=== PATIENT | female | born 1935 | race Two or more races ===

== ENCOUNTER 2016-06-30 18:03 | Inpatient (IN) | payer OTHER, MEDICARE ==
[~2016-06-30] VITALS: Ht 160 cm; Wt 61.2 kg
[2016-06-30 18:11] VITALS: BP 121/62
[2016-06-30] MEDS ORDERED: ONDANSETRON HCL/PF - ER 4 MG/2 ML VIAL IV ONE (18:30)
[2016-06-30] MEDS ORDERED: MORPHINE SULFATE INJ 2 MG/ML DISP.SYRIN IV ONE (18:30)
[2016-06-30 18:32] LABS: BASOPHILS # (AUTO) 0.1 /CMM (0.0-0.2); BASOPHILS % (AUTO) 0.9 % (0.0-2.0); DIFF TOTAL % 100 %; EOSINOPHILS # (AUTO) 0.4 /CMM (0.0-0.7); EOSINOPHILS % (AUTO) 4.3 % (0.0-6.0); HEMATOCRIT 24 % (33-45); HEMOGLOBIN 7.5 g/dL (11.5-14.8); LYMPHOCYTES # (AUTO) 2.2 /CMM (0.8-4.8); LYMPHOCYTES % (AUTO) 24.4 % (20.0-44.0); MEAN CORPUSCULAR HEMOGLOBIN 32 PG (26.0-33.0); MEAN CORPUSCULAR HGB CONC 31 g/dl (31.0-36.0); MEAN CORPUSCULAR VOLUME 101 fL (82-100); MONOCYTES # (AUTO) 0.8 /CMM (0.1-1.30); MONOCYTES % (AUTO) 9.2 % (2.0-12.0); NEUTROPHILS # (AUTO) 5.7 /CMM (1.8-8.9); NEUTROPHILS % (AUTO) 61.2 % (43.0-81.0); PLATELET COUNT (AUTO) 218 /CMM (150-450); RED BLOOD CELL COUNT(AUTO) 2.37 MIL/uL (4.0-5.2); WHITE BLOOD COUNT (AUTO) 9.2 K/uL (4.3-11.0)
[2016-06-30 18:51] LABS: CALCIUM, SERUM 8.9 mg/dL (8.5-10.1); CREATININE 2.3 mg/dL (0.6-1.3); POTASSIUM 4.5 mmol/L (3.5-5.1)
[2016-06-30 18:54] LABS: INR 1.12 (0.87-1.13); PROTHROMBIN TIME 11.8 SECS (9.5-12.7)
[2016-06-30 18:56] LABS: ALBUMIN 2.2 g/dL (3.4-5.0); BILIRUBIN,DIRECT 0.1 mg/dL (0.0-0.2); BILIRUBIN,TOTAL 0.3 mg/dL (0.2-1.0); INDIRECT BILIRUBIN 0.2 mg/dL (0.0-1.1)
[2016-06-30 18:58] VITALS: BP 108/57
[2016-06-30] MEDS ORDERED: ONDANSETRON HCL/PF 4 MG/2 ML VIAL ONE (19:03)
[2016-06-30] MEDS ORDERED: MORPHINE SULFATE INJ 2 MG/ML DISP.SYRIN ONE (19:03)
[2016-06-30 20:00] VITALS: BP 103/47
[2016-06-30 21:08] VITALS: BP 110/57
[2016-06-30 21:30] VITALS: BP 103/47
[2016-06-30] MEDS ORDERED: RENAL NOVASOURCE 1,000 ML BOTTLE GT PRN (22:30)
[2016-06-30] MEDS ORDERED: SILD20TA2 GT (23:24)
[2016-06-30] MEDS ORDERED: BISA10SU8 RC (23:24)
[2016-06-30] MEDS ORDERED: MIRT7.5T10 GT (23:24)
[2016-06-30] MEDS ORDERED: TRAM50TA2 GT (23:24)
[2016-06-30] MEDS ORDERED: LEVE100S GT (23:24)
[2016-06-30] MEDS ORDERED: AMIN30LI2 GT (23:24)
[2016-06-30] MEDS ORDERED: LACT10SO6 GT (23:24)
[2016-06-30] MEDS ORDERED: ZINC220T GT (23:24)
[2016-06-30] MEDS ORDERED: DOCU100T2 GT (23:24)
[2016-06-30] MEDS ORDERED: LANS30CA56 GT (23:24)
[2016-06-30] MEDS ORDERED: MIDO5TAB GT (23:24)
[2016-06-30] MEDS ORDERED: ALBU2.5V38 NEB (23:24)
[2016-06-30] MEDS ORDERED: IPRA0.2S9 IH (23:24)
[2016-06-30] MEDS ORDERED: FOLI0.8T2 GT (23:24)
[2016-06-30] MEDS ORDERED: ACET160L15 GT (23:24)
[2016-06-30] MEDS ORDERED: APIX2.5T GT (23:24)
[2016-07-01] VITALS (11 sets, daily range): BP systolic 87–116; BP diastolic 43–61
[2016-07-01 07:20] LABS: BASOPHILS # (AUTO) 0.1 /CMM (0.0-0.2); BASOPHILS % (AUTO) 0.9 % (0.0-2.0); DIFF TOTAL % 100 %; EOSINOPHILS # (AUTO) 0.4 /CMM (0.0-0.7); EOSINOPHILS % (AUTO) 5.5 % (0.0-6.0); HEMATOCRIT 22 % (33-45); HEMOGLOBIN 7.2 g/dL (11.5-14.8); INR 1.08 (0.87-1.13); LYMPHOCYTES # (AUTO) 1.3 /CMM (0.8-4.8); LYMPHOCYTES % (AUTO) 17.4 % (20.0-44.0); MEAN CORPUSCULAR HEMOGLOBIN 32 PG (26.0-33.0); MEAN CORPUSCULAR HGB CONC 32 g/dl (31.0-36.0); MEAN CORPUSCULAR VOLUME 101 fL (82-100); MONOCYTES # (AUTO) 0.6 /CMM (0.1-1.30); MONOCYTES % (AUTO) 8.7 % (2.0-12.0); NEUTROPHILS # (AUTO) 4.9 /CMM (1.8-8.9); NEUTROPHILS % (AUTO) 67.5 % (43.0-81.0); PLATELET COUNT (AUTO) 193 /CMM (150-450); PROTHROMBIN TIME 11.7 SECS (9.5-12.7); RED BLOOD CELL COUNT(AUTO) 2.23 MIL/uL (4.0-5.2); WHITE BLOOD COUNT (AUTO) 7.2 K/uL (4.3-11.0)
[2016-07-01 07:59] LABS: CREATININE 2.4 mg/dL (0.6-1.3); PHOSPHORUS 3.6 mg/dL (2.5-4.9); POTASSIUM 4.3 mmol/L (3.5-5.1)
[2016-07-01] MEDS ORDERED: EPOETIN ALFA (10,000 UNIT) 10,000 UNIT/ML VIAL IV ONE (12:00)
[2016-07-01] MEDS: Z GUARD REMEDY 2 OZ OINT TP SCH ×2 (12:52→17:28)
[2016-07-01] MEDS: HYDROGEL DRESSING 90 GM TUBE TP SCH (12:52)
[2016-07-01] MEDS ORDERED: MIRTAZAPINE 15 MG TABLET GT PRN (14:00)
[2016-07-01] MEDS ORDERED: BISACODYL SUPP (10 MG) 10 MG/SUPP.RECT SUPP.RECT RC PRN (14:00)
[2016-07-01] MEDS ORDERED: LACTULOSE 10 G/15 ML UDC (PYXIS) GT PRN (14:00)
[2016-07-01] MEDS ORDERED: HOME MED MISCELLANEOUS XX SCH (14:00)
[2016-07-01] MEDS ORDERED: IV NS 0.9% 250 ML IV ONE ×2 (15:09→21:12)
[2016-07-01] MEDS ORDERED: BLOOD IV SET 1 EA INFUS.SET MC ONE (15:10)
[2016-07-01] MEDS: SILDENAFIL CITRATE 20 MG TABLET GT SCH (17:25)
[2016-07-01] MEDS: PROSOURCE / PROSTAT (PYXIS) 30 ML UDC GT SCH (17:25)
[2016-07-01] MEDS: Z GUARD REMEDY 2 OZ OINT TP PRN (17:27)
[2016-07-01] MEDS: APIXABAN 2.5 MG TABLET GT SCH (18:18)
[2016-07-01] MEDS: ALBUTEROL FS 2.5 MG/3 ML VIAL.NEB NEB SCH (19:59)
[2016-07-01] MEDS: IPRATROPIUM NEB FS 0.5 MG/2.5 ML AMPUL.NEB IH SCH (20:00)
[2016-07-01] MEDS: TRAMADOL HCL 50 MG TABLET GT SCH (21:17)
[2016-07-01] MEDS: DOCUSATE SODIUM LIQ 100 MG/10 ML UDC GT SCH (21:17)
[2016-07-01] MEDS: LEVETIRACETAM SOL (5 ML) 100 MG/ML UDC GT SCH (21:17)
[2016-07-01] MEDS ORDERED: SECONDARY IV SET 1 EA INFUS.SET MC ONE (21:17)
[2016-07-01] MEDS ORDERED: IV SET PRIMARY 1 EA INFUS.SET MC ONE (21:18)
[2016-07-02] VITALS (8 sets, daily range): BP systolic 69–101; BP diastolic 41–68
[2016-07-02] MEDS: ALBUTEROL FS 2.5 MG/3 ML VIAL.NEB NEB SCH ×4 (01:17→19:50)
[2016-07-02] MEDS: IPRATROPIUM NEB FS 0.5 MG/2.5 ML AMPUL.NEB IH SCH ×4 (01:18→19:50)
[2016-07-02] MEDS: RENAL NOVASOURCE 1,000 ML BOTTLE GT PRN (06:47)
[2016-07-02 07:24] LABS: BASOPHILS % (AUTO) 0.6 % (0.0-2.0); DIFF TOTAL % 100 %; EOSINOPHILS # (AUTO) 0.2 /CMM (0.0-0.7); EOSINOPHILS % (AUTO) 3.3 % (0.0-6.0); HEMATOCRIT 26 % (33-45); HEMOGLOBIN 8.3 g/dL (11.5-14.8); LYMPHOCYTES # (AUTO) 1.2 /CMM (0.8-4.8); MEAN CORPUSCULAR HEMOGLOBIN 32 PG (26.0-33.0); MEAN CORPUSCULAR HGB CONC 33 g/dl (31.0-36.0); MEAN CORPUSCULAR VOLUME 99 fL (82-100); MONOCYTES # (AUTO) 0.6 /CMM (0.1-1.30); MONOCYTES % (AUTO) 8.1 % (2.0-12.0); NEUTROPHILS # (AUTO) 5.2 /CMM (1.8-8.9); PLATELET COUNT (AUTO) 183 /CMM (150-450); RED BLOOD CELL COUNT(AUTO) 2.59 MIL/uL (4.0-5.2); WHITE BLOOD COUNT (AUTO) 7.2 K/uL (4.3-11.0)
[2016-07-02 07:40] LABS: CALCIUM, SERUM 8.5 mg/dL (8.5-10.1); PHOSPHORUS 2.7 mg/dL (2.5-4.9); POTASSIUM 4.5 mmol/L (3.5-5.1)
[2016-07-02] MEDS: PANTOPRAZOLE 40 MG/PACK PACK GT SCH (09:35)
[2016-07-02] MEDS: ZINC SULFATE 220 MG CAPSULE GT SCH (09:35)
[2016-07-02] MEDS: DOCUSATE SODIUM LIQ 100 MG/10 ML UDC GT SCH ×2 (09:35→20:31)
[2016-07-02] MEDS: LEVETIRACETAM SOL (5 ML) 100 MG/ML UDC GT SCH ×2 (09:35→20:31)
[2016-07-02] MEDS: SILDENAFIL CITRATE 20 MG TABLET GT SCH ×3 (09:35→16:39)
[2016-07-02] MEDS: VIT B CMPLX 3/FA/VIT C/BIOTIN 1 TAB TABLET GT SCH (09:35)
[2016-07-02] MEDS: HYDROGEL DRESSING 90 GM TUBE TP SCH (09:36)
[2016-07-02] MEDS: TRAMADOL HCL 50 MG TABLET GT SCH ×2 (09:36→20:31)
[2016-07-02] MEDS: Z GUARD REMEDY 2 OZ OINT TP SCH ×2 (09:36→16:40)
[2016-07-02] MEDS: PROSOURCE / PROSTAT (PYXIS) 30 ML UDC GT SCH ×3 (09:36→16:39)
[2016-07-02] MEDS: APIXABAN 2.5 MG TABLET GT SCH ×2 (10:30→16:39)
[2016-07-02] MEDS ORDERED: IV SET PRIMARY PUMP SET 1 EA INFUS.SET MC ONE (11:16)
[2016-07-02] MEDS ORDERED: SECONDARY IV SET 1 EA INFUS.SET MC ONE (12:30)
[2016-07-02] MEDS: ALBUMIN 25% 25 GM in PREMIX 1 EA IV PRN (12:37)
[2016-07-02] MEDS: MIDODRINE HCL (5MG) 5 MG TABLET GT PRN (15:13)
[2016-07-03] VITALS (8 sets, daily range): BP systolic 99–126; BP diastolic 38–62
[2016-07-03] MEDS: ALBUTEROL FS 2.5 MG/3 ML VIAL.NEB NEB SCH ×5 (01:43→20:07)
[2016-07-03] MEDS: IPRATROPIUM NEB FS 0.5 MG/2.5 ML AMPUL.NEB IH SCH ×4 (01:43→20:07)
[2016-07-03] MEDS: RENAL NOVASOURCE 1,000 ML BOTTLE GT PRN (05:20)
[2016-07-03] MEDS: LEVETIRACETAM SOL (5 ML) 100 MG/ML UDC GT SCH ×2 (08:06→21:55)
[2016-07-03] MEDS: APIXABAN 2.5 MG TABLET GT SCH ×2 (08:06→16:01)
[2016-07-03] MEDS: PROSOURCE / PROSTAT (PYXIS) 30 ML UDC GT SCH ×3 (08:07→16:01)
[2016-07-03] MEDS: ZINC SULFATE 220 MG CAPSULE GT SCH (08:07)
[2016-07-03] MEDS: DOCUSATE SODIUM LIQ 100 MG/10 ML UDC GT SCH ×2 (08:07→21:55)
[2016-07-03] MEDS: SILDENAFIL CITRATE 20 MG TABLET GT SCH ×3 (08:07→16:01)
[2016-07-03] MEDS: TRAMADOL HCL 50 MG TABLET GT SCH ×2 (08:07→21:57)
[2016-07-03] MEDS: PANTOPRAZOLE 40 MG/PACK PACK GT SCH (08:07)
[2016-07-03] MEDS: VIT B CMPLX 3/FA/VIT C/BIOTIN 1 TAB TABLET GT SCH (08:07)
[2016-07-03] MEDS: Z GUARD REMEDY 2 OZ OINT TP SCH ×2 (08:08→16:02)
[2016-07-03] MEDS: HYDROGEL DRESSING 90 GM TUBE TP SCH (08:08)
[2016-07-03] MEDS ORDERED: SECONDARY IV SET 1 EA INFUS.SET MC ONE (18:27)
[2016-07-03] MEDS: MIDODRINE HCL (5MG) 5 MG TABLET GT PRN (18:31)
[2016-07-03] MEDS: ALBUMIN 25% 25 GM in PREMIX 1 EA IV PRN (18:31)
[2016-07-04] VITALS: BP 116/68
[2016-07-04] MEDS: ALBUTEROL FS 2.5 MG/3 ML VIAL.NEB NEB SCH ×5 (01:26→19:56)
[2016-07-04] MEDS: IPRATROPIUM NEB FS 0.5 MG/2.5 ML AMPUL.NEB IH SCH ×4 (01:26→19:56)
[2016-07-04 04:00] VITALS: BP 97/53
[2016-07-04] MEDS: RENAL NOVASOURCE 1,000 ML BOTTLE GT PRN (04:26)
[2016-07-04 07:21] LABS: BASOPHILS % (AUTO) 0.2 % (0.0-2.0); DIFF TOTAL % 100 %; EOSINOPHILS # (AUTO) 0.2 /CMM (0.0-0.7); EOSINOPHILS % (AUTO) 2.3 % (0.0-6.0); HEMATOCRIT 25 % (33-45); HEMOGLOBIN 8.1 g/dL (11.5-14.8); LYMPHOCYTES # (AUTO) 1.3 /CMM (0.8-4.8); LYMPHOCYTES % (AUTO) 14.5 % (20.0-44.0); MEAN CORPUSCULAR HEMOGLOBIN 32 PG (26.0-33.0); MEAN CORPUSCULAR HGB CONC 32 g/dl (31.0-36.0); MEAN CORPUSCULAR VOLUME 99 fL (82-100); MONOCYTES # (AUTO) 0.8 /CMM (0.1-1.30); MONOCYTES % (AUTO) 8.5 % (2.0-12.0); NEUTROPHILS # (AUTO) 6.8 /CMM (1.8-8.9); NEUTROPHILS % (AUTO) 74.5 % (43.0-81.0); PLATELET COUNT (AUTO) 194 /CMM (150-450); RED BLOOD CELL COUNT(AUTO) 2.54 MIL/uL (4.0-5.2); WHITE BLOOD COUNT (AUTO) 9.1 K/uL (4.3-11.0)
[2016-07-04 07:37] LABS: CALCIUM, SERUM 8.7 mg/dL (8.5-10.1); CREATININE 1.7 mg/dL (0.6-1.3); PHOSPHORUS 1.6 mg/dL (2.5-4.9); POTASSIUM 3.7 mmol/L (3.5-5.1)
[2016-07-04 08:00] VITALS: BP 112/47
[2016-07-04] MEDS: VIT B CMPLX 3/FA/VIT C/BIOTIN 1 TAB TABLET GT SCH (08:31)
[2016-07-04] MEDS: LEVETIRACETAM SOL (5 ML) 100 MG/ML UDC GT SCH ×2 (08:31→20:51)
[2016-07-04] MEDS: APIXABAN 2.5 MG TABLET GT SCH ×2 (08:31→16:49)
[2016-07-04] MEDS: DOCUSATE SODIUM LIQ 100 MG/10 ML UDC GT SCH ×2 (08:31→20:51)
[2016-07-04] MEDS: PANTOPRAZOLE 40 MG/PACK PACK GT SCH (08:31)
[2016-07-04] MEDS: SILDENAFIL CITRATE 20 MG TABLET GT SCH ×3 (08:31→16:49)
[2016-07-04] MEDS: ZINC SULFATE 220 MG CAPSULE GT SCH (08:31)
[2016-07-04] MEDS: PROSOURCE / PROSTAT (PYXIS) 30 ML UDC GT SCH ×3 (08:31→16:49)
[2016-07-04] MEDS: TRAMADOL HCL 50 MG TABLET GT SCH ×3 (08:32→20:59)
[2016-07-04] MEDS: HYDROGEL DRESSING 90 GM TUBE TP SCH (08:32)
[2016-07-04] MEDS: Z GUARD REMEDY 2 OZ OINT TP PRN (08:32)
[2016-07-04] MEDS: Z GUARD REMEDY 2 OZ OINT TP SCH ×2 (08:33→16:49)
[2016-07-04 12:00] VITALS: BP 99/54
[2016-07-04 16:00] VITALS: BP 106/40
[2016-07-04] MEDS ORDERED: NEUTRA PHOS 1 POWD.PACKET NG ONE (17:00)
[2016-07-04 20:00] VITALS: BP 93/46
[2016-07-05] VITALS: BP 99/53
[2016-07-05] MEDS: IPRATROPIUM NEB FS 0.5 MG/2.5 ML AMPUL.NEB IH SCH ×4 (01:41→19:34)
[2016-07-05] MEDS: ALBUTEROL FS 2.5 MG/3 ML VIAL.NEB NEB SCH ×4 (01:41→19:34)
[2016-07-05 04:00] VITALS: BP 106/55
[2016-07-05] MEDS: RENAL NOVASOURCE 1,000 ML BOTTLE GT PRN (04:36)
[2016-07-05 06:53] LABS: BASOPHILS % (AUTO) 0.3 % (0.0-2.0); DIFF TOTAL % 100 %; EOSINOPHILS # (AUTO) 0.1 /CMM (0.0-0.7); EOSINOPHILS % (AUTO) 1.2 % (0.0-6.0); HEMATOCRIT 25 % (33-45); HEMOGLOBIN 8.4 g/dL (11.5-14.8); LYMPHOCYTES # (AUTO) 1.5 /CMM (0.8-4.8); MEAN CORPUSCULAR HEMOGLOBIN 33 PG (26.0-33.0); MEAN CORPUSCULAR HGB CONC 33 g/dl (31.0-36.0); MEAN CORPUSCULAR VOLUME 99 fL (82-100); MONOCYTES # (AUTO) 0.9 /CMM (0.1-1.30); MONOCYTES % (AUTO) 8.6 % (2.0-12.0); NEUTROPHILS # (AUTO) 7.7 /CMM (1.8-8.9); NEUTROPHILS % (AUTO) 74.9 % (43.0-81.0); PLATELET COUNT (AUTO) 201 /CMM (150-450); RED BLOOD CELL COUNT(AUTO) 2.57 MIL/uL (4.0-5.2); WHITE BLOOD COUNT (AUTO) 10.3 K/uL (4.3-11.0)
[2016-07-05 07:04] LABS: CALCIUM, SERUM 8.9 mg/dL (8.5-10.1); PHOSPHORUS 2.3 mg/dL (2.5-4.9)
[2016-07-05 08:00] VITALS: BP 102/47
[2016-07-05] MEDS: PROSOURCE / PROSTAT (PYXIS) 30 ML UDC GT SCH ×3 (08:23→17:35)
[2016-07-05] MEDS: VIT B CMPLX 3/FA/VIT C/BIOTIN 1 TAB TABLET GT SCH (08:23)
[2016-07-05] MEDS: SILDENAFIL CITRATE 20 MG TABLET GT SCH ×3 (08:23→17:34)
[2016-07-05] MEDS: PANTOPRAZOLE 40 MG/PACK PACK GT SCH (08:23)
[2016-07-05] MEDS: LEVETIRACETAM SOL (5 ML) 100 MG/ML UDC GT SCH ×2 (08:23→21:30)
[2016-07-05] MEDS: APIXABAN 2.5 MG TABLET GT SCH ×2 (08:23→17:40)
[2016-07-05] MEDS: ZINC SULFATE 220 MG CAPSULE GT SCH (08:23)
[2016-07-05] MEDS: DOCUSATE SODIUM LIQ 100 MG/10 ML UDC GT SCH ×2 (08:23→21:30)
[2016-07-05] MEDS: Z GUARD REMEDY 2 OZ OINT TP SCH ×2 (08:24→17:36)
[2016-07-05] MEDS: HYDROGEL DRESSING 90 GM TUBE TP SCH (08:24)
[2016-07-05] MEDS: TRAMADOL HCL 50 MG TABLET GT SCH ×3 (09:00→21:00)
[2016-07-05] MEDS ORDERED: EPOETIN ALFA (10,000 UNIT) 10,000 UNIT/ML VIAL SQ ONE (11:00)
[2016-07-05 12:00] VITALS: BP 122/45
[2016-07-05] MEDS: ACETAMINOPHEN 650 MG/20.3 ML UDC GT PRN (15:53)
[2016-07-05 16:00] VITALS: BP 125/42
[2016-07-05] MEDS ORDERED: IV NS 0.9% 250 ML IV ONE (17:00)
[2016-07-05] MEDS ORDERED: IV SET PRIMARY 1 EA INFUS.SET MC ONE (17:29)
[2016-07-05] MEDS ORDERED: IV SET PRIMARY PUMP SET 1 EA INFUS.SET MC ONE (17:29)
[2016-07-05] MEDS: LORAZEPAM 0.5 MG TABLET PO PRN (17:34)
[2016-07-05] MEDS: CARVEDILOL 3.125 MG TABLET GT SCH (17:35)
[2016-07-05 20:00] VITALS: BP 75/55
[2016-07-06] VITALS: BP 94/50
[2016-07-06] MEDS: ALBUTEROL FS 2.5 MG/3 ML VIAL.NEB NEB SCH ×4 (01:37→20:23)
[2016-07-06] MEDS: IPRATROPIUM NEB FS 0.5 MG/2.5 ML AMPUL.NEB IH SCH ×4 (01:38→20:23)
[2016-07-06 04:00] VITALS: BP 98/44
[2016-07-06] MEDS: ACETAMINOPHEN 650 MG/20.3 ML UDC GT PRN (04:58)
[2016-07-06] MEDS: RENAL NOVASOURCE 1,000 ML BOTTLE GT PRN (04:59)
[2016-07-06 08:00] VITALS: BP 82/44
[2016-07-06] MEDS: DOCUSATE SODIUM LIQ 100 MG/10 ML UDC GT SCH ×2 (08:41→20:51)
[2016-07-06] MEDS: PROSOURCE / PROSTAT (PYXIS) 30 ML UDC GT SCH ×3 (08:41→16:20)
[2016-07-06] MEDS: LEVETIRACETAM SOL (5 ML) 100 MG/ML UDC GT SCH ×2 (08:41→20:51)
[2016-07-06] MEDS: VIT B CMPLX 3/FA/VIT C/BIOTIN 1 TAB TABLET GT SCH (08:41)
[2016-07-06] MEDS: PANTOPRAZOLE 40 MG/PACK PACK GT SCH (08:41)
[2016-07-06] MEDS: ZINC SULFATE 220 MG CAPSULE GT SCH (08:41)
[2016-07-06] MEDS: APIXABAN 2.5 MG TABLET GT SCH ×2 (08:42→16:20)
[2016-07-06] MEDS: CARVEDILOL 3.125 MG TABLET GT SCH ×2 (08:42→21:00)
[2016-07-06] MEDS: TRAMADOL HCL 50 MG TABLET GT SCH ×2 (08:42→21:00)
[2016-07-06] MEDS: SILDENAFIL CITRATE 20 MG TABLET GT SCH ×3 (08:42→16:20)
[2016-07-06] MEDS: HYDROGEL DRESSING 90 GM TUBE TP SCH (08:43)
[2016-07-06] MEDS: Z GUARD REMEDY 2 OZ OINT TP PRN (08:43)
[2016-07-06] MEDS: Z GUARD REMEDY 2 OZ OINT TP SCH ×2 (08:44→16:21)
[2016-07-06] MEDS ORDERED: SECONDARY IV SET 1 EA INFUS.SET MC ONE (09:57)
[2016-07-06] MEDS: ALBUMIN 25% 25 GM in PREMIX 1 EA IV PRN (10:00)
[2016-07-06] MEDS ORDERED: MIDODRINE HCL (5MG) 5 MG TABLET PO SCH (10:30)
[2016-07-06 12:00] VITALS: BP 97/45
[2016-07-06] MEDS: MIDODRINE HCL (5MG) 5 MG TABLET GT PRN (12:12)
[2016-07-06 16:00] VITALS: BP 107/49
[2016-07-06] MEDS: LORAZEPAM 0.5 MG TABLET PO PRN (17:53)
[2016-07-06 20:00] VITALS: BP_SYST 107; BP_SYST 95; BP_DIAS 49
[2016-07-06] MEDS ORDERED: ONDANSETRON HCL/PF 4 MG/2 ML VIAL IV PRN (20:00)
[2016-07-07] VITALS (13 sets, daily range): BP systolic 61–126; BP diastolic 20–60
[2016-07-07] MEDS: ALBUTEROL FS 2.5 MG/3 ML VIAL.NEB NEB SCH ×4 (01:30→19:09)
[2016-07-07] MEDS: IPRATROPIUM NEB FS 0.5 MG/2.5 ML AMPUL.NEB IH SCH ×4 (01:58→19:10)
[2016-07-07] MEDS: RENAL NOVASOURCE 1,000 ML BOTTLE GT PRN (03:21)
[2016-07-07] MEDS: DOCUSATE SODIUM LIQ 100 MG/10 ML UDC GT SCH ×2 (08:17→20:55)
[2016-07-07] MEDS: VIT B CMPLX 3/FA/VIT C/BIOTIN 1 TAB TABLET GT SCH (08:18)
[2016-07-07] MEDS: PANTOPRAZOLE 40 MG/PACK PACK GT SCH (08:18)
[2016-07-07] MEDS: SILDENAFIL CITRATE 20 MG TABLET GT SCH ×3 (08:18→17:50)
[2016-07-07] MEDS: ZINC SULFATE 220 MG CAPSULE GT SCH (08:18)
[2016-07-07] MEDS: TRAMADOL HCL 50 MG TABLET GT SCH ×2 (08:19→21:00)
[2016-07-07] MEDS: CARVEDILOL 3.125 MG TABLET GT SCH ×2 (08:19→14:55)
[2016-07-07] MEDS: PROSOURCE / PROSTAT (PYXIS) 30 ML UDC GT SCH ×3 (08:20→17:50)
[2016-07-07] MEDS: APIXABAN 2.5 MG TABLET GT SCH ×2 (08:20→17:50)
[2016-07-07] MEDS: LEVETIRACETAM SOL (5 ML) 100 MG/ML UDC GT SCH ×2 (08:20→20:55)
[2016-07-07] MEDS: Z GUARD REMEDY 2 OZ OINT TP SCH ×2 (08:31→17:50)
[2016-07-07] MEDS: HYDROGEL DRESSING 90 GM TUBE TP SCH (08:31)
[2016-07-07] MEDS: METOCLOPRAMIDE HCL 10 MG TABLET PO SCH ×2 (13:45→23:15)
[2016-07-07] MEDS: ACETAMINOPHEN 650 MG/20.3 ML UDC GT PRN (14:25)
[2016-07-07] MEDS: LORAZEPAM 0.5 MG TABLET PO PRN (14:26)
[2016-07-07] MEDS ORDERED: METOPROLOL TARTRATE 25 MG TABLET PO ONE (15:00)
[2016-07-07 15:47] LABS: BASOPHILS # (AUTO) 0.1 /CMM (0.0-0.2); BASOPHILS % (AUTO) 0.4 % (0.0-2.0); DIFF TOTAL % 100 %; EOSINOPHILS # (AUTO) 0.1 /CMM (0.0-0.7); EOSINOPHILS % (AUTO) 0.5 % (0.0-6.0); HEMATOCRIT 27 % (33-45); HEMOGLOBIN 8.8 g/dL (11.5-14.8); LYMPHOCYTES # (AUTO) 2.5 /CMM (0.8-4.8); LYMPHOCYTES % (AUTO) 14.1 % (20.0-44.0); MEAN CORPUSCULAR HEMOGLOBIN 32 PG (26.0-33.0); MEAN CORPUSCULAR HGB CONC 32 g/dl (31.0-36.0); MEAN CORPUSCULAR VOLUME 99 fL (82-100); MONOCYTES # (AUTO) 1.4 /CMM (0.1-1.30); MONOCYTES % (AUTO) 8.2 % (2.0-12.0); NEUTROPHILS # (AUTO) 13.4 /CMM (1.8-8.9); NEUTROPHILS % (AUTO) 76.8 % (43.0-81.0); PLATELET COUNT (AUTO) 266 /CMM (150-450); RED BLOOD CELL COUNT(AUTO) 2.78 MIL/uL (4.0-5.2); WHITE BLOOD COUNT (AUTO) 17.5 K/uL (4.3-11.0)
[2016-07-07 15:57] LABS: CREATININE 1.8 mg/dL (0.6-1.3); POTASSIUM 4.1 mmol/L (3.5-5.1)
[2016-07-07 16:01] LABS: PHOSPHORUS 3.4 mg/dL (2.5-4.9)
[2016-07-07] MEDS ORDERED: IV NS 0.9% 1,000 ML ONE (17:04)
[2016-07-07] MEDS ORDERED: IV SET PRIMARY PUMP SET 1 EA INFUS.SET MC ONE (17:05)
[2016-07-08] VITALS: BP 91/51
[2016-07-08] MEDS: ALBUTEROL FS 2.5 MG/3 ML VIAL.NEB NEB SCH ×4 (01:44→19:30)
[2016-07-08] MEDS: IPRATROPIUM NEB FS 0.5 MG/2.5 ML AMPUL.NEB IH SCH ×4 (01:44→19:30)
[2016-07-08 04:00] VITALS: BP 112/65
[2016-07-08] MEDS: METOCLOPRAMIDE HCL 10 MG TABLET PO SCH ×4 (06:09→23:38)
[2016-07-08] MEDS ORDERED: ALBUMIN 25% 25 GM in PREMIX 1 EA IV STA (06:54)
[2016-07-08] MEDS ORDERED: SECONDARY IV SET 1 EA INFUS.SET MC ONE (07:22)
[2016-07-08 08:00] VITALS: BP 77/33
[2016-07-08] MEDS: CARVEDILOL 3.125 MG TABLET GT SCH ×2 (09:00→21:00)
[2016-07-08] MEDS: SILDENAFIL CITRATE 20 MG TABLET GT SCH ×2 (09:00→12:43)
[2016-07-08] MEDS: DOCUSATE SODIUM LIQ 100 MG/10 ML UDC GT SCH ×2 (09:38→21:40)
[2016-07-08] MEDS: PROSOURCE / PROSTAT (PYXIS) 30 ML UDC GT SCH ×3 (09:38→17:21)
[2016-07-08] MEDS: LEVETIRACETAM SOL (5 ML) 100 MG/ML UDC GT SCH ×2 (09:38→21:40)
[2016-07-08] MEDS: VIT B CMPLX 3/FA/VIT C/BIOTIN 1 TAB TABLET GT SCH (09:39)
[2016-07-08] MEDS: APIXABAN 2.5 MG TABLET GT SCH ×2 (09:39→17:00)
[2016-07-08] MEDS: ZINC SULFATE 220 MG CAPSULE GT SCH (09:39)
[2016-07-08] MEDS: TRAMADOL HCL 50 MG TABLET GT SCH ×2 (09:39→21:00)
[2016-07-08] MEDS: HYDROGEL DRESSING 90 GM TUBE TP SCH (09:40)
[2016-07-08] MEDS: Z GUARD REMEDY 2 OZ OINT TP PRN (09:40)
[2016-07-08] MEDS: PANTOPRAZOLE 40 MG/PACK PACK GT SCH (09:40)
[2016-07-08] MEDS: Z GUARD REMEDY 2 OZ OINT TP SCH ×2 (09:49→17:23)
[2016-07-08 12:00] VITALS: BP 95/51
[2016-07-08] MEDS: ACETAMINOPHEN 650 MG/20.3 ML UDC GT PRN (12:42)
[2016-07-08 15:03] LABS: INR 1.17 (0.87-1.13); PROTHROMBIN TIME 12.7 SECS (9.5-12.7)
[2016-07-08 16:00] VITALS: BP 78/35
[2016-07-08] MEDS: MIDODRINE HCL (5MG) 5 MG TABLET GT PRN (17:22)
[2016-07-08 20:00] VITALS: BP 101/57
[2016-07-08] MEDS: RENAL NOVASOURCE 1,000 ML BOTTLE GT PRN (21:40)
[2016-07-09] VITALS: BP 122/48
[2016-07-09] MEDS: IPRATROPIUM NEB FS 0.5 MG/2.5 ML AMPUL.NEB IH SCH ×4 (02:10→20:02)
[2016-07-09] MEDS: ALBUTEROL FS 2.5 MG/3 ML VIAL.NEB NEB SCH ×4 (02:10→20:01)
[2016-07-09 04:00] VITALS: BP 142/74
[2016-07-09] MEDS: METOCLOPRAMIDE HCL 10 MG TABLET PO SCH ×4 (05:31→23:46)
[2016-07-09 08:00] VITALS: BP 108/62
[2016-07-09] MEDS: APIXABAN 2.5 MG TABLET GT SCH ×2 (09:00→16:06)
[2016-07-09] MEDS: CARVEDILOL 3.125 MG TABLET GT SCH ×2 (09:00→21:35)
[2016-07-09] MEDS: ZINC SULFATE 220 MG CAPSULE GT SCH (09:02)
[2016-07-09] MEDS: PROSOURCE / PROSTAT (PYXIS) 30 ML UDC GT SCH ×3 (09:02→16:10)
[2016-07-09] MEDS: TRAMADOL HCL 50 MG TABLET GT SCH ×2 (09:02→21:35)
[2016-07-09] MEDS: VIT B CMPLX 3/FA/VIT C/BIOTIN 1 TAB TABLET GT SCH (09:02)
[2016-07-09] MEDS: DOCUSATE SODIUM LIQ 100 MG/10 ML UDC GT SCH ×2 (09:02→21:34)
[2016-07-09] MEDS: LEVETIRACETAM SOL (5 ML) 100 MG/ML UDC GT SCH ×2 (09:02→21:34)
[2016-07-09] MEDS: PANTOPRAZOLE 40 MG/PACK PACK GT SCH (09:02)
[2016-07-09] MEDS: Z GUARD REMEDY 2 OZ OINT TP SCH ×2 (09:05→16:11)
[2016-07-09] MEDS: HYDROGEL DRESSING 90 GM TUBE TP SCH (09:05)
[2016-07-09] MEDS: MIDODRINE HCL (5MG) 5 MG TABLET GT PRN (10:35)
[2016-07-09 12:00] VITALS: BP 106/51
[2016-07-09 16:00] VITALS: BP 94/42
[2016-07-09] MEDS: RENAL NOVASOURCE 1,000 ML BOTTLE GT PRN (18:44)
[2016-07-09 20:00] VITALS: BP 125/53
[2016-07-10 00:15] VITALS: BP 105/54
[2016-07-10] MEDS: ALBUTEROL FS 2.5 MG/3 ML VIAL.NEB NEB SCH ×4 (01:28→19:53)
[2016-07-10] MEDS: IPRATROPIUM NEB FS 0.5 MG/2.5 ML AMPUL.NEB IH SCH ×4 (01:29→19:54)
[2016-07-10 04:00] VITALS: BP 94/49
[2016-07-10] MEDS: METOCLOPRAMIDE HCL 10 MG TABLET PO SCH ×4 (05:05→23:31)
[2016-07-10 07:44] LABS: BASOPHILS % (AUTO) 0.3 % (0.0-2.0); DIFF TOTAL % 100 %; EOSINOPHILS # (AUTO) 0.2 /CMM (0.0-0.7); EOSINOPHILS % (AUTO) 2.2 % (0.0-6.0); HEMATOCRIT 26 % (33-45); HEMOGLOBIN 8.5 g/dL (11.5-14.8); LYMPHOCYTES # (AUTO) 1.6 /CMM (0.8-4.8); MEAN CORPUSCULAR HEMOGLOBIN 32 PG (26.0-33.0); MEAN CORPUSCULAR HGB CONC 33 g/dl (31.0-36.0); MEAN CORPUSCULAR VOLUME 99 fL (82-100); MONOCYTES # (AUTO) 0.8 /CMM (0.1-1.30); MONOCYTES % (AUTO) 7.2 % (2.0-12.0); NEUTROPHILS % (AUTO) 75.3 % (43.0-81.0); PLATELET COUNT (AUTO) 237 /CMM (150-450); RED BLOOD CELL COUNT(AUTO) 2.63 MIL/uL (4.0-5.2); WHITE BLOOD COUNT (AUTO) 10.6 K/uL (4.3-11.0)
[2016-07-10 07:51] LABS: INR 1.08 (0.87-1.13); PROTHROMBIN TIME 11.7 SECS (9.5-12.7)
[2016-07-10 08:00] VITALS: BP_SYST 116; BP_DIAS 50; BP_DIAS 56
[2016-07-10 08:16] LABS: CALCIUM, SERUM 8.9 mg/dL (8.5-10.1); CREATININE 2.1 mg/dL (0.6-1.3); PHOSPHORUS 3.5 mg/dL (2.5-4.9)
[2016-07-10] MEDS ORDERED: SECONDARY IV SET 1 EA INFUS.SET MC ONE (08:32)
[2016-07-10] MEDS: APIXABAN 2.5 MG TABLET GT SCH ×2 (09:00→16:50)
[2016-07-10] MEDS: VIT B CMPLX 3/FA/VIT C/BIOTIN 1 TAB TABLET GT SCH (09:12)
[2016-07-10] MEDS: ZINC SULFATE 220 MG CAPSULE GT SCH (09:12)
[2016-07-10] MEDS: TRAMADOL HCL 50 MG TABLET GT SCH ×2 (09:12→20:28)
[2016-07-10] MEDS: DOCUSATE SODIUM LIQ 100 MG/10 ML UDC GT SCH ×2 (09:12→20:28)
[2016-07-10] MEDS: LEVETIRACETAM SOL (5 ML) 100 MG/ML UDC GT SCH ×2 (09:12→20:28)
[2016-07-10] MEDS: PANTOPRAZOLE 40 MG/PACK PACK GT SCH (09:12)
[2016-07-10] MEDS: MIDODRINE HCL (5MG) 5 MG TABLET GT PRN (09:13)
[2016-07-10] MEDS: PROSOURCE / PROSTAT (PYXIS) 30 ML UDC GT SCH ×3 (09:13→16:49)
[2016-07-10] MEDS: Z GUARD REMEDY 2 OZ OINT TP SCH ×2 (09:14→16:50)
[2016-07-10] MEDS: HYDROGEL DRESSING 90 GM TUBE TP SCH (09:14)
[2016-07-10] MEDS: CARVEDILOL 3.125 MG TABLET GT SCH ×2 (09:14→20:11)
[2016-07-10 12:00] VITALS: BP 104/54
[2016-07-10 16:00] VITALS: BP 115/57
[2016-07-10] MEDS: RENAL NOVASOURCE 1,000 ML BOTTLE GT PRN (16:49)
[2016-07-10 20:00] VITALS: BP 92/45
[2016-07-11 00:15] VITALS: BP 96/31
[2016-07-11] MEDS: IPRATROPIUM NEB FS 0.5 MG/2.5 ML AMPUL.NEB IH SCH ×4 (01:33→19:44)
[2016-07-11] MEDS: ALBUTEROL FS 2.5 MG/3 ML VIAL.NEB NEB SCH ×4 (01:33→19:45)
[2016-07-11 04:00] VITALS: BP 110/67
[2016-07-11] MEDS: METOCLOPRAMIDE HCL 10 MG TABLET PO SCH ×4 (05:24→23:47)
[2016-07-11 08:00] VITALS: BP_SYST 106; BP_SYST 99; BP_DIAS 50
[2016-07-11] MEDS: VIT B CMPLX 3/FA/VIT C/BIOTIN 1 TAB TABLET GT SCH (08:32)
[2016-07-11] MEDS: PROSOURCE / PROSTAT (PYXIS) 30 ML UDC GT SCH ×3 (08:32→17:09)
[2016-07-11] MEDS: PANTOPRAZOLE 40 MG/PACK PACK GT SCH (08:32)
[2016-07-11] MEDS: DOCUSATE SODIUM LIQ 100 MG/10 ML UDC GT SCH ×2 (08:32→22:42)
[2016-07-11] MEDS: LEVETIRACETAM SOL (5 ML) 100 MG/ML UDC GT SCH ×2 (08:32→22:43)
[2016-07-11] MEDS: TRAMADOL HCL 50 MG TABLET GT SCH ×2 (08:33→22:44)
[2016-07-11] MEDS: ZINC SULFATE 220 MG CAPSULE GT SCH (08:33)
[2016-07-11] MEDS: HYDROGEL DRESSING 90 GM TUBE TP SCH (08:34)
[2016-07-11] MEDS: Z GUARD REMEDY 2 OZ OINT TP SCH ×2 (08:34→18:11)
[2016-07-11] MEDS: CARVEDILOL 3.125 MG TABLET GT SCH ×2 (08:35→21:00)
[2016-07-11] MEDS: APIXABAN 2.5 MG TABLET GT SCH ×2 (09:00→17:00)
[2016-07-11 12:00] VITALS: BP 94/41
[2016-07-11 16:00] VITALS: BP 96/41
[2016-07-11] MEDS: LORAZEPAM 0.5 MG TABLET PO PRN (17:09)
[2016-07-11] MEDS: RENAL NOVASOURCE 1,000 ML BOTTLE GT PRN (17:10)
[2016-07-11] MEDS: ACETAMINOPHEN 650 MG/20.3 ML UDC GT PRN (17:39)
[2016-07-11 20:00] VITALS: BP 102/42
[2016-07-12] VITALS (8 sets, daily range): BP systolic 88–112; BP diastolic 36–65
[2016-07-12] MEDS: ALBUTEROL FS 2.5 MG/3 ML VIAL.NEB NEB SCH ×4 (01:24→19:40)
[2016-07-12] MEDS: IPRATROPIUM NEB FS 0.5 MG/2.5 ML AMPUL.NEB IH SCH ×4 (01:24→19:40)
[2016-07-12] MEDS: METOCLOPRAMIDE HCL 10 MG TABLET PO SCH ×3 (07:06→17:41)
[2016-07-12 08:02] LABS: BASOPHILS % (AUTO) 0.4 % (0.0-2.0); DIFF TOTAL % 100 %; EOSINOPHILS # (AUTO) 0.2 /CMM (0.0-0.7); EOSINOPHILS % (AUTO) 1.9 % (0.0-6.0); HEMATOCRIT 24 % (33-45); HEMOGLOBIN 7.8 g/dL (11.5-14.8); LYMPHOCYTES # (AUTO) 1.4 /CMM (0.8-4.8); LYMPHOCYTES % (AUTO) 12.6 % (20.0-44.0); MEAN CORPUSCULAR HEMOGLOBIN 31 PG (26.0-33.0); MEAN CORPUSCULAR HGB CONC 32 g/dl (31.0-36.0); MEAN CORPUSCULAR VOLUME 98 fL (82-100); MONOCYTES # (AUTO) 0.6 /CMM (0.1-1.30); NEUTROPHILS # (AUTO) 8.5 /CMM (1.8-8.9); NEUTROPHILS % (AUTO) 79.1 % (43.0-81.0); PLATELET COUNT (AUTO) 225 /CMM (150-450); RED BLOOD CELL COUNT(AUTO) 2.49 MIL/uL (4.0-5.2); WHITE BLOOD COUNT (AUTO) 10.7 K/uL (4.3-11.0)
[2016-07-12 08:38] LABS: CREATININE 1.9 mg/dL (0.6-1.3); PHOSPHORUS 3.3 mg/dL (2.5-4.9); POTASSIUM 4.2 mmol/L (3.5-5.1)
[2016-07-12] MEDS: ZINC SULFATE 220 MG CAPSULE GT SCH (08:49)
[2016-07-12] MEDS: VIT B CMPLX 3/FA/VIT C/BIOTIN 1 TAB TABLET GT SCH (08:49)
[2016-07-12] MEDS: PANTOPRAZOLE 40 MG/PACK PACK GT SCH (08:49)
[2016-07-12] MEDS: LEVETIRACETAM SOL (5 ML) 100 MG/ML UDC GT SCH ×2 (08:49→21:15)
[2016-07-12] MEDS: PROSOURCE / PROSTAT (PYXIS) 30 ML UDC GT SCH ×3 (08:49→17:41)
[2016-07-12] MEDS: DOCUSATE SODIUM LIQ 100 MG/10 ML UDC GT SCH ×2 (08:49→21:15)
[2016-07-12] MEDS: TRAMADOL HCL 50 MG TABLET GT SCH ×2 (08:50→21:14)
[2016-07-12] MEDS: CARVEDILOL 3.125 MG TABLET GT SCH ×2 (08:50→21:15)
[2016-07-12] MEDS: APIXABAN 2.5 MG TABLET GT SCH ×2 (08:50→17:41)
[2016-07-12] MEDS: HYDROGEL DRESSING 90 GM TUBE TP SCH (08:51)
[2016-07-12] MEDS: Z GUARD REMEDY 2 OZ OINT TP SCH ×2 (08:51→17:45)
[2016-07-12] MEDS: ACETAMINOPHEN 650 MG/20.3 ML UDC GT PRN (12:43)
[2016-07-13] VITALS (7 sets, daily range): BP systolic 85–104; BP diastolic 42–54
[2016-07-13] MEDS: METOCLOPRAMIDE HCL 10 MG TABLET PO SCH ×5 (00:09→23:56)
[2016-07-13] MEDS: ALBUTEROL FS 2.5 MG/3 ML VIAL.NEB NEB SCH ×4 (00:59→20:11)
[2016-07-13] MEDS: IPRATROPIUM NEB FS 0.5 MG/2.5 ML AMPUL.NEB IH SCH ×4 (00:59→20:11)
[2016-07-13] MEDS: RENAL NOVASOURCE 1,000 ML BOTTLE GT PRN (05:58)
[2016-07-13] MEDS: CARVEDILOL 3.125 MG TABLET GT SCH ×2 (09:00→20:37)
[2016-07-13] MEDS: APIXABAN 2.5 MG TABLET GT SCH ×2 (09:05→17:28)
[2016-07-13] MEDS: LEVETIRACETAM SOL (5 ML) 100 MG/ML UDC GT SCH ×2 (09:06→20:33)
[2016-07-13] MEDS: ZINC SULFATE 220 MG CAPSULE GT SCH (09:06)
[2016-07-13] MEDS: TRAMADOL HCL 50 MG TABLET GT SCH ×2 (09:06→20:32)
[2016-07-13] MEDS: PANTOPRAZOLE 40 MG/PACK PACK GT SCH (09:06)
[2016-07-13] MEDS: DOCUSATE SODIUM LIQ 100 MG/10 ML UDC GT SCH ×2 (09:06→20:33)
[2016-07-13] MEDS: VIT B CMPLX 3/FA/VIT C/BIOTIN 1 TAB TABLET GT SCH (09:06)
[2016-07-13] MEDS: HYDROGEL DRESSING 90 GM TUBE TP SCH (09:07)
[2016-07-13] MEDS: Z GUARD REMEDY 2 OZ OINT TP SCH ×2 (09:07→17:29)
[2016-07-13] MEDS: PROSOURCE / PROSTAT (PYXIS) 30 ML UDC GT SCH ×3 (09:07→17:28)
[2016-07-13] MEDS: LORAZEPAM 0.5 MG TABLET PO PRN ×2 (10:16→20:37)
[2016-07-14] VITALS (7 sets, daily range): BP systolic 92–152; BP diastolic 42–64
[2016-07-14] MEDS: IPRATROPIUM NEB FS 0.5 MG/2.5 ML AMPUL.NEB IH SCH ×4 (01:50→19:41)
[2016-07-14] MEDS: ALBUTEROL FS 2.5 MG/3 ML VIAL.NEB NEB SCH ×4 (01:50→19:41)
[2016-07-14] MEDS: METOCLOPRAMIDE HCL 10 MG TABLET PO SCH ×3 (05:21→18:18)
[2016-07-14] MEDS: RENAL NOVASOURCE 1,000 ML BOTTLE GT PRN (05:21)
[2016-07-14] MEDS: LEVETIRACETAM SOL (5 ML) 100 MG/ML UDC GT SCH ×2 (08:13→21:37)
[2016-07-14] MEDS: PROSOURCE / PROSTAT (PYXIS) 30 ML UDC GT SCH ×3 (08:13→18:19)
[2016-07-14] MEDS: VIT B CMPLX 3/FA/VIT C/BIOTIN 1 TAB TABLET GT SCH (08:13)
[2016-07-14] MEDS: DOCUSATE SODIUM LIQ 100 MG/10 ML UDC GT SCH ×2 (08:13→21:37)
[2016-07-14] MEDS: ZINC SULFATE 220 MG CAPSULE GT SCH (08:13)
[2016-07-14] MEDS: PANTOPRAZOLE 40 MG/PACK PACK GT SCH (08:13)
[2016-07-14] MEDS: TRAMADOL HCL 50 MG TABLET GT SCH ×2 (08:13→21:37)
[2016-07-14] MEDS: CARVEDILOL 3.125 MG TABLET GT SCH (08:24)
[2016-07-14] MEDS: HYDROGEL DRESSING 90 GM TUBE TP SCH (08:27)
[2016-07-14] MEDS: Z GUARD REMEDY 2 OZ OINT TP SCH ×2 (08:27→18:20)
[2016-07-14] MEDS: APIXABAN 2.5 MG TABLET GT SCH (08:30)
[2016-07-14] MEDS ORDERED: IV NS 0.9% 2,000 ML ONE (08:38)
[2016-07-14] MEDS: LORAZEPAM 0.5 MG TABLET PO PRN (15:32)
[2016-07-14] MEDS ORDERED: CARVEDILOL 12.5 MG TABLET GT ONE (16:30)
[2016-07-14] MEDS ORDERED: APIXABAN 2.5 MG TABLET GT SCH (17:00)
[2016-07-14] MEDS ORDERED: CARVEDILOL 12.5 MG TABLET GT SCH (21:00)
[2016-07-15 00:13] VITALS: BP 91/42
[2016-07-15] MEDS: MIDODRINE HCL (5MG) 5 MG TABLET GT PRN (00:13)
== END 2016-07-15 00:55 | DRG 194 ==
LOC: ER 18:05 → EDBD 20:24 → TELE 20:24 → TELE1 21:14 → TELE-TD 07-07 17:56 → TELE1 07-09 10:21
PROVIDERS: ADMIT Internal Medicine; ATTEND Internal Medicine
PROC: 5A1955Z Respiratory Ventilation, Greater than 96 Consecutive Hours (ICD-10-PCS; principal; 2016-06-30)
PROC: 5A1D60Z (ICD-10-PCS; 2016-07-01)
PROC: 30233N1 Transfusion of Nonautologous Red Blood Cells into Peripheral Vein, Percutaneous Approach (ICD-10-PCS; 2016-07-01)
PROC: 0W9G3ZZ Drainage of Peritoneal Cavity, Percutaneous Approach (ICD-10-PCS; 2016-07-01)
PROC: 0W9B3ZZ Drainage of Left Pleural Cavity, Percutaneous Approach (ICD-10-PCS; 2016-07-07)
PROC: 0W993ZZ Drainage of Right Pleural Cavity, Percutaneous Approach (ICD-10-PCS; 2016-07-09)
PROC: 0W9G3ZZ Drainage of Peritoneal Cavity, Percutaneous Approach (ICD-10-PCS; 2016-07-12)
DX: I13.2 Hypertensive heart and chronic kidney disease with heart failure and with stage 5 chronic kidney disease, or end stage renal disease (principal); J90 Pleural effusion, not elsewhere classified; G93.40 Encephalopathy, unspecified; Z99.11 Dependence on respirator [ventilator] status; L89.154 Pressure ulcer of sacral region, stage 4; E46 Unspecified protein-calorie malnutrition; J96.11 Chronic respiratory failure with hypoxia; I95.9 Hypotension, unspecified; N18.6 End stage renal disease; Z93.0 Tracheostomy status; R18.8 Other ascites; I27.2 Other secondary pulmonary hypertension; E11.22 Type 2 diabetes mellitus with diabetic chronic kidney disease; I50.9 Heart failure, unspecified; D64.9 Anemia, unspecified; Z99.2 Dependence on renal dialysis; I25.10 Atherosclerotic heart disease of native coronary artery without angina pectoris; Z86.73 Personal history of transient ischemic attack (TIA), and cerebral infarction without residual deficits; K21.9 Gastro-esophageal reflux disease without esophagitis; I48.2 Chronic atrial fibrillation; L98.9 Disorder of the skin and subcutaneous tissue, unspecified; S40.022A Contusion of left upper arm, initial encounter; S40.021A Contusion of right upper arm, initial encounter; X58.XXXA Exposure to other specified factors, initial encounter; Y93.9 Activity, unspecified; Y92.89 Other specified places as the place of occurrence of the external cause; Y99.9 Unspecified external cause status; Z93.1 Gastrostomy status; I34.0 Nonrheumatic mitral (valve) insufficiency; I36.1 Nonrheumatic tricuspid (valve) insufficiency; Z68.23 Body mass index [BMI] 23.0-23.9, adult; J98.11 Atelectasis; G40.909 Epilepsy, unspecified, not intractable, without status epilepticus; Z88.0 Allergy status to penicillin; Z88.2 Allergy status to sulfonamides; J44.9 Chronic obstructive pulmonary disease, unspecified; I50.33 Acute on chronic diastolic (congestive) heart failure
CPT/HCPCS: 31720; 36415; 71010-TC; 71250-TC; 76942-TC; 80048-TC; 80076-TC; 82962-TC; 83690-TC; 83735-TC; 84100-TC; 85025-TC; 85610-TC; 85730-TC; 86850-TC; 86921-TC; 87081-TC; 87116; 87206; 90935-TC; 93307-TC; 94003-TC; 94760-TC; A4216; A4606; A4623; A6248; A6253; A6402; A6403; J0885; J1953; J2270; J2405; J7030; J7050; J8597; P9016-BL; P9047; Z7610

== ENCOUNTER 2016-07-29 17:51 | Inpatient (IN) | payer OTHER, MEDICARE ==
[~2016-07-29] VITALS: Ht 165.1 cm; Wt 86.2 kg
[~2016-07-29 17:51] MED LIST: ACET160L15 GT; ALBU2.5V38 NEB; AMIN30LI2 GT; APIX2.5T GT; BISA10SU8 RC; DOCU100T2 GT; FOLI0.8T2 GT; IPRA0.2S9 IH; LACT10SO6 GT; LANS30CA56 GT; LEVE100S GT; MIDO5TAB GT; MIRT7.5T10 GT; SILD20TA2 GT; TRAM50TA2 GT; ZINC220T GT
[2016-07-29 18:14] VITALS: BP 119/73
[2016-07-29 18:39] LABS: BASOPHILS # (AUTO) 0.4 /CMM (0.0-0.2); BASOPHILS % (AUTO) 2.5 % (0.0-2.0); DIFF TOTAL % 100 %; EOSINOPHILS # (AUTO) 0.1 /CMM (0.0-0.7); EOSINOPHILS % (AUTO) 0.4 % (0.0-6.0); HEMATOCRIT 24 % (33-45); HEMOGLOBIN 7.5 g/dL (11.5-14.8); LYMPHOCYTES # (AUTO) 1.6 /CMM (0.8-4.8); LYMPHOCYTES % (AUTO) 10.2 % (20.0-44.0); MEAN CORPUSCULAR HEMOGLOBIN 32 PG (26.0-33.0); MEAN CORPUSCULAR HGB CONC 32 g/dl (31.0-36.0); MEAN CORPUSCULAR VOLUME 99 fL (82-100); MONOCYTES # (AUTO) 1.1 /CMM (0.1-1.30); NEUTROPHILS # (AUTO) 12.7 /CMM (1.8-8.9); NEUTROPHILS % (AUTO) 79.9 % (43.0-81.0); PLATELET COUNT (AUTO) 286 /CMM (150-450); RED BLOOD CELL COUNT(AUTO) 2.37 MIL/uL (4.0-5.2); WHITE BLOOD COUNT (AUTO) 15.9 K/uL (4.3-11.0)
[2016-07-29 18:52] LABS: INR 1.2 (0.87-1.13); PROTHROMBIN TIME 12.6 SECS (9.5-12.7)
[2016-07-29 18:54] LABS: ALBUMIN 2.3 g/dL (3.4-5.0); BILIRUBIN,DIRECT 0.1 mg/dL (0.0-0.2); BILIRUBIN,TOTAL 0.4 mg/dL (0.2-1.0); CALCIUM, SERUM 9.1 mg/dL (8.5-10.1); CREATININE 1.6 mg/dL (0.6-1.3); INDIRECT BILIRUBIN 0.3 mg/dL (0.0-1.1); POTASSIUM 4.2 mmol/L (3.5-5.1); TOTAL PROTEIN, SERUM 7.3 g/dL (6.4-8.2)
[2016-07-29] MEDS ORDERED: HALOPERIDOL LACTATE INJ 5 MG/ML VIAL ONE (18:56)
[2016-07-29 18:58] LABS: LACTIC ACID 0.6 mmol/L (0.4-2.0)
[2016-07-29] MEDS ORDERED: METO5SOL GT (19:06)
[2016-07-29] MEDS ORDERED: AMIN30LI4 GT (19:06)
[2016-07-29] MEDS ORDERED: IPRA0.2S9 IH (19:06)
[2016-07-29] MEDS ORDERED: DOCU-270 PO (19:06)
[2016-07-29] MEDS ORDERED: ACET650S26 GT ×2 (19:06)
[2016-07-29] MEDS ORDERED: NUTR100037 GT (19:06)
[2016-07-29] MEDS ORDERED: ALBU2.5V13 IH ×2 (19:06)
[2016-07-29] MEDS ORDERED: MIDO5TAB PO (19:06)
[2016-07-29] MEDS ORDERED: LACT10SO7 GT (19:06)
[2016-07-29] MEDS ORDERED: METO25TA6 GT (19:06)
[2016-07-29] MEDS ORDERED: ONDA4TAB5 GT (19:06)
[2016-07-29 19:59] VITALS: BP 121/88
[2016-07-29] MEDS ORDERED: HALOPERIDOL LACTATE INJ 5 MG/ML VIAL IM ONE (20:00)
[2016-07-29] MEDS ORDERED: LEVOFLOXACIN 750 MG /D5W 150ML 150 ML IV ONE ×2 (20:59→21:00)
[2016-07-29] MEDS ORDERED: IV NS 0.9% 500 ML IV ONE (20:59)
[2016-07-29] MEDS ORDERED: IV SET PRIMARY 1 EA INFUS.SET MC ONE (20:59)
[2016-07-29] MEDS ORDERED: METRONIDAZOLE 500MG/ NS 100ML 100 ML IV ONE ×2 (21:00)
[2016-07-29] MEDS ORDERED: IV SET PRIMARY PUMP SET 1 EA INFUS.SET MC ONE ×2 (21:00→21:57)
[2016-07-29] MEDS ORDERED: IV NS 0.9% 500 ML BAG IV ONE (21:00)
[2016-07-29] MEDS ORDERED: SECONDARY IV SET 1 EA INFUS.SET MC ONE (21:57)
[2016-07-29] MEDS ORDERED: IV NS 0.9% 250 ML IV ONE (22:01)
[2016-07-29] MEDS ORDERED: BLOOD IV SET 1 EA INFUS.SET MC ONE (22:01)
[2016-07-30] VITALS (10 sets, daily range): BP systolic 72–125; BP diastolic 32–56
[2016-07-30 07:14] LABS: BASOPHILS % (AUTO) 0.3 % (0.0-2.0); DIFF TOTAL % 100 %; EOSINOPHILS % (AUTO) 0.3 % (0.0-6.0); HEMATOCRIT 21 % (33-45); LYMPHOCYTES % (AUTO) 11.3 % (20.0-44.0); MEAN CORPUSCULAR HEMOGLOBIN 31 PG (26.0-33.0); MEAN CORPUSCULAR HGB CONC 32 g/dl (31.0-36.0); MEAN CORPUSCULAR VOLUME 99 fL (82-100); MONOCYTES # (AUTO) 0.6 /CMM (0.1-1.30); NEUTROPHILS # (AUTO) 7.2 /CMM (1.8-8.9); NEUTROPHILS % (AUTO) 81.1 % (43.0-81.0); PLATELET COUNT (AUTO) 235 /CMM (150-450); RED BLOOD CELL COUNT(AUTO) 2.16 MIL/uL (4.0-5.2); WHITE BLOOD COUNT (AUTO) 8.9 K/uL (4.3-11.0)
[2016-07-30 07:20] LABS: CALCIUM, SERUM 9.4 mg/dL (8.5-10.1); CREATININE 1.7 mg/dL (0.6-1.3); POTASSIUM 4.2 mmol/L (3.5-5.1)
[2016-07-30 07:29] LABS: HEMOGLOBIN 6.8 g/dL (11.5-14.8)
[2016-07-30] MEDS ORDERED: ACETAMINOPHEN 650 MG/20.3 ML UDC GT PRN (09:00)
[2016-07-30] MEDS ORDERED: IPRATROPIUM NEB FS 0.5 MG/2.5 ML AMPUL.NEB IH PRN (09:00)
[2016-07-30] MEDS: TRAMADOL HCL 50 MG TABLET GT SCH ×2 (09:00→20:50)
[2016-07-30] MEDS: APIXABAN 2.5 MG TABLET GT SCH ×2 (09:00→17:00)
[2016-07-30] MEDS ORDERED: ONDANSETRON HCL 4 MG/5 ML SOLUTION GT PRN (09:00)
[2016-07-30] MEDS ORDERED: LACTULOSE 10 G/15 ML UDC (PYXIS) GT PRN (09:00)
[2016-07-30 09:53] LABS: ANISOCYTOSIS 1+; HYPOCHROMASIA 1+; LYMPHOCYTES % (MANUAL) 10 % (16-48); PLATELET ESTIMATE ADEQUATE
[2016-07-30] MEDS: RENAL NOVASOURCE 1,000 ML BOTTLE GT PRN (11:07)
[2016-07-30] MEDS: METOCLOPRAMIDE HCL 10 MG/10 ML UDC GT SCH ×3 (11:08→20:49)
[2016-07-30] MEDS: PROSOURCE / PROSTAT (PYXIS) 30 ML UDC GT SCH (11:08)
[2016-07-30] MEDS: LEVETIRACETAM SOL (5 ML) 100 MG/ML UDC GT SCH ×2 (11:08→20:49)
[2016-07-30] MEDS: VIT B CMPLX 3/FA/VIT C/BIOTIN 1 TAB TABLET GT SCH (11:08)
[2016-07-30] MEDS: DOCUSATE SODIUM 100 MG CAPSULE PO SCH ×2 (11:08→17:50)
[2016-07-30] MEDS: ZINC SULFATE 220 MG CAPSULE GT SCH (11:08)
[2016-07-30] MEDS: ACETAMINOPHEN 650 MG/20.3 ML UDC GT SCH ×2 (11:09→20:49)
[2016-07-30] MEDS: SILDENAFIL CITRATE 20 MG TABLET GT SCH ×3 (11:09→17:50)
[2016-07-30] MEDS: PANTOPRAZOLE 40 MG/PACK PACK GT SCH (11:09)
[2016-07-30] MEDS: METOPROLOL TARTRATE 25 MG TABLET GT SCH ×2 (11:41→20:53)
[2016-07-30] MEDS: IPRATROPIUM NEB FS 0.5 MG/2.5 ML AMPUL.NEB IH SCH ×2 (13:30→20:04)
[2016-07-30] MEDS: ALBUTEROL FS 2.5 MG/3 ML VIAL.NEB NEB SCH ×2 (13:30→20:04)
[2016-07-30] MEDS ORDERED: ALBUTEROL FS 2.5 MG/3 ML VIAL.NEB NEB PRN (13:30)
[2016-07-30] MEDS: Z GUARD REMEDY 2 OZ OINT TP PRN (14:07)
[2016-07-30] MEDS: HYDROGEL DRESSING 90 GM TUBE TP SCH (14:09)
[2016-07-30] MEDS: HYDROGEL DRESSING 90 GM TUBE TP PRN (14:09)
[2016-07-30] MEDS: MIDODRINE HCL (5MG) 5 MG TABLET PO SCH ×2 (14:10→20:53)
[2016-07-30] MEDS: Z GUARD REMEDY 2 OZ OINT TP SCH (14:10)
[2016-07-30] MEDS ORDERED: BLOOD IV SET 1 EA INFUS.SET MC ONE (15:25)
[2016-07-30] MEDS ORDERED: IV NS 0.9% 500 ML IV ONE (15:26)
[2016-07-30] MEDS ORDERED: SECONDARY IV SET 1 EA INFUS.SET MC ONE (16:20)
[2016-07-30] MEDS ORDERED: ALBUMIN 25% 25 GM in PREMIX 1 EA IV PRN (16:30)
[2016-07-31] VITALS (8 sets, daily range): BP systolic 70–127; BP diastolic 37–55
[2016-07-31] MEDS: IPRATROPIUM NEB FS 0.5 MG/2.5 ML AMPUL.NEB IH SCH ×4 (02:08→19:37)
[2016-07-31] MEDS: ALBUTEROL FS 2.5 MG/3 ML VIAL.NEB NEB SCH ×4 (02:08→19:37)
[2016-07-31] MEDS: METOCLOPRAMIDE HCL 10 MG/10 ML UDC GT SCH ×4 (03:02→21:51)
[2016-07-31] MEDS: MIDODRINE HCL (5MG) 5 MG TABLET PO SCH ×3 (04:17→21:55)
[2016-07-31] MEDS: PANTOPRAZOLE 40 MG/PACK PACK GT SCH (05:37)
[2016-07-31 08:07] LABS: BASOPHILS % (AUTO) 0.4 % (0.0-2.0); DIFF TOTAL % 100 %; EOSINOPHILS # (AUTO) 0.1 /CMM (0.0-0.7); EOSINOPHILS % (AUTO) 0.4 % (0.0-6.0); HEMATOCRIT 26 % (33-45); HEMOGLOBIN 8.1 g/dL (11.5-14.8); LYMPHOCYTES # (AUTO) 2.7 /CMM (0.8-4.8); MEAN CORPUSCULAR HEMOGLOBIN 30 PG (26.0-33.0); MEAN CORPUSCULAR HGB CONC 31 g/dl (31.0-36.0); MEAN CORPUSCULAR VOLUME 96 fL (82-100); MONOCYTES # (AUTO) 0.8 /CMM (0.1-1.30); MONOCYTES % (AUTO) 6.7 % (2.0-12.0); NEUTROPHILS # (AUTO) 8.7 /CMM (1.8-8.9); NEUTROPHILS % (AUTO) 70.5 % (43.0-81.0); PLATELET COUNT (AUTO) 269 /CMM (150-450); RED BLOOD CELL COUNT(AUTO) 2.67 MIL/uL (4.0-5.2); WHITE BLOOD COUNT (AUTO) 12.3 K/uL (4.3-11.0)
[2016-07-31 08:13] LABS: CALCIUM, SERUM 8.9 mg/dL (8.5-10.1); CREATININE 1.5 mg/dL (0.6-1.3); POTASSIUM 3.9 mmol/L (3.5-5.1)
[2016-07-31 08:18] LABS: INR 1.21 (0.87-1.13); PROTHROMBIN TIME 13.1 SECS (9.5-12.7)
[2016-07-31 08:24] LABS: ABG BASE EXCESS 0.6 mmol/L; ABG HCO3 27.9 mmol/L; ABG PH 7.278 (7.350-7.450); ABG PO2 69.4 mmHg (75.0-100.0); ABG TOTAL HEMOGLOBIN 8.5 G/dL (12.0-16.0); ALLEN TEST Pass; AaDO2 72.8 mmHg; O2Hb 89.8 % (94.0-97.0)
[2016-07-31] MEDS: LEVETIRACETAM SOL (5 ML) 100 MG/ML UDC GT SCH ×2 (08:39→21:53)
[2016-07-31] MEDS: METOPROLOL TARTRATE 25 MG TABLET GT SCH ×2 (08:40→21:00)
[2016-07-31] MEDS: DOCUSATE SODIUM 100 MG CAPSULE PO SCH ×2 (08:40→16:16)
[2016-07-31] MEDS: ZINC SULFATE 220 MG CAPSULE GT SCH (08:40)
[2016-07-31] MEDS: SILDENAFIL CITRATE 20 MG TABLET GT SCH ×3 (08:40→16:16)
[2016-07-31] MEDS: ACETAMINOPHEN 650 MG/20.3 ML UDC GT SCH ×2 (08:41→21:52)
[2016-07-31] MEDS: APIXABAN 2.5 MG TABLET GT SCH ×2 (08:41→16:16)
[2016-07-31] MEDS: VIT B CMPLX 3/FA/VIT C/BIOTIN 1 TAB TABLET GT SCH (08:41)
[2016-07-31] MEDS: PROSOURCE / PROSTAT (PYXIS) 30 ML UDC GT SCH (08:41)
[2016-07-31] MEDS: HYDROGEL DRESSING 90 GM TUBE TP SCH (08:43)
[2016-07-31] MEDS: TRAMADOL HCL 50 MG TABLET GT SCH ×2 (08:43→21:52)
[2016-07-31] MEDS: Z GUARD REMEDY 2 OZ OINT TP SCH (08:43)
[2016-07-31] MEDS ORDERED: IV SET PRIMARY PUMP SET 1 EA INFUS.SET MC ONE ×2 (11:49→18:26)
[2016-07-31] MEDS ORDERED: IV NS 0.9% 500 ML IV ONE (12:00)
[2016-07-31] MEDS: MIDODRINE HCL (5MG) 5 MG TABLET GT SCH (16:16)
[2016-07-31 16:39] LABS: ABG BASE EXCESS 1.1 mmol/L; ABG PCO2 36.1 mmHg (35.0-45.0); ABG PH 7.458 (7.350-7.450); ABG PO2 91.6 mmHg (75.0-100.0); ABG TOTAL HEMOGLOBIN 7.8 G/dL (12.0-16.0); ALLEN TEST Pass; O2Hb 94.7 % (94.0-97.0)
[2016-07-31] MEDS ORDERED: ALBUMIN 25% 12.5 GM in PREMIX 1 EA IV PRN (18:00)
[2016-07-31] MEDS ORDERED: SECONDARY IV SET 1 EA INFUS.SET MC ONE (18:16)
[2016-07-31] MEDS ORDERED: ALBUMIN 25% 25 GM in PREMIX 1 EA IV ONE (18:30)
[2016-07-31] MEDS: RENAL NOVASOURCE 1,000 ML BOTTLE GT PRN (20:52)
[2016-08-01] VITALS: BP 94/49
[2016-08-01] MEDS: ALBUTEROL FS 2.5 MG/3 ML VIAL.NEB NEB SCH ×4 (01:08→20:24)
[2016-08-01] MEDS: IPRATROPIUM NEB FS 0.5 MG/2.5 ML AMPUL.NEB IH SCH ×4 (01:09→20:24)
[2016-08-01] MEDS: METOCLOPRAMIDE HCL 10 MG/10 ML UDC GT SCH ×4 (03:59→21:05)
[2016-08-01 04:00] VITALS: BP 97/48
[2016-08-01] MEDS: MIDODRINE HCL (5MG) 5 MG TABLET PO SCH ×3 (04:09→21:07)
[2016-08-01] MEDS: PANTOPRAZOLE 40 MG/PACK PACK GT SCH (05:48)
[2016-08-01 08:00] VITALS: BP 111/48
[2016-08-01 08:01] LABS: BASOPHILS % (AUTO) 0.4 % (0.0-2.0); DIFF TOTAL % 100 %; EOSINOPHILS # (AUTO) 0.1 /CMM (0.0-0.7); EOSINOPHILS % (AUTO) 0.7 % (0.0-6.0); HEMATOCRIT 23 % (33-45); HEMOGLOBIN 7.4 g/dL (11.5-14.8); LYMPHOCYTES # (AUTO) 1.2 /CMM (0.8-4.8); LYMPHOCYTES % (AUTO) 15.2 % (20.0-44.0); MEAN CORPUSCULAR HEMOGLOBIN 31 PG (26.0-33.0); MEAN CORPUSCULAR HGB CONC 32 g/dl (31.0-36.0); MEAN CORPUSCULAR VOLUME 95 fL (82-100); MONOCYTES # (AUTO) 0.6 /CMM (0.1-1.30); MONOCYTES % (AUTO) 7.8 % (2.0-12.0); NEUTROPHILS # (AUTO) 6.2 /CMM (1.8-8.9); NEUTROPHILS % (AUTO) 75.9 % (43.0-81.0); PLATELET COUNT (AUTO) 223 /CMM (150-450); RED BLOOD CELL COUNT(AUTO) 2.44 MIL/uL (4.0-5.2); WHITE BLOOD COUNT (AUTO) 8.2 K/uL (4.3-11.0)
[2016-08-01 08:16] LABS: CALCIUM, SERUM 8.4 mg/dL (8.5-10.1); CREATININE 1.9 mg/dL (0.6-1.3); PHOSPHORUS 1.8 mg/dL (2.5-4.9); POTASSIUM 3.5 mmol/L (3.5-5.1)
[2016-08-01 08:39] LABS: IRON, SERUM 34 ug/dl (50-175); PERCENT SATURATION 24 % (14-33); TOTAL IRON BINDING CAPACITY 140 ug/dl (250-450)
[2016-08-01] MEDS: TRAMADOL HCL 50 MG TABLET GT SCH ×2 (08:54→21:00)
[2016-08-01] MEDS: SILDENAFIL CITRATE 20 MG TABLET GT SCH ×3 (08:54→16:33)
[2016-08-01] MEDS: ZINC SULFATE 220 MG CAPSULE GT SCH (08:54)
[2016-08-01] MEDS: VIT B CMPLX 3/FA/VIT C/BIOTIN 1 TAB TABLET GT SCH (08:56)
[2016-08-01] MEDS: LEVETIRACETAM SOL (5 ML) 100 MG/ML UDC GT SCH ×2 (08:56→21:05)
[2016-08-01] MEDS: PROSOURCE / PROSTAT (PYXIS) 30 ML UDC GT SCH (08:56)
[2016-08-01] MEDS: METOPROLOL TARTRATE 25 MG TABLET GT SCH (08:56)
[2016-08-01] MEDS: DOCUSATE SODIUM 100 MG CAPSULE PO SCH ×2 (08:56→16:33)
[2016-08-01] MEDS: ACETAMINOPHEN 650 MG/20.3 ML UDC GT SCH ×2 (08:56→21:05)
[2016-08-01] MEDS: Z GUARD REMEDY 2 OZ OINT TP SCH (09:00)
[2016-08-01] MEDS: HYDROGEL DRESSING 90 GM TUBE TP SCH (09:00)
[2016-08-01] MEDS: APIXABAN 2.5 MG TABLET GT SCH ×2 (09:02→16:36)
[2016-08-01 12:00] VITALS: BP 92/48
[2016-08-01] MEDS ORDERED: Sodium Phosphate 15 MMOL in IV D5W 250 ML IV ONE (12:30)
[2016-08-01] MEDS ORDERED: SECONDARY IV SET 1 EA INFUS.SET MC ONE ×2 (14:06→14:29)
[2016-08-01] MEDS ORDERED: IV SET PRIMARY PUMP SET 1 EA INFUS.SET MC ONE (14:18)
[2016-08-01] MEDS ORDERED: IV NS 0.9% 250 ML IV ONE (14:19)
[2016-08-01] MEDS: Magnesium 1GM/D5W 100ML PREMIX 100 ML IV SCH ×2 (14:23→15:21)
[2016-08-01 16:00] VITALS: BP 89/48
[2016-08-01] MEDS: DILTIAZEM HCL 30 MG TABLET PO SCH (18:00)
[2016-08-01 20:00] VITALS: BP 88/46
[2016-08-01] MEDS: RENAL NOVASOURCE 1,000 ML BOTTLE GT PRN (23:05)
[2016-08-02] VITALS (7 sets, daily range): BP systolic 77–118; BP diastolic 32–46
[2016-08-02] MEDS: DILTIAZEM HCL 30 MG TABLET PO SCH ×4 (01:41→17:55)
[2016-08-02] MEDS: ALBUTEROL FS 2.5 MG/3 ML VIAL.NEB NEB SCH ×4 (01:59→19:58)
[2016-08-02] MEDS: IPRATROPIUM NEB FS 0.5 MG/2.5 ML AMPUL.NEB IH SCH ×4 (01:59→19:57)
[2016-08-02] MEDS: METOCLOPRAMIDE HCL 10 MG/10 ML UDC GT SCH ×4 (04:52→21:08)
[2016-08-02] MEDS: MIDODRINE HCL (5MG) 5 MG TABLET PO SCH ×3 (04:53→21:09)
[2016-08-02] MEDS: PANTOPRAZOLE 40 MG/PACK PACK GT SCH (05:32)
[2016-08-02 07:16] LABS: BASOPHILS % (AUTO) 0.5 % (0.0-2.0); DIFF TOTAL % 100 %; EOSINOPHILS # (AUTO) 0.1 /CMM (0.0-0.7); EOSINOPHILS % (AUTO) 0.6 % (0.0-6.0); HEMATOCRIT 25 % (33-45); LYMPHOCYTES # (AUTO) 1.7 /CMM (0.8-4.8); LYMPHOCYTES % (AUTO) 17.5 % (20.0-44.0); MEAN CORPUSCULAR HEMOGLOBIN 30 PG (26.0-33.0); MEAN CORPUSCULAR HGB CONC 32 g/dl (31.0-36.0); MEAN CORPUSCULAR VOLUME 95 fL (82-100); MONOCYTES # (AUTO) 0.8 /CMM (0.1-1.30); MONOCYTES % (AUTO) 8.6 % (2.0-12.0); NEUTROPHILS % (AUTO) 72.8 % (43.0-81.0); PLATELET COUNT (AUTO) 238 /CMM (150-450); RED BLOOD CELL COUNT(AUTO) 2.65 MIL/uL (4.0-5.2); WHITE BLOOD COUNT (AUTO) 9.6 K/uL (4.3-11.0)
[2016-08-02 07:37] LABS: CALCIUM, SERUM 8.1 mg/dL (8.5-10.1); CREATININE 1.7 mg/dL (0.6-1.3); PHOSPHORUS 2.1 mg/dL (2.5-4.9); POTASSIUM 3.1 mmol/L (3.5-5.1)
[2016-08-02] MEDS: PROSOURCE / PROSTAT (PYXIS) 30 ML UDC GT SCH (09:21)
[2016-08-02] MEDS: ACETAMINOPHEN 650 MG/20.3 ML UDC GT SCH ×2 (09:21→21:08)
[2016-08-02] MEDS: VIT B CMPLX 3/FA/VIT C/BIOTIN 1 TAB TABLET GT SCH (09:21)
[2016-08-02] MEDS: LEVETIRACETAM SOL (5 ML) 100 MG/ML UDC GT SCH ×2 (09:21→21:08)
[2016-08-02] MEDS: ZINC SULFATE 220 MG CAPSULE GT SCH (09:21)
[2016-08-02] MEDS: DOCUSATE SODIUM 100 MG CAPSULE PO SCH ×2 (09:22→17:00)
[2016-08-02] MEDS: SILDENAFIL CITRATE 20 MG TABLET GT SCH ×3 (09:22→17:52)
[2016-08-02] MEDS: TRAMADOL HCL 50 MG TABLET GT SCH ×2 (09:22→21:00)
[2016-08-02] MEDS: APIXABAN 2.5 MG TABLET GT SCH ×2 (09:23→17:54)
[2016-08-02] MEDS: Z GUARD REMEDY 2 OZ OINT TP PRN ×2 (09:24→10:35)
[2016-08-02] MEDS: HYDROGEL DRESSING 90 GM TUBE TP SCH (10:35)
[2016-08-02] MEDS: Z GUARD REMEDY 2 OZ OINT TP SCH (10:36)
[2016-08-03] VITALS (7 sets, daily range): BP systolic 80–107; BP diastolic 23–57
[2016-08-03] MEDS: MIDODRINE HCL (5MG) 5 MG TABLET GT SCH (01:05)
[2016-08-03] MEDS: ALBUTEROL FS 2.5 MG/3 ML VIAL.NEB NEB SCH ×4 (01:32→19:54)
[2016-08-03] MEDS: IPRATROPIUM NEB FS 0.5 MG/2.5 ML AMPUL.NEB IH SCH ×4 (01:32→19:55)
[2016-08-03] MEDS: MIDODRINE HCL (5MG) 5 MG TABLET PO SCH ×3 (05:57→22:23)
[2016-08-03] MEDS: METOCLOPRAMIDE HCL 10 MG/10 ML UDC GT SCH ×4 (05:57→22:23)
[2016-08-03] MEDS: DILTIAZEM HCL 30 MG TABLET PO SCH ×4 (05:57→17:30)
[2016-08-03] MEDS: PANTOPRAZOLE 40 MG/PACK PACK GT SCH (05:57)
[2016-08-03 07:41] LABS: BASOPHILS # (AUTO) 0.1 /CMM (0.0-0.2); DIFF TOTAL % 100 %; EOSINOPHILS % (AUTO) 0.4 % (0.0-6.0); HEMATOCRIT 23 % (33-45); HEMOGLOBIN 7.5 g/dL (11.5-14.8); LYMPHOCYTES # (AUTO) 1.4 /CMM (0.8-4.8); LYMPHOCYTES % (AUTO) 16.6 % (20.0-44.0); MEAN CORPUSCULAR HEMOGLOBIN 31 PG (26.0-33.0); MEAN CORPUSCULAR HGB CONC 33 g/dl (31.0-36.0); MEAN CORPUSCULAR VOLUME 94 fL (82-100); MONOCYTES # (AUTO) 0.7 /CMM (0.1-1.30); MONOCYTES % (AUTO) 8.1 % (2.0-12.0); NEUTROPHILS # (AUTO) 6.3 /CMM (1.8-8.9); NEUTROPHILS % (AUTO) 73.9 % (43.0-81.0); PLATELET COUNT (AUTO) 238 /CMM (150-450); WHITE BLOOD COUNT (AUTO) 8.6 K/uL (4.3-11.0)
[2016-08-03 07:56] LABS: CALCIUM, SERUM 8.2 mg/dL (8.5-10.1); PHOSPHORUS 2.6 mg/dL (2.5-4.9)
[2016-08-03] MEDS: LEVETIRACETAM SOL (5 ML) 100 MG/ML UDC GT SCH ×2 (08:22→22:23)
[2016-08-03] MEDS: ACETAMINOPHEN 650 MG/20.3 ML UDC GT SCH ×2 (08:22→22:22)
[2016-08-03] MEDS: PROSOURCE / PROSTAT (PYXIS) 30 ML UDC GT SCH (08:22)
[2016-08-03] MEDS: RENAL NOVASOURCE 1,000 ML BOTTLE GT PRN ×2 (08:22→22:39)
[2016-08-03] MEDS: TRAMADOL HCL 50 MG TABLET GT SCH (08:23)
[2016-08-03] MEDS: ZINC SULFATE 220 MG CAPSULE GT SCH (08:23)
[2016-08-03] MEDS: APIXABAN 2.5 MG TABLET GT SCH ×2 (08:23→17:22)
[2016-08-03] MEDS: SILDENAFIL CITRATE 20 MG TABLET GT SCH ×3 (08:23→17:00)
[2016-08-03] MEDS: VIT B CMPLX 3/FA/VIT C/BIOTIN 1 TAB TABLET GT SCH (08:23)
[2016-08-03] MEDS: DOCUSATE SODIUM 100 MG CAPSULE PO SCH ×2 (08:24→17:00)
[2016-08-03] MEDS: ASCORBIC ACID 500 MG TABLET PO SCH (08:24)
[2016-08-03 08:25] LABS: BILIRUBIN,TOTAL 0.4 mg/dL (0.2-1.0)
[2016-08-03] MEDS: Z GUARD REMEDY 2 OZ OINT TP SCH (08:25)
[2016-08-03] MEDS: HYDROGEL DRESSING 90 GM TUBE TP PRN ×2 (08:25→09:51)
[2016-08-03] MEDS: HYDROGEL DRESSING 90 GM TUBE TP SCH (09:54)
[2016-08-03] MEDS ORDERED: IV NS 0.9% 250 ML IV ONE (11:57)
[2016-08-03] MEDS ORDERED: BLOOD IV SET 1 EA INFUS.SET MC ONE (11:58)
[2016-08-04] VITALS (7 sets, daily range): BP systolic 83–126; BP diastolic 35–53
[2016-08-04] MEDS: DILTIAZEM HCL 30 MG TABLET PO SCH ×4 (01:05→18:22)
[2016-08-04] MEDS: IPRATROPIUM NEB FS 0.5 MG/2.5 ML AMPUL.NEB IH SCH ×4 (01:23→19:47)
[2016-08-04] MEDS: ALBUTEROL FS 2.5 MG/3 ML VIAL.NEB NEB SCH ×4 (01:23→19:47)
[2016-08-04] MEDS: METOCLOPRAMIDE HCL 10 MG/10 ML UDC GT SCH ×4 (03:52→20:50)
[2016-08-04] MEDS: PANTOPRAZOLE 40 MG/PACK PACK GT SCH (06:09)
[2016-08-04] MEDS: MIDODRINE HCL (5MG) 5 MG TABLET PO SCH ×3 (06:10→20:51)
[2016-08-04 07:24] LABS: BASOPHILS % (AUTO) 0.4 % (0.0-2.0); DIFF TOTAL % 100 %; EOSINOPHILS % (AUTO) 0.1 % (0.0-6.0); HEMATOCRIT 26 % (33-45); HEMOGLOBIN 8.5 g/dL (11.5-14.8); LYMPHOCYTES # (AUTO) 0.9 /CMM (0.8-4.8); LYMPHOCYTES % (AUTO) 10.6 % (20.0-44.0); MEAN CORPUSCULAR HEMOGLOBIN 31 PG (26.0-33.0); MEAN CORPUSCULAR HGB CONC 33 g/dl (31.0-36.0); MEAN CORPUSCULAR VOLUME 96 fL (82-100); MONOCYTES # (AUTO) 0.8 /CMM (0.1-1.30); MONOCYTES % (AUTO) 8.5 % (2.0-12.0); NEUTROPHILS # (AUTO) 7.1 /CMM (1.8-8.9); NEUTROPHILS % (AUTO) 80.4 % (43.0-81.0); PLATELET COUNT (AUTO) 209 /CMM (150-450); RED BLOOD CELL COUNT(AUTO) 2.74 MIL/uL (4.0-5.2); WHITE BLOOD COUNT (AUTO) 8.8 K/uL (4.3-11.0)
[2016-08-04 07:45] LABS: ALBUMIN 2.1 g/dL (3.4-5.0); BILIRUBIN,TOTAL 0.3 mg/dL (0.2-1.0); CALCIUM, SERUM 8.1 mg/dL (8.5-10.1); CREATININE 1.6 mg/dL (0.6-1.3); PHOSPHORUS 2.4 mg/dL (2.5-4.9); POTASSIUM 3.4 mmol/L (3.5-5.1); TOTAL PROTEIN, SERUM 6.2 g/dL (6.4-8.2)
[2016-08-04] MEDS: SILDENAFIL CITRATE 20 MG TABLET GT SCH ×3 (09:00→16:19)
[2016-08-04] MEDS: APIXABAN 2.5 MG TABLET GT SCH ×2 (09:00→16:24)
[2016-08-04] MEDS: HYDROGEL DRESSING 90 GM TUBE TP SCH (09:14)
[2016-08-04] MEDS: Z GUARD REMEDY 2 OZ OINT TP SCH (09:14)
[2016-08-04] MEDS: VIT B CMPLX 3/FA/VIT C/BIOTIN 1 TAB TABLET GT SCH (09:25)
[2016-08-04] MEDS: DOCUSATE SODIUM 100 MG CAPSULE PO SCH ×2 (09:25→16:19)
[2016-08-04] MEDS: LEVETIRACETAM SOL (5 ML) 100 MG/ML UDC GT SCH ×2 (09:25→20:51)
[2016-08-04] MEDS: ASCORBIC ACID 500 MG TABLET PO SCH (09:25)
[2016-08-04] MEDS: PROSOURCE / PROSTAT (PYXIS) 30 ML UDC GT SCH (09:25)
[2016-08-04] MEDS: ZINC SULFATE 220 MG CAPSULE GT SCH (09:25)
[2016-08-04] MEDS: ACETAMINOPHEN 650 MG/20.3 ML UDC GT SCH ×2 (09:25→20:51)
[2016-08-04] MEDS ORDERED: DILT30TA14 PO (14:55)
[2016-08-04] MEDS ORDERED: Gel Dressing TP (14:55)
[2016-08-04] MEDS ORDERED: ALLA266C2 TP (14:55)
[2016-08-04] MEDS ORDERED: ASCO500T9 PO (14:55)
[2016-08-04] MEDS ORDERED: IV NS 0.9% 250 ML IV ONE (16:30)
[2016-08-04] MEDS ORDERED: Sodium Phosphate 15 MMOL in IV D5W 250 ML IV ONE (18:00)
== END 2016-08-04 22:00 ==
LOC: ER 17:52 → TELE1 21:21
PROVIDERS: ADMIT Internal Medicine Nephrology; ATTEND Internal Medicine Nephrology
PROC: 5A1955Z Respiratory Ventilation, Greater than 96 Consecutive Hours (ICD-10-PCS; principal; 2016-07-30)
PROC: 5A1D60Z (ICD-10-PCS; principal; 2016-07-30)
PROC: 30233N1 Transfusion of Nonautologous Red Blood Cells into Peripheral Vein, Percutaneous Approach (ICD-10-PCS; principal; 2016-07-30)
PROC: 0W9G3ZZ Drainage of Peritoneal Cavity, Percutaneous Approach (ICD-10-PCS; principal; 2016-07-30)
DX: K74.60 Unspecified cirrhosis of liver (principal); J96.21 Acute and chronic respiratory failure with hypoxia; J90 Pleural effusion, not elsewhere classified; Z99.11 Dependence on respirator [ventilator] status; J96.10 Chronic respiratory failure, unspecified whether with hypoxia or hypercapnia; R18.8 Other ascites; Z93.0 Tracheostomy status; I95.9 Hypotension, unspecified; N18.6 End stage renal disease; I12.0 Hypertensive chronic kidney disease with stage 5 chronic kidney disease or end stage renal disease; K76.6 Portal hypertension; E11.22 Type 2 diabetes mellitus with diabetic chronic kidney disease; I48.91 Unspecified atrial fibrillation; E87.70 Fluid overload, unspecified; Z99.2 Dependence on renal dialysis; D64.9 Anemia, unspecified; E87.1 Hypo-osmolality and hyponatremia; I27.2 Other secondary pulmonary hypertension; K21.9 Gastro-esophageal reflux disease without esophagitis; M89.9 Disorder of bone, unspecified; Z86.73 Personal history of transient ischemic attack (TIA), and cerebral infarction without residual deficits
CPT/HCPCS: 31720; 36415; 36600; 71010-TC; 76942-TC; 80048-TC; 80053-TC; 80076-TC; 82140-TC; 82272-TC; 82728-TC; 83540-TC; 83605-TC; 83735-TC; 84100-TC; 85025-TC; 85610-TC; 85730-TC; 86850-TC; 86921-TC; 87040-TC; 87081-TC; 88305-TC; 88312-TC; 90935-TC; 94002-TC; 94003-TC; 94760-TC; A4216; A4606; A6248; A6253; A6402; A6403; A9563; J1630; J1953; J1956; J3475; J3490; J7040; J7050; J7060; J8597; P9016-BL; P9047; Q0162; Z7610

== ENCOUNTER 2016-08-12 12:18 | Emergency (ER) | payer MEDICARE, OTHER ==
[~2016-08-12] VITALS: Ht 157.5 cm; Wt 68.5 kg
[~2016-08-12 12:18] MED LIST changes: -ACET160L15 GT; +ACET650S26 GT; +ALBU2.5V13 IH; -ALBU2.5V38 NEB; +ALLA266C2 TP; -AMIN30LI2 GT; +AMIN30LI4 GT; +ASCO500T9 PO; -BISA10SU8 RC; +DILT30TA14 PO; +DOCU-270 PO; -DOCU100T2 GT; +Gel Dressing TP; -LACT10SO6 GT; +LACT10SO7 GT; +METO25TA6 GT; +METO5SOL GT; +MIDO5TAB PO; -MIRT7.5T10 GT; +NUTR100037 GT; +ONDA4TAB5 GT
[2016-08-12 12:35] VITALS: BP 126/66
--- NOTE | 2016-08-12 12:40 | NUR ---
BIB RA FROM [facility], PATIENT IS ALERT AND ORIENTED X 2, BIB RA FOR RAPID HEART RATE, PATIENT HAS HX OF AFIB, NO CHEST PAIN AT THIS TIME, WILL BE SEEN BY MD AT BEDSIDE, NO OTHER MEDICAL COMPLAINTS NOTED.
--- NOTE | 2016-08-12 12:51 | NUR ---
NURSING SUP. INFORMED OF WHITNEY BED
[2016-08-12] MEDS ORDERED: IV SET PRIMARY PUMP SET 1 EA INFUS.SET MC ONE (12:56)
[2016-08-12] MEDS ORDERED: IV NS 0.9% 500 ML IV ONE (12:56)
[2016-08-12] MEDS ORDERED: IV NS 0.9% 500 ML BAG IV ONE (13:00)
[2016-08-12 13:01] LABS: BASOPHILS # (AUTO) 0.3 /CMM (0.0-0.2); EOSINOPHILS # (AUTO) 0.1 /CMM (0.0-0.7); EOSINOPHILS % (AUTO) 0.9 % (0.0-6.0); HEMATOCRIT 29 % (33-45); HEMOGLOBIN 9.2 g/dL (11.5-14.8); LYMPHOCYTES # (AUTO) 0.8 /CMM (0.8-4.8); MEAN CORPUSCULAR HEMOGLOBIN 31 PG (26.0-33.0); MEAN CORPUSCULAR HGB CONC 32 g/dl (31.0-36.0); MEAN CORPUSCULAR VOLUME 97 fL (82-100); MONOCYTES # (AUTO) 0.5 /CMM (0.1-1.30); MONOCYTES % (AUTO) 4.5 % (2.0-12.0); NEUTROPHILS # (AUTO) 8.4 /CMM (1.8-8.9); NEUTROPHILS % (AUTO) 83.6 % (43.0-81.0); PLATELET COUNT (AUTO) 249 /CMM (150-450); RDW COEFFICIENT OF VARIATION 17.9 (11.5-15.0); RED BLOOD CELL COUNT(AUTO) 2.93 MIL/uL (4.0-5.2); WHITE BLOOD COUNT (AUTO) 10.1 K/uL (4.3-11.0)
[2016-08-12 13:10] LABS: CALCIUM, SERUM 9.2 mg/dL (8.5-10.1); CARBON DIOXIDE 27 mmol/L (21-32); CHLORIDE 98 mmol/L (98-107); CREATININE 1.8 mg/dL (0.6-1.3); GLUCOSE 142 mg/dL (74-106); POTASSIUM 3.6 mmol/L (3.5-5.1); SODIUM SERUM 136 mmol/L (136-145); UREA NITROGEN, BLOOD 43 mg/dL (7-18)
[2016-08-12 13:14] LABS: INR 1.11 (0.87-1.13); PROTHROMBIN TIME 11.7 SECS (9.5-12.7)
[2016-08-12 13:15] LABS: ALANINE AMINOTRANSFERASE 8 U/L (12-78); ALBUMIN 2.4 g/dL (3.4-5.0); ALKALINE PHOSPHATASE 308 U/L (46-116); ASPARTATE AMINOTRANSFERASE 19 U/L (15-37); BILIRUBIN,DIRECT 0.1 mg/dL (0.0-0.2); BILIRUBIN,TOTAL 0.3 mg/dL (0.2-1.0); TOTAL PROTEIN, SERUM 7.1 g/dL (6.4-8.2)
[2016-08-12 13:18] LABS: TROPONIN I < 0.017 ng/mL (0.00-0.056)
[2016-08-12 13:21] LABS: LACTIC ACID 0.9 mmol/L (0.4-2.0)
--- NOTE | 2016-08-12 13:41 | NUR ---
DR.KASHANI BELTRAN
--- NOTE | 2016-08-12 13:52 | NUR ---
[facility] CALLED FOR TRANSPORT BACK TO [facility], ETA 1 HOUR
--- NOTE | 2016-08-12 14:27 | NUR ---
CALLED [phone] ( [facility]), INFORMED THEM DR. MELÉNDEZ ORDERED TO HAVE DIALYSIS TREATMENT ON PT EITHER LATER TODAY OR FIRST THING TOMORROW MORNING, SHE SAID SHE COULD DO TOMORROW AT 8 AM AND SHE INFORMED ME SHE WOULD LET [facility] KNOW
[2016-08-12 15:34] VITALS: BP 96/59
--- NOTE | 2016-08-12 15:36 | NUR ---
Patient discharged to home in stable condition. Written and verbal after care instructions given. Patient verbalizes understanding of instruction. IV removed. Catheter intact and site benign. Pressure and 4x4 applied to site. No bleeding noted. FAMILY AT BEDSIDE UPON DISCHARGE.
== END 2016-08-12 15:35 | disposition home or self-care (01) ==
LOC: ER 12:19
DX: R00.0 Tachycardia, unspecified (principal); I10 Essential (primary) hypertension; I48.91 Unspecified atrial fibrillation; K21.9 Gastro-esophageal reflux disease without esophagitis; E11.9 Type 2 diabetes mellitus without complications; N18.6 End stage renal disease; G93.40 Encephalopathy, unspecified; Z88.0 Allergy status to penicillin; Z88.2 Allergy status to sulfonamides; Z88.6 Allergy status to analgesic agent
CPT/HCPCS: 36415; 71010; 80048; 80076; 83605; 84484; 85025; 85730; 87040 ×2; 87070; 87077; 87186; 87804; 93005; 96360; 99285; A4606; J7040; 87400; Z7610

== ENCOUNTER 2016-08-13 11:47 | Emergency (ER) | payer MEDICARE, OTHER ==
[~2016-08-13] VITALS: Ht 160 cm; Wt 65.3 kg
[2016-08-13 12:13] LABS: BASOPHILS % (AUTO) 0.4 % (0.0-2.0); EOSINOPHILS # (AUTO) 0.1 /CMM (0.0-0.7); EOSINOPHILS % (AUTO) 1.1 % (0.0-6.0); HEMATOCRIT 27 % (33-45); LYMPHOCYTES # (AUTO) 1.2 /CMM (0.8-4.8); LYMPHOCYTES % (AUTO) 15.2 % (20.0-44.0); MEAN CORPUSCULAR HEMOGLOBIN 32 PG (26.0-33.0); MEAN CORPUSCULAR HGB CONC 33 g/dl (31.0-36.0); MEAN CORPUSCULAR VOLUME 96 fL (82-100); MONOCYTES # (AUTO) 0.3 /CMM (0.1-1.30); MONOCYTES % (AUTO) 4.2 % (2.0-12.0); NEUTROPHILS # (AUTO) 6.6 /CMM (1.8-8.9); NEUTROPHILS % (AUTO) 79.1 % (43.0-81.0); PLATELET COUNT (AUTO) 242 /CMM (150-450); RDW COEFFICIENT OF VARIATION 18.2 (11.5-15.0); RED BLOOD CELL COUNT(AUTO) 2.82 MIL/uL (4.0-5.2); WHITE BLOOD COUNT (AUTO) 8.2 K/uL (4.3-11.0)
[2016-08-13 12:25] LABS: CALCIUM, SERUM 8.6 mg/dL (8.5-10.1); POTASSIUM 3.4 mmol/L (3.5-5.1)
[2016-08-13 12:30] LABS: ALBUMIN 2.3 g/dL (3.4-5.0); BILIRUBIN,DIRECT 0.1 mg/dL (0.0-0.2); BILIRUBIN,TOTAL 0.5 mg/dL (0.2-1.0); TOTAL PROTEIN, SERUM 6.8 g/dL (6.4-8.2)
--- NOTE | 2016-08-13 12:30 | NUR ---
RT WRIST #18 IV ACCESS
--- NOTE | 2016-08-13 12:36 | NUR ---
BIB RA FROM SNF FOR ABDOMINAL DISTENTION, ABLE TO COMMUNICATE WITHOUT WORDS, RT AT BEDSIDE, MD AT BEDSIDE, PLACED ON MONITOR, NO RESPIRATORY DISTRESS, WILL CONTINUE TO MONITOR CLOSELY.
[2016-08-13 12:40] LABS: INR 1.2 (0.87-1.13); PROTHROMBIN TIME 12.6 SECS (9.5-12.7)
--- NOTE | 2016-08-13 12:41 | NUR ---
CALLED RT TO TRANSFER PT TO CT
--- NOTE | 2016-08-13 12:51 | NUR ---
PT TAKEN VIA JOSE RAMON VIA ACLS PROTOCOL W RT AT BEDSIDE Addendum: 08/13/16 at [address] SCAN
--- NOTE | 2016-08-13 14:11 | NUR ---
CALLED [facility] FOR TRANSPORT BACK TO [facility], ETA 1600
--- NOTE | 2016-08-13 14:30 | NUR ---
PT BACK FROM PARACENTESIS 4.7 LITER OUTPUT. TOLERATING WELL.
--- NOTE | 2016-08-13 16:30 | NUR ---
IV removed. Catheter intact and site benign. Pressure and 4x4 applied to site. No bleeding noted.
--- NOTE | 2016-08-13 16:33 | NUR ---
Patient discharged to home in stable condition. Written and verbal after care instructions given. Patient verbalizes understanding of instruction. Pt being transported by emt with RT for vent management with family at bedside.
[2016-08-13 16:35] VITALS: BP 95/55
== END 2016-08-13 16:36 ==
LOC: ER 11:52
DX: E11.22 Type 2 diabetes mellitus with diabetic chronic kidney disease (principal); I12.0 Hypertensive chronic kidney disease with stage 5 chronic kidney disease or end stage renal disease; N18.6 End stage renal disease; R18.8 Other ascites; K74.60 Unspecified cirrhosis of liver; G93.40 Encephalopathy, unspecified; I27.2 Other secondary pulmonary hypertension; I48.91 Unspecified atrial fibrillation; K21.9 Gastro-esophageal reflux disease without esophagitis; Z86.73 Personal history of transient ischemic attack (TIA), and cerebral infarction without residual deficits; Z88.0 Allergy status to penicillin; Z99.11 Dependence on respirator [ventilator] status; Z99.2 Dependence on renal dialysis; Z88.2 Allergy status to sulfonamides; Z88.1 Allergy status to other antibiotic agents
CPT/HCPCS: 36415; 71010-TC; 76942-TC; 80048-TC; 80076-TC; 83690-TC; 85025-TC; 85730-TC; A4606; Z7610

== ENCOUNTER 2016-08-31 20:46 | Inpatient (IN) | payer MEDICARE, OTHER ==
[~2016-08-31] VITALS: Ht 152.4 cm; Wt 56.9 kg
[~2016-08-31 20:46] MED LIST changes: +DOCU-270 GT; -DOCU-270 PO
--- NOTE | 2016-08-31 21:00 | NUR ---
PT BIBRA FOR "ABD DISTENTION NOTICED LATER AFTER DIALYSIS THIS MORNING" AOX2 TO NAME. ABLE TO MOUTH NEEDS. RR EVEN AND UNLABORED. NO SOB NOTED. TRACH INTACT AND PATENT CONNECTED TO VENT WITH PRESCRIBED SETTINGS: AC 18 TV [id number] 40% AND PEEP 5. GTUBE INTACT AND PATENT. NO S/S INFECTION NOTED. NO RESIDUALS NOTED. PT WITH RIGHT CW HD SITE. PT GOWNED AND PLACED ON MONITOR WAITING FOR MD MUÑOZ.
--- NOTE | 2016-08-31 21:31 | NUR ---
BELLHOP SERVICE CAPTAIN RON AT BEDSIDE FOR BEDSIDE EVAL. FAMILY AT BEDSIDE
--- NOTE | 2016-08-31 21:40 | NUR ---
PT RECIEVED ON TRACH PORTEX 8 ON NOTED [facility] [place] VENT SETTING FROM TRANSPORT RT. PT IS AWAKE AND ALERT. ENVIRONMENTAL ENGINEERING TECHNICIAN CUFF PRESSURE NOTED. VENT IS PLUGGED IN RED OUTLET, AMBU BAG BEDSIDE. ALARMS ARE SET AND AUDIBLE. SX'D MOD TORRES THICK SECRETIONS. WILL CONTINUE TO MONITOR Addendum: 08/31/16 at 2146 by ALEX CANSECO RT Amended: Links added.
--- NOTE | 2016-08-31 21:46 | NUR ---
INFORMED MILL BEAM FITTER RON CURRENT BP, NNO AT THIS TIME.
--- NOTE | 2016-08-31 21:46 | NUR ---
PT HAD HD TODAY, UNABLE TO OBTAIN URINE, CNC MACHINE OPERATOR RON AWARE.
[2016-08-31 21:54] LABS: CALCIUM, SERUM 8.7 mg/dL (8.5-10.1); POTASSIUM 3.4 mmol/L (3.5-5.1)
[2016-08-31 21:55] LABS: BASOPHILS # (AUTO) 0.1 /CMM (0.0-0.2); BASOPHILS % (AUTO) 0.7 % (0.0-2.0); EOSINOPHILS # (AUTO) 0.1 /CMM (0.0-0.7); EOSINOPHILS % (AUTO) 1.6 % (0.0-6.0); LYMPHOCYTES % (AUTO) 12.7 % (20.0-44.0); MEAN CORPUSCULAR HEMOGLOBIN 34 PG (26.0-33.0); MEAN CORPUSCULAR HGB CONC 34 g/dl (31.0-36.0); MEAN CORPUSCULAR VOLUME 100 fL (82-100); MONOCYTES # (AUTO) 0.4 /CMM (0.1-1.30); MONOCYTES % (AUTO) 4.9 % (2.0-12.0); NEUTROPHILS # (AUTO) 6.5 /CMM (1.8-8.9); NEUTROPHILS % (AUTO) 80.1 % (43.0-81.0); PLATELET COUNT (AUTO) 276 /CMM (150-450); RDW COEFFICIENT OF VARIATION 19.1 (11.5-15.0); WHITE BLOOD COUNT (AUTO) 8.1 K/uL (4.3-11.0)
[2016-08-31 21:57] LABS: HEMOGLOBIN 6.4 g/dL (11.5-14.8)
[2016-08-31 21:58] LABS: HEMATOCRIT 19 % (33-45); INR 1.23 (0.87-1.13); PROTHROMBIN TIME 12.9 SECS (9.5-12.7)
--- NOTE | 2016-08-31 22:07 | NUR ---
DR. NEWSOME AT BEDSIDE FOR EVAL
--- NOTE | 2016-08-31 22:13 | NUR ---
PT GOING TO 115-1
[2016-08-31 22:14] LABS: LYMPHOCYTES % (MANUAL) 13 % (16-48); MONOCYTES % (MANUAL) 2 % (0-11.0); NEUTROPHILS % (MANUAL) 85 (42-76)
[2016-08-31 22:15] LABS: PLATELET ESTIMATE ADEQUATE
[2016-08-31 22:16] LABS: MAGNESIUM 1.9 mg/dL (1.8-2.4); PHOSPHORUS 3.1 mg/dL (2.5-4.9)
--- NOTE | 2016-08-31 22:18 | NUR ---
XRAY AT BEDSIDE
[2016-08-31 23:00] VITALS: BP 118/86
--- NOTE | 2016-08-31 23:04 | NUR ---
REPORT GIVEN TO WHITNEY AYLIN SALAS FOR WHITNEY BED 115-1
--- NOTE | 2016-08-31 23:24 | NUR ---
PT TRANSFERED PER ACLS PROTOCOL.
[2016-08-31 23:25] VITALS: BP 118/86
[2016-08-31] MEDS ORDERED: IV NS 0.9% 250 ML IV ONE (23:56)
[2016-08-31] MEDS ORDERED: BLOOD IV SET 1 EA INFUS.SET MC ONE (23:56)
[2016-09-01] VITALS (14 sets, daily range): BP systolic 83–118; BP diastolic 39–86
[2016-09-01] MEDS ORDERED: diphenhydrAMINE HCL 50 MG/ML VIAL ONE (01:16)
--- NOTE | 2016-09-01 01:18 | NUR ---
WHITNEY RN PT RECEIVING BLOOD TRANSFUSION, PT VITAL SIGNS ARE STABLE. PT COMPLAINING OF BEING ITCHY ALL OVER BODY. DR MELÉNDEZ CALLED, ORDERS RECEIVED FOR BENADRYL 25MG IV Q6HR PRN FOR ITCHINESS. WILL ENTER ORDERS.
[2016-09-01] MEDS: diphenhydrAMINE HCL 50 MG/ML VIAL IV PRN (01:22)
[2016-09-01] MEDS ORDERED: RENAL NOVASOURCE 1,000 ML BOTTLE GT PRN (01:30)
[2016-09-01 07:07] LABS: BASOPHILS # (AUTO) 0.1 /CMM (0.0-0.2); BASOPHILS % (AUTO) 0.8 % (0.0-2.0); EOSINOPHILS # (AUTO) 0.2 /CMM (0.0-0.7); EOSINOPHILS % (AUTO) 2.2 % (0.0-6.0); HEMATOCRIT 22 % (33-45); HEMOGLOBIN 7.3 g/dL (11.5-14.8); LYMPHOCYTES # (AUTO) 1.4 /CMM (0.8-4.8); LYMPHOCYTES % (AUTO) 20.7 % (20.0-44.0); MEAN CORPUSCULAR HEMOGLOBIN 33 PG (26.0-33.0); MEAN CORPUSCULAR HGB CONC 34 g/dl (31.0-36.0); MEAN CORPUSCULAR VOLUME 99 fL (82-100); MONOCYTES # (AUTO) 0.5 /CMM (0.1-1.30); MONOCYTES % (AUTO) 7.2 % (2.0-12.0); NEUTROPHILS # (AUTO) 4.7 /CMM (1.8-8.9); NEUTROPHILS % (AUTO) 69.1 % (43.0-81.0); PLATELET COUNT (AUTO) 247 /CMM (150-450); RDW COEFFICIENT OF VARIATION 19.7 (11.5-15.0); WHITE BLOOD COUNT (AUTO) 6.8 K/uL (4.3-11.0)
[2016-09-01 07:40] LABS: CALCIUM, SERUM 8.6 mg/dL (8.5-10.1); CREATININE 1.1 mg/dL (0.6-1.3); POTASSIUM 3.5 mmol/L (3.5-5.1)
--- NOTE | 2016-09-01 08:00 | NUR ---
ICU/RN INITIAL NOTES,AM RECEIVED REPORT FROM NIGHT NURSE. PT ALERT, FOLLOWS COMMANDS.PT ON TRACH, ON VENT SETTINGS ORDERED BY MD, NO ACUTE DISTRESS NOTED AT THIS TIME. PT ON TELE, CONTROLLED A.FIB. ON UNIT PRBC TRANSFUSED OVERNIGHT, ONE MORE UNIT ORDERED TO BE TRANSFUSED THIS AM WITH HEMODIALYSIS. WILL FOLLOW THROUGH. PT SCHEDULED FOR PARACENTESIS TODAY, CONSENT OBTAINED AND IN CHART. WILL FOLLOW UP WITH SCHEDULING. MEDICATION RECON PENDING TO BE DONE BY MD. ALL NEEDS WILL BE MET, SAFETY MEASURES TAKEN, BED IN LOW POSITION, SIDE RAILS UP, CALL LIGHT WITHIN REACH. WILL CONTINUE CARE.
[2016-09-01] MEDS ORDERED: BLOOD IV SET 1 EA INFUS.SET MC ONE (09:27)
[2016-09-01] MEDS ORDERED: MIDODRINE HCL (5MG) 5 MG TABLET GT PRN (11:30)
[2016-09-01] MEDS ORDERED: IPRATROPIUM NEB FS 0.5 MG/2.5 ML AMPUL.NEB IH PRN (11:30)
[2016-09-01] MEDS ORDERED: ACETAMINOPHEN 650 MG/20.3 ML UDC GT PRN (11:30)
--- NOTE | 2016-09-01 11:30 | NUR ---
ICU/RN: HEMODIALYSIS DONE, 1 LITER OUT. VSS, NO DISTRESS NOTED, WILL CONTINUE TO MONITOR AND ASSESS
[2016-09-01] MEDS ORDERED: LACTULOSE 10 G/15 ML UDC (PYXIS) GT PRN (12:00)
[2016-09-01] MEDS ORDERED: Z GUARD REMEDY 2 OZ OINT TP PRN (13:00)
[2016-09-01] MEDS: ALBUTEROL FS 2.5 MG/0.5 ML VIAL.NEB IH SCH ×2 (13:10→19:17)
[2016-09-01] MEDS: IPRATROPIUM NEB FS 0.5 MG/2.5 ML AMPUL.NEB IH SCH ×2 (13:11→19:17)
[2016-09-01] MEDS: SILDENAFIL CITRATE 20 MG TABLET GT SCH ×2 (13:33→17:43)
[2016-09-01] MEDS: MIDODRINE HCL (5MG) 5 MG TABLET PO SCH ×2 (13:33→21:20)
[2016-09-01] MEDS: HYDROGEL DRESSING 90 GM TUBE TP SCH (14:27)
[2016-09-01] MEDS: NEOMY SULF/BACITRAC ZN/POLY 15 GM TUBE TP SCH (14:27)
[2016-09-01] MEDS: Z GUARD REMEDY 2 OZ OINT TP SCH (14:27)
--- NOTE | 2016-09-01 15:45 | NUR ---
ICU/RN: US TECH AT BEDSIDE SETTING UP FOR PARACENTESIS. CONSENT OBTAINED. AWAITING FOR RADIOLOGIST. WILL CONTINUE TO MONITOR AND ASSESS
--- NOTE | 2016-09-01 16:30 | NUR ---
ICU/RN: PARACENTESIS DONE, 5 LITERS OUT, CYTOLOGY ORDERED BY , SPECIMEN SENT TO LAB. VSS, PT TOLERATED WELL, NO ISSUES NOTED. FAMILY AT BEDSIDE, SON RAYMOND. SIGNED CONSENT FOR THORACENTESIS, WHICH WILL TAKE PLACE TOMORROW. TUBE FEEDING STARTED. WILL CONTINUE CARE.
[2016-09-01 17:07] LABS: ALBUMIN 2.2 g/dL (3.4-5.0); BILIRUBIN,DIRECT 0.1 mg/dL (0.0-0.2); BILIRUBIN,TOTAL 0.4 mg/dL (0.2-1.0); THYROID STIMULATING HORMONE 3.136 uIU/mL (0.358-3.74); TOTAL PROTEIN, SERUM 6.5 g/dL (6.4-8.2)
[2016-09-01] MEDS: DOCUSATE SODIUM LIQ 100 MG/10 ML UDC GT SCH (17:42)
[2016-09-01] MEDS: METOCLOPRAMIDE HCL 10 MG/10 ML UDC GT SCH ×2 (17:42→23:41)
--- NOTE | 2016-09-01 18:05 | NUR ---
RT NOTES: BREATHING TREATMENT GIVEN AND TOLERATED WELL. WILL CONTINUE TO MONITOR AND ASSESS.
--- NOTE | 2016-09-01 18:52 | NUR ---
ICU/RN ENDING NOTES,AM REPORT WILL BE ENDORSED TO NIGHT NURSE FOR CONTINUATION OF CARE. ALL NEEDS MET. PT ON VENT ORDERED, NO DISTRESS NOTED. TUBE FEEDING INFUSING. SAFETY MEASURES TAKEN, BED IN LOW POSITION, SIDE RAILS UP, CALL LIGHT WITHIN REACH. VSS, THORACENTESIS PENDING FOR TOMORROW, CONSENT IN CHART
[2016-09-01] MEDS: ACETAMINOPHEN 650 MG/20.3 ML UDC GT SCH (21:18)
[2016-09-01] MEDS: LEVETIRACETAM SOL (5 ML) 100 MG/ML UDC GT SCH (21:19)
[2016-09-01] MEDS: TRAMADOL HCL 50 MG TABLET GT SCH (21:19)
[2016-09-01] MEDS: METOPROLOL TARTRATE 25 MG TABLET GT SCH (21:20)
[2016-09-02] VITALS: BP 90/29
[2016-09-02] MEDS: IPRATROPIUM NEB FS 0.5 MG/2.5 ML AMPUL.NEB IH SCH ×4 (01:40→19:47)
[2016-09-02] MEDS: ALBUTEROL FS 2.5 MG/0.5 ML VIAL.NEB IH SCH ×4 (01:40→19:47)
[2016-09-02 04:00] VITALS: BP 94/29
[2016-09-02] MEDS: METOCLOPRAMIDE HCL 10 MG/10 ML UDC GT SCH ×4 (05:07→23:48)
[2016-09-02] MEDS: MIDODRINE HCL (5MG) 5 MG TABLET PO SCH ×3 (05:07→21:00)
[2016-09-02] MEDS: PANTOPRAZOLE 40 MG/PACK PACK GT SCH (05:38)
[2016-09-02 07:07] LABS: BASOPHILS # (AUTO) 0.1 /CMM (0.0-0.2); BASOPHILS % (AUTO) 0.8 % (0.0-2.0); EOSINOPHILS # (AUTO) 0.1 /CMM (0.0-0.7); EOSINOPHILS % (AUTO) 1.7 % (0.0-6.0); HEMATOCRIT 26 % (33-45); HEMOGLOBIN 8.6 g/dL (11.5-14.8); LYMPHOCYTES # (AUTO) 1.3 /CMM (0.8-4.8); LYMPHOCYTES % (AUTO) 18.9 % (20.0-44.0); MEAN CORPUSCULAR HEMOGLOBIN 33 PG (26.0-33.0); MEAN CORPUSCULAR HGB CONC 33 g/dl (31.0-36.0); MEAN CORPUSCULAR VOLUME 98 fL (82-100); MONOCYTES # (AUTO) 0.6 /CMM (0.1-1.30); MONOCYTES % (AUTO) 8.7 % (2.0-12.0); NEUTROPHILS # (AUTO) 4.8 /CMM (1.8-8.9); NEUTROPHILS % (AUTO) 69.9 % (43.0-81.0); PLATELET COUNT (AUTO) 219 /CMM (150-450); RDW COEFFICIENT OF VARIATION 20.3 (11.5-15.0); RED BLOOD CELL COUNT(AUTO) 2.63 MIL/uL (4.0-5.2); WHITE BLOOD COUNT (AUTO) 6.9 K/uL (4.3-11.0)
--- NOTE | 2016-09-02 07:15 | NUR ---
Received female deena pt on mechanical ventilator. Pt deena is secure. Vent is plugged into a red outlet, alarms are audible, and BVM is at bedside. Addendum: 09/02/16 at 0911 by KASSI FARMER RT Amended: Links added.
--- NOTE | 2016-09-02 07:30 | NUR ---
RN NOTES PT ON BED REST,AOX3, ON MECH VENT WITH SETTINGS ORDERED, TOLERATING WELL. SATURATION 100 %, LUNG SOUNDS DIMINISHED, ACTIVITY TOLERANCE IS POOR, PT ON G TUBE FEEDING. TOLERATING WELL, NO RESIDUAL NOTED, ON HD, R CHEST WALL HD CATH INTACT IN PLACE, PT HAS SOME URINE OUTPUT, PARACENTESIS DONE AND THORACENTESIS IS EXPECTED TODAY AND TOMORROW.NO IVF FLUIDS, WOUND CARE DONE ORDERED, DENIES PAIN, NO FEVER, VS STABLE, KEPT CLEAN AND DRY, ISOFLEX MATTRESS, TEACHING DONE TO PT AND FAMILY, VERBALIZED UNDERSTANDING. WILL CONTINUE TO MONITOR
[2016-09-02 08:00] VITALS: BP 92/35
[2016-09-02 08:11] LABS: VIT D, 25-HYDROXY 10.3 ng/mL (30.0-100.0)
[2016-09-02] MEDS: METOPROLOL TARTRATE 25 MG TABLET GT SCH ×2 (09:00→21:00)
[2016-09-02] MEDS: ACETAMINOPHEN 650 MG/20.3 ML UDC GT SCH ×2 (09:00→21:41)
[2016-09-02] MEDS: VIT B CMPLX 3/FA/VIT C/BIOTIN 1 TAB TABLET PO SCH (09:32)
[2016-09-02] MEDS: DOCUSATE SODIUM LIQ 100 MG/10 ML UDC GT SCH ×2 (09:32→16:59)
[2016-09-02] MEDS: LEVETIRACETAM SOL (5 ML) 100 MG/ML UDC GT SCH ×2 (09:32→21:41)
[2016-09-02] MEDS: TRAMADOL HCL 50 MG TABLET GT SCH ×2 (09:33→21:42)
[2016-09-02] MEDS: SILDENAFIL CITRATE 20 MG TABLET GT SCH ×3 (09:38→17:00)
[2016-09-02] MEDS: HYDROGEL DRESSING 90 GM TUBE TP SCH (09:39)
[2016-09-02] MEDS: Z GUARD REMEDY 2 OZ OINT TP SCH (09:39)
[2016-09-02] MEDS: NEOMY SULF/BACITRAC ZN/POLY 15 GM TUBE TP SCH (09:39)
[2016-09-02 11:32] LABS: CARCINOEMBRYONIC AG (CEA) 3.9 ng/mL (0.0-4.7)
--- NOTE | 2016-09-02 11:50 | NUR ---
RN NOTES PT HAD THORACENTESIS OF RIGHT SIDE DONE AT BEDSIDE, TOLERATED WELL, CHEST X RAY WAS DONE AFTERWARDS, SHOWING IMPROVEMENT, NO PNEUMOTHORAX NOTED. PT COMFORTABLE AND SATURATION 99%. FLUID SENT TO THE LAB. WILL CONTINUE TO MONITOR.
[2016-09-02 12:00] VITALS: BP 93/38
[2016-09-02 13:26] LABS: GLUCOSE,BODY FLUID 112 mg/dL; PROTEIN, BODY FLUID 3.5 G/DL
--- NOTE | 2016-09-02 15:05 | NUR ---
PT HAD WOUND DEBRIDEMENT AT BEDSIDE, TOLERATED WELL, SON AT BEDSIDE. NO BLEEDING NOTED. WILL CONTINUE TO MONITOR.
[2016-09-02 16:00] VITALS: BP 85/30
--- NOTE | 2016-09-02 19:30 | NUR ---
SYSTEM SUPPORT DEVELOPER INITIAL NOTE RECEIVED PT SLEEPING IN BED WITH SON AT BEDSIDE. PT A/O X2 CROATIAN SPEAKING AND MOUTHS WORDS. ON MECH VENT WELL TOLERATED AND SATING WELL. TELE-AFIB 90'S. IV SITE CLEAN AND INTACT, FLUSHING WELL AND PATENT. RCW PERMACATH CLEAN AND INTACT. GTUBE FEEDING WELL TOLERATED AND NO RESIDUAL. GTUBE SITE CLEAN, DRY AND INTACT. ALL SAFETY MEASURES IN PLACE. WILL CONTINUE TO MONITOR.
[2016-09-02 20:00] VITALS: BP 100/49
[2016-09-02 21:28] LABS: TOTAL VOLUME,BODY FLUID 1100 mL
[2016-09-02 21:29] LABS: WBC, BODY FLUID 125 /cu. mm. (0-200)
[2016-09-02 21:41] LABS: MONOCYTES,BODY FLUID 1 %; POLYNUCLEAR, BODY FLUID 10 % (0-25)
--- NOTE | 2016-09-02 23:00 | NUR ---
LIBRARY SALES CONSULTANT NOTE SPOKE WITH DIETARY. NEW ORDER TO CHANGE GTUBE FEEDING OF NOVASOURCE 45ML/HR TO 35ML/HR. ORDER READ BACK. ORDERS NOTED AND CARRIED OUT. WILL CONTINUE TO MONITOR.
[2016-09-03] VITALS (7 sets, daily range): BP systolic 70–150; BP diastolic 32–130
[2016-09-03] MEDS: IPRATROPIUM NEB FS 0.5 MG/2.5 ML AMPUL.NEB IH SCH ×4 (00:43→19:31)
[2016-09-03] MEDS: ALBUTEROL FS 2.5 MG/0.5 ML VIAL.NEB IH SCH ×4 (00:43→19:31)
[2016-09-03] MEDS: MIDODRINE HCL (5MG) 5 MG TABLET PO SCH ×3 (04:59→20:21)
[2016-09-03] MEDS: PANTOPRAZOLE 40 MG/PACK PACK GT SCH (05:37)
[2016-09-03] MEDS: METOCLOPRAMIDE HCL 10 MG/10 ML UDC GT SCH ×3 (05:37→17:24)
--- NOTE | 2016-09-03 06:30 | NUR ---
KILN BURNER CLOSING NOTE PT REMAINED IN STABLE CONDITION DURING SHIFT. ON MECH VENT AND SETTINGS WELL TOLERATED. GTUBE INTACT AND FEEDING WELL TOLERATED. ISOLATION PRECAUTIONS OBSERVED. KEPT CLEAN AND DRY. WILL ENDORSE TO NEXT SHIFT FOR CONNOR.
--- NOTE | 2016-09-03 07:15 | NUR ---
RN INITIAL NOTE PT RECEIVED IN BED, RESTING COMFORTABLY. ALER ANT ORIENTED. NON-VERBAL, MOUTHS WORD. SERBIAN SPEAKING. PT ON TRACH, PORTEX#8 AC 18, TV 500 FI02 40%. PEEP 5. RESPIRATIONS ARE EVEN AND UNLABORED. NO RESPIRATORY DISTRESS OR SOB. HOB HIGH FOWLERS. TRACH DRESSING C/D/I. A-FIB ON TELE MONITOR. GTUBE PATENT, INTACT. NOVASOURCE AT 35 ML/HR. TOLERATING FEEDING WELL. 10ML RESIDUAL ASPIRATED AND RETURNED. LFA IV SITE, FLUSHED, PATENT AND INTACT. DRESSING C/D/I. ISOLATION PRECAUTIONS OBSERVED AT ALL TIMES. SAFETY MEASURES IN PLACE, BED IN LOCKED, LOW POSITION, TWO SIDE RAILS UP. BED ALARM ON. CALL LIGHT WITHIN REACH. WILL CONTINUE TO MONITOR.
[2016-09-03] MEDS: LEVETIRACETAM SOL (5 ML) 100 MG/ML UDC GT SCH ×2 (08:46→20:19)
[2016-09-03] MEDS: ACETAMINOPHEN 650 MG/20.3 ML UDC GT SCH ×2 (08:46→20:19)
[2016-09-03] MEDS: TRAMADOL HCL 50 MG TABLET GT SCH (08:47)
[2016-09-03] MEDS: DOCUSATE SODIUM LIQ 100 MG/10 ML UDC GT SCH ×2 (08:47→17:24)
[2016-09-03] MEDS: VIT B CMPLX 3/FA/VIT C/BIOTIN 1 TAB TABLET PO SCH (08:47)
[2016-09-03] MEDS: SILDENAFIL CITRATE 20 MG TABLET GT SCH ×3 (08:47→16:44)
[2016-09-03] MEDS: HYDROGEL DRESSING 90 GM TUBE TP SCH (08:48)
[2016-09-03] MEDS: METOPROLOL TARTRATE 25 MG TABLET GT SCH ×2 (08:48→20:21)
[2016-09-03] MEDS: MUPIROCIN OINT 2% 22 GM TUBE SCH ×2 (08:48→20:23)
[2016-09-03] MEDS: Z GUARD REMEDY 2 OZ OINT TP SCH (08:49)
[2016-09-03] MEDS: NEOMY SULF/BACITRAC ZN/POLY 15 GM TUBE TP SCH (08:49)
[2016-09-03] MEDS: diphenhydrAMINE HCL 50 MG/ML VIAL IV PRN ×2 (09:14→14:41)
[2016-09-03] MEDS ORDERED: TRAMADOL HCL 50 MG TABLET GT PRN (10:00)
[2016-09-03] MEDS ORDERED: ALBUMIN 25% 25 GM in PREMIX 1 EA IV PRN (11:00)
[2016-09-03] MEDS ORDERED: SECONDARY IV SET 1 EA INFUS.SET MC ONE (11:10)
[2016-09-03] MEDS ORDERED: ALBUMIN 25% 25 GM in PREMIX 1 EA IV ONE (11:15)
--- NOTE | 2016-09-03 11:23 | NUR ---
RN NOTE ALBUMIN ALREADY GIVEN TIMES 1
--- NOTE | 2016-09-03 12:45 | NUR ---
RN NOTE PT HAD HD THIS AM. B/P 80/33 AND NOW 70/33. MADE AWARE
--- NOTE | 2016-09-03 18:36 | NUR ---
RN CLOSING NOTE PT RESTING IN BED COMFORTABLY, ALL MD ORDERS CARRIED OUT. PT KEPT CLEAN AND DRY. ALL SAFETY MEASURES IN PLACE AT ALL TIMES. ISOLATION PRECAUTIONS OBSERVED ALWAYS. REPORT WILL BE GIVEN TO PM RN FOR CONNOR.
--- NOTE | 2016-09-03 19:31 | NUR ---
PT RCVD ON MECH VENT WITH NOTED SETTINGS. SUCTION SMALL AMOUNT OF YELLOWISH SEMI THICK SECRETIONS. EQUAL BILATERAL BREATH SOUNDS. VENT ALARM WORKING AND AUDIBLE . VENT PLUGGED INTO RED OUTLET. AMBU BAG AT BEDSIDE, WILL CONTINUE TO MONITOR.
--- NOTE | 2016-09-03 20:00 | NUR ---
RN INITIAL NOTES RECEIVED PX AWAKE, FOLLOWS COMMAND, WITH TRACH PORTEX 8 WITH CUFF INTACT, CONNECTED TO VENT; G TUBE TO TF, TF TOLERATED; RIGHT CHEST WALL PERMACATH; HOB AT 30 ANGLE; CARY CATH TO BAG BY GRAVITY; REPOSITIONED; HEELS OFFLOADED; RT SUCTIONED ORALLY AND VIA TRACH; DISCUSSED PLAN OF CARE; FAMILY AT BEDSIDE.
[2016-09-04] VITALS: BP 88/40
--- NOTE | 2016-09-04 | NUR ---
RN NOTES CONDITION UNCHANGED; SUCTIONED VIA TRACH AND ORALLY; TRANSFERRED TO ROOM 116-1 CLOSER TO NURSES STATION, TRANSFER TOLERATED.
[2016-09-04] MEDS: RENAL NOVASOURCE 1,000 ML BOTTLE GT PRN (00:39)
[2016-09-04] MEDS: METOCLOPRAMIDE HCL 10 MG/10 ML UDC GT SCH ×4 (00:40→17:14)
[2016-09-04] MEDS: IPRATROPIUM NEB FS 0.5 MG/2.5 ML AMPUL.NEB IH SCH ×4 (01:31→20:05)
[2016-09-04] MEDS: ALBUTEROL FS 2.5 MG/0.5 ML VIAL.NEB IH SCH ×4 (01:31→20:04)
[2016-09-04 04:00] VITALS: BP 89/39
[2016-09-04] MEDS: MIDODRINE HCL (5MG) 5 MG TABLET PO SCH ×3 (05:34→21:57)
[2016-09-04] MEDS: PANTOPRAZOLE 40 MG/PACK PACK GT SCH (05:34)
--- NOTE | 2016-09-04 06:11 | NUR ---
RN CLOSING NOTES NO OVERNIGHT EVENTS NOTED; CONDITION AND NEURO STATUS UNCHANGED; PX DENIED PAIN, SOB, N/V, NOT IN DISTRESS; REPOSITIONED IN BED; BEDBATH RENDERED, ORAL AND CARY CARE GIVEN, TRACH CARE AND G-TUBED CARE GIVEN, CHANGED BOTH DRESSINGS; CHANGED DRESSING ON THE SACRAL AREA USING PACKING WITH HYDROGEL AND MEPILEX, ALL PROCEDURES TOLERATED; SUCTIONED ORALLY AND TRACHEALLY; PIV'S PATENT AND INTACT; NO NEW SKIN BREAKDOWN; WILL ENDORSE TO NEXT RN.
--- NOTE | 2016-09-04 07:25 | NUR ---
RN INITIAL NOTES: Rec'd pt awake on bed, HOB elevated, not in any distress. Pt on mech vent via trache (Portex 8) w/ ff settings: AC 18, TV 500, FiO2 40%, PEEP 5, saturating at 100%. On telemonitor, Megan.fib w/ HR 83 bpm. Pt has FC patent & intact draining to adequate yellowish urine output. On continuous GT feeding, Novasource at 35 cc/hr, residuals checked. Pt has RCW permacath, clean/dry & intact. Has R hand G 22, SL & LFA G 18, SL, flushed, patent, clean/dry & intact, w/ no signs of infection/ infiltration noted. Provided comfort & safety environment. Call light placed w/in reached. Bed kept low & in locked position. Will turn, reposition & offload heels as per protocol. Will continue to monitor.
[2016-09-04 08:00] VITALS: BP_SYST 95; BP_SYST 98; BP_DIAS 37
[2016-09-04] MEDS: METOPROLOL TARTRATE 25 MG TABLET GT SCH ×2 (09:00→21:57)
[2016-09-04] MEDS: DOCUSATE SODIUM LIQ 100 MG/10 ML UDC GT SCH ×2 (09:06→16:48)
[2016-09-04] MEDS: ACETAMINOPHEN 650 MG/20.3 ML UDC GT SCH ×2 (09:06→21:56)
[2016-09-04] MEDS: SILDENAFIL CITRATE 20 MG TABLET GT SCH ×3 (09:06→16:49)
[2016-09-04] MEDS: VIT B CMPLX 3/FA/VIT C/BIOTIN 1 TAB TABLET PO SCH (09:06)
[2016-09-04] MEDS: LEVETIRACETAM SOL (5 ML) 100 MG/ML UDC GT SCH ×2 (09:06→21:56)
[2016-09-04] MEDS: BUMETANIDE (1 MG) 1 MG TABLET PO SCH (09:06)
[2016-09-04] MEDS: NEOMY SULF/BACITRAC ZN/POLY 15 GM TUBE TP SCH (09:08)
[2016-09-04] MEDS: HYDROGEL DRESSING 90 GM TUBE TP SCH (09:08)
[2016-09-04] MEDS: Z GUARD REMEDY 2 OZ OINT TP SCH (09:08)
--- NOTE | 2016-09-04 11:45 | NUR ---
RN NOTES: Verified w/ Dr. Greer if Left Thoracentesis will still be performed and if it is okay to start Eliquis medication. He said, can start the meds now. Pharmacy notified.
[2016-09-04 12:00] VITALS: BP_SYST 75; BP_SYST 93; BP_DIAS 31; BP_DIAS 44
[2016-09-04] MEDS: MUPIROCIN OINT 2% 22 GM TUBE SCH ×2 (12:44→21:57)
[2016-09-04] MEDS: APIXABAN 2.5 MG TABLET GT SCH ×2 (13:04→17:14)
[2016-09-04 16:00] VITALS: BP 97/49
--- NOTE | 2016-09-04 18:38 | NUR ---
RN CLOSING NOTES: No acute changes noted w/in shift. Pt tolerated prescribed MV settings, saturating at 100%. On telemonitor, A.fib w/ BBB, HR 81 bpm. Pt's FC patent & intact. Continuous GT feeding, Novasource at 35 cc/hr, tolerated well, no residuals noted upon checking. Pt's RCW permacath, clean/dry & intact. R hand G 22, SL & LFA G 18, SL, flushed, patent, clean/dry & intact, w/ no signs of infection/ infiltration noted. Call light placed w/in reached. Bed kept low & in locked position. Turned, repositioned & offloaded heels. Wound care done. Isolation precaution observed. Will endorse to PM RN for CONNOR.
--- NOTE | 2016-09-04 19:15 | NUR ---
RN INITIAL NOTES RECEIVED PATIENT AWAKE AND ABLE TO MOUTH WORDS, ABLE TO FOLLOW COMMANDS. NO ACUTE DISTRESS OBSERVED. PATIENT'S FAMILY AT BEDSIDE, UPDATED WITH PLAN OF CARE NEEDED. PATIENT ON MECH VENT VIA TRACH, IN MIDLINE, C/D/I. AIRWAY SUCTIONED AND KEPT PATENT. AFIB WITH BBB ON MONITOR, HR OF 99. GTUBE FLUSHED AND KEPT PATENT, PLACEMENT VERIFIED. TOLERATING FEEDING WELL, NO GASTRIC RESIDUAL NOTED. HOB ELEVATED. F/C INTACT AND DRAINING WELL WITH YELLOW URINE. R CHESTWALL PERMACATH IN PLACE, DRESSING DRY AND INTACT. R HAND G22, L FOREARM G18, FLUSHED AND PATENT, NO SIGNS OF INFILTRATION NOTED. PATIENT'S NEEDS ANTICIPATED AND MET. SAFETY AND COMFORT ENSURED. BED IN LOW AND LOCKED POSITION. WILL MONITOR CLOSELY.
[2016-09-04 20:00] VITALS: BP 89/44
--- NOTE | 2016-09-04 20:00 | NUR ---
RN NOTES PATIENT TURNED AND REPOSITIONED. NOTED PATIENT WITH SKIN BREAKDOWN ON PATIENT'S L UPPER POSTERIOR AREA AND MIDBACK AREA. NOTED AREA WITH SCANT AMOUNT OF BLEEDING ON SITE, REDDENED. INITIAL WOUND TREATMENT RENDERED, KEPT CLEAN AND DRY. APPLIED MEPILEX ON SITE FOR SKIN PROTECTION. CN MADE AWARE. MD NOTIFIED. WOUND CARE CONSULT ORDERED. PICTURES TAKEN AND FILED IN CHART. PATIENT WILL BE TURNED AND REPOSITIONED [id number] AND PRN. WILL MONITOR.
[2016-09-05] VITALS (14 sets, daily range): BP systolic 82–112; BP diastolic 26–63
[2016-09-05] MEDS: METOCLOPRAMIDE HCL 10 MG/10 ML UDC GT SCH ×4 (00:06→18:04)
[2016-09-05] MEDS: IPRATROPIUM NEB FS 0.5 MG/2.5 ML AMPUL.NEB IH SCH ×4 (02:12→19:27)
[2016-09-05] MEDS: ALBUTEROL FS 2.5 MG/0.5 ML VIAL.NEB IH SCH ×4 (02:12→19:27)
[2016-09-05] MEDS: RENAL NOVASOURCE 1,000 ML BOTTLE GT PRN (05:26)
[2016-09-05] MEDS: MIDODRINE HCL (5MG) 5 MG TABLET PO SCH ×3 (05:27→21:54)
[2016-09-05] MEDS: PANTOPRAZOLE 40 MG/PACK PACK GT SCH (05:30)
--- NOTE | 2016-09-05 06:17 | NUR ---
RN NOTES HD NURSE, NETTIE, AT BEDSIDE. PATIENT DUE FOR FLUID REMOVAL ORDERED. PATIENT NOT IN ANY DISTRESS.
--- NOTE | 2016-09-05 06:37 | NUR ---
RN CLOSING NOTES PATIENT WITH NO ACUTE DISTRESS OBSERVED OVERNIGHT. PATIENT MONITORED CLOSELY FOR ANY INDICATIONS OF PAIN AND DISCOMFORT. REMAINS AFIB WITH BBB, HR IN THE 70s. MECH VENT TOLERATED WELL, AIRWAY SUCTIONED NEEDED. INSERTED NEW IV SITE ON PATIENT'S R WRIST G22, FLUSHED AND KEPT PATENT; PREVIOUS PIV WERE LEAKING AND WAS THEN REMOVED, PRESSURE DRESSING APPLIED. TOLERATED GT FEEDING WELL WITH NO RESIDUAL NOTED. F/C INTACT AND DRAINING WELL WITH CLOUDY, YELLOW URINE. PATIENT KEPT CLEAN AND DRY. TURNED AND REPOSITIONED [id number]. HOB ELEVATED. NEEDS ANTICIPATED AND MET. SAFETY AND COMFORT ENSURED. BED IN LOW AND LOCKED POSITION. WILL ENDORSE ACCORDINGLY FOR CONTINUITY OF CARE.
--- NOTE | 2016-09-05 07:25 | NUR ---
RN INITIAL NOTES: Rec'd pt awake on bed, HOB elevated, not in any distress with ongoing HD (HD RN at bedside). Pt on mech vent via trache (Portex 8) w/ ff settings: AC 18, TV 500, FiO2 40%, PEEP 5, saturating at 100%. Suctioned small amount of yellowish sputum. On telemonitor, A.fib w/ BBB HR 80 bpm. Pt has FC patent & intact draining to adequate yellowish urine output. On continuous GT feeding, Novasource at 35 cc/hr, flushed, patent and intact. Pt has RCW permacath in place, clean/dry & intact. Has R wrist G 22, SL, flushed, patent, clean/dry & intact, w/ no signs of infection/ infiltration noted. Provided comfort & safety environment. Call light placed w/in reached. Bed kept low & in locked position. Will turn, reposition & offload heels as per protocol. Will monitor closely.
[2016-09-05 08:29] LABS: BASOPHILS % (AUTO) 0.6 % (0.0-2.0); EOSINOPHILS # (AUTO) 0.3 /CMM (0.0-0.7); EOSINOPHILS % (AUTO) 5.1 % (0.0-6.0); HEMATOCRIT 23 % (33-45); HEMOGLOBIN 7.6 g/dL (11.5-14.8); LYMPHOCYTES % (AUTO) 15.7 % (20.0-44.0); MEAN CORPUSCULAR HEMOGLOBIN 32 PG (26.0-33.0); MEAN CORPUSCULAR HGB CONC 33 g/dl (31.0-36.0); MEAN CORPUSCULAR VOLUME 99 fL (82-100); MONOCYTES # (AUTO) 0.5 /CMM (0.1-1.30); MONOCYTES % (AUTO) 7.1 % (2.0-12.0); NEUTROPHILS # (AUTO) 4.6 /CMM (1.8-8.9); NEUTROPHILS % (AUTO) 71.5 % (43.0-81.0); PLATELET COUNT (AUTO) 165 /CMM (150-450); RDW COEFFICIENT OF VARIATION 18.8 (11.5-15.0); RED BLOOD CELL COUNT(AUTO) 2.35 MIL/uL (4.0-5.2); WHITE BLOOD COUNT (AUTO) 6.5 K/uL (4.3-11.0)
[2016-09-05 08:43] LABS: CALCIUM, SERUM 8.1 mg/dL (8.5-10.1); CREATININE 1.7 mg/dL (0.6-1.3); MAGNESIUM 1.9 mg/dL (1.8-2.4); PHOSPHORUS 3.3 mg/dL (2.5-4.9); POTASSIUM 3.1 mmol/L (3.5-5.1)
[2016-09-05] MEDS: METOPROLOL TARTRATE 25 MG TABLET GT SCH ×2 (09:00→21:00)
[2016-09-05] MEDS: DOCUSATE SODIUM LIQ 100 MG/10 ML UDC GT SCH ×2 (09:25→18:04)
[2016-09-05] MEDS: BUMETANIDE (1 MG) 1 MG TABLET PO SCH (09:25)
[2016-09-05] MEDS: VIT B CMPLX 3/FA/VIT C/BIOTIN 1 TAB TABLET PO SCH (09:25)
[2016-09-05] MEDS: LEVETIRACETAM SOL (5 ML) 100 MG/ML UDC GT SCH ×2 (09:25→21:54)
[2016-09-05] MEDS: ACETAMINOPHEN 650 MG/20.3 ML UDC GT SCH ×2 (09:25→21:54)
[2016-09-05] MEDS: APIXABAN 2.5 MG TABLET GT SCH ×2 (09:25→18:05)
[2016-09-05] MEDS: SILDENAFIL CITRATE 20 MG TABLET GT SCH ×3 (09:25→18:04)
[2016-09-05] MEDS: HYDROGEL DRESSING 90 GM TUBE TP SCH (09:26)
[2016-09-05] MEDS: Z GUARD REMEDY 2 OZ OINT TP SCH (09:26)
[2016-09-05] MEDS: MUPIROCIN OINT 2% 22 GM TUBE SCH ×2 (09:26→21:54)
[2016-09-05] MEDS: NEOMY SULF/BACITRAC ZN/POLY 15 GM TUBE TP SCH (09:27)
[2016-09-05] MEDS ORDERED: EPOETIN ALFA (10,000 UNIT) 10,000 UNIT/ML VIAL SQ ONE (11:00)
[2016-09-05] MEDS ORDERED: BLOOD IV SET 1 EA INFUS.SET MC ONE (14:08)
[2016-09-05] MEDS ORDERED: IV NS 0.9% 250 ML IV ONE (14:08)
--- NOTE | 2016-09-05 15:10 | NUR ---
RN NOTES: Blood Transfusion of 1 PRBC started as ordered for Hgb 7.6, Hct 23. Consent done c/o son Rolando. Verified blood product w/ AYLIN Avalos. Initial VS taken & recorded. Monitored pt for any blood transfusion reaction.
--- NOTE | 2016-09-05 18:00 | NUR ---
RN NOTES: Transfused 1 unit of PRBC as ordered. Pt tolerated well the transfusion. No transfusion reaction noted - negative for fever/chills, no SOB, pruritus, or urticaria. VS stable.
--- NOTE | 2016-09-05 19:17 | NUR ---
RN CLOSING NOTES: No acute changes noted w/in shift. Transfused 1 unit of PRBC as ordered. Pt tolerated prescribed MV settings, saturating at 100%. Suctioned secretions. Pt remains A.fib w/ BBB, HR 86 bpm on telemonitor. Pt's FC patent & intact. Tolerated well continuous GT feeding, Novasource at 35 cc/hr, no residuals noted upon checking. RCW permacath in place, clean/dry & intact. R wrist G 22, SL, flushed, patent, clean/dry & intact, w/ no signs of infection/ infiltration noted. Call light placed w/in reached. Bed kept low & in locked position. Turned, repositioned & offloaded heels. Wound care done. Isolation precaution observed. Endorsed to PM RN for CONNOR.
--- NOTE | 2016-09-05 19:50 | NUR ---
RN NOTES RECEIVED PT AWAKE LAYING ON BED SON AT BEDSIDE. NO ACUTE RESP DISTRESS WITH TRACH PORTEX 8 CONNECTED TO VENT SETTING OF AC 18 TV 500 FIO2 40% PEEP 5 A- FIB HR 76 ON TELE MONITOR. WITH BBB IV SITE ON RIGHT WRIST G 22 INTACT AND PATENT RIGHT CHEST WALL HD CATH INTACT WITH CLEANED DRESSING. NO ACTIVE BLEEDING NOTED. CONTINUE TO MONITOR FOR HYPOTENSION NO S/S OF HYPOTENSION LIKE DIZZINESS PER PATIENT OFFLOADED EXT WITH PILLOWS. KEPT PT CLEAN AND DRY AND COMFORTABLE IN BED. REDUCED PRESSURE TO BONY PROMINENCE AREA. WILL CONTINUE TO MONITOR.
[2016-09-06] VITALS: BP 108/50
[2016-09-06] MEDS: METOCLOPRAMIDE HCL 10 MG/10 ML UDC GT SCH ×5 (00:07→23:27)
[2016-09-06] MEDS: IPRATROPIUM NEB FS 0.5 MG/2.5 ML AMPUL.NEB IH SCH ×4 (01:40→19:31)
[2016-09-06] MEDS: ALBUTEROL FS 2.5 MG/0.5 ML VIAL.NEB IH SCH ×4 (01:40→19:31)
[2016-09-06] MEDS: diphenhydrAMINE HCL 50 MG/ML VIAL IV PRN (01:59)
[2016-09-06 04:00] VITALS: BP 114/63
[2016-09-06] MEDS: PANTOPRAZOLE 40 MG/PACK PACK GT SCH (05:33)
[2016-09-06] MEDS: MIDODRINE HCL (5MG) 5 MG TABLET PO SCH ×3 (05:34→21:05)
[2016-09-06] MEDS: RENAL NOVASOURCE 1,000 ML BOTTLE GT PRN (05:46)
--- NOTE | 2016-09-06 07:20 | NUR ---
RN NOTES ENDORSED CONTINUITY OF CARE TO AM NURSE. PT REMAINED IN STABLE CONDITION THROUGHOUT THE SHIFT. TRACH AND VENT SETTING TOLERATED WELL. AFEBRILE. TURNED AND REPOSITIONED PROTOCOL AND PRN.. AFEBRILE. PT LOVED TO SCRATCH HER BACK. KEPT CLEAN AND DRY WILL CONTINUE TO MONITOR.
[2016-09-06 07:37] LABS: BASOPHILS # (AUTO) 0.1 /CMM (0.0-0.2); BASOPHILS % (AUTO) 0.9 % (0.0-2.0); EOSINOPHILS # (AUTO) 0.3 /CMM (0.0-0.7); EOSINOPHILS % (AUTO) 4.6 % (0.0-6.0); HEMATOCRIT 27 % (33-45); HEMOGLOBIN 8.9 g/dL (11.5-14.8); LYMPHOCYTES # (AUTO) 1.5 /CMM (0.8-4.8); LYMPHOCYTES % (AUTO) 21.8 % (20.0-44.0); MEAN CORPUSCULAR HEMOGLOBIN 32 PG (26.0-33.0); MEAN CORPUSCULAR HGB CONC 33 g/dl (31.0-36.0); MEAN CORPUSCULAR VOLUME 98 fL (82-100); MONOCYTES # (AUTO) 0.6 /CMM (0.1-1.30); MONOCYTES % (AUTO) 8.8 % (2.0-12.0); NEUTROPHILS # (AUTO) 4.5 /CMM (1.8-8.9); NEUTROPHILS % (AUTO) 63.9 % (43.0-81.0); PLATELET COUNT (AUTO) 168 /CMM (150-450); RDW COEFFICIENT OF VARIATION 18.3 (11.5-15.0); RED BLOOD CELL COUNT(AUTO) 2.75 MIL/uL (4.0-5.2)
--- NOTE | 2016-09-06 07:45 | NUR ---
RN NOTES RECEIVED PT RESTING IN BED, NO ACUTE RESP DISTRESS WITH TRACH PORTEX 8 CONNECTED TO VENT SETTING OF AC 18 TV 500 FIO2 40% PEEP 5, SUCTIONED FOR AIRWAY CLEARANCE. A- FIB HR 75 ON TELE MONITOR. IV SITE ON RIGHT WRIST G 22 INTACT AND PATENT RIGHT CHEST WALL HD CATH INTACT WITH CLEANED DRESSING. NO ACTIVE BLEEDING NOTED. KEPT PT CLEAN AND DRY AND COMFORTABLE IN BED.SAFETY MAINTAINED, CALL LIGHT WITHIN REACH, WILL CONTINUE TO MONITOR.
[2016-09-06 08:00] VITALS: BP 95/40
[2016-09-06 08:05] LABS: CALCIUM, SERUM 8.5 mg/dL (8.5-10.1); CREATININE 1.7 mg/dL (0.6-1.3); MAGNESIUM 2.1 mg/dL (1.8-2.4); PHOSPHORUS 3.5 mg/dL (2.5-4.9); POTASSIUM 3.2 mmol/L (3.5-5.1)
[2016-09-06] MEDS: APIXABAN 2.5 MG TABLET GT SCH ×2 (08:59→18:16)
[2016-09-06] MEDS: SILDENAFIL CITRATE 20 MG TABLET GT SCH ×3 (08:59→17:50)
[2016-09-06] MEDS: VIT B CMPLX 3/FA/VIT C/BIOTIN 1 TAB TABLET PO SCH (08:59)
[2016-09-06] MEDS: LEVETIRACETAM SOL (5 ML) 100 MG/ML UDC GT SCH ×2 (08:59→21:05)
[2016-09-06] MEDS: BUMETANIDE (1 MG) 1 MG TABLET PO SCH (08:59)
[2016-09-06] MEDS: Z GUARD REMEDY 2 OZ OINT TP SCH (08:59)
[2016-09-06] MEDS: DOCUSATE SODIUM LIQ 100 MG/10 ML UDC GT SCH ×2 (08:59→17:50)
[2016-09-06] MEDS: ACETAMINOPHEN 650 MG/20.3 ML UDC GT SCH ×2 (08:59→21:05)
[2016-09-06] MEDS: METOPROLOL TARTRATE 25 MG TABLET GT SCH ×2 (09:00→21:00)
[2016-09-06] MEDS: MUPIROCIN OINT 2% 22 GM TUBE SCH ×2 (09:00→21:06)
[2016-09-06] MEDS: HYDROGEL DRESSING 90 GM TUBE TP SCH (09:00)
[2016-09-06] MEDS: NEOMY SULF/BACITRAC ZN/POLY 15 GM TUBE TP SCH (09:01)
[2016-09-06 12:00] VITALS: BP 100/46
--- NOTE | 2016-09-06 15:22 | NUR ---
RN NOTES CONSENT OTAINED FROM DAUGHTER GUERLINE AT BEDSIDE FOR US GUIDED L SIDE THORACENTESIS
[2016-09-06 15:26] LABS: INR 1.06 (0.87-1.13); PROTHROMBIN TIME 11.4 SECS (9.5-12.7)
[2016-09-06 16:00] VITALS: BP 81/38
--- NOTE | 2016-09-06 17:30 | NUR ---
RN NOTES CALLED [facility], TO FOLLOW UP REGARDING THORACENTESIS PER ROSSI POSSIBLY AMTHEW.
--- NOTE | 2016-09-06 17:50 | NUR ---
PER DR. WATERS OK TO GIVE ELIQUIS TO PATIENT TONIGHT AND HOLD TOMORROW IN AM. TO DO THORA IN LATE AFTERNOON. 1757PM AYLIN MCCLENDON IS AWARE
--- NOTE | 2016-09-06 17:57 | NUR ---
RN NOTES SPOKE WITH ROSSI FROM RADIOLOGY, PER ROSSI SHE SPOKE WITH RADIOLOGIST OK TO GIVE 1700 DOSE OF ELIQUIS, BUT HOLD IT MATHEW AM PRIOR TO THORACENTESIS ON LEFT SIDE.
[2016-09-06 20:00] VITALS: BP 87/40
--- NOTE | 2016-09-06 20:00 | NUR ---
RN INIITAL NOTES RECEIVED PX AWAKE, FOLLOWS SIMPLE COMMANDS MOUTHS WORDS, ON TRACH TO VENT, WITH G TUBE TO TF, TF TOLERATED WELL; PIV PATENT AND INTACT; WITH CARY CATH ON CONNECTED TO BAG BY GRAVITY; BILAT DVT PUMPS ON, HEELS OFFLOADED; RT SUCTIONED PX ORALLY AND TRACHEALLY; REPOSITIONED WITH HOB AT 30 ANGLE; DAUGHTER AT BEDSIDE; A FIB ON MONITOR BUT ALSO GOES TO SR (ON AND OFF) PX DENIED PAIN, SOB, N/V; DISCUSSED PLAN OF CARE.
[2016-09-07] VITALS: BP 91/50
--- NOTE | 2016-09-07 00:40 | NUR ---
RN NOTES CONDITION AND NEURO STATUS UNCHANGED; DENIED PAIN, SOB, N/V; REPOSITIONED; TF TOLERATED.
[2016-09-07] MEDS: IPRATROPIUM NEB FS 0.5 MG/2.5 ML AMPUL.NEB IH SCH ×4 (01:20→19:28)
[2016-09-07] MEDS: ALBUTEROL FS 2.5 MG/0.5 ML VIAL.NEB IH SCH ×4 (01:20→19:28)
[2016-09-07 04:00] VITALS: BP 96/29
[2016-09-07] MEDS: METOCLOPRAMIDE HCL 10 MG/10 ML UDC GT SCH ×3 (05:30→17:00)
[2016-09-07] MEDS: PANTOPRAZOLE 40 MG/PACK PACK GT SCH (05:30)
[2016-09-07] MEDS: MIDODRINE HCL (5MG) 5 MG TABLET PO SCH ×3 (05:30→20:28)
[2016-09-07] MEDS: RENAL NOVASOURCE 1,000 ML BOTTLE GT PRN (05:31)
--- NOTE | 2016-09-07 06:12 | NUR ---
RN NOTES NO ACUTE EVENTS OVERNIGHT; CONDITION AND NEURO STATUS UNCHANGED; PX DENIED PAIN, SOB, N/V, NOT IN DISTRESS; REPOSITIONED IN BED; BEDBATH RENDERED, ORAL AND CARY CARE GIVEN, TRACH CARE AND G-TUBED CARE GIVEN, CHANGED BOTH DRESSINGS; CHANGED DRESSING ON THE SACRAL AREA USING PACKING WITH HYDROGEL AND MEPILEX, ALL PROCEDURES TOLERATED; SUCTIONED ORALLY AND TRACHEALLY; PIV'S PATENT AND INTACT; NO NEW SKIN BREAKDOWN; WILL ENDORSE TO NEXT RN.
--- NOTE | 2016-09-07 07:45 | NUR ---
MATERIAL CUTTER NOTE PATIENT IN BED ,RESTING COMFORTABLY ALL NEEDS ATTENDED WITH TRACH TO VENT SETTING ORDERED, AMBU BAG AT HOB , ON TELE MONITOR AFIB WITH BBB HR 83 WITH F\C TO GRAVITY , ON G TUBE FEEDING ORDERED KEEP HOB ELEVATED AT ALL TIME, RT CW HD CATH IN PLACE ,, RT WRIST HL INTACT , BED IN LOWEST AND LOCKED POSITION NO SOB NOTED , FAMILY AT BEDSIDE WILL CONT TO MONITOR CLOSELY
[2016-09-07 08:00] VITALS: BP 94/54
[2016-09-07] MEDS: ACETAMINOPHEN 650 MG/20.3 ML UDC GT SCH ×2 (08:25→20:25)
[2016-09-07] MEDS: VIT B CMPLX 3/FA/VIT C/BIOTIN 1 TAB TABLET PO SCH (08:25)
[2016-09-07] MEDS: DOCUSATE SODIUM LIQ 100 MG/10 ML UDC GT SCH ×2 (08:25→16:46)
[2016-09-07] MEDS: LEVETIRACETAM SOL (5 ML) 100 MG/ML UDC GT SCH ×2 (08:25→20:25)
[2016-09-07] MEDS: BUMETANIDE (1 MG) 1 MG TABLET PO SCH (08:25)
[2016-09-07] MEDS: SILDENAFIL CITRATE 20 MG TABLET GT SCH ×3 (08:26→16:47)
[2016-09-07] MEDS: APIXABAN 2.5 MG TABLET GT SCH ×2 (08:26→16:47)
[2016-09-07] MEDS: MUPIROCIN OINT 2% 22 GM TUBE SCH ×2 (08:26→20:29)
[2016-09-07] MEDS: METOPROLOL TARTRATE 25 MG TABLET GT SCH ×2 (08:26→20:30)
[2016-09-07] MEDS: NEOMY SULF/BACITRAC ZN/POLY 15 GM TUBE TP SCH (08:27)
[2016-09-07] MEDS: HYDROGEL DRESSING 90 GM TUBE TP SCH (08:27)
[2016-09-07] MEDS: Z GUARD REMEDY 2 OZ OINT TP SCH (08:28)
--- NOTE | 2016-09-07 08:45 | NUR ---
FOIL STAMP OPERATOR NOTE HOLD EPIQUIS PATIENT WILL HAVE THORACENTESIS SOON TODAY
--- NOTE | 2016-09-07 09:03 | NUR ---
DRY ROOM OPERATOR NOTE BP 94/54, MIDODRINE 10 MG VIA G TUBE GIVEN PRIOR HD , HD STARTED ORDERED FAMILY AT BEDSIDE
--- NOTE | 2016-09-07 10:27 | NUR ---
BRICK TENDER NOTE HD COMPLETED, BP 113/60 ,1L OF FLUIDS IS REMOVED ,KEEP CLEAN DRY, REPOSITION DONE ,FAMILY AT BEDSIDE
[2016-09-07 12:00] VITALS: BP 127/69
[2016-09-07 16:00] VITALS: BP 118/61
--- NOTE | 2016-09-07 16:23 | NUR ---
SHORT GOODS DRIER NOTE THORACENTESIS DONE 360 ML FLUIDS WAS REMOVED, CHEST XRAY DONE ORDERED
--- NOTE | 2016-09-07 16:56 | NUR ---
CIVIL DRAFTER NOTE PER DR HAN CONSENT FOR THORACENTESIS OBTAINED DAPHNE HUMPHRIES
--- NOTE | 2016-09-07 17:00 | NUR ---
FLUXER NOTE PER RADIOLOGIST DR KARIN MERCEDES TO HOLD ELIQUIS TODAY AT 1700 AND TOMORROW IN AM 0900 ,PATIENT WILL HAVE THORACENTESIS ,ORDER CARRIED OUT
--- NOTE | 2016-09-07 17:57 | NUR ---
PRINCIPAL NETWORK ENGINEER NOTE RT AT BEDSIDE, ALL NEEDS ATTENDED ,KEEP CLEAN DRY, REPOSITION DONE , CONT GTUBE FEEDING ORDERED , NOT IN ACUTE DISTRESS
--- NOTE | 2016-09-07 19:40 | NUR ---
RN INITIAL NOTE RECEIVED PT IN NO ACUTE DISTRESS IN BED. PT IS A/O X 1 AND ABLE TO MAKE NEEDS KNOWN BY MOUTHING WORDS. PT HAS FAMILY AT BEDSIDE FOR INTERPRETATION. PT IS ON MECHANICAL VENT VIA TRACH. TRACH SITE IS CLEAN DRY INTACT AND PATENT. PT IS ON TELE WITH SR BBB ON THE MONITOR. PT HAS F/C THAT IS CLEAN DRY INTACT AND PATENT WITH CLEAR YELLOW URINE DRAINING. PT HAS G TUBE THAT IS CLEAN DRY INTACT AND PATENT WITH FREE WATER FLUSH. PT HAS R WRIST 22G IV THAT IS CLEAN DRY INTACT AND PATENT. RCW HD CATH THAT IS CLEAN DRY AND INTACT. BED IN LOW LOCK POSITION WITH RAILS UP X 2. CALL LIGHT WITHIN REACH AND ALL SAFETY MEASURES ENSURED AND CARRIED OUT. WILL CONTINUE TO MONITOR PT.
[2016-09-07 20:00] VITALS: BP 94/44
[2016-09-08] VITALS (10 sets, daily range): BP systolic 84–102; BP diastolic 42–51
[2016-09-08] MEDS: METOCLOPRAMIDE HCL 10 MG/10 ML UDC GT SCH ×5 (00:42→23:53)
[2016-09-08] MEDS: ALBUTEROL FS 2.5 MG/0.5 ML VIAL.NEB IH SCH ×4 (01:36→19:31)
[2016-09-08] MEDS: IPRATROPIUM NEB FS 0.5 MG/2.5 ML AMPUL.NEB IH SCH ×4 (01:36→19:31)
[2016-09-08] MEDS: diphenhydrAMINE HCL 50 MG/ML VIAL IV PRN ×3 (02:58→16:47)
[2016-09-08] MEDS: PANTOPRAZOLE 40 MG/PACK PACK GT SCH (05:38)
[2016-09-08] MEDS: MIDODRINE HCL (5MG) 5 MG TABLET PO SCH ×3 (05:39→21:48)
--- NOTE | 2016-09-08 06:46 | NUR ---
RN CLOSING NOTE PT REMAINS IN NO ACUTE DISTRESS IN BED. PT DID NOT HAVE ANY SIGNIFICANT CHANGE IN CONDITION. PT TOLERATED VENT SETTING WELL. WILL ENDORSE TO AM RN FOR CONTINUITY OF CARE.
[2016-09-08 07:36] LABS: BASOPHILS % (AUTO) 0.6 % (0.0-2.0); EOSINOPHILS # (AUTO) 0.1 /CMM (0.0-0.7); EOSINOPHILS % (AUTO) 1.4 % (0.0-6.0); HEMATOCRIT 25 % (33-45); HEMOGLOBIN 8.5 g/dL (11.5-14.8); LYMPHOCYTES # (AUTO) 1.5 /CMM (0.8-4.8); MEAN CORPUSCULAR HEMOGLOBIN 33 PG (26.0-33.0); MEAN CORPUSCULAR HGB CONC 34 g/dl (31.0-36.0); MEAN CORPUSCULAR VOLUME 97 fL (82-100); MONOCYTES # (AUTO) 0.6 /CMM (0.1-1.30); MONOCYTES % (AUTO) 8.4 % (2.0-12.0); NEUTROPHILS # (AUTO) 5.4 /CMM (1.8-8.9); NEUTROPHILS % (AUTO) 70.6 % (43.0-81.0); PLATELET COUNT (AUTO) 162 /CMM (150-450); RDW COEFFICIENT OF VARIATION 17.3 (11.5-15.0); RED BLOOD CELL COUNT(AUTO) 2.61 MIL/uL (4.0-5.2); WHITE BLOOD COUNT (AUTO) 7.6 K/uL (4.3-11.0)
--- NOTE | 2016-09-08 08:00 | NUR ---
RN INITIAL NOTE PT RECEIVED IN BED, NO S/S OF PAIN OR DISCOMFORT. RESTING COMFORTABLY. PT IS ALERT, IS NON VERBAL, MOUTHS WORDS. MAC[place]IAN SPEAKING PT HAS TRACH. PORTEX #8, AC 18, TV 500, FI02 40%, PEEP 5, SATING AT 98%.SCHEDULED FOR LEFT THORACENTESIS, CONSENT DONE. ELIQUIS HELD. RESPIRATIONS ARE EVEN AND UNLABORED. A FIB WITH BUNDLE BRANCH ON TELE MONITOR, HR 90'S. SKIN WARM AND DRY TO TOUCH. CARY CATHETER DRAINING WITH GRAVITY. GTUBE PATENT, NOVASOURCE RUNNING AT 45ML/HR. RIGHT WRIST 22G, SL. FLUSHED AND PATENT. C/D/I. SAFETY MEASURES IN PLACE. BED IN LOCKED LOW POSITION. TWO SIDE RAILS UP. CALL LIGHT WITHIN REACH. WILL CONTINUE TO MONITOR.
[2016-09-08 08:04] LABS: ALBUMIN 1.9 g/dL (3.4-5.0); BILIRUBIN,TOTAL 0.3 mg/dL (0.2-1.0); CALCIUM, SERUM 8.4 mg/dL (8.5-10.1); CREATININE 1.5 mg/dL (0.6-1.3); PHOSPHORUS 2.9 mg/dL (2.5-4.9); POTASSIUM 3.1 mmol/L (3.5-5.1); TOTAL PROTEIN, SERUM 5.8 g/dL (6.4-8.2)
[2016-09-08] MEDS: APIXABAN 2.5 MG TABLET GT SCH ×2 (08:38→17:00)
[2016-09-08] MEDS: METOPROLOL TARTRATE 25 MG TABLET GT SCH ×2 (09:00→21:49)
[2016-09-08] MEDS: LEVETIRACETAM SOL (5 ML) 100 MG/ML UDC GT SCH ×2 (09:00→21:48)
[2016-09-08] MEDS: ACETAMINOPHEN 650 MG/20.3 ML UDC GT SCH ×2 (09:27→21:48)
[2016-09-08] MEDS: DOCUSATE SODIUM LIQ 100 MG/10 ML UDC GT SCH ×2 (09:27→17:00)
[2016-09-08] MEDS: SILDENAFIL CITRATE 20 MG TABLET GT SCH ×3 (09:27→17:00)
[2016-09-08] MEDS: BUMETANIDE (1 MG) 1 MG TABLET PO SCH (09:27)
[2016-09-08] MEDS: VIT B CMPLX 3/FA/VIT C/BIOTIN 1 TAB TABLET PO SCH (09:27)
[2016-09-08] MEDS: Z GUARD REMEDY 2 OZ OINT TP SCH (09:28)
[2016-09-08] MEDS: HYDROGEL DRESSING 90 GM TUBE TP SCH (09:28)
[2016-09-08] MEDS: MUPIROCIN OINT 2% 22 GM TUBE SCH ×2 (09:28→21:51)
[2016-09-08] MEDS: NEOMY SULF/BACITRAC ZN/POLY 15 GM TUBE TP SCH (09:28)
--- NOTE | 2016-09-08 11:00 | NUR ---
RN NOTE RIGHT THORACENTESIS DONE AT BEDSIDE. NO NEED TO SEND FLUID TO LAB PER DR MELÉNDEZ
[2016-09-08] MEDS: CALCITRIOL ORAL SOLUTION 1 MCG/ML NG SCH (14:30)
--- NOTE | 2016-09-08 19:19 | NUR ---
RN CLOSING NOTE PT RESTING IN BED COMFORTABLY, ALL MD ORDERS CARRIED OUT. PT KEPT CLEAN AND DRY. WILL GIVE REPORT TO PM RN FOR [place]NOR.
--- NOTE | 2016-09-08 19:20 | NUR ---
RN NOTES RECEIVED PT AWAKE ON BED ASKED TO SCRATCH HER BACK SON AT BEDSIDE SCRATCHING. NO ACUTE RESP DISTRESS TOLERATED TRACH PORTEX 8 WITH VENT SETTING AC18 TV 500 FIO2 40% PEEP 5 SATING 98% ALAN. BREATH SOUND DIMINISHED. AFIB WITH BBB ON TELE MONITOR. PT IS AOX 2-3 ABLE TO MOUTH WORDS SPEAK KHMER. GTF TOLERATED WELL WITH HOB KEPT ELEVATED. IV SITE ON RIGHT WRIST G 22 INTACT AND PATENT. RCW HD CATH WITH CLEANED DRESSING. KEPT PT CLEANED AND DRY WILL MONITOR CLOSELY.
--- NOTE | 2016-09-08 21:37 | NUR ---
RN NOTES DR. HAN CALLED WITH NEW ORDER TO DO STAT CXR TO CHECKED IF PNEUMOTHORAX INCREASE.
--- NOTE | 2016-09-08 22:27 | NUR ---
DIRECTOR OF RELIGIOUS ACTIVITIES NOTES RECEIVED REPORT FROM [facility] FOR CONTINUITY OF CARE. PATIENT IN STABLE CONDITION. NO RESPIRATORY DISTRESS NOTED. VENT DEPENDENT. AWAKE, ALERT, MOUTHS WORDS. ON TELE MONITOR AFIB CONTROLLED. SON AT BEDSIDE. ISOLATION PRECAUTIONS OBSERVED.WITH F/C DRAINING. RW 22G PATENT AND INTACT. RCW HD CATH IN PLACE. S/P THORACENTESIS TODAY. NO C/O OF PAIN OR DISCOMFORT AT THIS TIME. GT PATENT AND INTACT, TOLERATING GTF. HOB KEPT ELEVATED. SIDE RAILS UP AND LOCKED. BED KEPT AT LOWEST POSITION. CALL LIGHT KEPT WITHIN EASY REACH. WILL CONTINUE TO MONITOR.
[2016-09-09] VITALS (7 sets, daily range): BP systolic 90–111; BP diastolic 45–56
[2016-09-09] MEDS: diphenhydrAMINE HCL 50 MG/ML VIAL IV PRN ×2 (00:02→15:34)
[2016-09-09] MEDS: IPRATROPIUM NEB FS 0.5 MG/2.5 ML AMPUL.NEB IH SCH ×4 (01:49→19:23)
[2016-09-09] MEDS: ALBUTEROL FS 2.5 MG/0.5 ML VIAL.NEB IH SCH ×4 (01:49→19:22)
[2016-09-09] MEDS: METOCLOPRAMIDE HCL 10 MG/10 ML UDC GT SCH ×3 (06:12→17:23)
[2016-09-09] MEDS: MIDODRINE HCL (5MG) 5 MG TABLET PO SCH ×3 (06:13→22:22)
[2016-09-09] MEDS: RENAL NOVASOURCE 1,000 ML BOTTLE GT PRN (06:16)
[2016-09-09] MEDS: PANTOPRAZOLE 40 MG/PACK PACK GT SCH (06:24)
--- NOTE | 2016-09-09 06:47 | NUR ---
DIALYSIS NURSE AT BEDSIDE
--- NOTE | 2016-09-09 07:00 | NUR ---
MAIL HANDLER SORTER CLOSING NOTES NO SIGNIFICANT CHANGES OVERNIGHT. NO RESPIRATORY DISTRESS NOTED. TOLERATED CURRENT VENT SETTINGS. NO C/O SOB. NO C/O PAIN OR DISCOMFORT. TOLERATING GTF, DVT PUMPS IN PLACE. SKIN WARM AND DRY TO TOUCH. DIALYSIS NURSE AT BEDSIDE. HOB KEPT ELEVATED. ISOLATION PRECAUTIONS OBSERVED. KEPT CLEAN AND DRY. TRACH CARE DONE. WOUND TREATMENT DONE ORDERED. SIDE RAILS UP AND LOCKED. BED KEPT AT LOWEST POSITION. CALL LIGHT KEPT WITHIN EASY REACH. CONTINUITY OF CARE ENDORSED TO AM NURSE.
--- NOTE | 2016-09-09 07:15 | NUR ---
RN INITIAL NOTE PT RECEIVED IN BED RESTING COMFORTABLY, ASLEEP. NO S/S OF PAIN OR DISCOMFORT. PT HAS TRACH. PORTEX #8, AC-18, TV-500, FI02-40, PEEP 5. RESPIRATIONS ARE EVEN AND UNLABORED, NO EVIDENCE OF SOB, OR RESPIRATORY DISTRESS. PT IS AFIB ON TELE MONITOR. SKIN WARM, DRY TO TOUCH. RIGHT WRIST IV, 22G SL FLUSHED, PATENT. DRESSING C/D/I. RIGHT CHEST WALL HD CATH. DRESSING C/D/I. GTUBE HAS NO RESIDUAL. NOVASOURCE FEEDING AT 35ML/HR. SAFETY MEASURES IMPLEMENTED AT ALL TIMES. BED IN LOCKED, LOW POSITION. TWO SIDE RAILS UP. ISOLATION PRECAUTIONS OBSERVED AT ALL TIMES. BELONGINGS AND CALL LIGHT WITHIN REACH. WILL CONTINUE TO MONITOR.
[2016-09-09] MEDS: NEOMY SULF/BACITRAC ZN/POLY 15 GM TUBE TP SCH (09:00)
[2016-09-09] MEDS: METOPROLOL TARTRATE 25 MG TABLET GT SCH ×2 (09:00→21:00)
[2016-09-09] MEDS: Z GUARD REMEDY 2 OZ OINT TP SCH (09:00)
[2016-09-09] MEDS: MUPIROCIN OINT 2% 22 GM TUBE SCH ×2 (09:00→22:25)
[2016-09-09] MEDS: DOCUSATE SODIUM LIQ 100 MG/10 ML UDC GT SCH ×2 (09:00→17:23)
[2016-09-09] MEDS: HYDROGEL DRESSING 90 GM TUBE TP SCH (09:00)
[2016-09-09] MEDS: APIXABAN 2.5 MG TABLET GT SCH ×2 (09:53→17:00)
[2016-09-09] MEDS: VIT B CMPLX 3/FA/VIT C/BIOTIN 1 TAB TABLET PO SCH (09:53)
[2016-09-09] MEDS: CALCITRIOL ORAL SOLUTION 1 MCG/ML NG SCH (09:53)
[2016-09-09] MEDS: ACETAMINOPHEN 650 MG/20.3 ML UDC GT SCH ×2 (09:53→22:22)
[2016-09-09] MEDS: BUMETANIDE (1 MG) 1 MG TABLET PO SCH (09:53)
[2016-09-09] MEDS: LEVETIRACETAM SOL (5 ML) 100 MG/ML UDC GT SCH ×2 (09:53→22:22)
[2016-09-09] MEDS: SILDENAFIL CITRATE 20 MG TABLET GT SCH ×3 (09:54→17:00)
--- NOTE | 2016-09-09 17:38 | NUR ---
RN NOTE HELD ELIQUIS PER MD UNTIL AFTER PARACENTESIS
--- NOTE | 2016-09-09 19:01 | NUR ---
RN CLOSING NOTES ALL MD ORDERS CARRIED. PATIENT KEPT CLEAN AND DRY. SAFETY PRECAUTIONS OBSERVED AT ALL TIMES. REPORT WILL BE GIVEN TO PM RN FOR CONNOR.
--- NOTE | 2016-09-09 19:20 | NUR ---
RN NOTES PT ASLEEP WELL ON BED DAUGHTER AT BEDSIDE. NO ACUTE RESP DISTRESS WITH TRACH CONNECTED TO VENT SETTING OF AC 18 TV 500 FIO2 40% PEEP 5 SATING 100% A- FIB WITH BBB HR 81 ON TELE MONITOR GTF TOLERATED WELL PATENCY CHECKED WITH ZERO RESIDUAL. HOB KEPT ELEVATED. IV SITE ON RW G22 INTACT AND PATENT RCW HD CATH WITH CLEANED DRESSING. NO BLEEDING NOTED. OFFLOADED EXT WITH PILLOWS. REDUCED PRESSURE TO BONY PROMINENCE AREA. WILL CONTINUE TO MONITOR.
[2016-09-10] VITALS (7 sets, daily range): BP systolic 79–118; BP diastolic 36–98
[2016-09-10] MEDS: METOCLOPRAMIDE HCL 10 MG/10 ML UDC GT SCH ×5 (00:59→23:38)
[2016-09-10] MEDS: ALBUTEROL FS 2.5 MG/0.5 ML VIAL.NEB IH SCH ×4 (01:15→19:41)
[2016-09-10] MEDS: IPRATROPIUM NEB FS 0.5 MG/2.5 ML AMPUL.NEB IH SCH ×4 (01:15→19:41)
[2016-09-10] MEDS: PANTOPRAZOLE 40 MG/PACK PACK GT SCH (06:42)
[2016-09-10] MEDS: MIDODRINE HCL (5MG) 5 MG TABLET PO SCH ×3 (06:43→21:13)
--- NOTE | 2016-09-10 07:00 | NUR ---
RN INITIAL NOTE PT RECEIVED IN BED RESTING COMFORTABLY, ASLEEP. NO S/S OF PAIN OR DISCOMFORT. PT HAS TRACH. PORTEX #8, AC-18, TV-500, FI02-40, PEEP 5. RESPIRATIONS ARE EVEN AND UNLABORED, NO EVIDENCE OF SOB, OR RESPIRATORY DISTRESS. PT IS AFIB ON TELE MONITOR. SKIN WARM, DRY TO TOUCH. RIGHT WRIST IV, 22G SL FLUSHED, PATENT. DRESSING C/D/I. RIGHT CHEST WALL HD CATH. DRESSING C/D/I. GTUBE CDI. NOVASOURCE FEEDING AT 35ML/HR. SAFETY MEASURES IMPLEMENTED AT ALL TIMES. BED IN LOCKED, LOW POSITION. TWO SIDE RAILS UP. ISOLATION PRECAUTIONS OBSERVED AT ALL TIMES. BELONGINGS AND CALL LIGHT WITHIN REACH. WILL CONTINUE TO MONITOR.
--- NOTE | 2016-09-10 07:15 | NUR ---
RN NOTES PT REMAINED INS TABLE CONDITION THROUGHOUT THE SHIFT. NO SIGNIFICANT CHANGES NOTED. BLOOD PRESSURE STILL IN A LOW SIDE. ASYMPTOMATIC. AFEBRILE. KEPT PT CLEAN AND COMFORTABLE N BED. ALL NEEDS ATTENDED. WILL CONTINUE TO MONITOR. ENDORSED CONTINUITY OF CARE TO AM NURSE,
[2016-09-10] MEDS: VIT B CMPLX 3/FA/VIT C/BIOTIN 1 TAB TABLET PO SCH (08:52)
[2016-09-10] MEDS: SILDENAFIL CITRATE 20 MG TABLET GT SCH ×3 (08:52→17:40)
[2016-09-10] MEDS: BUMETANIDE (1 MG) 1 MG TABLET PO SCH (08:52)
[2016-09-10] MEDS: ACETAMINOPHEN 650 MG/20.3 ML UDC GT SCH ×2 (08:53→21:13)
[2016-09-10] MEDS: METOPROLOL TARTRATE 25 MG TABLET GT SCH ×2 (08:53→21:00)
[2016-09-10] MEDS: LEVETIRACETAM SOL (5 ML) 100 MG/ML UDC GT SCH ×2 (08:53→21:13)
[2016-09-10] MEDS: DOCUSATE SODIUM LIQ 100 MG/10 ML UDC GT SCH ×2 (08:53→17:40)
[2016-09-10] MEDS: diphenhydrAMINE HCL 50 MG/ML VIAL IV PRN (08:57)
[2016-09-10] MEDS: CALCITRIOL ORAL SOLUTION 1 MCG/ML NG SCH (09:01)
[2016-09-10] MEDS: Z GUARD REMEDY 2 OZ OINT TP SCH (09:02)
[2016-09-10] MEDS: APIXABAN 2.5 MG TABLET GT SCH ×3 (09:04→17:42)
[2016-09-10] MEDS: MUPIROCIN OINT 2% 22 GM TUBE SCH ×2 (09:58→21:15)
[2016-09-10] MEDS: HYDROGEL DRESSING 90 GM TUBE TP SCH (09:58)
[2016-09-10] MEDS: NEOMY SULF/BACITRAC ZN/POLY 15 GM TUBE TP SCH (09:59)
--- NOTE | 2016-09-10 19:30 | NUR ---
MANAGER INVENTORY INITIAL NOTE RECEIVED RESTING IN BED. A/O X2, CITIZEN OF [place] SPEAKING AND MOUTHS WORDS. ABLE TO MAKE SOME NEEDS KNOWN. ON MECH VENT AND SATING WELL. TELE- A-FIB 80'S. GTUBE WITHOUT RESIDUAL AND FLUSHING WELL. IV R WRIST PATENT, CLEAN AND FLUSHING WELL. RCW HD CATH CLEAN AND INTACT. ISOLATION PRECAUTIONS OBSERVED. ALL SAFETY MEASURES IN PLACE. CALL LIGHT WITHIN EASY REACH AT ALL TIMES. WILL CONTINUE TO MONITOR.
[2016-09-11] VITALS: BP 90/45
[2016-09-11] MEDS: ALBUTEROL FS 2.5 MG/0.5 ML VIAL.NEB IH SCH ×4 (02:03→19:55)
[2016-09-11] MEDS: IPRATROPIUM NEB FS 0.5 MG/2.5 ML AMPUL.NEB IH SCH ×4 (02:03→19:55)
[2016-09-11 04:00] VITALS: BP 87/40
[2016-09-11] MEDS: METOCLOPRAMIDE HCL 10 MG/10 ML UDC GT SCH ×3 (06:02→16:59)
[2016-09-11] MEDS: RENAL NOVASOURCE 1,000 ML BOTTLE GT PRN (06:02)
[2016-09-11] MEDS: PANTOPRAZOLE 40 MG/PACK PACK GT SCH (06:03)
[2016-09-11] MEDS: MIDODRINE HCL (5MG) 5 MG TABLET PO SCH ×3 (06:03→21:42)
--- NOTE | 2016-09-11 07:00 | NUR ---
DEMOGRAPHER INITIAL NOTE RECEIVED RESTING IN BED. A/O X2, [place] SPEAKING AND MOUTHS WORDS. ABLE TO MAKE SOME NEEDS KNOWN. ON MECH VENT AND SATING WELL. TELE- A-FIB 80'S. GTUBE WITHOUT RESIDUAL AND FLUSHING WELL. IV R WRIST PATENT, CLEAN AND FLUSHING WELL. RCW HD CATH CLEAN AND INTACT. ISOLATION PRECAUTIONS OBSERVED. ALL SAFETY MEASURES IN PLACE. CALL LIGHT WITHIN EASY REACH AT ALL TIMES. WILL CONTINUE TO MONITOR.
--- NOTE | 2016-09-11 07:00 | NUR ---
QUILTING MACHINE HELPER CLOSING NOTE PT REMAINED STABLE DURING SHIFT. NO ACUTE DISTRESS NOTED. NO C/O PAIN. MECH VENT SETTINGS WELL TOLERATED. ISOLATION PRECAUTIONS OBSERVED. ALL SAFETY MEASURES IN PLACE. WILL ENDORSE TO NEXT SHIFT FOR CONNOR.
[2016-09-11 07:10] LABS: BASOPHILS # (AUTO) 0.1 /CMM (0.0-0.2); BASOPHILS % (AUTO) 0.7 % (0.0-2.0); EOSINOPHILS # (AUTO) 0.3 /CMM (0.0-0.7); EOSINOPHILS % (AUTO) 2.8 % (0.0-6.0); HEMATOCRIT 26 % (33-45); HEMOGLOBIN 8.7 g/dL (11.5-14.8); LYMPHOCYTES # (AUTO) 1.5 /CMM (0.8-4.8); LYMPHOCYTES % (AUTO) 17.4 % (20.0-44.0); MEAN CORPUSCULAR HEMOGLOBIN 33 PG (26.0-33.0); MEAN CORPUSCULAR HGB CONC 34 g/dl (31.0-36.0); MEAN CORPUSCULAR VOLUME 97 fL (82-100); MONOCYTES # (AUTO) 0.5 /CMM (0.1-1.30); NEUTROPHILS # (AUTO) 6.5 /CMM (1.8-8.9); NEUTROPHILS % (AUTO) 73.1 % (43.0-81.0); PLATELET COUNT (AUTO) 210 /CMM (150-450); RDW COEFFICIENT OF VARIATION 17.1 (11.5-15.0); RED BLOOD CELL COUNT(AUTO) 2.68 MIL/uL (4.0-5.2); WHITE BLOOD COUNT (AUTO) 8.9 K/uL (4.3-11.0)
[2016-09-11 07:18] LABS: CALCIUM, SERUM 8.4 mg/dL (8.5-10.1); CREATININE 1.9 mg/dL (0.6-1.3); PHOSPHORUS 3.2 mg/dL (2.5-4.9); POTASSIUM 3.2 mmol/L (3.5-5.1)
[2016-09-11 08:00] VITALS: BP 110/40
[2016-09-11] MEDS: MUPIROCIN OINT 2% 22 GM TUBE SCH ×2 (09:00→21:42)
[2016-09-11] MEDS: HYDROGEL DRESSING 90 GM TUBE TP SCH (09:00)
[2016-09-11] MEDS: NEOMY SULF/BACITRAC ZN/POLY 15 GM TUBE TP SCH (09:00)
[2016-09-11] MEDS: Z GUARD REMEDY 2 OZ OINT TP SCH (09:00)
[2016-09-11] MEDS: APIXABAN 2.5 MG TABLET GT SCH ×2 (09:26→16:58)
[2016-09-11] MEDS: CALCITRIOL ORAL SOLUTION 1 MCG/ML NG SCH (09:27)
[2016-09-11] MEDS: DOCUSATE SODIUM LIQ 100 MG/10 ML UDC GT SCH ×2 (09:27→16:39)
[2016-09-11] MEDS: LEVETIRACETAM SOL (5 ML) 100 MG/ML UDC GT SCH ×2 (09:27→21:41)
[2016-09-11] MEDS: BUMETANIDE (1 MG) 1 MG TABLET PO SCH (09:28)
[2016-09-11] MEDS: METOPROLOL TARTRATE 25 MG TABLET GT SCH ×2 (09:28→21:41)
[2016-09-11] MEDS: VIT B CMPLX 3/FA/VIT C/BIOTIN 1 TAB TABLET PO SCH (09:28)
[2016-09-11] MEDS: ACETAMINOPHEN 650 MG/20.3 ML UDC GT SCH ×2 (09:29→21:41)
[2016-09-11] MEDS: diphenhydrAMINE HCL 50 MG/ML VIAL IV PRN ×3 (09:34→22:55)
[2016-09-11] MEDS: SILDENAFIL CITRATE 20 MG TABLET GT SCH ×3 (09:34→16:59)
[2016-09-11 12:00] VITALS: BP 103/61
[2016-09-11] MEDS ORDERED: POTASSIUM CL. PREMIX PERIPHER. 50 ML IV SCH (12:00)
[2016-09-11] MEDS ORDERED: IV SET PRIMARY PUMP SET 1 EA INFUS.SET MC ONE (12:43)
[2016-09-11] MEDS ORDERED: IV NS 0.9% 250 ML IV ONE (12:43)
[2016-09-11] MEDS ORDERED: EPOETIN ALFA (10,000 UNIT) 10,000 UNIT/ML VIAL IV ONE (15:00)
[2016-09-11 16:00] VITALS: BP_SYST 110; BP_SYST 92; BP_DIAS 36; BP_DIAS 40
[2016-09-11] MEDS ORDERED: ONDANSETRON HCL/PF 4 MG/2 ML VIAL IV PRN (18:30)
--- NOTE | 2016-09-11 19:04 | NUR ---
RN INITIAL NOTES RECEIVED PATIENT IN BED, SLEEPING COMFORTABLY. PATIENT'S SON AT BEDSIDE, UPDATED WITH PLAN OF CARE NEEDED. PATIENT NOT IN ANY FORM OF DISTRESS. ON TELE MONITORING, AFIB WITH BBB, HR OF 86. WITH MECH VENT VIA TRACH, C/D/I, AIRWAY SUCTIONED NEEDED. GT IN PLACE, C/D/I, FLUSHED AND KEPT PATENT. FEEDING INFUSING WELL, NO GASTRIC RESIDUAL NOTED. F/C INTACT AND DRAINING WELL WITH YELLOW URINE. R WRIST PIV G22, FLUSHED AND PATENT. R CHESTWALL HD CATH WITH DRESSING INTACT, NO DRAINAGE NOTED. PATIENT'S NEEDS ANTICIPATED AND MET. SAFETY AND COMFORT ENSURED. ISOLATION PRECAUTION OBSERVED. CALL LIGHT IN REACH. WILL MONITOR.
[2016-09-11 20:00] VITALS: BP 93/51
--- NOTE | 2016-09-11 20:00 | NUR ---
RN NOTES PATIENT WAS TURNED AND REPOSITIONED AT THIS TIME. UPON TURNING AND REPOSITIONING THE PATIENT, IT WAS NOTED THAT THE PATIENT HAD A SKIN BREAKDOWN ON THE PATIENT'S R LOWER BACK AREA, NO BLEEDING AND NO DISCHARGE NOTED. LINEAR SCRATCH NOTED ON THE UPPER PORTION AND A PARTIAL THICKNESS LOSS NOTED DISTAL TO IT, MEASURING 0.8cm x 0.4cm x 0.2cm. INITIAL WOUND TREATMENT RENDERED, CLEANSED AND KEPT CLEAN AND DRY, COVERED WITH MEPILEX FOR SKIN PROTECTION. PATIENT'S SON AT BEDSIDE AT THIS TIME, MADE AWARE OF THE SKIN BREAKDOWN. CN MADE AWARE. WOUND CONSULT ORDERED. TX ORDERED. WILL CLOSELY MONITOR PATIENT FOR ANY FURTHER SKIN ISSUES. ISOFLEX MATTRESS IN PLACE. WILL TURN AND REPOSITION PATIENT FREQUENTLY. Addendum: 09/12/16 at 0040 by TRISHA OLIVA RN PICTURE TAKEN AND FILED IN CHART.
[2016-09-12] VITALS: BP 92/57
[2016-09-12] MEDS: METOCLOPRAMIDE HCL 10 MG/10 ML UDC GT SCH ×4 (00:49→17:15)
--- NOTE | 2016-09-12 01:04 | NUR ---
AWAKE,ALERT, VOMITTING AT TIMES. SON IS AT BEDSIDE. TOLERATING CURRENT VENTILATOR SETTINGS.B/S ARE EQUAL CRACKLES,SECRETIONS,YELLOWISH.POWER PLUGGED TO RED WALL OUTLET. VENTILATOR ALARM ARE AUDIBLE AND FUNCTIONAL. CONTINUE VENTILATOR SUPPORT. JASMINA LAM Addendum: 09/12/16 at 0108 by DEVEN COKER RT Amended: Links added.
[2016-09-12] MEDS: ALBUTEROL FS 2.5 MG/0.5 ML VIAL.NEB IH SCH ×3 (01:39→14:05)
[2016-09-12] MEDS: IPRATROPIUM NEB FS 0.5 MG/2.5 ML AMPUL.NEB IH SCH ×3 (01:40→14:05)
[2016-09-12 04:00] VITALS: BP 90/48
[2016-09-12] MEDS: MIDODRINE HCL (5MG) 5 MG TABLET PO SCH ×2 (06:14→12:20)
[2016-09-12] MEDS: PANTOPRAZOLE 40 MG/PACK PACK GT SCH (06:14)
[2016-09-12] MEDS: RENAL NOVASOURCE 1,000 ML BOTTLE GT PRN (06:14)
--- NOTE | 2016-09-12 07:05 | NUR ---
RN CLOSING NOTES PATIENT IN BED, WITH NO ACUTE DISTRESS OBSERVED OVERNIGHT. PATIENT'S AIRWAY SUCTIONED NEEDED. ORAL CARE RENDERED. TRACH CARE DONE. TOLERATED GT FEEDING WELL, NO GASTRIC RESIDUAL NOTED, NO EMESIS NOTED. REMAINS AFIB WITH BBB ON TELE MONITOR. PATIENT TURNED AND REPOSITIONED [id number]. PATIENT'S NEEDS ANTICIPATED AND MET. SAFETY AND COMFORT ENSURED. BED IN LOW AND LOCKED POSITION. WILL ENDORSE ACCORDINGLY FOR CONTINUITY OF CARE.
[2016-09-12 07:06] LABS: BASOPHILS % (AUTO) 0.4 % (0.0-2.0); EOSINOPHILS # (AUTO) 0.2 /CMM (0.0-0.7); EOSINOPHILS % (AUTO) 2.8 % (0.0-6.0); HEMATOCRIT 26 % (33-45); HEMOGLOBIN 8.7 g/dL (11.5-14.8); LYMPHOCYTES # (AUTO) 1.4 /CMM (0.8-4.8); LYMPHOCYTES % (AUTO) 17.4 % (20.0-44.0); MEAN CORPUSCULAR HEMOGLOBIN 32 PG (26.0-33.0); MEAN CORPUSCULAR HGB CONC 33 g/dl (31.0-36.0); MEAN CORPUSCULAR VOLUME 97 fL (82-100); MONOCYTES # (AUTO) 0.7 /CMM (0.1-1.30); MONOCYTES % (AUTO) 8.2 % (2.0-12.0); NEUTROPHILS # (AUTO) 5.7 /CMM (1.8-8.9); NEUTROPHILS % (AUTO) 71.2 % (43.0-81.0); PLATELET COUNT (AUTO) 208 /CMM (150-450)
[2016-09-12 07:27] LABS: CALCIUM, SERUM 8.4 mg/dL (8.5-10.1); CREATININE 1.7 mg/dL (0.6-1.3); PHOSPHORUS 2.9 mg/dL (2.5-4.9); POTASSIUM 3.1 mmol/L (3.5-5.1)
--- NOTE | 2016-09-12 07:40 | NUR ---
RN INITIAL NOTES: Received patient on bed during rounds, asleep but easily arousable, alert and oriented x2-3, uzbek speaking, able to make needs known at times, able to mouthwords, needs anticipated and attended. With right wrist G22 Sl, Left wrist G22 SL, flushed with NS and patent. With Vent and trach setting are the following AC 18 TV 500 FIO2 40% Peep5 saturating well at 100%. NPO maintained. With Gtube in placed, no residual noted, checked for patency, Novasource at 35cc/hr tolerating well, no residual noted. NO SOB, No LOC, respirations are even and unlabored, no acute distress noted. Kept clean and dry. Provided safety and comfort measures. Bed low and locked position, fall precaution observed. Will turn and reposition, offload heels as per protocol. Suction secretions PRN. To continue to monitor accordingly.
[2016-09-12 08:00] VITALS: BP 93/47
[2016-09-12] MEDS: METOPROLOL TARTRATE 25 MG TABLET GT SCH (08:52)
[2016-09-12] MEDS: APIXABAN 2.5 MG TABLET GT SCH ×2 (08:52→17:15)
[2016-09-12] MEDS: DOCUSATE SODIUM LIQ 100 MG/10 ML UDC GT SCH ×2 (08:52→17:15)
[2016-09-12] MEDS: LEVETIRACETAM SOL (5 ML) 100 MG/ML UDC GT SCH (08:52)
[2016-09-12] MEDS: BUMETANIDE (1 MG) 1 MG TABLET PO SCH (08:53)
[2016-09-12] MEDS: VIT B CMPLX 3/FA/VIT C/BIOTIN 1 TAB TABLET PO SCH (08:53)
[2016-09-12] MEDS: ACETAMINOPHEN 650 MG/20.3 ML UDC GT SCH (08:53)
[2016-09-12] MEDS: CALCITRIOL ORAL SOLUTION 1 MCG/ML NG SCH (08:53)
[2016-09-12] MEDS: SILDENAFIL CITRATE 20 MG TABLET GT SCH ×5 (08:54→17:00)
[2016-09-12] MEDS: Z GUARD REMEDY 2 OZ OINT TP SCH (08:56)
[2016-09-12] MEDS: NEOMY SULF/BACITRAC ZN/POLY 15 GM TUBE TP SCH (08:57)
[2016-09-12] MEDS: MUPIROCIN OINT 2% 22 GM TUBE SCH (08:57)
[2016-09-12] MEDS: HYDROGEL DRESSING 90 GM TUBE TP SCH (08:58)
[2016-09-12 12:00] VITALS: BP 90/57
[2016-09-12] MEDS ORDERED: POTASSIUM CHLORIDE 20 MEQ POWDER PACKET GT ONE (12:00)
--- NOTE | 2016-09-12 15:55 | NUR ---
RN NOTES: Seen and examined by Dr. Blank Dickey with orders noted and carried out, For dc today back to [facility], report given to AYLIN Espinal. All queries answered. IV Plug over left and right wrist removed, slight pressure dressing applied, no bleeding noted. Wound care done.Patient son informed of going back to SNF and agreeable.
[2016-09-12 16:00] VITALS: BP 92/45
--- NOTE | 2016-09-12 17:36 | NUR ---
Rn NOTES: Patient left the unit at this time with son and accompanied by RT and EMT x2 in stable condition via gurney. No signs of respiratory distress, report given to EMT. Due medications given as ordered. Dc packet form given to EMT, signed and verbalized understanding of report.
== END 2016-09-12 17:33 | DRG 981 ==
LOC: ER 20:49 → TELE-TD 22:31 → TELE1 09-01 08:17
PROVIDERS: ADMIT Internal Medicine Nephrology; ATTEND Internal Medicine Nephrology
PROC: 5A1955Z Respiratory Ventilation, Greater than 96 Consecutive Hours (ICD-10-PCS; principal; 2016-08-31)
PROC: 0W9G3ZZ Drainage of Peritoneal Cavity, Percutaneous Approach (ICD-10-PCS; 2016-09-01)
PROC: 30233N1 Transfusion of Nonautologous Red Blood Cells into Peripheral Vein, Percutaneous Approach (ICD-10-PCS; 2016-09-01)
PROC: 0KBP0ZZ Excision of Left Hip Muscle, Open Approach (ICD-10-PCS; 2016-09-02)
PROC: 0KBN0ZZ Excision of Right Hip Muscle, Open Approach (ICD-10-PCS; 2016-09-02)
PROC: 0W993ZZ Drainage of Right Pleural Cavity, Percutaneous Approach (ICD-10-PCS; 2016-09-02)
PROC: 5A1D60Z (ICD-10-PCS; 2016-09-05)
PROC: 0W9B3ZZ Drainage of Left Pleural Cavity, Percutaneous Approach (ICD-10-PCS; 2016-09-07)
PROC: 0W993ZZ Drainage of Right Pleural Cavity, Percutaneous Approach (ICD-10-PCS; 2016-09-08)
DX: K74.60 Unspecified cirrhosis of liver (principal); N18.6 End stage renal disease; L89.154 Pressure ulcer of sacral region, stage 4; I12.0 Hypertensive chronic kidney disease with stage 5 chronic kidney disease or end stage renal disease; J96.11 Chronic respiratory failure with hypoxia; R18.8 Other ascites; Z99.11 Dependence on respirator [ventilator] status; J90 Pleural effusion, not elsewhere classified; D68.9 Coagulation defect, unspecified; J98.11 Atelectasis; E11.22 Type 2 diabetes mellitus with diabetic chronic kidney disease; G40.909 Epilepsy, unspecified, not intractable, without status epilepticus; Z86.73 Personal history of transient ischemic attack (TIA), and cerebral infarction without residual deficits; Z93.0 Tracheostomy status; Z99.2 Dependence on renal dialysis; I48.91 Unspecified atrial fibrillation; I27.2 Other secondary pulmonary hypertension; K21.9 Gastro-esophageal reflux disease without esophagitis; Z93.1 Gastrostomy status; E87.70 Fluid overload, unspecified; D64.9 Anemia, unspecified; E78.5 Hyperlipidemia, unspecified; I95.89 Other hypotension; L89.629 Pressure ulcer of left heel, unspecified stage; R13.10 Dysphagia, unspecified; Z66 Do not resuscitate; Z79.01 Long term (current) use of anticoagulants
CPT/HCPCS: 31720; 36415; 71010-TC; 76942-TC; 80048-TC; 80053-TC; 80076-TC; 82272-TC; 82306; 82378; 82728-TC; 82746; 83010; 83540-TC; 83615-TC; 83735-TC; 84100-TC; 84443-TC; 84550-TC; 85025-TC; 85045-TC; 85610-TC; 85730-TC; 86850-TC; 86921-TC; 87070-TC; 87081-TC; 88305-TC; 88312-TC; 89051-TC; 90935-TC; 94002-TC; 94003-TC; 99082-TC; A4216; A4606; A6248; A6253; A6402; A6403; J0885; J1200; J1953; J2405; J3480; J7050; J8597; P9016-BL; P9047; Z7610

== ENCOUNTER 2016-09-20 19:26 | Inpatient (IN) | payer MEDICARE, OTHER ==
[~2016-09-20] VITALS: Ht 165.1 cm; Wt 57.6 kg
[~2016-09-20 19:26] MED LIST changes: -DILT30TA14 PO
--- NOTE | 2016-09-20 19:40 | NUR ---
[facility] bed 6 a 80 [facility]/o abdominal distention. Per ems patient is having weekly paracentesis and dialysis TTHSa. Patient is aaox2, no s/s of acute distress. With trach to mech vent, cheryl settings well with o2 sat at 99%. Patent airway maintained. Kept hob elevated. VSS. afebrile. Inititiated comfort measures. Awaiting for er md pena.
--- NOTE | 2016-09-20 19:41 | NUR ---
Dr Diane at bedside.
--- NOTE | 2016-09-20 19:45 | NUR ---
started a saline lock on the lfa g20, blood drawn and sent to lab.
[2016-09-20 19:46] VITALS: BP 122/60
[2016-09-20 19:54] LABS: BASOPHILS # (AUTO) 0.1 /CMM (0.0-0.2); BASOPHILS % (AUTO) 0.9 % (0.0-2.0); EOSINOPHILS # (AUTO) 0.5 /CMM (0.0-0.7); EOSINOPHILS % (AUTO) 5.4 % (0.0-6.0); HEMATOCRIT 28 % (33-45); HEMOGLOBIN 9.2 g/dL (11.5-14.8); LYMPHOCYTES # (AUTO) 2.3 /CMM (0.8-4.8); LYMPHOCYTES % (AUTO) 24.1 % (20.0-44.0); MEAN CORPUSCULAR HEMOGLOBIN 33 PG (26.0-33.0); MEAN CORPUSCULAR HGB CONC 33 g/dl (31.0-36.0); MEAN CORPUSCULAR VOLUME 99 fL (82-100); MONOCYTES # (AUTO) 0.5 /CMM (0.1-1.30); MONOCYTES % (AUTO) 5.7 % (2.0-12.0); NEUTROPHILS # (AUTO) 6.2 /CMM (1.8-8.9); NEUTROPHILS % (AUTO) 63.9 % (43.0-81.0); PLATELET COUNT (AUTO) 260 /CMM (150-450); RED BLOOD CELL COUNT(AUTO) 2.81 MIL/uL (4.0-5.2); WHITE BLOOD COUNT (AUTO) 9.6 K/uL (4.3-11.0)
--- NOTE | 2016-09-20 19:56 | NUR ---
cx at bedside.
[2016-09-20 20:05] LABS: ALBUMIN 2.2 g/dL (3.4-5.0); CALCIUM, SERUM 9.5 mg/dL (8.5-10.1); CREATININE 1.6 mg/dL (0.6-1.3); POTASSIUM 3.5 mmol/L (3.5-5.1)
[2016-09-20 20:06] LABS: INR 1.12 (0.87-1.13); PROTHROMBIN TIME 11.8 SECS (9.5-12.7)
[2016-09-20 20:23] LABS: BILIRUBIN,DIRECT 0.1 mg/dL (0.0-0.2); BILIRUBIN,TOTAL 0.2 mg/dL (0.2-1.0); TOTAL PROTEIN, SERUM 6.7 g/dL (6.4-8.2)
[2016-09-20] MEDS ORDERED: BUME1TAB4 GT (22:05)
[2016-09-20] MEDS ORDERED: OMEP40CA37 GT (22:05)
[2016-09-20] MEDS ORDERED: CALC0.253 GT (22:05)
--- NOTE | 2016-09-20 22:21 | NUR ---
report given to anisha VIERA for yassine.
[2016-09-20 22:45] VITALS: BP 120/58
--- NOTE | 2016-09-20 22:50 | NUR ---
Transported to [facility] bed 310-2 via [facility] protocol, no incident noted. no further complaints.
--- NOTE | 2016-09-20 23:00 | NUR ---
RN ADMITTING NOTES RECEIVED REPORT FROM BARREL BRIDGE ASSEMBLERRUDY. Pt ARRIVED ON FLOOR VIA GURNEY. Pt A/OX2, ERITREAN SPEAKING. ON VENT. VENT SETTINGS: PORTEX #8, FIO2 40%, RATE 18, PEEP 5, TV 500. PERMACATH RCW FOR HD. IV ACCESS ON LFA #20G, SL. SCHEDULED FOR A US GUIDED PARACENTESIS IN THE AM 09/21/16. DAUGHTER AT BEDSIDE. NO S/S OF ACUTE DISTRESS OR SOB NOTED. SAFETY MEASURES IN PLACE. BED LOW, LOCKED, HOB ELEVATED, SIDE RAILS UP, CALL LIGHT AND BEDSIDE TABLE WITHIN REACH. WILL CONTINUE TO MONITOR Pt THROUGHOUT THE NIGHT.
--- NOTE | 2016-09-20 23:08 | NUR ---
PT RCVD ON [facility] VENT WITH NOTED SETTINGS. VENT ALARM CHECKED AND AUDIBLE . VENT PLUGGED INTO RED OUTLET. TRACH SECURE IN AND IN PROPER POSITION. CUFF CHECKED TECHNICAL SERVICE REP. SXN SMALL AMOUNT OF WHITE THIN SECRETIONS. AMBU BAG @ BEDSIDE. NO RESPIRATORY DISTRESS AT THIS TIME. WILL CONTINUE TO MONITOR.
[2016-09-21] VITALS (8 sets, daily range): BP systolic 92–107; BP diastolic 46–60
[2016-09-21] MEDS ORDERED: RENAL NOVASOURCE 1,000 ML BOTTLE GT SCH (01:00)
[2016-09-21] MEDS ORDERED: RENAL NOVASOURCE 1,000 ML BOTTLE ONE (02:38)
--- NOTE | 2016-09-21 06:35 | NUR ---
RN CLOSING NOTES NO SIGNIFICANT CHANGES DURING THE NOTE. NO S/S OF ACUTE DISTRESS OR SOB NOTED. ALL NEEDS MET AND ATTENDED TO. SAFETY MEASURES IN PLACE. WILL ENDORSE TO DAYSHIFT RN FOR Pt's CONNOR.
[2016-09-21 07:16] LABS: BASOPHILS # (AUTO) 0.1 /CMM (0.0-0.2); BASOPHILS % (AUTO) 0.8 % (0.0-2.0); EOSINOPHILS # (AUTO) 0.4 /CMM (0.0-0.7); EOSINOPHILS % (AUTO) 5.8 % (0.0-6.0); HEMATOCRIT 25 % (33-45); HEMOGLOBIN 8.4 g/dL (11.5-14.8); LYMPHOCYTES # (AUTO) 1.9 /CMM (0.8-4.8); MEAN CORPUSCULAR HEMOGLOBIN 33 PG (26.0-33.0); MEAN CORPUSCULAR HGB CONC 33 g/dl (31.0-36.0); MEAN CORPUSCULAR VOLUME 98 fL (82-100); MONOCYTES # (AUTO) 0.4 /CMM (0.1-1.30); MONOCYTES % (AUTO) 6.2 % (2.0-12.0); NEUTROPHILS % (AUTO) 59.2 % (43.0-81.0); PLATELET COUNT (AUTO) 230 /CMM (150-450); RDW COEFFICIENT OF VARIATION 18.2 (11.5-15.0); RED BLOOD CELL COUNT(AUTO) 2.57 MIL/uL (4.0-5.2); WHITE BLOOD COUNT (AUTO) 6.8 K/uL (4.3-11.0)
--- NOTE | 2016-09-21 07:30 | NUR ---
TYING MACHINE OPERATOR LUMBER OPENING RECEIVED PATIENT A/OX3 NON VERBAL BUT WILL ANSWER YES NO QUESTIONS DUE TO TRACH/MECH VENT. SETTING ORDERED NO COMPLICATIONS. PATIENT REPOSITIONED WITH HEELS AND ELBOWS OFFLOADED. PATIENT NO S/S SOB, DIFFICULTY BREATHING OR PAIN. PATIENT PLACED IN POSITION OF COMFORT. RAILS UPX3 FOR SAFETY WITH BED ALARM ON AND WILL ROUND Q2HOR LESS PER NEEDS
[2016-09-21 07:50] LABS: CALCIUM, SERUM 8.8 mg/dL (8.5-10.1); CREATININE 1.6 mg/dL (0.6-1.3); PHOSPHORUS 3.5 mg/dL (2.5-4.9); POTASSIUM 3.4 mmol/L (3.5-5.1)
[2016-09-21] MEDS: RENAL NOVASOURCE 1,000 ML BOTTLE GT SCH (08:42)
--- NOTE | 2016-09-21 09:55 | NUR ---
MS RN NOTES PATIENT WAS BEING REPOSITIONED FROM WOUND CARE EVAL. PATIENT PULLED OUT? OR POSITION CHANGE FROM RN PULLED OUT G TUBE UNKNOWN. CARY PLACED IN SITE TO PREVENT CLOSURE. CALLED MD OFFICE LEFT MESSAGE WITH WHOM THEY WOULD LIKE CONSULT WITH FOR GI. FEEDINGS HELD.
[2016-09-21] MEDS ORDERED: ALBUTEROL FS 2.5 MG/0.5 ML VIAL.NEB IH PRN (10:00)
[2016-09-21] MEDS ORDERED: ACETAMINOPHEN 650 MG/20.3 ML UDC GT PRN (10:00)
[2016-09-21] MEDS ORDERED: NUTRITIONAL SUPPLEMENT GT SCH (10:00)
[2016-09-21] MEDS ORDERED: ASCORBIC ACID 500 MG TABLET PO SCH (10:00)
[2016-09-21] MEDS ORDERED: [UNRECOGNIZED DRUG - OTHER] TP SCH (10:00)
[2016-09-21] MEDS: DOCUSATE SODIUM LIQ 100 MG/10 ML UDC GT SCH ×2 (10:00→17:50)
[2016-09-21] MEDS: METOPROLOL TARTRATE 25 MG TABLET GT SCH ×2 (10:00→21:00)
[2016-09-21] MEDS ORDERED: IPRATROPIUM NEB FS 0.5 MG/2.5 ML AMPUL.NEB IH PRN (10:00)
[2016-09-21] MEDS ORDERED: ZINC SULFATE 220 MG CAPSULE PO SCH (10:04)
--- NOTE | 2016-09-21 10:26 | NUR ---
WOUND CARE CONSULT: PATIENT SEEN AND SKIN ASSESSMENT DONE. TRACH VENT DEPENDENT PATIENT, UNABLE TO TURN AND REPOSITION SELF IN BED, INCONTINENT OF STOOLS, ON HD. PATIENT NOTED TO BE SCRATCHING FREQUENTLY, TOUCHING HER TRACH AND ABDOMEN, ABLE TO USE BUE. DENISE Choe, NURSING STAFF ORDERED KOBE ISOFLEX WARREN BED AND WILL BE PLACED WHEN AVAILABLE IN THE UNIT. PATIENT HAS A GT, ON GT FEEDING. DURING PATIENT REPOSITIONING FOR SKIN ASSESSMENT, GT GOT ACCIDENTALLY PULLED OUT. MD DR. HAN WAS IN AND ORDERED TO PLACE F/C TEMPORARILY. GI CONSULT WAS CALLED BY RN. INSERTED F/C WAS CHECKED FOR PLACEMENT, GT RESIDUAL WAS OBTAINED AND F/C CLAMPED. SEE TODAY'S SKIN ASSESSMENT ALONG WITH RECOMMENDATIONS. RECOMMEND MOISTURE PROTECTION WITH Z GUARD ORDERED, PRESSURE PREVENTION MEASURES, TURN AND REPOSITION EVERY 2 HRS PATIENT CONDITION PERMITS, OFFLOAD BOTH HEELS. ALL RECOMMENDATIONS DISCUSSED WITH NURSING STAFF. IN AGREEMENT WITH PLAN OF CARE. Addendum: 09/21/16 at 1040 by YESY CORDOVA WNDNU Amended: Links added.
[2016-09-21] MEDS ORDERED: ONDANSETRON 4 MG TAB.RAPDIS GT PRN (10:30)
[2016-09-21] MEDS ORDERED: LACTULOSE 10 G/15 ML UDC (PYXIS) GT PRN (10:30)
[2016-09-21] MEDS ORDERED: SECONDARY IV SET 1 EA INFUS.SET MC ONE (11:16)
[2016-09-21] MEDS: ALBUMIN 25% 25 GM in PREMIX 1 EA IV PRN ×2 (11:31→12:11)
--- NOTE | 2016-09-21 11:59 | NUR ---
SOCIAL WORK LECTURER NOTES DR MOTA SAW PATIENT AND PHONE CONSENT OBTAINED FROM RAYMOND BLEDSOE FOR REPLACING G TUBE. DR MOTA REPLACED WITH 22G PEG TUBE. NO COMPLICATIONS. KUB ORDERED TO CHECK FOR PLACEMENT PRIOR TO USING AND RESUMING FEEDINGS. PATIENT IS STILL CURRENTLY RECEIVING HD AND PARACENTESIS COMPLETED NO COMPLICATIONS.
[2016-09-21] MEDS: METOCLOPRAMIDE HCL 10 MG/10 ML UDC GT SCH ×2 (12:00→17:51)
--- NOTE | 2016-09-21 12:08 | NUR ---
COURT USHER NOTES MESSAGE TO DR GOSS FOR CONSULT
[2016-09-21] MEDS ORDERED: DIATR MEGLU/DIATRIZOATE SODIUM 30 ML BOTTLE (GASTROGRAPHIN) ONE (12:25)
[2016-09-21] MEDS: HYDROGEL DRESSING 90 GM TUBE TP SCH (12:55)
[2016-09-21] MEDS: Z GUARD REMEDY 2 OZ OINT TP SCH (12:56)
[2016-09-21] MEDS: SILDENAFIL CITRATE 20 MG TABLET GT SCH ×2 (13:00→18:00)
--- NOTE | 2016-09-21 13:30 | NUR ---
SUPERVISOR OF COMMUNICATIONS NOTES NOTIFIED DR PAWEL SU PATIENT IS C/O ITCHING. PER MD SCHUSTER GT BENADRYL 25MG PRN Q6H
[2016-09-21] MEDS ORDERED: EPOETIN ALFA (10,000 UNIT) 10,000 UNIT/ML VIAL SQ ONE (14:00)
[2016-09-21] MEDS: IPRATROPIUM NEB FS 0.5 MG/2.5 ML AMPUL.NEB IH SCH ×2 (14:34→19:56)
[2016-09-21] MEDS: ALBUTEROL FS 2.5 MG/0.5 ML VIAL.NEB IH SCH ×2 (14:34→19:57)
--- NOTE | 2016-09-21 14:57 | NUR ---
THERMITE WELDER NOTES AWAITING X RAY RESULTS TO START USING G TUBE; RESUME FEEDINGS AND MEDICATIONS
[2016-09-21] MEDS: MUPIROCIN OINT 2% 22 GM TUBE SCH ×2 (15:50→22:11)
[2016-09-21] MEDS: BUMETANIDE (1 MG) 1 MG TABLET GT SCH (17:50)
[2016-09-21] MEDS: diphenhydrAMINE HCL ELIX 25 MG/10 ML UDC GT PRN (17:50)
[2016-09-21] MEDS: LEVETIRACETAM SOL (5 ML) 100 MG/ML UDC GT SCH ×2 (17:50→22:09)
[2016-09-21] MEDS: CALCITRIOL 0.25 MCG CAPSULE GT SCH (17:50)
--- NOTE | 2016-09-21 17:50 | NUR ---
SLIP FEEDER NOTES PATIENT C/O ITCHY. PRN BENADRYL GIVEN THROUGH G TUBE. G TUBE FLUSHING WELL. ASCULTATED AND ASPIRATED
[2016-09-21] MEDS: VIT B CMPLX 3/FA/VIT C/BIOTIN 1 TAB TABLET GT SCH (17:51)
[2016-09-21] MEDS: PROSOURCE / PROSTAT (PYXIS) 30 ML UDC GT SCH (17:51)
[2016-09-21] MEDS: PANTOPRAZOLE 40 MG/PACK PACK GT SCH (17:51)
[2016-09-21] MEDS: MIDODRINE HCL (5MG) 5 MG TABLET GT SCH ×2 (17:52→22:10)
--- NOTE | 2016-09-21 18:20 | NUR ---
ENTOMOLOGY PROFESSOR NOTES G TUBE PLACEMENT VERIFIED. RESUMED MEDICATIONS ORDERED AND FEEDING ORDERED. SITE STILL LOOKS INFLAMED AND REDDENED SINCE ADMISSION
--- NOTE | 2016-09-21 19:36 | NUR ---
GROCERY CLERK SELLING CLOSING PATIENT STABLE NO SOB, DIFFICULTY BREATHING OR PAIN. G TUBE SITE FLUSHING WELL AND FEEDING RESUMED ORDERED. PATIENT G TUBE SITE CLEANSED AND MONITORED. PATIENT TURNED Q2H AND HEELS AND ELBOWS OFFLADED THROUGHOUT THE DAY. WOUND CARE COMPLETED PRN AND ORDERED. PATIENT WITH RAILS UPX3 FOR SAFETY, BED ALARM ON, IN POSITION OF COMFORT. CARE ENDORSED TO RN FOR CONNOR
--- NOTE | 2016-09-21 19:40 | NUR ---
RN OPENING NOTES RECEIVED REPORT FROM JENNIFER GARCIA RN. FOUND Pt AWAKE IN BED. SON VISITING AT BEDSIDE. NO S/S OF ACUTE DISTRESS OR SOB NOTED. Pt IS A/OX2-3, NONVERBAL, BUT CAN MOUTH WORDS, ECUADORE[place] SPEAKING. VENT SETTINGS: PORTEX #8, FIO2 40%, PEEP 5, TV 500. HD DONE TODAY, 1.7L OUT. PARACENTESIS DONE TODAY, 3L OUT. IV ACCESS ON LFA #20G, SL. SAFETY MEASURES IN PLACE. BED LOW, LOCKED, HOB ELEVATED, SIDE RAILS UP, CALL LIGHT WITHIN REACH. WILL CONTINUE TO MONITOR Pt THROUGHOUT THE NIGHT FOR SAFETY.
--- NOTE | 2016-09-21 19:55 | NUR ---
Unique Id: [id number]
[2016-09-21] MEDS: ACETAMINOPHEN 650 MG/20.3 ML UDC GT SCH (22:09)
[2016-09-22] VITALS (12 sets, daily range): BP systolic 69–97; BP diastolic 36–48
[2016-09-22] MEDS: METOCLOPRAMIDE HCL 10 MG/10 ML UDC GT SCH ×4 (00:21→17:21)
[2016-09-22] MEDS: diphenhydrAMINE HCL ELIX 25 MG/10 ML UDC GT PRN (00:43)
[2016-09-22] MEDS: ALBUTEROL FS 2.5 MG/0.5 ML VIAL.NEB IH SCH ×4 (01:21→19:41)
[2016-09-22] MEDS: IPRATROPIUM NEB FS 0.5 MG/2.5 ML AMPUL.NEB IH SCH ×4 (01:21→19:41)
--- NOTE | 2016-09-22 02:21 | NUR ---
RN NOTES ENDORSED TO CARLOS EDUARDO VIERA FOR Pt's CONNOR
--- NOTE | 2016-09-22 02:25 | NUR ---
RECEIVED PATIENT IN RESTING COMFORTABLY, CALM, NO RESPIRATORY DISTRESS, VENTILATOR DEPENDENT, TRACH DRESSING IS CLEAN, ABDOMEN IS SOFT, S/P PARACENTESIS, GT FEEDING DEPENDENT, FEEDING INFUSING WELL, BEING TOLERATED WELL, NO VOMITING. KEPT HOB ELEVATED, FOR TURNING AND REPOSITIONING. KEPT SAFE AND COMFORTABLE, CALL LIGHT WITHIN REACH.
[2016-09-22] MEDS: MIDODRINE HCL (5MG) 5 MG TABLET GT SCH ×3 (04:24→20:22)
--- NOTE | 2016-09-22 05:30 | NUR ---
BP TAKEN AFTER PROAMANTINE, 96/49 HR 80, WILL CONTINUE TO MONITOR.
--- NOTE | 2016-09-22 06:33 | NUR ---
PATIENT ALERT AND AWAKE, VENTILATOR IN GOOD WORKING CONDITION, NO DISTRESS, G TUBE FEEDING INFUSING AND TOLERATED WELL, WOUND CARE RENDERED, PROVIDED GOOD PERINEAL CARE, REPOSITIONING AND TURNING Q2HRS. ALL DUE MEDICATIONS GIVEN, KEPT SAFE AND COMFORTABLE, CALL LIGHT WITHIN REACH.
[2016-09-22 07:08] LABS: CALCIUM, SERUM 8.7 mg/dL (8.5-10.1); CREATININE 1.3 mg/dL (0.6-1.3); MAGNESIUM 1.9 mg/dL (1.8-2.4); PHOSPHORUS 2.3 mg/dL (2.5-4.9); POTASSIUM 3.4 mmol/L (3.5-5.1)
--- NOTE | 2016-09-22 07:14 | NUR ---
SCARF GLUER OPENING RECEIVED PATIENT A/OX2-3 NODS YES/NO TO QUESTIONS ASKED. PATIENT DENIES PAIN, NO SOB, DIFFICULTY BREATHING. PATIENT STATES STILL A LITTLE ITCHINESS NOTIFIED I WILL GIVE BENADRYL FOR HER. PATIENT VENT SETTING APPROPRIATE NO COMPLICATIONS. PATIENT POSITIONED FOR COMFORT AND HEELS AND ELBOWS OFFLOADED. PATIENT SHAKES HEAD NO TO NEEDS AT THIS TIME. FEEDING ORDERED TOLERATING WELL NO RESIDUAL. TELE CONTROLLED AFIB 70'S. TV ON FOR PATIENT, RAILS UPX3, BED ALARM ON, AND WILL ROUND Q2H OR LESS PER NEEDS
[2016-09-22 07:23] LABS: BASOPHILS % (AUTO) 0.4 % (0.0-2.0); EOSINOPHILS # (AUTO) 0.2 /CMM (0.0-0.7); EOSINOPHILS % (AUTO) 2.9 % (0.0-6.0); HEMATOCRIT 26 % (33-45); HEMOGLOBIN 8.5 g/dL (11.5-14.8); LYMPHOCYTES # (AUTO) 1.8 /CMM (0.8-4.8); LYMPHOCYTES % (AUTO) 28.6 % (20.0-44.0); MEAN CORPUSCULAR HEMOGLOBIN 32 PG (26.0-33.0); MEAN CORPUSCULAR HGB CONC 32 g/dl (31.0-36.0); MEAN CORPUSCULAR VOLUME 99 fL (82-100); MONOCYTES # (AUTO) 0.6 /CMM (0.1-1.30); MONOCYTES % (AUTO) 10.2 % (2.0-12.0); NEUTROPHILS # (AUTO) 3.6 /CMM (1.8-8.9); NEUTROPHILS % (AUTO) 57.9 % (43.0-81.0); PLATELET COUNT (AUTO) 197 /CMM (150-450); RDW COEFFICIENT OF VARIATION 18.3 (11.5-15.0); RED BLOOD CELL COUNT(AUTO) 2.64 MIL/uL (4.0-5.2); WHITE BLOOD COUNT (AUTO) 6.2 K/uL (4.3-11.0)
[2016-09-22] MEDS: VIT B CMPLX 3/FA/VIT C/BIOTIN 1 TAB TABLET GT SCH (08:07)
[2016-09-22] MEDS: CALCITRIOL 0.25 MCG CAPSULE GT SCH (08:07)
[2016-09-22] MEDS: PANTOPRAZOLE 40 MG/PACK PACK GT SCH (08:07)
[2016-09-22] MEDS: PROSOURCE / PROSTAT (PYXIS) 30 ML UDC GT SCH (08:07)
[2016-09-22] MEDS: ZINC SULFATE 220 MG CAPSULE GT SCH (08:07)
[2016-09-22] MEDS: ASCORBIC ACID 500 MG TABLET GT SCH (08:07)
[2016-09-22] MEDS: LEVETIRACETAM SOL (5 ML) 100 MG/ML UDC GT SCH ×2 (08:07→20:21)
[2016-09-22] MEDS: Z GUARD REMEDY 2 OZ OINT TP SCH (08:08)
[2016-09-22] MEDS: HYDROGEL DRESSING 90 GM TUBE TP SCH (08:08)
[2016-09-22] MEDS: BUMETANIDE (1 MG) 1 MG TABLET GT SCH (08:11)
[2016-09-22] MEDS: METOPROLOL TARTRATE 25 MG TABLET GT SCH ×2 (08:11→20:23)
[2016-09-22] MEDS: MUPIROCIN OINT 2% 22 GM TUBE SCH ×2 (08:12→20:23)
[2016-09-22] MEDS: DOCUSATE SODIUM LIQ 100 MG/10 ML UDC GT SCH ×2 (08:12→17:00)
[2016-09-22] MEDS: SILDENAFIL CITRATE 20 MG TABLET GT SCH ×3 (08:15→17:21)
[2016-09-22] MEDS: ACETAMINOPHEN 650 MG/20.3 ML UDC GT SCH ×2 (08:15→20:21)
--- NOTE | 2016-09-22 08:30 | NUR ---
PUBLIC HEALTH TECHNOLOGIST NOTES PATIENT DENIES ITCHINESS NOW. WILL HOLD BENADRYL UNTIL NEEDED
[2016-09-22] MEDS: RENAL NOVASOURCE 1,000 ML BOTTLE GT SCH (09:13)
--- NOTE | 2016-09-22 09:16 | NUR ---
COMMERCIAL LOAN COORDINATOR NOTES ON 09/21 FEEDING WAS STOPPED AT 10AM DUE TO GTUBE PULLED OUT AND FEEDING RESUMED 1800. ORDER IS 18HR ON AND 6 HR OFF. WILL PAUSE FEEDINGS AT 1200 NOON TODAY AND WILL BE RESUMED 1800 TODAY 09/22
--- NOTE | 2016-09-22 10:18 | NUR ---
S3B MULTI SENSOR OPERATOR NOTES DR MELÉNDEZ AWARE OF PATIENT LABILE BLOOD PRESSURE AND LOWEST READINGS. NO NEW ORDERS PER MD. WILL CONTINUE TO MONITOR
--- NOTE | 2016-09-22 12:00 | NUR ---
DIET TECH NOTES TUBE FEEDING HELD PER MD ORDERD. WILL RESUME 1800
--- NOTE | 2016-09-22 12:00 | NUR ---
AIR BOX TESTER NOTES HD STARTED PER MD ORDER
[2016-09-22] MEDS ORDERED: SECONDARY IV SET 1 EA INFUS.SET MC ONE (12:24)
[2016-09-22] MEDS: ALBUMIN 25% 25 GM in PREMIX 1 EA IV PRN ×2 (12:52→13:23)
[2016-09-22] MEDS ORDERED: ALBUMIN 25% 25 GM in PREMIX 1 EA IV ONE (14:00)
--- NOTE | 2016-09-22 14:15 | NUR ---
TELEVISION CABLE INSTALLER NOTES DR MELÉNDEZ ORDERED ANOTHER ALBUMIN ADMIN FOR PATIENT LOW BP FOR HD. OK TO GIVE PER
--- NOTE | 2016-09-22 15:11 | NUR ---
DRAY TRUCK DRIVER NOTES PATIENT BP CONTINUOUSLY LOW. SPOKE WITH MD THIS IS OK AND PROCEED WITH THORACENTESIS
--- NOTE | 2016-09-22 15:20 | NUR ---
WEB CONTENT EXECUTIVE NOTES HD COMPLETED. BP 85/45 PATIENT STABLE NO COMPLAINTS
--- NOTE | 2016-09-22 16:30 | NUR ---
CASE ASSEMBLER NOTES MESSAGE TO DR MELÉNDEZ FOR RADIOLOGIST. WANT CLARIFICATION OF BOTH SIDES TO HAVE THORACENTESIS OR RIGHT ONLY WHICH HAS GREATER FLUID
--- NOTE | 2016-09-22 16:55 | NUR ---
CREATIVE ENGAGEMENT DIRECTOR NOTES PATIENT COMPLETED THORACENTESIS TO RIGHT LUNG. 850ML REMOVED. CHEST X RAY BEING TAKEN
--- NOTE | 2016-09-22 17:49 | NUR ---
CORPORATE COUNSELOR NOTES CHEST X RAY FINDINDS OF SMALL EX VACUO PNEUMOTHORAX AT RIGHT COSTOPHRENIC ANGLE. RADIOLOGY CALLED AND SPOKE WITH DR MELÉNDEZ REGARDING THIS. NO NEW ORDERS
--- NOTE | 2016-09-22 18:50 | NUR ---
SURVEY COORDINATOR CLOSING PATIENT STABLE NO S/S DIFFICULTY BREATHING OR PAIN SOB. PATIENT DENIES ITCHINESS. TURNED Q2H AND HEELS AND ELBOWS OFFLOADED THROUGHOUT THE DAY. PATIENT APPEARS STABLE AT THIS TIME. CARE WILL BE ENDORSED TO RN AT THIS TIME FOR CONNOR. RAILS UPX3 FOR SAFETY BED ALARM ON LOWERED AND LOCKED.
--- NOTE | 2016-09-22 19:30 | NUR ---
WAREHOUSE LEAD NOTES RECEIVED PT IN BED, AWAKE, ALERT AND RESPONSIVE . ON VENTILATOR, SETTINGS ORDERED. NO ACUTE RESP. DISTRESS NOTED. ON GTUBE FEEDING AT 35CC/ HR. HOB ELEVATED. PT SON ON THE BEDSIDE. CLEAN AND DRY. WILL CONTINUE TO MONITOR.
[2016-09-23] VITALS: BP 92/43
[2016-09-23] MEDS: METOCLOPRAMIDE HCL 10 MG/10 ML UDC GT SCH ×4 (00:26→17:59)
[2016-09-23] MEDS: IPRATROPIUM NEB FS 0.5 MG/2.5 ML AMPUL.NEB IH SCH ×4 (00:45→19:43)
[2016-09-23] MEDS: ALBUTEROL FS 2.5 MG/0.5 ML VIAL.NEB IH SCH ×4 (00:46→19:44)
[2016-09-23] MEDS: MIDODRINE HCL (5MG) 5 MG TABLET GT SCH ×3 (05:32→20:52)
[2016-09-23 07:23] VITALS: BP 99/46
--- NOTE | 2016-09-23 07:35 | NUR ---
CLINICAL CARE LEADER OPENING NOTES RECEIVED PT . FROM LINE ANALYST NURSE IN STABLE CONDITION. ON VENTILATOR SETTINGS ORDERED. NO SOB OR SIGNS OF DISTRESS NOTED. BREATHING IS EVEN AND UNLABORED. ON TELE MONITOR READING A FIB HR 89. IV ON LEFT FOREARM 20G IN TACT AND PATENT. WILL CONTINUE TO MONITOR.
[2016-09-23 08:00] VITALS: BP 99/46
[2016-09-23] MEDS: METOPROLOL TARTRATE 25 MG TABLET GT SCH ×2 (09:00→20:54)
[2016-09-23] MEDS: BUMETANIDE (1 MG) 1 MG TABLET GT SCH (09:00)
[2016-09-23] MEDS: DOCUSATE SODIUM LIQ 100 MG/10 ML UDC GT SCH ×2 (10:14→17:59)
[2016-09-23] MEDS: ACETAMINOPHEN 650 MG/20.3 ML UDC GT SCH ×2 (10:14→20:54)
[2016-09-23] MEDS: LEVETIRACETAM SOL (5 ML) 100 MG/ML UDC GT SCH ×2 (10:14→20:51)
[2016-09-23] MEDS: PANTOPRAZOLE 40 MG/PACK PACK GT SCH (10:14)
[2016-09-23] MEDS: ZINC SULFATE 220 MG CAPSULE GT SCH (10:15)
[2016-09-23] MEDS: ASCORBIC ACID 500 MG TABLET GT SCH (10:15)
[2016-09-23] MEDS: CALCITRIOL 0.25 MCG CAPSULE GT SCH (10:15)
[2016-09-23] MEDS: VIT B CMPLX 3/FA/VIT C/BIOTIN 1 TAB TABLET GT SCH (10:16)
[2016-09-23] MEDS: HYDROGEL DRESSING 90 GM TUBE TP SCH (10:17)
[2016-09-23] MEDS: Z GUARD REMEDY 2 OZ OINT TP SCH (10:17)
[2016-09-23] MEDS: MUPIROCIN OINT 2% 22 GM TUBE SCH ×2 (10:18→20:51)
[2016-09-23] MEDS: PROSOURCE / PROSTAT (PYXIS) 30 ML UDC GT SCH (10:28)
[2016-09-23] MEDS: SILDENAFIL CITRATE 20 MG TABLET GT SCH ×3 (10:29→17:59)
[2016-09-23] MEDS: RENAL NOVASOURCE 1,000 ML BOTTLE GT SCH (12:56)
--- NOTE | 2016-09-23 13:25 | NUR ---
COOK FRY NOTES PT.S BP WAS 89/37. DR. MELÉNDEZ WAS MADE AWARE. NO NEW ORDERS WERE GIVEN. PT IN STABLE CONDITION. WILL CONTINUE TO MONITOR.
[2016-09-23 16:04] VITALS: BP 110/54
--- NOTE | 2016-09-23 18:30 | NUR ---
BIOGEOGRAPHER CLOSING NOTES PT IN STABLE CONDITION, SLEEPING IN BED. SON AT BEDSIDE. VENT SETTINGS REMAIN ORDERED.NO SOB OR SIGNS OF DISTRESS NOTED. BREATHING IS EVEN AND UNLABORED. GT IN PLACE AND RUNNING NOVASOURCE AT 35ML.HR. OT. TOLERATING FEEDING WELL. BED IN LOW LOCKED POSITION, SIDE RAILS UP X3, CALL LIGHT WITHIN REACH. ALL SAFETY MEASURES IN PLACE. ALL ORDERS CARRIED OUT THROUGHOUT SHIFT. WILL ENDORSE TO NIGHTSHIFT NURSE FOR CONNOR
--- NOTE | 2016-09-23 19:40 | NUR ---
CLINICAL NURSING INSTRUCTOR NOTE RECEIVED PATIENT FROM DAY SHIFT, PATIENT IS ALERT AND ORIENTEDX2, SON AT BED SIDE, MOSTLY JAPANESE SPEAKER, ON VENT, NO S/S OF RESPIRATORY DISTRESS. NO FACIAL GRIMACE NOTED. IV ON LEFT FA IS PATENT AND INTACT, RIGHT CW PORT NOTED. G TUBE NOTED WITH NOVASOURCE 35ML/HR. TELE MONITOR AFIB 86. SRX, BED IN LOW POSITION, CALL LIGHT WITHIN REACH, WILL CONTINUE TO MONITOR PATIENT.
[2016-09-23 20:00] VITALS: BP 98/53
[2016-09-24] VITALS: BP 96/56
[2016-09-24] MEDS: METOCLOPRAMIDE HCL 10 MG/10 ML UDC GT SCH ×5 (00:21→23:53)
[2016-09-24] MEDS: IPRATROPIUM NEB FS 0.5 MG/2.5 ML AMPUL.NEB IH SCH ×4 (01:58→19:26)
[2016-09-24] MEDS: ALBUTEROL FS 2.5 MG/0.5 ML VIAL.NEB IH SCH ×4 (01:58→19:26)
[2016-09-24 04:00] VITALS: BP 106/60
[2016-09-24] MEDS: MIDODRINE HCL (5MG) 5 MG TABLET GT SCH ×3 (05:11→20:32)
--- NOTE | 2016-09-24 06:54 | NUR ---
MEAT BONER NOTE PATIENT IS SLEEPING AT THIS TIME, NO ACUTE DISTRESS NOTED. NO FACIAL GRIMACE OR RESPIRATORY DISTRESS NOTED. IV ON LEFT FA IS PATENT AND INTACT, HL. TELE MONITOR AFIB 77. PATIENT TURNED AND REPOSITION Q2H, MORNING CARE RENDERED. WILL ENDORSE TO DAY SHIFT FOR CONNOR.
--- NOTE | 2016-09-24 07:30 | NUR ---
MS/RN OPENING NOTE PT. IS AWAKE, A&OX2. CONTACT ISOLATION IS POSTED IN FRONT OF ROOM DUE TO PT. HAVING MRSA IN NARES. PT. IS RECEIVING HEMODIALYSIS AT THIS TIME. PT. HAS A VENT, NO SOB, AND NO S/S OF DISTRESS. PT. HAS A G TUBE WITH NOVASOURCE INFUSING AT 35ML/HR. PT. BED IS IN LOW POSITION. PT. HAS 2 SIDE RAILS UP, AND CALL LIGHT WITHIN REACH. PT. HAS DVT PUMPS ON BOTH LEGS WITH BOTH HEELS OFF LOADING.
[2016-09-24] MEDS ORDERED: SECONDARY IV SET 1 EA INFUS.SET MC ONE (07:38)
[2016-09-24 08:00] VITALS: BP 90/45
[2016-09-24] MEDS: ALBUMIN 25% 25 GM in PREMIX 1 EA IV PRN (08:17)
[2016-09-24] MEDS: SILDENAFIL CITRATE 20 MG TABLET GT SCH ×4 (09:00→16:48)
[2016-09-24] MEDS: BUMETANIDE (1 MG) 1 MG TABLET GT SCH ×2 (09:00→09:35)
[2016-09-24] MEDS: METOPROLOL TARTRATE 25 MG TABLET GT SCH ×2 (09:00→21:00)
[2016-09-24] MEDS: ACETAMINOPHEN 650 MG/20.3 ML UDC GT SCH ×2 (09:34→20:34)
[2016-09-24] MEDS: PROSOURCE / PROSTAT (PYXIS) 30 ML UDC GT SCH (09:34)
[2016-09-24] MEDS: DOCUSATE SODIUM LIQ 100 MG/10 ML UDC GT SCH ×3 (09:34→16:48)
[2016-09-24] MEDS: ZINC SULFATE 220 MG CAPSULE GT SCH (09:35)
[2016-09-24] MEDS: ASCORBIC ACID 500 MG TABLET GT SCH (09:35)
[2016-09-24] MEDS: PANTOPRAZOLE 40 MG/PACK PACK GT SCH (09:35)
[2016-09-24] MEDS: LEVETIRACETAM SOL (5 ML) 100 MG/ML UDC GT SCH ×2 (09:35→20:34)
[2016-09-24] MEDS: VIT B CMPLX 3/FA/VIT C/BIOTIN 1 TAB TABLET GT SCH (09:36)
[2016-09-24] MEDS: Z GUARD REMEDY 2 OZ OINT TP SCH (09:41)
[2016-09-24] MEDS: MUPIROCIN OINT 2% 22 GM TUBE SCH ×2 (09:42→20:35)
[2016-09-24] MEDS: HYDROGEL DRESSING 90 GM TUBE TP SCH (09:42)
--- NOTE | 2016-09-24 09:50 | NUR ---
HEMODIALYSIS PROCEDURE COMPLETED AND ADMINISTERED ALBUMIN IV 2 BOTTLES.WITH 1 LITER OUTPUT.BP 92/44 HR 102.PT TOLERATED WELL WITH NO S/S OF DISTRESS.
[2016-09-24] MEDS: CALCITRIOL 0.25 MCG CAPSULE GT SCH (10:22)
[2016-09-24 12:00] VITALS: BP 100/60
[2016-09-24 16:00] VITALS: BP 100/71
[2016-09-24] MEDS: diphenhydrAMINE HCL ELIX 25 MG/10 ML UDC GT PRN (16:44)
--- NOTE | 2016-09-24 19:30 | NUR ---
BRINE TANK TENDER OPENING NOTES: PATIENT IN BED, AOX2, RESPONDS APPROPRIATELY BY NODDING AND SHAKING HEAD. PATIENT ON [facility] VENTILATION WITH THE FF SETTINGS: AC:18, FIO2: 40%, PEEP: 5, TV: 500, WITH TRACHE TUBE OF PORTEX#8. PATIENT IS ON TELE MONITORING WITH AFIB AT RATE OF 90S, WITH BBB. ON GTUBE FEEDING OF NOVASOURCE AT 35 ML/HR, NO RESIDUAL. MAINTAINED HOB ELEVATED. PIV OVER LFA G20 INTACT AND PATENT TO FLUSH. PATIENT ALSO HAS A RCW PERMACATH WITH CLEAN AND INTACT DRESSING. PROVIDED FOR COMFORT AND SAFETY. TURNED AND REPOSITIONED. WILL CONT TO MONITOR.
[2016-09-24 20:00] VITALS: BP 96/51
--- NOTE | 2016-09-24 20:13 | NUR ---
MS/RN CLOSING NOTE PT. IS IN BED ALERT, AND RESPONSIVE TO NAME. PT. IS ON A VENT, NO S/S OF DISTRESS, NO SOB, AND PULSE Ox O2 SAT 100%. PT. HAS NOVASOURCE INFUSING THROUGH G TUBE AT 35ML/HER. AT APPROX. 1700 PT. WAS ITCHING AND WAS GIVEN BENADRYL. SACRAL WOUND DRESSING WAS CHANGED ONCE TODAY AT APPROX. 1200, HYDROGEL, AND MEPILEX APPLIED.
[2016-09-24] MEDS: RENAL NOVASOURCE 1,000 ML BOTTLE GT SCH (20:31)
--- NOTE | 2016-09-24 21:30 | NUR ---
RN NOTES: PATIENT'S SCHEDULED METOPROLOL PO WAS NOT GIVEN DUE TO DECREASED BP AT 96/51. WILL CONT TO MONITOR.
[2016-09-25] VITALS (7 sets, daily range): BP systolic 84–100; BP diastolic 39–61
[2016-09-25] MEDS: IPRATROPIUM NEB FS 0.5 MG/2.5 ML AMPUL.NEB IH SCH ×4 (00:50→20:03)
[2016-09-25] MEDS: ALBUTEROL FS 2.5 MG/0.5 ML VIAL.NEB IH SCH ×4 (00:50→20:03)
[2016-09-25] MEDS: MIDODRINE HCL (5MG) 5 MG TABLET GT SCH ×3 (05:12→20:47)
[2016-09-25] MEDS: METOCLOPRAMIDE HCL 10 MG/10 ML UDC GT SCH ×3 (05:30→17:16)
--- NOTE | 2016-09-25 06:52 | NUR ---
CAN CLOSING MACHINE OPERATOR CLOSING NOTES: PATIENT IN BED, AOX2, ABLE TO MAKE NEEDS KNOWN BY CLAPPING, AND GESTURING/ NODDING. CONTINUES TO BE ON MECH VENTILATION. SUCTIONED PATIENT PRN. TURNED AND REPOSITIONED. WOUND DRESSING OVER SACRAL AREA DONE FF: CLEANSSED WITH NS, PATTED DRY, APPLIED HYDROGEL, PACKED WITH MOIST GAUZE, THEN COVERED WITH MEPILEX. NOTED R HIP REDNESS OVER BONY PROMINENCE, PROTECTED WITH MEPILEX. CONTINUES TO BE ON GTUBE FEEDING OF NOVASOURCE AT 35 ML/HR, PATIENT TOLERATING FEEDING WELL. PROVIDED FOR COMFORT AND SAFETY. WILL ENDORSE TO AM RN FOR CONNOR.
--- NOTE | 2016-09-25 07:30 | NUR ---
SHEET METAL ASSEMBLER AND RIVETER INITIAL NOTES REPORT RECEIVED AT THE BEDSIDE. PATIENT IS BEING CHANGED BY PRESS WASHER. SKIN CHECKED AND ASSESSED. PATIENT SKIN IS VERY SENSITIVE AND FRAGILE; PRONE TO BLANCHING REDNESS. WILL BE SURE TO TURN AT LEAST Q2H. VENT SETTINGS CHECKED. NO SOB OR DISTRESS NOTED. PATIENT DOES NOT APPEAR TO BE IN PAIN. HEART RATE 89 AFIB WITH BBB. BED IN A LOW POSITION, WILL CONTINUE TO MONITOR.
[2016-09-25] MEDS: VIT B CMPLX 3/FA/VIT C/BIOTIN 1 TAB TABLET GT SCH (08:05)
[2016-09-25] MEDS: DOCUSATE SODIUM LIQ 100 MG/10 ML UDC GT SCH ×2 (08:05→17:16)
[2016-09-25] MEDS: CALCITRIOL 0.25 MCG CAPSULE GT SCH (08:05)
[2016-09-25] MEDS: Z GUARD REMEDY 2 OZ OINT TP SCH (08:05)
[2016-09-25] MEDS: ASCORBIC ACID 500 MG TABLET GT SCH (08:05)
[2016-09-25] MEDS: LEVETIRACETAM SOL (5 ML) 100 MG/ML UDC GT SCH ×2 (08:05→20:47)
[2016-09-25] MEDS: ACETAMINOPHEN 650 MG/20.3 ML UDC GT SCH ×2 (08:05→20:47)
[2016-09-25] MEDS: PROSOURCE / PROSTAT (PYXIS) 30 ML UDC GT SCH (08:05)
[2016-09-25] MEDS: ZINC SULFATE 220 MG CAPSULE GT SCH (08:05)
[2016-09-25] MEDS: PANTOPRAZOLE 40 MG/PACK PACK GT SCH (08:05)
[2016-09-25] MEDS: MUPIROCIN OINT 2% 22 GM TUBE SCH ×2 (08:06→21:19)
[2016-09-25] MEDS: HYDROGEL DRESSING 90 GM TUBE TP SCH (08:07)
[2016-09-25] MEDS: METOPROLOL TARTRATE 25 MG TABLET GT SCH ×2 (08:15→20:48)
[2016-09-25] MEDS: SILDENAFIL CITRATE 20 MG TABLET GT SCH ×3 (08:15→17:00)
[2016-09-25] MEDS: BUMETANIDE (1 MG) 1 MG TABLET GT SCH (08:15)
--- NOTE | 2016-09-25 12:00 | NUR ---
INTERNET MARKETING EXECUTIVE NOTES PATIENT HAD DEBRIDEMENT WITH KRANTHI. KRANTHI STATES TO HAVE PATIENT ON BACK TO HELP STOP BLEEDING. PATIENT PLACED SUPINE. Addendum: 09/25/16 at 1301 by CHRIS GARCIA RN DEBRIDEMENT OF SACRUM
--- NOTE | 2016-09-25 19:03 | NUR ---
SECURITY SYSTEMS INSTALLER CLOSING NOTES NO SIGNIFICANT CHANGES IN PATIENT CONDITION THROUGHOUT THE SHIFT. NO SOB OR DISTRESS NOTED AT THIS TIME. PATIENT DENIES PAIN. HEART RATE 88 AFIB. BED IN A LOW POSITION, FAMILY IS AT THE BEDSIDE. WILL ENDORSE FOR CONNOR.
--- NOTE | 2016-09-25 19:30 | NUR ---
OVAL OR CIRCULAR GLASS CUTTER OPENING NOTES: PATIENT IN BED, AWAKE AND RESPONDS BY NODDING/ GESTURING AND MOUTHING. ON [facility] VENTILATION WITH THE FF SETTINGS: AC:18, FIO2: 40%, PEEP: 5, TV: 500, TRACHE TUBE OF PORTEX #8. ON TELE MONITORING WITH AFIB AT RATE OF 80S WITH BBB. PIV OVER LFA G 20 INTACT AND PATENT TO FLUSH. ON GTUBE FEEDING WITH NOVASOURCE AT RATE OF 35 ML/HR, NO RESIDUAL NOTED. HOB KEPT ELEVATED. PROVIDED FOR COMFORT AND SAFETY. TURNED AND REPOSITIONED. WILL CONT TO MONITOR.
[2016-09-25] MEDS: RENAL NOVASOURCE 1,000 ML BOTTLE GT SCH (22:24)
[2016-09-26] VITALS: BP 105/59
[2016-09-26] MEDS: METOCLOPRAMIDE HCL 10 MG/10 ML UDC GT SCH ×4 (00:41→18:06)
[2016-09-26] MEDS: ALBUTEROL FS 2.5 MG/0.5 ML VIAL.NEB IH SCH ×4 (01:45→19:43)
[2016-09-26] MEDS: IPRATROPIUM NEB FS 0.5 MG/2.5 ML AMPUL.NEB IH SCH ×4 (01:45→19:43)
[2016-09-26 04:00] VITALS: BP 94/59
--- NOTE | 2016-09-26 04:24 | NUR ---
RN NOTES: MORNING CARE RENDERED TO PATIENT. SACRAL WOUND TREATMENT DONE, WITH DECREASED BLEEDING. TURNED AND REPOSITIONED. WILL CONT TO MONITOR.
[2016-09-26] MEDS: MIDODRINE HCL (5MG) 5 MG TABLET GT SCH ×3 (04:43→20:14)
--- NOTE | 2016-09-26 07:00 | NUR ---
PLASTIC MOULD MAKER CLOSING NOTES: PATIENT IN BED, RESPONSIVE AND COMMUNICATES BY GESTURING AND MOUTHING WORDS. [facility] WITH THE FF SETTINGS: AC:18, FIO2: 40%, PEEP: 5, TV: 500. SUCTIONED PRN. HOB ELEVATED. ON CONTINUOUS GTUBE FEEDING OF NOVASOURCE AT 35 ML/HR. PATIENT TOLERATED FEEDING WELL. DUE MEDS GIVEN. TURNED AND REPOSITIONED. WOUND TREATMENT OVER SACRAL ST4 ULCERATION DONE. NO ACUTE CHANGE IN CONDITION NOTED THROUGH SHIFT. PROVIDED FOR COMFORT AND SAFETY. BED IN LOWEST AND LOCKED POSITION, SIDERAILS UP X3. WILL ENDORSE TO AM RN FOR CONNOR.
--- NOTE | 2016-09-26 07:30 | NUR ---
MS RN RECEIVED ON BED, A VENT DEPENDENT PATIENT,NON VERBAL,NO S/S OF PAIN, G TUBE INTACT W/ FEEDING ON,ALL NEEDS ATTENDED.
[2016-09-26 08:00] VITALS: BP 98/64
[2016-09-26 08:15] LABS: BASOPHILS # (AUTO) 0.1 /CMM (0.0-0.2); BASOPHILS % (AUTO) 0.5 % (0.0-2.0); CALCIUM, SERUM 9.2 mg/dL (8.5-10.1); CREATININE 2.5 mg/dL (0.6-1.3); EOSINOPHILS # (AUTO) 0.5 /CMM (0.0-0.7); EOSINOPHILS % (AUTO) 4.5 % (0.0-6.0); HEMATOCRIT 27 % (33-45); HEMOGLOBIN 8.5 g/dL (11.5-14.8); LYMPHOCYTES # (AUTO) 1.6 /CMM (0.8-4.8); LYMPHOCYTES % (AUTO) 14.7 % (20.0-44.0); MAGNESIUM 2.3 mg/dL (1.8-2.4); MEAN CORPUSCULAR HEMOGLOBIN 32 PG (26.0-33.0); MEAN CORPUSCULAR HGB CONC 32 g/dl (31.0-36.0); MEAN CORPUSCULAR VOLUME 101 fL (82-100); MONOCYTES # (AUTO) 0.7 /CMM (0.1-1.30); MONOCYTES % (AUTO) 6.6 % (2.0-12.0); NEUTROPHILS # (AUTO) 8.3 /CMM (1.8-8.9); NEUTROPHILS % (AUTO) 73.7 % (43.0-81.0); PHOSPHORUS 2.3 mg/dL (2.5-4.9); PLATELET COUNT (AUTO) 211 /CMM (150-450); POTASSIUM 3.2 mmol/L (3.5-5.1); RDW COEFFICIENT OF VARIATION 18.2 (11.5-15.0); RED BLOOD CELL COUNT(AUTO) 2.64 MIL/uL (4.0-5.2); WHITE BLOOD COUNT (AUTO) 11.2 K/uL (4.3-11.0)
[2016-09-26] MEDS: METOPROLOL TARTRATE 25 MG TABLET GT SCH ×2 (09:00→20:15)
[2016-09-26] MEDS: SILDENAFIL CITRATE 20 MG TABLET GT SCH ×3 (09:00→17:00)
--- NOTE | 2016-09-26 09:00 | NUR ---
MS RN WAS SEEN BY DR. PAWEL Lang/ ORDERS MADE AND CARRIED OUT.
[2016-09-26] MEDS: DOCUSATE SODIUM LIQ 100 MG/10 ML UDC GT SCH ×2 (09:26→18:06)
[2016-09-26] MEDS: PANTOPRAZOLE 40 MG/PACK PACK GT SCH (09:26)
[2016-09-26] MEDS: LEVETIRACETAM SOL (5 ML) 100 MG/ML UDC GT SCH ×2 (09:26→20:15)
[2016-09-26] MEDS: BUMETANIDE (1 MG) 1 MG TABLET GT SCH (09:26)
[2016-09-26] MEDS: ZINC SULFATE 220 MG CAPSULE GT SCH (09:26)
[2016-09-26] MEDS: VIT B CMPLX 3/FA/VIT C/BIOTIN 1 TAB TABLET GT SCH (09:26)
[2016-09-26] MEDS: ASCORBIC ACID 500 MG TABLET GT SCH (09:26)
[2016-09-26] MEDS: CALCITRIOL 0.25 MCG CAPSULE GT SCH (09:26)
[2016-09-26] MEDS: PROSOURCE / PROSTAT (PYXIS) 30 ML UDC GT SCH (09:26)
[2016-09-26] MEDS: ACETAMINOPHEN 650 MG/20.3 ML UDC GT SCH ×2 (09:34→20:15)
[2016-09-26] MEDS ORDERED: EPOETIN ALFA (10,000 UNIT) 10,000 UNIT/ML VIAL SQ ONE (11:30)
[2016-09-26] MEDS: Z GUARD REMEDY 2 OZ OINT TP SCH (14:29)
[2016-09-26] MEDS: HYDROGEL DRESSING 90 GM TUBE TP SCH (14:29)
[2016-09-26] MEDS: MUPIROCIN OINT 2% 22 GM TUBE SCH ×2 (14:29→20:41)
[2016-09-26 16:00] VITALS: BP 90/48
--- NOTE | 2016-09-26 17:20 | NUR ---
MS HEEL LAYER DONE W/ 1500 ML OUTPUT.
[2016-09-26 19:00] VITALS: BP 86/35
--- NOTE | 2016-09-26 19:20 | NUR ---
MS RN NO DISTRESS NOTED,ALL NEEDS ATTENDED.
--- NOTE | 2016-09-26 19:30 | NUR ---
FLOORING MACHINE FEEDER OPENING NOTES: PATIENT IN BED, ALERT AND RESPONSIVE, ABLE TO COMMUNICATE BY CLAPPING HANDS AND MOUTHING WORDS. ON [facility] VENTILATION WITH THE FF SETTINGS: AC: 18, FIO2: 40%, PEEP: 5, TV: 500, WITH TRACHE TUBE OF PORTEX#8. ON TELE MONITORING WITH AFIB AT RATE OF 90S WITH BBB. PATIENT IS ON CONTINUOUS GTUBE FEEDING WITH NOVASOURCE AT RATE OF 35 ML/HR. NO RESIDUAL NOTED, PATIENT TOLERATING FEEDING WELL. PIV OVER LFA G20 INTACT AND PATENT TO FLUSH. RCW PERMACATH WITH DRESSING CLEAN AND INTACT. PROVIDED FOR COMFORT AND SAFETY. HOB KEPT ELEVATED. SIDERAILS UP X3, BED IN LOWEST AND LOCKED POSITION. WILL CONT TO MONITOR.
[2016-09-26 20:00] VITALS: BP 86/35
[2016-09-26] MEDS: RENAL NOVASOURCE 1,000 ML BOTTLE GT SCH (20:14)
[2016-09-26] MEDS: diphenhydrAMINE HCL ELIX 25 MG/10 ML UDC GT PRN (22:35)
--- NOTE | 2016-09-26 22:36 | NUR ---
RN NOTES: PATIENT WAS NOTED TO BE ITCHING, AND WAS SCRATCHING PARTICULARLY OVER HER PERMACATH SITE. ADMINISTERED DIPHENHYDRAMINE PER GT. WILL CONT TO MONITOR.
[2016-09-27] VITALS: BP 89/43
[2016-09-27] MEDS: ALBUTEROL FS 2.5 MG/0.5 ML VIAL.NEB IH SCH ×4 (01:23→20:26)
[2016-09-27] MEDS: IPRATROPIUM NEB FS 0.5 MG/2.5 ML AMPUL.NEB IH SCH ×4 (01:23→20:26)
[2016-09-27] MEDS: METOCLOPRAMIDE HCL 10 MG/10 ML UDC GT SCH ×4 (01:24→17:05)
[2016-09-27 04:00] VITALS: BP_SYST 89; BP_SYST 98; BP_DIAS 43; BP_DIAS 50
[2016-09-27] MEDS: MIDODRINE HCL (5MG) 5 MG TABLET GT SCH ×3 (04:36→22:04)
[2016-09-27 06:29] LABS: BASOPHILS # (AUTO) 0.1 /CMM (0.0-0.2); BASOPHILS % (AUTO) 0.8 % (0.0-2.0); EOSINOPHILS # (AUTO) 0.4 /CMM (0.0-0.7); EOSINOPHILS % (AUTO) 4.2 % (0.0-6.0); HEMATOCRIT 26 % (33-45); HEMOGLOBIN 8.4 g/dL (11.5-14.8); LYMPHOCYTES # (AUTO) 1.5 /CMM (0.8-4.8); LYMPHOCYTES % (AUTO) 17.6 % (20.0-44.0); MEAN CORPUSCULAR HEMOGLOBIN 32 PG (26.0-33.0); MEAN CORPUSCULAR HGB CONC 32 g/dl (31.0-36.0); MEAN CORPUSCULAR VOLUME 100 fL (82-100); MONOCYTES # (AUTO) 0.7 /CMM (0.1-1.30); MONOCYTES % (AUTO) 8.6 % (2.0-12.0); NEUTROPHILS # (AUTO) 5.9 /CMM (1.8-8.9); NEUTROPHILS % (AUTO) 68.8 % (43.0-81.0); PLATELET COUNT (AUTO) 204 /CMM (150-450); RDW COEFFICIENT OF VARIATION 18.3 (11.5-15.0); RED BLOOD CELL COUNT(AUTO) 2.64 MIL/uL (4.0-5.2); WHITE BLOOD COUNT (AUTO) 8.6 K/uL (4.3-11.0)
[2016-09-27 06:45] LABS: CALCIUM, SERUM 9.5 mg/dL (8.5-10.1); CREATININE 1.8 mg/dL (0.6-1.3); MAGNESIUM 2.1 mg/dL (1.8-2.4); PHOSPHORUS 2.1 mg/dL (2.5-4.9); POTASSIUM 3.4 mmol/L (3.5-5.1)
--- NOTE | 2016-09-27 06:51 | NUR ---
COMPOUND WORKER CLOSING NOTES: PATIENT IN BED, AOX2, [facility] THE FF SETTINGS: AC: 18, FIO2: 40%, PEEP: 5, TV: 500. SUCTIONED PRN. HOB MAINTAINED ELEVATED. ON TELE MONITORING WITH AFIB AT RATE OF 90S. WITH GTUBE FEEDING OF NOVASOURCE RUNNING AT 35 ML/HR, TOLERATING WELL, WITH NO RESIDUAL. NO ACUTE CHANGE IN CONDITION NOTED THROUGH SHIFT. WOUND DRESSING OVER SACRAL STAGE 4 DONE, TURNED AND REPOSITIONED PATIENT Q 2 HRS. BED IN LOWEST AND LOCKED POSITION, SIDERAILS UP X3. WILL ENDORSE TO AM RN FOR CONNOR.
--- NOTE | 2016-09-27 07:40 | NUR ---
CRUMB PACKER NOTES PATIENT IN BED, ALERT AND ORIENTED, NO COMPLAINT OF PAIN OR DISCOMFORT AT THIS TIME, HOB ELEVATED, TOLERATING CURRENT VENT SETTINGS, ON GTF NO RESIDUAL NOTED, SAFETY MEASURES IN PLACED, CALL LIGHT WITHIN REACH, WILL CONTINUE TO MONITOR.
[2016-09-27 08:00] VITALS: BP 105/49
[2016-09-27] MEDS: SILDENAFIL CITRATE 20 MG TABLET GT SCH ×3 (09:00→16:52)
[2016-09-27] MEDS: METOPROLOL TARTRATE 25 MG TABLET GT SCH ×2 (09:00→21:00)
[2016-09-27] MEDS: BUMETANIDE (1 MG) 1 MG TABLET GT SCH (09:05)
[2016-09-27] MEDS: VIT B CMPLX 3/FA/VIT C/BIOTIN 1 TAB TABLET GT SCH (09:05)
[2016-09-27] MEDS: DOCUSATE SODIUM LIQ 100 MG/10 ML UDC GT SCH ×2 (09:05→17:05)
[2016-09-27] MEDS: CALCITRIOL 0.25 MCG CAPSULE GT SCH (09:06)
[2016-09-27] MEDS: ZINC SULFATE 220 MG CAPSULE GT SCH (09:06)
[2016-09-27] MEDS: PANTOPRAZOLE 40 MG/PACK PACK GT SCH (09:06)
[2016-09-27] MEDS: ACETAMINOPHEN 650 MG/20.3 ML UDC GT SCH ×2 (09:06→22:03)
[2016-09-27] MEDS: PROSOURCE / PROSTAT (PYXIS) 30 ML UDC GT SCH (09:06)
[2016-09-27] MEDS: ASCORBIC ACID 500 MG TABLET GT SCH (09:06)
[2016-09-27] MEDS: HYDROGEL DRESSING 90 GM TUBE TP SCH (09:07)
[2016-09-27] MEDS: MUPIROCIN OINT 2% 22 GM TUBE SCH ×2 (09:07→22:10)
[2016-09-27] MEDS: Z GUARD REMEDY 2 OZ OINT TP SCH (09:07)
[2016-09-27] MEDS: LEVETIRACETAM SOL (5 ML) 100 MG/ML UDC GT SCH ×2 (09:19→22:03)
[2016-09-27] MEDS ORDERED: POTASSIUM CHLORIDE 20 MEQ POWDER PACKET PO ONE (11:30)
--- NOTE | 2016-09-27 14:34 | NUR ---
RD PROJECT MANAGER NOTES PATIENT ALERT AND ORIENTED, NO S/SX OF DISTRESS, ALL DUE MEDS GIVEN ORDERED, HOB ELEVATED FOR ASPIRATION PRECAUTION, TURNED AND REPOSITIONED, WOUND TREATMENT DONE ORDERED, NEEDS ATTENDED, CALL LIGHT PLACED WITHIN REACH, WILL CONTINUE TO MONITOR.
[2016-09-27] MEDS: diphenhydrAMINE HCL ELIX 25 MG/10 ML UDC GT PRN (15:41)
--- NOTE | 2016-09-27 19:40 | NUR ---
SEISMOLOGY TEACHER NOTES PATIENT IN BED, ALERT AND ORIENTED, HOB ELEVATED, NO S/SX OF DISTRESS NOTED, TURNED AND REPOSITIONED, NEEDS ATTENDED, GTF OFF AT THIS TIME, ALL DUE MEDS GIVEN ORDERED, CALL LIGHT PLACED WITHIN REACH, WILL ENDORSE TO PACKAGING SALES REPRESENTATIVE FOR CONNOR.
[2016-09-27] MEDS: RENAL NOVASOURCE 1,000 ML BOTTLE GT SCH (19:54)
[2016-09-27 20:00] VITALS: BP 93/49
--- NOTE | 2016-09-27 20:30 | NUR ---
TELE/RN NOTES PATIENT IN BED HOB ELEVATED ON VENT, W/ GTUBE, NO S/S OF SOB OR DISTRESS NOTED. NO RESIDUAL. FAMILY AT BEDSIDE. WILL REPOSITION FOR COMFORT. ON ISOLATION DUE TO MRSA.WILL CONTINUE TO MONITOR.
[2016-09-28] VITALS: BP 95/45
[2016-09-28] MEDS: METOCLOPRAMIDE HCL 10 MG/10 ML UDC GT SCH ×4 (00:05→17:40)
[2016-09-28] MEDS: IPRATROPIUM NEB FS 0.5 MG/2.5 ML AMPUL.NEB IH SCH ×4 (01:16→19:16)
[2016-09-28] MEDS: ALBUTEROL FS 2.5 MG/0.5 ML VIAL.NEB IH SCH ×4 (01:16→19:16)
[2016-09-28 04:00] VITALS: BP 95/45
[2016-09-28] MEDS: MIDODRINE HCL (5MG) 5 MG TABLET GT SCH ×3 (05:30→21:26)
--- NOTE | 2016-09-28 06:17 | NUR ---
TELE/RN CLOSING NOTES PATIENT IN HOB ELEVATED. ON VENT, NO S/S OF SOB OR DISTRESS. ABLE TO SLEEP INTERMITTENTLY, ALERT , ORIENT CAN FOLLOW SIMPLE COMMANDS AND RESPOND WITH A NOD AND CALL BY CLAPPING. MONITORING FOR ANY S/S OF GTUBE OR TUBE PULL OUT PATIENT ABLE TO. TELE READING AFIB 80. ABLE TO HAD 1 BM AND 1 WET DIAPER DURING THE SHIFT. NO RESIDUAL ON FEEDING. WOUND CARE PROVIDED.WILL CONTINUE TO MONITOR.
[2016-09-28 07:05] LABS: CALCIUM, SERUM 9.9 mg/dL (8.5-10.1); CREATININE 2.3 mg/dL (0.6-1.3)
--- NOTE | 2016-09-28 07:20 | NUR ---
DIGITAL MEDIA DESIGNER NOTES PATIENT IN BED, ASLEEP BUT EASILY AROUSABLE, RESPONDS BY MOUTHING WORDS, NO COMPLAINT OF PAIN OR DISCOMFORT, HOB ELEVATED, GTF ONGOING AND TOLERATING WELL, NO RESIDUAL AT THIS TIME, NEEDS ATTENDED AND MET, CALL LIGHT PLACED WITHIN REACH, WILL CONTINUE TO MONITOR.
[2016-09-28 08:00] VITALS: BP 89/41
[2016-09-28] MEDS: PROSOURCE / PROSTAT (PYXIS) 30 ML UDC GT SCH (08:08)
[2016-09-28] MEDS: METOPROLOL TARTRATE 25 MG TABLET GT SCH ×2 (08:08→20:42)
[2016-09-28] MEDS: BUMETANIDE (1 MG) 1 MG TABLET GT SCH (08:08)
[2016-09-28] MEDS: VIT B CMPLX 3/FA/VIT C/BIOTIN 1 TAB TABLET GT SCH (08:08)
[2016-09-28] MEDS: DOCUSATE SODIUM LIQ 100 MG/10 ML UDC GT SCH ×2 (08:08→17:40)
[2016-09-28] MEDS: LEVETIRACETAM SOL (5 ML) 100 MG/ML UDC GT SCH ×2 (08:08→21:26)
[2016-09-28] MEDS: SILDENAFIL CITRATE 20 MG TABLET GT SCH ×3 (08:09→17:00)
[2016-09-28] MEDS: ACETAMINOPHEN 650 MG/20.3 ML UDC GT SCH ×2 (08:09→21:26)
[2016-09-28] MEDS: ZINC SULFATE 220 MG CAPSULE GT SCH (08:09)
[2016-09-28] MEDS: ASCORBIC ACID 500 MG TABLET GT SCH (08:09)
[2016-09-28] MEDS: CALCITRIOL 0.25 MCG CAPSULE GT SCH (08:09)
[2016-09-28] MEDS: PANTOPRAZOLE 40 MG/PACK PACK GT SCH (08:09)
[2016-09-28] MEDS: diphenhydrAMINE HCL ELIX 25 MG/10 ML UDC GT PRN (08:14)
[2016-09-28] MEDS: MUPIROCIN OINT 2% 22 GM TUBE SCH ×2 (08:16→21:27)
[2016-09-28] MEDS: HYDROGEL DRESSING 90 GM TUBE TP SCH (08:16)
[2016-09-28] MEDS: Z GUARD REMEDY 2 OZ OINT TP SCH (08:16)
--- NOTE | 2016-09-28 08:30 | NUR ---
PERPETUAL INVENTORY CLERK NOTES HEMODIALYSIS SESSION STARTED.
--- NOTE | 2016-09-28 10:13 | NUR ---
DIVISION TRAFFIC SUPERINTENDENT NOTES HEMODIALYSIS COMPLETED WITH 1LITER OF OUTPUT. PATIENT'S SBP IS IN THE 80S, PATIENT IS ALERT AND ORIENTED, NO DISTRESS NOTED. WILL CONTINUE TO MONITOR.
[2016-09-28 12:05] VITALS: BP 90/45
[2016-09-28 16:00] VITALS: BP 89/53
[2016-09-28] MEDS: APIXABAN 2.5 MG TABLET GT SCH (17:40)
--- NOTE | 2016-09-28 18:27 | NUR ---
CURB ATTENDANT NOTES PATIENT IN BED, ALERT AND ORIENTED, ON TELE MONITORING WHICH SHOWS AFIB WITH HR 80, SON AT BEDSIDE, GTUBE FEEDING DOSE MET, ALL DUE MEDS GIVEN, HOB ELEVATED, PERICARE AND SKIN CARE PROVIDED, WOUND TREATMENT RENDERED ORDERED, TURNED AND REPOSITIONED SCHEDULED AND PRN, OFFLOADED BILATERAL HEELS, SUCTIONED PRN, ALL NEEDS ATTENDED AND MET, CALL LIGHT PLACED WITHIN REACH, WILL ENDORSE TO PROFESSIONAL ADVISOR FOR CONNOR.
--- NOTE | 2016-09-28 19:16 | NUR ---
[facility]. [facility] WITH NOTED [facility]. VENT ALARM WORKING AND AUDIBLE. VENT PLUGGED INTO RED OUTLET. TRACH SECURE IN AND IN PROPER POSITION. CUFF CHECKED MENAGERIE SUPERINTENDENT, PT SUCTIONED WITH SMALL AMOUNT OF YELLOWISH WHITE THICK SECRETIONS. NO RESPIRATORY DISTRESS AT THIS TIME. AMBU BAG AT BEDSIDE, WILL CONTINUE TO MONITOR .
[2016-09-28] MEDS: RENAL NOVASOURCE 1,000 ML BOTTLE GT SCH (19:28)
[2016-09-28 20:00] VITALS: BP 92/51
--- NOTE | 2016-09-28 20:00 | NUR ---
TELE/RN OPENING NOTES PATIENT IN BED HOB ELEVATED. NO S/S OF SOB OR DISTRESS. FAMILY MEMBER AT BEDSIDE. RECEIVED REPORT FROM AM RN AND TO CONTINUE CARE. WILL CONTINUE TO MONITOR
--- NOTE | 2016-09-28 23:54 | NUR ---
TELE/RN NOTES REPORTED LOW BLOOD PRESSURE OF 78/34 TAKEN ON LEFT UPPER ARM , REPORTED LAST B/P TAKEN AT 1999 91/54 AND MEDICATION MIDODRINE 5MG VIA GTUBE WAS ALSO GIVEN. MD ORDER FOR 1X OF 250 CC NS BOLUS AND IF B/P STILL BELOW SBP 90 TO TRANSFER TO ICU. WILL CONTINUE TO MONITOR.
[2016-09-28] MEDS ORDERED: IV NS 0.9% 250 ML IV ONE (23:55)
[2016-09-28] MEDS ORDERED: IV SET PRIMARY PUMP SET 1 EA INFUS.SET MC ONE (23:56)
[2016-09-29] VITALS: BP 88/49
[2016-09-29] MEDS ORDERED: IV NS 0.9% 250 ML IV ONE
--- NOTE | 2016-09-29 01:00 | NUR ---
TELE/RN NOTES PATIENT BOLUS IV ADMINISTERED IV NS 250ML. B/P CHECKED AT 91/57. PATIENT RESPONSIVE W/ NO S/S OF SOB OR DISTRESS. WILL CONTINUE TO MONITOR.
[2016-09-29] MEDS: METOCLOPRAMIDE HCL 10 MG/10 ML UDC GT SCH ×3 (01:03→13:43)
[2016-09-29] MEDS: ALBUTEROL FS 2.5 MG/0.5 ML VIAL.NEB IH SCH ×3 (01:05→14:12)
[2016-09-29] MEDS: IPRATROPIUM NEB FS 0.5 MG/2.5 ML AMPUL.NEB IH SCH ×3 (01:05→14:12)
[2016-09-29 04:00] VITALS: BP 93/50
[2016-09-29] MEDS: MIDODRINE HCL (5MG) 5 MG TABLET GT SCH ×2 (05:07→13:44)
--- NOTE | 2016-09-29 06:35 | NUR ---
TELE/RN NOTES PATIENT IN BED ALERT, ORIENTED X3. NO S/S OF SOB OR DISTRESS. MONITORING FOR BLOOD PRESSURE.WITH B/P IN SBP 90'S. WILL CONTINUE TO MONITOR AND ENDORSE TO AM RN FOR CONNOR.
[2016-09-29 07:18] LABS: BASOPHILS # (AUTO) 0.1 /CMM (0.0-0.2); BASOPHILS % (AUTO) 0.8 % (0.0-2.0); EOSINOPHILS # (AUTO) 0.5 /CMM (0.0-0.7); EOSINOPHILS % (AUTO) 6.6 % (0.0-6.0); HEMATOCRIT 26 % (33-45); HEMOGLOBIN 8.4 g/dL (11.5-14.8); LYMPHOCYTES # (AUTO) 1.7 /CMM (0.8-4.8); MEAN CORPUSCULAR HEMOGLOBIN 33 PG (26.0-33.0); MEAN CORPUSCULAR HGB CONC 33 g/dl (31.0-36.0); MEAN CORPUSCULAR VOLUME 100 fL (82-100); MONOCYTES # (AUTO) 0.6 /CMM (0.1-1.30); MONOCYTES % (AUTO) 7.4 % (2.0-12.0); NEUTROPHILS # (AUTO) 4.8 /CMM (1.8-8.9); NEUTROPHILS % (AUTO) 63.2 % (43.0-81.0); PLATELET COUNT (AUTO) 197 /CMM (150-450); RDW COEFFICIENT OF VARIATION 17.3 (11.5-15.0); RED BLOOD CELL COUNT(AUTO) 2.58 MIL/uL (4.0-5.2); WHITE BLOOD COUNT (AUTO) 7.7 K/uL (4.3-11.0)
--- NOTE | 2016-09-29 07:30 | NUR ---
RESIDENTIAL PROPERTY CONSULTANT NOTES PT IN BED, AWAKE, ALERT, NOT IN PAIN OR DISTRESS, MOUTHS WORDS AND DOES HAND GESTURES, VENT IN PLACE, GT INFUSING WELL, KEPT HOB ELEVATED, KEPT CLEAN, DRY AND COMFORTABLE.
[2016-09-29 07:33] LABS: CALCIUM, SERUM 9.4 mg/dL (8.5-10.1); CREATININE 2.1 mg/dL (0.6-1.3); MAGNESIUM 2.1 mg/dL (1.8-2.4); POTASSIUM 3.7 mmol/L (3.5-5.1)
[2016-09-29 08:00] VITALS: BP 96/58
[2016-09-29] MEDS: CALCITRIOL 0.25 MCG CAPSULE GT SCH (08:34)
[2016-09-29] MEDS: ASCORBIC ACID 500 MG TABLET GT SCH (08:34)
[2016-09-29] MEDS: PROSOURCE / PROSTAT (PYXIS) 30 ML UDC GT SCH (08:34)
[2016-09-29] MEDS: ACETAMINOPHEN 650 MG/20.3 ML UDC GT SCH (08:35)
[2016-09-29] MEDS: LEVETIRACETAM SOL (5 ML) 100 MG/ML UDC GT SCH (08:35)
[2016-09-29] MEDS: DOCUSATE SODIUM LIQ 100 MG/10 ML UDC GT SCH (08:35)
[2016-09-29] MEDS: PANTOPRAZOLE 40 MG/PACK PACK GT SCH (08:35)
[2016-09-29] MEDS: ZINC SULFATE 220 MG CAPSULE GT SCH (08:35)
[2016-09-29] MEDS: VIT B CMPLX 3/FA/VIT C/BIOTIN 1 TAB TABLET GT SCH (08:35)
[2016-09-29] MEDS: APIXABAN 2.5 MG TABLET GT SCH (08:40)
[2016-09-29] MEDS: METOPROLOL TARTRATE 25 MG TABLET GT SCH (08:43)
[2016-09-29] MEDS: BUMETANIDE (1 MG) 1 MG TABLET GT SCH (08:48)
[2016-09-29] MEDS: SILDENAFIL CITRATE 20 MG TABLET GT SCH ×2 (08:48→13:00)
[2016-09-29] MEDS: Z GUARD REMEDY 2 OZ OINT TP SCH (09:00)
[2016-09-29] MEDS: HYDROGEL DRESSING 90 GM TUBE TP SCH (10:19)
[2016-09-29] MEDS: MUPIROCIN OINT 2% 22 GM TUBE SCH (10:20)
--- NOTE | 2016-09-29 13:00 | NUR ---
HEADER MACHINE OPERATOR NOTES PT IN BED, ASLEEP, EASY TO AROUSE, GT FEEDING INFUSING WELL, CALL LIGHT WITHIN REACH, TURNED AND REPOSITIONED Q2 HRS, WOUND TREATMENT DONE, DRESSING CHANGE DONE, KEPT COMFORTABLE.
[2016-09-29 13:44] VITALS: BP 84/42
--- NOTE | 2016-09-29 15:41 | NUR ---
SENIOR LITIGATION PARALEGAL NOTES PT IN BED, AWAKE, ALERT, NOT IN DISTRESS, DENIES PAIN, VENT IN PLACE, DISCHARGE ORDER RECEIVED FROM DR. Ricardo MELÉNDEZ, DISCHARGE AND MEDICATION INSTRUCTIONS PROVIDED TO PT, VERBALIZED UNDERSTANDING BY NODDING HER HEAD, VS STABLE, REPORT GIVEN TO [facility], INFORMED OF PT'S LATEST VITAL SIGNS, AMBULANCE PERSONNEL HERE TO SOFTWARE DEVELOPMENT ENGINEER PT.
--- NOTE | 2016-09-29 15:52 | NUR ---
MEDICAL AND HEALTH SERVICES MANAGER NOTES PT'S SON RAYMOND INFORMED THAT PT IS TRANSFERRING BACK TO [facility], APPRECIATED THE CALL.
--- NOTE | 2016-09-29 15:52 | NUR ---
GM MOBILE NOTES PT PICKED UP BY 3 AMBULANCE PERSONNEL, PT NOT IN PAIN OR DISTRESS, LEFT IN STABLE CONDITION.
== END 2016-09-29 15:50 | DRG 981 ==
LOC: ER 19:28 → TELE 22:35
PROVIDERS: ADMIT Internal Medicine Nephrology; ATTEND Internal Medicine Nephrology
PROC: 5A1955Z Respiratory Ventilation, Greater than 96 Consecutive Hours (ICD-10-PCS; principal; 2016-09-20)
PROC: 0W9G3ZZ Drainage of Peritoneal Cavity, Percutaneous Approach (ICD-10-PCS; 2016-09-21)
PROC: 5A1D60Z (ICD-10-PCS; 2016-09-21)
PROC: 0W993ZZ Drainage of Right Pleural Cavity, Percutaneous Approach (ICD-10-PCS; 2016-09-22)
PROC: 0KBP0ZZ Excision of Left Hip Muscle, Open Approach (ICD-10-PCS; 2016-09-25)
PROC: 0KBN0ZZ Excision of Right Hip Muscle, Open Approach (ICD-10-PCS; 2016-09-25)
DX: I13.2 Hypertensive heart and chronic kidney disease with heart failure and with stage 5 chronic kidney disease, or end stage renal disease (principal); N18.6 End stage renal disease; L89.154 Pressure ulcer of sacral region, stage 4; Z99.11 Dependence on respirator [ventilator] status; J90 Pleural effusion, not elsewhere classified; R18.8 Other ascites; J96.11 Chronic respiratory failure with hypoxia; E87.70 Fluid overload, unspecified; I50.9 Heart failure, unspecified; Z93.0 Tracheostomy status; Z86.73 Personal history of transient ischemic attack (TIA), and cerebral infarction without residual deficits; Z99.2 Dependence on renal dialysis; K21.9 Gastro-esophageal reflux disease without esophagitis; E11.22 Type 2 diabetes mellitus with diabetic chronic kidney disease; I48.91 Unspecified atrial fibrillation; I27.2 Other secondary pulmonary hypertension; K74.60 Unspecified cirrhosis of liver; I48.2 Chronic atrial fibrillation; D64.9 Anemia, unspecified; E78.5 Hyperlipidemia, unspecified; R13.10 Dysphagia, unspecified
CPT/HCPCS: 31720; 36415; 71010-TC; 74000-TC; 76942-TC; 80048-TC; 80076-TC; 83690-TC; 83735-TC; 84100-TC; 85025-TC; 85730-TC; 87070-TC; 87081-TC; 90935-TC; 94002-TC; 94003-TC; 94760-TC; 94799-TC; 99082-TC; A4216; A4606; A6248; A6253; A6402; A6403; J0885; J1953; J7050; J8597; P9047; Q0162; Q0163; Q9963; Z7610

== ENCOUNTER 2016-10-02 16:22 | Inpatient (IN) | payer MEDICARE, OTHER ==
[~2016-10-02] VITALS: Ht 165.1 cm; Wt 55.8 kg
[~2016-10-02 16:22] MED LIST changes: -APIX2.5T GT; +BUME1TAB4 GT; +CALC0.253 GT; -LANS30CA56 GT; -MIDO5TAB GT; +OMEP40CA37 GT; -TRAM50TA2 GT
--- NOTE | 2016-10-02 16:23 | NUR ---
PT TO ED ROOM 06. BIB PRIVATE EMT, LOW BP AFTER COMPLETING HER DIALYSIS. SIDE RAILS UP. HOB ELEVATED. CONNECTED TO MONITOR. SEEN AND EVLUATED BY ED PROVIDER.
--- NOTE | 2016-10-02 16:45 | NUR ---
WINDOW GLAZIER AT BEDSIDE FOR BLODODRAW
[2016-10-02 16:50] VITALS: BP 102/45
[2016-10-02] MEDS ORDERED: CEFTRIAXONE 1GM BAG (ER ONLY) 50 ML IV ONE ×2 (17:00→17:16)
[2016-10-02] MEDS ORDERED: IV NS 0.9% 1,000 ML BAG IV ONE ×2 (17:00→18:00)
[2016-10-02] MEDS ORDERED: AZITHROMYCIN 500 MG in IV D5W 250 ML IV ONE (17:00)
--- NOTE | 2016-10-02 17:00 | NUR ---
CXR AT [facility]
[2016-10-02 17:04] LABS: BASOPHILS % (AUTO) 0.4 % (0.0-2.0); EOSINOPHILS # (AUTO) 0.3 /CMM (0.0-0.7); EOSINOPHILS % (AUTO) 4.1 % (0.0-6.0); HEMATOCRIT 28 % (33-45); HEMOGLOBIN 9.3 g/dL (11.5-14.8); LYMPHOCYTES # (AUTO) 1.4 /CMM (0.8-4.8); LYMPHOCYTES % (AUTO) 16.8 % (20.0-44.0); MEAN CORPUSCULAR HEMOGLOBIN 33 PG (26.0-33.0); MEAN CORPUSCULAR HGB CONC 33 g/dl (31.0-36.0); MEAN CORPUSCULAR VOLUME 99 fL (82-100); MONOCYTES # (AUTO) 0.6 /CMM (0.1-1.30); MONOCYTES % (AUTO) 7.5 % (2.0-12.0); NEUTROPHILS # (AUTO) 6.2 /CMM (1.8-8.9); NEUTROPHILS % (AUTO) 71.2 % (43.0-81.0); PLATELET COUNT (AUTO) 229 /CMM (150-450); RDW COEFFICIENT OF VARIATION 15.9 (11.5-15.0); RED BLOOD CELL COUNT(AUTO) 2.84 MIL/uL (4.0-5.2); WHITE BLOOD COUNT (AUTO) 8.5 K/uL (4.3-11.0)
[2016-10-02 17:14] LABS: CALCIUM, SERUM 9.3 mg/dL (8.5-10.1); CARBON DIOXIDE 29 mmol/L (21-32); CHLORIDE 102 mmol/L (98-107); CREATININE 1.1 mg/dL (0.6-1.3); GLUCOSE 110 mg/dL (74-106); POTASSIUM 3.3 mmol/L (3.5-5.1); SODIUM SERUM 138 mmol/L (136-145); UREA NITROGEN, BLOOD 14 mg/dL (7-18)
[2016-10-02] MEDS ORDERED: IV NS 0.9% 1,000 ML ONE (17:15)
[2016-10-02] MEDS ORDERED: IV SET PRIMARY PUMP SET 1 EA INFUS.SET MC ONE ×2 (17:16→17:25)
[2016-10-02 17:20] LABS: ALANINE AMINOTRANSFERASE 16 U/L (12-78); ALBUMIN 3.1 g/dL (3.4-5.0); ALKALINE PHOSPHATASE 285 U/L (46-116); ASPARTATE AMINOTRANSFERASE 21 U/L (15-37); BILIRUBIN,DIRECT 0.1 mg/dL (0.0-0.2); BILIRUBIN,TOTAL 0.4 mg/dL (0.2-1.0); TOTAL PROTEIN, SERUM 7.6 g/dL (6.4-8.2)
[2016-10-02 17:22] LABS: TROPONIN I < 0.017 ng/mL (0.00-0.056)
[2016-10-02 17:34] LABS: LACTIC ACID 0.8 mmol/L (0.4-2.0)
--- NOTE | 2016-10-02 17:34 | NUR ---
DR ARANDA DECIDED NOT TO GIVE 2500 ML IVF SINCE PATIENT HAD FLUID OVERLOAD PRIOUSLY
--- NOTE | 2016-10-02 17:46 | NUR ---
URINE SAMPLE OBTAINED VBIA IN/OUT CATH. SAMPLE SEND TO LAB.
--- NOTE | 2016-10-02 17:51 | NUR ---
Patient is resting comfortably in bed with eyes closed. Easily aroused. VSS
[2016-10-02 17:55] LABS: INR 1.17 (0.87-1.13); PROTHROMBIN TIME 12.7 SECS (9.5-12.7)
[2016-10-02 17:55] LABS: APPEARANCE,URINE CLOUDY (CLEAR); BILIRUBIN,URINE 1+ (NEGATIVE); BLOOD, URINE 3+ Ery/uL (NEGATIVE); COLOR,URINE YELLOW (YELLOW); KETONES,URINE TRACE (NEGATIVE); LEUKOCYTE ESTERASE ,URINE 2+ (NEGATIVE); NITRITE, URINE NEGATIVE (NEGATIVE); PROTEIN,URINE 1+ mg/dl (NEGATIVE); UGLUCOSE NEGATIVE (NEGATIVE); UROBILINOGEN,URINE 0.2 EU/dL (0.2)
--- NOTE | 2016-10-02 17:58 | NUR ---
PT GOING TO [facility] 111-1
[2016-10-02 17:59] LABS: PARTIAL THROMBOPLASTIN TIME > 170 SEC (23-34)
[2016-10-02 18:05] LABS: ADD URINE CULTURE YES; BACTERIA,URINE 4+ /HPF (None Seen); RBC,URINE 21-50 /HPF (0-2); SQUAMOUS EPITHELIAL CELL,UR 0-2 /HPF (None Seen); WBC,URINE TOO NUMEROUS TO COUN /HPF (0-3)
--- NOTE | 2016-10-02 18:25 | NUR ---
Patient is resting comfortably in bed with eyes closed. Easily aroused. VSS
--- NOTE | 2016-10-02 18:45 | NUR ---
SPOKE TO HERMINIO SUPERVISOR HEAVY EQUIPMENT WHITNEY, "THE NURSE AND PRECONSTRUCTION MANAGER CANNOT TAKE REPORT AT THIS TIME".
[2016-10-02 19:25] VITALS: BP 134/87
--- NOTE | 2016-10-02 19:36 | NUR ---
REPORT GIVE TO NURSE NILO 111-1 WHITNEY.
--- NOTE | 2016-10-02 19:36 | NUR ---
RN NOTE RECEIVED REPORT FROM CHARLI MENDEZ RN FOR CONTINUITY OF CARE. AWAITING ARRIVAL OF PT TO UNIT.
[2016-10-02 20:00] VITALS: BP 120/56
--- NOTE | 2016-10-02 20:00 | NUR ---
RN INITIAL NOTE RECEIVED PT IN NO ACUTE DISTRESS IN BED. PT IS A/O X 2 AND ABLE TO MAKE NEEDS KNOWN BY MOUTHING WORDS. PT IS ON MECHANICAL VENT VIA TRACH. TRACH SITE IS CLEAN DRY AND INTACT. PT TOLERATING VENT SETTING WELL. PT IS ON TELE WITH ST ON THE MONITOR. PT IS NOT C/O ANY SOB, DIFFICULTY BREATHING OR PAIN AT THIS TIME. PT HAS GTUBE THAT IS CLEAN DRY INTACT AND PATENT WITH NOVASOURCE @ 35ML/HR. PT HAS 0 RESIDUAL. PT HAS LFA 20G THAT IS CLEAN DRY INTACT AND PATENT. CALL LIGHT WITHIN REACH AND ALL SAFETY MEASURE ENSURED AND CARRIED OUT. WILL CONTINUE TO MONITOR PT.
[2016-10-02] MEDS ORDERED: LEVOFLOXACIN 500 MG /D5W 100ML 500 MG in PREMIX 1 EA IV SCH (20:30)
--- NOTE | 2016-10-02 20:30 | NUR ---
RN NOTE RECEIVED ORDERS FROM DR COPELAND TO D/C ROCEPHIN AND START LEVAQUIN 500MG IVPB IN AM. READBACK COMPLETE AND ORDERS PLACED IN PT EMAR.
[2016-10-02] MEDS: RENAL NOVASOURCE 1,000 ML BOTTLE GT PRN (22:19)
[2016-10-03] VITALS: BP 93/59
[2016-10-03 04:00] VITALS: BP 103/61
--- NOTE | 2016-10-03 07:33 | NUR ---
RN CLOSING NOTE PT REMAINS IN NO ACUTE DISTRESS IN BED. PT DID NOT HAVE ANY SIGNIFICANT CHANGE IN CONDITION. ALL NEEDS MET ALL ORDERS CARRIED OUT. PT TOLERATED VENT SETTINGS WELL. WILL ENDORSE TO AM RN FOR CONTINUITY OF CARE.
[2016-10-03 08:00] VITALS: BP 99/46
--- NOTE | 2016-10-03 08:01 | NUR ---
RN NOTES RECEIVED PT IN BED, TRACHED, ON MECH VENT SETTINGS PRESCRIBED, NO RESP DISTRESS NOTED. SUCTIONED FOR AIRWAY CLEARANCE. ONGOING GTF NOVASOURCE@35ML/HR, NO RESIDUAL AT THIS TIME. REPOSITIONED FOR COMFORT, SAFETY MAINTAINED, CALL LIGHT WITHIN REACH, WILL CONT TO MONITOR
[2016-10-03 08:02] LABS: BASOPHILS # (AUTO) 0.1 /CMM (0.0-0.2); EOSINOPHILS # (AUTO) 0.1 /CMM (0.0-0.7); EOSINOPHILS % (AUTO) 1.7 % (0.0-6.0); HEMATOCRIT 26 % (33-45); HEMOGLOBIN 8.4 g/dL (11.5-14.8); LYMPHOCYTES # (AUTO) 1.7 /CMM (0.8-4.8); LYMPHOCYTES % (AUTO) 24.3 % (20.0-44.0); MEAN CORPUSCULAR HEMOGLOBIN 32 PG (26.0-33.0); MEAN CORPUSCULAR HGB CONC 32 g/dl (31.0-36.0); MEAN CORPUSCULAR VOLUME 100 fL (82-100); MONOCYTES # (AUTO) 0.7 /CMM (0.1-1.30); MONOCYTES % (AUTO) 10.4 % (2.0-12.0); NEUTROPHILS # (AUTO) 4.3 /CMM (1.8-8.9); NEUTROPHILS % (AUTO) 62.6 % (43.0-81.0); PLATELET COUNT (AUTO) 218 /CMM (150-450); RDW COEFFICIENT OF VARIATION 16.9 (11.5-15.0); WHITE BLOOD COUNT (AUTO) 6.9 K/uL (4.3-11.0)
[2016-10-03 08:17] LABS: CREATININE 1.4 mg/dL (0.6-1.3); MAGNESIUM 2.1 mg/dL (1.8-2.4); PHOSPHORUS 2.9 mg/dL (2.5-4.9); POTASSIUM 3.7 mmol/L (3.5-5.1)
[2016-10-03] MEDS ORDERED: LEVOFLOXACIN 500 MG /D5W 100ML 500 MG in PREMIX 1 EA IV ONE (09:00)
[2016-10-03] MEDS ORDERED: AZITHROMYCIN 500 MG in IV D5W 250 ML IV SCH ×2 (09:00→18:00)
[2016-10-03] MEDS ORDERED: ACETAMINOPHEN 650 MG/20.3 ML UDC GT PRN (09:30)
[2016-10-03] MEDS ORDERED: IPRATROPIUM NEB FS 0.5 MG/2.5 ML AMPUL.NEB IH PRN (09:30)
[2016-10-03] MEDS ORDERED: ALBUTEROL FS 2.5 MG/0.5 ML VIAL.NEB IH PRN (09:30)
[2016-10-03] MEDS ORDERED: ONDANSETRON 4 MG TAB.RAPDIS GT PRN (09:30)
[2016-10-03] MEDS ORDERED: LACTULOSE 10 G/15 ML UDC (PYXIS) PO PRN (09:30)
[2016-10-03] MEDS: METOPROLOL TARTRATE 25 MG TABLET GT SCH ×2 (09:46→21:00)
[2016-10-03] MEDS: ACETAMINOPHEN 650 MG/20.3 ML UDC GT SCH ×2 (09:58→21:28)
[2016-10-03] MEDS: LEVETIRACETAM SOL (5 ML) 100 MG/ML UDC GT SCH ×2 (09:58→21:28)
[2016-10-03] MEDS: DOCUSATE SODIUM LIQ 100 MG/10 ML UDC GT SCH ×2 (09:58→17:25)
[2016-10-03] MEDS ORDERED: SECONDARY IV SET 1 EA INFUS.SET MC ONE ×2 (09:59→15:14)
[2016-10-03] MEDS ORDERED: IV NS 0.9% 250 ML IV ONE (09:59)
[2016-10-03] MEDS: ASCORBIC ACID 500 MG TABLET GT SCH (09:59)
[2016-10-03] MEDS: CALCITRIOL 0.25 MCG CAPSULE GT SCH (09:59)
[2016-10-03] MEDS: BUMETANIDE (1 MG) 1 MG TABLET GT SCH (09:59)
[2016-10-03] MEDS ORDERED: IV SET PRIMARY PUMP SET 1 EA INFUS.SET MC ONE (09:59)
[2016-10-03] MEDS: Z GUARD REMEDY 2 OZ OINT TP SCH (10:00)
[2016-10-03] MEDS: PROSOURCE / PROSTAT (PYXIS) 30 ML UDC GT SCH (11:05)
[2016-10-03] MEDS: VIT B CMPLX 3/FA/VIT C/BIOTIN 1 TAB TABLET GT SCH (11:06)
[2016-10-03] MEDS: ZINC SULFATE 220 MG CAPSULE GT SCH (11:06)
[2016-10-03] MEDS: HYDROGEL DRESSING 90 GM TUBE TP SCH (11:06)
[2016-10-03] MEDS: PANTOPRAZOLE 40 MG/PACK PACK GT SCH (11:06)
[2016-10-03 12:00] VITALS: BP 109/40
[2016-10-03] MEDS ORDERED: DOSING PER PHARMACY-AMIKACI IV XX PRN (12:00)
[2016-10-03] MEDS ORDERED: FEE PK DOSING 1 MIN EA MC ONE (12:33)
[2016-10-03] MEDS ORDERED: AMIKACIN 500 MG in IV D5W 100 ML IV ONE (13:00)
[2016-10-03] MEDS ORDERED: AMIKACIN 450 MG in IV D5W 100 ML IV ONE (13:00)
[2016-10-03] MEDS ORDERED: AMIKACIN 250 MG/ML VIAL IV SCH (13:00)
[2016-10-03] MEDS: METOCLOPRAMIDE HCL 10 MG/10 ML UDC GT SCH ×2 (13:18→17:25)
[2016-10-03] MEDS: SILDENAFIL CITRATE 20 MG TABLET GT SCH ×2 (13:19→17:25)
[2016-10-03] MEDS: MIDODRINE HCL (5MG) 5 MG TABLET PO SCH ×2 (13:19→21:00)
[2016-10-03] MEDS: IPRATROPIUM NEB FS 0.5 MG/2.5 ML AMPUL.NEB IH SCH ×2 (13:30→20:25)
[2016-10-03] MEDS: ALBUTEROL FS 2.5 MG/0.5 ML VIAL.NEB IH SCH ×2 (13:30→20:25)
--- NOTE | 2016-10-03 15:15 | NUR ---
RN NOTES HD COMPLETED, 800ML FLUID OUT. LATEST BP 87/47 HR 104 TEMP 97.9
[2016-10-03 16:00] VITALS: BP 86/39
[2016-10-03] MEDS: CEFTRIAXONE 1 G in IV D5W 50 ML IV SCH (17:25)
--- NOTE | 2016-10-03 17:35 | NUR ---
RT in the moring this pt had only vent check and no Tx, that's why not given, when i saw, it was late to give .
--- NOTE | 2016-10-03 19:30 | NUR ---
RN INITIAL NOTE RECEIVED PT IN NO ACUTE DISTRESS IN BED. PT IS ALERT AND ABLE TO MAKE NEEDS KNOWN BY MOUTHING WORDS. PT IS ON MECHANICAL VENT VIA TRACH. TRACH SITE IS CLEAN DRY AND INTACT. PT TOLERATING VENT SETTING WELL. PT IS ON TELE WITH ST ON THE MONITOR. PT IS NOT C/O ANY SOB, DIFFICULTY BREATHING OR PAIN AT THIS TIME. PT HAS GTUBE THAT IS CLEAN DRY INTACT AND PATENT WITH NOVASOURCE @ 35ML/HR. PT HAS 0 RESIDUAL. PT HAS LFA 20G THAT IS CLEAN DRY INTACT AND PATENT. CALL LIGHT WITHIN REACH AND ALL SAFETY MEASURE ENSURED AND CARRIED OUT. WILL CONTINUE TO MONITOR PT.
[2016-10-03 22:17] VITALS: BP 99/36
[2016-10-04] VITALS: BP 93/45
[2016-10-04] MEDS: METOCLOPRAMIDE HCL 10 MG/10 ML UDC GT SCH ×4 (00:04→17:28)
[2016-10-04] MEDS: IPRATROPIUM NEB FS 0.5 MG/2.5 ML AMPUL.NEB IH SCH ×4 (00:47→20:05)
[2016-10-04] MEDS: ALBUTEROL FS 2.5 MG/0.5 ML VIAL.NEB IH SCH ×4 (00:48→20:05)
[2016-10-04 04:00] VITALS: BP 99/45
[2016-10-04] MEDS: MIDODRINE HCL (5MG) 5 MG TABLET PO SCH ×3 (05:11→21:08)
--- NOTE | 2016-10-04 07:10 | NUR ---
RN INITIAL NOTES RECEIVED PT IN BED, AWAKE, ABLE TO MOUTH WORDS, PT IS ON [facility] VENT PORTEX #7 AC 18 TV 500 FIO2 40% PEEP 0, SATING WELL, NO S/S OF RESP. DISTRESS OR SOB NOTED AT THIS TIME, PT IS ON TELE MONITOR SHOWING UNCONTROLLED A FIB W/BBB @100'S, NO C/O OF DISCOMFORT OR CHEST PAIN AT THIS TIME.PT HAS GTUBE FEEDING RUNNING ORDERED, PATENT/INTACT, FLUSHING WELL, NO RESIDUALS NOTED AT THIS TIME, TOLERATING WELL, PT IS NOTED WITH MULTIPLE SKIN ISSUES, PT HAS LFA # 20G, RUNNING TKO AT THIS TIME, C/D/I/PATENT, FLUSHING WELL, NO S/S OF INFECTION/ INFILTRATION NOTED AT THIS TIME, ALL SAFETY MEASURES IN PLACE AT ALL TIMES, CALL LIGHT WITHIN EASY REACH, WILL MONITOR PT CLOSELY FOR CHANGES
[2016-10-04 08:00] VITALS: BP_SYST 92; BP_DIAS 33; BP_DIAS 44
[2016-10-04] MEDS: METOPROLOL TARTRATE 25 MG TABLET GT SCH ×2 (09:00→21:00)
[2016-10-04] MEDS ORDERED: LEVOFLOXACIN 250 MG /D5W 50 ML 250 MG in PREMIX 1 EA IV SCH (09:00)
[2016-10-04] MEDS: ACETAMINOPHEN 650 MG/20.3 ML UDC GT SCH ×2 (09:06→21:07)
[2016-10-04] MEDS: ZINC SULFATE 220 MG CAPSULE GT SCH (09:06)
[2016-10-04] MEDS: DOCUSATE SODIUM LIQ 100 MG/10 ML UDC GT SCH ×2 (09:06→17:28)
[2016-10-04] MEDS: ASCORBIC ACID 500 MG TABLET GT SCH (09:06)
[2016-10-04] MEDS: CALCITRIOL 0.25 MCG CAPSULE GT SCH (09:06)
[2016-10-04] MEDS: SILDENAFIL CITRATE 20 MG TABLET GT SCH ×3 (09:06→17:28)
[2016-10-04] MEDS: VIT B CMPLX 3/FA/VIT C/BIOTIN 1 TAB TABLET GT SCH (09:06)
[2016-10-04] MEDS: PROSOURCE / PROSTAT (PYXIS) 30 ML UDC GT SCH (09:06)
[2016-10-04] MEDS: PANTOPRAZOLE 40 MG/PACK PACK GT SCH (09:06)
[2016-10-04] MEDS: BUMETANIDE (1 MG) 1 MG TABLET GT SCH (09:06)
[2016-10-04] MEDS: LEVETIRACETAM SOL (5 ML) 100 MG/ML UDC GT SCH ×2 (09:06→21:07)
[2016-10-04] MEDS: Z GUARD REMEDY 2 OZ OINT TP SCH (09:15)
[2016-10-04] MEDS: HYDROGEL DRESSING 90 GM TUBE TP SCH (09:15)
[2016-10-04 12:00] VITALS: BP 102/42
--- NOTE | 2016-10-04 12:03 | NUR ---
WOUND CARE CONSULT: PT PRESENTS WITH STAGE IV ULCER TO SACRAL AREA, PRESENT ON ADMISSION. RECOMMENDATIONS MADE FOR SKIN PROTECTION AND WOUND CARE. DISCUSSED WITH NURSING STAFF. PT FOLLOWED BY PLASTICS TEAM. PT ON KOBE ISOFLEX LOW AIRLOSS BED. ALL SKIN PROTECTION MEASURES IN PLACE. MD IN AGREEMENT WITH PLAN OF CARE. Addendum: 10/04/16 at 1204 by ALONSO GARZA WNDNU Amended: Links added.
[2016-10-04] MEDS ORDERED: AMIKACIN 400 MG in IV D5W 100 ML IV PRN (12:30)
[2016-10-04] MEDS ORDERED: AMIKACIN 500 MG in IV D5W 100 ML IV PRN (12:30)
--- NOTE | 2016-10-04 14:00 | NUR ---
RN NOTES PT HAS LEFT SIDE PARACENTESIS, 27[address] FLUID TAKEN OUT. PT TOLERATED WELL, BP STABLE
[2016-10-04 16:00] VITALS: BP 94/42
[2016-10-04] MEDS: RENAL NOVASOURCE 1,000 ML BOTTLE GT PRN (17:20)
[2016-10-04] MEDS: LACTOBACILLUS RHAMNOSUS GG 1 EACH CAP.SPRINK PO SCH (17:28)
[2016-10-04] MEDS: CEFTRIAXONE 1 G in IV D5W 50 ML IV SCH (17:28)
--- NOTE | 2016-10-04 17:52 | NUR ---
RT END OF THE SHIFT REPORT: PT. 80 Y OLD FEMALE REMAIN PORTEX # 8 ON VENT WITH NOTED SETTINGS. ALARMS ARE SET AND FUNCTIONAL. EQUAL CHEST RISE NOTED AND NO RESPIRATORY DISTRESS NOTED T/O SHIFT. TX'S GIVEN INLINE INES/ NO ADVERSE REACTION NOTED. VENT PLUGGED INTO RED OUTLET AND HME CHANGED ADMINISTRATIVE TECHNICIAN DONE AND PT. REMAIN STABLE. B/S RALES BILATERALLY SUX'D FOR MINIMAL AMT TORRES SECRETIONS. AMBU BAG AT THE BEDSIDE. CONTINUE FOR MONITOR AND REPORT WILL PASS BE TO INTERVENTIONAL CARDIOLOGIST. Addendum: 10/04/16 at 1752 by ZANDRA PANTOJA RT Amended: Links added.
--- NOTE | 2016-10-04 18:47 | NUR ---
RN CLOSING NOTES PT REMAINED STABLE DURING SHIFT, ALL MEDICATIONS GIVEN, ALL ORDERS CARRIED OUT, ALL TREATMENT CARRIED OUT, TUBE FEEDING RUNNING ORDERED, IV C/D/I/PATENT, ALL TURNED AND REPOSITIONED, PT KEPT CLEAN AND DRY, WILL GIVE REPORT TO PM RN FOR CONNOR
--- NOTE | 2016-10-04 19:20 | NUR ---
RN INITIAL NOTE RECEIVED PT IN NO ACUTE DISTRESS IN BED. PT IS A/O X 2 AND ABLE TO MAKE NEEDS KNOWN BY MOUTHING WORDS. PT IS ON MECHANICAL VENT VIA TRACH. TRACH SITE IS CLEAN DRY AND INTACT. PT TOLERATING VENT SETTING WELL. PT IS ON TELE WITH ST ON THE MONITOR. PT IS NOT C/O ANY SOB, DIFFICULTY BREATHING OR PAIN AT THIS TIME. PT HAS GTUBE THAT IS CLEAN DRY INTACT AND PATENT WITH NOVASOURCE @ 35ML/HR. PT HAS 0 RESIDUAL. PT IS S/P PARACENTESIS WITH 2750 OUTPUT. ABDOMEN IS NON DISTENDED AND PT IS SLEEPING COMFORTABLY IN BED. PT HAS LFA 20G THAT IS CLEAN DRY INTACT AND PATENT. CALL LIGHT WITHIN REACH AND ALL SAFETY MEASURE ENSURED AND CARRIED OUT. WILL CONTINUE TO MONITOR PT.
[2016-10-04 20:00] VITALS: BP 94/48
[2016-10-05] VITALS (7 sets, daily range): BP systolic 85–117; BP diastolic 42–89
[2016-10-05] MEDS: METOCLOPRAMIDE HCL 10 MG/10 ML UDC GT SCH ×5 (00:26→23:48)
[2016-10-05] MEDS: ALBUTEROL FS 2.5 MG/0.5 ML VIAL.NEB IH SCH ×4 (01:35→20:19)
[2016-10-05] MEDS: IPRATROPIUM NEB FS 0.5 MG/2.5 ML AMPUL.NEB IH SCH ×4 (01:35→20:19)
[2016-10-05] MEDS: MIDODRINE HCL (5MG) 5 MG TABLET PO SCH ×3 (04:29→20:35)
[2016-10-05] MEDS ORDERED: IV NS 0.9% 250 ML IV ONE (06:18)
--- NOTE | 2016-10-05 07:47 | NUR ---
teletype mechanic note patient in bed ,resting comfortably at this time, with trach to vent setting as ordered ambu bag at hob , on gtube feeding as ordered ,keep hob elevated at all time , lt fa hl intact bed in lowest and locked position , call light within reach ,no sob noted ,will cont to monitor closely
[2016-10-05 08:11] LABS: CALCIUM, SERUM 9.1 mg/dL (8.5-10.1); POTASSIUM 4.1 mmol/L (3.5-5.1)
[2016-10-05] MEDS: VIT B CMPLX 3/FA/VIT C/BIOTIN 1 TAB TABLET GT SCH (08:44)
[2016-10-05] MEDS: LEVETIRACETAM SOL (5 ML) 100 MG/ML UDC GT SCH ×2 (08:44→20:35)
[2016-10-05] MEDS: PANTOPRAZOLE 40 MG/PACK PACK GT SCH (08:44)
[2016-10-05] MEDS: PROSOURCE / PROSTAT (PYXIS) 30 ML UDC GT SCH (08:44)
[2016-10-05] MEDS: BUMETANIDE (1 MG) 1 MG TABLET GT SCH (08:44)
[2016-10-05] MEDS: LACTOBACILLUS RHAMNOSUS GG 1 EACH CAP.SPRINK PO SCH ×2 (08:45→16:22)
[2016-10-05] MEDS: ASCORBIC ACID 500 MG TABLET GT SCH (08:45)
[2016-10-05] MEDS: ZINC SULFATE 220 MG CAPSULE GT SCH (08:45)
[2016-10-05] MEDS: CALCITRIOL 0.25 MCG CAPSULE GT SCH (08:45)
[2016-10-05] MEDS: SILDENAFIL CITRATE 20 MG TABLET GT SCH ×3 (08:46→16:22)
[2016-10-05] MEDS: ACETAMINOPHEN 650 MG/20.3 ML UDC GT SCH ×2 (08:46→20:34)
[2016-10-05] MEDS: DOCUSATE SODIUM LIQ 100 MG/10 ML UDC GT SCH ×2 (08:46→16:21)
[2016-10-05] MEDS: HYDROGEL DRESSING 90 GM TUBE TP SCH (08:46)
[2016-10-05] MEDS: Z GUARD REMEDY 2 OZ OINT TP SCH (08:47)
[2016-10-05] MEDS: METOPROLOL TARTRATE 25 MG TABLET GT SCH ×2 (08:47→20:35)
--- NOTE | 2016-10-05 11:00 | NUR ---
RUG DYER HELPER NOTE HD STARTED, NOT IN ACUTE DISTRESS, PER DRPELEG NO WATER BY MOUTH MOUTH CARE DONE ,WILL CONT TO MONITOR
--- NOTE | 2016-10-05 13:00 | NUR ---
TELE RNNOTE HD COMPLETED ,NO FLUIDS OUT ,BP 105/49 HR 78 ,WILL CONT TO MONITOR PER LAB NO RESULT FROM AMIKACIN LEVEL; PHARMACIST AWARE ,SPOKE WITH JENNIFER
--- NOTE | 2016-10-05 14:32 | NUR ---
RESIDENTIAL CARE FACILITY MANAGER NOTE C\O ABDOMINAL PAIN TYLENOL VIA G TUBE GIVEN ORDERED
--- NOTE | 2016-10-05 16:05 | NUR ---
DATABASE SECURITY ADMINISTRATOR NOTE DR PARKER THAT G TUBE SIDE WITH REDNESS, WITH ORDER APPLY TRIPLE ATB ON G TUBE SITE DAILY , ORDER CARRIED OUT
[2016-10-05] MEDS: CEFTRIAXONE 1 G in IV D5W 50 ML IV SCH (16:22)
[2016-10-05] MEDS: NEOMY SULF/BACITRAC ZN/POLY 15 GM TUBE TP SCH (16:30)
[2016-10-05] MEDS ORDERED: SECONDARY IV SET 1 EA INFUS.SET MC ONE (18:06)
[2016-10-05] MEDS: MEROPENEM 500 MG in IV NS 0.9% 50 ML IV SCH (18:10)
--- NOTE | 2016-10-05 18:47 | NUR ---
REFINING STILL OPERATOR NOTE RESTING COMFORTABLY, ALL NEEDS ATTENDED ,NOT IN ACUTE DISTRESS
--- NOTE | 2016-10-05 20:00 | NUR ---
RN NOTES RECEIVED PX AWAKE, ALERT, FOLLOWS COMMAND, NODS TO INDICATE YES/NO; WITH TRACH TO VENT; WITH G TUBE TO TF, GTUBE SITE WITH REDNESS AND SMALL SEROUS DRAIN; WITH HD ACCESS ON RIGHT CHEST CHEST; ALL DRESSINGS CLEAN,DRY,INTACT; WITH DIAPER ON; BILAT DVT PUMPS WITH HEELS OFFLOADED; PIV FLUSHED,PATENT,INTACT; SR ON MONITOR; DENIED PAIN, SOB, N/V; SUCTIONED ORALLY AND TRACHEALLY; REPOSITIONED WITH HOB AT 30 ANGLE; DISCUSSED PLAN OF CARE.
--- NOTE | 2016-10-05 21:00 | NUR ---
RN NOTES DUE MEDS GIVEN; REPORT GIVEN TO TOMMY VIERA FOR CONTINUITY OF CARE.
--- NOTE | 2016-10-05 21:00 | NUR ---
NEIGHBORHOOD PLANNER NOTES RECEIVED REPORT FROM MONAE, FOR CONTINUATION OF CARE
[2016-10-06] VITALS: BP 86/33
[2016-10-06] MEDS: IPRATROPIUM NEB FS 0.5 MG/2.5 ML AMPUL.NEB IH SCH ×4 (01:21→20:20)
[2016-10-06] MEDS: ALBUTEROL FS 2.5 MG/0.5 ML VIAL.NEB IH SCH ×4 (01:21→20:20)
[2016-10-06] MEDS: RENAL NOVASOURCE 1,000 ML BOTTLE GT PRN (03:49)
[2016-10-06 04:00] VITALS: BP 90/44
[2016-10-06] MEDS ORDERED: EPOETIN ALFA (10,000 UNIT) 10,000 UNIT/ML VIAL IV ONE (05:00)
[2016-10-06] MEDS: METOCLOPRAMIDE HCL 10 MG/10 ML UDC GT SCH ×3 (05:16→17:52)
[2016-10-06] MEDS: MEROPENEM 500 MG in IV NS 0.9% 50 ML IV SCH ×2 (05:16→17:53)
[2016-10-06] MEDS: MIDODRINE HCL (5MG) 5 MG TABLET PO SCH ×3 (05:17→21:48)
--- NOTE | 2016-10-06 07:11 | NUR ---
EXPORT SALES ASSISTANT CLOSING NOTES NO SIGNIFICANT CHANGES OVERNIGHT, NO ACUTE DISTRESS NOTED, ON MECHANICAL VENT, AND TOLERATING CURRENT SETTINGS. TOLERATED CONTINUOUS GTF FEEDING. IV SITES PATENT, NO S/SX OF INFECTION OR INFILTRATION. ALL MEDS GIVEN ORDERED, TOLERATED IT WELL. ALL SAFETY MEASURES MAINTAINED. CALL LIGHT WITHIN REACH, WILL ENDORSE TO AM NURSE FOR CONTINUATION OF CARE
[2016-10-06 07:25] LABS: BASOPHILS % (AUTO) 0.4 % (0.0-2.0); EOSINOPHILS # (AUTO) 0.1 /CMM (0.0-0.7); EOSINOPHILS % (AUTO) 1.3 % (0.0-6.0); HEMATOCRIT 24 % (33-45); HEMOGLOBIN 7.9 g/dL (11.5-14.8); LYMPHOCYTES # (AUTO) 1.5 /CMM (0.8-4.8); LYMPHOCYTES % (AUTO) 16.7 % (20.0-44.0); MEAN CORPUSCULAR HEMOGLOBIN 32 PG (26.0-33.0); MEAN CORPUSCULAR HGB CONC 33 g/dl (31.0-36.0); MEAN CORPUSCULAR VOLUME 99 fL (82-100); MONOCYTES # (AUTO) 0.8 /CMM (0.1-1.30); MONOCYTES % (AUTO) 9.1 % (2.0-12.0); NEUTROPHILS # (AUTO) 6.4 /CMM (1.8-8.9); NEUTROPHILS % (AUTO) 72.5 % (43.0-81.0); PLATELET COUNT (AUTO) 212 /CMM (150-450); RDW COEFFICIENT OF VARIATION 16.5 (11.5-15.0); RED BLOOD CELL COUNT(AUTO) 2.46 MIL/uL (4.0-5.2); WHITE BLOOD COUNT (AUTO) 8.8 K/uL (4.3-11.0)
[2016-10-06 07:38] LABS: ALBUMIN 2.3 g/dL (3.4-5.0); BILIRUBIN,TOTAL 0.4 mg/dL (0.2-1.0); CALCIUM, SERUM 8.6 mg/dL (8.5-10.1); CREATININE 1.8 mg/dL (0.6-1.3); MAGNESIUM 1.9 mg/dL (1.8-2.4); PHOSPHORUS 3.7 mg/dL (2.5-4.9); POTASSIUM 4.1 mmol/L (3.5-5.1); TOTAL PROTEIN, SERUM 6.4 g/dL (6.4-8.2)
[2016-10-06 08:00] VITALS: BP 111/48
[2016-10-06] MEDS: PROSOURCE / PROSTAT (PYXIS) 30 ML UDC GT SCH (10:22)
[2016-10-06] MEDS: LACTOBACILLUS RHAMNOSUS GG 1 EACH CAP.SPRINK PO SCH ×2 (10:25→17:52)
[2016-10-06] MEDS: ASCORBIC ACID 500 MG TABLET GT SCH (10:25)
[2016-10-06] MEDS: BUMETANIDE (1 MG) 1 MG TABLET GT SCH (10:25)
[2016-10-06] MEDS: LEVETIRACETAM SOL (5 ML) 100 MG/ML UDC GT SCH ×2 (10:25→21:48)
[2016-10-06] MEDS: VIT B CMPLX 3/FA/VIT C/BIOTIN 1 TAB TABLET GT SCH (10:26)
[2016-10-06] MEDS: SILDENAFIL CITRATE 20 MG TABLET GT SCH ×3 (10:26→17:52)
[2016-10-06] MEDS: DOCUSATE SODIUM LIQ 100 MG/10 ML UDC GT SCH ×2 (10:26→17:52)
[2016-10-06] MEDS: PANTOPRAZOLE 40 MG/PACK PACK GT SCH (10:27)
[2016-10-06] MEDS: ZINC SULFATE 220 MG CAPSULE GT SCH (10:27)
[2016-10-06] MEDS: CALCITRIOL 0.25 MCG CAPSULE GT SCH (10:28)
[2016-10-06] MEDS: ACETAMINOPHEN 650 MG/20.3 ML UDC GT SCH (10:28)
[2016-10-06] MEDS: METOPROLOL TARTRATE 25 MG TABLET GT SCH ×2 (10:28→21:00)
[2016-10-06] MEDS: Z GUARD REMEDY 2 OZ OINT TP SCH (10:29)
[2016-10-06] MEDS: HYDROGEL DRESSING 90 GM TUBE TP SCH (10:29)
[2016-10-06] MEDS: NEOMY SULF/BACITRAC ZN/POLY 15 GM TUBE TP SCH (10:30)
[2016-10-06 12:00] VITALS: BP 93/49
[2016-10-06 16:00] VITALS: BP 92/45
[2016-10-06] MEDS: CEFTRIAXONE 1 G in IV D5W 50 ML IV SCH (17:27)
[2016-10-06 20:00] VITALS: BP 85/47
[2016-10-07] VITALS: BP 97/50
[2016-10-07] MEDS: METOCLOPRAMIDE HCL 10 MG/10 ML UDC GT SCH ×4 (00:49→17:01)
[2016-10-07] MEDS: ALBUTEROL FS 2.5 MG/0.5 ML VIAL.NEB IH SCH ×4 (01:56→19:32)
[2016-10-07] MEDS: IPRATROPIUM NEB FS 0.5 MG/2.5 ML AMPUL.NEB IH SCH ×4 (01:56→19:32)
[2016-10-07 04:00] VITALS: BP 90/42
[2016-10-07] MEDS: MIDODRINE HCL (5MG) 5 MG TABLET PO SCH ×3 (05:43→21:17)
[2016-10-07] MEDS: MEROPENEM 500 MG in IV NS 0.9% 50 ML IV SCH ×2 (06:32→17:02)
--- NOTE | 2016-10-07 07:00 | NUR ---
Received pt in bed.no s/s of distress.breathing even and unlabored.no c/o pain.mech vent settings well tolerated.on tele monitoring S.R I.V site CDI and patent.safety measures in place.bed in low and lock position.will continue to monitor for changes.
--- NOTE | 2016-10-07 07:09 | NUR ---
RN NOTE PT REMAINS IN NO ACUTE DISTRESS IN BED. PT DID NOT HAVE ANY SIGNIFICANT CHANGE IN CONDITION DURING SHIFT. ALL NEEDS MET ALL ORDERS CARRIED OUT. PT TOLERATED VENT SETTING WELL. IV PATENT, CLEAN DRY AND INTACT. ALL SAFETY MEASURES ENSURED AND CARRIED OUT. WILL ENDORSE CARE TO AM RN FOR CONTINUITY OF CARE.
--- NOTE | 2016-10-07 07:21 | NUR ---
RN NOTE EPOGEN WAS DOCUMENTED ON WRONG DATE AND TIME. CONTACTED PHARMACY AND WILL RECEIVE NEW EPOGEN ORDER. WILL ENDORSE TO AM RN.
[2016-10-07] MEDS ORDERED: EPOETIN ALFA (10,000 UNIT) 10,000 UNIT/ML VIAL IV ONE (07:30)
[2016-10-07 07:31] LABS: EOSINOPHILS # (AUTO) 0.3 /CMM (0.0-0.7); EOSINOPHILS % (AUTO) 4.8 % (0.0-6.0); HEMATOCRIT 23 % (33-45); HEMOGLOBIN 7.7 g/dL (11.5-14.8); LYMPHOCYTES # (AUTO) 1.1 /CMM (0.8-4.8); LYMPHOCYTES % (AUTO) 17.8 % (20.0-44.0); MEAN CORPUSCULAR HEMOGLOBIN 33 PG (26.0-33.0); MEAN CORPUSCULAR HGB CONC 33 g/dl (31.0-36.0); MEAN CORPUSCULAR VOLUME 98 fL (82-100); MONOCYTES # (AUTO) 0.2 /CMM (0.1-1.30); MONOCYTES % (AUTO) 3.2 % (2.0-12.0); NEUTROPHILS # (AUTO) 4.4 /CMM (1.8-8.9); NEUTROPHILS % (AUTO) 74.2 % (43.0-81.0); PLATELET COUNT (AUTO) 208 /CMM (150-450); RDW COEFFICIENT OF VARIATION 16.1 (11.5-15.0); RED BLOOD CELL COUNT(AUTO) 2.34 MIL/uL (4.0-5.2)
[2016-10-07 07:45] LABS: ALBUMIN 2.2 g/dL (3.4-5.0); BILIRUBIN,TOTAL 0.3 mg/dL (0.2-1.0); CREATININE 1.6 mg/dL (0.6-1.3); MAGNESIUM 1.8 mg/dL (1.8-2.4); PHOSPHORUS 2.8 mg/dL (2.5-4.9); TOTAL PROTEIN, SERUM 6.2 g/dL (6.4-8.2)
[2016-10-07 08:00] VITALS: BP 88/42
[2016-10-07] MEDS: LEVETIRACETAM SOL (5 ML) 100 MG/ML UDC GT SCH ×2 (08:34→21:17)
[2016-10-07] MEDS: ASCORBIC ACID 500 MG TABLET GT SCH (08:34)
[2016-10-07] MEDS: BUMETANIDE (1 MG) 1 MG TABLET GT SCH (08:34)
[2016-10-07] MEDS: CALCITRIOL 0.25 MCG CAPSULE GT SCH (08:34)
[2016-10-07] MEDS: LACTOBACILLUS RHAMNOSUS GG 1 EACH CAP.SPRINK PO SCH ×2 (08:35→17:02)
[2016-10-07] MEDS: VIT B CMPLX 3/FA/VIT C/BIOTIN 1 TAB TABLET GT SCH (08:35)
[2016-10-07] MEDS: PROSOURCE / PROSTAT (PYXIS) 30 ML UDC GT SCH (08:35)
[2016-10-07] MEDS: METOPROLOL TARTRATE 25 MG TABLET GT SCH ×2 (08:36→21:00)
[2016-10-07] MEDS: DOCUSATE SODIUM LIQ 100 MG/10 ML UDC GT SCH ×2 (08:37→17:01)
[2016-10-07] MEDS: HYDROGEL DRESSING 90 GM TUBE TP SCH (08:38)
[2016-10-07] MEDS: ZINC SULFATE 220 MG CAPSULE GT SCH (08:38)
[2016-10-07] MEDS: PANTOPRAZOLE 40 MG/PACK PACK GT SCH (08:38)
[2016-10-07] MEDS: Z GUARD REMEDY 2 OZ OINT TP SCH (08:39)
[2016-10-07] MEDS: SILDENAFIL CITRATE 20 MG TABLET GT SCH ×3 (08:39→16:56)
[2016-10-07] MEDS: NEOMY SULF/BACITRAC ZN/POLY 15 GM TUBE TP SCH (08:39)
[2016-10-07 12:00] VITALS: BP 92/43
[2016-10-07 16:00] VITALS: BP 94/49
[2016-10-07] MEDS: CEFTRIAXONE 1 G in IV D5W 50 ML IV SCH (17:02)
--- NOTE | 2016-10-07 19:16 | NUR ---
RN CLOSING NOTES PT IN STABLE CONDITION.NO C/O PAIN,NO S/S OF DISTRESS.BREATHING EVEN AND UNLABORED.ALL M.D ORDERS NOTED AND CARRIED OUT.
--- NOTE | 2016-10-07 19:56 | NUR ---
RN INITIAL NOTE RECEIVED PT IN NO ACUTE DISTRESS IN BED. PT IS A/O X 2 AND ABLE TO MAKE NEEDS KNOWN BY MOUTHING WORDS. PT IS ON MECHANICAL VENT VIA TRACH. TRACH SITE IS CLEAN DRY AND INTACT. PT TOLERATING VENT SETTING WELL. PT IS ON TELE WITH ST ON THE MONITOR. PT IS NOT C/O ANY SOB, DIFFICULTY BREATHING OR PAIN AT THIS TIME. PT HAS GTUBE THAT IS CLEAN DRY INTACT AND PATENT WITH NOVASOURCE @ 35ML/HR. PT HAS 0 RESIDUAL. ABDOMEN IS NON DISTENDED AND PT IS SLEEPING COMFORTABLY IN BED. PT HAS LFA 20G THAT IS CLEAN DRY INTACT AND PATENT. CALL LIGHT WITHIN REACH AND ALL SAFETY MEASURE ENSURED AND CARRIED OUT. WILL CONTINUE TO MONITOR PT.
[2016-10-07 20:00] VITALS: BP 94/44
[2016-10-08] VITALS: BP 82/38
[2016-10-08] MEDS: METOCLOPRAMIDE HCL 10 MG/10 ML UDC GT SCH ×4 (00:59→16:59)
[2016-10-08] MEDS: ALBUTEROL FS 2.5 MG/0.5 ML VIAL.NEB IH SCH ×4 (01:21→20:00)
[2016-10-08] MEDS: IPRATROPIUM NEB FS 0.5 MG/2.5 ML AMPUL.NEB IH SCH ×4 (01:21→20:00)
[2016-10-08 04:00] VITALS: BP 85/35
[2016-10-08] MEDS: MIDODRINE HCL (5MG) 5 MG TABLET PO SCH ×3 (04:08→21:44)
[2016-10-08] MEDS ORDERED: IV NS 0.9% 250 ML IV ONE (05:20)
[2016-10-08] MEDS: MEROPENEM 500 MG in IV NS 0.9% 50 ML IV SCH ×2 (05:21→17:09)
--- NOTE | 2016-10-08 07:29 | NUR ---
RN CLOSING NOTE PT REMAINS IN NO ACUTE DISTRESS IN BED. PT DID NOT HAVE ANY SIGNIFICANT CHANGE IN CONDITION DURING SHIFT. ALL NEEDS MET ALL ORDERS CARRIED OUT. WILL ENDORSE CARE TO AM RN FOR CONTINUITY OF CARE.
[2016-10-08 07:30] LABS: CALCIUM, SERUM 8.5 mg/dL (8.5-10.1); CREATININE 1.7 mg/dL (0.6-1.3); POTASSIUM 3.4 mmol/L (3.5-5.1)
[2016-10-08 08:00] VITALS: BP 95/33
--- NOTE | 2016-10-08 08:00 | NUR ---
TELE1/RN AM SHIFT INITIAL NOTES RECEIVED PT AWAKE IN BED, NO ACUTE CHANGE OF CONDITION OR DISTRESS NOTED. PT A/O X 2, ABLE TO MOUTH WORDS IN [place]AM[place]. ON VENTILATOR ST AT PRESCRIBED RATES, SATURATING @ 100%, NOTED WITH DIMINISHED LUNG SOUNDS, SUCTIONED FOR AIRWAY CLEARANCE. ON TELE WITH CONTROLLED A-FIB, HR 83. ON GOING GTF @ 35CC/HR, FLUSHED PATENT WITH NO RESIDUAL. IV SITE FLUSHED, PATENT. PT IS COMFORTABLE. SCHEDULED AM MEDS TO BE GIVEN. CL WITHIN REACHED AND SAFETY MAINTAINED. ON GOING MONITORING.
[2016-10-08] MEDS: PROSOURCE / PROSTAT (PYXIS) 30 ML UDC GT SCH (08:46)
[2016-10-08] MEDS: LEVETIRACETAM SOL (5 ML) 100 MG/ML UDC GT SCH ×2 (08:46→21:43)
[2016-10-08] MEDS: DOCUSATE SODIUM LIQ 100 MG/10 ML UDC GT SCH ×2 (08:46→16:59)
[2016-10-08] MEDS: ASCORBIC ACID 500 MG TABLET GT SCH (08:47)
[2016-10-08] MEDS: VIT B CMPLX 3/FA/VIT C/BIOTIN 1 TAB TABLET GT SCH (08:47)
[2016-10-08] MEDS: PANTOPRAZOLE 40 MG/PACK PACK GT SCH (08:47)
[2016-10-08] MEDS: BUMETANIDE (1 MG) 1 MG TABLET GT SCH (08:47)
[2016-10-08] MEDS: LACTOBACILLUS RHAMNOSUS GG 1 EACH CAP.SPRINK PO SCH ×2 (08:47→16:59)
[2016-10-08] MEDS: SILDENAFIL CITRATE 20 MG TABLET GT SCH ×3 (08:47→16:59)
[2016-10-08] MEDS: ZINC SULFATE 220 MG CAPSULE GT SCH (08:47)
[2016-10-08] MEDS: CALCITRIOL 0.25 MCG CAPSULE GT SCH (08:47)
[2016-10-08] MEDS: METOPROLOL TARTRATE 25 MG TABLET GT SCH ×2 (08:48→21:00)
[2016-10-08] MEDS: Z GUARD REMEDY 2 OZ OINT TP SCH (08:48)
[2016-10-08] MEDS: HYDROGEL DRESSING 90 GM TUBE TP SCH (08:48)
[2016-10-08] MEDS: NEOMY SULF/BACITRAC ZN/POLY 15 GM TUBE TP SCH (08:48)
[2016-10-08 12:00] VITALS: BP 92/43
--- NOTE | 2016-10-08 14:24 | NUR ---
TELE1/RN ROUNDS PT SUCTIONED AND REPOSITIONED. NOTED NO CHANGE O CONDITION. ON GOING MONITORING.
[2016-10-08 16:00] VITALS: BP 90/35
[2016-10-08] MEDS: CEFTRIAXONE 1 G in IV D5W 50 ML IV SCH (16:58)
--- NOTE | 2016-10-08 17:00 | NUR ---
TELE1/RN AFTERNOON ROUNDS PM CARE PROVIDED. NO ACUTE CHANGE OF CONDITION. MONITORING CONTINUED.
[2016-10-08] MEDS: APIXABAN 2.5 MG TABLET PO SCH (17:12)
--- NOTE | 2016-10-08 19:03 | NUR ---
TELE1/RN AM SHIFT END NOTES ALL NEEDS MET. NO ACUTE CHANGE OF CONDITION NOTED DURING THE SHIFT. PT ENDORSED TO PM NURSE TO CONTINUE CARE. CL WITHIN REACHED AND SAFETY MAINTAINED.
[2016-10-08 20:00] VITALS: BP 84/33
[2016-10-09] VITALS (10 sets, daily range): BP systolic 90–99; BP diastolic 35–48
[2016-10-09] MEDS: METOCLOPRAMIDE HCL 10 MG/10 ML UDC GT SCH ×4 (00:41→17:13)
[2016-10-09] MEDS: ALBUTEROL FS 2.5 MG/0.5 ML VIAL.NEB IH SCH ×4 (02:01→19:03)
[2016-10-09] MEDS: IPRATROPIUM NEB FS 0.5 MG/2.5 ML AMPUL.NEB IH SCH ×4 (02:01→19:03)
[2016-10-09] MEDS: MEROPENEM 500 MG in IV NS 0.9% 50 ML IV SCH ×2 (05:05→19:07)
[2016-10-09] MEDS: RENAL NOVASOURCE 1,000 ML BOTTLE GT PRN (05:09)
[2016-10-09] MEDS: MIDODRINE HCL (5MG) 5 MG TABLET PO SCH ×3 (05:09→21:25)
--- NOTE | 2016-10-09 06:30 | NUR ---
TELE-1/RIVETER HAND PT REFUSING AM LAB DRAW. WILL ENDORSE TO AM SHIFT.
--- NOTE | 2016-10-09 07:31 | NUR ---
TELE1/RN AM SHIFT INITIAL NOTES RECEIVED PT ASLEEP IN BED, NO ACUTE CHANGE OF CONDITION OR GRIMACE NOTED. PT A/O X 2, ABLE TO MOUTH WORDS IN [place]. ON VENTILATOR ST AT PRESCRIBED RATES, SATURATING @ 100%, NOTED WITH DIMINISHED LUNG SOUNDS, SUCTIONED FOR AIRWAY CLEARANCE. ON TELE WITH CONTROLLED A-FIB, HR 72. ON GOING GTF @ 35CC/HR, FLUSHED PATENT WITH NO RESIDUAL. IV SITE FLUSHED, PATENT. PT IS COMFORTABLE. NOTIFIED BY PM NURSE PT REFUSED AM LAB DRAW THIS MORNING WILL TRY AGAIN LATER. SCHEDULED AM MEDS TO BE GIVEN. CL WITHIN REACHED AND SAFETY MAINTAINED. ON GOING MONITORING.
[2016-10-09] MEDS: PROSOURCE / PROSTAT (PYXIS) 30 ML UDC GT SCH (08:29)
[2016-10-09] MEDS: LEVETIRACETAM SOL (5 ML) 100 MG/ML UDC GT SCH ×2 (08:29→21:24)
[2016-10-09] MEDS: ASCORBIC ACID 500 MG TABLET GT SCH (08:30)
[2016-10-09] MEDS: ZINC SULFATE 220 MG CAPSULE GT SCH (08:30)
[2016-10-09] MEDS: BUMETANIDE (1 MG) 1 MG TABLET GT SCH (08:30)
[2016-10-09] MEDS: VIT B CMPLX 3/FA/VIT C/BIOTIN 1 TAB TABLET GT SCH (08:30)
[2016-10-09] MEDS: DOCUSATE SODIUM LIQ 100 MG/10 ML UDC GT SCH ×2 (08:30→16:35)
[2016-10-09] MEDS: CALCITRIOL 0.25 MCG CAPSULE GT SCH (08:30)
[2016-10-09] MEDS: LACTOBACILLUS RHAMNOSUS GG 1 EACH CAP.SPRINK PO SCH ×2 (08:30→16:36)
[2016-10-09] MEDS: SILDENAFIL CITRATE 20 MG TABLET GT SCH ×3 (08:31→16:18)
[2016-10-09] MEDS: METOPROLOL TARTRATE 25 MG TABLET GT SCH ×2 (08:31→20:52)
[2016-10-09] MEDS: PANTOPRAZOLE 40 MG/PACK PACK GT SCH (08:31)
[2016-10-09] MEDS: Z GUARD REMEDY 2 OZ OINT TP SCH (08:32)
[2016-10-09] MEDS: NEOMY SULF/BACITRAC ZN/POLY 15 GM TUBE TP SCH (08:32)
[2016-10-09] MEDS: HYDROGEL DRESSING 90 GM TUBE TP SCH (08:32)
[2016-10-09] MEDS: APIXABAN 2.5 MG TABLET PO SCH ×2 (08:33→16:36)
--- NOTE | 2016-10-09 10:35 | NUR ---
TELE1/COLLAR FELLER TX DIALYSIS TX INITIATED. BP 87/47, HR 95. PT TO BE GIVEN PROAMATINE EARLY SCHEDULED TO SUPPORT BP. MONITORING.
[2016-10-09 11:34] LABS: BASOPHILS % (AUTO) 0.4 % (0.0-2.0); EOSINOPHILS # (AUTO) 0.2 /CMM (0.0-0.7); EOSINOPHILS % (AUTO) 2.8 % (0.0-6.0); HEMATOCRIT 23 % (33-45); HEMOGLOBIN 7.7 g/dL (11.5-14.8); LYMPHOCYTES # (AUTO) 1.2 /CMM (0.8-4.8); LYMPHOCYTES % (AUTO) 16.9 % (20.0-44.0); MEAN CORPUSCULAR HEMOGLOBIN 32 PG (26.0-33.0); MEAN CORPUSCULAR HGB CONC 33 g/dl (31.0-36.0); MEAN CORPUSCULAR VOLUME 97 fL (82-100); MONOCYTES # (AUTO) 0.6 /CMM (0.1-1.30); MONOCYTES % (AUTO) 8.7 % (2.0-12.0); NEUTROPHILS # (AUTO) 5.2 /CMM (1.8-8.9); NEUTROPHILS % (AUTO) 71.2 % (43.0-81.0); PLATELET COUNT (AUTO) 215 /CMM (150-450); RDW COEFFICIENT OF VARIATION 15.5 (11.5-15.0); RED BLOOD CELL COUNT(AUTO) 2.41 MIL/uL (4.0-5.2); WHITE BLOOD COUNT (AUTO) 7.3 K/uL (4.3-11.0)
[2016-10-09 12:01] LABS: CALCIUM, SERUM 8.5 mg/dL (8.5-10.1); CREATININE 1.9 mg/dL (0.6-1.3); PHOSPHORUS 4.1 mg/dL (2.5-4.9); POTASSIUM 3.1 mmol/L (3.5-5.1)
--- NOTE | 2016-10-09 13:05 | NUR ---
TELE1/VICTIM WITNESS ADMINISTRATOR - COMPLETED DIALYSIS TX RENDERED. REMOVED 950 ML OF FLUID. BP 92/48, HR 84. ON GOING MONITORING.
[2016-10-09] MEDS ORDERED: IV NS 0.9% 250 ML IV ONE (15:36)
[2016-10-09] MEDS ORDERED: BLOOD IV SET 1 EA INFUS.SET MC ONE (15:36)
--- NOTE | 2016-10-09 16:15 | NUR ---
TELE1/RN BLOOD TRANSFUSION TRANSFUSION OF 1 UNIT OF PRBC INITIATED. ON GOING MONITORING.
[2016-10-09] MEDS ORDERED: SECONDARY IV SET 1 EA INFUS.SET MC ONE (16:24)
--- NOTE | 2016-10-09 18:30 | NUR ---
TELE1/RN TRANSFUSION COMPLETED NO ADVERSE REACTION NOTED WITH THE TRANSFUSION OF 1 UNIT OF PRBC, PT TOLERATED PROCEDURE.
[2016-10-09] MEDS: CEFTRIAXONE 1 G in IV D5W 50 ML IV SCH (18:34)
--- NOTE | 2016-10-09 19:14 | NUR ---
TELE1/RN AM SHIFT END NOTES NO ACUTE CHANGE OF CONDITION NOTED DURING THE SHIFT. ALL NEEDS MET. PT ENDORSED TO PM NURSE TO CONTINUE CARE. CL WITHIN REACHED, SAFETY MAINTAINED AND ISOLATION OBSERVED.
[2016-10-09] MEDS ORDERED: ACETAMINOPHEN 650 MG/20.3 ML UDC ONE (19:43)
[2016-10-09] MEDS: ACETAMINOPHEN 650 MG/20.3 ML UDC NG PRN (19:48)
--- NOTE | 2016-10-09 19:54 | NUR ---
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 DR. ARMAS CALLED NEW ORDERS RECEIVED AND CARRIED OUT.
[2016-10-09] MEDS ORDERED: HYDROCODONE/APAP 5/325MG 1 EACH TABLET PO PRN (20:00)
[2016-10-09] MEDS ORDERED: MORPHINE SULFATE INJ 2 MG/ML DISP.SYRIN IM PRN (20:00)
--- NOTE | 2016-10-09 21:05 | NUR ---
RT NO ANY RESP DISTRESS, LUNG WAS CLEAR , I DIDN'T SUCTION, SHE DOESN'T NEED.FAMILY WAS IN THE ROOM. Addendum: 10/09/16 at 2107 by DAWIT ARREDONDO RT Amended: Links added.
[2016-10-10] VITALS (8 sets, daily range): BP systolic 93–97; BP diastolic 42–50
[2016-10-10] MEDS: METOCLOPRAMIDE HCL 10 MG/10 ML UDC GT SCH ×4 (00:17→17:44)
[2016-10-10] MEDS: IPRATROPIUM NEB FS 0.5 MG/2.5 ML AMPUL.NEB IH SCH ×4 (01:12→20:12)
[2016-10-10] MEDS: ALBUTEROL FS 2.5 MG/0.5 ML VIAL.NEB IH SCH ×4 (01:13→20:12)
--- NOTE | 2016-10-10 01:22 | NUR ---
RT PT SUCTIONED AND HER SECRETION WAS WHITE/YELLOW , THICK AND MODERATE. NO RESP DISTRESS Addendum: 10/10/16 at 0124 by DAWIT ARREDONDO RT Amended: Links added.
[2016-10-10] MEDS: MEROPENEM 500 MG in IV NS 0.9% 50 ML IV SCH ×2 (05:10→17:44)
[2016-10-10] MEDS ORDERED: ACETAMINOPHEN 650 MG/20.3 ML UDC ONE (05:17)
[2016-10-10] MEDS: MIDODRINE HCL (5MG) 5 MG TABLET PO SCH ×3 (05:17→22:27)
[2016-10-10] MEDS: RENAL NOVASOURCE 1,000 ML BOTTLE GT PRN (05:17)
[2016-10-10] MEDS: ACETAMINOPHEN 650 MG/20.3 ML UDC NG PRN (05:20)
--- NOTE | 2016-10-10 07:20 | NUR ---
RN INITIAL NOTES: Rec'd pt on bed, HOB elevated, not in any distress, able to make needs known. Pt on mech vent via trach (Portex 7) w/ ff settings: AC 18, TV 500, FiO2 40%, PEEP 0, saturating at 100%. On telemonitor, Afib, HR 94 bpm. Has patent & intact PEG, on continuous tube feeding Novasource at 35 cc/hr infusing well. Pt has LFA G20 SL, flushed, patent & intact w/ no signs of infection/ infiltration noted. Provided comfort & safety measures. Needs attended. Call light placed w/in reach. Bed kept low & in locked position. Will turn, reposition & offload heels as per protocol. Will continue to monitor.
[2016-10-10 07:50] LABS: BASOPHILS % (AUTO) 0.5 % (0.0-2.0); EOSINOPHILS # (AUTO) 0.1 /CMM (0.0-0.7); EOSINOPHILS % (AUTO) 0.7 % (0.0-6.0); HEMATOCRIT 28 % (33-45); HEMOGLOBIN 9.1 g/dL (11.5-14.8); LYMPHOCYTES # (AUTO) 1.1 /CMM (0.8-4.8); LYMPHOCYTES % (AUTO) 14.2 % (20.0-44.0); MEAN CORPUSCULAR HEMOGLOBIN 31 PG (26.0-33.0); MEAN CORPUSCULAR HGB CONC 33 g/dl (31.0-36.0); MEAN CORPUSCULAR VOLUME 96 fL (82-100); MONOCYTES # (AUTO) 0.8 /CMM (0.1-1.30); MONOCYTES % (AUTO) 10.7 % (2.0-12.0); NEUTROPHILS # (AUTO) 5.9 /CMM (1.8-8.9); NEUTROPHILS % (AUTO) 73.9 % (43.0-81.0); PLATELET COUNT (AUTO) 206 /CMM (150-450); WHITE BLOOD COUNT (AUTO) 7.9 K/uL (4.3-11.0)
[2016-10-10] MEDS: PANTOPRAZOLE 40 MG/PACK PACK GT SCH (08:53)
[2016-10-10] MEDS: APIXABAN 2.5 MG TABLET PO SCH ×2 (08:53→17:44)
[2016-10-10] MEDS: ASCORBIC ACID 500 MG TABLET GT SCH (08:53)
[2016-10-10] MEDS: ZINC SULFATE 220 MG CAPSULE GT SCH (08:53)
[2016-10-10] MEDS: LACTOBACILLUS RHAMNOSUS GG 1 EACH CAP.SPRINK PO SCH ×2 (08:53→17:44)
[2016-10-10] MEDS: LEVETIRACETAM SOL (5 ML) 100 MG/ML UDC GT SCH ×2 (08:53→22:27)
[2016-10-10] MEDS: VIT B CMPLX 3/FA/VIT C/BIOTIN 1 TAB TABLET GT SCH (08:53)
[2016-10-10] MEDS: CALCITRIOL 0.25 MCG CAPSULE GT SCH (08:53)
[2016-10-10] MEDS: PROSOURCE / PROSTAT (PYXIS) 30 ML UDC GT SCH (08:53)
[2016-10-10] MEDS: BUMETANIDE (1 MG) 1 MG TABLET GT SCH (08:53)
[2016-10-10] MEDS: METOPROLOL TARTRATE 25 MG TABLET GT SCH ×2 (08:54→21:00)
[2016-10-10] MEDS: DOCUSATE SODIUM LIQ 100 MG/10 ML UDC GT SCH ×2 (08:54→17:00)
[2016-10-10] MEDS: Z GUARD REMEDY 2 OZ OINT TP SCH (09:04)
[2016-10-10] MEDS: HYDROGEL DRESSING 90 GM TUBE TP SCH (09:04)
[2016-10-10] MEDS: NEOMY SULF/BACITRAC ZN/POLY 15 GM TUBE TP SCH (09:04)
[2016-10-10] MEDS: SILDENAFIL CITRATE 20 MG TABLET GT SCH ×3 (09:07→17:44)
[2016-10-10 09:31] LABS: CALCIUM, SERUM 8.7 mg/dL (8.5-10.1); CREATININE 1.5 mg/dL (0.6-1.3); MAGNESIUM 1.9 mg/dL (1.8-2.4); PHOSPHORUS 2.9 mg/dL (2.5-4.9); POTASSIUM 3.1 mmol/L (3.5-5.1)
[2016-10-10] MEDS ORDERED: EPOETIN ALFA (10,000 UNIT) 10,000 UNIT/ML VIAL SQ ONE (12:00)
[2016-10-10] MEDS ORDERED: POTASSIUM CHLORIDE 20 MEQ POWDER PACKET GT ONE (12:00)
[2016-10-10] MEDS: CEFTRIAXONE 1 G in IV D5W 50 ML IV SCH (17:44)
--- NOTE | 2016-10-10 19:15 | NUR ---
RN CLOSING NOTES: No acute changes noted w/in shift. Pt tolerated mech vent saturating at 100%. Secretions suctioned. On telemonitor, still Afib. PEG kept patent & intact, on continuous tube feeding Novasource at 35 cc/hr tolerated well. LFA G20 SL, kept patent & intact w/ no signs of infection/ infiltration noted. Kept well rested. Needs attended. Call light placed w/in reach. Bed kept low & in locked position. Wound care done. Turned, repositioned & offloaded heels. Will endorse to PM RN for CONNOR.
[2016-10-11] VITALS (7 sets, daily range): BP systolic 74–105; BP diastolic 34–47
[2016-10-11] MEDS: METOCLOPRAMIDE HCL 10 MG/10 ML UDC GT SCH ×4 (00:59→17:25)
[2016-10-11] MEDS: IPRATROPIUM NEB FS 0.5 MG/2.5 ML AMPUL.NEB IH SCH ×4 (01:53→18:58)
[2016-10-11] MEDS: ALBUTEROL FS 2.5 MG/0.5 ML VIAL.NEB IH SCH ×4 (01:53→18:58)
[2016-10-11] MEDS: MIDODRINE HCL (5MG) 5 MG TABLET PO SCH ×3 (06:07→20:54)
[2016-10-11] MEDS: MEROPENEM 500 MG in IV NS 0.9% 50 ML IV SCH ×2 (06:08→06:10)
[2016-10-11 07:04] LABS: BASOPHILS # (AUTO) 0.1 /CMM (0.0-0.2); BASOPHILS % (AUTO) 0.9 % (0.0-2.0); EOSINOPHILS # (AUTO) 0.1 /CMM (0.0-0.7); EOSINOPHILS % (AUTO) 0.9 % (0.0-6.0); HEMATOCRIT 28 % (33-45); HEMOGLOBIN 9.1 g/dL (11.5-14.8); LYMPHOCYTES # (AUTO) 1.4 /CMM (0.8-4.8); LYMPHOCYTES % (AUTO) 13.5 % (20.0-44.0); MEAN CORPUSCULAR HEMOGLOBIN 32 PG (26.0-33.0); MEAN CORPUSCULAR HGB CONC 33 g/dl (31.0-36.0); MEAN CORPUSCULAR VOLUME 97 fL (82-100); MONOCYTES # (AUTO) 0.9 /CMM (0.1-1.30); MONOCYTES % (AUTO) 9.1 % (2.0-12.0); NEUTROPHILS # (AUTO) 7.7 /CMM (1.8-8.9); NEUTROPHILS % (AUTO) 75.6 % (43.0-81.0); PLATELET COUNT (AUTO) 215 /CMM (150-450); RDW COEFFICIENT OF VARIATION 16.1 (11.5-15.0); RED BLOOD CELL COUNT(AUTO) 2.86 MIL/uL (4.0-5.2); WHITE BLOOD COUNT (AUTO) 10.1 K/uL (4.3-11.0)
--- NOTE | 2016-10-11 07:15 | NUR ---
RN INITIAL NOTE PT RECEIVED IN BED, SLEEPING. NO S/S OF PAIN OR DISCOMFORT. REPSIRATIONS ARE EVEN AND UNLABORED. NO S/S OF RESPIRATORY DISTRESS OR SOB. PT HAS TRACH, PORTEX #7, AC-18, TV-500, FI02-40, PEEP 0. TOLERATING SETTINGS WELL. PT IS A-FIB ON TELE MONITOR. GTUBE, FLUSHED, PATENT. PLACEMENT VERIFIED.RUNNING NOVASOURCE @35ML/HR. NO RESIDUALS. IV SITE FLUSHED, PATENT. SKIN IS WARM AND DRY TO TOUCH. SAFETY PRECAUTIONS IN PLACE, BED IN LOCKED, LOW POSITION, TWO SIDE RAILS UP. CALL LIGHT WITHIN EASY REACH WILL CONTINUE TO MONITOR.
[2016-10-11 07:31] LABS: CALCIUM, SERUM 8.6 mg/dL (8.5-10.1); CREATININE 1.8 mg/dL (0.6-1.3); PHOSPHORUS 3.3 mg/dL (2.5-4.9); POTASSIUM 3.5 mmol/L (3.5-5.1)
[2016-10-11] MEDS: METOPROLOL TARTRATE 25 MG TABLET GT SCH ×2 (09:00→20:51)
[2016-10-11] MEDS: LEVETIRACETAM SOL (5 ML) 100 MG/ML UDC GT SCH ×2 (09:04→20:54)
[2016-10-11] MEDS: CALCITRIOL 0.25 MCG CAPSULE GT SCH (09:04)
[2016-10-11] MEDS: BUMETANIDE (1 MG) 1 MG TABLET GT SCH (09:04)
[2016-10-11] MEDS: PROSOURCE / PROSTAT (PYXIS) 30 ML UDC GT SCH (09:04)
[2016-10-11] MEDS: VIT B CMPLX 3/FA/VIT C/BIOTIN 1 TAB TABLET GT SCH (09:04)
[2016-10-11] MEDS: ASCORBIC ACID 500 MG TABLET GT SCH (09:04)
[2016-10-11] MEDS: NEOMY SULF/BACITRAC ZN/POLY 15 GM TUBE TP SCH (09:05)
[2016-10-11] MEDS: APIXABAN 2.5 MG TABLET PO SCH ×2 (09:05→17:25)
[2016-10-11] MEDS: ZINC SULFATE 220 MG CAPSULE GT SCH (09:05)
[2016-10-11] MEDS: LACTOBACILLUS RHAMNOSUS GG 1 EACH CAP.SPRINK PO SCH ×2 (09:05→17:25)
[2016-10-11] MEDS: DOCUSATE SODIUM LIQ 100 MG/10 ML UDC GT SCH ×2 (09:05→17:25)
[2016-10-11] MEDS: Z GUARD REMEDY 2 OZ OINT TP SCH (09:05)
[2016-10-11] MEDS: SILDENAFIL CITRATE 20 MG TABLET GT SCH ×4 (09:05→17:25)
[2016-10-11] MEDS: PANTOPRAZOLE 40 MG/PACK PACK GT SCH (09:05)
[2016-10-11] MEDS: HYDROGEL DRESSING 90 GM TUBE TP SCH (09:05)
[2016-10-11] MEDS: ACETAMINOPHEN 650 MG/20.3 ML UDC NG PRN (14:24)
--- NOTE | 2016-10-11 17:20 | NUR ---
Female pt tolerated current vent settings well. No changes made. Suctioned moderate amount of clear thin secretions. Vent is plugged into a red outlet, alarms are set and audible. BMV is at bedside. Addendum: 10/11/16 at 1721 by KASSI FARMER RT Amended: Links added.
[2016-10-11] MEDS: CEFTRIAXONE 1 G in IV D5W 50 ML IV SCH (17:25)
[2016-10-11] MEDS ORDERED: IV NS 0.9% 1,000 ML ONE (19:00)
--- NOTE | 2016-10-11 19:23 | NUR ---
RN CLOSING NOTE ALL MD ORDERS CARRIED OUT. PT KEPT CLEAN AND DRY. SAFETY PRECAUTIONS IN PLACE AT ALL TIMES. WILL GIVE REPORT TO PM RN FOR CONNOR
--- NOTE | 2016-10-11 19:30 | NUR ---
LUMP MAKER INITIAL NOTES RECEIVED PATIENT AWAKE, NON-VERBAL, VENT DEPENDENT, ALERT AND ORIENTED. DENIES PAIN OR DISCOMFORT. NO RESPIRATORY DISTRESS NOTED. ON VENT SETTINGS AC 18, VT 500, FIO2 40%, PEEP 0. SPO2 100%. ON TELE MONITOR AFIB 100. SKIN WARM AND DRY TO TOUCH. TOLERATING GTF, GT PATENT AND INTACT, IN PLACE. PER REPORT PATIENT RECEIVED IVF BOLUS FOR LOW BP. HOB KEPT ELEVATED. SIDE RAILS UP AND LOCKED. BED KEPT AT LOWEST POSITION. CALL LIGHT KEPT WITHIN EASY REACH. WILL CONTINUE TO MONITOR.
[2016-10-12] VITALS: BP 97/52
[2016-10-12] MEDS: METOCLOPRAMIDE HCL 10 MG/10 ML UDC GT SCH ×3 (00:28→12:47)
[2016-10-12] MEDS: ALBUTEROL FS 2.5 MG/0.5 ML VIAL.NEB IH SCH ×3 (01:04→13:17)
[2016-10-12] MEDS: IPRATROPIUM NEB FS 0.5 MG/2.5 ML AMPUL.NEB IH SCH ×3 (01:04→13:17)
[2016-10-12 04:00] VITALS: BP 88/41
[2016-10-12] MEDS ORDERED: IV NS 0.9% 250 ML IV ONE (05:45)
[2016-10-12] MEDS: MIDODRINE HCL (5MG) 5 MG TABLET PO SCH ×2 (05:47→12:48)
[2016-10-12] MEDS: MEROPENEM 500 MG in IV NS 0.9% 50 ML IV SCH (05:51)
[2016-10-12] MEDS: RENAL NOVASOURCE 1,000 ML BOTTLE GT PRN (06:05)
--- NOTE | 2016-10-12 07:30 | NUR ---
RN NOTES RECEIVED PATIENT ON [facility] VENT WITH BREATHING NORMAL, EVEN AND UNLABORED. NO SOB NOTED. NO ACUTE DISTRESS NOTED. VENT SETTING REVIEWED AND VERIFIED. TOLERATED WELL. AFEBRILE. TELE MONITOR REVEALS CONTROLLED A-FIB, HD=832. IV LW 20G IS PATENT AND INTACT, NO INFILTRATION NOTED. BOWEL SOUNDS PRESENT. PULSES PRESENT. ON GT FEED, TOLERATED WELL. NO RESIDUAL NOTED. ASPIRATION PRECAUTION TAKEN. KEPT CLEAN, DRY AND COMFORTABLE. ALL NEEDS ATTENDED. SAFETY MEASURE OBSERVED. CALL LIGHT WITH IN REACH. WILL CONT TO MONITOR.
[2016-10-12 08:00] VITALS: BP 85/41
[2016-10-12] MEDS: SILDENAFIL CITRATE 20 MG TABLET GT SCH ×3 (09:00→12:51)
[2016-10-12] MEDS: METOPROLOL TARTRATE 25 MG TABLET GT SCH (09:00)
[2016-10-12] MEDS: VIT B CMPLX 3/FA/VIT C/BIOTIN 1 TAB TABLET GT SCH (09:02)
[2016-10-12] MEDS: ASCORBIC ACID 500 MG TABLET GT SCH (09:02)
[2016-10-12] MEDS: ZINC SULFATE 220 MG CAPSULE GT SCH (09:02)
[2016-10-12] MEDS: PANTOPRAZOLE 40 MG/PACK PACK GT SCH (09:02)
[2016-10-12] MEDS: LACTOBACILLUS RHAMNOSUS GG 1 EACH CAP.SPRINK PO SCH (09:02)
[2016-10-12] MEDS: DOCUSATE SODIUM LIQ 100 MG/10 ML UDC GT SCH (09:02)
[2016-10-12] MEDS: LEVETIRACETAM SOL (5 ML) 100 MG/ML UDC GT SCH (09:02)
[2016-10-12] MEDS: APIXABAN 2.5 MG TABLET PO SCH (09:02)
[2016-10-12] MEDS: Z GUARD REMEDY 2 OZ OINT TP SCH (09:03)
[2016-10-12] MEDS: NEOMY SULF/BACITRAC ZN/POLY 15 GM TUBE TP SCH (09:05)
[2016-10-12] MEDS ORDERED: CALCITRIOL ORAL SOLUTION 1 MCG/ML GT SCH ×2 (09:28→09:30)
[2016-10-12] MEDS: BUMETANIDE (1 MG) 1 MG TABLET GT SCH (09:39)
[2016-10-12] MEDS: PROSOURCE / PROSTAT (PYXIS) 30 ML UDC GT SCH (09:39)
[2016-10-12] MEDS: HYDROGEL DRESSING 90 GM TUBE TP SCH (10:32)
[2016-10-12] MEDS ORDERED: MERO500V IV (10:42)
[2016-10-12] MEDS ORDERED: LACT1CAP72 PO (10:42)
[2016-10-12] MEDS ORDERED: APIX2.5T PO (10:42)
[2016-10-12] MEDS ORDERED: NEOM15OI3 TP (10:42)
[2016-10-12 12:00] VITALS: BP 118/64
[2016-10-12 16:00] VITALS: BP_SYST 113; BP_SYST 130; BP_DIAS 52
--- NOTE | 2016-10-12 16:50 | NUR ---
RN NOTES PATIENT DISCHARGED IN STABLE CONDITION WITH BREATHING NORMAL, EVEN AND UNLABORED. NO SOB NOTED. NO ACUTE DISTRESS NOTED. NO PAIN, NO DISCOMFORT NOTED . DISCHARGE INSTRUCTION GIVEN TO XAVI VIERA WITH FEEDBACK. UNDERSTOOD WELL. PATIENT LEFT VIA AMBULANCE IN STABLE CONDITION.
== END 2016-10-12 16:50 | DRG 870 ==
LOC: ER 16:27 → TELE1 17:00 → TELE-TD 18:46 → TELE1 10-03 14:15
PROVIDERS: ADMIT Internal Medicine; ATTEND Internal Medicine Nephrology
PROC: 5A1955Z Respiratory Ventilation, Greater than 96 Consecutive Hours (ICD-10-PCS; principal; 2016-10-02)
PROC: 5A1D60Z (ICD-10-PCS; 2016-10-03)
PROC: 0W9G3ZX Drainage of Peritoneal Cavity, Percutaneous Approach, Diagnostic (ICD-10-PCS; 2016-10-04)
PROC: 30233N1 Transfusion of Nonautologous Red Blood Cells into Peripheral Vein, Percutaneous Approach (ICD-10-PCS; 2016-10-09)
DX: A41.9 Sepsis, unspecified organism (principal); N18.6 End stage renal disease; I12.0 Hypertensive chronic kidney disease with stage 5 chronic kidney disease or end stage renal disease; J96.11 Chronic respiratory failure with hypoxia; Z99.11 Dependence on respirator [ventilator] status; N39.0 Urinary tract infection, site not specified; J90 Pleural effusion, not elsewhere classified; J98.11 Atelectasis; Z99.2 Dependence on renal dialysis; Z93.1 Gastrostomy status; Z86.73 Personal history of transient ischemic attack (TIA), and cerebral infarction without residual deficits; Z93.0 Tracheostomy status; K74.60 Unspecified cirrhosis of liver; I48.91 Unspecified atrial fibrillation; K21.9 Gastro-esophageal reflux disease without esophagitis; I95.89 Other hypotension; E11.22 Type 2 diabetes mellitus with diabetic chronic kidney disease; R13.10 Dysphagia, unspecified; D64.9 Anemia, unspecified; E78.5 Hyperlipidemia, unspecified; I27.2 Other secondary pulmonary hypertension; I70.0 Atherosclerosis of aorta
CPT/HCPCS: 31720; 36415; 71010-TC; 76942-TC; 80048-TC; 80053-TC; 80076-TC; 80150; 80202-TC; 81000-TC; 83605-TC; 83735-TC; 84100-TC; 84484-TC; 85025-TC; 85730-TC; 86850-TC; 86921-TC; 87040-TC; 87081-TC; 87086-TC; 87186-TC; 90935-TC; 93307-TC; 94002-TC; 94003-TC; 94760-TC; 94762-TC; 94799-TC; 99082-TC; A4216; A4606; A6248; A6253; A6402; A6403; J0278; J0456; J0696; J0885; J1953; J1956; J2185; J7030; J7050; J7060; J8597; P9016-BL; Z7610

== ENCOUNTER 2016-10-14 14:21 | Inpatient (IN) | payer MEDICARE, OTHER ==
[~2016-10-14] VITALS: Ht 162.6 cm; Wt 60.8 kg
[~2016-10-14 14:21] MED LIST changes: +APIX2.5T PO; +LACT1CAP72 PO; +MERO500V IV; +NEOM15OI3 TP
--- NOTE | 2016-10-14 14:49 | NUR ---
BIB EMS FROM [facility]. NAD NOTED. PT ALERT TO NAME, ON VENTILATOR. RT AT BEDSIDE. HR CURRENTLY AT 123. PT PLACED ON MONITOR. CONTINUE TO MONITOR. MD AT BEDSIDE FOR EVAL.
[2016-10-14] MEDS ORDERED: APIX2.5T GT (14:54)
[2016-10-14] MEDS ORDERED: ASCO500S2 GT (14:54)
[2016-10-14] MEDS ORDERED: MERO500V3 IV (14:54)
[2016-10-14] MEDS ORDERED: ZINC220C8 GT (14:54)
[2016-10-14 15:08] LABS: BASOPHILS # (AUTO) 0.1 /CMM (0.0-0.2); BASOPHILS % (AUTO) 0.5 % (0.0-2.0); EOSINOPHILS # (AUTO) 0.1 /CMM (0.0-0.7); EOSINOPHILS % (AUTO) 0.6 % (0.0-6.0); HEMATOCRIT 27 % (33-45); HEMOGLOBIN 9.2 g/dL (11.5-14.8); LYMPHOCYTES # (AUTO) 1.5 /CMM (0.8-4.8); LYMPHOCYTES % (AUTO) 8.6 % (20.0-44.0); MEAN CORPUSCULAR HEMOGLOBIN 33 PG (26.0-33.0); MEAN CORPUSCULAR HGB CONC 34 g/dl (31.0-36.0); MEAN CORPUSCULAR VOLUME 95 fL (82-100); MONOCYTES # (AUTO) 0.7 /CMM (0.1-1.30); NEUTROPHILS # (AUTO) 14.7 /CMM (1.8-8.9); NEUTROPHILS % (AUTO) 86.3 % (43.0-81.0); PLATELET COUNT (AUTO) 242 /CMM (150-450); RDW COEFFICIENT OF VARIATION 15.2 (11.5-15.0); RED BLOOD CELL COUNT(AUTO) 2.81 MIL/uL (4.0-5.2); WHITE BLOOD COUNT (AUTO) 17.1 K/uL (4.3-11.0)
[2016-10-14 15:17] LABS: ALANINE AMINOTRANSFERASE 89 U/L (12-78); ALBUMIN 2.2 g/dL (3.4-5.0); ALKALINE PHOSPHATASE 399 U/L (46-116); ASPARTATE AMINOTRANSFERASE 117 U/L (15-37); BILIRUBIN,DIRECT 0.1 mg/dL (0.0-0.2); BILIRUBIN,TOTAL 0.4 mg/dL (0.2-1.0); CALCIUM, SERUM 9.4 mg/dL (8.5-10.1); CARBON DIOXIDE 29 mmol/L (21-32); CHLORIDE 100 mmol/L (98-107); CREATININE 1.8 mg/dL (0.6-1.3); GLUCOSE 137 mg/dL (74-106); POTASSIUM 3.5 mmol/L (3.5-5.1); SODIUM SERUM 137 mmol/L (136-145); TOTAL PROTEIN, SERUM 6.9 g/dL (6.4-8.2)
[2016-10-14 15:19] LABS: TROPONIN I < 0.017 ng/mL (0.00-0.056)
[2016-10-14 15:20] LABS: INR 1.25 (0.87-1.13); PROTHROMBIN TIME 13.1 SECS (9.5-12.7); UREA NITROGEN, BLOOD 86 mg/dL (7-18)
--- NOTE | 2016-10-14 15:29 | NUR ---
CARY CATH INSERTED, URINE SENT TO LAB
[2016-10-14 15:32] LABS: APPEARANCE,URINE Cloudy (CLEAR); BILIRUBIN,URINE Negative (NEGATIVE); BLOOD, URINE Negative Ery/uL (NEGATIVE); COLOR,URINE Yellow (YELLOW); KETONES,URINE Negative (NEGATIVE); LEUKOCYTE ESTERASE ,URINE Negative (NEGATIVE); NITRITE, URINE Negative (NEGATIVE); PROTEIN,URINE 100 mg/dl (NEGATIVE); UGLUCOSE Negative (NEGATIVE); UROBILINOGEN,URINE 0.2 EU/dL (0.2)
[2016-10-14 15:36] LABS: BACTERIA,URINE Rare /HPF (None Seen); RBC,URINE 0-2 /HPF (0-2); SQUAMOUS EPITHELIAL CELL,UR Few /HPF (None Seen); WBC,URINE 0-2 /HPF (0-3)
[2016-10-14 15:39] LABS: MAGNESIUM 2.1 mg/dL (1.8-2.4); PHOSPHORUS 4.5 mg/dL (2.5-4.9)
--- NOTE | 2016-10-14 16:10 | NUR ---
CALLED RT FOR ABG
--- NOTE | 2016-10-14 16:12 | NUR ---
DR.KASHANI BELTRAN
--- NOTE | 2016-10-14 16:15 | NUR ---
RT AT BEDSIDE FOR ABG
[2016-10-14] MEDS ORDERED: IV SET PRIMARY PUMP SET 1 EA INFUS.SET MC ONE ×2 (16:26→21:48)
[2016-10-14 16:30] VITALS: BP 94/53
[2016-10-14 16:30] LABS: ABG BASE EXCESS 0.4 mmol/L; ABG OXYGEN SATURATION 98.3 % (92.0-98.5); ABG PCO2 29.7 mmHg (35.0-45.0); ABG PH 7.507 (7.350-7.450); ABG PO2 129.1 mmHg (75.0-100.0); AaDO2 121.9 mmHg; MetHb 0.5 % (0.0-1.5); O2Hb 96.8 % (94.0-97.0); PEEP,BG 5 cm H2O; SITE, ABG Right Radial; VT, ABG 500 mL
[2016-10-14] MEDS ORDERED: ALBUMIN 25% 12.5 GM in PREMIX 1 EA IV ONE ×2 (16:30→17:05)
--- NOTE | 2016-10-14 16:56 | NUR ---
REPORT GIVEN TO PRANEETH VIERA FOR CONNOR
[2016-10-14] MEDS ORDERED: ALBUMIN 25% 12.5 GM in PREMIX 1 EA IV PRN (17:00)
[2016-10-14 18:30] VITALS: BP 90/55
--- NOTE | 2016-10-14 19:00 | NUR ---
RN Notes received pt on bed, aox2, moths words, able to nod yes/no, mech vet, no sob, on fluid dynamicist afib 87, g tube site bleeding, raw, site cleaned, dressing changed, abdomen distended, pt was dirty, had a BM, loose greenish color, diaper changed, f/c in place, draining urine via gravity, yellow color, sacral wound open, with tunnelling, yellow discharge noted, cleaned and covered with Mepilex, on Isoflex mattress, bed in low and locked position, call light within reach, will endorse to date night sitter nurse. vs stable, no fever.
--- NOTE | 2016-10-14 19:40 | NUR ---
RN NOTE SPOKE WITH DR ARMAS AND RECEIVED ADMITTING ORDERS VIA TELEPHONE ORDERS. READBACK COMPLETED.
--- NOTE | 2016-10-14 19:45 | NUR ---
RN NOTE RECEIVED PT FROM ANNI FOR CONTINUITY OF CARE.
[2016-10-14 20:00] VITALS: BP 95/55
[2016-10-14] MEDS ORDERED: RENAL NOVASOURCE 1,000 ML BOTTLE GT PRN (20:30)
[2016-10-14] MEDS ORDERED: ALBUTEROL FS 2.5 MG/0.5 ML VIAL.NEB NEB PRN (20:30)
[2016-10-14] MEDS ORDERED: LACTULOSE 10 G/15 ML UDC (PYXIS) GT PRN (20:30)
[2016-10-14] MEDS ORDERED: IPRATROPIUM NEB FS 0.5 MG/2.5 ML AMPUL.NEB NEB PRN (20:30)
[2016-10-14 20:54] VITALS: BP 90/55
[2016-10-14] MEDS ORDERED: MEROPENEM 500 MG VIAL IV SCH (21:00)
[2016-10-14] MEDS: METOPROLOL TARTRATE 25 MG TABLET GT SCH (21:00)
[2016-10-14] MEDS: SILDENAFIL CITRATE 20 MG TABLET GT SCH (21:00)
[2016-10-14] MEDS ORDERED: SECONDARY IV SET 1 EA INFUS.SET MC ONE (21:48)
[2016-10-14] MEDS ORDERED: IV NS 0.9% 250 ML IV ONE (21:48)
[2016-10-14] MEDS: LEVETIRACETAM SOL (5 ML) 100 MG/ML UDC GT SCH (21:55)
[2016-10-14] MEDS: MEROPENEM 500 MG in IV NS 0.9% 50 ML IV SCH (21:56)
[2016-10-14] MEDS: MIDODRINE HCL (5MG) 5 MG TABLET GT SCH (21:56)
[2016-10-14] MEDS: RENAL NOVASOURCE 1,000 ML BOTTLE GT PRN (22:00)
[2016-10-14] MEDS: METOCLOPRAMIDE HCL 10 MG/10 ML UDC GT SCH (23:39)
[2016-10-15] VITALS: BP 94/49
[2016-10-15] MEDS: ALBUTEROL FS 2.5 MG/0.5 ML VIAL.NEB NEB SCH ×4 (01:59→19:36)
[2016-10-15] MEDS: IPRATROPIUM NEB FS 0.5 MG/2.5 ML AMPUL.NEB IH SCH ×4 (01:59→19:36)
[2016-10-15 04:00] VITALS: BP 85/46
[2016-10-15] MEDS: SILDENAFIL CITRATE 20 MG TABLET GT SCH ×3 (05:00→20:33)
[2016-10-15] MEDS: PANTOPRAZOLE 40 MG/PACK PACK GT SCH (05:37)
[2016-10-15] MEDS: MIDODRINE HCL (5MG) 5 MG TABLET GT SCH ×3 (05:40→20:33)
[2016-10-15] MEDS: METOCLOPRAMIDE HCL 10 MG/10 ML UDC GT SCH ×4 (05:40→23:17)
--- NOTE | 2016-10-15 06:31 | NUR ---
RN CLOSING NOTE PT REMAINS IN NO ACUTE DISTRESS IN BED. PT DID NOT HAVE ANY SIGNIFICANT CHANGE IN CONDITION DURING SHIFT. ALL NEEDS MET ALL ORDERS CARRIED OUT. WILL ENDORSE TO AM RN FOR CONTINUITY OF CARE.
--- NOTE | 2016-10-15 07:00 | NUR ---
RN NOTES RECEIVED PT ON BED, VENT DEPENDANT , TRACH CARE DONE, TOLERATING CURRENT VENT SETTING WELL, CARY DARNING TO GRAVITY , NOVASOURCE AT 35CC/HR RUNNING VIA GT ,CONTINUE TO MONITOR RESIDUAL , R CHEST WALL PERMCATH AND L HAND AND R HAND IV SITE CDI, CONTINUE TO MONITOR PT CLOSELY AND NOTIFY MD FOR ANY SIGNIFICANT CHANGES .
[2016-10-15 07:31] LABS: BASOPHILS # (AUTO) 0.1 /CMM (0.0-0.2); BASOPHILS % (AUTO) 0.5 % (0.0-2.0); EOSINOPHILS # (AUTO) 0.1 /CMM (0.0-0.7); EOSINOPHILS % (AUTO) 1.1 % (0.0-6.0); HEMATOCRIT 24 % (33-45); HEMOGLOBIN 7.9 g/dL (11.5-14.8); LYMPHOCYTES # (AUTO) 1.5 /CMM (0.8-4.8); LYMPHOCYTES % (AUTO) 13.6 % (20.0-44.0); MEAN CORPUSCULAR HEMOGLOBIN 31 PG (26.0-33.0); MEAN CORPUSCULAR HGB CONC 33 g/dl (31.0-36.0); MEAN CORPUSCULAR VOLUME 95 fL (82-100); MONOCYTES # (AUTO) 0.6 /CMM (0.1-1.30); MONOCYTES % (AUTO) 5.8 % (2.0-12.0); NEUTROPHILS # (AUTO) 8.6 /CMM (1.8-8.9); PLATELET COUNT (AUTO) 232 /CMM (150-450); RDW COEFFICIENT OF VARIATION 15.9 (11.5-15.0); RED BLOOD CELL COUNT(AUTO) 2.51 MIL/uL (4.0-5.2); WHITE BLOOD COUNT (AUTO) 10.9 K/uL (4.3-11.0)
[2016-10-15 08:00] VITALS: BP 90/48
[2016-10-15 08:03] LABS: CALCIUM, SERUM 8.8 mg/dL (8.5-10.1); CREATININE 1.9 mg/dL (0.6-1.3)
--- NOTE | 2016-10-15 08:13 | NUR ---
WOUND CARE CONSULT: PT PRESENTS WITH STAGE IV ULCER TO SACRUM, PRESENT ON ADMISSION. RECOMMENDATIONS MADE FOR WOUND CARE AND SKIN PROTECTION. DISCUSSED WITH NURSING STAFF. PT ON ISOFLEX LOW AIRLOSS BED. SURGICAL CONSULT RECOMMENDED. IN AGREEMENT WITH PLAN OF CARE. Addendum: 10/15/16 at 0816 by ALONSO GARZA WNDNU Amended: Links added.
[2016-10-15] MEDS ORDERED: HYDROGEL DRESSING 90 GM TUBE TP PRN (08:30)
[2016-10-15] MEDS: ASCORBIC ACID SYRUP 500 MG/5 ML UDC GT SCH (08:39)
[2016-10-15] MEDS: ACETAMINOPHEN 650 MG/20.3 ML UDC GT SCH (08:39)
[2016-10-15] MEDS: ZINC SULFATE 220 MG CAPSULE GT SCH (08:39)
[2016-10-15] MEDS: BUMETANIDE (1 MG) 1 MG TABLET GT SCH (08:39)
[2016-10-15] MEDS: DOCUSATE SODIUM LIQ 100 MG/10 ML UDC GT SCH ×2 (08:39→16:15)
[2016-10-15] MEDS: PROSOURCE / PROSTAT (PYXIS) 30 ML UDC GT SCH (08:39)
[2016-10-15] MEDS: VIT B CMPLX 3/FA/VIT C/BIOTIN 1 TAB TABLET GT SCH (08:40)
[2016-10-15] MEDS: METOPROLOL TARTRATE 25 MG TABLET GT SCH ×2 (08:40→20:33)
[2016-10-15] MEDS: LEVETIRACETAM SOL (5 ML) 100 MG/ML UDC GT SCH ×2 (08:40→20:32)
[2016-10-15] MEDS: CALCITRIOL ORAL SOLUTION 1 MCG/ML GT SCH (08:42)
[2016-10-15] MEDS: APIXABAN 2.5 MG TABLET GT SCH ×2 (08:42→16:14)
[2016-10-15] MEDS: MEROPENEM 500 MG in IV NS 0.9% 50 ML IV SCH ×2 (08:43→20:31)
[2016-10-15] MEDS: Z GUARD REMEDY 2 OZ OINT TP SCH (08:44)
[2016-10-15] MEDS ORDERED: SECONDARY IV SET 1 EA INFUS.SET MC ONE (10:26)
[2016-10-15] MEDS: POTASSIUM CL. PREMIX PERIPHER. 50 ML IV SCH ×3 (10:42→13:10)
[2016-10-15] MEDS: HYDROGEL DRESSING 90 GM TUBE TP SCH (10:48)
[2016-10-15 12:00] VITALS: BP 85/46
[2016-10-15] MEDS: ACETYLCYSTEINE 10% SOLN 400 MG/4 ML VIAL NEB SCH ×2 (15:52→23:26)
[2016-10-15 16:00] VITALS: BP 92/53
--- NOTE | 2016-10-15 16:00 | NUR ---
RN NOTES PER RADIOLOGIST HAROON HAS TO BE ON HOLD OVER THE WEEKEND IN ORDER FOR PT TO HAVE PARACENTESIS ON TUESDAY . DR MONTOYA PAGED TWICE TO GET THE ORDER AND NO RETURN CALL YET .
--- NOTE | 2016-10-15 18:17 | NUR ---
RN NOTES PT STABLE ,ABDOMEN DISTENDED BUT SOFT , NO TF RESIDUAL NOTED, RESPIRATION EVEN AND UNLABORED, CARY DRAINING TO GRAVITY , MEDICATED PER MD ORDER , NO SIGNIFICANT CHANGES NOTED ON THIS SHIFT .
[2016-10-15 20:00] VITALS: BP 77/40
--- NOTE | 2016-10-15 20:00 | NUR ---
RN NOTES RECEIVED ASLEEP, AROUSABLE, FOLLOWS COMMAND, WITH TRACH PORTEX TO VENT; G TUBE TO TF, TF TOLERATED WELL, INCREASED DOSE TO 45/HR ORDERED; CARY CATH TAPED TO THIGH TO BAG BY GRAVITY; HEELS OFFLOADED; A FIB ON MONITOR CONTROLLED RATE; SUCTIONED ORALLY AND TRACHEALLY; REPOSITIONED IN BED. PAGED DR. ADAM FOR DECREASED BP 77/40, PX DENIED CHEST PAIN, DIZZINESS, PAIN.
[2016-10-15] MEDS ORDERED: ALBUMIN 5% 12.5 GM in PREMIX 1 EA IV ONE (20:30)
[2016-10-15] MEDS ORDERED: DEXTROSE 50%-WATER 50 ML DISP.SYRIN IV PRN (20:30)
--- NOTE | 2016-10-15 20:30 | NUR ---
RN NOTES SPOKE WITH DR. ADAM OVER PHONE, MADE AWARE OF DECREASED BP, NEW ORDERS MADE; ALSO MADE HIIM AWARE OF CANCELLED US GUIDED PARACENTESIS TODAY AND OF RADIOLOGIST SUGGESTION TO HOLD ELIQUIS 2 DAYS PRIOR TO THE PROCEDURE, SAYS TO DISCUSS THIS WITH PRIMARY MD IN THE MORNING.
[2016-10-15] MEDS ORDERED: PLATELET IV SET 1 EA INFUS.SET MC ONE (20:58)
[2016-10-15] MEDS ORDERED: IV SET PRIMARY PUMP SET 1 EA INFUS.SET MC ONE (21:05)
[2016-10-15] MEDS ORDERED: IV NS 0.9% 250 ML IV ONE (21:34)
[2016-10-15] MEDS: RENAL NOVASOURCE 1,000 ML BOTTLE GT PRN (21:41)
[2016-10-15] MEDS: BLOOD SUGAR DIAGNOSTIC 1 EACH STRIP IN SCH (23:17)
--- NOTE | 2016-10-15 23:46 | NUR ---
RN NOTES SBP AT 80 BUT PX ASYMPTOMATIC, AWAKE, DENIED PAIN, CHEST PAIN, SOB, DIZZINESS; CONTINUED TO MONITOR; REPOSITIONED.
[2016-10-16] VITALS: BP 80/23
[2016-10-16] MEDS: IPRATROPIUM NEB FS 0.5 MG/2.5 ML AMPUL.NEB IH SCH ×4 (01:31→19:33)
[2016-10-16] MEDS: ALBUTEROL FS 2.5 MG/0.5 ML VIAL.NEB NEB SCH ×4 (01:31→19:33)
[2016-10-16 04:00] VITALS: BP 96/38
[2016-10-16] MEDS: PANTOPRAZOLE 40 MG/PACK PACK GT SCH (05:42)
[2016-10-16] MEDS: METOCLOPRAMIDE HCL 10 MG/10 ML UDC GT SCH ×4 (05:42→23:15)
[2016-10-16] MEDS: SILDENAFIL CITRATE 20 MG TABLET GT SCH ×3 (05:42→21:00)
[2016-10-16] MEDS: MIDODRINE HCL (5MG) 5 MG TABLET GT SCH ×3 (05:42→21:07)
[2016-10-16] MEDS: BLOOD SUGAR DIAGNOSTIC 1 EACH STRIP IN SCH ×4 (05:43→23:15)
--- NOTE | 2016-10-16 06:34 | NUR ---
RN NOTES HAD 2 BM LAST NIGHT, CLEANED PX AND CHANGED GOWN AND BED LINENS, CHANGED DRESSING ON THE SACRAL AREA PER PROTOCOL/MD ORDER; CHANGED DRESSING ON TRACH AND G TUBE SITES, NO NEW SKIN BREAKDOWN; CARY CARE RENDERED; SUCTIONED ORALLY AND TRACHEALLY; PIV SITES PATENT AND INTACT; REPOSITIONED; WILL ENDORSE TO NEXT RN.
[2016-10-16 06:36] LABS: BASOPHILS # (AUTO) 0.1 /CMM (0.0-0.2); BASOPHILS % (AUTO) 0.6 % (0.0-2.0); EOSINOPHILS # (AUTO) 0.2 /CMM (0.0-0.7); EOSINOPHILS % (AUTO) 1.6 % (0.0-6.0); HEMATOCRIT 24 % (33-45); LYMPHOCYTES # (AUTO) 1.4 /CMM (0.8-4.8); LYMPHOCYTES % (AUTO) 13.5 % (20.0-44.0); MEAN CORPUSCULAR HEMOGLOBIN 31 PG (26.0-33.0); MEAN CORPUSCULAR HGB CONC 33 g/dl (31.0-36.0); MEAN CORPUSCULAR VOLUME 96 fL (82-100); MONOCYTES # (AUTO) 0.7 /CMM (0.1-1.30); MONOCYTES % (AUTO) 6.5 % (2.0-12.0); NEUTROPHILS # (AUTO) 7.9 /CMM (1.8-8.9); NEUTROPHILS % (AUTO) 77.8 % (43.0-81.0); PLATELET COUNT (AUTO) 249 /CMM (150-450); RDW COEFFICIENT OF VARIATION 15.9 (11.5-15.0); RED BLOOD CELL COUNT(AUTO) 2.54 MIL/uL (4.0-5.2); WHITE BLOOD COUNT (AUTO) 10.1 K/uL (4.3-11.0)
[2016-10-16 06:50] LABS: ALBUMIN 2.3 g/dL (3.4-5.0); BILIRUBIN,TOTAL 0.6 mg/dL (0.2-1.0); CALCIUM, SERUM 8.6 mg/dL (8.5-10.1); CREATININE 1.6 mg/dL (0.6-1.3); MAGNESIUM 1.9 mg/dL (1.8-2.4); PHOSPHORUS 3.3 mg/dL (2.5-4.9); POTASSIUM 3.8 mmol/L (3.5-5.1); TOTAL PROTEIN, SERUM 6.5 g/dL (6.4-8.2)
--- NOTE | 2016-10-16 07:00 | NUR ---
RN NOTES RECEIVED ASLEEP, AROUSABLE, FOLLOWS COMMAND, WITH TRACH PORTEX TO VENT; G TUBE TO TF, TF TOLERATED WELL,CARY CATH TAPED TO THIGH TO BAG BY GRAVITY; HEELS OFFLOADED; A FIB ON MONITOR CONTROLLED RATE; SUCTIONED ORALLY AND TRACHEALLY; REPOSITIONED IN BED. SAFETY MEASURES IN PLACE.BED IN LOW AND LOCK POSITION.WILL CONTINUE TO MONITOR.
[2016-10-16] MEDS: ACETYLCYSTEINE 10% SOLN 400 MG/4 ML VIAL NEB SCH ×3 (07:55→23:27)
[2016-10-16 08:00] VITALS: BP 92/47
[2016-10-16] MEDS: PROSOURCE / PROSTAT (PYXIS) 30 ML UDC GT SCH (08:35)
[2016-10-16] MEDS: ASCORBIC ACID SYRUP 500 MG/5 ML UDC GT SCH (08:35)
[2016-10-16] MEDS: VIT B CMPLX 3/FA/VIT C/BIOTIN 1 TAB TABLET GT SCH (08:36)
[2016-10-16] MEDS: DOCUSATE SODIUM LIQ 100 MG/10 ML UDC GT SCH ×2 (08:36→16:52)
[2016-10-16] MEDS: METOPROLOL TARTRATE 25 MG TABLET GT SCH ×2 (08:36→21:00)
[2016-10-16] MEDS: BUMETANIDE (1 MG) 1 MG TABLET GT SCH (08:36)
[2016-10-16] MEDS: ZINC SULFATE 220 MG CAPSULE GT SCH (08:36)
[2016-10-16] MEDS: LEVETIRACETAM SOL (5 ML) 100 MG/ML UDC GT SCH ×2 (08:36→21:07)
[2016-10-16] MEDS: CALCITRIOL ORAL SOLUTION 1 MCG/ML GT SCH (08:37)
[2016-10-16] MEDS: HYDROGEL DRESSING 90 GM TUBE TP SCH (08:37)
[2016-10-16] MEDS: ACETAMINOPHEN 650 MG/20.3 ML UDC GT SCH (08:37)
[2016-10-16] MEDS: Z GUARD REMEDY 2 OZ OINT TP SCH (08:38)
[2016-10-16] MEDS: APIXABAN 2.5 MG TABLET GT SCH ×2 (08:42→16:56)
[2016-10-16] MEDS: MEROPENEM 500 MG in IV NS 0.9% 50 ML IV SCH ×2 (10:36→21:09)
[2016-10-16 12:00] VITALS: BP 95/52
[2016-10-16 16:00] VITALS: BP_SYST 120; BP_SYST 94; BP_DIAS 50; BP_DIAS 60
--- NOTE | 2016-10-16 17:22 | NUR ---
DISCUSSED W/ DR. HAND REGARDING RADIOLOGY PROTOCOL TO HOLD ELIQUIS OVER WEEKEND IN ORDER TO DO PARACENTESIS ON TUESDAY,PER DR. HAND OK TO HOLD IT FOR TWO DAYS IN ORDER TO DO PARACENTSIS ON TUESDAY.
--- NOTE | 2016-10-16 19:05 | NUR ---
RN OPENING NOTES: RECEIVED PT IN BED AWAKE WITH SON AT BEDSIDE. PT IS ALERT BUT IS NONVERBAL. PT CAN ONLY UNDERSTAND ITALIAN. PT IS ON TELE : A FIB 80S. PT HAS IV ON LT HAND #20 AND IS PATENT AND INTACT. PT ALSO HAS R HAND #20G AND IS PATENT AND INTACT. RIGHT HAND #20 IS BEING USED TKO. PT ALSO HAS HD CATH ON RIGHT CHEST WALL. NO SIGNS OR SYMPTOMS OF DISTRESS AT THIS TIME. CALL LIGHT WITHIN PT'S REACH. BED KEPT IN LOCKED, LOWEST POSITION, AND SIDE RAILS X 2 UP. WILL CONTINUE TO MONITOR PT.
--- NOTE | 2016-10-16 19:30 | NUR ---
pt d/c to [facility] .all m.d orders noted and carried out .klein catheter removed.report given to elijah.All belongings and d/c instructions given to patient.
[2016-10-16 20:00] VITALS: BP 93/43
[2016-10-16] MEDS ORDERED: IV SET PRIMARY PUMP SET 1 EA INFUS.SET MC ONE (20:46)
--- NOTE | 2016-10-16 23:20 | NUR ---
RN NOTES: BLOOD SUGAR WAS 126. NO COVERAGE WAS GIVEN. WILL CONTINUE TO MONITOR PT.
[2016-10-17] VITALS: BP 94/50
[2016-10-17] MEDS: ALBUTEROL FS 2.5 MG/0.5 ML VIAL.NEB NEB SCH ×4 (01:12→20:12)
[2016-10-17] MEDS: IPRATROPIUM NEB FS 0.5 MG/2.5 ML AMPUL.NEB IH SCH ×4 (01:12→20:12)
[2016-10-17] MEDS: RENAL NOVASOURCE 1,000 ML BOTTLE GT PRN (03:07)
[2016-10-17 04:00] VITALS: BP 94/46
[2016-10-17] MEDS: SILDENAFIL CITRATE 20 MG TABLET GT SCH ×3 (04:45→21:00)
[2016-10-17] MEDS: MIDODRINE HCL (5MG) 5 MG TABLET GT SCH ×3 (04:45→21:37)
[2016-10-17] MEDS: METOCLOPRAMIDE HCL 10 MG/10 ML UDC GT SCH ×3 (05:44→17:47)
[2016-10-17] MEDS: BLOOD SUGAR DIAGNOSTIC 1 EACH STRIP IN SCH ×3 (05:44→17:48)
[2016-10-17] MEDS: PANTOPRAZOLE 40 MG/PACK PACK GT SCH (05:44)
--- NOTE | 2016-10-17 07:00 | NUR ---
RN CLOSING NOTES: PT IS ON PORTEX # 7, AC 18, TV 50, FIO2 40%, AND PEEP 5.
--- NOTE | 2016-10-17 07:00 | NUR ---
RN CLOSING NOTES: ALL NEEDS WERE ATTENDED AND ANTICIPATED FOR. PT KEPT CLEAN, DRY, AND COMFORTABLE. BED KEPT IN LOCKED, LOWEST POSITION, AND SIDE RAILS X 2 UP. CARY OUTPUT WAS 200ML AND HAD 2 BM. PT HAS L HAND #20G AND IS SALINE LOCK. PT ALSO HAS IV ON R HAND #20G AND IS USED FOR TKO. BOTH IVS ARE PATENT AND INTACT. PT ALSO HAS R CHEST WALL FOR HD. ENDORSED TO AM NURSE FOR CONTINUITY OF CARE.
[2016-10-17] MEDS: ACETYLCYSTEINE 10% SOLN 400 MG/4 ML VIAL NEB SCH ×3 (07:31→23:34)
[2016-10-17 08:00] VITALS: BP 100/39
--- NOTE | 2016-10-17 08:00 | NUR ---
LEAD CLINICAL RESEARCH COORDINATOR NOTE PATIENT IN BED , ALL NEEDS ATTENDED WITH TRACH TO VENT SETTING, AMBU BAG AT HOB ATV ALL TIME , WITH F]\C TO GRAVITY WITH YELLOW COLOR URINE , ON GTUBE FEEDING ORDERED, KEEP HOB ELEVATED HAND AND RT HAND HL INTACT WITH DVT PUMPS BOTH LEGS AT ALL TIME , BED IN LOWEST AND LOCKED POSITION, CALL LIGHT WITHIN REACH , SEEN BY DR HAND WITH NEW ODDER GIVEN , PLAN OF CARE DISUSED WITH PATIENT, WILL CONT TO MONDOR CLOSELY
[2016-10-17] MEDS: MEROPENEM 500 MG in IV NS 0.9% 50 ML IV SCH ×2 (08:20→21:36)
[2016-10-17] MEDS: PROSOURCE / PROSTAT (PYXIS) 30 ML UDC GT SCH (08:26)
[2016-10-17] MEDS: CALCITRIOL ORAL SOLUTION 1 MCG/ML GT SCH (08:27)
[2016-10-17] MEDS: VIT B CMPLX 3/FA/VIT C/BIOTIN 1 TAB TABLET GT SCH (08:28)
[2016-10-17] MEDS: ZINC SULFATE 220 MG CAPSULE GT SCH (08:28)
[2016-10-17] MEDS: ASCORBIC ACID SYRUP 500 MG/5 ML UDC GT SCH (08:29)
[2016-10-17] MEDS: ACETAMINOPHEN 650 MG/20.3 ML UDC GT SCH (08:29)
[2016-10-17] MEDS: LEVETIRACETAM SOL (5 ML) 100 MG/ML UDC GT SCH ×2 (08:29→21:36)
[2016-10-17] MEDS: DOCUSATE SODIUM LIQ 100 MG/10 ML UDC GT SCH ×2 (08:29→16:38)
[2016-10-17] MEDS: Z GUARD REMEDY 2 OZ OINT TP SCH (08:30)
[2016-10-17] MEDS: HYDROGEL DRESSING 90 GM TUBE TP SCH (08:31)
--- NOTE | 2016-10-17 08:41 | NUR ---
television journalist note elquis medication held per MD order pt awaiting paracentesis
[2016-10-17] MEDS: APIXABAN 2.5 MG TABLET GT SCH ×2 (09:00→17:00)
--- NOTE | 2016-10-17 11:14 | NUR ---
telegraphic typewriter installer note rn spoke with son Rolando Harvey in regards to obtaining consent form for paracentesis scheduled for 10/18/16. ROLANDO HARVEY STATES THAT HE CONSENTS TO THE PROCEDURE. CONSENT COMPLETED AND VERIFIED BY TWO NURSES. PLACED IN PATIENTS CHART
[2016-10-17 12:00] VITALS: BP 82/43
[2016-10-17] MEDS ORDERED: EPOETIN ALFA (10,000 UNIT) 10,000 UNIT/ML VIAL IV ONE (12:30)
[2016-10-17] MEDS: DIGOXIN INJ 0.5 MG/2 ML AMPUL IV SCH ×2 (12:35→18:11)
--- NOTE | 2016-10-17 12:37 | NUR ---
SUBWAY TRAIN OPERATOR NOTE REPORTED TO DR MELÉNDEZ ABOUT BP 82/43, NO NEW ORDER GIVEN WILL F\U
--- NOTE | 2016-10-17 14:56 | NUR ---
PARK MANAGER NOTE SPOKE WITH HD NURSE PATRIA STATED OK TO GIVE EPOGEN NOW
--- NOTE | 2016-10-17 15:30 | NUR ---
DISEASE INTERVENTION SPECIALIST NOTE STARTED HD ORDERED
[2016-10-17 16:00] VITALS: BP 86/41
[2016-10-17] MEDS ORDERED: ALBUMIN 25% 25 GM in PREMIX 1 EA IV ONE (16:30)
--- NOTE | 2016-10-17 17:45 | NUR ---
PROFESSOR OF SURGERY NOTE HD COMPLETED 1L OF FLUIDS REMOVED
--- NOTE | 2016-10-17 18:06 | NUR ---
RN CLOSING NOTES: ALL NEEDS WERE ATTENDED AND ANTICIPATED FOR. PT KEPT CLEAN, DRY, AND COMFORTABLE. BED KEPT IN LOCKED, LOWEST POSITION, AND SIDE RAILS X 2 UP. CARY OUTPUT WAS 200ML AND HAD 1 BM. PT HAS L HAND #20G AND IS SALINE LOCK. PT ALSO HAS IV ON R HAND #20G AND IS USED FOR TKO. BOTH IVS ARE PATENT AND INTACT. PT ALSO HAS R CHEST WALL FOR HD. PT HAD HD TODAY 10/17/16 NO ISSUES ARISE 1 LITER REMOVED PER HD NURSE . DAY SHIFT RN WILL ENDORSED TO PM NURSE FOR CONTINUITY OF CARE.
--- NOTE | 2016-10-17 19:30 | NUR ---
SHAFTING CLEANER INITIAL NOTES RECEIVED PATIENT AWAKE, A/OX3, VENT DEPENDENT, MOUTH WORDS GREENLANDIC SPEAKING, SON AT BEDSIDE. DENIES PAIN OR DISCOMFORT. RESPIRATION EVEN AND UNLABORED. WITH VENT SETTING AC 18, TV 500, FIO2 40%, PEEP 5. TRACH C/D/I. ON TELE MONITOR AFIB CONTROLLED. WITH GTF, TOLERATING WELL. GT PATENT AND INTACT. WITH F/C PATENT AND INTACT, DRAINING BY GRAVITY. HOB KEPT ELEVATED. SIDE RAILS UP AND LOCKED. BED KEPT AT LOWEST POSITION. CALL LIGHT KEPT WITHIN EASY REACH. WILL CONTINUE TO MONITOR.
[2016-10-17 20:00] VITALS: BP 105/39
[2016-10-18] VITALS: BP 96/37
--- NOTE | 2016-10-18 | NUR ---
NOTED PATIENT WITH TEMP 101.3, COOLING MEASURES RENDERED. WILL CONTINUE TO MONITOR.
[2016-10-18] MEDS: DIGOXIN INJ 0.5 MG/2 ML AMPUL IV SCH (00:10)
[2016-10-18] MEDS: BLOOD SUGAR DIAGNOSTIC 1 EACH STRIP IN SCH ×5 (00:11→23:52)
[2016-10-18] MEDS: METOCLOPRAMIDE HCL 10 MG/10 ML UDC GT SCH ×5 (00:12→23:53)
[2016-10-18] MEDS: ACETAMINOPHEN 650 MG/20.3 ML UDC GT PRN (00:19)
--- NOTE | 2016-10-18 01:00 | NUR ---
RECHECKED TEMP, 99.3. WILL CONTINUE TO MONITOR.
[2016-10-18] MEDS: ALBUTEROL FS 2.5 MG/0.5 ML VIAL.NEB NEB SCH ×4 (02:25→19:22)
[2016-10-18] MEDS: IPRATROPIUM NEB FS 0.5 MG/2.5 ML AMPUL.NEB IH SCH ×4 (02:25→19:22)
[2016-10-18 04:00] VITALS: BP 80/33
[2016-10-18] MEDS: SILDENAFIL CITRATE 20 MG TABLET GT SCH ×3 (05:00→21:00)
[2016-10-18] MEDS: PANTOPRAZOLE 40 MG/PACK PACK GT SCH (06:06)
[2016-10-18] MEDS: MIDODRINE HCL (5MG) 5 MG TABLET GT SCH ×3 (06:06→21:00)
--- NOTE | 2016-10-18 06:52 | NUR ---
BEE TENDER CLOSING NOTES NO SIGNIFICANT CHANGES OVERNIGHT. CURRENTLY AFEBRILE. SKIN WARM AND DRY TO TOUCH. NO RESPIRATORY DISTRESS NOTED. TOLERATED VENT SETTINGS. ON TELE MONITOR AFIB 68. TOLERATED GTF. SKIN WARM AND DRY TO TOUCH. KEPT CLEAN AND DRY. TURNED AND REPOSITIONED Q2 AND PRN. F/C PATENT AND INTACT. TURNED AND REPOSITIONED Q2 AND PRN. HOB KEPT ELEVATED. SIDE RAILS UP AND LOCKED. BED KEPT AT LOWEST POSITION. CALL LIGHT KEPT WITHIN EASY REACH. WILL ENDORSE CONTINUITY OF CARE TO AM NURSE.
--- NOTE | 2016-10-18 07:10 | NUR ---
RN INITIAL NOTES RECEIVED PT IN BED, ASLEEP, EASY TO AROUSE, ABLE TO MAKE NEEDS KNOWN, PT MOUTHS WORDS, PT IS ON MECH VENT PORTEX #7 AC 18 TV 500 FIO2 40% PEEP 5, SATING WELL, NO S/S OF RESP.DISTRESS OR SOB NOTED AT THIS TIME, PT IS ON TELE MONITOR SHOWING CONTROLLED A FIB @ 65 BPM, NO C/O FO CHEST PAIN OR DISCOMFORT NOTED AT THIS TIME, PT IS NOTED WITH BLEEDING G TUBE SITE AND LEAKING, PT IS NOTED WITH SKIN ISSUES, PT HAS F/C DRAINING WELL TO GRAVITY, INTACT/PATENT, PT HAS GTUBE INTACT/PATENT, RUNNING NOVASOURCE @45ML/HR, TOLERATE WELL, NO RESIDUALS NOTED AT THIS TIME, PT HAS R HAND #20G, RUNNING TKO, C/D/I/PATENT, FLUSHING WELL, NO S/S OF INFECTION/INFILTRATION NOTED AT THIS TIME, RCW HD CATH, DRESSING C/D/I, PT IS SCHEDULED FOR A PARACENTESIS, ELIQUIS WILL BE HELD, ALL SAFETY MEASURES IN PLACE AT ALL TIMES, NEEDS MET AT THIS TIME, CALL LIGHT WITHIN EASY REACH, WILL MONITOR PT CLOSELY FOR CHANGES
[2016-10-18 07:25] LABS: INR 1.2 (0.87-1.13)
[2016-10-18] MEDS: ACETYLCYSTEINE 10% SOLN 400 MG/4 ML VIAL NEB SCH ×2 (07:26→15:30)
[2016-10-18 08:00] VITALS: BP 82/42
--- NOTE | 2016-10-18 08:00 | NUR ---
RN NOTES ASSESS PT G TU BE SITE WITH WOUND RN, PT COUGHED AND GTUBE POPPED OUT, INSERTED CARY, COVERED WITH ABDOMINAL PAD AND TAPE, NOTIFIED , UNABLE TO GIVEN AM MEDICATION D/T NO GTUBE AT THIS TIME, NO NEW ORDERS AT THIS TIME.
[2016-10-18] MEDS ORDERED: IV SET PRIMARY PUMP SET 1 EA INFUS.SET MC ONE (08:05)
[2016-10-18] MEDS: MEROPENEM 500 MG in IV NS 0.9% 50 ML IV SCH ×2 (08:30→21:14)
--- NOTE | 2016-10-18 08:55 | NUR ---
WOUND CARE CONSULT: PT SEEN FOR G TUBE SITE AND LEFT ARM SCRATCHES. PT NOTED TO BE SCRATCHING HERSELF. PT COUGHED AND G TUBE CAME OUT. CARY CATH PLACED THEN COVERED WITH GAUZE, ABD PAD, SECURED WITH PAPER TAPE BY RN AND TESTING TECH. MSG LEFT FOR DR LYLES. RN CONTACTING PMD. PT HAS VERY LARGE ABDOMEN AND IS SCHEDULED TO PARACENTESIS TODAY PER RN. SACRAL WOUND FOLLOWED BY SURGICAL TEAM. WILL SEE PRDwight VANCE IN AGREEMENT WITH PLAN OF CARE. Addendum: 10/18/16 at 0859 by ALONSO GARZA WNDNU Amended: Links added.
[2016-10-18] MEDS: ASCORBIC ACID SYRUP 500 MG/5 ML UDC GT SCH (09:00)
[2016-10-18] MEDS: DOCUSATE SODIUM LIQ 100 MG/10 ML UDC GT SCH ×2 (09:00→17:00)
[2016-10-18] MEDS: ZINC SULFATE 220 MG CAPSULE GT SCH (09:00)
[2016-10-18] MEDS: CALCITRIOL ORAL SOLUTION 1 MCG/ML GT SCH (09:00)
[2016-10-18] MEDS: LEVETIRACETAM SOL (5 ML) 100 MG/ML UDC GT SCH ×2 (09:00→21:00)
[2016-10-18] MEDS: APIXABAN 2.5 MG TABLET GT SCH ×2 (09:00→17:00)
[2016-10-18] MEDS: ACETAMINOPHEN 650 MG/20.3 ML UDC GT SCH (09:00)
[2016-10-18] MEDS: PROSOURCE / PROSTAT (PYXIS) 30 ML UDC GT SCH (09:00)
[2016-10-18] MEDS: VIT B CMPLX 3/FA/VIT C/BIOTIN 1 TAB TABLET GT SCH (09:00)
[2016-10-18] MEDS: HYDROGEL DRESSING 90 GM TUBE TP SCH (09:33)
[2016-10-18] MEDS: Z GUARD REMEDY 2 OZ OINT TP SCH (09:33)
--- NOTE | 2016-10-18 10:00 | NUR ---
RN NOTES PAGED DR. MELÉNDEZ REGARDING PARACENTESIS, NOTIFIED RIKA THAT PT BP DROPS AFTER PROCEDURE, WANTS PROCEDURE DONE, WANTS WANTS TO SEE PT. PAGED
--- NOTE | 2016-10-18 10:00 | NUR ---
RN INITIAL NOTE TRANSFER OF CARE FROM [facility], PT RECEIVED IN BED. NON VERBAL. ON TRACH PORTEX #7, AC-18, TV-500, FI02-40% PEEP-5. SATING WELL. NO S/S OF RESPIRATORY DISTRESS OR SOB. AFIB ON TELE MONITOR.. CARY CATHETER DRAINING TO GRAVITY. GTUBE DISLODGED, HAS BEEN NOTIFIED. RIGHT HAND IV LINE FLUSHED AND PATENT. PT SCHEDULED FOR ULTRASOUND GUIDED PARACENTESIS THIS MORNING DRESSING C/D/I. SAFETY PRECAUTIONS IMPLEMENTED. BED IN LOCKED, LOW POSITION WITH TWO SIDE RAILS UP. CALL LIGHT WITHIN EASY REACH. WILL MONITOR CLOSELY
--- NOTE | 2016-10-18 10:04 | NUR ---
RN NOTES RN REPORTED PT GTUBE WAS OUT, TEMPORARY FC PLACED PER PROTOCOL, COVERED WITH DRESSING DRY CLEAN AND INTACT
--- NOTE | 2016-10-18 10:05 | NUR ---
RN NOTES CALLED [facility] LEFT A VOICE MESSAGE
--- NOTE | 2016-10-18 10:20 | NUR ---
RN NOTES REPORT GIVEN TO ARCELIA RYAN
--- NOTE | 2016-10-18 10:55 | NUR ---
RN NOTES RETURN CALL, WILL COME BY LATER
[2016-10-18 12:00] VITALS: BP 105/52
--- NOTE | 2016-10-18 12:44 | NUR ---
RN NOTES GI DR PRITCHETT AT BEDSIDE, PT GT SITE WAS SEEN AND EVALUATED. PER MD PT NEEDS SURGICAL REPAIR. DR MELÉNDEZ AWARE.
[2016-10-18 16:00] VITALS: BP 109/55
--- NOTE | 2016-10-18 19:22 | NUR ---
PT RCVD ON MECH VENT WITH NOTED SETTINGS. SUCTIONED SMALL AMOUNT OF WHITE THIN SECRETIONS, BILATERAL BS NOTED. VENT PLUGGED INTO RED OUTLET, VENT ALARMED AND WORKING. AMBU BAG AT BEDSIDE. NO RESPIRATORY DISTRESS AT THIS TIME. WILL CONTINUE TO MONITOR.
--- NOTE | 2016-10-18 19:22 | NUR ---
RN CLOSING NOTE ALL MD ORDERS CARRIED OUT, PT KEPT CLEAN AND DRY. SAFETY PRECAUTIONS IN PLACE AT ALL TIMES. REPORT GIVEN TO PM RN FOR CONNOR.
[2016-10-18 20:00] VITALS: BP 91/58
--- NOTE | 2016-10-18 20:00 | NUR ---
RN NOTES RECEIVED PX AWAKE, ALERT, FOLLOWS COMMAND, COMMUNICATES BY MOUTHING WORDS; WITH TRACH TO VENT; WITH PIV FLUSHED PATENT INTACT; CARY CATH TAPED TO THIGH TO BAG BY GRAVITY; DIAPER ON; CHANGED DRESSING ON LEFT UPPER ABDOMEN WHERE G TUBE PREVIOUSLY WAS NOW REPLACED WITH CARY CATH, NOTED YELLOWISH AND BROWNISH DISCHARGE WITH ERYTHEMATOUS SURROUNDING SKIN, COVERED WITH ABD PAD; SUCTIONED ORALLY AND TRACHEALLY; BILAT DVT PUMPS WITH HEELS OFFLOADED; REPOSITIONED, Megan NEWMAN ON MONITOR, CONTROLLED RATE. Addendum: 10/19/16 at 0409 by MONAE BRADEN RN UNABLE TO GIVE MEDS VERENICE GT PER ORDER; PENDING SWALLOW EVAL IN THE MORNING.
[2016-10-19] VITALS: BP_SYST 86; BP_SYST 90; BP_DIAS 22; BP_DIAS 35
--- NOTE | 2016-10-19 | NUR ---
RN NOTES TEMP NOW AT 99; SUCTIONED ORALLY AND TRACHEALLY; REPOSITIONED. DENIED PAIN, N/V.
[2016-10-19] MEDS: ACETYLCYSTEINE 10% SOLN 400 MG/4 ML VIAL NEB SCH ×4 (00:29→23:32)
[2016-10-19] MEDS: ALBUTEROL FS 2.5 MG/0.5 ML VIAL.NEB NEB SCH ×4 (00:30→19:35)
[2016-10-19] MEDS: IPRATROPIUM NEB FS 0.5 MG/2.5 ML AMPUL.NEB IH SCH ×4 (00:30→19:35)
[2016-10-19 04:00] VITALS: BP 96/46
[2016-10-19] MEDS: MIDODRINE HCL (5MG) 5 MG TABLET GT SCH ×3 (04:09→21:00)
[2016-10-19] MEDS: SILDENAFIL CITRATE 20 MG TABLET GT SCH ×3 (04:10→21:00)
[2016-10-19] MEDS: METOCLOPRAMIDE HCL 10 MG/10 ML UDC GT SCH ×4 (06:00→23:58)
[2016-10-19] MEDS: BLOOD SUGAR DIAGNOSTIC 1 EACH STRIP IN SCH ×3 (06:03→17:20)
[2016-10-19] MEDS: PANTOPRAZOLE 40 MG/PACK PACK GT SCH (06:04)
--- NOTE | 2016-10-19 06:24 | NUR ---
RN NOTES NO ACUTE EVENTS OVERNIGHT; HAD 2 BM, LOOSE BRIGHT SMALL TO MOD, CLEANED PX AND CHANGED GOWN AND BEDLINENS, PERICARE RENDERED; ORAL, TRACH, CARY CARE GIVEN; PROCEDURE TOLERATED; CHANGED DRESSING ON PREVIOUS G TUBE SITE, STILL WITH YELLOWISH DISCHARGE, NOW WITH CLEAN AND DRY DRESSING, PROCEDURES TOLERATED; CHANGED DRESSING ON SACRAL AREA WOUND PER MD ORDER/PROTOCOL; NO NEW SKIN BREAKDOWN; SUCTIONED ORALLY AND TRACHEALLY; REPOSITIONED; WILL ENDORSE TO NEXT RN.
[2016-10-19 08:00] VITALS: BP 97/49
[2016-10-19] MEDS: CALCITRIOL ORAL SOLUTION 1 MCG/ML GT SCH (08:04)
[2016-10-19] MEDS: ASCORBIC ACID SYRUP 500 MG/5 ML UDC GT SCH (08:04)
[2016-10-19] MEDS: APIXABAN 2.5 MG TABLET GT SCH ×2 (08:04→16:16)
[2016-10-19] MEDS: DOCUSATE SODIUM LIQ 100 MG/10 ML UDC GT SCH ×2 (08:04→16:16)
[2016-10-19] MEDS: PROSOURCE / PROSTAT (PYXIS) 30 ML UDC GT SCH (08:04)
[2016-10-19] MEDS: LEVETIRACETAM SOL (5 ML) 100 MG/ML UDC GT SCH ×2 (08:04→21:00)
[2016-10-19] MEDS: VIT B CMPLX 3/FA/VIT C/BIOTIN 1 TAB TABLET GT SCH (08:04)
[2016-10-19] MEDS: ZINC SULFATE 220 MG CAPSULE GT SCH (08:05)
[2016-10-19] MEDS: ACETAMINOPHEN 650 MG/20.3 ML UDC GT SCH (08:05)
[2016-10-19] MEDS: HYDROGEL DRESSING 90 GM TUBE TP SCH (09:01)
[2016-10-19] MEDS: Z GUARD REMEDY 2 OZ OINT TP SCH (09:01)
[2016-10-19] MEDS: MEROPENEM 500 MG in IV NS 0.9% 50 ML IV SCH ×2 (09:01→21:24)
--- NOTE | 2016-10-19 10:00 | NUR ---
RN NOTES SPOKE WITH DUDLEY CARDONA, PER MD CALL HIM FOR SWALLOW EVAL RESULT, KEEP PT NPO, NO IVF
--- NOTE | 2016-10-19 11:16 | NUR ---
RN NOTES SPOKE WITH SPEECH THERAPIST PEARL ORELLANA UNABLE TO DO SWALLOW TEST TODAY, PT NOT BREATHING GOOD, WILL TRY AGAIN MATHEW.
[2016-10-19 12:00] VITALS: BP 99/58
--- NOTE | 2016-10-19 14:50 | NUR ---
RN NOTES FAMILY AT BEDSIDE, UPDATES REGARDING CARE GIVEN. SWALLOW EVAL NOT DONE TODAY, SPOKE WITH SON, PER SON HE DOUBT THAT HIS MOM WILL PASS THE SWALLOW EVAL, SHE LOOKS WEAK. HIM AND HIS SIBLINGS JUST WANTED TO PROCEED WITH PEG PLACEMENT INSTEAD. CALLED DR DEE, SPOKE WITH MD OVER THE PHONE, MADE AWARE OF CURRENT SITUATION, PER MD TO OBTAIN CONSENT FOR PEG PLACEMENT.
[2016-10-19 16:00] VITALS: BP 99/48
[2016-10-19] MEDS: ALBUMIN 25% 25 GM in PREMIX 1 EA IV PRN (17:04)
--- NOTE | 2016-10-19 18:24 | NUR ---
RT END OF THE SHIFT REPORT: PT. 80 Y OLD FEMALE TRACH'D PORTEX # 8 REMAIN ON VENT WITH NOTED SETTINGS, ALARMS ARE SET AND FUNCTIONAL T/O SHIFT NO DISTRESS NOTED. TX'S GIVEN INLINE Q6/Q8 AND INES. WELL NO ADVERSE REACTION NOTED, 1330,1530 TX'S SKIP PER FAMILY REQUEST EQUAL CHEST RISE NOTED, DIE OUT WORKER DONE , HME CHANGED, VENT PLUGGED INTO RED OUTLET. B/S RHONCHI/RALES BILATERALLY, SUX'D FOR MINIMAL WHITE SECRETIONS, NO CHANGES T/O SHIFT. PT. REMAIN STABLE AND AMBU BAG REMAIN AT THE BEDSIDE. CONTINUE FOR MONITORING, REPORT WILL BE PASS TO PM SHIFT. Addendum: 10/19/16 at 1826 by ZANDRA PANTOJA RT Amended: Links added.
--- NOTE | 2016-10-19 18:30 | NUR ---
RN NOTES PT RESTING IN BED, MECH VENT SETTINGS PRESCRIBED, INES WELL. AFEBRILE. NO ACUTE CHANGE IN CONDITION NOTED. PT STILL NPO, HEMODIALYSIS ONGOING. KEPT COMFORTABLE. REPOSITIONED FOR COMFORT
[2016-10-19 20:00] VITALS: BP_SYST 103; BP_DIAS 23; BP_DIAS 53
[2016-10-19] MEDS ORDERED: HYDROMORPHONE 1 MG/1 ML DISP.SYRIN IV PRN (20:30)
[2016-10-19] MEDS ORDERED: IV NS 0.9% 250 ML IV ONE (21:05)
[2016-10-19] MEDS ORDERED: SECONDARY IV SET 1 EA INFUS.SET MC ONE (21:06)
[2016-10-19] MEDS ORDERED: IV SET PRIMARY PUMP SET 1 EA INFUS.SET MC ONE (21:06)
--- NOTE | 2016-10-19 21:30 | NUR ---
RN NOTE RECEIVED ORDERS TO START PT ON LOVENOX 40MG Q24H PER JERAMIE TIWARI NP. READBACK ORDERS CARRIED OUT. ORDERS PLACED IN PT EMAR AND WILL ENDORSE TO FRANKLIN VIERA.
[2016-10-20] VITALS: BP 86/22
[2016-10-20] MEDS: IPRATROPIUM NEB FS 0.5 MG/2.5 ML AMPUL.NEB IH SCH ×4 (01:30→20:00)
[2016-10-20] MEDS: ALBUTEROL FS 2.5 MG/0.5 ML VIAL.NEB NEB SCH ×4 (01:30→20:00)
[2016-10-20 04:00] VITALS: BP 93/16
[2016-10-20] MEDS: MIDODRINE HCL (5MG) 5 MG TABLET GT SCH ×3 (05:00→21:00)
[2016-10-20] MEDS: SILDENAFIL CITRATE 20 MG TABLET GT SCH ×3 (05:00→21:00)
[2016-10-20] MEDS: PANTOPRAZOLE 40 MG/PACK PACK GT SCH (05:46)
[2016-10-20] MEDS: METOCLOPRAMIDE HCL 10 MG/10 ML UDC GT SCH ×3 (05:46→17:35)
[2016-10-20] MEDS: BLOOD SUGAR DIAGNOSTIC 1 EACH STRIP IN SCH ×4 (05:51→17:41)
--- NOTE | 2016-10-20 06:45 | NUR ---
RN NOTE RECEIVED ORDERS FROM JERAMIE TIWARI IT LEAD TO GIVE DEXTROSE 25ML BECAUSE GLUCOSE IS 62 AND PT IS NPO DUE TO GTUBE CAME OUT OF PT STOMACH. WILL ENDORSE TO FRANKLIN VIERA.
[2016-10-20] MEDS ORDERED: DEXTROSE 50%-WATER 50 ML DISP.SYRIN IVP ONE (07:00)
--- NOTE | 2016-10-20 07:07 | NUR ---
RN NOTE PT REMAINS IN NO ACUTE DISTRESS IN BED. PT DID NOT HAVE ANY SIGNIFICANT CHANGE IN CONDITION DURING SHIFT. ALL NEEDS MET ALL ORDERS CARRIED OUT. PT TOLERATED VENT SETTING WELL WITH O2 SAT @ 100%. WILL ENDORSE TO AM RN FOR CONTINUITY OF CARE.
[2016-10-20] MEDS: ACETYLCYSTEINE 10% SOLN 400 MG/4 ML VIAL NEB SCH ×3 (07:46→23:28)
[2016-10-20 08:00] VITALS: BP 93/46
[2016-10-20] MEDS: ZINC SULFATE 220 MG CAPSULE GT SCH (09:00)
[2016-10-20] MEDS: ASCORBIC ACID SYRUP 500 MG/5 ML UDC GT SCH (09:00)
[2016-10-20] MEDS: CALCITRIOL ORAL SOLUTION 1 MCG/ML GT SCH (09:00)
[2016-10-20] MEDS: VIT B CMPLX 3/FA/VIT C/BIOTIN 1 TAB TABLET GT SCH (09:00)
[2016-10-20] MEDS ORDERED: ENOXAPARIN SODIUM 30 MG/0.3 ML DISP.SYRIN SQ SCH (09:00)
[2016-10-20] MEDS: DOCUSATE SODIUM LIQ 100 MG/10 ML UDC GT SCH ×2 (09:00→17:00)
[2016-10-20] MEDS: ACETAMINOPHEN 650 MG/20.3 ML UDC GT SCH (09:00)
[2016-10-20] MEDS: PROSOURCE / PROSTAT (PYXIS) 30 ML UDC GT SCH (09:00)
[2016-10-20] MEDS: LEVETIRACETAM SOL (5 ML) 100 MG/ML UDC GT SCH (09:00)
[2016-10-20] MEDS: MEROPENEM 500 MG in IV NS 0.9% 50 ML IV SCH (10:03)
[2016-10-20] MEDS: HYDROGEL DRESSING 90 GM TUBE TP SCH (10:04)
[2016-10-20] MEDS: Z GUARD REMEDY 2 OZ OINT TP SCH (10:08)
--- NOTE | 2016-10-20 10:57 | NUR ---
RN NOTE PT FAILED SWALLOW EVALUATION, DUE TO NOT TOLERATING DEFLATED CUFF IN TRACH. NOTIFIED DR DEE ABOUT IT AND HE SAID HE WILL DO PEG TUBE PLACEMENT TOMORROW.
[2016-10-20 12:00] VITALS: BP 97/46
[2016-10-20] MEDS: IV D5/ 0.9% NACL 1,000 ML IV PRN (12:00)
[2016-10-20] MEDS ORDERED: SECONDARY IV SET 1 EA INFUS.SET MC ONE (12:51)
[2016-10-20] MEDS: LEVETIRACETAM (500MG) 500 MG in IV NS 0.9% 100 ML IV SCH (12:59)
[2016-10-20 16:00] VITALS: BP 91/48
[2016-10-20 20:00] VITALS: BP 90/42
--- NOTE | 2016-10-20 20:00 | NUR ---
MS RN NOTES PT IS AWAKE, ALERT, MOUTH WORDS. ON VENT SETTINGS ORDERED. NO ACUTE RESP. DISTRESS NOTED. RIGHT HAND IV ACCESS NOTED, INTACT AND PATENT WITH IVF INFUSING WELL AT 50 CC/ HR. WITH CARY CATHETER, SMALL AMOUNT OF OUTPUT NOTED. SON ON THE BEDSIDE. CLEAN AND DRY. ALL NEEDS ANTICIPATED. WILL CONTINUE TO MONITOR
--- NOTE | 2016-10-20 21:00 | NUR ---
BEET FLUMER NOTES DR. BAEZA CAME AND SEEN PT. SPOKE WITH THE SON REGARDING POSSIBLE SURGERY IN AM. DR. BAEZA WANT WOUND/ OSTOMY NURSE CONSULT FOR THE GTUBE SITE. PT REMAINS NPO AT THIS TIME. PT. DENIES ANY PAIN WHEN ASKED. WILL CONTINUE TO MONITOR.
[2016-10-21] VITALS (9 sets, daily range): BP systolic 83–95; BP diastolic 30–41
--- NOTE | 2016-10-21 | NUR ---
LEAD MASON TENDER NOTES NO SIGNIFICANT CHANGES NOTED. WILL CONTINUE TO MONITOR.
[2016-10-21] MEDS: INSULIN REGULAR, HUMAN 100 UNIT/ML 3 ML VIAL SQ PRN ×2 (00:43→06:22)
[2016-10-21] MEDS: BLOOD SUGAR DIAGNOSTIC 1 EACH STRIP IN SCH ×4 (00:43→17:37)
[2016-10-21] MEDS: LEVETIRACETAM (500MG) 500 MG in IV NS 0.9% 100 ML IV SCH ×2 (01:06→13:13)
[2016-10-21] MEDS: ALBUTEROL FS 2.5 MG/0.5 ML VIAL.NEB NEB SCH ×4 (01:48→19:59)
[2016-10-21] MEDS: IPRATROPIUM NEB FS 0.5 MG/2.5 ML AMPUL.NEB IH SCH ×4 (01:48→19:59)
[2016-10-21] MEDS: MIDODRINE HCL (5MG) 5 MG TABLET GT SCH ×3 (04:13→20:54)
[2016-10-21] MEDS: SILDENAFIL CITRATE 20 MG TABLET GT SCH ×3 (05:00→20:55)
[2016-10-21] MEDS: METOCLOPRAMIDE HCL 10 MG/10 ML UDC GT SCH ×4 (05:13→17:37)
--- NOTE | 2016-10-21 05:13 | NUR ---
RN NOTES UNABLE TO GIVE MEDICATION DUE TO NPO FOR SURGERY AND GTUBE NEEDS TO BE REPLACED. MD AWARE.
[2016-10-21] MEDS: PANTOPRAZOLE 40 MG/PACK PACK GT SCH (06:22)
--- NOTE | 2016-10-21 06:50 | NUR ---
GIVING OFFICER NOTES PT REMAINS STABLE THROUGHOUT THE NIGHT. WILL ENDORSE PT TO THE NEXT SHIFT.
[2016-10-21] MEDS: ACETYLCYSTEINE 10% SOLN 400 MG/4 ML VIAL NEB SCH ×3 (08:09→22:50)
--- NOTE | 2016-10-21 10:30 | NUR ---
RN NOTE PT HAD G AND J TUBE INSERTED AT THE BED SIDE, TOLERATED WELL, VS STABLE, SAFETY MEASURES OBSERVED WILL CONTINUE TO MONITOR.
--- NOTE | 2016-10-21 11:46 | NUR ---
WOUND CARE CONSULT REQUESTED FOR CONSULT TO EVALUATE AND MAKE TMT RECOMMENDATIONS TO G-TUBE PERISTOMA ERYTHEMA. A NEWGJ TUBE WAS INSERTED BY GI MD TODAY. THE SITE HAS MILD REDNESS AND MILD EXCORIATIONS FROM PREVIOUS LEAKAGE. RECOMMEND CLEANSE THE JAMIE STOMA SITE WITH HYDROGEN PEROXIDE, DRY WELL, APPLY BACITRACIN OINTMENT TO THE EXCORIATED AREAS, COVER WITH GAUZE DRESSINGS BID X 10 DAYS. MONITOR THE SITE FOR ANY FURTHER LEAKING FROM AROUND THE NEWLY INSERTED GJ TUBE. ALL DISCUSSED WITH FAMILY MANAGER AND BOOM TRUCK DRIVER. RECOMMEND TO COVER THE JG TUBE SITE OVER THE BUTTON FROM THE TOP, DO NOT PLACE GAUZE DRESSINGS UNDER THE GJ TUBE BUTTON.
[2016-10-21] MEDS ORDERED: HYDROGEN PEROXIDE 480 ML BOTTLE TP PRN (16:00)
[2016-10-21] MEDS: IV D5/ 0.9% NACL 1,000 ML IV PRN (16:12)
[2016-10-21] MEDS: ASCORBIC ACID SYRUP 500 MG/5 ML UDC GT SCH (16:13)
[2016-10-21] MEDS: VIT B CMPLX 3/FA/VIT C/BIOTIN 1 TAB TABLET GT SCH (16:13)
[2016-10-21] MEDS: BACITRACIN/POLYMYXIN B 15 GM TUBE TP SCH (16:16)
[2016-10-21] MEDS: ACETAMINOPHEN 650 MG/20.3 ML UDC GT SCH (16:16)
[2016-10-21] MEDS: ZINC SULFATE 220 MG CAPSULE GT SCH (16:16)
[2016-10-21] MEDS: PROSOURCE / PROSTAT (PYXIS) 30 ML UDC GT SCH (16:16)
[2016-10-21] MEDS: DOCUSATE SODIUM LIQ 100 MG/10 ML UDC GT SCH ×2 (16:16→16:20)
[2016-10-21] MEDS: HYDROGEL DRESSING 90 GM TUBE TP SCH (16:17)
[2016-10-21] MEDS: Z GUARD REMEDY 2 OZ OINT TP SCH (16:17)
[2016-10-21] MEDS: CALCITRIOL ORAL SOLUTION 1 MCG/ML GT SCH (16:17)
[2016-10-21] MEDS: RENAL NOVASOURCE 1,000 ML BOTTLE GT PRN (16:18)
[2016-10-21] MEDS ORDERED: BACITRACIN/POLYMYXIN B 15 GM TUBE TP SCH (17:00)
--- NOTE | 2016-10-21 17:00 | NUR ---
RN NOTES SACRAL WOUND DEBRIDEMENT DONE AT BED SIDE BY DR GOSS, TOLERATED WELL, NO BLEEDING NOTED, WILL CONTINUE TO MONITOR.
--- NOTE | 2016-10-21 19:45 | NUR ---
RN OPENING NOTE RECEIVED PT IN NO ACUTE DISTRESS. PT HAS HEAVY GREEN BILE SECRETIONS COMING FROM GTUBE SITE. CLEANED SITE AND REPLACED GAUZE AND TAPED IN PLACE. WILL CONTINUE TO MONITOR SITE. WILL PLACE GTUBE ON GRAVITY. PT TOLERATING FEEDING WELL WITH 0 RESIDUAL THROUGH JTUBE. WILL CONTINUE TO MONITOR SITE AND RESIDUAL. BED IN LOW LOCK POSITION WITH RIALS UP X 2. CALL LIGHT WITHIN REACH AND ALL SAFETY MEASURES ENSURED AND CARRIED OUT.
--- NOTE | 2016-10-21 22:00 | NUR ---
RN NOTE PLACED GTUBE ON GRAVITY WITH GREEN BILE DRAINING INTO BAG.
[2016-10-22] VITALS: BP 89/29
[2016-10-22] MEDS ORDERED: SECONDARY IV SET 1 EA INFUS.SET MC ONE (00:19)
[2016-10-22] MEDS: METOCLOPRAMIDE HCL 10 MG/10 ML UDC GT SCH ×4 (00:20→17:06)
[2016-10-22] MEDS: ACETAMINOPHEN 650 MG/20.3 ML UDC GT PRN ×2 (00:20→15:21)
[2016-10-22] MEDS: LEVETIRACETAM (500MG) 500 MG in IV NS 0.9% 100 ML IV SCH (00:21)
[2016-10-22] MEDS: BLOOD SUGAR DIAGNOSTIC 1 EACH STRIP IN SCH ×4 (00:30→17:07)
[2016-10-22] MEDS: IPRATROPIUM NEB FS 0.5 MG/2.5 ML AMPUL.NEB IH SCH ×4 (00:51→20:17)
[2016-10-22] MEDS: ALBUTEROL FS 2.5 MG/0.5 ML VIAL.NEB NEB SCH ×4 (00:51→20:16)
[2016-10-22 04:00] VITALS: BP 88/41
[2016-10-22] MEDS: SILDENAFIL CITRATE 20 MG TABLET GT SCH ×3 (05:00→21:44)
[2016-10-22] MEDS: MIDODRINE HCL (5MG) 5 MG TABLET GT SCH ×3 (05:28→21:44)
[2016-10-22] MEDS: PANTOPRAZOLE 40 MG/PACK PACK GT SCH (05:30)
--- NOTE | 2016-10-22 06:36 | NUR ---
RN CLOSING NOTE PT REMAINS IN NO ACUTE DISTRESS IN BED. PT DID NOT HAVE ANY SIGNIFICANT CHANGE IN CONDITION DURING SHIFT. WILL ENDORSE TO AM RN FOR CONTINUITY OF CARE.
--- NOTE | 2016-10-22 06:38 | NUR ---
RN NOTE RECEIVED PT IN NO ACUTE DISTRESS. PT HAS HEAVY GREEN BILE SECRETIONS COMING FROM GTUBE SITE. CLEANED SITE AND REPLACED GAUZE AND TAPED IN PLACE. WILL CONTINUE TO MONITOR SITE. WILL PLACE GTUBE ON GRAVITY. PT TOLERATING FEEDING WELL WITH 0 RESIDUAL THROUGH JTUBE. WILL CONTINUE TO MONITOR SITE AND RESIDUAL. BED IN LOW LOCK POSITION WITH RIALS UP X 2. CALL LIGHT WITHIN REACH AND ALL SAFETY MEASURES ENSURED AND CARRIED OUT. Addendum: 10/22/16 at 0642 by AUBREY FORD RN PLACED ON WRONG TIME. SEE NOTE FOR 10/21/2016.
--- NOTE | 2016-10-22 07:19 | NUR ---
RN NOTE RECEIVED PT ON BED ,ALERT , MOUTHS WORDS IN ANDORRAN , VENT DEPENDENT , TEACH CARE DONE, J TUBE FEEDING NOVASOURCE AT 45 RUNNING WELL, NO RESIDUAL NOTED, G TUBE IS DRAINING TO GRAVITY WITH GREEN BILE SECRETIONS , DRESSING CDI, WILL CONTINUE TO MONITOR SITE. CARY DARNING TO GRAVITY WITH YELLOW URINE , R WIST G 20 AND R HAND IV SITED CDI, BED LOCKED AND IN LOWEST POSITION , RIALS UP X 3. CALL LIGHT WITHIN REACH REACH , CONTINUE TO MONITOR PT CLOSELY AND NOTIFY MD FOR ANY SIGNIFICANT CHANGES.
[2016-10-22 08:00] VITALS: BP_SYST 89; BP_SYST 92; BP_DIAS 51; BP_DIAS 54
[2016-10-22] MEDS: ACETYLCYSTEINE 10% SOLN 400 MG/4 ML VIAL NEB SCH ×2 (08:04→13:33)
[2016-10-22 08:06] LABS: BASOPHILS % (AUTO) 0.4 % (0.0-2.0); EOSINOPHILS # (AUTO) 0.5 /CMM (0.0-0.7); EOSINOPHILS % (AUTO) 5.5 % (0.0-6.0); HEMATOCRIT 24 % (33-45); LYMPHOCYTES # (AUTO) 1.1 /CMM (0.8-4.8); LYMPHOCYTES % (AUTO) 11.5 % (20.0-44.0); MEAN CORPUSCULAR HEMOGLOBIN 32 PG (26.0-33.0); MEAN CORPUSCULAR HGB CONC 33 g/dl (31.0-36.0); MEAN CORPUSCULAR VOLUME 96 fL (82-100); MONOCYTES # (AUTO) 0.7 /CMM (0.1-1.30); MONOCYTES % (AUTO) 7.8 % (2.0-12.0); NEUTROPHILS # (AUTO) 7.1 /CMM (1.8-8.9); NEUTROPHILS % (AUTO) 74.8 % (43.0-81.0); PLATELET COUNT (AUTO) 299 /CMM (150-450); RDW COEFFICIENT OF VARIATION 15.7 (11.5-15.0); RED BLOOD CELL COUNT(AUTO) 2.54 MIL/uL (4.0-5.2); WHITE BLOOD COUNT (AUTO) 9.6 K/uL (4.3-11.0)
[2016-10-22] MEDS: DOCUSATE SODIUM LIQ 100 MG/10 ML UDC GT SCH ×2 (08:09→16:19)
[2016-10-22] MEDS: ZINC SULFATE 220 MG CAPSULE GT SCH (08:09)
[2016-10-22] MEDS: PROSOURCE / PROSTAT (PYXIS) 30 ML UDC GT SCH (08:09)
[2016-10-22] MEDS: ASCORBIC ACID SYRUP 500 MG/5 ML UDC GT SCH (08:09)
[2016-10-22] MEDS: ACETAMINOPHEN 650 MG/20.3 ML UDC GT SCH (08:09)
[2016-10-22] MEDS: VIT B CMPLX 3/FA/VIT C/BIOTIN 1 TAB TABLET GT SCH (08:09)
[2016-10-22] MEDS: BACITRACIN/POLYMYXIN B 15 GM TUBE TP SCH ×2 (08:12→17:07)
[2016-10-22] MEDS: CALCITRIOL ORAL SOLUTION 1 MCG/ML GT SCH (08:12)
[2016-10-22] MEDS: HYDROGEL DRESSING 90 GM TUBE TP SCH (08:13)
[2016-10-22] MEDS: Z GUARD REMEDY 2 OZ OINT TP SCH (08:13)
[2016-10-22 08:20] LABS: CALCIUM, SERUM 8.6 mg/dL (8.5-10.1); MAGNESIUM 1.9 mg/dL (1.8-2.4); PHOSPHORUS 3.6 mg/dL (2.5-4.9); POTASSIUM 3.1 mmol/L (3.5-5.1)
[2016-10-22] MEDS: LEVETIRACETAM SOL (5 ML) 100 MG/ML UDC GT SCH ×2 (10:46→21:42)
[2016-10-22 12:00] VITALS: BP_SYST 111; BP_SYST 90; BP_DIAS 45; BP_DIAS 69
--- NOTE | 2016-10-22 12:00 | NUR ---
RN NOTES PT STABLE , TOLERATING CURRENT VENT SETTING WELL, CONTINUE TO MONITOR ,
[2016-10-22 16:00] VITALS: BP_SYST 84; BP_SYST 91; BP_DIAS 31; BP_DIAS 46
--- NOTE | 2016-10-22 16:00 | NUR ---
RN NOTES DR FLORES NOTIFED REGARDING K=3.1, NO NEW ORDER GIVEN
--- NOTE | 2016-10-22 18:00 | NUR ---
RN NOTES PT REMAINS THE SAME , MEDICATED PER MD ORDER, GT DARNING TO GRAVITY WITH 600CC AMOUNT OF THICK YELLOWISH DRAINING ON THIS SHIFT , DR MELÉNDEZ NOTIFIED , SR UP x3, CALL LIGHT WITHIN EASY REACH , NO SIGNIFICANT CHANGES NOTED ON THIS SHIFT
--- NOTE | 2016-10-22 19:15 | NUR ---
RN INITIAL NOTES RECEIVED PATIENT IN BED, SLEEPING COMFORTABLY, AROUSABLE WITH VERBAL AND TACTILE STIMULI, DENIES PAIN AND DISCOMFORT. ON MECH VENT, NO DISTRESS, AIRWAY CLEAR. CONTROLLED AFIB WITH BBB, HR OF 70 ON TELE. R CHESTWALL HD CATH WITH INTACT DRESSING. R WRIST G20, R HAND G20, L HAND G20, ALL PIV ACCESS INTACT AND PATENT. IVF OF D5NS AT 50CC/HR INFUSING WELL ORDERED. F/C INTACT AND DRAINING VIA GRAVITY. JTUBE TO FEEDING, INFUSING WELL, NO GASTRIC RESIDUAL NOTED, FLUSHED AND KEPT PATENT. GTUBE DRAINING TO CARY BAG WITH MILK CONSISTENCY DRAINAGE. PATIENT'S NEEDS ANTICIPATED AND MET. SAFETY AND COMFORT ENSURED. BED IN LOW AND LOCKED POSITION. CALL LIGHT IN REACH. WILL MONITOR.
[2016-10-22 20:00] VITALS: BP 93/46
[2016-10-23] VITALS (7 sets, daily range): BP systolic 92–117; BP diastolic 42–91
[2016-10-23] MEDS: ACETYLCYSTEINE 10% SOLN 400 MG/4 ML VIAL NEB SCH ×3 (00:28→13:46)
[2016-10-23] MEDS: METOCLOPRAMIDE HCL 10 MG/10 ML UDC GT SCH ×5 (00:29→23:33)
[2016-10-23] MEDS: BLOOD SUGAR DIAGNOSTIC 1 EACH STRIP IN SCH ×5 (00:29→23:40)
[2016-10-23] MEDS: ALBUTEROL FS 2.5 MG/0.5 ML VIAL.NEB NEB SCH ×4 (00:30→19:53)
[2016-10-23] MEDS: IPRATROPIUM NEB FS 0.5 MG/2.5 ML AMPUL.NEB IH SCH ×4 (00:30→19:53)
--- NOTE | 2016-10-23 03:46 | NUR ---
RN NOTES AM CARE PROVIDED, BED BATH GIVEN. TRACH CARE DONE, AIRWAY KEPT CLEAR, SUCTIONED NEEDED. WOUND TREATMENT RENDERED ORDERED. PATIENT TURNED AND REPOSITIONED. SAFETY AND COMFORT ENSURED. BED IN LOW AND LOCKED POSITION. J/G TUBE INTACT AND PATENT. J TUBE FLUSHED AND KEPT PATENT, FEEDING CONTINUOUS. GTUBE CONNECTED TO CARY BAG, DRAINING VIA GRAVITY WITH YELLOWISH, THICK DRAINAGE - CONSISTENT OF MILK/FEEDING CONSISTENCY. NOTED TO BE SLIGHT GREENISH IN COLOR D/T GASTRIC JUICES. F/C INTACT, DRAINING VIA GRAVITY WITH CLOUDY, FLETCHER URINE. ON CLOSE MONITORING.
[2016-10-23] MEDS: IV D5/ 0.9% NACL 1,000 ML IV PRN (05:36)
[2016-10-23] MEDS: RENAL NOVASOURCE 1,000 ML BOTTLE GT PRN (05:36)
[2016-10-23] MEDS: SILDENAFIL CITRATE 20 MG TABLET GT SCH ×3 (05:37→20:20)
[2016-10-23] MEDS: MIDODRINE HCL (5MG) 5 MG TABLET GT SCH ×3 (05:37→21:12)
[2016-10-23] MEDS: PANTOPRAZOLE 40 MG/PACK PACK GT SCH (05:37)
--- NOTE | 2016-10-23 06:46 | NUR ---
RN CLOSING NOTES PATIENT IN BED, SLEEPING COMFORTABLY. NO ACUTE DISTRESS. AIRWAY SUCTIONED NEEDED. HOB ELEVATED. FEEDING INFUSING WELL VIA JTUBE. GTUBE TO GRAVITY. F/C TO GRAVITY. I&O RECORDED. IVF INFUSING WELL ON PATIENT'S R HAND. NO ACUTE DISTRESS OBSERVED OVERNIGHT. SAFETY AND COMFORT ENSURED. BED IN LOW AND LOCKED POSITION. CALL LIGHT IN REACH. WILL ENDORSE ACCORDINGLY FOR CONTINUITY OF CARE.
[2016-10-23] MEDS: DOCUSATE SODIUM LIQ 100 MG/10 ML UDC GT SCH ×2 (09:00→17:00)
--- NOTE | 2016-10-23 09:00 | NUR ---
RN NOTES RECEIVED PATIENT ON ABED , NONVERBAL, AROUSABLE WITH VERBAL AND TACTILE STIMULI, VENT DEPENDENT , TRACH CARE DONE , TOLERATING CURRENT VENT SETTING WELL, ON TELE CONTROLLED AFIB WITH BBB, R CHEST WALL HD CATH WITH INTACT DRESSING. R WRIST G20, R HAND G20, L HAND G20, SITES CDI, F/C INTACT AND DRAINING VIA GRAVITY. J TUBE TO FEEDING, INFUSING WELL, NO GASTRIC RESIDUAL NOTED, FLUSHED AND KEPT PATENT. G TUBE DRAINING TO CARY BAG WITH MILK CONSISTENCY DRAINAGE. SR UP x3, CALL LIGHT WITHIN EASY REACH , BED IN LOWEST POSITION AND LOCKED , WILL MONITOR PT CLSOELY AND NOTIFY MD FOR FOR ANY SIGNIFICANT CHANGES .
[2016-10-23] MEDS: PROSOURCE / PROSTAT (PYXIS) 30 ML UDC GT SCH (09:06)
[2016-10-23] MEDS: ACETAMINOPHEN 650 MG/20.3 ML UDC GT SCH (09:07)
[2016-10-23] MEDS: VIT B CMPLX 3/FA/VIT C/BIOTIN 1 TAB TABLET GT SCH (09:07)
[2016-10-23] MEDS: ZINC SULFATE 220 MG CAPSULE GT SCH (09:07)
[2016-10-23] MEDS: CALCITRIOL ORAL SOLUTION 1 MCG/ML GT SCH (09:07)
[2016-10-23] MEDS: LEVETIRACETAM SOL (5 ML) 100 MG/ML UDC GT SCH ×2 (09:07→21:12)
[2016-10-23] MEDS: ASCORBIC ACID SYRUP 500 MG/5 ML UDC GT SCH (09:07)
[2016-10-23] MEDS: Z GUARD REMEDY 2 OZ OINT TP SCH (09:08)
[2016-10-23] MEDS: BACITRACIN/POLYMYXIN B 15 GM TUBE TP SCH ×2 (09:08→17:12)
[2016-10-23] MEDS: HYDROGEL DRESSING 90 GM TUBE TP SCH (09:09)
[2016-10-23] MEDS ORDERED: SECONDARY IV SET 1 EA INFUS.SET MC ONE (10:05)
[2016-10-23] MEDS: ALBUMIN 25% 25 GM in PREMIX 1 EA IV PRN (10:12)
[2016-10-23] MEDS: ACETAMINOPHEN 650 MG/20.3 ML UDC GT PRN ×2 (11:59→23:33)
--- NOTE | 2016-10-23 14:00 | NUR ---
RN NOTES DR. TENA NOTIFIED REGARDING THE MILKY YELLOWISH DRAINAGE FROM THE G TUBE LINE ,NO NEW ORDER GIVEN.
--- NOTE | 2016-10-23 18:20 | NUR ---
RN NOTES PT REMAINS THE SAME, TRACH CARE DONE , ON TELE A.FIB WITH NIKKI MALDONADO AT 45CC/HR RUNNING VIA J TUBE , FAMILY AT THE BEDSIDE , PT MEDICATED PER MD ORDER, NO SIGNIFICANT CHANGES NOTED ON THIS SHIFT
--- NOTE | 2016-10-23 18:29 | NUR ---
RT END OF THE SHIFT REPORT: PT. 80 Y OLD FEMALE TRACH'D PORTEX # 8 REMAIN ON VENT WITH NOTED SETTINGS, ALARMS ARE SET AND FUNCTIONAL T/O SHIFT NO DISTRESS NOTED. TX'S GIVEN INLINE Q6/Q8 AND INES. WELL NO ADVERSE REACTION NOTED, EQUAL CHEST RISE NOTED, TECHNICAL PRODUCT MANAGER DONE , HME CHANGED, VENT PLUGGED INTO RED OUTLET. B/S RHONCHI/RALES BILATERALLY, SUX'D FOR MINIMAL WHITE SECRETIONS, NO CHANGES T/O SHIFT. PT. REMAIN STABLE AND AMBU BAG REMAIN AT THE BEDSIDE. CONTINUE FOR MONITORING, REPORT WILL Addendum: 10/23/16 at 1829 by ZANDRA PANTOJA RT Amended: Links added.
--- NOTE | 2016-10-23 23:33 | NUR ---
RN NOTES: REGLAN 5 MG IS GIVEN PRESCRIBED.
[2016-10-24] VITALS (12 sets, daily range): BP systolic 87–109; BP diastolic 26–44
--- NOTE | 2016-10-24 00:57 | NUR ---
RN NOTES: REGLAN 5 MG IS GIVEN PRESCRIBED. THE NEW ORDER OF REGLAN OF 10 MG WILL BE STARTED AT 6 AM.
[2016-10-24] MEDS: ALBUTEROL FS 2.5 MG/0.5 ML VIAL.NEB NEB SCH ×4 (01:40→20:33)
[2016-10-24] MEDS: ACETYLCYSTEINE 10% SOLN 400 MG/4 ML VIAL NEB SCH ×4 (01:40→23:24)
[2016-10-24] MEDS: IPRATROPIUM NEB FS 0.5 MG/2.5 ML AMPUL.NEB IH SCH ×4 (01:40→20:33)
[2016-10-24] MEDS: SILDENAFIL CITRATE 20 MG TABLET GT SCH ×3 (05:00→20:37)
[2016-10-24] MEDS ORDERED: METOCLOPRAMIDE HCL 10 MG/10 ML UDC ONE (05:27)
[2016-10-24] MEDS: RENAL NOVASOURCE 1,000 ML BOTTLE GT PRN (05:34)
[2016-10-24] MEDS: MIDODRINE HCL (5MG) 5 MG TABLET GT SCH ×3 (05:34→20:37)
[2016-10-24] MEDS: METOCLOPRAMIDE HCL 10 MG/10 ML UDC GT SCH ×4 (05:34→17:05)
[2016-10-24] MEDS: PANTOPRAZOLE 40 MG/PACK PACK GT SCH (05:34)
[2016-10-24] MEDS: BLOOD SUGAR DIAGNOSTIC 1 EACH STRIP IN SCH ×3 (06:05→17:05)
--- NOTE | 2016-10-24 06:06 | NUR ---
RN NOTES; REGLAN 10 MG IS GIVEN PRESCRIBED.
[2016-10-24 07:13] LABS: BASOPHILS % (AUTO) 0.3 % (0.0-2.0); EOSINOPHILS # (AUTO) 0.3 /CMM (0.0-0.7); EOSINOPHILS % (AUTO) 2.5 % (0.0-6.0); HEMATOCRIT 22 % (33-45); LYMPHOCYTES # (AUTO) 1.5 /CMM (0.8-4.8); LYMPHOCYTES % (AUTO) 15.2 % (20.0-44.0); MEAN CORPUSCULAR HEMOGLOBIN 31 PG (26.0-33.0); MEAN CORPUSCULAR HGB CONC 32 g/dl (31.0-36.0); MEAN CORPUSCULAR VOLUME 95 fL (82-100); MONOCYTES # (AUTO) 0.7 /CMM (0.1-1.30); MONOCYTES % (AUTO) 6.9 % (2.0-12.0); NEUTROPHILS # (AUTO) 7.5 /CMM (1.8-8.9); NEUTROPHILS % (AUTO) 75.1 % (43.0-81.0); PLATELET COUNT (AUTO) 259 /CMM (150-450); RDW COEFFICIENT OF VARIATION 15.8 (11.5-15.0); RED BLOOD CELL COUNT(AUTO) 2.28 MIL/uL (4.0-5.2)
--- NOTE | 2016-10-24 07:15 | NUR ---
RN INITIAL NOTE PT WAS RECEIVED IN BED, SLEEPING. PT IS NONVERBAL, MOUTHS WORDS, PRIMARILY LATVIAN SPEAKING. PT HAS TRACH, PORTEX #7, AC-18, TV-500, FI02 40%, PEEP-5. SATING WELL. NO S/S OF RESPIRATORY DISTRESS OR SOB. PT IS A-FIB ON TELE MONITOR. CARY CATHETER DRAINING TO GRAVITY. G-TUBE ON LOW SUCTION, DRAINING TO GRAVITY. J-TUBE FLUSHED AND PATENT. NOVASOURCE RUNNING AT 45ML/HR. TOLERATING SETTINGS WELL. RIGHT WRIST, RIGHT HAND AND LEFT HAND IV SITES FLUSHED, PATENT. SKIN IS WARM AND DRY TO TOUCH. SAFETY PRECAUTIONS IMPLEMENTED, BED IN LOCKED, LOW POSITION WITH TWO SIDE RAILS UP. CALL LIGHT WITHIN EASY REACH. WILL MONITOR CLOSELY.
[2016-10-24 07:52] LABS: ALBUMIN 2.4 g/dL (3.4-5.0); BILIRUBIN,TOTAL 0.5 mg/dL (0.2-1.0); CALCIUM, SERUM 8.5 mg/dL (8.5-10.1); CREATININE 2.3 mg/dL (0.6-1.3); MAGNESIUM 1.7 mg/dL (1.8-2.4); PHOSPHORUS 3.3 mg/dL (2.5-4.9); TOTAL PROTEIN, SERUM 6.4 g/dL (6.4-8.2)
[2016-10-24 08:04] LABS: POTASSIUM 2.5 mmol/L (3.5-5.1)
[2016-10-24] MEDS: DOCUSATE SODIUM LIQ 100 MG/10 ML UDC GT SCH ×2 (08:14→17:05)
[2016-10-24] MEDS: CALCITRIOL ORAL SOLUTION 1 MCG/ML GT SCH (08:14)
[2016-10-24] MEDS: VIT B CMPLX 3/FA/VIT C/BIOTIN 1 TAB TABLET GT SCH (08:14)
[2016-10-24] MEDS: LEVETIRACETAM SOL (5 ML) 100 MG/ML UDC GT SCH ×2 (08:14→20:36)
[2016-10-24] MEDS: ASCORBIC ACID SYRUP 500 MG/5 ML UDC GT SCH (08:14)
[2016-10-24] MEDS: PROSOURCE / PROSTAT (PYXIS) 30 ML UDC GT SCH (08:14)
[2016-10-24] MEDS: ACETAMINOPHEN 650 MG/20.3 ML UDC GT SCH (08:14)
[2016-10-24] MEDS: ZINC SULFATE 220 MG CAPSULE GT SCH (08:14)
[2016-10-24] MEDS: BACITRACIN/POLYMYXIN B 15 GM TUBE TP SCH ×2 (08:15→17:05)
[2016-10-24] MEDS: HYDROGEL DRESSING 90 GM TUBE TP SCH (08:15)
[2016-10-24] MEDS: Z GUARD REMEDY 2 OZ OINT TP SCH (08:15)
[2016-10-24] MEDS ORDERED: Magnesium 1GM/D5W 100ML PREMIX 100 ML IV SCH (09:30)
[2016-10-24] MEDS ORDERED: IV SET PRIMARY PUMP SET 1 EA INFUS.SET MC ONE ×2 (10:12→11:18)
[2016-10-24] MEDS ORDERED: SECONDARY IV SET 1 EA INFUS.SET MC ONE (10:13)
[2016-10-24] MEDS ORDERED: IV NS 0.9% 250 ML IV ONE ×2 (10:18→12:35)
[2016-10-24] MEDS: POTASSIUM CL. PREMIX PERIPHER. 50 ML IV SCH ×4 (10:23→14:22)
[2016-10-24] MEDS: INSULIN REGULAR, HUMAN 100 UNIT/ML 3 ML VIAL SQ PRN ×2 (12:35→17:10)
[2016-10-24] MEDS ORDERED: BLOOD IV SET 1 EA INFUS.SET MC ONE (12:35)
--- NOTE | 2016-10-24 13:26 | NUR ---
PT. GETTING GETTING BLOOD TRANSFUSION, COULD NOT DO CT SCAN. NURSE WILL CALL US WHEN FINISHED. NOTES BY KARYNA
--- NOTE | 2016-10-24 19:04 | NUR ---
RN CLOSING NOTE ALL MD ORDERS CARRIED OUT. PT KEPT CLEAN AND DRY. SAFETY PRECAUTIONS IN PLACE AT ALL TIMES. REPORT WILL BE GIVEN TO ONCOMING PM RN FOR CONNOR.
--- NOTE | 2016-10-24 19:20 | NUR ---
RN INITIAL NOTE RECEIVED PT IN NO ACUTE DISTRESS IN BED. PT IS A/O X 2 AND ABLE TO MOUTH WORDS. PT IS KINYARWANDA SPEAKING. PT HAS FAMILY AT BEDSIDE. PT IS ON MECHANICAL VENT VIA TRACH. TRACH SITE IS CLEAN DRY AND INTACT. PT TOLERATING VENT SETTING WELL. PT IS ON TELE WITH AFIB ON THE MONITOR. PT HAS GTUBE/JTUBE IN PLACE THAT IS CLEAN DRY INTACT AND PATENT WITH NOVASOURCE @ 45ML/HR INTO JTUBE AND GTUBE IS DRAINING BY GRAVITY. PT HAS F/C THAT IS CLEAN DRY INTACT AND PATENT WITH FLETCHER COLOR URINE DRAINING. PT HAS RCHEST WALL HD CATH THAT IS CLEAN DRY AND INTACT. PT HAS R WRIST 20G THAT IS CLEAN DRY INTACT AND PATENT WITH FLUSH. PT HAS R HAND 20G THAT IS CLEAN DRY INTACT AND PATENT WITH SALINE LOCK. PT HAS L HAND 20G THAT IS CLEAN DRY INTACT AND PATENT WITH SALINE FLUSH. BED IN LOW LOCK POSITION WITH RAILS UP X 2. CALL LIGHT WITHIN REACH AND ALL SAFETY MEASURES ENSURED AND CARRIED OUT. WILL CONTINUE TO MONITOR PT.
[2016-10-24 20:28] LABS: BASOPHILS % (AUTO) 0.4 % (0.0-2.0); EOSINOPHILS # (AUTO) 0.3 /CMM (0.0-0.7); EOSINOPHILS % (AUTO) 2.5 % (0.0-6.0); HEMATOCRIT 25 % (33-45); HEMOGLOBIN 8.1 g/dL (11.5-14.8); LYMPHOCYTES # (AUTO) 1.5 /CMM (0.8-4.8); LYMPHOCYTES % (AUTO) 11.1 % (20.0-44.0); MEAN CORPUSCULAR HEMOGLOBIN 30 PG (26.0-33.0); MEAN CORPUSCULAR HGB CONC 32 g/dl (31.0-36.0); MEAN CORPUSCULAR VOLUME 94 fL (82-100); MONOCYTES # (AUTO) 0.8 /CMM (0.1-1.30); MONOCYTES % (AUTO) 6.1 % (2.0-12.0); NEUTROPHILS # (AUTO) 10.7 /CMM (1.8-8.9); NEUTROPHILS % (AUTO) 79.9 % (43.0-81.0); PLATELET COUNT (AUTO) 256 /CMM (150-450); RDW COEFFICIENT OF VARIATION 16.3 (11.5-15.0); RED BLOOD CELL COUNT(AUTO) 2.66 MIL/uL (4.0-5.2); WHITE BLOOD COUNT (AUTO) 13.4 K/uL (4.3-11.0)
[2016-10-25] VITALS: BP 97/36
[2016-10-25] MEDS: METOCLOPRAMIDE HCL 10 MG/10 ML UDC GT SCH ×5 (00:22→23:57)
[2016-10-25] MEDS: BLOOD SUGAR DIAGNOSTIC 1 EACH STRIP IN SCH ×4 (00:25→18:00)
[2016-10-25] MEDS: ALBUTEROL FS 2.5 MG/0.5 ML VIAL.NEB NEB SCH ×4 (02:18→20:20)
[2016-10-25] MEDS: IPRATROPIUM NEB FS 0.5 MG/2.5 ML AMPUL.NEB IH SCH ×4 (02:18→20:19)
[2016-10-25 04:00] VITALS: BP 94/35
[2016-10-25] MEDS: MIDODRINE HCL (5MG) 5 MG TABLET GT SCH ×3 (04:20→21:40)
[2016-10-25] MEDS: SILDENAFIL CITRATE 20 MG TABLET GT SCH ×3 (04:20→21:00)
[2016-10-25] MEDS: PANTOPRAZOLE 40 MG/PACK PACK GT SCH (05:27)
--- NOTE | 2016-10-25 06:27 | NUR ---
RN CLOSING NOTE PT REMAINS IN NO ACUTE DISTRESS IN BED. PT DID NOT HAVE ANY SIGNIFICANT CHANGE IN CONDITION DURING SHIFT. ALL NEEDS MET, ALL ORDERS CARRIED OUT. PT TOLERATED VENT SETTING WELL WITH O2 SAT @ 100%. WILL ENDORSE TO AM RN FOR CONTINUITY OF CARE.
--- NOTE | 2016-10-25 07:15 | NUR ---
RN INITIAL NOTE PT RECEIVED IN BED, SLEEPING. PT IS NONVERBAL, MOUTHS WORDS, PRIMARILY SETSWANA SPEAKING. ABLE TO COMMUNICATE NEEDS. PT HAS TRACH, PORTEX #7, AC-18, TV-500, FI02-40%, PEEP-5. SATING WELL ON THESE SETTINGS. NO S/S OF RESPIRATORY DISTRESS OR SOB. PATIENT IS A-FIB ON TELE MONITOR. CARY CATHETER DRAINING TO GRAVITY. IV SITES FLUSHED AND PATENT. DRESSING C/D/I. JTUBE FLUSHED, PATENT. NOVASOURCE RUNNING AT 45ML/HR. TOLERATING SETTINGS WELL. GTUBE DRAINING TO GRAVITY. SKIN IS WARM AND DRY TO TOUCH. SAFETY PRECAUTIONS IN PLACE, BED IN LOCKED, LOW POSITION. CALL LIGHT WITHIN EASY REACH. WILL CONTINUE TO MONITOR.
[2016-10-25] MEDS: ACETYLCYSTEINE 10% SOLN 400 MG/4 ML VIAL NEB SCH ×3 (07:55→23:53)
[2016-10-25 08:00] VITALS: BP 94/41
[2016-10-25] MEDS: CALCITRIOL ORAL SOLUTION 1 MCG/ML GT SCH (09:00)
[2016-10-25] MEDS: DOCUSATE SODIUM LIQ 100 MG/10 ML UDC GT SCH ×2 (09:03→17:00)
[2016-10-25] MEDS: ACETAMINOPHEN 650 MG/20.3 ML UDC GT SCH (09:03)
[2016-10-25] MEDS: PROSOURCE / PROSTAT (PYXIS) 30 ML UDC GT SCH (09:03)
[2016-10-25] MEDS: ASCORBIC ACID SYRUP 500 MG/5 ML UDC GT SCH (09:03)
[2016-10-25] MEDS: LEVETIRACETAM SOL (5 ML) 100 MG/ML UDC GT SCH ×2 (09:04→21:39)
[2016-10-25] MEDS: BACITRACIN/POLYMYXIN B 15 GM TUBE TP SCH ×2 (09:04→17:00)
[2016-10-25] MEDS: Z GUARD REMEDY 2 OZ OINT TP SCH (09:04)
[2016-10-25] MEDS: VIT B CMPLX 3/FA/VIT C/BIOTIN 1 TAB TABLET GT SCH (09:04)
[2016-10-25] MEDS: HYDROGEL DRESSING 90 GM TUBE TP SCH (09:04)
[2016-10-25] MEDS: ZINC SULFATE 220 MG CAPSULE GT SCH (09:04)
[2016-10-25 12:00] VITALS: BP 80/39
[2016-10-25 12:35] LABS: ALBUMIN 2.3 g/dL (3.4-5.0); BILIRUBIN,TOTAL 0.6 mg/dL (0.2-1.0); CALCIUM, SERUM 8.4 mg/dL (8.5-10.1); CREATININE 2.4 mg/dL (0.6-1.3); MAGNESIUM 2.2 mg/dL (1.8-2.4); PHOSPHORUS 3.1 mg/dL (2.5-4.9); TOTAL PROTEIN, SERUM 6.5 g/dL (6.4-8.2)
[2016-10-25 12:43] LABS: BASOPHILS % (AUTO) 0.4 % (0.0-2.0); EOSINOPHILS # (AUTO) 0.4 /CMM (0.0-0.7); EOSINOPHILS % (AUTO) 3.7 % (0.0-6.0); HEMATOCRIT 25 % (33-45); HEMOGLOBIN 8.1 g/dL (11.5-14.8); LYMPHOCYTES # (AUTO) 1.3 /CMM (0.8-4.8); LYMPHOCYTES % (AUTO) 12.3 % (20.0-44.0); MEAN CORPUSCULAR HEMOGLOBIN 31 PG (26.0-33.0); MEAN CORPUSCULAR HGB CONC 33 g/dl (31.0-36.0); MEAN CORPUSCULAR VOLUME 94 fL (82-100); MONOCYTES # (AUTO) 0.5 /CMM (0.1-1.30); MONOCYTES % (AUTO) 4.9 % (2.0-12.0); NEUTROPHILS # (AUTO) 8.6 /CMM (1.8-8.9); NEUTROPHILS % (AUTO) 78.7 % (43.0-81.0); PLATELET COUNT (AUTO) 251 /CMM (150-450); RDW COEFFICIENT OF VARIATION 16.4 (11.5-15.0); RED BLOOD CELL COUNT(AUTO) 2.62 MIL/uL (4.0-5.2); WHITE BLOOD COUNT (AUTO) 10.9 K/uL (4.3-11.0)
[2016-10-25] MEDS: POTASSIUM CL. PREMIX PERIPHER. 50 ML IV SCH ×8 (13:30→20:30)
[2016-10-25 13:35] LABS: INR 1.17 (0.87-1.13); PROTHROMBIN TIME 12.7 SECS (9.5-12.7)
[2016-10-25] MEDS: ACETAMINOPHEN 650 MG/20.3 ML UDC GT PRN (15:32)
[2016-10-25 16:00] VITALS: BP 82/36
[2016-10-25] MEDS ORDERED: SECONDARY IV SET 1 EA INFUS.SET MC ONE (16:48)
[2016-10-25] MEDS: ALBUMIN 25% 25 GM in PREMIX 1 EA IV PRN (17:42)
--- NOTE | 2016-10-25 19:08 | NUR ---
RN CLOSING NOTE ALL MD ORDERS CARRIED OUT. PATIENT KEPT CLEAN AND DRY. SAFETY PRECAUTIONS IN PLACE AT ALL TIMES. REPORT WILL BE GIVEN TO PM RN FOR CONNOR.,
--- NOTE | 2016-10-25 19:20 | NUR ---
RN INITIAL NOTE RECEIVED PT IN NO ACUTE DISTRESS IN BED. PT IS A/O X 2 AND ABLE TO MOUTH WORDS. PT IS THAI SPEAKING. PT HAS FAMILY AT BEDSIDE. PT IS ON MECHANICAL VENT VIA TRACH. TRACH SITE IS CLEAN DRY AND INTACT. PT TOLERATING VENT SETTING WELL. PT IS ON TELE WITH AFIB ON THE MONITOR. PT HAS GTUBE/JTUBE IN PLACE THAT IS CLEAN DRY INTACT AND PATENT WITH NOVASOURCE @ 45ML/HR INTO JTUBE AND GTUBE IS DRAINING BY GRAVITY. PT HAS F/C THAT IS CLEAN DRY INTACT AND PATENT WITH FLETCHER COLOR URINE DRAINING. PT HAS RCHEST WALL HD CATH THAT IS CLEAN DRY AND INTACT. PT HAS R WRIST 20G THAT IS CLEAN DRY INTACT AND PATENT WITH FLUSH. PT HAS R HAND 20G THAT IS CLEAN DRY INTACT AND PATENT WITH SALINE LOCK. PT HAS L HAND 20G THAT IS CLEAN DRY INTACT AND PATENT WITH SALINE FLUSH. BED IN LOW LOCK POSITION WITH RAILS UP X 2. CALL LIGHT WITHIN REACH AND ALL SAFETY MEASURES ENSURED AND CARRIED OUT. WILL CONTINUE TO MONITOR PT.
[2016-10-25 20:00] VITALS: BP 117/55
[2016-10-26] VITALS: BP 122/68
[2016-10-26] MEDS: BLOOD SUGAR DIAGNOSTIC 1 EACH STRIP IN SCH ×4 (00:03→17:22)
[2016-10-26] MEDS: ACETAMINOPHEN 650 MG/20.3 ML UDC GT PRN (03:38)
[2016-10-26 04:00] VITALS: BP 117/58
[2016-10-26] MEDS: ALBUTEROL FS 2.5 MG/0.5 ML VIAL.NEB NEB SCH ×4 (04:14→19:24)
[2016-10-26] MEDS: IPRATROPIUM NEB FS 0.5 MG/2.5 ML AMPUL.NEB IH SCH ×4 (04:14→19:24)
[2016-10-26] MEDS: SILDENAFIL CITRATE 20 MG TABLET GT SCH ×3 (05:00→21:15)
[2016-10-26] MEDS: PANTOPRAZOLE 40 MG/PACK PACK GT SCH (05:30)
[2016-10-26] MEDS: METOCLOPRAMIDE HCL 10 MG/10 ML UDC GT SCH ×3 (05:30→17:21)
[2016-10-26] MEDS: MIDODRINE HCL (5MG) 5 MG TABLET GT SCH ×3 (05:34→21:15)
--- NOTE | 2016-10-26 06:08 | NUR ---
RN CLOSING NOTE PT REMAINS IN NO ACUTE DISTRESS IN BED. PT DID NOT HAVE ANY SIGNIFICANT CHANGE IN CONDITION DURING SHIFT. ALL NEEDS MET, ALL ORDERS CARRIED OUT. PT TOLERATED VENT SETTING WELL WITH O2 SAT @ 100%. PT AWAITING PEG REVISION. ALL CONSENTS SIGNED. WILL ENDORSE TO AM RN FOR CONTINUITY OF CARE.
[2016-10-26 06:47] LABS: CALCIUM, SERUM 8.8 mg/dL (8.5-10.1); CREATININE 1.8 mg/dL (0.6-1.3); POTASSIUM 3.1 mmol/L (3.5-5.1)
--- NOTE | 2016-10-26 06:55 | NUR ---
RN INITIAL NOTE RECEIVED PT FROM AUBREY VIERA PM NURSE. PT A/O X2 TUVALUAN SPEAKING MOUTH WORDS. PORTEX # 7, AC 18 TV 500 FI02 40% PEEP 5. TELE CONTROLLED A-FIB.SUPRAPUBIC CATH INTACT. AWAITING GT-REVISION. NPO SINCE 2299. F/C INTACT.IV R WRIST#20G, R HAND #20G L HAND #20G FLUSHED PATENT AND INTACT R CW HD CATH. WILL CONTINUE TO MONITOR. PT CLEAN WARM AND DRY. ALL SAFETY MEASURES IN PLACE WILL CONTINUE TO MONITOR CLOSELY.
--- NOTE | 2016-10-26 07:36 | NUR ---
RN NOTE DR. PRITCHETT CALLED WILL CANCEL REVISION OF J-TUBE. PER EGD TUBE IS INTACT. CAN CONTINUE FEEDING. MARY VIERAAPIARIST WILL BE NOTIFIED.
[2016-10-26] MEDS: ACETYLCYSTEINE 10% SOLN 400 MG/4 ML VIAL NEB SCH ×2 (07:50→14:41)
[2016-10-26 08:00] VITALS: BP 99/54
[2016-10-26] MEDS: LEVETIRACETAM SOL (5 ML) 100 MG/ML UDC GT SCH ×2 (08:24→21:15)
[2016-10-26] MEDS: ASCORBIC ACID SYRUP 500 MG/5 ML UDC GT SCH (08:24)
[2016-10-26] MEDS: DOCUSATE SODIUM LIQ 100 MG/10 ML UDC GT SCH ×2 (08:24→17:21)
[2016-10-26] MEDS: CALCITRIOL ORAL SOLUTION 1 MCG/ML GT SCH (08:25)
[2016-10-26] MEDS: VIT B CMPLX 3/FA/VIT C/BIOTIN 1 TAB TABLET GT SCH (08:25)
[2016-10-26] MEDS: ZINC SULFATE 220 MG CAPSULE GT SCH (08:25)
[2016-10-26] MEDS: PROSOURCE / PROSTAT (PYXIS) 30 ML UDC GT SCH (08:25)
[2016-10-26] MEDS: BACITRACIN/POLYMYXIN B 15 GM TUBE TP SCH ×2 (08:26→17:22)
[2016-10-26] MEDS: Z GUARD REMEDY 2 OZ OINT TP SCH (08:26)
[2016-10-26] MEDS: HYDROGEL DRESSING 90 GM TUBE TP SCH (08:27)
[2016-10-26] MEDS: RENAL NOVASOURCE 1,000 ML BOTTLE GT PRN (08:27)
[2016-10-26] MEDS ORDERED: IV SET PRIMARY PUMP SET 1 EA INFUS.SET MC ONE (08:28)
[2016-10-26] MEDS ORDERED: IV NS 0.9% 250 ML IV ONE (08:29)
[2016-10-26] MEDS: ACETAMINOPHEN 650 MG/20.3 ML UDC GT SCH (08:33)
[2016-10-26] MEDS ORDERED: SECONDARY IV SET 1 EA INFUS.SET MC ONE (09:07)
[2016-10-26] MEDS: POTASSIUM CL. PREMIX PERIPHER. 50 ML IV SCH ×6 (09:18→18:29)
--- NOTE | 2016-10-26 11:12 | NUR ---
AYLIN SIMON 250ML RUNNING @ [email or web address] W/ ABX.
[2016-10-26 12:00] VITALS: BP 97/44
[2016-10-26] MEDS: INSULIN REGULAR, HUMAN 100 UNIT/ML 3 ML VIAL SQ PRN (12:18)
[2016-10-26 16:00] VITALS: BP 94/46
--- NOTE | 2016-10-26 18:20 | NUR ---
RN NOTE PHARMACY CALLED TO [facility] LAST 11/[address] PRITCHETT ORDER FROM 10/25/16.
[2016-10-26] MEDS ORDERED: POTASSIUM CL. PREMIX PERIPHER. 50 ML IV SCH (18:30)
--- NOTE | 2016-10-26 19:02 | NUR ---
RN CLOSING NOTE REPORT GIVEN TO MILADY ROYAL PM NURSE FOR CONNOR. PT A/O X2 MACANESE SPEAKING MOUTH WORDS. PORTEX # 7, AC 18 TV 500 FI02 40% PEEP 5. TELE CONTROLLED A-FIB THROUGHOUT SHIFT. F/C INTACT. NOVASOURCE J-TUBE WITH GASTRIC FLUID DRAINING. PT TOLERATED FEEDING THROUGHOUT SHIFT NO RESIDUAL. IV R WRIST#20G, R HAND #20G L HAND #20G PATENT AND INTACT R CW HD CATH. PT CLEAN WARM AND DRY. ALL SAFETY MEASURES IN PLACE. ALL MEDICATIONS GIVEN ALL ORDERS CARRIED OUT.
--- NOTE | 2016-10-26 19:21 | NUR ---
MED NOTE: ALL K REPLACEMENT ADMINISTERED UNDER NEW PHARM ENTRY BY JOSE HWANG.
[2016-10-26 20:00] VITALS: BP 97/47
[2016-10-27] VITALS: BP 92/46
[2016-10-27] MEDS: BLOOD SUGAR DIAGNOSTIC 1 EACH STRIP IN SCH ×5 (00:02→23:07)
[2016-10-27] MEDS: METOCLOPRAMIDE HCL 10 MG/10 ML UDC GT SCH ×5 (00:02→23:07)
[2016-10-27] MEDS: INSULIN REGULAR, HUMAN 100 UNIT/ML 3 ML VIAL SQ PRN ×3 (00:07→23:08)
[2016-10-27] MEDS: ACETYLCYSTEINE 10% SOLN 400 MG/4 ML VIAL NEB SCH ×3 (00:24→15:28)
[2016-10-27] MEDS: ALBUTEROL FS 2.5 MG/0.5 ML VIAL.NEB NEB SCH ×4 (00:30→20:23)
[2016-10-27] MEDS: IPRATROPIUM NEB FS 0.5 MG/2.5 ML AMPUL.NEB IH SCH ×4 (00:30→20:24)
[2016-10-27 04:00] VITALS: BP 95/40
[2016-10-27] MEDS: PANTOPRAZOLE 40 MG/PACK PACK GT SCH (05:54)
[2016-10-27] MEDS: SILDENAFIL CITRATE 20 MG TABLET GT SCH ×3 (05:55→20:12)
[2016-10-27] MEDS: MIDODRINE HCL (5MG) 5 MG TABLET GT SCH ×3 (05:55→20:12)
--- NOTE | 2016-10-27 07:20 | NUR ---
RN INITIAL NOTE RECEIVED PT FROM MILADY ROYAL PM NURSE. PT A/O X2 GREENLANDIC SPEAKING MOUTH WORDS. PORTEX # 7, AC 18 TV 500 FI02 40% PEEP 5. TELE CONTROLLED A-FIB.SUPRAPUBIC. F/C INTACT. GTF NOVASOURSE 45ML/ HR PT TOLERATING FEEDING .IV R WRIST#20G, R HAND #20G L HAND #20G FLUSHED PATENT AND INTACT R CW HD CATH. WILL CONTINUE TO MONITOR. PT CLEAN WARM AND DRY. ALL SAFETY MEASURES IN PLACE.
[2016-10-27 08:00] VITALS: BP 93/43
[2016-10-27] MEDS: ACETAMINOPHEN 650 MG/20.3 ML UDC GT SCH (08:46)
[2016-10-27] MEDS: LEVETIRACETAM SOL (5 ML) 100 MG/ML UDC GT SCH ×2 (08:46→20:11)
[2016-10-27] MEDS: VIT B CMPLX 3/FA/VIT C/BIOTIN 1 TAB TABLET GT SCH (08:46)
[2016-10-27] MEDS: PROSOURCE / PROSTAT (PYXIS) 30 ML UDC GT SCH (08:46)
[2016-10-27] MEDS: CALCITRIOL ORAL SOLUTION 1 MCG/ML GT SCH (08:46)
[2016-10-27] MEDS: ZINC SULFATE 220 MG CAPSULE GT SCH (08:46)
[2016-10-27] MEDS: ASCORBIC ACID SYRUP 500 MG/5 ML UDC GT SCH (08:46)
[2016-10-27] MEDS: DOCUSATE SODIUM LIQ 100 MG/10 ML UDC GT SCH ×2 (08:47→17:18)
[2016-10-27] MEDS: HYDROGEL DRESSING 90 GM TUBE TP SCH (08:47)
[2016-10-27] MEDS: Z GUARD REMEDY 2 OZ OINT TP SCH (08:48)
[2016-10-27] MEDS: BACITRACIN/POLYMYXIN B 15 GM TUBE TP SCH ×2 (08:48→17:18)
[2016-10-27 12:00] VITALS: BP 82/38
[2016-10-27] MEDS: RENAL NOVASOURCE 1,000 ML BOTTLE GT PRN (12:27)
[2016-10-27 16:00] VITALS: BP 82/36
--- NOTE | 2016-10-27 19:12 | NUR ---
RN CLOSING NOTE REPORT GIVEN TO BARI DUNCAN NURSE FOR CONNOR. PT A/O X2 SERBIAN SPEAKING MOUTH WORDS. PORTEX # 7, AC 18 TV 500 FI02 40% PEEP 5. TELE CONTROLLED A-FIB THROUGH OUT SHIFT. F/C INTACT. GTF NOVASOURSE 45ML/ HR PT TOLERATING FEEDING NO RESIDUAL THROUGHOUT SHIFT.IV R WRIST#20G, R HAND #20G L HAND #20G FLUSHED PATENT AND INTACT R CW HD CATH 1 L OUT TODAY. PT CLEAN WARM AND DRY. ALL SAFETY MEASURES IN PLACE. ALL MEDICATIONS GIVEN ALL ORDERS CARRIED OUT.
[2016-10-27 20:00] VITALS: BP 92/36
--- NOTE | 2016-10-27 20:00 | NUR ---
received patient in bed, son by the bed side, patient is a&o, trach/vent but able to let her needs known by mouth wording. vss, afebrile, no distress noted, denies pain. patient is turned and repositioned for more comfort. continue to monitor
[2016-10-28] VITALS: BP_SYST 86; BP_DIAS 32; BP_DIAS 38
--- NOTE | 2016-10-28 | NUR ---
bs 103- no coverage at this time
[2016-10-28] MEDS: ACETYLCYSTEINE 10% SOLN 400 MG/4 ML VIAL NEB SCH ×3 (01:21→13:13)
[2016-10-28] MEDS: ALBUTEROL FS 2.5 MG/0.5 ML VIAL.NEB NEB SCH ×3 (01:21→13:13)
[2016-10-28] MEDS: IPRATROPIUM NEB FS 0.5 MG/2.5 ML AMPUL.NEB IH SCH ×3 (01:21→13:13)
[2016-10-28 04:00] VITALS: BP 82/35
[2016-10-28] MEDS: MIDODRINE HCL (5MG) 5 MG TABLET GT SCH ×3 (05:09→21:14)
[2016-10-28] MEDS: SILDENAFIL CITRATE 20 MG TABLET GT SCH ×3 (05:09→21:15)
[2016-10-28] MEDS: BLOOD SUGAR DIAGNOSTIC 1 EACH STRIP IN SCH ×4 (05:11→23:33)
[2016-10-28] MEDS: INSULIN REGULAR, HUMAN 100 UNIT/ML 3 ML VIAL SQ PRN ×2 (05:11→18:18)
[2016-10-28] MEDS: PANTOPRAZOLE 40 MG/PACK PACK GT SCH (05:11)
[2016-10-28] MEDS: METOCLOPRAMIDE HCL 10 MG/10 ML UDC GT SCH ×4 (05:11→23:33)
--- NOTE | 2016-10-28 05:59 | NUR ---
bs 131 at this time- 2 units of insulin given as ordered continue to monitor
--- NOTE | 2016-10-28 07:10 | NUR ---
RN INITIAL NOTE RECEIVED PT FROM BARI VIERA PM NURSE. PT A/O X2 [place] TIM[place] SPEAKING MOUTH WORDS. PORTEX # 7, AC 18 TV 500 FI02 40% PEEP 5. TELE CONTROLLED A-FIB.SUPRAPUBIC. F/C INTACT. GTF NOVASOURSE 45ML/ HR .IV R WRIST#20G, R HAND #20G L HAND #20G FLUSHED PATENT AND INTACT R CW HD CATH. WILL CONTINUE TO MONITOR. PT CLEAN WARM AND DRY. ALL SAFETY MEASURES IN PLACE.
[2016-10-28 08:00] VITALS: BP 91/31
[2016-10-28] MEDS: ZINC SULFATE 220 MG CAPSULE GT SCH (08:25)
[2016-10-28] MEDS: VIT B CMPLX 3/FA/VIT C/BIOTIN 1 TAB TABLET GT SCH (08:25)
[2016-10-28] MEDS: ASCORBIC ACID SYRUP 500 MG/5 ML UDC GT SCH (08:25)
[2016-10-28] MEDS: PROSOURCE / PROSTAT (PYXIS) 30 ML UDC GT SCH (08:26)
[2016-10-28] MEDS: DOCUSATE SODIUM LIQ 100 MG/10 ML UDC GT SCH ×2 (08:26→18:12)
[2016-10-28] MEDS: ACETAMINOPHEN 650 MG/20.3 ML UDC GT SCH (08:26)
[2016-10-28] MEDS: CALCITRIOL ORAL SOLUTION 1 MCG/ML GT SCH (08:26)
[2016-10-28] MEDS: LEVETIRACETAM SOL (5 ML) 100 MG/ML UDC GT SCH ×2 (08:26→21:14)
[2016-10-28] MEDS: BACITRACIN/POLYMYXIN B 15 GM TUBE TP SCH ×2 (08:26→18:14)
[2016-10-28] MEDS: HYDROGEL DRESSING 90 GM TUBE TP SCH (08:27)
[2016-10-28] MEDS: Z GUARD REMEDY 2 OZ OINT TP SCH (08:27)
--- NOTE | 2016-10-28 08:45 | NUR ---
RN NOTE PT C/O OF ITCHINESS ALL OVER BODY CALLED DR. MELÉNDEZ AWAITING CALL BACK.
--- NOTE | 2016-10-28 10:57 | NUR ---
RN NOTE DR. MELÉNDEZ ORDERED F/C TO BE REMOVED AND URINE CX SENT OUT. ORDERED BENADRYL FOR ITCHINESS FOR PT.
[2016-10-28] MEDS: diphenhydrAMINE HCL 50 MG/ML VIAL IV PRN (10:59)
[2016-10-28 12:00] VITALS: BP_SYST 115; BP_SYST 98; BP_DIAS 55; BP_DIAS 56
[2016-10-28] MEDS: RENAL NOVASOURCE 1,000 ML BOTTLE GT PRN (12:13)
--- NOTE | 2016-10-28 13:47 | NUR ---
RN NOTE F/C REMOVED URINE CX OBTAINED.
[2016-10-28 16:00] VITALS: BP_SYST 111; BP_SYST 93; BP_DIAS 58; BP_DIAS 61
[2016-10-28 16:03] LABS: APPEARANCE,URINE CLOUDY (CLEAR); BILIRUBIN,URINE 1+ (NEGATIVE); BLOOD, URINE 2+ Ery/uL (NEGATIVE); COLOR,URINE YELLOW (YELLOW); KETONES,URINE NEGATIVE (NEGATIVE); LEUKOCYTE ESTERASE ,URINE 3+ (NEGATIVE); NITRITE, URINE NEGATIVE (NEGATIVE); PROTEIN,URINE 1+ mg/dl (NEGATIVE); UGLUCOSE NEGATIVE (NEGATIVE); UROBILINOGEN,URINE 0.2 EU/dL (0.2)
[2016-10-28 16:59] LABS: BACTERIA,URINE Moderate /HPF (None Seen); SQUAMOUS EPITHELIAL CELL,UR Moderate /HPF (None Seen); WBC,URINE 21-50 /HPF (0-3)
[2016-10-28 17:00] LABS: YEAST,URINE Moderate /HPF (None Seen)
--- NOTE | 2016-10-28 19:32 | NUR ---
RN CLOSING NOTE REPORT GIVEN TO TOMASA NURSE FOR CONNOR. PT A/O X2 PALESTINIAN SPEAKING MOUTH WORDS. PORTEX # 7, AC 18 TV 500 FI02 40% PEEP 5. TELE CONTROLLED A-FIB THROUGH OUT SHIFT. GTF NOVASOURSE 45ML/ HR PT TOLERATING FEEDING NO RESIDUAL THROUGHOUT SHIFT.IV R WRIST#20G, R HAND #20G L HAND #20G FLUSHED PATENT AND INTACT R CW HD TOMORROW. PT CLEAN WARM AND DRY. ALL SAFETY MEASURES IN PLACE. ALL MEDICATIONS GIVEN ALL ORDERS CARRIED OUT.
--- NOTE | 2016-10-28 19:53 | NUR ---
AGENCY DEVELOPMENT MANAGER NOTES RECEIVED PT ASLEEP IN IN BED A/OX1-2 ON VENT AC18TV 500 FIO2 40% PEEP 5, NO EPISODE OF DISTRESS NOTED OR C/O OF PAIN SON BY BED SIDE, WITH AFIB CONTROLLED WITH ABDOMINAL DISTENTION, ENDORSED PT HAD 1 BOWEL WITH GTUBE TO DRAINAGE PT CLEAN AND DRY, WELL REPOSITIONED, ALL NEEDS ATTENDED.
[2016-10-28 20:00] VITALS: BP 127/50
--- NOTE | 2016-10-28 23:40 | NUR ---
BS 112 NO COVERAGE
[2016-10-29] VITALS: BP 115/30
[2016-10-29] MEDS: IPRATROPIUM NEB FS 0.5 MG/2.5 ML AMPUL.NEB IH SCH ×5 (00:04→21:01)
[2016-10-29] MEDS: ACETYLCYSTEINE 10% SOLN 400 MG/4 ML VIAL NEB SCH ×3 (00:04→15:24)
[2016-10-29] MEDS: ALBUTEROL FS 2.5 MG/0.5 ML VIAL.NEB NEB SCH ×5 (00:04→21:00)
[2016-10-29 04:00] VITALS: BP 110/46
[2016-10-29] MEDS: METOCLOPRAMIDE HCL 10 MG/10 ML UDC GT SCH ×3 (05:32→17:10)
[2016-10-29] MEDS: PANTOPRAZOLE 40 MG/PACK PACK GT SCH (05:32)
[2016-10-29] MEDS: SILDENAFIL CITRATE 20 MG TABLET GT SCH ×3 (05:33→21:15)
[2016-10-29] MEDS: MIDODRINE HCL (5MG) 5 MG TABLET GT SCH ×3 (05:35→21:19)
[2016-10-29] MEDS: RENAL NOVASOURCE 1,000 ML BOTTLE GT PRN (05:35)
[2016-10-29] MEDS: BLOOD SUGAR DIAGNOSTIC 1 EACH STRIP IN SCH ×3 (05:36→17:12)
[2016-10-29] MEDS: diphenhydrAMINE HCL 50 MG/ML VIAL IV PRN (06:37)
--- NOTE | 2016-10-29 06:39 | NUR ---
BENADRRY 0.5ML GIVEN FOR C/O OF ITCHING.
[2016-10-29 07:04] LABS: BASOPHILS # (AUTO) 0.1 /CMM (0.0-0.2); BASOPHILS % (AUTO) 0.8 % (0.0-2.0); EOSINOPHILS # (AUTO) 0.5 /CMM (0.0-0.7); EOSINOPHILS % (AUTO) 4.8 % (0.0-6.0); HEMATOCRIT 23 % (33-45); HEMOGLOBIN 7.5 g/dL (11.5-14.8); LYMPHOCYTES # (AUTO) 1.6 /CMM (0.8-4.8); LYMPHOCYTES % (AUTO) 16.8 % (20.0-44.0); MEAN CORPUSCULAR HEMOGLOBIN 31 PG (26.0-33.0); MEAN CORPUSCULAR HGB CONC 33 g/dl (31.0-36.0); MEAN CORPUSCULAR VOLUME 94 fL (82-100); MONOCYTES # (AUTO) 0.6 /CMM (0.1-1.30); MONOCYTES % (AUTO) 6.9 % (2.0-12.0); NEUTROPHILS # (AUTO) 6.6 /CMM (1.8-8.9); NEUTROPHILS % (AUTO) 70.7 % (43.0-81.0); PLATELET COUNT (AUTO) 214 /CMM (150-450); RDW COEFFICIENT OF VARIATION 16.4 (11.5-15.0); RED BLOOD CELL COUNT(AUTO) 2.41 MIL/uL (4.0-5.2); WHITE BLOOD COUNT (AUTO) 9.3 K/uL (4.3-11.0)
--- NOTE | 2016-10-29 07:15 | NUR ---
GRAY TENDER NOTES RECEIVED PT ASLEEP IN IN BED A/OX1-2 ON VENT AC18TV 500 FIO2 40% PEEP 5, NO EPISODE OF DISTRESS NOTED OR C/O OF PAIN SON BY BED SIDE, WITH AFIB CONTROLLED WITH ABDOMINAL DISTENTION, GTUBE TO DRAINAGE CDI AND PATENT. SAFETY MEASURES IN PLACE,BED IN LOW AND LOCK POSITION.
[2016-10-29 07:24] LABS: CALCIUM, SERUM 9.1 mg/dL (8.5-10.1); CARBON DIOXIDE 29 mmol/L (21-32); CHLORIDE 98 mmol/L (98-107); CREATININE 2.5 mg/dL (0.6-1.3); GLUCOSE 111 mg/dL (74-106); PHOSPHORUS 3.1 mg/dL (2.5-4.9); POTASSIUM 3.4 mmol/L (3.5-5.1); SODIUM SERUM 137 mmol/L (136-145); UREA NITROGEN, BLOOD 70 mg/dL (7-18)
--- NOTE | 2016-10-29 07:26 | NUR ---
CLOSING NOTES ENDORSED PT AWAKE IN BED,ABLE TO MAKE NEEDS KNOWN,WITH AFIB CONTROLLED, NO C/O OF PAIN OR DISTRESS, KEPT CLEAN AND DRY WELL REPOSITIONED.
[2016-10-29 08:00] VITALS: BP 87/43
[2016-10-29] MEDS: LEVETIRACETAM SOL (5 ML) 100 MG/ML UDC GT SCH ×2 (08:46→21:14)
[2016-10-29] MEDS: PROSOURCE / PROSTAT (PYXIS) 30 ML UDC GT SCH (08:46)
[2016-10-29] MEDS: ACETAMINOPHEN 650 MG/20.3 ML UDC GT SCH (08:46)
[2016-10-29] MEDS: DOCUSATE SODIUM LIQ 100 MG/10 ML UDC GT SCH ×2 (08:46→17:11)
[2016-10-29] MEDS: HYDROGEL DRESSING 90 GM TUBE TP SCH (08:47)
[2016-10-29] MEDS: VIT B CMPLX 3/FA/VIT C/BIOTIN 1 TAB TABLET GT SCH (08:47)
[2016-10-29] MEDS: ASCORBIC ACID SYRUP 500 MG/5 ML UDC GT SCH (08:47)
[2016-10-29] MEDS: ZINC SULFATE 220 MG CAPSULE GT SCH (08:47)
[2016-10-29] MEDS: BACITRACIN/POLYMYXIN B 15 GM TUBE TP SCH ×2 (08:47→17:11)
[2016-10-29] MEDS: Z GUARD REMEDY 2 OZ OINT TP SCH (08:47)
[2016-10-29 12:00] VITALS: BP 90/40
[2016-10-29] MEDS: CALCITRIOL ORAL SOLUTION 1 MCG/ML GT SCH (12:15)
[2016-10-29 16:00] VITALS: BP 90/45
[2016-10-29 20:00] VITALS: BP_SYST 91; BP_SYST 92; BP_DIAS 38; BP_DIAS 41
--- NOTE | 2016-10-29 20:10 | NUR ---
RECEIVED TELE PT WITH AFIB CONTROLLED NO EPISODE OF DISTRESS CONT ON VENT SETTING ORDERED, KEPT CLEAN AND DRY WELL REPOSITIONED.
[2016-10-30] VITALS: BP 91/41
[2016-10-30] MEDS: METOCLOPRAMIDE HCL 10 MG/10 ML UDC GT SCH ×5 (00:22→23:54)
[2016-10-30] MEDS: BLOOD SUGAR DIAGNOSTIC 1 EACH STRIP IN SCH ×5 (00:22→23:42)
[2016-10-30] MEDS: ALBUTEROL FS 2.5 MG/0.5 ML VIAL.NEB NEB SCH ×4 (01:31→19:14)
[2016-10-30] MEDS: IPRATROPIUM NEB FS 0.5 MG/2.5 ML AMPUL.NEB IH SCH ×4 (01:31→19:14)
[2016-10-30] MEDS: ACETYLCYSTEINE 10% SOLN 400 MG/4 ML VIAL NEB SCH ×4 (01:31→22:59)
[2016-10-30 04:00] VITALS: BP 93/34
[2016-10-30] MEDS: SILDENAFIL CITRATE 20 MG TABLET GT SCH ×3 (04:53→20:15)
[2016-10-30] MEDS: MIDODRINE HCL (5MG) 5 MG TABLET GT SCH ×3 (04:53→20:16)
[2016-10-30] MEDS: PANTOPRAZOLE 40 MG/PACK PACK GT SCH (05:37)
--- NOTE | 2016-10-30 06:33 | NUR ---
AUTOMATIC VULCANIZING LEAD OPERATOR CLOSING NOTES PT AWAKE, WITH AFIB BBB HR 80-85 CON ON VENT SETTING ORDERED KEPT CLEAN AND DRY WELL REPOSITIONED, AM CARE PROVIDED WELL TOLERATED DENIES ANY PAIN.
--- NOTE | 2016-10-30 07:54 | NUR ---
RT PATIENT REC'D TRACHED ON [facility] VENT WITH ORDERS SET PER MD TOLERATED WELL. VENT ALARMS CHECKED + AUDIBLE. VENT PLUGGED INTO RED OUTLET. CUFF PRESSURE CHECKED WEB SIZER. TRACH SECURE AND IN PROPER POSITION VIA FOAM TRACH TIE. B/S DIM COARSE. SUCTIONED WITH MOD AMT PALE SEMITHICK SECRETIONS. PALE APPEARS COMFORTABLE AND IN NO RESP DISTRESS. AMBU BAG AT [facility]. CONTINUE CURRENT PLAN OF RESP CARE. Addendum: 10/30/16 at 0852 by GRISEL ADHIKARI RT Amended: Links added.
[2016-10-30 08:00] VITALS: BP 90/36
[2016-10-30] MEDS: VIT B CMPLX 3/FA/VIT C/BIOTIN 1 TAB TABLET GT SCH (08:37)
[2016-10-30] MEDS: PROSOURCE / PROSTAT (PYXIS) 30 ML UDC GT SCH (08:37)
[2016-10-30] MEDS: ACETAMINOPHEN 650 MG/20.3 ML UDC GT SCH (08:37)
[2016-10-30] MEDS: LEVETIRACETAM SOL (5 ML) 100 MG/ML UDC GT SCH ×2 (08:37→20:15)
[2016-10-30] MEDS: CALCITRIOL ORAL SOLUTION 1 MCG/ML GT SCH (08:37)
[2016-10-30] MEDS: ASCORBIC ACID SYRUP 500 MG/5 ML UDC GT SCH (08:37)
[2016-10-30] MEDS: ZINC SULFATE 220 MG CAPSULE GT SCH (08:37)
[2016-10-30] MEDS: DOCUSATE SODIUM LIQ 100 MG/10 ML UDC GT SCH ×2 (08:37→17:59)
[2016-10-30] MEDS: HYDROGEL DRESSING 90 GM TUBE TP SCH (08:38)
[2016-10-30] MEDS: Z GUARD REMEDY 2 OZ OINT TP SCH (08:39)
[2016-10-30] MEDS: BACITRACIN/POLYMYXIN B 15 GM TUBE TP SCH ×2 (08:39→17:59)
[2016-10-30 12:00] VITALS: BP 89/23
--- NOTE | 2016-10-30 12:30 | NUR ---
dr. Dickey made aware of bp 89/23, said continue to monitor, give bolus if bp lowers on re-check.
[2016-10-30 16:00] VITALS: BP 92/35
--- NOTE | 2016-10-30 19:56 | NUR ---
END OF SHIFT NO NOTABLE COMPLICATIONS OR CHANGE OF CONDITION THIS SHIFT.
[2016-10-30 20:00] VITALS: BP_SYST 93; BP_DIAS 32; BP_DIAS 38
--- NOTE | 2016-10-30 20:00 | NUR ---
DRYWALLER NOTES PT RECEIVED WITH AFIB SR 66, RT IN RM BREATHING TX GIVEN NO EPISODE OF DISTRESS SUCTION PROVIDED`, PT APPEARS CLEAN AND DRY WELL REPOSITIONED DENIES ANY PAIN AT THIS TIME.
[2016-10-31] VITALS (8 sets, daily range): BP systolic 87–110; BP diastolic 31–49
[2016-10-31] MEDS: ALBUTEROL FS 2.5 MG/0.5 ML VIAL.NEB NEB SCH ×4 (00:54→19:01)
[2016-10-31] MEDS: IPRATROPIUM NEB FS 0.5 MG/2.5 ML AMPUL.NEB IH SCH ×4 (00:54→19:01)
[2016-10-31] MEDS: SILDENAFIL CITRATE 20 MG TABLET GT SCH ×3 (05:21→21:00)
[2016-10-31] MEDS: METOCLOPRAMIDE HCL 10 MG/10 ML UDC GT SCH ×3 (05:21→16:45)
[2016-10-31] MEDS: MIDODRINE HCL (5MG) 5 MG TABLET GT SCH ×3 (05:22→21:20)
[2016-10-31] MEDS: BLOOD SUGAR DIAGNOSTIC 1 EACH STRIP IN SCH ×4 (05:25→23:29)
[2016-10-31] MEDS: PANTOPRAZOLE 40 MG/PACK PACK GT SCH (05:30)
[2016-10-31] MEDS: INSULIN REGULAR, HUMAN 100 UNIT/ML 3 ML VIAL SQ PRN ×2 (05:30→17:31)
[2016-10-31] MEDS: RENAL NOVASOURCE 1,000 ML BOTTLE GT PRN (05:40)
--- NOTE | 2016-10-31 06:38 | NUR ---
SUPERVISOR ASSEMBLY DEPARTMENT CLOSING NOTES PT STILL WITH AFIB HR 70-80, NO EPISODE OF DISTRESS NOTED AM CARE PROVIDED KEPT CLEAN AND DRY , WELL REPOSITIONED. NO CHANGES.
[2016-10-31 07:18] LABS: CALCIUM, SERUM 9.2 mg/dL (8.5-10.1); CARBON DIOXIDE 27 mmol/L (21-32); CHLORIDE 97 mmol/L (98-107); CREATININE 2.6 mg/dL (0.6-1.3); GLUCOSE 143 mg/dL (74-106); MAGNESIUM 2.1 mg/dL (1.8-2.4); PHOSPHORUS 2.9 mg/dL (2.5-4.9); POTASSIUM 3.7 mmol/L (3.5-5.1); SODIUM SERUM 136 mmol/L (136-145); UREA NITROGEN, BLOOD 71 mg/dL (7-18)
[2016-10-31 07:52] LABS: BASOPHILS % (AUTO) 0.4 % (0.0-2.0); EOSINOPHILS # (AUTO) 0.3 /CMM (0.0-0.7); EOSINOPHILS % (AUTO) 2.4 % (0.0-6.0); HEMATOCRIT 22 % (33-45); HEMOGLOBIN 7.4 g/dL (11.5-14.8); LYMPHOCYTES # (AUTO) 1.6 /CMM (0.8-4.8); LYMPHOCYTES % (AUTO) 13.6 % (20.0-44.0); MEAN CORPUSCULAR HEMOGLOBIN 32 PG (26.0-33.0); MEAN CORPUSCULAR HGB CONC 34 g/dl (31.0-36.0); MEAN CORPUSCULAR VOLUME 93 fL (82-100); MONOCYTES # (AUTO) 0.9 /CMM (0.1-1.30); MONOCYTES % (AUTO) 7.3 % (2.0-12.0); NEUTROPHILS # (AUTO) 9.2 /CMM (1.8-8.9); NEUTROPHILS % (AUTO) 76.3 % (43.0-81.0); PLATELET COUNT (AUTO) 202 /CMM (150-450); RDW COEFFICIENT OF VARIATION 15.8 (11.5-15.0); RED BLOOD CELL COUNT(AUTO) 2.34 MIL/uL (4.0-5.2)
[2016-10-31] MEDS: ACETYLCYSTEINE 10% SOLN 400 MG/4 ML VIAL NEB SCH ×2 (08:12→15:11)
[2016-10-31] MEDS: LEVETIRACETAM SOL (5 ML) 100 MG/ML UDC GT SCH ×2 (09:07→21:19)
[2016-10-31] MEDS: ASCORBIC ACID SYRUP 500 MG/5 ML UDC GT SCH (09:07)
[2016-10-31] MEDS: DOCUSATE SODIUM LIQ 100 MG/10 ML UDC GT SCH ×2 (09:07→15:55)
[2016-10-31] MEDS: VIT B CMPLX 3/FA/VIT C/BIOTIN 1 TAB TABLET GT SCH (09:07)
[2016-10-31] MEDS: ACETAMINOPHEN 650 MG/20.3 ML UDC GT SCH (09:07)
[2016-10-31] MEDS: ZINC SULFATE 220 MG CAPSULE GT SCH (09:07)
[2016-10-31] MEDS: HYDROGEL DRESSING 90 GM TUBE TP SCH (09:08)
[2016-10-31] MEDS: BACITRACIN/POLYMYXIN B 15 GM TUBE TP SCH ×2 (09:08→15:56)
[2016-10-31] MEDS: Z GUARD REMEDY 2 OZ OINT TP SCH (09:09)
[2016-10-31] MEDS: PROSOURCE / PROSTAT (PYXIS) 30 ML UDC GT SCH (09:11)
[2016-10-31] MEDS: CALCITRIOL ORAL SOLUTION 1 MCG/ML GT SCH (09:11)
[2016-10-31] MEDS ORDERED: SECONDARY IV SET 1 EA INFUS.SET MC ONE (10:00)
[2016-10-31] MEDS: ALBUMIN 25% 25 GM in PREMIX 1 EA IV PRN (12:14)
--- NOTE | 2016-10-31 12:47 | NUR ---
RN WHITNEY DIALYSIS DONE TOLERATED, ALBUMIN GIVEN DURING DIALYSIS DRESSING CHANGED BY GRINDER OPERATOR EXTERNAL TOOL
[2016-10-31] MEDS ORDERED: BLOOD IV SET 1 EA INFUS.SET MC ONE (14:21)
[2016-10-31] MEDS ORDERED: IV NS 0.9% 250 ML IV ONE (14:21)
[2016-10-31] MEDS ORDERED: EPOETIN ALFA (10,000 UNIT) 10,000 UNIT/ML VIAL SQ ONE (15:00)
--- NOTE | 2016-10-31 19:30 | NUR ---
RN INITIAL NOTES RECEIVED PATIENT IN BED, AWAKE, ALERT AND ORIENTED X1-2, ECUADOREAN SPEAKING. TRACH MIDLINE AND INTACT, ON MECHANICAL VENTILATOR AT PRESCRIBED SETTINGS, TOLERATING WELL, FREE FROM ANY S/S OF RESPIRATORY DISTRESS, AIRWAY SUCTIONED FOR CLEARANCE. ON TELEMETRY MONITORING, REVEALING SR, HR = 77 AT THIS TIME. GT/JT PATENT AND INTACT, GT CONNECTED TO DRAINAGE BAG BY GRAVITY, JT FOR FEEDING, NO JT RESIDUALS AT THIS TIME. HD CATH DRESSING CLEAN AND DRY. IV SITE PATENT AND INTACT, FREE FROM ANY S/S OF INFILTRATION OR PHLEBITIS. PATIENT'S SON AT BEDSIDE, PLAN OF CARE DISCUSSED IN DETAIL. CALL LIGHT LEFT WITHIN EASY REACH, BED IN LOWEST AND LOCKED POSITION, HOB KEPT ELEVATED FOR ASPIRATION PRECAUTIONS. WILL CONTINUE TO CLOSELY MONITOR
[2016-10-31] MEDS: ACETAMINOPHEN 650 MG/20.3 ML UDC GT PRN (21:21)
--- NOTE | 2016-10-31 23:12 | NUR ---
RN GT CLOGGED, UNABLE TO UNCLOGGED, SPOKE TO MD BERNAL, AWARE, CURRENT GT FEEDING ON HOLD, CURRENT BS LEVEL 103, MD WITH NEW ORDER OF D10 @ 20 ML/HR.
[2016-10-31] MEDS ORDERED: Sodium Chloride 154 MEQ in IV 10% DEXTROSE 1,000 ML IV PRN (23:30)
[2016-11-01] VITALS (9 sets, daily range): BP systolic 99–132; BP diastolic 26–85
[2016-11-01] MEDS ORDERED: IV 10% DEXTROSE 1,000 ML IV ONE (00:35)
[2016-11-01] MEDS ORDERED: IV SET PRIMARY PUMP SET 1 EA INFUS.SET MC ONE ×2 (00:53→23:04)
[2016-11-01] MEDS: ACETYLCYSTEINE 10% SOLN 400 MG/4 ML VIAL NEB SCH ×3 (00:57→15:09)
[2016-11-01] MEDS: IPRATROPIUM NEB FS 0.5 MG/2.5 ML AMPUL.NEB IH SCH ×4 (00:58→19:46)
[2016-11-01] MEDS: ALBUTEROL FS 2.5 MG/0.5 ML VIAL.NEB NEB SCH ×4 (00:58→19:46)
[2016-11-01] MEDS: METOCLOPRAMIDE HCL 10 MG/10 ML UDC GT SCH ×5 (01:00→23:17)
[2016-11-01] MEDS: IV 10% DEXTROSE 1,000 ML IV PRN (01:04)
--- NOTE | 2016-11-01 01:20 | NUR ---
RN NOTES WHEN TRYING TO SCAN D10 BAG, COMPUTER SHOWS "UNKNOWN NDC NUMBER." MANUALLY SCANNED. WILL CONTINUE TO CLOSELY MONITOR THE PATIENT
[2016-11-01] MEDS: MIDODRINE HCL (5MG) 5 MG TABLET GT SCH ×3 (05:00→20:57)
[2016-11-01] MEDS: SILDENAFIL CITRATE 20 MG TABLET GT SCH ×3 (05:00→20:58)
[2016-11-01] MEDS: PANTOPRAZOLE 40 MG/PACK PACK GT SCH (05:53)
[2016-11-01] MEDS: BLOOD SUGAR DIAGNOSTIC 1 EACH STRIP IN SCH ×4 (06:35→23:17)
--- NOTE | 2016-11-01 07:00 | NUR ---
RN CLOSING NOTES PATIENT RESTING IN BED, APPEARS COMFORTABLE, DENIES PAIN. CONTINUE ON D10 @ 20 CC/HR, LATEST BLOOD SUGAR = 119. JEJUNUM TUBE REMAINS CLOGGED. PATIENT ENDORSED TO NURSE CORDOVA FOR CONNOR
[2016-11-01 07:30] LABS: BASOPHILS % (AUTO) 0.4 % (0.0-2.0); EOSINOPHILS # (AUTO) 0.2 /CMM (0.0-0.7); EOSINOPHILS % (AUTO) 1.6 % (0.0-6.0); HEMATOCRIT 23 % (33-45); HEMOGLOBIN 7.7 g/dL (11.5-14.8); LYMPHOCYTES # (AUTO) 1.5 /CMM (0.8-4.8); LYMPHOCYTES % (AUTO) 14.1 % (20.0-44.0); MEAN CORPUSCULAR HEMOGLOBIN 31 PG (26.0-33.0); MEAN CORPUSCULAR HGB CONC 34 g/dl (31.0-36.0); MEAN CORPUSCULAR VOLUME 93 fL (82-100); MONOCYTES # (AUTO) 0.8 /CMM (0.1-1.30); MONOCYTES % (AUTO) 7.8 % (2.0-12.0); NEUTROPHILS # (AUTO) 8.2 /CMM (1.8-8.9); NEUTROPHILS % (AUTO) 76.1 % (43.0-81.0); PLATELET COUNT (AUTO) 187 /CMM (150-450); RDW COEFFICIENT OF VARIATION 17.1 (11.5-15.0); RED BLOOD CELL COUNT(AUTO) 2.46 MIL/uL (4.0-5.2); WHITE BLOOD COUNT (AUTO) 10.8 K/uL (4.3-11.0)
[2016-11-01 07:37] LABS: CALCIUM, SERUM 9.4 mg/dL (8.5-10.1); CARBON DIOXIDE 30 mmol/L (21-32); CHLORIDE 100 mmol/L (98-107); CREATININE 2.1 mg/dL (0.6-1.3); GLUCOSE 117 mg/dL (74-106); MAGNESIUM 2.1 mg/dL (1.8-2.4); PHOSPHORUS 2.9 mg/dL (2.5-4.9); POTASSIUM 3.3 mmol/L (3.5-5.1); SODIUM SERUM 140 mmol/L (136-145); UREA NITROGEN, BLOOD 51 mg/dL (7-18)
[2016-11-01] MEDS: Z GUARD REMEDY 2 OZ OINT TP SCH (08:30)
[2016-11-01] MEDS: HYDROGEL DRESSING 90 GM TUBE TP SCH (08:31)
[2016-11-01] MEDS: ACETAMINOPHEN 650 MG/20.3 ML UDC GT SCH (08:40)
[2016-11-01] MEDS: DOCUSATE SODIUM LIQ 100 MG/10 ML UDC GT SCH ×2 (08:40→17:00)
[2016-11-01] MEDS: PROSOURCE / PROSTAT (PYXIS) 30 ML UDC GT SCH (08:40)
[2016-11-01] MEDS: ASCORBIC ACID SYRUP 500 MG/5 ML UDC GT SCH (08:40)
[2016-11-01] MEDS: VIT B CMPLX 3/FA/VIT C/BIOTIN 1 TAB TABLET GT SCH (08:40)
[2016-11-01] MEDS: CALCITRIOL ORAL SOLUTION 1 MCG/ML GT SCH (08:40)
[2016-11-01] MEDS: LEVETIRACETAM SOL (5 ML) 100 MG/ML UDC GT SCH (08:40)
[2016-11-01] MEDS: ZINC SULFATE 220 MG CAPSULE GT SCH (08:41)
[2016-11-01] MEDS: BACITRACIN/POLYMYXIN B 15 GM TUBE TP SCH ×2 (08:41→17:03)
--- NOTE | 2016-11-01 08:42 | NUR ---
CHANGE MANAGEMENT CONSULTANT UNABLE TO ADMINISTER GT/ JT MEDS SINCE JT IS CLOGGED. UNABLE TO DECLOG AT THIS TIME. WILL INFORM PRIMARY MD.
[2016-11-01] MEDS ORDERED: BLOOD IV SET 1 EA INFUS.SET MC ONE (13:42)
--- NOTE | 2016-11-01 19:30 | NUR ---
RN INITIAL NOTES RECEIVED PATIENT IN BED, AWAKE, ALERT AND ORIENTED X1-2, POLISH SPEAKING. TRACH MIDLINE AND INTACT, ON MECHANICAL VENTILATOR AT PRESCRIBED SETTINGS, TOLERATING WELL, FREE FROM ANY S/S OF RESPIRATORY DISTRESS, AIRWAY SUCTIONED FOR CLEARANCE. ON TELEMETRY MONITORING, REVEALING SR, HR = 74 AT THIS TIME. GT CONNECTED TO DRAINAGE BAG BY GRAVITY WITH BILIOUS OUTPUT, JT CLAMPED AT THIS TIME, CLOGGED. UNABLE TO DE-CLOG MD MARIE AWARE. JT RESIDUALS AT THIS TIME. HD CATH DRESSING CLEAN AND DRY. IV SITES PATENT AND INTACT, FREE FROM ANY S/S OF INFILTRATION OR PHLEBITIS. PATIENT'S DAUGHTER AT BEDSIDE, PLAN OF CARE DISCUSSED IN DETAIL. CALL LIGHT LEFT WITHIN EASY REACH, BED IN LOWEST AND LOCKED POSITION, HOB KEPT ELEVATED FOR ASPIRATION PRECAUTIONS. WILL CONTINUE TO CLOSELY MONITOR
--- NOTE | 2016-11-01 19:46 | NUR ---
[facility] WITH NOTED SETTINGS. SUCTIONED SMALL AMOUNT OF WHITE THIN SECRETIONS. VENT ALARMED AND WORKING,VENT PLUGGED INTO RED OUTLET. AMBU BAG AT [facility], BILATERAL BS NOTED. NO RESPIRATORY DISTRESS NOTED. WILL CONTINUE TO MONITOR.
--- NOTE | 2016-11-01 22:00 | NUR ---
RN NOTES PATIENT'S JT REMAINS CLOGGED UNABLE TO GIVE MEDS VIA JT. CALLED MD, SPOKE TO DR GEORGES ARMAS, UPDATED REGARDING CURRENT JT SITUATION. MD WITH ORDER TO CHANGE KEPPRA 500MG VIA JT TO IV, WITH PHARMACY TO VERIFY DOSE. SPOKE TO PHARMACIST WENDI, DOSE WILL BE KEPPRA 500MG IV PIGGYBACK Q12H. ORDER READ BACK FOR CLARIFICATION. WILL ADMINISTER THE MEDICATION ORDERED AND CONTINUE TO CLOSELY MONITOR THE PATIENT
[2016-11-01] MEDS ORDERED: IV NS 0.9% 100 ML IV ONE (22:29)
[2016-11-01] MEDS ORDERED: LEVETIRACETAM (500MG) 500 MG/5 ML VIAL IV ONE (22:30)
[2016-11-01] MEDS ORDERED: LEVETIRACETAM (500MG) 500 MG in IV NS 0.9% 100 ML IV SCH (22:30)
[2016-11-01] MEDS ORDERED: SECONDARY IV SET 1 EA INFUS.SET MC ONE (23:04)
[2016-11-02] VITALS: BP 138/25
[2016-11-02] MEDS: IV 10% DEXTROSE 1,000 ML IV PRN
[2016-11-02] MEDS: ACETYLCYSTEINE 10% SOLN 400 MG/4 ML VIAL NEB SCH ×3 (00:27→15:40)
[2016-11-02] MEDS: ALBUTEROL FS 2.5 MG/0.5 ML VIAL.NEB NEB SCH ×4 (00:31→19:35)
[2016-11-02] MEDS: IPRATROPIUM NEB FS 0.5 MG/2.5 ML AMPUL.NEB IH SCH ×4 (00:31→19:35)
[2016-11-02 04:00] VITALS: BP 151/52
[2016-11-02] MEDS: MIDODRINE HCL (5MG) 5 MG TABLET GT SCH ×3 (05:00→21:21)
[2016-11-02] MEDS: SILDENAFIL CITRATE 20 MG TABLET GT SCH ×3 (05:00→21:21)
[2016-11-02] MEDS: PANTOPRAZOLE 40 MG/PACK PACK GT SCH (06:30)
[2016-11-02] MEDS: METOCLOPRAMIDE HCL 10 MG/10 ML UDC GT SCH ×3 (06:31→17:14)
[2016-11-02] MEDS: BLOOD SUGAR DIAGNOSTIC 1 EACH STRIP IN SCH ×3 (06:31→17:15)
--- NOTE | 2016-11-02 06:54 | NUR ---
RN CLOSING NOTES PATIENT RESTING COMFORTABLY IN BED, DENIES PAIN. WILL ENDORSE THE PATIENT TO THE AM SHIFT NURSE FOR CONNOR
[2016-11-02 07:06] LABS: BASOPHILS % (AUTO) 0.3 % (0.0-2.0); EOSINOPHILS # (AUTO) 0.2 /CMM (0.0-0.7); EOSINOPHILS % (AUTO) 1.9 % (0.0-6.0); HEMATOCRIT 26 % (33-45); HEMOGLOBIN 8.8 g/dL (11.5-14.8); LYMPHOCYTES # (AUTO) 1.2 /CMM (0.8-4.8); LYMPHOCYTES % (AUTO) 13.8 % (20.0-44.0); MEAN CORPUSCULAR HEMOGLOBIN 31 PG (26.0-33.0); MEAN CORPUSCULAR HGB CONC 34 g/dl (31.0-36.0); MEAN CORPUSCULAR VOLUME 92 fL (82-100); MONOCYTES # (AUTO) 0.8 /CMM (0.1-1.30); MONOCYTES % (AUTO) 9.2 % (2.0-12.0); NEUTROPHILS # (AUTO) 6.3 /CMM (1.8-8.9); NEUTROPHILS % (AUTO) 74.8 % (43.0-81.0); PLATELET COUNT (AUTO) 183 /CMM (150-450); RDW COEFFICIENT OF VARIATION 16.7 (11.5-15.0); RED BLOOD CELL COUNT(AUTO) 2.81 MIL/uL (4.0-5.2); WHITE BLOOD COUNT (AUTO) 8.5 K/uL (4.3-11.0)
--- NOTE | 2016-11-02 07:40 | NUR ---
RN INITIAL NOTES RECEIVED PATIENT IN BED, AWAKE, ALERT AND ORIENTED TO PERSON , ISRAELI SPEAKING. TRACH MIDLINE AND INTACT, ON MECHANICAL VENTILATOR AT PRESCRIBED SETTINGS, TOLERATING WELL, FREE FROM ANY S/S OF RESPIRATORY DISTRESS. PT ON TELEMETRY MONITORING SR, HR = 84 AT THIS TIME. GT/JT CLEAN AND INTACT, GT CONNECTED TO DRAINAGE BAG BY GRAVITY , JT FOR FEEDING CLAMPED AND CLOGGED, NO JT RESIDUALS AT THIS TIME. HD CATH DRESSING CLEAN AND DRY. IV SITE PATENT AND INTACT, FREE FROM ANY S/S OF INFILTRATION OR PHLEBITIS. CALL LIGHT LEFT WITHIN EASY REACH, BED IN LOWEST AND LOCKED POSITION, HOB KEPT ELEVATED FOR ASPIRATION PRECAUTIONS. WILL CONTINUE TO CLOSELY MONITOR THROUGHOUT THE DAY
[2016-11-02 08:00] VITALS: BP 86/44
[2016-11-02 08:08] LABS: CALCIUM, SERUM 9.2 mg/dL (8.5-10.1); CARBON DIOXIDE 30 mmol/L (21-32); CHLORIDE 99 mmol/L (98-107); CREATININE 1.9 mg/dL (0.6-1.3); GLUCOSE 104 mg/dL (74-106); POTASSIUM 3.4 mmol/L (3.5-5.1); SODIUM SERUM 137 mmol/L (136-145); UREA NITROGEN, BLOOD 37 mg/dL (7-18)
[2016-11-02] MEDS ORDERED: LEVETIRACETAM (500MG) 500 MG in IV NS 0.9% 100 ML IV SCH (08:29)
[2016-11-02 08:40] LABS: PHOSPHORUS 2.6 mg/dL (2.5-4.9)
[2016-11-02] MEDS: ZINC SULFATE 220 MG CAPSULE GT SCH (09:00)
[2016-11-02] MEDS: ASCORBIC ACID SYRUP 500 MG/5 ML UDC GT SCH (09:00)
[2016-11-02] MEDS: CALCITRIOL ORAL SOLUTION 1 MCG/ML GT SCH (09:00)
[2016-11-02] MEDS: ACETAMINOPHEN 650 MG/20.3 ML UDC GT SCH (09:00)
[2016-11-02] MEDS: DOCUSATE SODIUM LIQ 100 MG/10 ML UDC GT SCH ×2 (09:00→17:00)
[2016-11-02] MEDS: VIT B CMPLX 3/FA/VIT C/BIOTIN 1 TAB TABLET GT SCH (09:00)
[2016-11-02] MEDS: PROSOURCE / PROSTAT (PYXIS) 30 ML UDC GT SCH (09:00)
[2016-11-02] MEDS: HYDROGEL DRESSING 90 GM TUBE TP SCH (09:28)
[2016-11-02] MEDS: Z GUARD REMEDY 2 OZ OINT TP SCH (09:30)
--- NOTE | 2016-11-02 09:51 | NUR ---
INSTRUCTOR DANCING NOTE 1 LITER REMOVED PATIENT REMAINS STABLES NO ISSUES OR CONCERNS NOTED B/P 86/38
[2016-11-02] MEDS: LEVETIRACETAM (500MG) 500 MG in IV NS 0.9% 100 ML IV SCH ×2 (09:56→21:20)
[2016-11-02 12:00] VITALS: BP 86/34
--- NOTE | 2016-11-02 12:20 | NUR ---
television schedule coordinator note nursing staff unable to administer patient medications via gt due to gt/pt clogging. unable to clear clog. nursing staff will inform pcp for today about the issue . noted that the provider has been previously notified in regards to this issue
--- NOTE | 2016-11-02 13:38 | NUR ---
FAMILY LAW ATTORNEY NOTE SPOKE WITH THE [PATIENT SON IN REGARDS TO THE GT/JT. PT SON RIOS HAS CONCERNS IN REGARDS TO THE PLAN OF CARE FOR HIS MOM FAR NUTRITION. NURSING STAFF CALLED TO JON OLSON IN REGARD OF PLAN OF CARE AWAITING RETURN PHONE CALL. NURSING STAFF WILL CONTACT THE SON AFTER SPEAKING WITH THE PROVIDER
--- NOTE | 2016-11-02 15:27 | NUR ---
RN NOTES CALLED DR DEE, TO REPORT PT J-TUBE IS CLOGGED. DR DUNHAM AWARE OF PT CURRENT SITUTATION. LEFT A VOICE MESSAGE TO CHIO, AWAITING FOR MD'S CALL BACK.
[2016-11-02 16:00] VITALS: BP_SYST 90; BP_DIAS 40; BP_DIAS 46
--- NOTE | 2016-11-02 16:15 | NUR ---
LITHOGRAPHIC PROOFER APPRENTICE NOTE RN SPOKE WITH DR. DEE TO NOTIFY HIM ABOUT THE PATIENTS JT/GT CLOOGING . MD ADVISED NURSING STAFF TO START THE PATIENTS TUBE FEEDING VIA THE G-TUBE PENDING EGD AND JT/GT REPLACEMENT CLAMP JT . NURSING STAFF WILL FOLLOW MD ORDERS.
--- NOTE | 2016-11-02 18:11 | NUR ---
RN CLOSING NOTES PATIENT RESTING IN BED, APPEARS COMFORTABLE, DENIES PAIN. CONTINUE ON D10 @ 20 CC/HR, LATEST BLOOD SUGAR = 107. JEJUNUM TUBE REMAINS CLOGGED. HOWEVER NURSING STAFF ORDERED TO START TUBE FEEDING VIA G-TUBE. NURSING STAFF WILL ENDORSED TO PM NURSE FOR CONNOR
[2016-11-02] MEDS: RENAL NOVASOURCE 1,000 ML BOTTLE GT PRN (18:38)
--- NOTE | 2016-11-02 19:30 | NUR ---
THERAPIST PHYSICAL INITIAL NOTE RECEIVED REPORT FROM ADELAIDE VIERA. PT IN BED, CHRONIC VENT TRACH, BED BOUND. SUCTIONED FOR COMFORT. ABLE TO MOUTH WORDS, BULGARIAN SPEAKING. LUNG SOUNDS RHONCHI. BOWEL SOUNDS HYPOACTIVE, ABDOMEN DISTENDED. GT FLUSHING, JT UNABLE TO FLUSH. PER DR DEE, RESUME FEEDING TO GT SITE. FEEDING GOAL IS 30CC, CURRENTLY RECEIVING 10CC. NEED CONSENT FOR EGD WITH PEG INSERTION. NO FAMILY AT BEDSIDE AT THIS TIME. RESIDUAL CHECKED VIA GT, NO RESIDUAL NOTED. IV PATENT AND INTACT. PULSES PRESENT. BED IN LOW LOCKED POSITION. CALL LIGHT WITHIN REACH.
--- NOTE | 2016-11-02 19:36 | NUR ---
[facility] V[facility] WITH NOTED SETTINGS. SUCTIONED SMALL AMOUNT OF YELLOWISH WHITE SEMI THICK SECRETIONS, BILATERAL BS NOTED. VENT PLUGGED INTO RED OUTLET, VENT ALARMED AND WORKING. AMBU BAG AT BEDSIDE. NO RESPIRATORY DISTRESS AT THIS TIME. WILL CONTINUE TO MONITOR.
[2016-11-02 20:00] VITALS: BP 104/55
--- NOTE | 2016-11-02 22:00 | NUR ---
CORRECTIONAL CASE MANAGER RESIDUAL CHECKED ON GT SITE, 30CC NOTED. FEEDING HELD. WILL CONTACT DR DEE. SON AT BEDSIDE AT THIS TIME.
--- NOTE | 2016-11-02 22:10 | NUR ---
TYPE DISK QUALITY CONTROL SUPERVISOR DR DEE CONTACTED. AWARE OF ISSUE. INSTRUCTED ON THE IMPORTANCE OF FLUSHING A NEW GT/JT EVERY 4HRS FOR PATENCY. DR DEE WAS UNAWARE OF THE FACT THAT THE JT HAD CLOGGED PRIOR THAN TODAY'S NOTIFICATION BY DAY NURSE. REQUESTED A CONSENT FOR EGD WITH PEG INSERTION. SON AT BEDSIDE. DR MORA STATED TO RESUME FEEDING, IF PT DOES NOT TOLERATE FEEDING, HOLD. WILL CONTINUE TO MONITOR.
[2016-11-03] VITALS: BP 105/50
--- NOTE | 2016-11-03 | NUR ---
GREEK PROFESSOR CHECKED RESIDUAL ON GT, 50CC RESIDUAL NOTED GREEN COLOR. FEEDING HELD.
[2016-11-03] MEDS: METOCLOPRAMIDE HCL 10 MG/10 ML UDC GT SCH ×4 (00:09→17:07)
[2016-11-03] MEDS: BLOOD SUGAR DIAGNOSTIC 1 EACH STRIP IN SCH ×4 (00:09→17:07)
[2016-11-03] MEDS: ACETYLCYSTEINE 10% SOLN 400 MG/4 ML VIAL NEB SCH ×3 (00:26→15:23)
[2016-11-03] MEDS: IPRATROPIUM NEB FS 0.5 MG/2.5 ML AMPUL.NEB IH SCH ×4 (00:31→20:16)
[2016-11-03] MEDS: ALBUTEROL FS 2.5 MG/0.5 ML VIAL.NEB NEB SCH ×4 (00:31→20:16)
[2016-11-03 04:00] VITALS: BP 102/49
--- NOTE | 2016-11-03 04:00 | NUR ---
PURCHASING ADMINISTRATIVE ASSISTANT RESIDUAL CHECKED ON GT, 70CC OF RESIDUAL NOTED, GREEN COLOR. WILL CONTINUE TO HOLD FEEDING. D10 AT 20CC/HR RUNNING. WILL CONTINUE TO MONITOR.
[2016-11-03] MEDS ORDERED: IV SET PRIMARY PUMP SET 1 EA INFUS.SET MC ONE (05:04)
[2016-11-03] MEDS: IV 10% DEXTROSE 1,000 ML IV PRN (05:14)
[2016-11-03] MEDS: SILDENAFIL CITRATE 20 MG TABLET GT SCH ×3 (05:14→21:30)
[2016-11-03] MEDS: MIDODRINE HCL (5MG) 5 MG TABLET GT SCH ×3 (05:15→21:30)
[2016-11-03] MEDS: PANTOPRAZOLE 40 MG/PACK PACK GT SCH (05:29)
--- NOTE | 2016-11-03 07:15 | NUR ---
RN INITIAL NOTES: Rec'd pt asleep on bed, not in any distress, A/O x2. Pt on mech vent via trach, no SOB noted. On telemonitor, Afib. Has PEG in place, clamped, no residual noted on GT and JT upon checking but unable to flush fluids on JT. Has 2 IV lines: R hand G20 PL, patent & intact w/ D10 1L x 20 cc/hr infusing well & L hand G20, SL, flushed patent & intact, both no signs of infection/ infiltration noted. Call light placed w/in reach. Bed kept low & in locked pos. Will continue to monitor.
[2016-11-03 08:00] VITALS: BP 123/69
[2016-11-03] MEDS: DOCUSATE SODIUM LIQ 100 MG/10 ML UDC GT SCH ×2 (08:39→17:06)
[2016-11-03] MEDS: ACETAMINOPHEN 650 MG/20.3 ML UDC GT SCH (08:39)
[2016-11-03] MEDS: VIT B CMPLX 3/FA/VIT C/BIOTIN 1 TAB TABLET GT SCH (08:40)
[2016-11-03] MEDS: ZINC SULFATE 220 MG CAPSULE GT SCH (08:40)
[2016-11-03] MEDS: Z GUARD REMEDY 2 OZ OINT TP SCH (08:40)
[2016-11-03] MEDS: HYDROGEL DRESSING 90 GM TUBE TP SCH (08:40)
[2016-11-03] MEDS: CALCITRIOL ORAL SOLUTION 1 MCG/ML GT SCH (08:40)
[2016-11-03] MEDS: ASCORBIC ACID SYRUP 500 MG/5 ML UDC GT SCH (08:40)
[2016-11-03] MEDS: PROSOURCE / PROSTAT (PYXIS) 30 ML UDC GT SCH (08:41)
[2016-11-03] MEDS: LEVETIRACETAM (500MG) 500 MG in IV NS 0.9% 100 ML IV SCH ×2 (08:52→21:29)
--- NOTE | 2016-11-03 09:00 | NUR ---
RN NOTES: Dr. Ricardo Quinones made aware of scheduled procedure tomorrow.
--- NOTE | 2016-11-03 10:00 | NUR ---
RN NOTES: GT aspirated, 5 cc residual noted. Pt hooked back on Novasource at 10 cc/hr. Will monitor for any residual.
--- NOTE | 2016-11-03 11:00 | NUR ---
RN NOTES: GT checked for residual, noted 100 ml. TF stopped at this time.
[2016-11-03] MEDS: INSULIN REGULAR, HUMAN 100 UNIT/ML 3 ML VIAL SQ PRN ×2 (11:54→17:08)
[2016-11-03 12:00] VITALS: BP 89/38
[2016-11-03 16:00] VITALS: BP 97/46
--- NOTE | 2016-11-03 18:49 | NUR ---
RN CLOSING NOTES: No acute changes noted w/in shift. Pt tolerated mech vent settings. Secretions suctioned. PEG kept in place, clamped. IV lines kept patent & intact: R hand G20 PL, w/ D10 1L x 20 cc/hr infusing well & L hand G20, SL, both no signs of infection/ infiltration noted. Kept well rested. Needs attended. Call light placed w/in reach. Bed kept low & in locked pos. Wound care done. Turned, repositioned & offloaded heels. Will endorse to PM RN for CONNOR.
--- NOTE | 2016-11-03 19:30 | NUR ---
COMMUNITY OUTREACH SPECIALIST INITIAL NOTE RECEIVED REPORT FROM ARCELIA Golden RN. PT IN BED. CHRONIC VENT TRACH, TOLERATING CURRENT VENT SETTINGS. LUNG SOUNDS RHONCHI. SUCTIONED FOR COMFORT. PT ABLE TO MOUTHS WORDS IN [place]. BOWEL SOUNDS HYPOACTIVE. ABDOMEN MORE DISTENDED TODAY. PT IS NOT TOLERATING FEEDING, FEEDING ON HOLD AT THIS TIME. IV PATENT AND INTACT. DIAPER INTACT, OLIGURIC. REPOSITIONED FOR COMFORT. SON AT BEDSIDE (SERGIO). BED IN LOW LOCKED POSITION. CALL LIGHT WITHIN REACH.
--- NOTE | 2016-11-03 19:35 | NUR ---
CONTRACT DRIVER DR DEE CALLED, INFORMING ABOUT PROCEDURE IN AM. NPO AFTER MIDNIGHT. INFORMED DR ABOUT DISTENDED ABDOMEN, HE ORDERED FOR TOMORROW US GUIDED PARACENTESIS. REQUESTED DIALYSIS TO BE DONE PRIOR TO EGD WITH PEG INSERTION. WILL CALL [facility] DIALYSIS NURSE TO REQUEST EARLY DIALYSIS. WILL CONTINUE TO MONITOR.
[2016-11-03 20:00] VITALS: BP 135/77
[2016-11-04] VITALS: BP 130/46
[2016-11-04] MEDS: ACETYLCYSTEINE 10% SOLN 400 MG/4 ML VIAL NEB SCH ×3 (00:10→15:31)
[2016-11-04] MEDS: BLOOD SUGAR DIAGNOSTIC 1 EACH STRIP IN SCH ×5 (00:24→23:43)
[2016-11-04] MEDS: METOCLOPRAMIDE HCL 10 MG/10 ML UDC GT SCH ×5 (00:24→23:43)
[2016-11-04] MEDS: IPRATROPIUM NEB FS 0.5 MG/2.5 ML AMPUL.NEB IH SCH ×4 (01:42→20:08)
[2016-11-04] MEDS: ALBUTEROL FS 2.5 MG/0.5 ML VIAL.NEB NEB SCH ×4 (01:42→20:08)
[2016-11-04 04:00] VITALS: BP 110/20
[2016-11-04] MEDS: SILDENAFIL CITRATE 20 MG TABLET GT SCH ×3 (04:52→20:42)
[2016-11-04] MEDS: MIDODRINE HCL (5MG) 5 MG TABLET GT SCH ×3 (04:52→20:43)
[2016-11-04] MEDS: PANTOPRAZOLE 40 MG/PACK PACK GT SCH (05:55)
[2016-11-04 08:00] VITALS: BP_SYST 93; BP_SYST 99; BP_DIAS 33; BP_DIAS 53
[2016-11-04] MEDS ORDERED: IV SET PRIMARY PUMP SET 1 EA INFUS.SET MC ONE (08:24)
[2016-11-04] MEDS: POTASSIUM CL. PREMIX PERIPHER. 50 ML IV SCH ×4 (08:29→11:02)
[2016-11-04] MEDS: VIT B CMPLX 3/FA/VIT C/BIOTIN 1 TAB TABLET GT SCH (09:00)
[2016-11-04] MEDS: ACETAMINOPHEN 650 MG/20.3 ML UDC GT SCH (09:00)
[2016-11-04] MEDS: ZINC SULFATE 220 MG CAPSULE GT SCH (09:00)
[2016-11-04] MEDS: PROSOURCE / PROSTAT (PYXIS) 30 ML UDC GT SCH (09:00)
[2016-11-04] MEDS: DOCUSATE SODIUM LIQ 100 MG/10 ML UDC GT SCH ×2 (09:00→16:53)
[2016-11-04] MEDS: ASCORBIC ACID SYRUP 500 MG/5 ML UDC GT SCH (09:00)
[2016-11-04] MEDS: CALCITRIOL ORAL SOLUTION 1 MCG/ML GT SCH (09:00)
[2016-11-04] MEDS: HYDROGEL DRESSING 90 GM TUBE TP SCH (09:08)
[2016-11-04] MEDS: Z GUARD REMEDY 2 OZ OINT TP SCH (09:08)
--- NOTE | 2016-11-04 10:01 | NUR ---
CONCERT PIANIST NOTE Done with JT replacement, patient tolerated procedure well, with order to may use JT for feeding and meds and flush with 60mL water every after med administration.
[2016-11-04] MEDS: LEVETIRACETAM SOL (5 ML) 100 MG/ML UDC GT SCH ×2 (11:02→20:43)
[2016-11-04 11:17] LABS: INR 1.22 (0.87-1.13); PROTHROMBIN TIME 13.2 SECS (9.5-12.7)
--- NOTE | 2016-11-04 11:55 | NUR ---
DOWEL SANDER OPERATOR NOTE 0720: Received patient awake, able to mouth words, A/Ox2. With trache to vent, tolerated settings well. With GT clamped. Awaiting JT replacement. With PIVs intact, IVF infusing as ordered. Still noted with abdominal distention, awaiting paracentesis today. 0800: Called Dr. Desai and made aware HD not yet mason, said ok to do HD after procedure. Informed VSS at this time, K level 3.4, with order to give 40mEq KCl. 1000: Done with HT replacement, patient tolerated well, with order to resume GT feeding and may use GT for feeding and meds and to flush 60mL water q after medical assistant supervisor. 1200: HD nurse at bedside for HD, son at bedside, given update re: patient's condition.
[2016-11-04 12:00] VITALS: BP 98/51
--- NOTE | 2016-11-04 13:50 | NUR ---
JEWEL GRINDER NOTE Patient done with HD, with 1L out. Called Radiology for US guided paracentesis.
--- NOTE | 2016-11-04 15:15 | NUR ---
RECREATIONAL COUNSELOR NOTE Paracentesis done, with 5000mL output, sent to labs. Dr. Anderson ordered cytology.
[2016-11-04] MEDS: RENAL NOVASOURCE 1,000 ML BOTTLE GT PRN (15:22)
[2016-11-04 16:00] VITALS: BP 98/57
[2016-11-04] MEDS: INSULIN REGULAR, HUMAN 100 UNIT/ML 3 ML VIAL SQ PRN (17:26)
--- NOTE | 2016-11-04 19:35 | NUR ---
DERRICK HAND INITIAL NOTE PT RECEIVED RESTING IN BED WITH FAMILY AT BEDSIDE. A/O X2 TAMAZIGHT SPEAKING AND ABLE TO MOUTH WORDS. ON MECH VENT WITH SETTINGS WELL TOLERATED AND SATING WELL. GTUBE SITE CLEAN AND INTACT. GTUBE PATENT, FLUSHING WELL AND NO RESIDUAL NOTED AT THIS TIME. NO C/O OF PAIN OR DISCOMFORT AT THIS TIME. IV SITES INTACT, PATENT AND FLUSHING WELL. HD CATH CLEAN AND INTACT. WILL CONTINUE TO MONITOR.
[2016-11-04 20:00] VITALS: BP 89/40
[2016-11-05] VITALS: BP 94/53
[2016-11-05] MEDS: ACETYLCYSTEINE 10% SOLN 400 MG/4 ML VIAL NEB SCH ×3 (02:06→14:30)
[2016-11-05] MEDS: IPRATROPIUM NEB FS 0.5 MG/2.5 ML AMPUL.NEB IH SCH ×4 (02:06→19:36)
[2016-11-05] MEDS: ALBUTEROL FS 2.5 MG/0.5 ML VIAL.NEB NEB SCH ×4 (02:06→19:36)
[2016-11-05 04:00] VITALS: BP 95/41
[2016-11-05] MEDS: SILDENAFIL CITRATE 20 MG TABLET GT SCH ×3 (05:00→20:50)
[2016-11-05] MEDS: BLOOD SUGAR DIAGNOSTIC 1 EACH STRIP IN SCH ×4 (05:18→23:31)
[2016-11-05] MEDS: METOCLOPRAMIDE HCL 10 MG/10 ML UDC GT SCH ×4 (05:18→23:31)
[2016-11-05] MEDS: MIDODRINE HCL (5MG) 5 MG TABLET GT SCH ×3 (05:18→20:50)
[2016-11-05] MEDS: PANTOPRAZOLE 40 MG/PACK PACK GT SCH (05:42)
[2016-11-05] MEDS: INSULIN REGULAR, HUMAN 100 UNIT/ML 3 ML VIAL SQ PRN ×3 (05:48→23:44)
--- NOTE | 2016-11-05 06:53 | NUR ---
UNIT MANAGER CONVENIENCE STORES CLOSING NOTE PT REMAINED STABLE DURING SHIFT. VENT SETTINGS WELL TOLERATED. IV SITES CLEAN AND INTACT. GTUBE CLEAN AND NO S/SX OF INFECTION NOTED. NO RESIDUAL NOTED AND FLUSHING WELL. NO C/O PAIN OR DISCOMFORT NOTED. WILL ENDORSE TO NEXT SHIFT FOR CONNOR.
--- NOTE | 2016-11-05 07:30 | NUR ---
INITIAL NOTE RECEIVED BED SIDE REPORT. TRACH, JT, AND L HAND IV NO COMPLICATIONS. R HAND IV TENDER UPON FLUSH. DENIES PAIN. BREATHING AND LOC AT BASELINE, STABLE. DISCUSSED PLAN OF CARE, PATIENT NODS. SKIN WARM AND DRY,PULSES PALPABLE IN ALL EXTREMITIES. CALL LIGHT IN REACH.
[2016-11-05 08:00] VITALS: BP 91/34
[2016-11-05 08:09] LABS: BASOPHILS % (AUTO) 0.4 % (0.0-2.0); EOSINOPHILS # (AUTO) 0.2 /CMM (0.0-0.7); EOSINOPHILS % (AUTO) 2.4 % (0.0-6.0); HEMATOCRIT 25 % (33-45); HEMOGLOBIN 8.5 g/dL (11.5-14.8); LYMPHOCYTES # (AUTO) 1.3 /CMM (0.8-4.8); LYMPHOCYTES % (AUTO) 13.8 % (20.0-44.0); MEAN CORPUSCULAR HEMOGLOBIN 32 PG (26.0-33.0); MEAN CORPUSCULAR HGB CONC 35 g/dl (31.0-36.0); MEAN CORPUSCULAR VOLUME 92 fL (82-100); MONOCYTES # (AUTO) 0.7 /CMM (0.1-1.30); MONOCYTES % (AUTO) 7.5 % (2.0-12.0); NEUTROPHILS # (AUTO) 7.1 /CMM (1.8-8.9); NEUTROPHILS % (AUTO) 75.9 % (43.0-81.0); PLATELET COUNT (AUTO) 203 /CMM (150-450); RED BLOOD CELL COUNT(AUTO) 2.69 MIL/uL (4.0-5.2); WHITE BLOOD COUNT (AUTO) 9.4 K/uL (4.3-11.0)
[2016-11-05] MEDS: DOCUSATE SODIUM LIQ 100 MG/10 ML UDC GT SCH ×2 (08:12→18:26)
[2016-11-05] MEDS: LEVETIRACETAM SOL (5 ML) 100 MG/ML UDC GT SCH ×2 (08:12→20:49)
[2016-11-05] MEDS: VIT B CMPLX 3/FA/VIT C/BIOTIN 1 TAB TABLET GT SCH (08:12)
[2016-11-05] MEDS: ZINC SULFATE 220 MG CAPSULE GT SCH (08:12)
[2016-11-05] MEDS: CALCITRIOL ORAL SOLUTION 1 MCG/ML GT SCH (08:12)
[2016-11-05] MEDS: PROSOURCE / PROSTAT (PYXIS) 30 ML UDC GT SCH (08:12)
[2016-11-05] MEDS: ACETAMINOPHEN 650 MG/20.3 ML UDC GT SCH (08:12)
[2016-11-05] MEDS: ASCORBIC ACID SYRUP 500 MG/5 ML UDC GT SCH (08:12)
[2016-11-05] MEDS: Z GUARD REMEDY 2 OZ OINT TP SCH (08:13)
[2016-11-05] MEDS: HYDROGEL DRESSING 90 GM TUBE TP SCH (08:13)
[2016-11-05 08:21] LABS: ALANINE AMINOTRANSFERASE 12 U/L (12-78); ALBUMIN 2.3 g/dL (3.4-5.0); ALKALINE PHOSPHATASE 240 U/L (46-116); ASPARTATE AMINOTRANSFERASE 15 U/L (15-37); BILIRUBIN,TOTAL 0.8 mg/dL (0.2-1.0); CALCIUM, SERUM 8.4 mg/dL (8.5-10.1); CARBON DIOXIDE 28 mmol/L (21-32); CHLORIDE 96 mmol/L (98-107); CREATININE 2.1 mg/dL (0.6-1.3); GLUCOSE 109 mg/dL (74-106); MAGNESIUM 1.7 mg/dL (1.8-2.4); SODIUM SERUM 133 mmol/L (136-145); TOTAL PROTEIN, SERUM 6.3 g/dL (6.4-8.2); UREA NITROGEN, BLOOD 35 mg/dL (7-18)
[2016-11-05 12:00] VITALS: BP 90/40
[2016-11-05] MEDS ORDERED: POTASSIUM CL. PREMIX PERIPHER. 50 ML IV SCH (13:30)
--- NOTE | 2016-11-05 13:54 | NUR ---
reviewed plan of care with dr. Anderson at nursing station. said ok to give potassium powder in JT instead of IV d/t s/e of burning. gave verbal order to d/c iv fluids because patient tolerating feeding & BS stable.
[2016-11-05 16:00] VITALS: BP 90/34
[2016-11-05] MEDS ORDERED: POTASSIUM CHLORIDE 20 MEQ POWDER PACKET GT ONE (17:00)
--- NOTE | 2016-11-05 18:57 | NUR ---
end of shift breathing stable with mechanical ventilator, LOC unchanged- at baseline. provided extensive adl, skin and wound care this shift with repositioning q2 hr. son at bedside witness, also educated on dz process and medication being administered. son verbalized understanding. no complications with GT this shift. some occurrences of 50ml residuals, dr. Blake and Peleg aware, said continue feeding.no drainage from paracentesis site. no draining from GT site. minimal tracheal secretions suctioned this shift. call light in reach.
--- NOTE | 2016-11-05 19:32 | NUR ---
GAME AND FISH PROTECTOR INITIAL NOTE PT RECEIVED RESTING IN BED WITH FAMILY AT BEDSIDE. A/O X2-3 AND ABLE TO MOUTH WORDS IN ERITREAN. ON MECH VENT WITH SETTINGS WELL TOLERATED AND SATING WELL. IV SITES INTACT, PATENT AND FLUSHING WELL. GTUBE FEEDING WELL TOLERATED WITH 10 ML OF RESIDUAL NOTED. GTUBE SITE CLEAN WITH NO LEAKAGE NOTED. NO C/O PF PAIN AT THIS TIME. WILL CONTINUE TO MONITOR.
[2016-11-05 20:00] VITALS: BP 126/44
[2016-11-05] MEDS: RENAL NOVASOURCE 1,000 ML BOTTLE GT PRN (20:49)
[2016-11-05] MEDS: ACETAMINOPHEN 650 MG/20.3 ML UDC GT PRN (23:58)
[2016-11-06] VITALS: BP 120/52
[2016-11-06] MEDS: IPRATROPIUM NEB FS 0.5 MG/2.5 ML AMPUL.NEB IH SCH ×4 (01:13→20:15)
[2016-11-06] MEDS: ACETYLCYSTEINE 10% SOLN 400 MG/4 ML VIAL NEB SCH ×4 (01:13→23:41)
[2016-11-06] MEDS: ALBUTEROL FS 2.5 MG/0.5 ML VIAL.NEB NEB SCH ×4 (01:13→20:15)
[2016-11-06 04:00] VITALS: BP 97/46
[2016-11-06] MEDS: SILDENAFIL CITRATE 20 MG TABLET GT SCH ×3 (05:00→20:39)
[2016-11-06] MEDS: PANTOPRAZOLE 40 MG/PACK PACK GT SCH (05:55)
[2016-11-06] MEDS: METOCLOPRAMIDE HCL 10 MG/10 ML UDC GT SCH ×3 (05:55→17:09)
[2016-11-06] MEDS: MIDODRINE HCL (5MG) 5 MG TABLET GT SCH ×3 (05:56→20:40)
[2016-11-06] MEDS: BLOOD SUGAR DIAGNOSTIC 1 EACH STRIP IN SCH ×3 (05:57→17:09)
--- NOTE | 2016-11-06 07:20 | NUR ---
BUSINESS MANAGEMENT INTERN CLOSING NOTE PT REMAINED STABLE DURING SHIFT. VENT SETTINGS WELL TOLERATED. IV SITES CLEAN AND INTACT. GTUBE CLEAN AND NO S/SX OF INFECTION NOTED. NO RESIDUAL NOTED AND FLUSHING WELL. NO C/O PAIN OR DISCOMFORT NOTED. WILL ENDORSE TO NEXT SHIFT FOR CONNOR
[2016-11-06 08:00] VITALS: BP 94/49
[2016-11-06] MEDS: PROSOURCE / PROSTAT (PYXIS) 30 ML UDC GT SCH (08:56)
[2016-11-06] MEDS: HYDROGEL DRESSING 90 GM TUBE TP SCH (08:56)
[2016-11-06] MEDS: LEVETIRACETAM SOL (5 ML) 100 MG/ML UDC GT SCH ×2 (08:57→20:40)
[2016-11-06] MEDS: CALCITRIOL ORAL SOLUTION 1 MCG/ML GT SCH (08:57)
[2016-11-06] MEDS: ASCORBIC ACID SYRUP 500 MG/5 ML UDC GT SCH (08:57)
[2016-11-06] MEDS: VIT B CMPLX 3/FA/VIT C/BIOTIN 1 TAB TABLET GT SCH (08:57)
[2016-11-06] MEDS: ACETAMINOPHEN 650 MG/20.3 ML UDC GT SCH (08:57)
[2016-11-06] MEDS: DOCUSATE SODIUM LIQ 100 MG/10 ML UDC GT SCH ×2 (08:57→17:09)
[2016-11-06] MEDS: Z GUARD REMEDY 2 OZ OINT TP SCH (08:57)
[2016-11-06] MEDS: ZINC SULFATE 220 MG CAPSULE GT SCH (08:57)
[2016-11-06 12:00] VITALS: BP_SYST 94; BP_DIAS 46; BP_DIAS 49
[2016-11-06] MEDS ORDERED: EPOETIN ALFA (10,000 UNIT) 10,000 UNIT/ML VIAL SQ ONE (12:00)
[2016-11-06 12:33] LABS: BASOPHILS % (AUTO) 0.3 % (0.0-2.0); EOSINOPHILS # (AUTO) 0.4 /CMM (0.0-0.7); EOSINOPHILS % (AUTO) 2.7 % (0.0-6.0); HEMATOCRIT 25 % (33-45); HEMOGLOBIN 8.6 g/dL (11.5-14.8); LYMPHOCYTES # (AUTO) 1.2 /CMM (0.8-4.8); LYMPHOCYTES % (AUTO) 9.3 % (20.0-44.0); MEAN CORPUSCULAR HEMOGLOBIN 31 PG (26.0-33.0); MEAN CORPUSCULAR HGB CONC 34 g/dl (31.0-36.0); MEAN CORPUSCULAR VOLUME 92 fL (82-100); MONOCYTES # (AUTO) 0.7 /CMM (0.1-1.30); MONOCYTES % (AUTO) 5.3 % (2.0-12.0); NEUTROPHILS % (AUTO) 82.4 % (43.0-81.0); PLATELET COUNT (AUTO) 207 /CMM (150-450); RDW COEFFICIENT OF VARIATION 16.1 (11.5-15.0); RED BLOOD CELL COUNT(AUTO) 2.73 MIL/uL (4.0-5.2); WHITE BLOOD COUNT (AUTO) 13.4 K/uL (4.3-11.0)
[2016-11-06] MEDS ORDERED: SECONDARY IV SET 1 EA INFUS.SET MC ONE (13:41)
[2016-11-06] MEDS: ALBUMIN 25% 25 GM in PREMIX 1 EA IV PRN (13:48)
[2016-11-06 16:00] VITALS: BP 83/40
[2016-11-06] MEDS: MUPIROCIN OINT 2% 22 GM TUBE SCH ×2 (17:09→20:43)
--- NOTE | 2016-11-06 19:13 | NUR ---
rn note no significant changes. stable. son at bed side. repositioned q2 hours and provided extensive skin and wound care. no significant residuals received in J tube, functioning well.
--- NOTE | 2016-11-06 19:36 | NUR ---
ARCHITECTURAL INTERN INITIAL NOTE PT RECEIVED RESTING IN BED WITH FAMILY AT BEDSIDE. A/O X2-3 AND ABLE TO MOUTH WORDS IN [place]. ON MECH VENT WITH SETTINGS WELL TOLERATED AND SATING WELL. IV SITES INTACT, PATENT AND FLUSHING WELL. GTUBE FEEDING WELL TOLERATED WITH NO RESIDUAL NOTED. GTUBE SITE CLEAN WITH NO LEAKAGE NOTED. NO C/O PAIN AT THIS TIME. WILL CONTINUE TO MONITOR.
[2016-11-06 20:00] VITALS: BP 93/34
[2016-11-07] VITALS: BP 86/39
[2016-11-07] MEDS: BLOOD SUGAR DIAGNOSTIC 1 EACH STRIP IN SCH ×5 (00:09→23:36)
[2016-11-07] MEDS: METOCLOPRAMIDE HCL 10 MG/10 ML UDC GT SCH ×5 (00:09→23:36)
[2016-11-07] MEDS: IPRATROPIUM NEB FS 0.5 MG/2.5 ML AMPUL.NEB IH SCH ×4 (01:44→19:40)
[2016-11-07] MEDS: ALBUTEROL FS 2.5 MG/0.5 ML VIAL.NEB NEB SCH ×4 (01:44→19:41)
[2016-11-07] MEDS: RENAL NOVASOURCE 1,000 ML BOTTLE GT PRN (03:28)
[2016-11-07 04:00] VITALS: BP 91/38
[2016-11-07] MEDS: SILDENAFIL CITRATE 20 MG TABLET GT SCH ×3 (05:00→20:54)
[2016-11-07] MEDS: PANTOPRAZOLE 40 MG/PACK PACK GT SCH (05:40)
[2016-11-07] MEDS: MIDODRINE HCL (5MG) 5 MG TABLET GT SCH ×3 (05:41→20:54)
--- NOTE | 2016-11-07 06:42 | NUR ---
BICYCLE I ASSEMBLER CLOSING NOTE PT REMAINED STABLE DURING SHIFT. NO ACUTE DISTRESS NOTED. VENT SETTINGS WELL TOLERATED. IV SITE L HAND #22 CLEAN AND INTACT. GTUBE CLEAN AND NO S/SX OF INFECTION NOTED. NO RESIDUAL NOTED AND FLUSHING WELL. NO C/O PAIN OR DISCOMFORT NOTED. ISOLATION PRECAUTIONS OBSERVED. WILL ENDORSE TO NEXT SHIFT FOR CONNOR
[2016-11-07 06:57] LABS: CARBON DIOXIDE 29 mmol/L (21-32); CHLORIDE 103 mmol/L (98-107); CREATININE 1.7 mg/dL (0.6-1.3); GLUCOSE 131 mg/dL (74-106); MAGNESIUM 1.9 mg/dL (1.8-2.4); PHOSPHORUS 1.9 mg/dL (2.5-4.9); POTASSIUM 3.5 mmol/L (3.5-5.1); SODIUM SERUM 140 mmol/L (136-145); UREA NITROGEN, BLOOD 36 mg/dL (7-18)
[2016-11-07] MEDS: ACETYLCYSTEINE 10% SOLN 400 MG/4 ML VIAL NEB SCH ×3 (07:41→23:27)
[2016-11-07 07:42] LABS: HEMOGLOBIN 8.4 g/dL (11.5-14.8); RED BLOOD CELL COUNT(AUTO) 2.71 MIL/uL (4.0-5.2); WHITE BLOOD COUNT (AUTO) 11.3 K/uL (4.3-11.0)
[2016-11-07 07:43] LABS: BASOPHILS % (AUTO) 0.3 % (0.0-2.0); EOSINOPHILS # (AUTO) 0.3 /CMM (0.0-0.7); EOSINOPHILS % (AUTO) 2.5 % (0.0-6.0); HEMATOCRIT 25 % (33-45); LYMPHOCYTES # (AUTO) 1.4 /CMM (0.8-4.8); LYMPHOCYTES % (AUTO) 12.5 % (20.0-44.0); MEAN CORPUSCULAR HEMOGLOBIN 31 PG (26.0-33.0); MEAN CORPUSCULAR HGB CONC 33 g/dl (31.0-36.0); MEAN CORPUSCULAR VOLUME 93 fL (82-100); MONOCYTES # (AUTO) 0.8 /CMM (0.1-1.30); NEUTROPHILS # (AUTO) 8.8 /CMM (1.8-8.9); NEUTROPHILS % (AUTO) 77.7 % (43.0-81.0); PLATELET COUNT (AUTO) 224 /CMM (150-450); RDW COEFFICIENT OF VARIATION 16.6 (11.5-15.0)
[2016-11-07 08:00] VITALS: BP_SYST 153; BP_SYST 90; BP_DIAS 104; BP_DIAS 34
--- NOTE | 2016-11-07 08:00 | NUR ---
TELE1/RN AM SHIFT INITIAL NOTES RECEIVED PT ASLEEP IN BED, A/O X 2-3 ABLE TO MOUTH WORDS IN MOROCCAN. AROUSEABLE, DENIES PAIN. NO ACUTE CHANGE OF CONDITION NOTED. ON VENTILATOR RATES SET PRESCRIBED, SATURATING @ 100%, LUNG SOUNDS CLEAR, PT REFUSED TO BE SUCTIONED. ON TELE WITH CONTROLLED A-FIB, HR 84. IV SITE FLUSHED PATENT WITH NO S/S OF INFECTION. GTF ON GOING, SITE NO S/S OF INFECTION. PT IS COMFORTABLE AT THIS TIME. SCHEDULED AM MEDS TO BE GIVEN. CL WITHIN REACHED, SAFETY MAINTAINED. AND ISOLATION OBSERVED. ON GOING MONITORING.
[2016-11-07] MEDS: ASCORBIC ACID SYRUP 500 MG/5 ML UDC GT SCH (09:02)
[2016-11-07] MEDS: ACETAMINOPHEN 650 MG/20.3 ML UDC GT SCH (09:02)
[2016-11-07] MEDS: VIT B CMPLX 3/FA/VIT C/BIOTIN 1 TAB TABLET GT SCH (09:02)
[2016-11-07] MEDS: ZINC SULFATE 220 MG CAPSULE GT SCH (09:02)
[2016-11-07] MEDS: LEVETIRACETAM SOL (5 ML) 100 MG/ML UDC GT SCH ×2 (09:02→20:54)
[2016-11-07] MEDS: DOCUSATE SODIUM LIQ 100 MG/10 ML UDC GT SCH ×2 (09:02→16:53)
[2016-11-07] MEDS: CALCITRIOL ORAL SOLUTION 1 MCG/ML GT SCH (09:02)
[2016-11-07] MEDS: PROSOURCE / PROSTAT (PYXIS) 30 ML UDC GT SCH (09:02)
[2016-11-07] MEDS: Z GUARD REMEDY 2 OZ OINT TP SCH (09:03)
[2016-11-07] MEDS: HYDROGEL DRESSING 90 GM TUBE TP SCH (09:03)
[2016-11-07] MEDS: MUPIROCIN OINT 2% 22 GM TUBE SCH ×2 (09:03→20:55)
[2016-11-07 12:00] VITALS: BP 91/61
[2016-11-07] MEDS ORDERED: Sodium Phosphate 15 MMOL in IV D5W 250 ML IV ONE (12:00)
[2016-11-07] MEDS ORDERED: SECONDARY IV SET 1 EA INFUS.SET MC ONE (12:05)
[2016-11-07] MEDS ORDERED: IV NS 0.9% 250 ML IV ONE (12:23)
[2016-11-07] MEDS ORDERED: IV SET PRIMARY PUMP SET 1 EA INFUS.SET MC ONE (12:23)
[2016-11-07 16:00] VITALS: BP 92/43
[2016-11-07] MEDS ORDERED: RENAL NOVASOURCE 1,000 ML BOTTLE GT PRN (16:24)
--- NOTE | 2016-11-07 17:00 | NUR ---
TELE1/RN AFTERNOON ROUNDS PM CARE PROVIDED. GTF RATE CHANGE TO 35CC/HR PER RECOMMENDATION OF DRAG DOWN, DR. ARMAS AWARE. NO ACUTE CHANGE OF CONDITION. PT IS COMFORTABLE. PT'S SON AT BEDSIDE. MONITORING CONTINUED.
[2016-11-07] MEDS: INSULIN REGULAR, HUMAN 100 UNIT/ML 3 ML VIAL SQ PRN (17:12)
--- NOTE | 2016-11-07 19:00 | NUR ---
TELE1/RN AM SHIFT END NOTES NO ACUTE CHANGE OF CONDITION NOTED DURING THE SHIFT. NEEDS MET. PT ENDORSED TO PM NURSE TO CONTINUE CARE. CL WITHIN REACHED, SAFETY MAINTAINED AND ISOLATION OBSERVED.
[2016-11-07 20:00] VITALS: BP 99/47
[2016-11-08] VITALS (7 sets, daily range): BP systolic 90–109; BP diastolic 37–58
[2016-11-08] MEDS: IPRATROPIUM NEB FS 0.5 MG/2.5 ML AMPUL.NEB IH SCH ×4 (01:29→19:26)
[2016-11-08] MEDS: ALBUTEROL FS 2.5 MG/0.5 ML VIAL.NEB NEB SCH ×4 (01:29→19:26)
[2016-11-08] MEDS: SILDENAFIL CITRATE 20 MG TABLET GT SCH ×3 (05:00→21:00)
[2016-11-08] MEDS: BLOOD SUGAR DIAGNOSTIC 1 EACH STRIP IN SCH ×3 (05:54→17:23)
[2016-11-08] MEDS: PANTOPRAZOLE 40 MG/PACK PACK GT SCH (05:56)
[2016-11-08] MEDS: METOCLOPRAMIDE HCL 10 MG/10 ML UDC GT SCH ×3 (05:56→17:23)
[2016-11-08] MEDS: MIDODRINE HCL (5MG) 5 MG TABLET GT SCH ×3 (05:56→21:39)
[2016-11-08 07:11] LABS: BASOPHILS % (AUTO) 0.2 % (0.0-2.0); EOSINOPHILS # (AUTO) 0.4 /CMM (0.0-0.7); EOSINOPHILS % (AUTO) 3.5 % (0.0-6.0); HEMATOCRIT 24 % (33-45); HEMOGLOBIN 8.1 g/dL (11.5-14.8); LYMPHOCYTES # (AUTO) 1.5 /CMM (0.8-4.8); LYMPHOCYTES % (AUTO) 12.6 % (20.0-44.0); MEAN CORPUSCULAR HEMOGLOBIN 31 PG (26.0-33.0); MEAN CORPUSCULAR HGB CONC 34 g/dl (31.0-36.0); MEAN CORPUSCULAR VOLUME 93 fL (82-100); MONOCYTES # (AUTO) 0.8 /CMM (0.1-1.30); MONOCYTES % (AUTO) 6.9 % (2.0-12.0); NEUTROPHILS # (AUTO) 9.1 /CMM (1.8-8.9); NEUTROPHILS % (AUTO) 76.8 % (43.0-81.0); PLATELET COUNT (AUTO) 215 /CMM (150-450); RDW COEFFICIENT OF VARIATION 16.6 (11.5-15.0); RED BLOOD CELL COUNT(AUTO) 2.61 MIL/uL (4.0-5.2); WHITE BLOOD COUNT (AUTO) 11.9 K/uL (4.3-11.0)
[2016-11-08] MEDS: ACETYLCYSTEINE 10% SOLN 400 MG/4 ML VIAL NEB SCH ×3 (07:26→23:21)
[2016-11-08 07:40] LABS: CALCIUM, SERUM 8.7 mg/dL (8.5-10.1); CARBON DIOXIDE 27 mmol/L (21-32); CHLORIDE 100 mmol/L (98-107); GLUCOSE 127 mg/dL (74-106); MAGNESIUM 1.9 mg/dL (1.8-2.4); PHOSPHORUS 3.5 mg/dL (2.5-4.9); POTASSIUM 3.2 mmol/L (3.5-5.1); SODIUM SERUM 137 mmol/L (136-145); UREA NITROGEN, BLOOD 53 mg/dL (7-18)
[2016-11-08] MEDS: ACETAMINOPHEN 650 MG/20.3 ML UDC GT SCH (09:00)
[2016-11-08] MEDS: DOCUSATE SODIUM LIQ 100 MG/10 ML UDC GT SCH ×2 (09:59→17:00)
[2016-11-08] MEDS: PROSOURCE / PROSTAT (PYXIS) 30 ML UDC GT SCH (09:59)
[2016-11-08] MEDS: LEVETIRACETAM SOL (5 ML) 100 MG/ML UDC GT SCH ×2 (09:59→21:39)
[2016-11-08] MEDS: VIT B CMPLX 3/FA/VIT C/BIOTIN 1 TAB TABLET GT SCH (09:59)
[2016-11-08] MEDS: ASCORBIC ACID SYRUP 500 MG/5 ML UDC GT SCH (09:59)
[2016-11-08] MEDS: CALCITRIOL ORAL SOLUTION 1 MCG/ML GT SCH (09:59)
[2016-11-08] MEDS: ZINC SULFATE 220 MG CAPSULE GT SCH (09:59)
[2016-11-08] MEDS: MUPIROCIN OINT 2% 22 GM TUBE SCH ×2 (10:00→21:47)
[2016-11-08] MEDS: Z GUARD REMEDY 2 OZ OINT TP SCH (10:01)
[2016-11-08] MEDS: HYDROGEL DRESSING 90 GM TUBE TP SCH (10:01)
[2016-11-08] MEDS ORDERED: IV NS 0.9% 1,000 ML IV ONE (12:00)
[2016-11-08] MEDS ORDERED: IV NS 0.9% 1,000 ML IV PRN (12:30)
[2016-11-08] MEDS: INSULIN REGULAR, HUMAN 100 UNIT/ML 3 ML VIAL SQ PRN (12:38)
--- NOTE | 2016-11-08 19:30 | NUR ---
RN INITIAL NOTE RECEIVED PT IN NO ACUTE DISTRESS IN BED. PT IS A/O X 2 AND ABLE TO MOUTH WORDS. PT IS ESTONIAN SPEAKING. PT HAS FAMILY AT BEDSIDE. PT IS ON MECHANICAL VENT VIA TRACH. TRACH SITE IS CLEAN DRY AND INTACT. PT TOLERATING VENT SETTING WELL. PT IS ON TELE WITH AFIB ON THE MONITOR. PT HAS GTUBE/JTUBE IN PLACE THAT IS CLEAN DRY INTACT AND PATENT WITH NOVASOURCE @ 45ML/HR INTO GTUBE. JTUBE WAS REPORTED CLOGGED. WILL WAIT TO TRY TO UNCLOG JTUBE LATER IN SHIFT IN HOPES FEEDING WILL DISSOLVE ON ITS OWN. PT HAS F/C THAT IS CLEAN DRY INTACT AND PATENT WITH FLETCHER COLOR URINE DRAINING. PT HAS RCHEST WALL HD CATH THAT IS CLEAN DRY AND INTACT. PT HAS R WRIST 20G THAT IS CLEAN DRY INTACT AND PATENT WITH FLUSH. PT HAS R HAND 20G THAT IS CLEAN DRY INTACT AND PATENT WITH SALINE LOCK. PT HAS L HAND 20G THAT IS CLEAN DRY INTACT AND PATENT WITH SALINE FLUSH. BED IN LOW LOCK POSITION WITH RAILS UP X 2. CALL LIGHT WITHIN REACH AND ALL SAFETY MEASURES ENSURED AND CARRIED OUT. WILL CONTINUE TO MONITOR PT.
[2016-11-09] VITALS: BP 113/61
[2016-11-09] MEDS: IPRATROPIUM NEB FS 0.5 MG/2.5 ML AMPUL.NEB IH SCH ×3 (01:34→13:42)
[2016-11-09] MEDS: ALBUTEROL FS 2.5 MG/0.5 ML VIAL.NEB NEB SCH ×3 (01:34→13:42)
[2016-11-09 04:00] VITALS: BP 109/59
[2016-11-09] MEDS: SILDENAFIL CITRATE 20 MG TABLET GT SCH ×2 (05:00→12:01)
[2016-11-09] MEDS: MIDODRINE HCL (5MG) 5 MG TABLET GT SCH ×2 (05:21→12:02)
[2016-11-09] MEDS: METOCLOPRAMIDE HCL 10 MG/10 ML UDC GT SCH ×3 (05:22→12:02)
[2016-11-09] MEDS: BLOOD SUGAR DIAGNOSTIC 1 EACH STRIP IN SCH ×3 (05:24→12:02)
[2016-11-09] MEDS: PANTOPRAZOLE 40 MG/PACK PACK GT SCH (05:31)
[2016-11-09] MEDS ORDERED: IV NS 0.9% 250 ML IV ONE (06:05)
--- NOTE | 2016-11-09 06:43 | NUR ---
RN CLOSING NOTE PT REMAINS IN NO ACUTE DISTRESS IN BED. PT DID NOT HAVE ANY SIGNIFICANT CHANGE IN CONDITION DURING SHIFT. ALL NEEDS MET, ALL ORDERS CARRIED OUT. PT TOLERATED VENT SETTING WELL WITH O2 SAT @ 100%. JTUBE UNCLOGGED. WILL ENDORSE TO AM RN FOR CONTINUITY OF CARE.
--- NOTE | 2016-11-09 07:00 | NUR ---
TELE INITIAL NOTE RECEIVED PT A/O X2, OPENS & TRACKS EYES, ABLE TO NOD HEAD. ON MECHANICAL VENT, SETTINGS ORDERED, RESPIRATIONS EVEN & UNLABORED, NO SOB OR DISTRESS NOTED. TELE MONITOR REVEALS CONTROLLED A-FIB, HR= 81. LEFT HAND 20G HL FLUSHED, PATENT, INTACT. IV SITE FREE OF REDNESS, SWELLING AND INFLAMMATION. G-TUBE PRESENT RUNNING NOVASOURCE @ 35 MLS/HR AND J-TUBE IS CLAMPED. BOTH TUBES FLUSHED, PATENT AND INTACT. SAFETY MEASURES TAKEN: BED LOCKED AND IN LOW POSITION, SIDE RAILS UP X2, BED ALARM ON AND CALL LIGHT WITHIN REACH, WILL CONTINUE TO MONITOR.
[2016-11-09] MEDS: ACETYLCYSTEINE 10% SOLN 400 MG/4 ML VIAL NEB SCH ×2 (07:35→15:07)
[2016-11-09 08:00] VITALS: BP 98/39
[2016-11-09] MEDS: CALCITRIOL ORAL SOLUTION 1 MCG/ML GT SCH (08:01)
[2016-11-09] MEDS: ASCORBIC ACID SYRUP 500 MG/5 ML UDC GT SCH (08:01)
[2016-11-09] MEDS: VIT B CMPLX 3/FA/VIT C/BIOTIN 1 TAB TABLET GT SCH (08:02)
[2016-11-09] MEDS: LEVETIRACETAM SOL (5 ML) 100 MG/ML UDC GT SCH (08:02)
[2016-11-09] MEDS: ZINC SULFATE 220 MG CAPSULE GT SCH (08:02)
[2016-11-09] MEDS: DOCUSATE SODIUM LIQ 100 MG/10 ML UDC GT SCH (08:02)
[2016-11-09] MEDS: HYDROGEL DRESSING 90 GM TUBE TP SCH (08:02)
[2016-11-09] MEDS: PROSOURCE / PROSTAT (PYXIS) 30 ML UDC GT SCH (08:02)
[2016-11-09] MEDS: ACETAMINOPHEN 650 MG/20.3 ML UDC GT SCH (08:02)
[2016-11-09] MEDS: Z GUARD REMEDY 2 OZ OINT TP SCH (08:03)
[2016-11-09] MEDS: MUPIROCIN OINT 2% 22 GM TUBE SCH (08:04)
[2016-11-09] MEDS ORDERED: MUPI22OI7 (09:12)
[2016-11-09 12:00] VITALS: BP 92/45
[2016-11-09 12:02] VITALS: BP 92/45
--- NOTE | 2016-11-09 15:45 | NUR ---
TELE DISCHARGE NOTE PT DISCHARGED TO [facility] VIA MED RESPONSE. MARY CHARGE NURSE GAVE REPORT TO PINKY VIERA. CALLED [facility] AND SPOKE TO XAVI VIERA. INFORMED HER PT'S BLOOD PRESSURE DURING DISCHARGE IS 95/47. RN AWARE AND STATES IT IS OKAY TO TRANSFER PT TO [facility]. ALL BELONGINGS SENT WITH PATIENT. MARY CHARGE NURSE INFORMED PT'S SON, ARNOL GARCÍA REGARDING PT'S TRANSFER. FAMILY AWARE.
== END 2016-11-09 15:48 | DRG 853 ==
LOC: ER 14:23 → TELE1 16:50
PROVIDERS: ADMIT Internal Medicine; ATTEND Internal Medicine
PROC: 5A1955Z Respiratory Ventilation, Greater than 96 Consecutive Hours (ICD-10-PCS; principal; 2016-10-14)
PROC: 5A1D60Z (ICD-10-PCS; 2016-10-15)
PROC: 0W9G3ZZ Drainage of Peritoneal Cavity, Percutaneous Approach (ICD-10-PCS; 2016-10-18)
PROC: 0DHA3UZ Insertion of Feeding Device into Jejunum, Percutaneous Approach (ICD-10-PCS; 2016-10-21)
PROC: 0QB10ZZ Excision of Sacrum, Open Approach (ICD-10-PCS; 2016-10-21 10:10)
PROC: 30233N1 Transfusion of Nonautologous Red Blood Cells into Peripheral Vein, Percutaneous Approach (ICD-10-PCS; 2016-10-24)
PROC: 0D2DXUZ Change Feeding Device in Lower Intestinal Tract, External Approach (ICD-10-PCS; 2016-11-04)
PROC: 0W9G3ZZ Drainage of Peritoneal Cavity, Percutaneous Approach (ICD-10-PCS; 2016-11-04)
DX: A41.9 Sepsis, unspecified organism (principal); N18.6 End stage renal disease; L89.154 Pressure ulcer of sacral region, stage 4; K94.22 Gastrostomy infection; I13.2 Hypertensive heart and chronic kidney disease with heart failure and with stage 5 chronic kidney disease, or end stage renal disease; J96.11 Chronic respiratory failure with hypoxia; Z99.11 Dependence on respirator [ventilator] status; E87.1 Hypo-osmolality and hyponatremia; I50.32 Chronic diastolic (congestive) heart failure; R18.8 Other ascites; L03.311 Cellulitis of abdominal wall; I48.2 Chronic atrial fibrillation; I25.5 Ischemic cardiomyopathy; I27.2 Other secondary pulmonary hypertension; K21.9 Gastro-esophageal reflux disease without esophagitis; D63.1 Anemia in chronic kidney disease; Z86.73 Personal history of transient ischemic attack (TIA), and cerebral infarction without residual deficits; Z99.2 Dependence on renal dialysis; Z87.440 Personal history of urinary (tract) infections; Z79.899 Other long term (current) drug therapy; R13.10 Dysphagia, unspecified; Z66 Do not resuscitate; E11.22 Type 2 diabetes mellitus with diabetic chronic kidney disease; K74.60 Unspecified cirrhosis of liver; E78.5 Hyperlipidemia, unspecified; E83.39 Other disorders of phosphorus metabolism; E83.42 Hypomagnesemia; Z88.0 Allergy status to penicillin; Z88.2 Allergy status to sulfonamides; Z88.6 Allergy status to analgesic agent; I95.9 Hypotension, unspecified; L53.8 Other specified erythematous conditions; Y83.9 Surgical procedure, unspecified as the cause of abnormal reaction of the patient, or of later complication, without mention of misadventure at the time of the procedure; Y73.8 Miscellaneous gastroenterology and urology devices associated with adverse incidents, not elsewhere classified; Y92.129 Unspecified place in nursing home as the place of occurrence of the external cause; D64.9 Anemia, unspecified; E11.43 Type 2 diabetes mellitus with diabetic autonomic (poly)neuropathy; K31.84 Gastroparesis; E83.9 Disorder of mineral metabolism, unspecified; E87.6 Hypokalemia; Z90.49 Acquired absence of other specified parts of digestive tract; Z79.01 Long term (current) use of anticoagulants
CPT/HCPCS: 31720; 36415; 36600; 43246; 71010-TC; 74150-TC; 76942-TC; 80048-TC; 80053-TC; 80076-TC; 81000-TC; 82040-TC; 82962-TC; 83605-TC; 83735-TC; 84100-TC; 84484-TC; 85025-TC; 85610-TC; 85730-TC; 86850-TC; 86921-TC; 87040-TC; 87070-TC; 87081-TC; 87086-TC; 88305-TC; 88312-TC; 89051-TC; 90935-TC; 94002-TC; 94003-TC; 94760-TC; 94761-TC; 94762-TC; 99082-TC; A4216; A4217; A4606; A6248; A6253; A6402; A6403; A7526; A9563; J0885; J1160; J1170; J1200; J1650; J1815; J1953; J2185; J2370; J2704; J3475; J3480; J3490; J7030; J7040; J7042; J7050; J7060; J8597; P9016-BL; P9045; P9047; Z7610

== ENCOUNTER 2016-11-23 16:56 | Inpatient (IN) | payer MEDICARE, OTHER ==
[~2016-11-23] VITALS: Ht 172.7 cm; Wt 50.8 kg
[~2016-11-23 16:56] MED LIST changes: -APIX2.5T PO; +ASCO500S2 GT; -ASCO500T9 PO; -Gel Dressing TP; -LACT1CAP72 PO; -MERO500V IV; +MERO500V3 IV; +MUPI22OI7; -NEOM15OI3 TP; -ONDA4TAB5 GT; +ZINC220C8 GT; -ZINC220T GT
[2016-11-23 17:49] VITALS: BP 125/54
[2016-11-23] MEDS ORDERED: ONDANSETRON HCL/PF 4 MG/2 ML VIAL IVP ONE (18:00)
[2016-11-23 18:12] LABS: BASOPHILS % (AUTO) 0.3 % (0.0-2.0); EOSINOPHILS # (AUTO) 0.4 /CMM (0.0-0.7); EOSINOPHILS % (AUTO) 2.7 % (0.0-6.0); HEMATOCRIT 25 % (33-45); HEMOGLOBIN 8.4 g/dL (11.5-14.8); LYMPHOCYTES % (AUTO) 7.5 % (20.0-44.0); MEAN CORPUSCULAR HEMOGLOBIN 33 PG (26.0-33.0); MEAN CORPUSCULAR HGB CONC 33 g/dl (31.0-36.0); MEAN CORPUSCULAR VOLUME 99 fL (82-100); MONOCYTES # (AUTO) 0.8 /CMM (0.1-1.30); MONOCYTES % (AUTO) 6.1 % (2.0-12.0); NEUTROPHILS # (AUTO) 11.7 /CMM (1.8-8.9); NEUTROPHILS % (AUTO) 83.4 % (43.0-81.0); PLATELET COUNT (AUTO) 248 /CMM (150-450); RDW COEFFICIENT OF VARIATION 21.8 (11.5-15.0); RED BLOOD CELL COUNT(AUTO) 2.58 MIL/uL (4.0-5.2); WHITE BLOOD COUNT (AUTO) 13.9 K/uL (4.3-11.0)
[2016-11-23 18:26] LABS: CARBON DIOXIDE 25 mmol/L (21-32); CHLORIDE 103 mmol/L (98-107); CREATININE 1.1 mg/dL (0.6-1.3); GLUCOSE 120 mg/dL (74-106); POTASSIUM 3.6 mmol/L (3.5-5.1); SODIUM SERUM 137 mmol/L (136-145); UREA NITROGEN, BLOOD 17 mg/dL (7-18)
[2016-11-23 18:29] LABS: INR 1.12 (0.87-1.13); PROTHROMBIN TIME 11.7 SECS (9.5-12.7)
[2016-11-23 18:37] LABS: ALANINE AMINOTRANSFERASE 11 U/L (12-78); ALBUMIN 2.7 g/dL (3.4-5.0); ALKALINE PHOSPHATASE 254 U/L (46-116); ASPARTATE AMINOTRANSFERASE 22 U/L (15-37); BILIRUBIN,DIRECT 0.2 mg/dL (0.0-0.2); BILIRUBIN,TOTAL 0.5 mg/dL (0.2-1.0); LIPASE 157 U/L (73-393); TOTAL PROTEIN, SERUM 7.5 g/dL (6.4-8.2)
[2016-11-23] MEDS ORDERED: ONDANSETRON HCL/PF 4 MG/2 ML VIAL ONE (18:37)
[2016-11-23 19:08] LABS: BAND % (MANUAL) 1 % (0.0-5.0); EOSINOPHILS % (MANUAL) 3 % (0-4); LYMPHOCYTES % (MANUAL) 12 % (16-48); MONOCYTES % (MANUAL) 5 % (0-11.0); NEUTROPHILS % (MANUAL) 79 (42-76)
[2016-11-23 19:15] VITALS: BP 110/57
[2016-11-23] MEDS ORDERED: SEVE0.8P GT (19:31)
[2016-11-23 20:30] VITALS: BP 95/48
[2016-11-23 21:48] VITALS: BP 103/60
[2016-11-23 22:30] VITALS: BP 95/48
[2016-11-23] MEDS ORDERED: DEXTROSE 50%-WATER 50 ML DISP.SYRIN IV PRN (22:30)
[2016-11-23] MEDS ORDERED: RENAL NOVASOURCE 1,000 ML BOTTLE GT PRN (23:30)
[2016-11-24] VITALS (8 sets, daily range): BP systolic 86–106; BP diastolic 37–55
[2016-11-24] MEDS: BLOOD SUGAR DIAGNOSTIC 1 EACH STRIP IN SCH ×5 (00:45→23:38)
[2016-11-24] MEDS: INSULIN REGULAR, HUMAN 100 UNIT/ML 3 ML VIAL SQ PRN ×2 (05:35→23:39)
[2016-11-24 07:28] LABS: INR 1.09 (0.87-1.13); PROTHROMBIN TIME 11.7 SECS (9.5-12.7)
[2016-11-24 07:30] LABS: BASOPHILS # (AUTO) 0.1 /CMM (0.0-0.2); BASOPHILS % (AUTO) 0.7 % (0.0-2.0); EOSINOPHILS # (AUTO) 0.3 /CMM (0.0-0.7); EOSINOPHILS % (AUTO) 3.6 % (0.0-6.0); HEMATOCRIT 24 % (33-45); HEMOGLOBIN 7.8 g/dL (11.5-14.8); LYMPHOCYTES % (AUTO) 12.4 % (20.0-44.0); MEAN CORPUSCULAR HEMOGLOBIN 32 PG (26.0-33.0); MEAN CORPUSCULAR HGB CONC 33 g/dl (31.0-36.0); MEAN CORPUSCULAR VOLUME 98 fL (82-100); MONOCYTES # (AUTO) 0.7 /CMM (0.1-1.30); MONOCYTES % (AUTO) 8.5 % (2.0-12.0); NEUTROPHILS % (AUTO) 74.8 % (43.0-81.0); PLATELET COUNT (AUTO) 209 /CMM (150-450); RDW COEFFICIENT OF VARIATION 23.1 (11.5-15.0); RED BLOOD CELL COUNT(AUTO) 2.42 MIL/uL (4.0-5.2)
[2016-11-24 07:41] LABS: MAGNESIUM 2.3 mg/dL (1.8-2.4); PHOSPHORUS 2.2 mg/dL (2.5-4.9)
[2016-11-24] MEDS ORDERED: LEVETIRACETAM SOL (5 ML) 100 MG/ML UDC GT SCH (09:27)
[2016-11-24] MEDS ORDERED: PANTOPRAZOLE 40 MG/PACK PACK GT SCH (09:29)
[2016-11-24] MEDS ORDERED: NUTRITIONAL SUPPLEMENT GT SCH (09:30)
[2016-11-24] MEDS ORDERED: ACETAMINOPHEN 650 MG/20.3 ML UDC GT PRN (09:30)
[2016-11-24] MEDS ORDERED: LACTULOSE 10 G/15 ML UDC (PYXIS) GT PRN (10:00)
[2016-11-24] MEDS: CALCITRIOL 0.25 MCG CAPSULE GT SCH (10:36)
[2016-11-24] MEDS: DOCUSATE SODIUM LIQ 100 MG/10 ML UDC GT SCH ×2 (10:36→18:09)
[2016-11-24] MEDS: VIT B CMPLX 3/FA/VIT C/BIOTIN 1 TAB TABLET GT SCH (10:36)
[2016-11-24] MEDS: ZINC SULFATE 220 MG CAPSULE GT SCH (10:36)
[2016-11-24] MEDS: BUMETANIDE (1 MG) 1 MG TABLET GT SCH (10:37)
[2016-11-24] MEDS: METOPROLOL TARTRATE 25 MG TABLET PO SCH (10:37)
[2016-11-24] MEDS ORDERED: ONDANSETRON HCL/PF 4 MG/2 ML VIAL IV PRN (11:30)
[2016-11-24] MEDS ORDERED: EPOETIN ALFA (10,000 UNIT) 10,000 UNIT/ML VIAL IV ONE (12:00)
[2016-11-24] MEDS ORDERED: METOCLOPRAMIDE HCL 5 MG/5 ML UDC GT SCH (12:00)
[2016-11-24] MEDS: Z GUARD REMEDY 2 OZ OINT TP SCH (12:56)
[2016-11-24] MEDS: SILDENAFIL CITRATE 20 MG TABLET GT SCH ×2 (13:00→21:00)
[2016-11-24] MEDS ORDERED: METOCLOPRAMIDE HCL 10 MG/10 ML UDC GT SCH (13:49)
[2016-11-24] MEDS: MIDODRINE HCL (5MG) 5 MG TABLET PO SCH ×2 (13:58→21:00)
[2016-11-24] MEDS: SEVELAMER CARBONATE 0.8 GM POWD.PACK GT SCH ×2 (14:02→18:11)
[2016-11-24] MEDS: PROSOURCE / PROSTAT (PYXIS) 30 ML UDC GT SCH ×2 (14:02→18:09)
[2016-11-24] MEDS: NEOMY SULF/BACITRAC ZN/POLY 15 GM TUBE TP SCH (14:02)
[2016-11-24] MEDS ORDERED: PANTOPRAZOLE 40 MG in IV NS 0.9% 100 ML IV SCH (21:00)
[2016-11-24 21:15] LABS: BASOPHILS # (AUTO) 0.1 /CMM (0.0-0.2); BASOPHILS % (AUTO) 0.5 % (0.0-2.0); EOSINOPHILS # (AUTO) 0.2 /CMM (0.0-0.7); EOSINOPHILS % (AUTO) 2.2 % (0.0-6.0); HEMATOCRIT 22 % (33-45); HEMOGLOBIN 7.3 g/dL (11.5-14.8); LYMPHOCYTES # (AUTO) 1.5 /CMM (0.8-4.8); LYMPHOCYTES % (AUTO) 16.1 % (20.0-44.0); MEAN CORPUSCULAR HEMOGLOBIN 32 PG (26.0-33.0); MEAN CORPUSCULAR HGB CONC 33 g/dl (31.0-36.0); MEAN CORPUSCULAR VOLUME 98 fL (82-100); MONOCYTES # (AUTO) 0.8 /CMM (0.1-1.30); MONOCYTES % (AUTO) 8.8 % (2.0-12.0); NEUTROPHILS # (AUTO) 6.7 /CMM (1.8-8.9); NEUTROPHILS % (AUTO) 72.4 % (43.0-81.0); PLATELET COUNT (AUTO) 194 /CMM (150-450); RDW COEFFICIENT OF VARIATION 23.1 (11.5-15.0); RED BLOOD CELL COUNT(AUTO) 2.27 MIL/uL (4.0-5.2); WHITE BLOOD COUNT (AUTO) 9.3 K/uL (4.3-11.0)
[2016-11-24] MEDS ORDERED: IV NS 0.9% 250 ML IV ONE (21:47)
[2016-11-24] MEDS ORDERED: IV SET PRIMARY PUMP SET 1 EA INFUS.SET MC ONE (21:47)
[2016-11-24 22:30] LABS: INR 1.12 (0.87-1.13); PROTHROMBIN TIME 12.1 SECS (9.5-12.7)
[2016-11-24] MEDS ORDERED: LEVETIRACETAM (500MG) 500 MG in IV NS 0.9% 100 ML IV SCH (22:30)
[2016-11-24] MEDS ORDERED: LEVOFLOXACIN 500 MG /D5W 100ML 0 ML IV ONE (22:39)
[2016-11-24] MEDS ORDERED: SECONDARY IV SET 1 EA INFUS.SET MC ONE (22:49)
[2016-11-24] MEDS ORDERED: METOCLOPRAMIDE HCL 10 MG/2 ML VIAL ONE (22:51)
[2016-11-24] MEDS ORDERED: LEVETIRACETAM (500MG) 500 MG/5 ML VIAL IV ONE (22:59)
[2016-11-24] MEDS ORDERED: IV NS 0.9% 100 ML IV ONE (23:02)
[2016-11-24] MEDS: METOCLOPRAMIDE HCL 10 MG/2 ML VIAL IV SCH (23:26)
[2016-11-24] MEDS ORDERED: LEVOFLOXACIN 750 MG /D5W 150ML 750 MG in PREMIX 1 EA IV SCH (23:30)
[2016-11-25] VITALS (15 sets, daily range): BP systolic 85–113; BP diastolic 41–61
[2016-11-25] MEDS ORDERED: LEVOFLOXACIN 750 MG /D5W 150ML 150 ML IV ONE (00:21)
[2016-11-25] MEDS ORDERED: SECONDARY IV SET 1 EA INFUS.SET MC ONE (00:35)
[2016-11-25] MEDS ORDERED: LEVOFLOXACIN 750 MG /D5W 150ML 750 MG in PREMIX 1 EA IV ONE (01:30)
[2016-11-25] MEDS: SILDENAFIL CITRATE 20 MG TABLET GT SCH ×3 (04:39→21:00)
[2016-11-25] MEDS: MIDODRINE HCL (5MG) 5 MG TABLET PO SCH ×3 (04:40→21:00)
[2016-11-25] MEDS ORDERED: METOCLOPRAMIDE HCL 10 MG/2 ML VIAL ONE (05:13)
[2016-11-25] MEDS: METOCLOPRAMIDE HCL 10 MG/2 ML VIAL IV SCH ×4 (05:22→23:47)
[2016-11-25] MEDS: INSULIN REGULAR, HUMAN 100 UNIT/ML 3 ML VIAL SQ PRN (05:32)
[2016-11-25] MEDS: BLOOD SUGAR DIAGNOSTIC 1 EACH STRIP IN SCH ×4 (05:32→23:35)
[2016-11-25 06:33] LABS: BASOPHILS % (AUTO) 0.4 % (0.0-2.0); EOSINOPHILS # (AUTO) 0.1 /CMM (0.0-0.7); EOSINOPHILS % (AUTO) 1.7 % (0.0-6.0); HEMATOCRIT 23 % (33-45); HEMOGLOBIN 7.6 g/dL (11.5-14.8); LYMPHOCYTES # (AUTO) 1.2 /CMM (0.8-4.8); LYMPHOCYTES % (AUTO) 14.6 % (20.0-44.0); MEAN CORPUSCULAR HEMOGLOBIN 33 PG (26.0-33.0); MEAN CORPUSCULAR HGB CONC 33 g/dl (31.0-36.0); MEAN CORPUSCULAR VOLUME 99 fL (82-100); MONOCYTES # (AUTO) 0.8 /CMM (0.1-1.30); MONOCYTES % (AUTO) 9.3 % (2.0-12.0); NEUTROPHILS # (AUTO) 6.2 /CMM (1.8-8.9); PLATELET COUNT (AUTO) 181 /CMM (150-450); RDW COEFFICIENT OF VARIATION 22.8 (11.5-15.0); RED BLOOD CELL COUNT(AUTO) 2.32 MIL/uL (4.0-5.2); WHITE BLOOD COUNT (AUTO) 8.4 K/uL (4.3-11.0)
[2016-11-25 07:24] LABS: CALCIUM, SERUM 8.5 mg/dL (8.5-10.1); CARBON DIOXIDE 26 mmol/L (21-32); CHLORIDE 101 mmol/L (98-107); CREATININE 1.6 mg/dL (0.6-1.3); GLUCOSE 88 mg/dL (74-106); PHOSPHORUS 1.7 mg/dL (2.5-4.9); POTASSIUM 3.7 mmol/L (3.5-5.1); SODIUM SERUM 134 mmol/L (136-145); UREA NITROGEN, BLOOD 36 mg/dL (7-18)
[2016-11-25] MEDS ORDERED: LEVETIRACETAM (500MG) 500 MG in IV NS 0.9% 100 ML IV SCH (07:51)
[2016-11-25] MEDS: PROSOURCE / PROSTAT (PYXIS) 30 ML UDC GT SCH ×3 (08:29→17:00)
[2016-11-25] MEDS: BUMETANIDE (1 MG) 1 MG TABLET GT SCH (08:29)
[2016-11-25] MEDS: VIT B CMPLX 3/FA/VIT C/BIOTIN 1 TAB TABLET GT SCH (08:29)
[2016-11-25] MEDS: DOCUSATE SODIUM LIQ 100 MG/10 ML UDC GT SCH ×2 (08:29→17:00)
[2016-11-25] MEDS: METOPROLOL TARTRATE 25 MG TABLET PO SCH (08:30)
[2016-11-25] MEDS: CALCITRIOL 0.25 MCG CAPSULE GT SCH (08:30)
[2016-11-25] MEDS: SEVELAMER CARBONATE 0.8 GM POWD.PACK GT SCH ×3 (08:30→17:00)
[2016-11-25] MEDS: ZINC SULFATE 220 MG CAPSULE GT SCH (08:30)
[2016-11-25] MEDS: NEOMY SULF/BACITRAC ZN/POLY 15 GM TUBE TP SCH (09:00)
[2016-11-25] MEDS: LEVETIRACETAM (500MG) 500 MG in IV NS 0.9% 100 ML IV SCH ×2 (09:48→21:42)
[2016-11-25] MEDS: Z GUARD REMEDY 2 OZ OINT TP SCH (09:49)
[2016-11-25] MEDS: PANTOPRAZOLE 40 MG VIAL IV SCH ×2 (11:16→21:42)
[2016-11-25] MEDS ORDERED: BLOOD IV SET 1 EA INFUS.SET MC ONE (16:07)
[2016-11-25] MEDS ORDERED: IV NS 0.9% 500 ML IV ONE (16:08)
[2016-11-25] MEDS ORDERED: Sodium Phosphate 15 MMOL in IV D5W 250 ML IV ONE (16:30)
[2016-11-25] MEDS ORDERED: PROPOFOL 20 ML IV ONE (19:43)
[2016-11-25] MEDS: MUPIROCIN OINT 2% 22 GM TUBE SCH (22:09)
[2016-11-26] VITALS: BP 94/48
[2016-11-26 04:00] VITALS: BP 92/53
[2016-11-26] MEDS: SILDENAFIL CITRATE 20 MG TABLET GT SCH ×3 (05:20→20:40)
[2016-11-26] MEDS: RENAL NOVASOURCE 1,000 ML BOTTLE GT PRN (05:20)
[2016-11-26] MEDS: MIDODRINE HCL (5MG) 5 MG TABLET PO SCH ×3 (05:21→20:53)
[2016-11-26] MEDS: BLOOD SUGAR DIAGNOSTIC 1 EACH STRIP IN SCH ×4 (05:21→23:47)
[2016-11-26] MEDS: METOCLOPRAMIDE HCL 10 MG/2 ML VIAL IV SCH ×4 (05:21→23:47)
[2016-11-26] MEDS: BUMETANIDE (1 MG) 1 MG TABLET GT SCH ×2 (05:41→09:20)
[2016-11-26 06:17] LABS: CALCIUM, SERUM 8.8 mg/dL (8.5-10.1); CARBON DIOXIDE 22 mmol/L (21-32); CHLORIDE 105 mmol/L (98-107); CREATININE 1.8 mg/dL (0.6-1.3); GLUCOSE 81 mg/dL (74-106); MAGNESIUM 2.1 mg/dL (1.8-2.4); PHOSPHORUS 2.8 mg/dL (2.5-4.9); POTASSIUM 3.7 mmol/L (3.5-5.1); SODIUM SERUM 138 mmol/L (136-145); UREA NITROGEN, BLOOD 40 mg/dL (7-18)
[2016-11-26 06:26] LABS: BASOPHILS % (AUTO) 0.4 % (0.0-2.0); EOSINOPHILS # (AUTO) 0.1 /CMM (0.0-0.7); EOSINOPHILS % (AUTO) 0.9 % (0.0-6.0); HEMATOCRIT 27 % (33-45); LYMPHOCYTES # (AUTO) 1.3 /CMM (0.8-4.8); LYMPHOCYTES % (AUTO) 12.5 % (20.0-44.0); MEAN CORPUSCULAR HEMOGLOBIN 33 PG (26.0-33.0); MEAN CORPUSCULAR HGB CONC 33 g/dl (31.0-36.0); MEAN CORPUSCULAR VOLUME 99 fL (82-100); MONOCYTES # (AUTO) 0.8 /CMM (0.1-1.30); MONOCYTES % (AUTO) 8.1 % (2.0-12.0); NEUTROPHILS # (AUTO) 7.9 /CMM (1.8-8.9); NEUTROPHILS % (AUTO) 78.1 % (43.0-81.0); PLATELET COUNT (AUTO) 185 /CMM (150-450); RED BLOOD CELL COUNT(AUTO) 2.75 MIL/uL (4.0-5.2); WHITE BLOOD COUNT (AUTO) 10.1 K/uL (4.3-11.0)
[2016-11-26 08:00] VITALS: BP 114/39
[2016-11-26] MEDS: LEVETIRACETAM (500MG) 500 MG in IV NS 0.9% 100 ML IV SCH ×2 (09:00→20:38)
[2016-11-26] MEDS: METOPROLOL TARTRATE 25 MG TABLET PO SCH (09:00)
[2016-11-26] MEDS: VIT B CMPLX 3/FA/VIT C/BIOTIN 1 TAB TABLET GT SCH (09:20)
[2016-11-26] MEDS: SEVELAMER CARBONATE 0.8 GM POWD.PACK GT SCH ×3 (09:20→17:29)
[2016-11-26] MEDS: DOCUSATE SODIUM LIQ 100 MG/10 ML UDC GT SCH ×2 (09:20→17:29)
[2016-11-26] MEDS: ZINC SULFATE 220 MG CAPSULE GT SCH (09:20)
[2016-11-26] MEDS: PANTOPRAZOLE 40 MG VIAL IV SCH (09:21)
[2016-11-26] MEDS: CALCITRIOL 0.25 MCG CAPSULE GT SCH (09:21)
[2016-11-26] MEDS: Z GUARD REMEDY 2 OZ OINT TP SCH (09:29)
[2016-11-26] MEDS: NEOMY SULF/BACITRAC ZN/POLY 15 GM TUBE TP SCH (09:29)
[2016-11-26] MEDS: MUPIROCIN OINT 2% 22 GM TUBE SCH ×2 (09:29→20:39)
[2016-11-26] MEDS: PROSOURCE / PROSTAT (PYXIS) 30 ML UDC GT SCH ×3 (09:29→17:30)
[2016-11-26 12:00] VITALS: BP 87/36
[2016-11-26 16:00] VITALS: BP 97/50
[2016-11-26 20:00] VITALS: BP 100/62
[2016-11-27 00:11] VITALS: BP 109/58
[2016-11-27 04:00] VITALS: BP 116/64
[2016-11-27] MEDS: MIDODRINE HCL (5MG) 5 MG TABLET PO SCH ×3 (05:03→20:33)
[2016-11-27] MEDS: METOCLOPRAMIDE HCL 10 MG/2 ML VIAL IV SCH ×4 (05:04→23:30)
[2016-11-27] MEDS: SILDENAFIL CITRATE 20 MG TABLET GT SCH ×3 (05:04→20:33)
[2016-11-27] MEDS: BLOOD SUGAR DIAGNOSTIC 1 EACH STRIP IN SCH ×4 (05:06→23:30)
[2016-11-27] MEDS: RENAL NOVASOURCE 1,000 ML BOTTLE GT PRN (05:07)
[2016-11-27] MEDS: INSULIN REGULAR, HUMAN 100 UNIT/ML 3 ML VIAL SQ PRN ×2 (05:28→12:58)
[2016-11-27 08:00] VITALS: BP 90/33
[2016-11-27] MEDS: CALCITRIOL 0.25 MCG CAPSULE GT SCH (08:35)
[2016-11-27] MEDS: PANTOPRAZOLE 40 MG/PACK PACK GT SCH (08:35)
[2016-11-27] MEDS: ZINC SULFATE 220 MG CAPSULE GT SCH (08:35)
[2016-11-27] MEDS: VIT B CMPLX 3/FA/VIT C/BIOTIN 1 TAB TABLET GT SCH (08:35)
[2016-11-27] MEDS: SEVELAMER CARBONATE 0.8 GM POWD.PACK GT SCH ×3 (08:35→16:18)
[2016-11-27] MEDS: DOCUSATE SODIUM LIQ 100 MG/10 ML UDC GT SCH ×2 (08:35→16:18)
[2016-11-27] MEDS: METOPROLOL TARTRATE 25 MG TABLET PO SCH (08:38)
[2016-11-27] MEDS: PROSOURCE / PROSTAT (PYXIS) 30 ML UDC GT SCH ×2 (08:39→12:55)
[2016-11-27] MEDS: Z GUARD REMEDY 2 OZ OINT TP SCH (08:40)
[2016-11-27] MEDS: NEOMY SULF/BACITRAC ZN/POLY 15 GM TUBE TP SCH (08:41)
[2016-11-27] MEDS: MUPIROCIN OINT 2% 22 GM TUBE SCH ×2 (08:41→20:34)
[2016-11-27] MEDS ORDERED: MUPI22OI7 (08:43)
[2016-11-27] MEDS ORDERED: ALLA266C2 TP (08:43)
[2016-11-27] MEDS ORDERED: IV SET PRIMARY PUMP SET 1 EA INFUS.SET MC ONE (09:17)
[2016-11-27] MEDS: LEVETIRACETAM (500MG) 500 MG in IV NS 0.9% 100 ML IV SCH ×2 (09:36→20:33)
[2016-11-27 12:00] VITALS: BP 92/38
[2016-11-27 16:00] VITALS: BP_SYST 107; BP_DIAS 42; BP_DIAS 48
[2016-11-27 20:00] VITALS: BP 123/67
[2016-11-28] VITALS (10 sets, daily range): BP systolic 76–110; BP diastolic 38–76
[2016-11-28] MEDS: SILDENAFIL CITRATE 20 MG TABLET GT SCH ×3 (04:32→21:07)
[2016-11-28] MEDS: MIDODRINE HCL (5MG) 5 MG TABLET PO SCH ×3 (04:33→21:09)
[2016-11-28] MEDS: BLOOD SUGAR DIAGNOSTIC 1 EACH STRIP IN SCH ×4 (05:13→23:46)
[2016-11-28] MEDS: METOCLOPRAMIDE HCL 10 MG/2 ML VIAL IV SCH ×4 (05:19→23:45)
[2016-11-28] MEDS ORDERED: VIT B CMPLX 3/FA/VIT C/BIOTIN 1 TAB TABLET PO SCH (09:00)
[2016-11-28] MEDS: METOPROLOL TARTRATE 25 MG TABLET PO SCH (09:00)
[2016-11-28] MEDS: PROSOURCE / PROSTAT (PYXIS) 30 ML UDC GT SCH ×2 (10:03→17:42)
[2016-11-28] MEDS: LEVETIRACETAM (500MG) 500 MG in IV NS 0.9% 100 ML IV SCH ×2 (10:03→21:07)
[2016-11-28] MEDS: BUMETANIDE (1 MG) 1 MG TABLET GT SCH (10:04)
[2016-11-28] MEDS: VIT B CMPLX 3/FA/VIT C/BIOTIN 1 TAB TABLET GT SCH (10:04)
[2016-11-28] MEDS: SEVELAMER CARBONATE 0.8 GM POWD.PACK GT SCH ×3 (10:04→17:41)
[2016-11-28] MEDS: ZINC SULFATE 220 MG CAPSULE GT SCH (10:04)
[2016-11-28] MEDS: PANTOPRAZOLE 40 MG/PACK PACK GT SCH (10:04)
[2016-11-28] MEDS: DOCUSATE SODIUM LIQ 100 MG/10 ML UDC GT SCH ×2 (10:04→17:41)
[2016-11-28] MEDS: CALCITRIOL 0.25 MCG CAPSULE GT SCH (10:04)
[2016-11-28] MEDS: Z GUARD REMEDY 2 OZ OINT TP SCH (10:05)
[2016-11-28] MEDS: MUPIROCIN OINT 2% 22 GM TUBE SCH ×2 (10:05→21:09)
[2016-11-28] MEDS: NEOMY SULF/BACITRAC ZN/POLY 15 GM TUBE TP SCH (10:05)
[2016-11-28] MEDS ORDERED: MISCELLANEOUS MED 1 EA EA XX ONE (19:00)
[2016-11-29] VITALS: BP 96/37
[2016-11-29 04:00] VITALS: BP 94/42
[2016-11-29] MEDS: SILDENAFIL CITRATE 20 MG TABLET GT SCH ×3 (05:00→21:16)
[2016-11-29] MEDS: MIDODRINE HCL (5MG) 5 MG TABLET PO SCH ×3 (05:00→21:17)
[2016-11-29] MEDS: BLOOD SUGAR DIAGNOSTIC 1 EACH STRIP IN SCH ×3 (05:49→18:29)
[2016-11-29] MEDS: METOCLOPRAMIDE HCL 10 MG/2 ML VIAL IV SCH ×3 (05:49→18:29)
[2016-11-29 08:00] VITALS: BP 90/39
[2016-11-29] MEDS: BUMETANIDE (1 MG) 1 MG TABLET GT SCH (08:54)
[2016-11-29] MEDS: CALCITRIOL 0.25 MCG CAPSULE GT SCH (08:54)
[2016-11-29] MEDS: DOCUSATE SODIUM LIQ 100 MG/10 ML UDC GT SCH ×2 (08:54→18:26)
[2016-11-29] MEDS: SEVELAMER CARBONATE 0.8 GM POWD.PACK GT SCH ×3 (08:54→18:29)
[2016-11-29] MEDS: VIT B CMPLX 3/FA/VIT C/BIOTIN 1 TAB TABLET GT SCH (08:54)
[2016-11-29] MEDS: PANTOPRAZOLE 40 MG/PACK PACK GT SCH (08:54)
[2016-11-29] MEDS: PROSOURCE / PROSTAT (PYXIS) 30 ML UDC GT SCH ×2 (08:54→18:29)
[2016-11-29] MEDS: METOPROLOL TARTRATE 25 MG TABLET PO SCH (08:55)
[2016-11-29] MEDS: ZINC SULFATE 220 MG CAPSULE GT SCH (08:55)
[2016-11-29] MEDS: Z GUARD REMEDY 2 OZ OINT TP SCH (09:08)
[2016-11-29] MEDS: LEVETIRACETAM (500MG) 500 MG in IV NS 0.9% 100 ML IV SCH ×2 (09:08→21:17)
[2016-11-29] MEDS: NEOMY SULF/BACITRAC ZN/POLY 15 GM TUBE TP SCH (09:08)
[2016-11-29] MEDS: MUPIROCIN OINT 2% 22 GM TUBE SCH ×2 (09:15→21:18)
[2016-11-29 09:28] LABS: BASOPHILS % (AUTO) 0.4 % (0.0-2.0); EOSINOPHILS # (AUTO) 0.3 /CMM (0.0-0.7); EOSINOPHILS % (AUTO) 3.6 % (0.0-6.0); HEMATOCRIT 27 % (33-45); HEMOGLOBIN 8.9 g/dL (11.5-14.8); LYMPHOCYTES # (AUTO) 1.5 /CMM (0.8-4.8); LYMPHOCYTES % (AUTO) 19.8 % (20.0-44.0); MEAN CORPUSCULAR HEMOGLOBIN 32 PG (26.0-33.0); MEAN CORPUSCULAR HGB CONC 33 g/dl (31.0-36.0); MEAN CORPUSCULAR VOLUME 99 fL (82-100); MONOCYTES # (AUTO) 0.7 /CMM (0.1-1.30); MONOCYTES % (AUTO) 9.1 % (2.0-12.0); NEUTROPHILS # (AUTO) 5.2 /CMM (1.8-8.9); NEUTROPHILS % (AUTO) 67.1 % (43.0-81.0); PLATELET COUNT (AUTO) 199 /CMM (150-450); RDW COEFFICIENT OF VARIATION 22.4 (11.5-15.0); RED BLOOD CELL COUNT(AUTO) 2.75 MIL/uL (4.0-5.2); WHITE BLOOD COUNT (AUTO) 7.7 K/uL (4.3-11.0)
[2016-11-29 09:38] LABS: CALCIUM, SERUM 8.5 mg/dL (8.5-10.1); CARBON DIOXIDE 32 mmol/L (21-32); CHLORIDE 106 mmol/L (98-107); CREATININE 1.3 mg/dL (0.6-1.3); GLUCOSE 90 mg/dL (74-106); POTASSIUM 3.5 mmol/L (3.5-5.1); SODIUM SERUM 140 mmol/L (136-145); UREA NITROGEN, BLOOD 41 mg/dL (7-18)
[2016-11-29 10:13] LABS: MAGNESIUM 1.8 mg/dL (1.8-2.4); PHOSPHORUS 2.3 mg/dL (2.5-4.9)
[2016-11-29] MEDS ORDERED: ROCURONIUM BROMIDE 50 MG/5 ML ONE (10:38)
[2016-11-29 12:00] VITALS: BP 96/31
[2016-11-29] MEDS ORDERED: ANESTHESIA TRAY IN PYXIS 1 EA TRAY MC ONE (13:10)
[2016-11-29] MEDS: RENAL NOVASOURCE 1,000 ML BOTTLE GT PRN (13:57)
[2016-11-29 16:00] VITALS: BP_SYST 84; BP_SYST 86; BP_DIAS 34; BP_DIAS 42
[2016-11-29 20:00] VITALS: BP_SYST 132; BP_SYST 90; BP_DIAS 45; BP_DIAS 87
[2016-11-30] VITALS (7 sets, daily range): BP systolic 83–115; BP diastolic 37–48
[2016-11-30] MEDS: METOCLOPRAMIDE HCL 10 MG/2 ML VIAL IV SCH ×5 (00:35→23:21)
[2016-11-30] MEDS: BLOOD SUGAR DIAGNOSTIC 1 EACH STRIP IN SCH ×5 (00:39→23:22)
[2016-11-30] MEDS: SILDENAFIL CITRATE 20 MG TABLET GT SCH ×3 (05:30→20:51)
[2016-11-30] MEDS: MIDODRINE HCL (5MG) 5 MG TABLET PO SCH ×3 (05:31→20:50)
[2016-11-30] MEDS: INSULIN REGULAR, HUMAN 100 UNIT/ML 3 ML VIAL SQ PRN (05:39)
[2016-11-30] MEDS: SEVELAMER CARBONATE 0.8 GM POWD.PACK GT SCH ×3 (08:31→16:15)
[2016-11-30] MEDS: BUMETANIDE (1 MG) 1 MG TABLET GT SCH (08:31)
[2016-11-30] MEDS: ZINC SULFATE 220 MG CAPSULE GT SCH (08:31)
[2016-11-30] MEDS: DOCUSATE SODIUM LIQ 100 MG/10 ML UDC GT SCH ×2 (08:31→16:15)
[2016-11-30] MEDS: CALCITRIOL 0.25 MCG CAPSULE GT SCH (08:31)
[2016-11-30] MEDS: VIT B CMPLX 3/FA/VIT C/BIOTIN 1 TAB TABLET GT SCH (08:31)
[2016-11-30] MEDS: Z GUARD REMEDY 2 OZ OINT TP SCH (08:32)
[2016-11-30] MEDS: METOPROLOL TARTRATE 25 MG TABLET PO SCH (08:32)
[2016-11-30] MEDS: PANTOPRAZOLE 40 MG VIAL IV SCH (08:32)
[2016-11-30] MEDS: MUPIROCIN OINT 2% 22 GM TUBE SCH ×2 (08:33→20:52)
[2016-11-30] MEDS: PROSOURCE / PROSTAT (PYXIS) 30 ML UDC GT SCH ×2 (08:35→16:16)
[2016-11-30] MEDS: LEVETIRACETAM (500MG) 500 MG in IV NS 0.9% 100 ML IV SCH ×2 (08:54→20:51)
[2016-11-30] MEDS: NEOMY SULF/BACITRAC ZN/POLY 15 GM TUBE TP SCH (16:16)
[2016-11-30] MEDS: RENAL NOVASOURCE 1,000 ML BOTTLE GT PRN (23:21)
[2016-12-01] VITALS (8 sets, daily range): BP systolic 92–102; BP diastolic 27–50
[2016-12-01] MEDS: SILDENAFIL CITRATE 20 MG TABLET GT SCH ×3 (05:11→20:33)
[2016-12-01] MEDS: METOCLOPRAMIDE HCL 10 MG/2 ML VIAL IV SCH ×3 (05:11→18:01)
[2016-12-01] MEDS: BLOOD SUGAR DIAGNOSTIC 1 EACH STRIP IN SCH ×3 (05:12→17:41)
[2016-12-01] MEDS: MIDODRINE HCL (5MG) 5 MG TABLET PO SCH ×3 (05:17→20:33)
[2016-12-01] MEDS: SEVELAMER CARBONATE 0.8 GM POWD.PACK GT SCH ×3 (08:53→18:01)
[2016-12-01] MEDS: CALCITRIOL 0.25 MCG CAPSULE GT SCH (08:53)
[2016-12-01] MEDS: ZINC SULFATE 220 MG CAPSULE GT SCH (08:53)
[2016-12-01] MEDS: BUMETANIDE (1 MG) 1 MG TABLET GT SCH (08:53)
[2016-12-01] MEDS: PANTOPRAZOLE 40 MG VIAL IV SCH (08:53)
[2016-12-01] MEDS: VIT B CMPLX 3/FA/VIT C/BIOTIN 1 TAB TABLET GT SCH (08:53)
[2016-12-01] MEDS: METOPROLOL TARTRATE 25 MG TABLET PO SCH (08:55)
[2016-12-01] MEDS: Z GUARD REMEDY 2 OZ OINT TP SCH (08:57)
[2016-12-01] MEDS: MUPIROCIN OINT 2% 22 GM TUBE SCH ×2 (08:58→20:36)
[2016-12-01] MEDS: NEOMY SULF/BACITRAC ZN/POLY 15 GM TUBE TP SCH (08:58)
[2016-12-01] MEDS: PROSOURCE / PROSTAT (PYXIS) 30 ML UDC GT SCH ×2 (08:59→18:02)
[2016-12-01] MEDS: LEVETIRACETAM (500MG) 500 MG in IV NS 0.9% 100 ML IV SCH (09:19)
[2016-12-01] MEDS: DOCUSATE SODIUM LIQ 100 MG/10 ML UDC GT SCH ×2 (09:19→18:01)
[2016-12-01] MEDS: INSULIN REGULAR, HUMAN 100 UNIT/ML 3 ML VIAL SQ PRN ×2 (14:15→17:56)
[2016-12-01] MEDS: LEVETIRACETAM SOL (5 ML) 100 MG/ML UDC GT SCH (20:33)
[2016-12-02] VITALS: BP 102/37
[2016-12-02] MEDS: BLOOD SUGAR DIAGNOSTIC 1 EACH STRIP IN SCH ×4 (00:46→17:30)
[2016-12-02] MEDS: METOCLOPRAMIDE HCL 10 MG/2 ML VIAL IV SCH ×4 (00:47→17:30)
[2016-12-02 04:00] VITALS: BP 93/44
[2016-12-02] MEDS: SILDENAFIL CITRATE 20 MG TABLET GT SCH ×3 (05:37→21:29)
[2016-12-02] MEDS: MIDODRINE HCL (5MG) 5 MG TABLET PO SCH ×3 (05:37→21:29)
[2016-12-02 08:00] VITALS: BP 83/44
[2016-12-02] MEDS: NEOMY SULF/BACITRAC ZN/POLY 15 GM TUBE TP SCH (09:00)
[2016-12-02] MEDS: VIT B CMPLX 3/FA/VIT C/BIOTIN 1 TAB TABLET GT SCH (10:42)
[2016-12-02] MEDS: DOCUSATE SODIUM LIQ 100 MG/10 ML UDC GT SCH ×2 (10:42→17:30)
[2016-12-02] MEDS: BUMETANIDE (1 MG) 1 MG TABLET GT SCH (10:42)
[2016-12-02] MEDS: CALCITRIOL 0.25 MCG CAPSULE GT SCH (10:42)
[2016-12-02] MEDS: Z GUARD REMEDY 2 OZ OINT TP SCH (10:42)
[2016-12-02] MEDS: SEVELAMER CARBONATE 0.8 GM POWD.PACK GT SCH ×3 (10:42→17:30)
[2016-12-02] MEDS: METOPROLOL TARTRATE 25 MG TABLET PO SCH (10:42)
[2016-12-02] MEDS: MUPIROCIN OINT 2% 22 GM TUBE SCH ×2 (10:42→21:30)
[2016-12-02] MEDS: ZINC SULFATE 220 MG CAPSULE GT SCH (10:42)
[2016-12-02] MEDS: PROSOURCE / PROSTAT (PYXIS) 30 ML UDC GT SCH ×2 (10:43→17:30)
[2016-12-02] MEDS: PANTOPRAZOLE 40 MG VIAL IV SCH (10:47)
[2016-12-02] MEDS: LEVETIRACETAM SOL (5 ML) 100 MG/ML UDC GT SCH ×2 (10:48→21:28)
[2016-12-02 12:00] VITALS: BP 86/42
[2016-12-02 16:00] VITALS: BP 96/53
[2016-12-02] MEDS: RENAL NOVASOURCE 1,000 ML BOTTLE GT PRN (17:30)
[2016-12-02 20:00] VITALS: BP 82/43
[2016-12-03] VITALS: BP 80/37
[2016-12-03] MEDS: METOCLOPRAMIDE HCL 10 MG/2 ML VIAL IV SCH ×4 (00:21→17:31)
[2016-12-03] MEDS: BLOOD SUGAR DIAGNOSTIC 1 EACH STRIP IN SCH ×4 (00:28→17:31)
[2016-12-03 04:00] VITALS: BP 82/43
[2016-12-03] MEDS: MIDODRINE HCL (5MG) 5 MG TABLET PO SCH ×3 (04:42→20:38)
[2016-12-03] MEDS: SILDENAFIL CITRATE 20 MG TABLET GT SCH ×3 (04:42→20:38)
[2016-12-03 07:53] LABS: BASOPHILS % (AUTO) 0.6 % (0.0-2.0); EOSINOPHILS # (AUTO) 0.2 /CMM (0.0-0.7); HEMATOCRIT 29 % (33-45); HEMOGLOBIN 9.6 g/dL (11.5-14.8); LYMPHOCYTES # (AUTO) 1.6 /CMM (0.8-4.8); MEAN CORPUSCULAR HEMOGLOBIN 33 PG (26.0-33.0); MEAN CORPUSCULAR HGB CONC 34 g/dl (31.0-36.0); MEAN CORPUSCULAR VOLUME 98 fL (82-100); MONOCYTES # (AUTO) 0.7 /CMM (0.1-1.30); MONOCYTES % (AUTO) 8.4 % (2.0-12.0); NEUTROPHILS # (AUTO) 5.6 /CMM (1.8-8.9); PLATELET COUNT (AUTO) 188 /CMM (150-450); RDW COEFFICIENT OF VARIATION 20.3 (11.5-15.0); RED BLOOD CELL COUNT(AUTO) 2.93 MIL/uL (4.0-5.2); WHITE BLOOD COUNT (AUTO) 8.2 K/uL (4.3-11.0)
[2016-12-03 08:00] VITALS: BP 96/55
[2016-12-03 08:02] LABS: INR 1.09 (0.87-1.13); PROTHROMBIN TIME 11.7 SECS (9.5-12.7)
[2016-12-03 08:13] LABS: CALCIUM, SERUM 8.3 mg/dL (8.5-10.1); CARBON DIOXIDE 29 mmol/L (21-32); CHLORIDE 102 mmol/L (98-107); CREATININE 1.3 mg/dL (0.6-1.3); GLUCOSE 120 mg/dL (74-106); MAGNESIUM 1.9 mg/dL (1.8-2.4); PHOSPHORUS 2.6 mg/dL (2.5-4.9); POTASSIUM 3.5 mmol/L (3.5-5.1); SODIUM SERUM 137 mmol/L (136-145); UREA NITROGEN, BLOOD 41 mg/dL (7-18)
[2016-12-03] MEDS: SEVELAMER CARBONATE 0.8 GM POWD.PACK GT SCH ×3 (08:48→17:31)
[2016-12-03] MEDS: PROSOURCE / PROSTAT (PYXIS) 30 ML UDC GT SCH ×2 (08:48→17:32)
[2016-12-03] MEDS: BUMETANIDE (1 MG) 1 MG TABLET GT SCH (08:49)
[2016-12-03] MEDS: DOCUSATE SODIUM LIQ 100 MG/10 ML UDC GT SCH ×2 (08:49→17:31)
[2016-12-03] MEDS: CALCITRIOL 0.25 MCG CAPSULE GT SCH (08:49)
[2016-12-03] MEDS: PANTOPRAZOLE 40 MG VIAL IV SCH (08:49)
[2016-12-03] MEDS: LEVETIRACETAM SOL (5 ML) 100 MG/ML UDC GT SCH ×2 (08:49→20:36)
[2016-12-03] MEDS: ZINC SULFATE 220 MG CAPSULE GT SCH (08:49)
[2016-12-03] MEDS: METOPROLOL TARTRATE 25 MG TABLET PO SCH (08:50)
[2016-12-03] MEDS: VIT B CMPLX 3/FA/VIT C/BIOTIN 1 TAB TABLET GT SCH (09:00)
[2016-12-03] MEDS: MUPIROCIN OINT 2% 22 GM TUBE SCH ×2 (09:37→20:36)
[2016-12-03] MEDS: Z GUARD REMEDY 2 OZ OINT TP SCH (09:38)
[2016-12-03] MEDS: NEOMY SULF/BACITRAC ZN/POLY 15 GM TUBE TP SCH (09:38)
[2016-12-03 12:00] VITALS: BP_SYST 108; BP_SYST 18; BP_DIAS 53
[2016-12-03] MEDS: INSULIN REGULAR, HUMAN 100 UNIT/ML 3 ML VIAL SQ PRN (12:38)
[2016-12-03 16:00] VITALS: BP 94/51
[2016-12-03 20:00] VITALS: BP_SYST 94; BP_SYST 97; BP_DIAS 47; BP_DIAS 51
[2016-12-04] VITALS (7 sets, daily range): BP systolic 80–104; BP diastolic 37–62
[2016-12-04] MEDS: METOCLOPRAMIDE HCL 10 MG/2 ML VIAL IV SCH ×4 (00:25→17:24)
[2016-12-04] MEDS: BLOOD SUGAR DIAGNOSTIC 1 EACH STRIP IN SCH ×4 (00:25→17:24)
[2016-12-04] MEDS: SILDENAFIL CITRATE 20 MG TABLET GT SCH ×3 (05:42→21:07)
[2016-12-04] MEDS: MIDODRINE HCL (5MG) 5 MG TABLET PO SCH ×3 (05:43→21:08)
[2016-12-04] MEDS: RENAL NOVASOURCE 1,000 ML BOTTLE GT PRN (05:46)
[2016-12-04] MEDS: BUMETANIDE (1 MG) 1 MG TABLET GT SCH (08:02)
[2016-12-04] MEDS: PANTOPRAZOLE 40 MG VIAL IV SCH (08:02)
[2016-12-04] MEDS: ZINC SULFATE 220 MG CAPSULE GT SCH (08:02)
[2016-12-04] MEDS: LEVETIRACETAM SOL (5 ML) 100 MG/ML UDC GT SCH ×2 (08:02→21:07)
[2016-12-04] MEDS: DOCUSATE SODIUM LIQ 100 MG/10 ML UDC GT SCH ×2 (08:02→17:24)
[2016-12-04] MEDS: CALCITRIOL 0.25 MCG CAPSULE GT SCH (08:02)
[2016-12-04] MEDS: SEVELAMER CARBONATE 0.8 GM POWD.PACK GT SCH ×3 (08:02→17:24)
[2016-12-04] MEDS: VIT B CMPLX 3/FA/VIT C/BIOTIN 1 TAB TABLET GT SCH (08:02)
[2016-12-04] MEDS: METOPROLOL TARTRATE 25 MG TABLET PO SCH (08:03)
[2016-12-04] MEDS: MUPIROCIN OINT 2% 22 GM TUBE SCH ×2 (08:04→21:09)
[2016-12-04] MEDS: Z GUARD REMEDY 2 OZ OINT TP SCH (08:04)
[2016-12-04] MEDS: NEOMY SULF/BACITRAC ZN/POLY 15 GM TUBE TP SCH (08:04)
[2016-12-04] MEDS: PROSOURCE / PROSTAT (PYXIS) 30 ML UDC GT SCH ×2 (08:05→17:24)
[2016-12-05] VITALS: BP 97/57
[2016-12-05] MEDS: METOCLOPRAMIDE HCL 10 MG/2 ML VIAL IV SCH ×4 (00:15→17:53)
[2016-12-05] MEDS: BLOOD SUGAR DIAGNOSTIC 1 EACH STRIP IN SCH ×4 (00:15→17:06)
[2016-12-05 04:00] VITALS: BP 90/53
[2016-12-05] MEDS: MIDODRINE HCL (5MG) 5 MG TABLET PO SCH ×3 (05:08→21:40)
[2016-12-05] MEDS: SILDENAFIL CITRATE 20 MG TABLET GT SCH ×4 (05:08→21:39)
[2016-12-05] MEDS: RENAL NOVASOURCE 1,000 ML BOTTLE GT PRN (05:09)
[2016-12-05 08:00] VITALS: BP_SYST 141; BP_SYST 96; BP_DIAS 49; BP_DIAS 63
[2016-12-05] MEDS: METOPROLOL TARTRATE 25 MG TABLET PO SCH (09:00)
[2016-12-05] MEDS: LEVETIRACETAM SOL (5 ML) 100 MG/ML UDC GT SCH ×2 (09:02→21:39)
[2016-12-05] MEDS: SEVELAMER CARBONATE 0.8 GM POWD.PACK GT SCH ×3 (09:02→17:06)
[2016-12-05] MEDS: CALCITRIOL 0.25 MCG CAPSULE GT SCH (09:02)
[2016-12-05] MEDS: BUMETANIDE (1 MG) 1 MG TABLET GT SCH (09:02)
[2016-12-05] MEDS: DOCUSATE SODIUM LIQ 100 MG/10 ML UDC GT SCH ×2 (09:02→17:06)
[2016-12-05] MEDS: VIT B CMPLX 3/FA/VIT C/BIOTIN 1 TAB TABLET GT SCH (09:02)
[2016-12-05] MEDS: ZINC SULFATE 220 MG CAPSULE GT SCH (09:02)
[2016-12-05] MEDS: PROSOURCE / PROSTAT (PYXIS) 30 ML UDC GT SCH ×2 (09:03→17:06)
[2016-12-05] MEDS: PANTOPRAZOLE 40 MG VIAL IV SCH (09:06)
[2016-12-05] MEDS: Z GUARD REMEDY 2 OZ OINT TP SCH (09:07)
[2016-12-05] MEDS: MUPIROCIN OINT 2% 22 GM TUBE SCH ×2 (09:08→21:39)
[2016-12-05] MEDS: NEOMY SULF/BACITRAC ZN/POLY 15 GM TUBE TP SCH (09:08)
[2016-12-05 12:00] VITALS: BP 92/26
[2016-12-05 16:00] VITALS: BP 94/40
[2016-12-05 20:00] VITALS: BP 90/56
[2016-12-06] VITALS (7 sets, daily range): BP systolic 89–99; BP diastolic 33–43
[2016-12-06] MEDS: METOCLOPRAMIDE HCL 10 MG/2 ML VIAL IV SCH ×4 (00:04→18:25)
[2016-12-06] MEDS: BLOOD SUGAR DIAGNOSTIC 1 EACH STRIP IN SCH ×3 (00:04→11:29)
[2016-12-06] MEDS: RENAL NOVASOURCE 1,000 ML BOTTLE GT PRN (05:34)
[2016-12-06] MEDS: SILDENAFIL CITRATE 20 MG TABLET GT SCH ×3 (05:34→21:45)
[2016-12-06] MEDS: MIDODRINE HCL (5MG) 5 MG TABLET PO SCH ×3 (05:34→21:47)
[2016-12-06 06:30] LABS: BASOPHILS % (AUTO) 0.4 % (0.0-2.0); EOSINOPHILS # (AUTO) 0.3 /CMM (0.0-0.7); EOSINOPHILS % (AUTO) 2.9 % (0.0-6.0); HEMATOCRIT 29 % (33-45); HEMOGLOBIN 9.6 g/dL (11.5-14.8); LYMPHOCYTES # (AUTO) 1.6 /CMM (0.8-4.8); MEAN CORPUSCULAR HEMOGLOBIN 33 PG (26.0-33.0); MEAN CORPUSCULAR HGB CONC 33 g/dl (31.0-36.0); MEAN CORPUSCULAR VOLUME 98 fL (82-100); MONOCYTES # (AUTO) 0.7 /CMM (0.1-1.30); MONOCYTES % (AUTO) 8.4 % (2.0-12.0); NEUTROPHILS # (AUTO) 6.2 /CMM (1.8-8.9); NEUTROPHILS % (AUTO) 70.3 % (43.0-81.0); PLATELET COUNT (AUTO) 174 /CMM (150-450); RDW COEFFICIENT OF VARIATION 19.1 (11.5-15.0); RED BLOOD CELL COUNT(AUTO) 2.97 MIL/uL (4.0-5.2); WHITE BLOOD COUNT (AUTO) 8.9 K/uL (4.3-11.0)
[2016-12-06 06:41] LABS: ALANINE AMINOTRANSFERASE 20 U/L (12-78); ALBUMIN 2.1 g/dL (3.4-5.0); ALKALINE PHOSPHATASE 226 U/L (46-116); ASPARTATE AMINOTRANSFERASE 24 U/L (15-37); BILIRUBIN,TOTAL 0.4 mg/dL (0.2-1.0); CALCIUM, SERUM 8.5 mg/dL (8.5-10.1); CARBON DIOXIDE 31 mmol/L (21-32); CHLORIDE 96 mmol/L (98-107); CREATININE 1.4 mg/dL (0.6-1.3); GLUCOSE 109 mg/dL (74-106); MAGNESIUM 2.1 mg/dL (1.8-2.4); PHOSPHORUS 2.9 mg/dL (2.5-4.9); POTASSIUM 3.4 mmol/L (3.5-5.1); SODIUM SERUM 130 mmol/L (136-145); TOTAL PROTEIN, SERUM 5.9 g/dL (6.4-8.2); UREA NITROGEN, BLOOD 63 mg/dL (7-18)
[2016-12-06] MEDS: PANTOPRAZOLE 40 MG VIAL IV SCH (08:20)
[2016-12-06] MEDS: DOCUSATE SODIUM LIQ 100 MG/10 ML UDC GT SCH ×2 (08:20→16:57)
[2016-12-06] MEDS: LEVETIRACETAM SOL (5 ML) 100 MG/ML UDC GT SCH ×2 (08:20→21:48)
[2016-12-06] MEDS: ZINC SULFATE 220 MG CAPSULE GT SCH (08:20)
[2016-12-06] MEDS: CALCITRIOL 0.25 MCG CAPSULE GT SCH (08:20)
[2016-12-06] MEDS: VIT B CMPLX 3/FA/VIT C/BIOTIN 1 TAB TABLET GT SCH (08:20)
[2016-12-06] MEDS: SEVELAMER CARBONATE 0.8 GM POWD.PACK GT SCH ×3 (08:20→16:57)
[2016-12-06] MEDS: NEOMY SULF/BACITRAC ZN/POLY 15 GM TUBE TP SCH (08:21)
[2016-12-06] MEDS: HYDROGEL DRESSING 90 GM TUBE TP SCH (08:21)
[2016-12-06] MEDS: Z GUARD REMEDY 2 OZ OINT TP SCH (08:21)
[2016-12-06] MEDS: BUMETANIDE (1 MG) 1 MG TABLET GT SCH (08:21)
[2016-12-06] MEDS: METOPROLOL TARTRATE 25 MG TABLET PO SCH (08:21)
[2016-12-06] MEDS: MUPIROCIN OINT 2% 22 GM TUBE SCH ×2 (08:21→21:53)
[2016-12-06] MEDS: PROSOURCE / PROSTAT (PYXIS) 30 ML UDC GT SCH ×2 (08:22→16:58)
[2016-12-06] MEDS ORDERED: POTASSIUM CHLORIDE 20 MEQ POWDER PACKET GT SCH (12:00)
[2016-12-06] MEDS ORDERED: HYDROCORTISONE 0.5% CREAM 28.35 GM TUBE TP PRN (17:00)
[2016-12-07] VITALS: BP 87/36
[2016-12-07] MEDS: METOCLOPRAMIDE HCL 10 MG/2 ML VIAL IV SCH ×4 (00:18→18:01)
[2016-12-07 04:00] VITALS: BP 95/47
[2016-12-07] MEDS: SILDENAFIL CITRATE 20 MG TABLET GT SCH ×2 (05:02→13:00)
[2016-12-07] MEDS: MIDODRINE HCL (5MG) 5 MG TABLET PO SCH ×2 (05:02→14:39)
[2016-12-07] MEDS: RENAL NOVASOURCE 1,000 ML BOTTLE GT PRN (05:48)
[2016-12-07 08:00] VITALS: BP 86/30
[2016-12-07 08:03] LABS: CALCIUM, SERUM 8.4 mg/dL (8.5-10.1); CARBON DIOXIDE 30 mmol/L (21-32); CHLORIDE 103 mmol/L (98-107); CREATININE 1.3 mg/dL (0.6-1.3); GLUCOSE 114 mg/dL (74-106); POTASSIUM 4.7 mmol/L (3.5-5.1); SODIUM SERUM 138 mmol/L (136-145); UREA NITROGEN, BLOOD 49 mg/dL (7-18)
[2016-12-07] MEDS: PANTOPRAZOLE 40 MG VIAL IV SCH (11:24)
[2016-12-07] MEDS: VIT B CMPLX 3/FA/VIT C/BIOTIN 1 TAB TABLET GT SCH (11:24)
[2016-12-07] MEDS: LEVETIRACETAM SOL (5 ML) 100 MG/ML UDC GT SCH (11:25)
[2016-12-07] MEDS: ZINC SULFATE 220 MG CAPSULE GT SCH (11:25)
[2016-12-07] MEDS: PROSOURCE / PROSTAT (PYXIS) 30 ML UDC GT SCH ×2 (11:25→18:01)
[2016-12-07] MEDS: DOCUSATE SODIUM LIQ 100 MG/10 ML UDC GT SCH ×2 (11:25→18:01)
[2016-12-07] MEDS: SEVELAMER CARBONATE 0.8 GM POWD.PACK GT SCH ×3 (11:25→18:02)
[2016-12-07] MEDS: CALCITRIOL 0.25 MCG CAPSULE GT SCH (11:25)
[2016-12-07] MEDS: HYDROGEL DRESSING 90 GM TUBE TP SCH (11:42)
[2016-12-07] MEDS: MUPIROCIN OINT 2% 22 GM TUBE SCH (11:42)
[2016-12-07] MEDS: NEOMY SULF/BACITRAC ZN/POLY 15 GM TUBE TP SCH (11:43)
[2016-12-07] MEDS: Z GUARD REMEDY 2 OZ OINT TP SCH (11:43)
[2016-12-07 12:00] VITALS: BP 102/44
[2016-12-07 16:00] VITALS: BP 95/40
[2016-12-08] MEDS ORDERED: PANTOPRAZOLE 40 MG/PACK PACK GT SCH (09:00)
== END 2016-12-07 19:55 | DRG 981 ==
LOC: ER 16:59 → MED 20:26 → TELE-TD 21:00 → TELE1 11-24 10:21
PROVIDERS: ADMIT Internal Medicine Nephrology; ATTEND Internal Medicine Nephrology
PROC: 5A1945Z Respiratory Ventilation, 24-96 Consecutive Hours (ICD-10-PCS; principal; 2016-11-23)
PROC: 5A1D60Z (ICD-10-PCS; 2016-11-24)
PROC: 0W9G3ZZ Drainage of Peritoneal Cavity, Percutaneous Approach (ICD-10-PCS; 2016-11-24)
PROC: 0W3P8ZZ Control Bleeding in Gastrointestinal Tract, Via Natural or Artificial Opening Endoscopic (ICD-10-PCS; 2016-11-25)
PROC: 30233N1 Transfusion of Nonautologous Red Blood Cells into Peripheral Vein, Percutaneous Approach (ICD-10-PCS; 2016-11-25)
PROC: 0KBP0ZZ Excision of Left Hip Muscle, Open Approach (ICD-10-PCS; 2016-11-29)
PROC: 0KBN0ZZ Excision of Right Hip Muscle, Open Approach (ICD-10-PCS; 2016-11-29)
PROC: 0D2DXUZ Change Feeding Device in Lower Intestinal Tract, External Approach (ICD-10-PCS; 2016-11-29)
PROC: 0W9G3ZZ Drainage of Peritoneal Cavity, Percutaneous Approach (ICD-10-PCS; 2016-12-02)
PROC: 0W9G3ZZ Drainage of Peritoneal Cavity, Percutaneous Approach (ICD-10-PCS; 2016-12-07)
DX: K74.60 Unspecified cirrhosis of liver (principal); N18.6 End stage renal disease; L89.154 Pressure ulcer of sacral region, stage 4; K25.4 Chronic or unspecified gastric ulcer with hemorrhage; J96.11 Chronic respiratory failure with hypoxia; Z99.11 Dependence on respirator [ventilator] status; I12.0 Hypertensive chronic kidney disease with stage 5 chronic kidney disease or end stage renal disease; J90 Pleural effusion, not elsewhere classified; K94.13 Enterostomy malfunction; R18.8 Other ascites; Z99.2 Dependence on renal dialysis; Z86.73 Personal history of transient ischemic attack (TIA), and cerebral infarction without residual deficits; Z93.0 Tracheostomy status; E11.22 Type 2 diabetes mellitus with diabetic chronic kidney disease; E78.5 Hyperlipidemia, unspecified; I27.2 Other secondary pulmonary hypertension; I48.91 Unspecified atrial fibrillation; K21.9 Gastro-esophageal reflux disease without esophagitis; D64.9 Anemia, unspecified; R13.10 Dysphagia, unspecified; L98.8 Other specified disorders of the skin and subcutaneous tissue; L89.152 Pressure ulcer of sacral region, stage 2; L89.621 Pressure ulcer of left heel, stage 1; L89.611 Pressure ulcer of right heel, stage 1; Y84.9 Medical procedure, unspecified as the cause of abnormal reaction of the patient, or of later complication, without mention of misadventure at the time of the procedure; Y82.9 Unspecified medical devices associated with adverse incidents; Y92.129 Unspecified place in nursing home as the place of occurrence of the external cause; Y83.3 Surgical operation with formation of external stoma as the cause of abnormal reaction of the patient, or of later complication, without mention of misadventure at the time of the procedure; Z79.899 Other long term (current) drug therapy; Z66 Do not resuscitate
CPT/HCPCS: 31720; 36415; 43235; 71010-TC; 76942-TC; 80048-TC; 80053-TC; 80076-TC; 82962-TC; 83690-TC; 83735-TC; 83880; 84100-TC; 85025-TC; 85610-TC; 85730-TC; 86850-TC; 86921-TC; 87081-TC; 90935-TC; 94002-TC; 94003-TC; 94760-TC; 94762-TC; A4216; A4217; A4606; A6248; A6253; A6402; A6403; A7526; A9563; C9113; J0885; J1815; J1953; J1956; J2405; J2704; J2765; J7030; J7040; J7050; J7060; J8597; P9016-BL; Z7610

== ENCOUNTER 2016-12-13 12:28 | Inpatient (IN) | payer MEDICARE, OTHER ==
[~2016-12-13] VITALS: Ht 157.5 cm; Wt 64.0 kg
[~2016-12-13 12:28] MED LIST changes: -ALBU2.5V13 IH; -ASCO500S2 GT; -IPRA0.2S9 IH; -MERO500V3 IV; +SEVE0.8P GT
--- NOTE | 2016-12-13 12:35 | NUR ---
PATIENT BIB RA FROM SNF D/T COFFEE GROUND EMESIS THIS MORNING. PATIENT IS VENT/TRACH DEPENDENT. A/OX 1-2. VITALS REMAIN STABLE. NO SOB. SAFETY AND COMFORT MEASURES IN PLACE. AWAITING MD ORDERS.
[2016-12-13 12:53] VITALS: BP 116/55
--- NOTE | 2016-12-13 12:59 | NUR ---
PT RECEIVED BY PARAMEDICS TRACHED W/ PORTEX 8, PLACED ON HOSPITAL VENT W/ SETTING AC 450 30% PEEP 5, PER HOME SETTINGS. SPO2 @ 95-97%. TRACH TUBE INTACT, CLEAN AND PATENT. BREATH SOUNDS EQUAL, DIMINISHED W/ SOME RHONCHI. VENT IN RED OUTLET, VENT ALARMS CHECKED AND AUDIBLE. PT SX'ED AND LAVAGED PRN TO MODERATE AMOUNTS OF THICK PALE YELLOW SECRETIONS.
[2016-12-13] MEDS ORDERED: IV NS 0.9% 500 ML BAG IV ONE (13:00)
--- NOTE | 2016-12-13 13:00 | NUR ---
PT RECEIVED BY PARAMEDICS TRACHED W/ PORTEX 8, PLACED ON HOSPITAL VENT W/ SETTING AC 14 500 40% PEEP 5, PER HOME SETTINGS. SPO2 @ 97-100%. TRACH TUBE INTACT, CLEAN AND PATENT. BREATH SOUNDS EQUAL, DIMINISHED W/ SOME RHONCHI. VENT IN RED OUTLET, VENT ALARMS CHECKED AND AUDIBLE. PT SX'ED AND LAVAGED PRN TO MODERATE AMOUNTS OF THICK PALE YELLOW SECRETIONS. Addendum: 12/13/16 at 1301 by LIDIA HUMPHREY RT Amended: Links added.
--- NOTE | 2016-12-13 13:05 | NUR ---
NEW IV STARTED ON RFA, 20 G. BLOOD DRAWN AND SENT TO LAB.
[2016-12-13 13:07] LABS: BASOPHILS # (AUTO) 0.1 /CMM (0.0-0.2); BASOPHILS % (AUTO) 0.8 % (0.0-2.0); EOSINOPHILS # (AUTO) 0.2 /CMM (0.0-0.7); EOSINOPHILS % (AUTO) 1.6 % (0.0-6.0); HEMATOCRIT 25 % (33-45); HEMOGLOBIN 8.1 g/dL (11.5-14.8); LYMPHOCYTES # (AUTO) 2.1 /CMM (0.8-4.8); LYMPHOCYTES % (AUTO) 21.1 % (20.0-44.0); MEAN CORPUSCULAR HEMOGLOBIN 32 PG (26.0-33.0); MEAN CORPUSCULAR HGB CONC 32 g/dl (31.0-36.0); MEAN CORPUSCULAR VOLUME 99 fL (82-100); MONOCYTES # (AUTO) 0.8 /CMM (0.1-1.30); MONOCYTES % (AUTO) 7.9 % (2.0-12.0); NEUTROPHILS # (AUTO) 6.7 /CMM (1.8-8.9); NEUTROPHILS % (AUTO) 68.6 % (43.0-81.0); PLATELET COUNT (AUTO) 200 /CMM (150-450); RDW COEFFICIENT OF VARIATION 16.7 (11.5-15.0); RED BLOOD CELL COUNT(AUTO) 2.56 MIL/uL (4.0-5.2); WHITE BLOOD COUNT (AUTO) 9.9 K/uL (4.3-11.0)
--- NOTE | 2016-12-13 13:15 | NUR ---
CALLED NURSING POLICY INTERN FOR TELE BED
[2016-12-13 13:17] LABS: CALCIUM, SERUM 8.6 mg/dL (8.5-10.1); CARBON DIOXIDE 30 mmol/L (21-32); CHLORIDE 105 mmol/L (98-107); CREATININE 1.5 mg/dL (0.6-1.3); GLUCOSE 115 mg/dL (74-106); POTASSIUM 3.2 mmol/L (3.5-5.1); SODIUM SERUM 139 mmol/L (136-145); UREA NITROGEN, BLOOD 72 mg/dL (7-18)
[2016-12-13 13:21] LABS: INR 1.09 (0.87-1.13); PROTHROMBIN TIME 11.3 SECS (9.5-12.7)
[2016-12-13 13:23] LABS: ALANINE AMINOTRANSFERASE 21 U/L (12-78); ALKALINE PHOSPHATASE 254 U/L (46-116); ASPARTATE AMINOTRANSFERASE 27 U/L (15-37); BILIRUBIN,DIRECT 0.1 mg/dL (0.0-0.2); BILIRUBIN,TOTAL 0.3 mg/dL (0.2-1.0); LIPASE 144 U/L (73-393); TOTAL PROTEIN, SERUM 5.8 g/dL (6.4-8.2)
[2016-12-13 13:25] LABS: TROPONIN I 0.019 ng/mL (0.00-0.056)
--- NOTE | 2016-12-13 13:54 | NUR ---
PAGED DR CALIX FOR CALL BACK
--- NOTE | 2016-12-13 13:59 | NUR ---
TELE 329
--- NOTE | 2016-12-13 14:15 | NUR ---
REPORT GIVEN TO AYLIN CARDOSO. PATIENT TO BE ADMITTED TO ROOM 329
--- NOTE | 2016-12-13 15:17 | NUR ---
PAGED DR MELÉNDEZ FOR CALL BACK
--- NOTE | 2016-12-13 15:50 | NUR ---
PAGED DR. YOON FOR CONSULT
[2016-12-13 16:00] VITALS: BP_SYST 105; BP_DIAS 52; BP_DIAS 56
--- NOTE | 2016-12-13 16:00 | NUR ---
ADMITTING NOTE 81 YEAR OLD FEMALE UNDER THE CARE OF NEPHROLOGY GROUP. ADMITTED FOR GI BLEED. BREATHING EVEN AND UNLABORED WITH MECHANICAL VENTILATOR, FULL SUPPORT. VS CHECKED AND NOTED IN LONG FORM, STABLE. PATIENT ABLE TO FOLLOW SIMPLE COMMAND, OPENS EYES SPONTANEOUSLY, VERY WEAK. RFA IV PATENT. LARGE LIQUID BLACK BM, STOOL SEND FOR SAMPLE OB, CALLED LAB FOR COMMUNICATION SPEC. CLEANED PATIENT, DISCUSSED PLAN OF CARE WITH FAMILY AT BED SIDE. PAGED DR. YORK FOR ADMITTING ORDERS, NO RESPONSE. PT. DENIES PAIN. GT CLAMPED, NO FEEDING AT THIS TIME. RECEIVED 15 ML DARK COLORED RESIDUAL FROM JEJUNUM, 0ML FROM GT. ORIENTED TO UNIT. CALL LIGHT IN REACH. PENDING MD RESPONSE.
--- NOTE | 2016-12-13 16:08 | NUR ---
PATIENT TRANSPORTED TO [facility] VIA STRETCHER WITH RN, RT, AND EMT. PATIENT REMAINS STABLE. RNWALKER TO PROVIDE CONNOR.
--- NOTE | 2016-12-13 18:18 | NUR ---
PAGED DR. CALIX AGAIN
--- NOTE | 2016-12-13 19:10 | NUR ---
PAGED DR. CALIX AGAIN FOR ADMITTING ORDER.
--- NOTE | 2016-12-13 19:15 | NUR ---
BUTCHER FISH NOTE RECEIVED PATIENT FROM DAY SHIFT, PATIENT IS ALERT AND ORIENTEDX1, MOUTH WORDING IN ALGERIAN, DAUGHTER AT BED SIDE, VENT DEPENDENT. HD PORT ON RIGHT SUBCLAVIAN, IV ON RIGHT FA 20G. STILL WAITING FOR DR'S ADMITTING ORDER. TELE MONITOR AFIB 100. G TUBE PRESENT WITHOUT RESIDUAL, FLUSHED WITH WATER, PATENT. SRX2, BED IN LOW POSITION, CALL LIGHT WITHIN REACH, WILL CONTINUE TO MONITOR PATIENT.
--- NOTE | 2016-12-13 19:30 | NUR ---
MARKETING PROPOSAL SPECIALIST NOTE RELAYED DR CALIX ABOUT PATIENT'S K LEVEL IS 3.2, ESRD WITH HD. MADE AWARE AND STATED DO NOT REPLACE IT AT THIS TIME.
--- NOTE | 2016-12-13 19:30 | NUR ---
ALTERATION MANAGER NOTE GOT ADMISSION ORDER FROM DR. CALIX, FAXED HOME MED LIST TO THE PHARMACY, PUT THE ORDER SHEET IN THE CHART. WILL INPUT IN THE SYSTEM ACCORDINGLY.
[2016-12-13] MEDS ORDERED: IV SET PRIMARY PUMP SET 1 EA INFUS.SET MC ONE (19:45)
[2016-12-13 20:00] VITALS: BP 96/57
[2016-12-13] MEDS ORDERED: LACTULOSE 10 G/15 ML UDC (PYXIS) PO PRN (20:00)
[2016-12-13] MEDS: IV D5/ 0.9% NACL 1,000 ML IV PRN (20:03)
[2016-12-13] MEDS: PANTOPRAZOLE 40 MG VIAL IV SCH (20:04)
--- NOTE | 2016-12-13 20:50 | NUR ---
DR. YOON SAW THE PATIENT AND ORDERED EGD ON Tue12/15/16. GOT A CONSENT FROM HER DAUGHTER WHO WAS AT BEDSIDE.
[2016-12-13] MEDS: METOPROLOL TARTRATE 25 MG TABLET GT SCH (21:00)
[2016-12-13] MEDS: SILDENAFIL CITRATE 20 MG TABLET GT SCH (21:00)
[2016-12-13] MEDS: LEVETIRACETAM SOL (5 ML) 100 MG/ML UDC GT SCH (21:00)
[2016-12-13] MEDS: MIDODRINE HCL (5MG) 5 MG TABLET PO SCH (21:00)
[2016-12-14] VITALS (8 sets, daily range): BP systolic 87–104; BP diastolic 41–59
[2016-12-14] MEDS: SILDENAFIL CITRATE 20 MG TABLET GT SCH ×3 (05:00→21:00)
[2016-12-14] MEDS: MIDODRINE HCL (5MG) 5 MG TABLET PO SCH ×3 (05:00→21:00)
[2016-12-14] MEDS: METOCLOPRAMIDE HCL 5 MG/5 ML UDC GT SCH ×5 (06:00→23:05)
[2016-12-14] MEDS ORDERED: PANTOPRAZOLE 40 MG/PACK PACK GT SCH (06:30)
--- NOTE | 2016-12-14 06:54 | NUR ---
MACHINE FILLER SHREDDER NOTE PATIENT IS SLEEPING IN BED COMFORTABLY, NO S/S OF RESPIRATORY DISTRESS OR FACIAL GRIMACE NOTED. IV ON RIGHT FA IS INTACT AND PATENT, FLUID IS RUNNING. WILL ENDORSE TO DAY SHIFT NURSE FOR CONNOR.
[2016-12-14 07:05] LABS: BASOPHILS % (AUTO) 0.6 % (0.0-2.0); EOSINOPHILS # (AUTO) 0.2 /CMM (0.0-0.7); EOSINOPHILS % (AUTO) 3.1 % (0.0-6.0); LYMPHOCYTES # (AUTO) 1.7 /CMM (0.8-4.8); LYMPHOCYTES % (AUTO) 23.3 % (20.0-44.0); MEAN CORPUSCULAR HEMOGLOBIN 32 PG (26.0-33.0); MEAN CORPUSCULAR HGB CONC 33 g/dl (31.0-36.0); MEAN CORPUSCULAR VOLUME 98 fL (82-100); MONOCYTES # (AUTO) 0.5 /CMM (0.1-1.30); MONOCYTES % (AUTO) 6.7 % (2.0-12.0); NEUTROPHILS # (AUTO) 4.9 /CMM (1.8-8.9); NEUTROPHILS % (AUTO) 66.3 % (43.0-81.0); PLATELET COUNT (AUTO) 160 /CMM (150-450); RDW COEFFICIENT OF VARIATION 17.7 (11.5-15.0); RED BLOOD CELL COUNT(AUTO) 2.07 MIL/uL (4.0-5.2); WHITE BLOOD COUNT (AUTO) 7.4 K/uL (4.3-11.0)
[2016-12-14 07:24] LABS: HEMATOCRIT 20 % (33-45); HEMOGLOBIN 6.7 g/dL (11.5-14.8)
--- NOTE | 2016-12-14 07:30 | NUR ---
PT IS IN BED, ASLEEP. VENT SETTINGS ARE ACCURATE, PT SHOWS NO SIGNS OF RESPIRATORY DISTRESS OR SOB. R FA IV RUNNING D5NS AT 50 ML/HR. BED IS IN LOW AND LOCKED POSITION, SIDE RAILS UP X2, BED ALARM IS ON. WILL CONTINUE TO MONITOR.
--- NOTE | 2016-12-14 07:31 | NUR ---
EQUESTRIAN TRAINER NOTE GOT A CALL FROM THE LAB REGARDING CRITICAL LAB RESULT H&H. 6.12/16, ENDORSED TO DAY SHIFT NURSE TO F/U.
--- NOTE | 2016-12-14 07:35 | NUR ---
PT REC'D ON VENT VIA PORTEX #8 CUFFED. MAILMASTER DONE. VENT SETTINGS PER MD REQUEST. AMBU BAG AT HOB. SX'D SMALL AMT OF THICK TANNISH SECRETIONS. GOOD GAG REFLEX NOTED. VENT ALARMS CHECKED AND AUDIBLE PER POLICY. VENT PLUGGED INTO RED OUTLET. NO RESP. DISTRESS NOTED. Addendum: 12/14/16 at 0738 by SHANON SHELDON RT Amended: Links added.
[2016-12-14 07:55] LABS: CALCIUM, SERUM 7.6 mg/dL (8.5-10.1); CREATININE 1.5 mg/dL (0.6-1.3); UREA NITROGEN, BLOOD 64 mg/dL (7-18)
[2016-12-14 08:01] LABS: CARBON DIOXIDE 22 mmol/L (21-32); CHLORIDE 110 mmol/L (98-107); SODIUM SERUM 143 mmol/L (136-145)
[2016-12-14] MEDS ORDERED: IV NS 0.9% 250 ML IV ONE (08:32)
[2016-12-14] MEDS ORDERED: BLOOD IV SET 1 EA INFUS.SET MC ONE (08:33)
[2016-12-14 08:35] LABS: EOSINOPHILS % (MANUAL) 3 % (0-4); LYMPHOCYTES % (MANUAL) 26 % (16-48); MONOCYTES % (MANUAL) 3 % (0-11.0); NEUTROPHILS % (MANUAL) 68 (42-76)
[2016-12-14 08:42] LABS: RETICULOCYTE COUNT 2.9 % (0.6-2.5)
[2016-12-14] MEDS: LEVETIRACETAM SOL (5 ML) 100 MG/ML UDC GT SCH ×2 (08:44→21:00)
[2016-12-14] MEDS: BUMETANIDE (1 MG) 1 MG TABLET GT SCH (08:44)
[2016-12-14] MEDS: DOCUSATE SODIUM LIQ 100 MG/10 ML UDC GT SCH ×2 (08:44→16:30)
[2016-12-14] MEDS: METOPROLOL TARTRATE 25 MG TABLET GT SCH ×2 (08:44→21:00)
[2016-12-14] MEDS: ZINC SULFATE 220 MG CAPSULE GT SCH (08:45)
[2016-12-14] MEDS: PROSOURCE / PROSTAT (PYXIS) 30 ML UDC GT SCH ×3 (08:45→16:30)
[2016-12-14] MEDS: SEVELAMER CARBONATE 0.8 GM POWD.PACK GT SCH ×3 (08:45→18:00)
[2016-12-14] MEDS: PANTOPRAZOLE 40 MG VIAL IV SCH (08:45)
[2016-12-14] MEDS: CALCITRIOL 0.25 MCG CAPSULE GT SCH (08:45)
[2016-12-14] MEDS: VIT B CMPLX 3/FA/VIT C/BIOTIN 1 TAB TABLET GT SCH (08:45)
[2016-12-14 08:49] LABS: GLUCOSE 471 mg/dL (74-106); POTASSIUM 2.6 mmol/L (3.5-5.1)
--- NOTE | 2016-12-14 09:06 | NUR ---
RN NOTES RECEIVED REPORT FROM LAB WITH LAB RESULTS OF POTASSIUM 2.6 AND GLUCOSE 471 CHECKED WITH GLUCOMETER NOTED AT 115 MG/DL DR. MELÉNDEZ INFORMED WITH ORDERS FOR REDRAW BMP AND REPORT RESULTS WHEN AVAILABLE
[2016-12-14 09:07] LABS: URIC ACID 4.6 mg/dL (2.6-7.2)
[2016-12-14 10:30] LABS: CARBON DIOXIDE 24 mmol/L (21-32); CHLORIDE 107 mmol/L (98-107); GLUCOSE 114 mg/dL (74-106); SODIUM SERUM 142 mmol/L (136-145)
[2016-12-14 10:31] LABS: CALCIUM, SERUM 8.5 mg/dL (8.5-10.1); CREATININE 1.6 mg/dL (0.6-1.3); UREA NITROGEN, BLOOD 70 mg/dL (7-18)
--- NOTE | 2016-12-14 10:42 | NUR ---
WOUND CARE CONSULT: PT PRESENTS WITH LARGE ABDOMEN AND CLAMPED G TUBE WITH GREENISH DRAINAGE AROUND G TUBE SITE. SACRAL ULCER, STAGE 4, PRESENT ON ADMISSION WITH GREENISH DRAINAGE. RECOMMENDATIONS MADE FOR WOUND CARE AND SKIN PROTECTION. DISCUSSED WITH NURSING STAFF AND PUBLIC RELATIONS. SURGICAL CONSULT RECOMMENDED. WILL SEEP PRN. LOW AIRLOSS BED TO BE PLACED. ALL SKIN PROTECTION MEASURES IN PLACE. MD IN AGREEMENT WITH PLAN OF CARE. Addendum: 12/14/16 at 1044 by ALONSO GARZA WNDNU Amended: Links added.
[2016-12-14 11:31] LABS: THYROID STIMULATING HORMONE 2.912 uIU/mL (0.358-3.74)
[2016-12-14] MEDS: Z GUARD REMEDY 2 OZ OINT TP PRN (13:31)
[2016-12-14] MEDS: DAKINS QUARTER STRENGTH (0.125%) 480 ML BOTTLE TOP SCH (15:35)
[2016-12-14] MEDS: Z GUARD REMEDY 2 OZ OINT TP SCH (15:35)
--- NOTE | 2016-12-14 18:32 | NUR ---
PT IS IN BED, SLEEPING AND IS COMFORTABLE, SON IS AT BEDSIDE. VENT SETTINGS ARE CORRECT AND PT SHOWS NO SIGNS OF DISTRESS OR PAIN. IV ON RFA INTACT AND PATENT, FLUID IS RUNNING AND DVT PUMPS ARE ON. BED IS IN LOW AND LOCKED POSITION, SIDE RAILS UP X2, AND BED ALARM IS ON. WILL ENDORSE TO AUCTION ASSISTANT NURSE FOR CONTINUITY OF CARE.
--- NOTE | 2016-12-14 19:30 | NUR ---
HIGH SCHOOL CHEMISTRY TEACHER NOTE RECEIVED PATIENT FROM DAY SHIFT, PATIENT IS ALERT AND ORIENTEDX1, MOUTH WORDING IN ENGLISH, SON IS AT BED SIDE, VENT DEPENDENT. HD PORT ON RIGHT CHEST WALL, IV ON RIGHT FA 20G, FLUID IS RUNNING. TELE MONITOR AFIB 92. G TUBE PRESENT WITHOUT RESIDUAL, COVERED WITH A DIAPER DUE TO DRAINAGE. SRX2, BED IN LOW POSITION, CALL LIGHT WITHIN REACH, WILL CONTINUE TO MONITOR PATIENT.
[2016-12-14] MEDS: IV D5/ 0.9% NACL 1,000 ML IV PRN (20:02)
[2016-12-14] MEDS ORDERED: LEVETIRACETAM (500MG) 500 MG in IV NS 0.9% 100 ML IV ONE (21:00)
--- NOTE | 2016-12-14 21:03 | NUR ---
SERVICING REP NOTE DR. YOON SAW THE PATIENT AND ORDERED CBC IN THE MORNING. PLANNING TO DO EGD IN THE MORNING.
--- NOTE | 2016-12-14 22:50 | NUR ---
COTTON GINNER NOTE PATIENT COMPLAINS OF STOMACH PAIN, PER MD YOON, OKAY TO GIVE TYLENOL ONCE FOR PAIN. UNABLE TO GET IT FROM THE NEW OMNICELL EVEN FROM THE SUPERVISOR TRUST ACCOUNTS, AND TADEO STATED THAT CRUSH THE MED AND GIVE IT TO THE PATIENT. PUT AN ONCE ORDER AND ADMINISTERED IT.
[2016-12-14] MEDS ORDERED: ACETAMINOPHEN ES 500 MG TABLET ONE (22:59)
[2016-12-14] MEDS ORDERED: ACETAMINOPHEN ES 500 MG TABLET GT ONE (23:00)
[2016-12-15] VITALS (8 sets, daily range): BP systolic 93–136; BP diastolic 46–62
[2016-12-15] MEDS: MIDODRINE HCL (5MG) 5 MG TABLET PO SCH ×3 (05:00→23:19)
[2016-12-15] MEDS: SILDENAFIL CITRATE 20 MG TABLET GT SCH ×3 (05:00→21:44)
[2016-12-15] MEDS: METOCLOPRAMIDE HCL 5 MG/5 ML UDC GT SCH (05:35)
--- NOTE | 2016-12-15 06:59 | NUR ---
HAT AND CAP OPENER NOTE PATIENT IS RESTING IN BED, NO S/S OF RESPIRATORY DISTRESS OR PAIN AT THIS TIME. MORNING CARE RENDERED, CHANGED DRESSING ON ABDOMEN. TELE MONITOR A FIB 107. WILL ENDORSE TO DAY SHIFT FOR CONNOR.
[2016-12-15 07:01] LABS: BASOPHILS % (AUTO) 0.5 % (0.0-2.0); EOSINOPHILS # (AUTO) 0.1 /CMM (0.0-0.7); HEMATOCRIT 26 % (33-45); HEMOGLOBIN 8.9 g/dL (11.5-14.8); LYMPHOCYTES # (AUTO) 1.4 /CMM (0.8-4.8); LYMPHOCYTES % (AUTO) 17.4 % (20.0-44.0); MEAN CORPUSCULAR HEMOGLOBIN 33 PG (26.0-33.0); MEAN CORPUSCULAR HGB CONC 34 g/dl (31.0-36.0); MEAN CORPUSCULAR VOLUME 96 fL (82-100); MONOCYTES # (AUTO) 0.7 /CMM (0.1-1.30); MONOCYTES % (AUTO) 8.7 % (2.0-12.0); NEUTROPHILS # (AUTO) 5.9 /CMM (1.8-8.9); NEUTROPHILS % (AUTO) 72.4 % (43.0-81.0); PLATELET COUNT (AUTO) 166 /CMM (150-450); RDW COEFFICIENT OF VARIATION 18.5 (11.5-15.0); RED BLOOD CELL COUNT(AUTO) 2.72 MIL/uL (4.0-5.2); WHITE BLOOD COUNT (AUTO) 8.1 K/uL (4.3-11.0)
--- NOTE | 2016-12-15 07:25 | NUR ---
RECEIVED PT IN BED, AWAKE AND ALERT. PT IS CONNECTED TO VENT WITH NO SIGNS OF RESPIRATORY DISTRESS. IV ON RFA RUNNING D5NS AT 50 ML/HR. BED IS IN LOW AND LOCKED POSITION, SIDE RAILS UP X3, CALL LIGHT IS IN REACH AND BED ALARM IS ON. WILL CONTINUE TO MONITOR.
[2016-12-15] MEDS ORDERED: LEVETIRACETAM (500MG) 500 MG in IV NS 0.9% 100 ML IV ONE (08:00)
[2016-12-15] MEDS: SEVELAMER CARBONATE 0.8 GM POWD.PACK GT SCH ×3 (08:00→17:12)
[2016-12-15] MEDS: PANTOPRAZOLE 40 MG VIAL IV SCH (08:03)
[2016-12-15] MEDS: DAKINS QUARTER STRENGTH (0.125%) 480 ML BOTTLE TOP SCH (08:03)
[2016-12-15] MEDS: Z GUARD REMEDY 2 OZ OINT TP PRN (08:03)
[2016-12-15] MEDS: ZINC SULFATE 220 MG CAPSULE GT SCH (08:04)
[2016-12-15] MEDS: CALCITRIOL 0.25 MCG CAPSULE GT SCH (08:04)
[2016-12-15] MEDS: Z GUARD REMEDY 2 OZ OINT TP SCH (08:04)
[2016-12-15] MEDS: METOPROLOL TARTRATE 25 MG TABLET GT SCH ×2 (08:05→21:00)
[2016-12-15] MEDS: VIT B CMPLX 3/FA/VIT C/BIOTIN 1 TAB TABLET GT SCH (08:05)
[2016-12-15] MEDS: PROSOURCE / PROSTAT (PYXIS) 30 ML UDC GT SCH ×3 (08:05→17:12)
[2016-12-15] MEDS: DOCUSATE SODIUM LIQ 100 MG/10 ML UDC GT SCH ×2 (08:06→17:12)
[2016-12-15] MEDS: LEVETIRACETAM SOL (5 ML) 100 MG/ML UDC GT SCH ×2 (08:06→12:04)
[2016-12-15] MEDS: BUMETANIDE (1 MG) 1 MG TABLET GT SCH (08:06)
[2016-12-15] MEDS ORDERED: ROCURONIUM BROMIDE 50 MG/5 ML ONE (10:06)
[2016-12-15 10:21] LABS: CARCINOEMBRYONIC AG (CEA) 3.7 ng/mL (0.0-4.7)
[2016-12-15] MEDS: METOCLOPRAMIDE HCL 10 MG/2 ML VIAL IV SCH ×3 (12:03→23:15)
[2016-12-15] MEDS: ACETAMINOPHEN 650 MG/20.3 ML UDC GT PRN ×2 (13:48→23:12)
[2016-12-15] MEDS ORDERED: ANESTHESIA TRAY IN PYXIS 1 EA TRAY MC ONE (14:11)
[2016-12-15] MEDS: RENAL NOVASOURCE 1,000 ML BOTTLE GT PRN (17:12)
--- NOTE | 2016-12-15 18:55 | NUR ---
PT IS IN BED WITH DAUGHTER AT BED SIDE. VENT SETTINGS ARE ACCURATE, NO SIGNS OF RESPIRATORY DISTRESS OR PAIN. GTUBE FEEDING RUNNING @50ML/HR. IV ON RFA RUNNING D5NS @ 50ML/HR. ALL MEDS GIVEN ORDERED. BED IS IN LOW AND LOCKED POSITION, SIDE RAILS UP X2, BED ALARM IS ON. WILL ENDORSE TO MACHINIST RN FOR CONTINUITY OF CARE.
--- NOTE | 2016-12-15 19:15 | NUR ---
RN OPEN NOTES RECEIVED PATIENT AWAKE IN BED WITH FAMILY AT BEDSIDE. A/O X1, ABLE TO MOUTH WORDS. NO SIGNS OF DISTRESS OR DISCOMFORT. BREATHING EVEN AND UNLABORED. ON MECH VENT WITH SETTING ORDERED. ON TELE MONITORING WITH AFIB 85 NOTED. HAS G-TUBE WITH FEEDING RUNNING, PATIENT TOLERATING WELL. IV ACCESS IN RFA WITH D5NS INFUSING, PATENT AND INTACT, NO SIGNS OF REDNESS OR INFILTRATION. HAS RCW HD CATH, INTACT. BED IN LOW LOCKED POSITION WITH SIDE RAILS X2. CALL LIGHT WITHIN REACH. WILL CONTINUE TO MONITOR.
[2016-12-16] VITALS (7 sets, daily range): BP systolic 94–116; BP diastolic 34–54
[2016-12-16] MEDS: SILDENAFIL CITRATE 20 MG TABLET GT SCH ×3 (05:01→22:17)
[2016-12-16] MEDS: MIDODRINE HCL (5MG) 5 MG TABLET PO SCH ×3 (05:01→22:17)
[2016-12-16] MEDS: METOCLOPRAMIDE HCL 10 MG/2 ML VIAL IV SCH ×3 (05:01→17:13)
--- NOTE | 2016-12-16 07:44 | NUR ---
RN CLOSING NOTES PATIENT AWAKE IN BED, CURRENTLY RECEIVING HD WITH HD NURSE AT BEDSIDE. A/O X1, ABLE TO MOUTH WORDS. NO SIGNS OF DISTRESS OR DISCOMFORT. BREATHING EVEN AND UNLABORED. ON MECH VENT WITH SETTING ORDERED. ON TELE MONITORING WITH AFIB 92 NOTED. HAS GJ-TUBE WITH FEEDING RUNNING, PATIENT TOLERATING WELL. IV ACCESS IN RFA WITH D5NS INFUSING, PATENT AND INTACT, NO SIGNS OF REDNESS OR INFILTRATION. HAS RCW HD CATH, INTACT. DRESSING ON L ABD C/D/I. ALL NEEDS MET. NO SIGNIFICANT CHANGES THROUGH THE NIGHT. PATIENT KEPT CLEAN DRY AND COMFORTABLE. REPOSITIONED Q2H. BED IN LOW LOCKED POSITION WITH SIDE RAILS X2. CALL LIGHT WITHIN REACH. ENDORSED TO AM SHIFT FOR CONNOR.
[2016-12-16 07:57] LABS: BASOPHILS # (AUTO) 0.1 /CMM (0.0-0.2); BASOPHILS % (AUTO) 0.9 % (0.0-2.0); EOSINOPHILS # (AUTO) 0.2 /CMM (0.0-0.7); EOSINOPHILS % (AUTO) 2.9 % (0.0-6.0); HEMATOCRIT 24 % (33-45); HEMOGLOBIN 7.9 g/dL (11.5-14.8); LYMPHOCYTES # (AUTO) 1.3 /CMM (0.8-4.8); LYMPHOCYTES % (AUTO) 15.7 % (20.0-44.0); MEAN CORPUSCULAR HEMOGLOBIN 32 PG (26.0-33.0); MEAN CORPUSCULAR HGB CONC 33 g/dl (31.0-36.0); MEAN CORPUSCULAR VOLUME 97 fL (82-100); MONOCYTES # (AUTO) 0.7 /CMM (0.1-1.30); MONOCYTES % (AUTO) 8.4 % (2.0-12.0); NEUTROPHILS # (AUTO) 5.9 /CMM (1.8-8.9); NEUTROPHILS % (AUTO) 72.1 % (43.0-81.0); PLATELET COUNT (AUTO) 153 /CMM (150-450); RDW COEFFICIENT OF VARIATION 18.7 (11.5-15.0); WHITE BLOOD COUNT (AUTO) 8.1 K/uL (4.3-11.0)
[2016-12-16 08:04] LABS: CALCIUM, SERUM 7.6 mg/dL (8.5-10.1); CARBON DIOXIDE 29 mmol/L (21-32); CHLORIDE 107 mmol/L (98-107); CREATININE 0.8 mg/dL (0.6-1.3); GLUCOSE 128 mg/dL (74-106); MAGNESIUM 1.7 mg/dL (1.8-2.4); PHOSPHORUS 1.8 mg/dL (2.5-4.9); SODIUM SERUM 142 mmol/L (136-145); UREA NITROGEN, BLOOD 24 mg/dL (7-18)
--- NOTE | 2016-12-16 08:04 | NUR ---
BEEF PUSHER NOTES RECEIVED PATIENT IN BED, NO APPARENT DISTRESS NOTED, NO S/S OF DISCOMFORT OR PAIN NOTED. HOB ELEVATED, VENT SETTINGS ORDERED, NO SOB NOTED. PATIENT CURRENTLY RECEIVING DIALYSIS, TOLERATING WELL. ON TELE MONITORING AFIB HR 104, GJ-TUBE FEEDING RUNNING WELL. IV LINE ON RFA PATENT INFUSING D5NS AT 50 ML/HR. ALL NEEDS MET, KEPT CLAN AND DRY. CALL LIGHT WITHIN REACH.
[2016-12-16 08:14] LABS: POTASSIUM 2.8 mmol/L (3.5-5.1)
[2016-12-16] MEDS: METOPROLOL TARTRATE 25 MG TABLET GT SCH ×2 (09:00→21:00)
[2016-12-16] MEDS: VIT B CMPLX 3/FA/VIT C/BIOTIN 1 TAB TABLET GT SCH (10:31)
[2016-12-16] MEDS: ZINC SULFATE 220 MG CAPSULE GT SCH (10:31)
[2016-12-16] MEDS: BUMETANIDE (1 MG) 1 MG TABLET GT SCH (10:31)
[2016-12-16] MEDS: LEVETIRACETAM SOL (5 ML) 100 MG/ML UDC GT SCH ×2 (10:31→22:17)
[2016-12-16] MEDS: SEVELAMER CARBONATE 0.8 GM POWD.PACK GT SCH ×3 (10:31→17:13)
[2016-12-16] MEDS: CALCITRIOL 0.25 MCG CAPSULE GT SCH (10:31)
[2016-12-16] MEDS: PANTOPRAZOLE 40 MG VIAL IV SCH (10:31)
[2016-12-16] MEDS: Z GUARD REMEDY 2 OZ OINT TP SCH (10:32)
[2016-12-16] MEDS: DAKINS QUARTER STRENGTH (0.125%) 480 ML BOTTLE TOP SCH (10:33)
[2016-12-16] MEDS: PROSOURCE / PROSTAT (PYXIS) 30 ML UDC GT SCH ×3 (10:42→17:13)
[2016-12-16] MEDS: DOCUSATE SODIUM LIQ 100 MG/10 ML UDC GT SCH ×2 (13:06→17:13)
[2016-12-16] MEDS: Magnesium 1GM/D5W 100ML PREMIX 100 ML IV SCH ×2 (13:06→17:23)
[2016-12-16] MEDS: POTASSIUM CHLORIDE 20 MEQ POWDER PACKET GT SCH ×3 (13:07→19:46)
[2016-12-16] MEDS ORDERED: EPOETIN ALFA (10,000 UNIT) 10,000 UNIT/ML VIAL IV ONE (15:00)
--- NOTE | 2016-12-16 15:07 | NUR ---
RN TLE NOTES PER PHARMACY THEY WILL SEND MAG AND POTASSIUM TO [facility].
--- NOTE | 2016-12-16 16:07 | NUR ---
RN TLE NOTES SPOKE TO PHARMACY, PER PHARMACISTS, THEY WILL SEND EPOGEN, POTASSIUM, AND MAG.
[2016-12-16] MEDS ORDERED: NEUTRA PHOS 1 POWD.PACKET GT ONE (17:00)
[2016-12-16] MEDS: RENAL NOVASOURCE 1,000 ML BOTTLE GT PRN (18:04)
[2016-12-16] MEDS: IV D5/ 0.9% NACL 1,000 ML IV PRN (18:05)
--- NOTE | 2016-12-16 19:10 | NUR ---
NEONATAL INTENSIVE CARE UNIT NURSE CLOSING NOTES PATIENT IN BED, NO APPARENT DISTRESS NOTED,NO SOB NOTED NO S/S OF PAIN NOTED. VENT SETTINGS ORDERED, TUBE FEEDING INFUSING WELL, IV LINE AN RFA PATENT. ALL DUE MEDS GIVEN ALL NEEDS MET. WILL ENDORSE CARE TO PM SHIFT.
--- NOTE | 2016-12-16 19:20 | NUR ---
RN OPEN NOTES RECEIVED PATIENT AWAKE IN BED WITH FAMILY AT BEDSIDE. A/O X1, ABLE TO MOUTH WORDS. NO SIGNS OF DISTRESS OR DISCOMFORT. BREATHING EVEN AND UNLABORED. ON MECH VENT WITH SETTING ORDERED. ON TELE MONITORING WITH AFIB 104 NOTED. HAS G-TUBE WITH FEEDING RUNNING, PATIENT TOLERATING WELL. IV ACCESS IN RFA WITH D5NS INFUSING, PATENT AND INTACT, NO SIGNS OF REDNESS OR INFILTRATION. HAS RCW HD CATH, INTACT. BED IN LOW LOCKED POSITION WITH SIDE RAILS X2. CALL LIGHT WITHIN REACH. WILL CONTINUE TO MONITOR.
[2016-12-17] VITALS (10 sets, daily range): BP systolic 85–113; BP diastolic 42–67
[2016-12-17] MEDS: METOCLOPRAMIDE HCL 10 MG/2 ML VIAL IV SCH ×5 (00:40→23:47)
[2016-12-17] MEDS: SILDENAFIL CITRATE 20 MG TABLET GT SCH ×3 (05:38→21:33)
[2016-12-17] MEDS: MIDODRINE HCL (5MG) 5 MG TABLET PO SCH ×3 (05:39→21:33)
--- NOTE | 2016-12-17 07:31 | NUR ---
RN CLOSING NOTES PATIENT AWAKE IN BED. A/O X1, ABLE TO MOUTH WORDS. NO SIGNS OF DISTRESS OR DISCOMFORT. BREATHING EVEN AND UNLABORED. ON MECH VENT WITH SETTING ORDERED. ON TELE MONITORING WITH AFIB 88 NOTED. HAS GJ-TUBE WITH FEEDING RUNNING, PATIENT TOLERATING WELL. IV ACCESS IN RFA WITH D5NS INFUSING, PATENT AND INTACT, NO SIGNS OF REDNESS OR INFILTRATION. HAS RCW HD CATH, INTACT. DRESSING ON VEENA ABD C/D/I. ALL NEEDS MET. NO SIGNIFICANT CHANGES THROUGH THE NIGHT. REPOSITIONED Q2H. BED IN LOW LOCKED POSITION WITH SIDE RAILS X2. CALL LIGHT WITHIN REACH. ENDORSED TO AM SHIFT FOR CONNOR.
--- NOTE | 2016-12-17 08:18 | NUR ---
RN NOTE RECEIVED PT IN BED. A&OX1. UNABLE TO SPEAK BUT ABLE TO MOUTH WORDS, PRIMARILY UNDERSTANDS AMERICAN. PT IS VENT DEPENDENT, VENT SETTINGS IN PLACE. PT ON TELE MONITOR, SHOWING AFIB AT 88BPM. GJ TUBE PRESENT WITH SLIGHT LEAKING AT SURGICAL SITE. IV ACCESS LOCATED ON RIGHT FA, 20G, RUNNING D5NS AT 50ML/HR. SAFETY MEASURES IN PLACE. WILL CONTINUE TO MONITOR.
[2016-12-17 08:31] LABS: CALCIUM, SERUM 7.8 mg/dL (8.5-10.1); CARBON DIOXIDE 29 mmol/L (21-32); CHLORIDE 102 mmol/L (98-107); CREATININE 1.1 mg/dL (0.6-1.3); GLUCOSE 151 mg/dL (74-106); MAGNESIUM 2.4 mg/dL (1.8-2.4); PHOSPHORUS 2.2 mg/dL (2.5-4.9); SODIUM SERUM 132 mmol/L (136-145); UREA NITROGEN, BLOOD 38 mg/dL (7-18)
[2016-12-17 08:34] LABS: POTASSIUM 2.8 mmol/L (3.5-5.1)
[2016-12-17] MEDS: DOCUSATE SODIUM LIQ 100 MG/10 ML UDC GT SCH ×2 (09:03→16:54)
[2016-12-17] MEDS: CALCITRIOL 0.25 MCG CAPSULE GT SCH (09:03)
[2016-12-17] MEDS: LEVETIRACETAM SOL (5 ML) 100 MG/ML UDC GT SCH ×2 (09:03→21:33)
[2016-12-17] MEDS: METOPROLOL TARTRATE 25 MG TABLET GT SCH ×2 (09:04→21:34)
[2016-12-17] MEDS: PANTOPRAZOLE 40 MG VIAL IV SCH (09:04)
[2016-12-17] MEDS: SEVELAMER CARBONATE 0.8 GM POWD.PACK GT SCH (09:04)
[2016-12-17] MEDS: VIT B CMPLX 3/FA/VIT C/BIOTIN 1 TAB TABLET GT SCH (09:04)
[2016-12-17] MEDS: ZINC SULFATE 220 MG CAPSULE GT SCH (09:04)
[2016-12-17] MEDS: BUMETANIDE (1 MG) 1 MG TABLET GT SCH (09:04)
[2016-12-17] MEDS: Z GUARD REMEDY 2 OZ OINT TP PRN (09:05)
[2016-12-17] MEDS: DAKINS QUARTER STRENGTH (0.125%) 480 ML BOTTLE TOP SCH (09:05)
[2016-12-17] MEDS: Z GUARD REMEDY 2 OZ OINT TP SCH (09:06)
[2016-12-17] MEDS: PROSOURCE / PROSTAT (PYXIS) 30 ML UDC GT SCH ×3 (09:08→16:54)
[2016-12-17] MEDS: POTASSIUM CHLORIDE 20 MEQ POWDER PACKET GT SCH ×3 (10:54→12:23)
[2016-12-17] MEDS ORDERED: POTASSIUM PHOSPHATE MM 15 MMOL in IV D5W 250 ML IV SCH (12:30)
--- NOTE | 2016-12-17 15:30 | NUR ---
RN NOTE DR. MELÉNDEZ AWARE OF LEAKING PEG SITE. DC IS PENDING CONSULT BETWEEN ASHLEY AND RIKA.
[2016-12-17] MEDS: POTASSIUM PHOSPHATE MM 7.5 MMOL in IV D5W 100 ML IV SCH ×2 (17:53→20:04)
--- NOTE | 2016-12-17 18:37 | NUR ---
RN NOTE POTASSIUM PHOS INFUSION STARTED AT APPROXIMATELY 6PM. INFUSION STARTED LATE DUE TO MEDICATION BEING UNAVAILABLE FROM PHARMACY. PHARMACY CONTACTED MULTIPLE TIMES BETWEEN [id number] REGARDING AVAILABILITY OF THE MED.
--- NOTE | 2016-12-17 18:39 | NUR ---
RN CLOSING NOTE PT IN BED AWAKE, NO S/S OF DISTRESS, SOB OR PAIN. PT DISCHARGE DELAYED WHILE POTASSIUM/PHOS IV REPLACEMENT TAKES PLACE. PT WILL BE DISCHARGED TO [facility], CONTACT NUMBER FOR REPORT IS [phone]. ALL PATIENT NEEDS MET. SAFETY MEASURES IN PLACE. WILL ENDORSE TO [employer]PAREL PATTERNMAKER FOR CONNOR.
--- NOTE | 2016-12-17 19:15 | NUR ---
FUNCTIONAL MANAGER NOTES RECEIVED ON BED NON VERBAL,ON TRACH TO VENT AC-14,TV-500,FIO2-40%,PEEP-5,TOLERATED WELL.AFIB 107 ON TELE MONITOR.WITH GT FEEDING OF NOVASOURCE AT 45ML/HR RATE TOLERATED WELL,NO RESIDUAL NOTED. PRESENT IVF D5NS AT 50ML/HR RATE INFUSING VIA IV PUMP ON THE RIGHT FOREARM.ON SPECIALTY MATTRESS FOR SKIN MANAGEMENT.REPOSITION PER PROTOCOL,CALL LIGHT IN REACH.WILL CONTINUE TO MONITOR STATUS.
--- NOTE | 2016-12-17 21:30 | NUR ---
GAS ENGINE PERFORMANCE ENGINEER NOTES DUE MEDS ADMINISTERED VIA GT.HOB ELEVATED FOR ASPIRATION PRECAUTION.
[2016-12-18] VITALS (8 sets, daily range): BP systolic 89–113; BP diastolic 50–61
[2016-12-18] MEDS: ACETAMINOPHEN 650 MG/20.3 ML UDC GT PRN (02:40)
--- NOTE | 2016-12-18 02:40 | NUR ---
OUTSIDE SALESPERSON NOTES HEART RATE AT 130,CLAIMED SHE'S IN PAIN VIA ABDOMEN,MEDICATED WITH TYLENOL 650MG LIQUID GIVEN THRU GT.SUCTION NEEDED VIA TRACH.REPOSITION TO COMFORT.
[2016-12-18] MEDS: SILDENAFIL CITRATE 20 MG TABLET GT SCH ×3 (05:00→20:51)
[2016-12-18] MEDS: MIDODRINE HCL (5MG) 5 MG TABLET PO SCH ×3 (05:00→20:47)
--- NOTE | 2016-12-18 05:00 | NUR ---
COLOR MAKER DYER NOTES DUE BP MEDS HELD FOR LOW BP 113/56.
[2016-12-18] MEDS: METOCLOPRAMIDE HCL 10 MG/2 ML VIAL IV SCH ×4 (05:48→23:38)
--- NOTE | 2016-12-18 06:25 | NUR ---
COUNSELOR CAMP NOTES AFIB 80 ON THE MONITOR.FAIRLY RESTED.TRACH/VENT TOLERATED WELL.GT FEEDING IN PROGRESS WITH 20ML RESIDUAL NOTED.ABDOMEN REMAINS DISTENDED BUT SOFT,FOR D/C TO [facility],WITH ROOM 337-B.ENDORSE TO DAY NURSE FOR CONNOR.
--- NOTE | 2016-12-18 07:25 | NUR ---
FURNITURE CRATER NOTES PATIENT ASLEEP, EASILY AROUSABLE, A/OX1, NO DISTRESS NOTED, TRACH/VENT SETTINGS TOLERATED WELL. GTF DOSE COMPLETED, NO RESIDUAL NOTED AT THIS TIME, ABDOMEN REMAINS DISTENDED BUT SOFT, NEEDS ATTENDED AND MET, CALL LIGHT WITHIN REACH, SAFETY MEASURES IN PLACED, WILL CONTINUE TO MONITOR.
[2016-12-18 07:41] LABS: CALCIUM, SERUM 7.9 mg/dL (8.5-10.1); CARBON DIOXIDE 27 mmol/L (21-32); CHLORIDE 107 mmol/L (98-107); CREATININE 1.3 mg/dL (0.6-1.3); GLUCOSE 97 mg/dL (74-106); POTASSIUM 4.8 mmol/L (3.5-5.1); SODIUM SERUM 141 mmol/L (136-145); UREA NITROGEN, BLOOD 52 mg/dL (7-18)
[2016-12-18] MEDS: METOPROLOL TARTRATE 25 MG TABLET GT SCH ×2 (08:28→20:51)
[2016-12-18] MEDS: DOCUSATE SODIUM LIQ 100 MG/10 ML UDC GT SCH ×2 (08:30→16:57)
[2016-12-18] MEDS: ZINC SULFATE 220 MG CAPSULE GT SCH (08:30)
[2016-12-18] MEDS: VIT B CMPLX 3/FA/VIT C/BIOTIN 1 TAB TABLET GT SCH (08:30)
[2016-12-18] MEDS: PANTOPRAZOLE 40 MG VIAL IV SCH (08:30)
[2016-12-18] MEDS: CALCITRIOL 0.25 MCG CAPSULE GT SCH (08:30)
[2016-12-18] MEDS: BUMETANIDE (1 MG) 1 MG TABLET GT SCH (08:30)
[2016-12-18] MEDS: LEVETIRACETAM SOL (5 ML) 100 MG/ML UDC GT SCH ×2 (08:30→20:47)
[2016-12-18] MEDS: Z GUARD REMEDY 2 OZ OINT TP SCH (08:31)
[2016-12-18] MEDS: DAKINS QUARTER STRENGTH (0.125%) 480 ML BOTTLE TOP SCH (08:31)
[2016-12-18] MEDS: PROSOURCE / PROSTAT (PYXIS) 30 ML UDC GT SCH ×3 (08:32→16:57)
[2016-12-18 10:14] LABS: BASOPHILS % (AUTO) 0.4 % (0.0-2.0); EOSINOPHILS # (AUTO) 0.5 /CMM (0.0-0.7); EOSINOPHILS % (AUTO) 6.4 % (0.0-6.0); HEMATOCRIT 26 % (33-45); HEMOGLOBIN 8.3 g/dL (11.5-14.8); LYMPHOCYTES # (AUTO) 1.5 /CMM (0.8-4.8); LYMPHOCYTES % (AUTO) 18.5 % (20.0-44.0); MEAN CORPUSCULAR HEMOGLOBIN 32 PG (26.0-33.0); MEAN CORPUSCULAR HGB CONC 33 g/dl (31.0-36.0); MEAN CORPUSCULAR VOLUME 98 fL (82-100); MONOCYTES # (AUTO) 0.6 /CMM (0.1-1.30); NEUTROPHILS # (AUTO) 5.5 /CMM (1.8-8.9); NEUTROPHILS % (AUTO) 67.7 % (43.0-81.0); PLATELET COUNT (AUTO) 160 /CMM (150-450); RDW COEFFICIENT OF VARIATION 17.9 (11.5-15.0); RED BLOOD CELL COUNT(AUTO) 2.63 MIL/uL (4.0-5.2); WHITE BLOOD COUNT (AUTO) 8.1 K/uL (4.3-11.0)
--- NOTE | 2016-12-18 10:30 | NUR ---
AYLIN MS NOTES CLARIFIED WITH DR. CALIX RE: PATIENT'S DISCHARGE, PER MD PATIENT WILL BE DISCHARGED TOMORROW. PATIENT COMPLETED HEMODIALYSIS TODAY WITH 1L OF OUTPUT, NO CHANGE IN CONDITION. TURNED AND REPOSITIONED, AM CARE PROVIDED, ALL NEEDS ATTENDED AND MET, CALL LIGHT WITHIN REACH, WILL CONTINUE TO MONITOR. Addendum: 12/18/16 at 1428 by CASI OSHEA RN CLARIFICATION: BEEF RIBBER NOTES
[2016-12-18] MEDS ORDERED: EPOETIN ALFA (10,000 UNIT) 10,000 UNIT/ML VIAL IV ONE (11:00)
[2016-12-18] MEDS: RENAL NOVASOURCE 1,000 ML BOTTLE GT PRN (12:04)
--- NOTE | 2016-12-18 16:03 | NUR ---
TOLL BRIDGE ATTENDANT NOTES PATIENT IN BED, ALERT AND ORIENTED, SKIN CARE AND PERICARE RENDERED, GTUBE SITE NOTED TO BE LEAKING AGAIN, DRESSING CHANGED, WOUND CARE TREATMENT RENDERED, DRESSING CHANGED, Z-GUARD APPLIED, ALL NEEDS ATTENDED, TURNED AND REPOSITIONED, OFFLOADED HEELS, SON AT BEDSIDE, ALL DUE MEDS GIVEN ORDERED, CALL LIGHT WITHIN REACH, WILL CONTINUE TO MONITOR.
--- NOTE | 2016-12-18 18:27 | NUR ---
DRAINAGE ENGINEER NOTES PATIENT ALERT AND ORIENTED X1, ABLE TO MOUTH WORDS, NO DISTRESS NOTED, TRACH/VENT SETTINGS TOLERATED WELL. GTF ONGOING AND TOLERATING WELL, 10CC OF RESIDUAL AT THIS TIME, ABDOMEN REMAINS DISTENDED BUT SOFT, GT SITE STILL LEAKING, DRESSING CHANGED, TURNED AND REPOSITIONED, OFFLOADED HEELS, NEEDS ATTENDED AND MET, CALL LIGHT WITHIN REACH, SAFETY MEASURES IN PLACED, WILL ENDORSE TO SUPERVISOR LAMP SHADES FOR CONNOR.
--- NOTE | 2016-12-18 19:20 | NUR ---
DISTANCE EDUCATION TEACHER OPENING NOTES: FAMILY MEMBER (MALE) AT BEDSIDE. PT IS A/O X1 AND ABLE TO MOUTH WORDS AND IS ONLY YEMENI SPEAKING/UNDERSTANDING ONLY. VENT SETTINGS ARE AC 14, TV 500, PEEP 5, AND FIO2 40%. PT IS ON TELE MONITOR AND IS A FIB CONTROLLED IN THE 90S. NOVASOURCE FEEDING AT 50ML/HR AND IS ONGOING AT THE MOMENT. GT SITE NOTED LEAKING. CALL LIGHT WITHIN PT'S REACH. BED KEPT IN LOCKED, LOWEST, POSITION, AND SIDE RAILS X 2 UP. PT HAS R FOREARM #20G AND IS PATENT AND INTACT AND CURRENTLY S/L. WILL CONTINUE TO MONITOR PT.
--- NOTE | 2016-12-18 21:00 | NUR ---
URGENT CARE TECHNICIAN NOTES: LOPRESSOR WAS HELD D/T DECREASED BP. WILL CONTINUE TO MONITOR PT.
--- NOTE | 2016-12-18 21:00 | NUR ---
PRISON LIBRARIAN NOTES: REVATIO WAS HELD D/T DECREASED BP. WILL CONTINUE TO MONITOR PT.
[2016-12-19] VITALS (7 sets, daily range): BP systolic 88–113; BP diastolic 49–61
[2016-12-19] MEDS: SILDENAFIL CITRATE 20 MG TABLET GT SCH ×2 (05:00→12:43)
--- NOTE | 2016-12-19 05:00 | NUR ---
MAINFRAME SOFTWARE DEVELOPER NOTES: REVATIO WAS HELD D/T DECREASED BP. WILL CONTINUE TO MONITOR PT.
[2016-12-19] MEDS: METOCLOPRAMIDE HCL 10 MG/2 ML VIAL IV SCH ×2 (05:07→12:43)
[2016-12-19] MEDS: MIDODRINE HCL (5MG) 5 MG TABLET PO SCH ×2 (05:07→12:43)
[2016-12-19 06:11] LABS: BASOPHILS % (AUTO) 0.5 % (0.0-2.0); EOSINOPHILS # (AUTO) 0.6 /CMM (0.0-0.7); EOSINOPHILS % (AUTO) 6.2 % (0.0-6.0); HEMATOCRIT 27 % (33-45); HEMOGLOBIN 8.9 g/dL (11.5-14.8); LYMPHOCYTES # (AUTO) 2.4 /CMM (0.8-4.8); LYMPHOCYTES % (AUTO) 26.2 % (20.0-44.0); MEAN CORPUSCULAR HEMOGLOBIN 32 PG (26.0-33.0); MEAN CORPUSCULAR HGB CONC 33 g/dl (31.0-36.0); MEAN CORPUSCULAR VOLUME 98 fL (82-100); MONOCYTES # (AUTO) 0.7 /CMM (0.1-1.30); MONOCYTES % (AUTO) 7.9 % (2.0-12.0); NEUTROPHILS # (AUTO) 5.5 /CMM (1.8-8.9); NEUTROPHILS % (AUTO) 59.2 % (43.0-81.0); PLATELET COUNT (AUTO) 196 /CMM (150-450); RDW COEFFICIENT OF VARIATION 18.4 (11.5-15.0); RED BLOOD CELL COUNT(AUTO) 2.78 MIL/uL (4.0-5.2); WHITE BLOOD COUNT (AUTO) 9.2 K/uL (4.3-11.0)
[2016-12-19] MEDS ORDERED: ALLA266C2 TP (06:19)
[2016-12-19 06:35] LABS: ALANINE AMINOTRANSFERASE 17 U/L (12-78); ALBUMIN 1.9 g/dL (3.4-5.0); ALKALINE PHOSPHATASE 268 U/L (46-116); ASPARTATE AMINOTRANSFERASE 19 U/L (15-37); BILIRUBIN,TOTAL 0.3 mg/dL (0.2-1.0); CALCIUM, SERUM 7.9 mg/dL (8.5-10.1); CARBON DIOXIDE 30 mmol/L (21-32); CHLORIDE 100 mmol/L (98-107); CREATININE 1.2 mg/dL (0.6-1.3); GLUCOSE 125 mg/dL (74-106); MAGNESIUM 2.1 mg/dL (1.8-2.4); PHOSPHORUS 2.7 mg/dL (2.5-4.9); POTASSIUM 3.6 mmol/L (3.5-5.1); SODIUM SERUM 129 mmol/L (136-145); TOTAL PROTEIN, SERUM 6.1 g/dL (6.4-8.2); UREA NITROGEN, BLOOD 44 mg/dL (7-18)
--- NOTE | 2016-12-19 06:36 | NUR ---
COLLET GLUER CLOSING NOTES: ALL NEEDS WERE ATTENDED AND ANTICIPATED FOR. PT IS A/O X1 AND ABLE TO MOUTH WORDS AND IS ONLY DIVEHI SPEAKING/UNDERSTANDING ONLY. VENT SETTINGS REMAIN THE SAME AT AC 14, TV 500, PEEP 5, AND FIO2 40%. PT IS ON TELE MONITOR AND IS A FIB UNCONTROLLED IN THE 110S. NOVASOURCE FEEDING AT 50ML/HR HAS BEEN STOPPED AT 0600. GT SITE NOTED WITH A LITTLE BIT OF LEAKAGE. ABDOMEN REMAINS DISTENDED. CALL LIGHT WITHIN PT'S REACH. BED KEPT IN LOCKED, LOWEST, POSITION, AND SIDE RAILS X 2 UP. PT HAS R FOREARM #20G AND IS PATENT AND INTACT AND CURRENTLY S/L. PT KEPT CLEAN, DRY, AND COMFORTABLE. HEELS OFFLOADED AND PT REPOSITIONED. WILL ENDORSE TO AM NURSE FOR CONNOR.
--- NOTE | 2016-12-19 07:25 | NUR ---
RECEIVED PT IN BED, AWAKE AND ALERT. PT IS CONNECTED TO VENT WITH NO SIGNS OF RESPIRATORY DISTRESS. PT SHOWS NO SIGNS OF PAIN. SAFETY MEASURES ARE IN PLACE. WILL CONTINUE TO MONITOR.
[2016-12-19] MEDS: VIT B CMPLX 3/FA/VIT C/BIOTIN 1 TAB TABLET GT SCH (08:41)
[2016-12-19] MEDS: CALCITRIOL 0.25 MCG CAPSULE GT SCH (08:42)
[2016-12-19] MEDS: PANTOPRAZOLE 40 MG VIAL IV SCH (08:42)
[2016-12-19] MEDS: ZINC SULFATE 220 MG CAPSULE GT SCH (08:42)
[2016-12-19] MEDS: METOPROLOL TARTRATE 25 MG TABLET GT SCH (08:42)
[2016-12-19] MEDS: DOCUSATE SODIUM LIQ 100 MG/10 ML UDC GT SCH (08:42)
[2016-12-19] MEDS: BUMETANIDE (1 MG) 1 MG TABLET GT SCH (08:42)
[2016-12-19] MEDS: PROSOURCE / PROSTAT (PYXIS) 30 ML UDC GT SCH ×2 (08:42→12:43)
[2016-12-19] MEDS: LEVETIRACETAM SOL (5 ML) 100 MG/ML UDC GT SCH (08:42)
[2016-12-19] MEDS: Z GUARD REMEDY 2 OZ OINT TP PRN (08:43)
[2016-12-19] MEDS: DAKINS QUARTER STRENGTH (0.125%) 480 ML BOTTLE TOP SCH (08:43)
[2016-12-19] MEDS: Z GUARD REMEDY 2 OZ OINT TP SCH (08:44)
--- NOTE | 2016-12-19 10:15 | NUR ---
CALLED [facility], SPOKE TO KRANTHI FOR REPORT. NOTIFIED SON-ARNOL HARVEY, LEFT MESSAGE TO HIS VOICE MAIL.
--- NOTE | 2016-12-19 14:10 | NUR ---
PT WAS DISCHARGED TO [facility] BY AMBULANCE. PT LEFT IN STABLE CONDITION, CONNECTED TO VENT, NO SIGNS OF RESPIRATORY DISTRESS. ALL MEDICATIONS WERE GIVEN ORDERED.
== END 2016-12-19 14:10 | DRG 377 ==
LOC: ER 12:30 → TELE 14:39
PROVIDERS: ADMIT Internal Medicine; ATTEND Internal Medicine
PROC: 5A1955Z Respiratory Ventilation, Greater than 96 Consecutive Hours (ICD-10-PCS; 2016-12-13)
PROC: 5A1D60Z (ICD-10-PCS; principal; 2016-12-14)
PROC: 30233N1 Transfusion of Nonautologous Red Blood Cells into Peripheral Vein, Percutaneous Approach (ICD-10-PCS; 2016-12-14)
PROC: 0DB68ZX Excision of Stomach, Via Natural or Artificial Opening Endoscopic, Diagnostic (ICD-10-PCS; 2016-12-15)
DX: K29.71 Gastritis, unspecified, with bleeding (principal); N18.6 End stage renal disease; L89.154 Pressure ulcer of sacral region, stage 4; G93.40 Encephalopathy, unspecified; J96.11 Chronic respiratory failure with hypoxia; Z99.11 Dependence on respirator [ventilator] status; I12.0 Hypertensive chronic kidney disease with stage 5 chronic kidney disease or end stage renal disease; J90 Pleural effusion, not elsewhere classified; R18.8 Other ascites; K74.60 Unspecified cirrhosis of liver; Z93.0 Tracheostomy status; D63.8 Anemia in other chronic diseases classified elsewhere; I27.2 Other secondary pulmonary hypertension; I48.91 Unspecified atrial fibrillation; K21.9 Gastro-esophageal reflux disease without esophagitis; Z66 Do not resuscitate; Z79.899 Other long term (current) drug therapy; Z86.73 Personal history of transient ischemic attack (TIA), and cerebral infarction without residual deficits; Z99.2 Dependence on renal dialysis; K59.00 Constipation, unspecified; D63.1 Anemia in chronic kidney disease; R13.10 Dysphagia, unspecified; E11.22 Type 2 diabetes mellitus with diabetic chronic kidney disease; L53.8 Other specified erythematous conditions; L98.8 Other specified disorders of the skin and subcutaneous tissue; K94.29 Other complications of gastrostomy; Y84.9 Medical procedure, unspecified as the cause of abnormal reaction of the patient, or of later complication, without mention of misadventure at the time of the procedure; Y82.8 Other medical devices associated with adverse incidents; Y92.129 Unspecified place in nursing home as the place of occurrence of the external cause
CPT/HCPCS: 31720; 36415; 71010-TC; 80048-TC; 80053-TC; 80076-TC; 82272-TC; 82306; 82378; 82728-TC; 82746; 82962-TC; 83540-TC; 83615-TC; 83690-TC; 83735-TC; 84100-TC; 84443-TC; 84484-TC; 84550-TC; 85025-TC; 85045-TC; 85652-TC; 85730-TC; 86850-TC; 86921-TC; 87081-TC; 88305-TC; 88313-TC; 88342; 90935-TC; 94002-TC; 94003-TC; 94762-TC; A4606; A6253; A6402; A6403; C9113; J0885; J1953; J2704; J2765; J3475; J3490; J7030; J7040; J7042; J7050; J7060; J8597; P9016-BL; Z7610

== ENCOUNTER 2016-12-29 13:04 | Inpatient (IN) | payer MEDICARE, OTHER ==
[~2016-12-29] VITALS: Ht 154.9 cm; Wt 47.6 kg
[~2016-12-29 13:04] MED LIST changes: -MUPI22OI7
--- NOTE | 2016-12-29 13:35 | NUR ---
BIB PRIVATE EMS FROM [facility] FOR ABD DISTENTION FOR PARACENTESIS. PATIENT IS VENT TRACHE DEPENDENT. SETTING TOLERATED. RCW HD CATH NOTED, COVERED WITH DRESSING. PATIENT IS AFEBRILE. ABDOMEN DISTENDED.VSS
--- NOTE | 2016-12-29 13:36 | NUR ---
RT AT BS
[2016-12-29 14:42] LABS: BASOPHILS % (AUTO) 0.7 % (0.0-2.0); EOSINOPHILS # (AUTO) 0.1 /CMM (0.0-0.7); HEMATOCRIT 29 % (33-45); HEMOGLOBIN 9.2 g/dL (11.5-14.8); LYMPHOCYTES # (AUTO) 0.9 /CMM (0.8-4.8); LYMPHOCYTES % (AUTO) 14.6 % (20.0-44.0); MEAN CORPUSCULAR HEMOGLOBIN 32 PG (26.0-33.0); MEAN CORPUSCULAR HGB CONC 32 g/dl (31.0-36.0); MEAN CORPUSCULAR VOLUME 99 fL (82-100); MONOCYTES # (AUTO) 0.6 /CMM (0.1-1.30); MONOCYTES % (AUTO) 9.4 % (2.0-12.0); NEUTROPHILS # (AUTO) 4.8 /CMM (1.8-8.9); NEUTROPHILS % (AUTO) 73.3 % (43.0-81.0); PLATELET COUNT (AUTO) 246 /CMM (150-450); RDW COEFFICIENT OF VARIATION 18.5 (11.5-15.0); RED BLOOD CELL COUNT(AUTO) 2.89 MIL/uL (4.0-5.2); WHITE BLOOD COUNT (AUTO) 6.4 K/uL (4.3-11.0)
[2016-12-29 14:55] LABS: CALCIUM, SERUM 7.6 mg/dL (8.5-10.1); CARBON DIOXIDE 28 mmol/L (21-32); CHLORIDE 102 mmol/L (98-107); CREATININE 0.8 mg/dL (0.6-1.3); GLUCOSE 103 mg/dL (74-106); POTASSIUM 3.1 mmol/L (3.5-5.1); SODIUM SERUM 137 mmol/L (136-145)
[2016-12-29 15:04] LABS: ALANINE AMINOTRANSFERASE 19 U/L (12-78); ALBUMIN 2.3 g/dL (3.4-5.0); ALKALINE PHOSPHATASE 280 U/L (46-116); ASPARTATE AMINOTRANSFERASE 23 U/L (15-37); BILIRUBIN,DIRECT 0.1 mg/dL (0.0-0.2); BILIRUBIN,TOTAL 0.4 mg/dL (0.2-1.0); LIPASE 90 U/L (73-393); TOTAL PROTEIN, SERUM 6.7 g/dL (6.4-8.2); UREA NITROGEN, BLOOD 16 mg/dL (7-18)
[2016-12-29 15:47] LABS: APPEARANCE,URINE Slightly Cloudy (CLEAR); BILIRUBIN,URINE Negative (NEGATIVE); BLOOD, URINE Trace-intact Ery/uL (NEGATIVE); KETONES,URINE Negative (NEGATIVE); LEUKOCYTE ESTERASE ,URINE Small (NEGATIVE); NITRITE, URINE Negative (NEGATIVE); PH,URINE 5.5 (5.0-8.0); PROTEIN,URINE 30 mg/dl (NEGATIVE); UGLUCOSE Negative (NEGATIVE); UROBILINOGEN,URINE 0.2 EU/dL (0.2)
[2016-12-29 15:55] LABS: COLOR,URINE Dark Yellow (YELLOW)
[2016-12-29 16:00] LABS: BACTERIA,URINE Few /HPF (None Seen); RBC,URINE 0-2 /HPF (0-2); SQUAMOUS EPITHELIAL CELL,UR Rare /HPF (None Seen); URINE AMORPHOUS URATE Few /HPF (None Seen)
[2016-12-29 16:04] LABS: INR 1.11 (0.87-1.13); PROTHROMBIN TIME 11.6 SECS (9.5-12.7)
[2016-12-29] MEDS ORDERED: ACET160E13 GT (16:07)
[2016-12-29] MEDS ORDERED: DOCU100T2 GT (16:07)
--- NOTE | 2016-12-29 16:08 | NUR ---
CALLED [facility], DR MELÉNDEZ WAS PAGED.
[2016-12-29] MEDS ORDERED: CIPROFLOXACIN IV RTU 200 MG in PREMIX 1 EA IV STA (16:10)
[2016-12-29] MEDS: POTASSIUM CL. PREMIX PERIPHER. 50 ML IV SCH ×2 (16:20→17:30)
[2016-12-29] MEDS ORDERED: POTASSIUM CL. PREMIX PERIPHER. 100 ML ONE (16:27)
--- NOTE | 2016-12-29 17:13 | NUR ---
REPORT GIVEN TO AYLIN AARON FOR CONNOR
--- NOTE | 2016-12-29 17:17 | NUR ---
TOTAL 2 BAGS OF 50ML/10MEQ POTASSIUM GIVEN
--- NOTE | 2016-12-29 17:21 | NUR ---
PATIENT TRASPORTED TO TELE 1 VIA ACLS PROTOCOL. VSS
[2016-12-29 18:00] VITALS: BP 106/55
--- NOTE | 2016-12-29 18:00 | NUR ---
rn osman received patient from ER, on mechanical ventilatory support saturation 98% afebrile alert oriented x 3 G tube is clamped sacral wound, dressing done endorsed to nod
[2016-12-29 18:18] VITALS: BP 106/55
[2016-12-29 20:00] VITALS: BP_SYST 100; BP_SYST 93; BP_DIAS 41; BP_DIAS 49
[2016-12-29] MEDS ORDERED: POTASSIUM CL. PREMIX PERIPHER. 50 ML IV SCH (20:30)
[2016-12-29] MEDS ORDERED: RENAL NOVASOURCE 1,000 ML BOTTLE GT PRN ×2 (20:30→20:51)
[2016-12-29] MEDS ORDERED: NUTRITIONAL SUPPLEMENT GT SCH (20:30)
[2016-12-29] MEDS ORDERED: LEVOFLOXACIN 500 MG /D5W 100ML 500 MG in PREMIX 1 EA IV ONE (20:30)
[2016-12-29] MEDS ORDERED: DIGOXIN INJ 0.5 MG/2 ML AMPUL IV ONE (21:00)
[2016-12-29] MEDS ORDERED: ACETAMINOPHEN 650 MG/20.3 ML UDC PO PRN (21:00)
[2016-12-29] MEDS: METOPROLOL TARTRATE 25 MG TABLET GT SCH (22:36)
[2016-12-29] MEDS: METOCLOPRAMIDE HCL 10 MG/10 ML UDC GT SCH (22:37)
[2016-12-29] MEDS: LEVETIRACETAM SOL (5 ML) 100 MG/ML UDC GT SCH (22:37)
[2016-12-29] MEDS: DOCUSATE SODIUM LIQ 100 MG/10 ML UDC GT SCH (22:37)
[2016-12-29] MEDS: SILDENAFIL CITRATE 20 MG TABLET GT SCH (22:38)
[2016-12-29] MEDS: LACTULOSE 10 G/15 ML UDC (PYXIS) GT SCH (22:38)
[2016-12-29] MEDS: MIDODRINE HCL (5MG) 5 MG TABLET PO SCH (22:38)
[2016-12-29] MEDS: SEVELAMER CARBONATE 0.8 GM POWD.PACK GT SCH (22:38)
[2016-12-29] MEDS: PROSOURCE / PROSTAT (PYXIS) 30 ML UDC GT SCH (22:52)
[2016-12-30] VITALS: BP 100/47
[2016-12-30] MEDS: METOCLOPRAMIDE HCL 10 MG/10 ML UDC GT SCH ×4 (03:41→21:03)
[2016-12-30 04:00] VITALS: BP 105/55
[2016-12-30] MEDS: MIDODRINE HCL (5MG) 5 MG TABLET PO SCH ×3 (04:52→21:04)
[2016-12-30] MEDS: SILDENAFIL CITRATE 20 MG TABLET GT SCH ×3 (04:55→21:04)
[2016-12-30] MEDS: SEVELAMER CARBONATE 0.8 GM POWD.PACK GT SCH ×3 (04:56→21:03)
[2016-12-30] MEDS: PROSOURCE / PROSTAT (PYXIS) 30 ML UDC GT SCH ×2 (04:56→12:48)
--- NOTE | 2016-12-30 05:50 | NUR ---
TUBE FITTER: CHRONIC VENT TRACH PT. REMAINED ALERT AND AWAKE. ABLE TO MAKE NEEDS KNOWN VIA MOUTHING OF WORDS AND GESTURES. TOLERATING VENT SETTINGS ORDERED WT NO ACUTE DISTRESS. NO C/O PAIN. ON S/P PARACENTESIS WT NO ACTIVE BLEEDING ON RT. LOWER ABDOMINAL SIDE. REMAINED CONTROLLED A. FIB ON TELE MONITOR THROUGHOUT THE SHIFT SHORTLY AFTER GIVEN DIGOXIN. AFEBRILE. TOLERATING GTF WT NO RESIDUAL. HAD 2 EPISODES OF MODERATE AMT. OF SOFT/DIARRHEA YELLOW STOOLS. GOOD SKIN CARE RENDERED. ALL NEEDS MET. SAFETY/SEIZURE PRECAUTION NOTED AT ALL TIMES.
--- NOTE | 2016-12-30 07:15 | NUR ---
WHITNEY RN INITIAL NOTES: REC'D PT AWAKE ON BED, NOT IN ANY DISTRESS, A/O, ABLE TO MOUTHS WORDS. ON PRESCRIBED MV VIA TRACH, SATURATING 100%. ON TELEMONITOR, CONTROLLED AFIB. ON TUBE FEEDING NOVASOURCE X 50 CC/HR INFUSING WELL, NO RESIDUAL NOTED UPON CHECKING. PROVIDED COMFORT & SAFETY MEASURES. CALL LIGHT PLACED W/IN REACH. BED KEPT LOW & IN LOCKED POS. WILL CONTINUE TO MONITOR. Addendum: 12/30/16 at 1208 by ARCELIA ARMENDARIZ RN CORRECTION [id number]: ON TUBE FEEDING, NOVASOURCE X 50 CC/HR, CLAMPED. TRIED FLUSHING THE G-TUBE, CLOGGED. CALLED [facility], SPOKE W/ THE RN SHIPYARD HELPER, STATED THAT PT WAS RECEIVING TUBE FEEDING VIA J-TUBE. FLUSHED J-TUBE, NO RESISTANCE NOTED, NO RESIDUAL UPON CHECKING. TUBE FEEDING HOOKED ON J-TUBE.
[2016-12-30 08:00] VITALS: BP 99/43
--- NOTE | 2016-12-30 08:40 | NUR ---
RN NOTES: POTASSIUM IV REASSESSMENT WAS NOT DONE FROM PREVIOUS SHIFT. IT WAS DOCUMENTED THAT ON 12/29/16 1717H 2 BAGS OF 50ML/10 MEQ POTASSIUM WAS GIVEN. CLEARED ALERTS ON EMAR FOR SAFETY DRUG ADMINISTRATION.
[2016-12-30] MEDS: VIT B CMPLX 3/FA/VIT C/BIOTIN 1 TAB TABLET GT SCH (08:43)
[2016-12-30] MEDS: LEVETIRACETAM SOL (5 ML) 100 MG/ML UDC GT SCH ×2 (08:44→21:02)
[2016-12-30] MEDS: CALCITRIOL 0.25 MCG CAPSULE GT SCH (08:44)
[2016-12-30] MEDS: BUMETANIDE (1 MG) 1 MG TABLET GT SCH (08:44)
[2016-12-30] MEDS: PANTOPRAZOLE 40 MG/PACK PACK GT SCH (08:44)
[2016-12-30] MEDS: METOPROLOL TARTRATE 25 MG TABLET GT SCH ×2 (08:45→21:03)
[2016-12-30] MEDS: DOCUSATE SODIUM LIQ 100 MG/10 ML UDC GT SCH ×2 (08:45→21:01)
[2016-12-30] MEDS: LACTULOSE 10 G/15 ML UDC (PYXIS) GT SCH ×2 (08:45→21:01)
[2016-12-30 12:00] VITALS: BP 108/49
[2016-12-30 16:00] VITALS: BP 93/54
[2016-12-30] MEDS: NYSTATIN CREAM 15 GM TUBE TP SCH (17:14)
[2016-12-30] MEDS: HYDROGEL DRESSING 90 GM TUBE TP SCH (17:14)
--- NOTE | 2016-12-30 19:00 | NUR ---
WHITNEY RN CLOSING NOTES: NO ACUTE CHANGES NOTED W/IN SHIFT. PT TOLERATED PRESCRIBED MV SETTINGS, SATURATING 100%. ON TELEMONITOR, STILL CONTROLLED AFIB. PEG TUBE KEPT PATENT & INTACT, ON CONT TUBE FEEDING VIA J-TUBE NOVASOURCE X 30 CC/HR TOLERATED WELL, NO RESIDUAL NOTED W/IN SHIFT. G-TUBE STILL CLOGGED. KEPT WELL RESTED. NEEDS ATTENDED. SUCTIONED SECRETIONS. ISOLATION PREC OBSERVED. CALL LIGHT PLACED W/IN REACH. HD DONE W/ 1L OUTPUT. BED KEPT LOW & IN LOCKED POS. ENDORSED TO PM RN FOR CONNOR. Addendum: 12/30/16 at 2138 by ARCELIA ARMENDARIZ RN ADDENDUM: PER SON REQUEST, CONCRETE MIXER OPERATOR CONSULT (toenails and). ENDORSED TO PM RN.
[2016-12-30 20:00] VITALS: BP 120/62
--- NOTE | 2016-12-30 20:00 | NUR ---
WHITNEY RN NOTES RECEIVED PTS ON BED REMAINS ON VENT AC SETTINGS WELL TOLERATED , ON TELE AFIB ON THE MONITOR , V/S STABLE AFEBRILE , NO SOB NO DISTRESS NOTED NO COMPLAIN OF PAIN AT THIS TIME , SON AT BEDSIDE UPDATED WITH PTS CONDITION , HOB ELEVATED FOR ASPIRATION PRECAUTION , SUCTION SECRETION DONE AND PRN , ALL NEEDS ATTENDED TOO ALL DUE MEDS GIVEN ORDERED ON JT FEEDING OF NOVASOURCE AT 30CC/HR WELL TOLERATED NO RESIDUAL NOTED .TURNED AND REPOSITION Q2 HOURS FOR WOUND MGT . WILL CONTINUE TO MONITOR PTS.
[2016-12-30] MEDS: MUPIROCIN OINT 2% 22 GM TUBE SCH (21:08)
[2016-12-30] MEDS: HEPARIN SODIUM, PORCINE 5000 UNITS/1 ML VIAL SQ SCH (21:09)
[2016-12-30] MEDS: LEVOFLOXACIN 250 MG /D5W 50 ML 250 MG in PREMIX 1 EA IV SCH (21:10)
[2016-12-31] VITALS (8 sets, daily range): BP systolic 90–110; BP diastolic 40–49
[2016-12-31] MEDS: METOCLOPRAMIDE HCL 10 MG/10 ML UDC GT SCH ×4 (03:22→20:16)
[2016-12-31] MEDS: SILDENAFIL CITRATE 20 MG TABLET GT SCH ×3 (04:17→20:23)
[2016-12-31] MEDS: MIDODRINE HCL (5MG) 5 MG TABLET PO SCH ×3 (04:17→20:23)
[2016-12-31] MEDS: SEVELAMER CARBONATE 0.8 GM POWD.PACK GT SCH ×3 (04:19→20:17)
[2016-12-31] MEDS: RENAL NOVASOURCE 1,000 ML BOTTLE GT PRN ×2 (04:59→15:11)
[2016-12-31 06:23] LABS: BASOPHILS % (AUTO) 0.5 % (0.0-2.0); EOSINOPHILS # (AUTO) 0.1 /CMM (0.0-0.7); EOSINOPHILS % (AUTO) 0.7 % (0.0-6.0); HEMATOCRIT 29 % (33-45); HEMOGLOBIN 9.7 g/dL (11.5-14.8); LYMPHOCYTES # (AUTO) 1.6 /CMM (0.8-4.8); LYMPHOCYTES % (AUTO) 20.1 % (20.0-44.0); MEAN CORPUSCULAR HEMOGLOBIN 33 PG (26.0-33.0); MEAN CORPUSCULAR HGB CONC 33 g/dl (31.0-36.0); MEAN CORPUSCULAR VOLUME 100 fL (82-100); MONOCYTES # (AUTO) 0.8 /CMM (0.1-1.30); MONOCYTES % (AUTO) 10.6 % (2.0-12.0); NEUTROPHILS # (AUTO) 5.3 /CMM (1.8-8.9); NEUTROPHILS % (AUTO) 68.1 % (43.0-81.0); PLATELET COUNT (AUTO) 216 /CMM (150-450); RDW COEFFICIENT OF VARIATION 20.4 (11.5-15.0); RED BLOOD CELL COUNT(AUTO) 2.94 MIL/uL (4.0-5.2); WHITE BLOOD COUNT (AUTO) 7.8 K/uL (4.3-11.0)
--- NOTE | 2016-12-31 06:45 | NUR ---
WHITNEY RN NOTES PTS REMAINS ON BED AWAKE ALERT AND RESPONSIVE , REMAINS ON VENT AC SETTING WELL TOLERATED , NO SIGNIFICANT CHANGE NOTED AT THIS TIME , WILL ENDORSE TO RN DAY SHIFT FOR CONTINUITY OF CARE.
--- NOTE | 2016-12-31 06:48 | NUR ---
WOUND CARE CONSULT PATIENT CURRENTLY BEING FOLLOWED BY SURGICAL TEAM. WILL DEFER TREATMENT PLANS TO SURGEON AT THIS TIME. ALL SKIN MANAGEMENT AND PREVENTION MEASURES NOTED TO BE IN PLACE.
[2016-12-31 06:58] LABS: CALCIUM, SERUM 7.8 mg/dL (8.5-10.1); CARBON DIOXIDE 31 mmol/L (21-32); CHLORIDE 103 mmol/L (98-107); CREATININE 1.4 mg/dL (0.6-1.3); GLUCOSE 121 mg/dL (74-106); MAGNESIUM 1.9 mg/dL (1.8-2.4); PHOSPHORUS 1.6 mg/dL (2.5-4.9); POTASSIUM 3.3 mmol/L (3.5-5.1); SODIUM SERUM 140 mmol/L (136-145); UREA NITROGEN, BLOOD 18 mg/dL (7-18)
--- NOTE | 2016-12-31 07:10 | NUR ---
WHITNEY INITIAL RN NOTE: RECEIVED PT AWAKE IN BED, NONVERBAL, MOUTHS WORDS. NO S/S TO PAIN OR DISCOMFORT. PATIENT IS TRACH DEPENDENT WITH PORTEX #8 AC 14 TV 500 FI02 40% PEEP 5. NO S/S OF SOB OR RESPIRATORY DISTRESS. ON TELE MONITOR WITH AFIB. SKIN WARM TO TOUCH. IV LINES INTACT AND PATENT. JG TUBE PATENT WITH NO RESIDUALS, RUNNING NOVASOURCE AT 30ML/HR. ISOLATION PRECAUTIONS IN PLACE. BED LOW, LOCKED WITH CALL LIGHT WITHIN REACH. ALL NEEDS MET AND ANTICIPATED. WILL CONT TO MONITOR.
[2016-12-31] MEDS: LEVETIRACETAM SOL (5 ML) 100 MG/ML UDC GT SCH ×2 (08:18→20:17)
[2016-12-31] MEDS: DOCUSATE SODIUM LIQ 100 MG/10 ML UDC GT SCH ×2 (08:18→20:16)
[2016-12-31] MEDS: LACTULOSE 10 G/15 ML UDC (PYXIS) GT SCH ×2 (08:18→20:17)
[2016-12-31] MEDS: BUMETANIDE (1 MG) 1 MG TABLET GT SCH (08:18)
[2016-12-31] MEDS: PROSOURCE / PROSTAT (PYXIS) 30 ML UDC GT SCH (08:19)
[2016-12-31] MEDS: VIT B CMPLX 3/FA/VIT C/BIOTIN 1 TAB TABLET GT SCH (08:19)
[2016-12-31] MEDS: HEPARIN SODIUM, PORCINE 5000 UNITS/1 ML VIAL SQ SCH ×2 (08:19→20:37)
[2016-12-31] MEDS: CALCITRIOL 0.25 MCG CAPSULE GT SCH (08:19)
[2016-12-31] MEDS: MUPIROCIN OINT 2% 22 GM TUBE SCH ×2 (08:20→20:39)
[2016-12-31] MEDS: HYDROGEL DRESSING 90 GM TUBE TP SCH (08:20)
[2016-12-31] MEDS: METOPROLOL TARTRATE 25 MG TABLET GT SCH ×2 (08:21→20:22)
[2016-12-31] MEDS: LACTOBACILLUS RHAMNOSUS GG 1 EACH CAP.SPRINK PO SCH (08:21)
[2016-12-31] MEDS: NYSTATIN CREAM 15 GM TUBE TP SCH ×2 (08:22→16:53)
[2016-12-31] MEDS: PANTOPRAZOLE 40 MG/PACK PACK GT SCH (08:22)
--- NOTE | 2016-12-31 10:45 | NUR ---
WHITNEY RN NOTE: DR. MELÉNDEZ NOTIFIED OF CLOGGED JG TUBE. PER DR. MELÉNDEZ, WILL CONTACT GI. WILL CONT TO MONITOR.
--- NOTE | 2016-12-31 14:15 | NUR ---
WHITNEY RN NOTE: J-TUBE CLOGGED. OK PER JERAMIE TO USE G-TUBE.
--- NOTE | 2016-12-31 14:50 | NUR ---
WHITNEY RN NOTE: LABS 12/31/16 06:01 PHOSPHORUS [phone] RENVELA 0.8 GM POWDER PACKET HELD.
--- NOTE | 2016-12-31 16:55 | NUR ---
WHITNEY RN NOTE: ASHLEY YOON SEEN PATIENT AT BEDSIDE AND OK TO CONT USING G-TUBE.
--- NOTE | 2016-12-31 19:19 | NUR ---
[facility] WITH [facility]. VENT ALARM WORKING AND AUDIBLE, VENT PLUGGED INTO RED OUTLET. TRACH SECURE IN AND IN PROPER POSITION, CUFF CHECKED LITHOGRAPHIC GENERAL WORKER. SXN MODERATE AMOUNT OF YELLOW THICK SECRETIONS. BILATERAL BS NOTED. NO RESPIRATORY DISTRESS NOTED AT THIS TIME. AMBU BAG AT [facility], WILL CONTINUE TO MONITOR.
--- NOTE | 2016-12-31 19:55 | NUR ---
WHITNEY RN CLOSING NOTES: NO ACUTE CHANGES DURING SHIFT. ALL ORDERS CARRIED OUT. BED LOW, LOCKED WITH CALL LIGHT WITHIN REACH. ISOLATION PREC OBSERVED. REPORT GIVEN TO NIGHT NURSE FOR CONNOR.
--- NOTE | 2016-12-31 20:00 | NUR ---
MANAGER ENGLISH NOTES RECEIVED PTS ON BED AWAKE ALERT AND RESPONSIVE ABLE TO MOUTH WORD NEEDS .ON TELE AFIB ON THE MONITOR , REMAINS ON VENT AC SETTINGS ON THE MONITOR .WELL TOLERATED, HOB ELEVATED FOR ASPIRATION PRECAUTION , SUCTION SECRETION DONE AND PRN, WITH GT FEEDING WILL TOLERATED NO RESIDUAL NOTED, TURNED AND REPOSITION Q2 HRS AND PRN FOR WOUND MGT ,ALL DUE MEDS GIVEN ORDERED V/S STABLE AFEBRILE ,ALL NEEDS ATTENDED TOO CALL LIGHT WITHIN REACH KEPT PTS CLEAN DRY AND COMFORTABLE.
[2016-12-31] MEDS: LEVOFLOXACIN 250 MG /D5W 50 ML 250 MG in PREMIX 1 EA IV SCH (20:37)
[2017-01-01] VITALS (7 sets, daily range): BP systolic 95–110; BP diastolic 46–58
[2017-01-01] MEDS: METOCLOPRAMIDE HCL 10 MG/10 ML UDC GT SCH ×3 (03:37→17:26)
[2017-01-01] MEDS: SILDENAFIL CITRATE 20 MG TABLET GT SCH ×3 (04:03→21:24)
[2017-01-01] MEDS: SEVELAMER CARBONATE 0.8 GM POWD.PACK GT SCH ×3 (04:04→21:25)
[2017-01-01] MEDS: MIDODRINE HCL (5MG) 5 MG TABLET PO SCH ×3 (05:14→21:25)
--- NOTE | 2017-01-01 07:15 | NUR ---
RN INITIAL NOTE PATIENT RECEIVED IN BED, AWAKE. PT IS ALERT AND ORIENTED, NON VERBAL-MOUTHS WORDS. CONTROLLED AFIB ON TELE MONITOR WITH HEART RATE 73. PATIENT HAS TRACH, PROTEX#8, VENT SETTINGS: AC-14, TV-500, FI02-40, PEEP-5. NO S/S OF RESPIRATORY DISTRESS OR SOB. SATING WELL WITH THESE SETTINGS. NGTUBE PATENT, PLACEMENT CONFIRMED. TOLERATING FEEDING WELL. IV SITE FLUSHED, PATENT. SKIN IS WARM AND DRY TO TOUCH. SAFETY PRECAUTIONS IMPLEMENTED, BED IN LOCKED, LOW POSITION WITH TWO SIDE RAILS UP. SCHEDULED FOR HD TODAY. WILL CONTINUE TO MONITOR CLOSELY.
[2017-01-01] MEDS: VIT B CMPLX 3/FA/VIT C/BIOTIN 1 TAB TABLET GT SCH (08:27)
[2017-01-01] MEDS: CALCITRIOL 0.25 MCG CAPSULE GT SCH (08:27)
[2017-01-01] MEDS: LEVETIRACETAM SOL (5 ML) 100 MG/ML UDC GT SCH ×2 (08:27→21:24)
[2017-01-01] MEDS: LACTOBACILLUS RHAMNOSUS GG 1 EACH CAP.SPRINK PO SCH (08:27)
[2017-01-01] MEDS: DOCUSATE SODIUM LIQ 100 MG/10 ML UDC GT SCH ×2 (08:27→21:24)
[2017-01-01] MEDS: LACTULOSE 10 G/15 ML UDC (PYXIS) GT SCH ×2 (08:27→21:24)
[2017-01-01] MEDS: BUMETANIDE (1 MG) 1 MG TABLET GT SCH (08:27)
[2017-01-01] MEDS: METOPROLOL TARTRATE 25 MG TABLET GT SCH ×2 (08:28→21:25)
[2017-01-01] MEDS: PROSOURCE / PROSTAT (PYXIS) 30 ML UDC GT SCH (08:29)
[2017-01-01] MEDS: MUPIROCIN OINT 2% 22 GM TUBE SCH ×2 (08:29→21:31)
[2017-01-01] MEDS: HEPARIN SODIUM, PORCINE 5000 UNITS/1 ML VIAL SQ SCH ×2 (08:31→21:28)
[2017-01-01] MEDS: NYSTATIN CREAM 15 GM TUBE TP SCH ×2 (08:32→16:10)
[2017-01-01] MEDS: HYDROGEL DRESSING 90 GM TUBE TP SCH (08:32)
[2017-01-01] MEDS ORDERED: PANTOPRAZOLE 40 MG/PACK PACK GT SCH (09:00)
[2017-01-01] MEDS ORDERED: PANTOPRAZOLE 40 MG VIAL IV SCH (09:00)
--- NOTE | 2017-01-01 12:00 | NUR ---
RN NOTE HELD RENVELA-PHOS LEVEL LOW
--- NOTE | 2017-01-01 13:30 | NUR ---
RN NOTE PATIENT RECEIVING HD, TECH STOPPED AT 200 OUT.
--- NOTE | 2017-01-01 19:15 | NUR ---
RN INITIAL NOTES RECEIVED PATIENT IN BED, RESTING COMFORTABLY, AROUSABLE WITH VERBAL AND TACTILE STIMULI. SON AT BEDSIDE, UPDATED WITH PLAN OF CARE NEEDED. WITH TRACH ON VENT, C/D/I, TOLERATING VENT SETTINGS WELL WITH NO DISTRESS, SATURATION KEPT AT 98%, AIRWAY SUCTIONED NEEDED. AFIB ON TELE WITH HR OF 76. GTF INFUSING ORDERED, FLUSHED AND KEPT PATENT, NO GASTRIC RESIDUAL NOTED. R AC G20, INTACT AND PATENT, ON SL. R IJ PERMACATH WITH DRESSING INTACT. PATIENT'S NEEDS ANTICIPATED AND MET. SAFETY AND COMFORT ENSURED. BED IN LOW AND LOCKED POSITION. WILL MONITOR CLOSELY. Addendum: 01/02/17 at 0402 by TRISHA OLIVA RN AFIB WITH BBB. G-J TUBE IN PLACE. G TUBE FLUSHED AND PATENT, GTF INFUSING ORDERED. JTUBE CLAMPED AND REPORTED TO BE CLOGGED.
[2017-01-01] MEDS ORDERED: FAMOTIDINE/PF INJ 20 MG/2 ML VIAL IV SCH (21:00)
[2017-01-01] MEDS: LEVOFLOXACIN 250 MG /D5W 50 ML 250 MG in PREMIX 1 EA IV SCH (21:24)
[2017-01-01] MEDS ORDERED: FAMOTIDINE/PF INJ 20 MG/2 ML VIAL IV ONE (21:30)
[2017-01-02] VITALS: BP 106/47
[2017-01-02] MEDS: METOCLOPRAMIDE HCL 10 MG/10 ML UDC GT SCH ×3 (00:17→12:08)
--- NOTE | 2017-01-02 01:15 | NUR ---
RN NOTES PATIENT HAD EPISODE OF VTACH, APPROXIMATELY 45 SECONDS FROM 01:07.38 TO 01:08.12. PATIENT ASSESSED PROMPTLY. PATIENT SLEEPING COMFORTABLY, EASILY AROUSABLE WITH VERBAL AND TACTILE STIMULI. PATIENT IS ASYMPTOMATIC, NO CHANGE IN LOC, ALERT AND ABLE TO MOUTH WORDS WITH NO C/O PAIN AND DISCOMFORT. VS STABLE, 103/42, 75. NO DISTRESS. WILL MONITOR CLOSELY.
[2017-01-02 04:00] VITALS: BP 106/55
[2017-01-02] MEDS: RENAL NOVASOURCE 1,000 ML BOTTLE GT PRN (05:36)
[2017-01-02] MEDS: MIDODRINE HCL (5MG) 5 MG TABLET PO SCH ×2 (05:37→12:06)
[2017-01-02] MEDS: SILDENAFIL CITRATE 20 MG TABLET GT SCH ×2 (05:37→12:06)
[2017-01-02] MEDS: SEVELAMER CARBONATE 0.8 GM POWD.PACK GT SCH (05:37)
--- NOTE | 2017-01-02 06:38 | NUR ---
RN CLOSING NOTES PATIENT WITH NO ACUTE DISTRESS OBSERVED OVERNIGHT. AFIB WITH BBB, HR OF 69. PATIENT TOLERATED VENT SETTINGS WELL, AIRWAY SUCTIONED NEEDED. GTF TOLERATED WELL. WOUND CARE RENDERED, TRACH CARE DONE. PATIENT KEPT CLEAN AND DRY. TURNED AND REPOSITIONED PATIENT. SAFETY AND COMFORT ENSURED. BED IN LOW AND LOCKED POSITIONED. HOB ELEVATED. WILL ENDORSE ACCORDINGLY FOR CONTINUITY OF CARE.
[2017-01-02 07:09] LABS: BASOPHILS % (AUTO) 0.4 % (0.0-2.0); EOSINOPHILS # (AUTO) 0.2 /CMM (0.0-0.7); EOSINOPHILS % (AUTO) 2.8 % (0.0-6.0); HEMATOCRIT 29 % (33-45); HEMOGLOBIN 9.4 g/dL (11.5-14.8); LYMPHOCYTES # (AUTO) 1.5 /CMM (0.8-4.8); LYMPHOCYTES % (AUTO) 18.4 % (20.0-44.0); MEAN CORPUSCULAR HEMOGLOBIN 33 PG (26.0-33.0); MEAN CORPUSCULAR HGB CONC 33 g/dl (31.0-36.0); MEAN CORPUSCULAR VOLUME 99 fL (82-100); MONOCYTES # (AUTO) 0.7 /CMM (0.1-1.30); MONOCYTES % (AUTO) 8.9 % (2.0-12.0); NEUTROPHILS # (AUTO) 5.8 /CMM (1.8-8.9); NEUTROPHILS % (AUTO) 69.5 % (43.0-81.0); PLATELET COUNT (AUTO) 196 /CMM (150-450); RDW COEFFICIENT OF VARIATION 20.3 (11.5-15.0); RED BLOOD CELL COUNT(AUTO) 2.89 MIL/uL (4.0-5.2); WHITE BLOOD COUNT (AUTO) 8.3 K/uL (4.3-11.0)
--- NOTE | 2017-01-02 07:10 | NUR ---
RN INITIAL NOTE PATIENT RECEIVED IN BED, RESTING. NO S/S OF PAIN OR DISCOMFORT. PATIENT IS NONVERBAL, MOUTHS WORDS. PT HAS TRACH, PORTEX #8, WITH VENT SETTINGS FOLLOWS: AC-14, TV-500, FI02-40, PEEP-5. SATING WELL. NO S/S OF RESPIRATORY DISTRESS OR SOB. PT IS AFIB ON TELE MONITOR. SKIN IS WARM AND DRY TO TOUCH. IV SITE FLUSHED, PATENT. GTUBE FLUSHED, PLACEMENT VERIFIED. RUNNING NOVASOURCE AT 30ML/HR. TOLERATING FEEDING WELL. SAFETY PRECAUTIONS IMPLEMENTED. BED IN LOCKED, LOW POSITION. WILL MONITOR CLOSELY.
[2017-01-02 07:31] LABS: CALCIUM, SERUM 7.9 mg/dL (8.5-10.1); CARBON DIOXIDE 28 mmol/L (21-32); CHLORIDE 98 mmol/L (98-107); GLUCOSE 113 mg/dL (74-106); PHOSPHORUS 2.3 mg/dL (2.5-4.9); POTASSIUM 3.4 mmol/L (3.5-5.1); SODIUM SERUM 133 mmol/L (136-145); UREA NITROGEN, BLOOD 38 mg/dL (7-18)
[2017-01-02 08:00] VITALS: BP 99/44
[2017-01-02] MEDS: METOPROLOL TARTRATE 25 MG TABLET GT SCH (09:00)
[2017-01-02] MEDS: NYSTATIN CREAM 15 GM TUBE TP SCH (09:15)
[2017-01-02] MEDS: HYDROGEL DRESSING 90 GM TUBE TP SCH (09:15)
[2017-01-02] MEDS: MUPIROCIN OINT 2% 22 GM TUBE SCH (09:15)
[2017-01-02] MEDS: LACTULOSE 10 G/15 ML UDC (PYXIS) GT SCH (09:21)
[2017-01-02] MEDS: PROSOURCE / PROSTAT (PYXIS) 30 ML UDC GT SCH (09:21)
[2017-01-02] MEDS: DOCUSATE SODIUM LIQ 100 MG/10 ML UDC GT SCH (09:21)
[2017-01-02] MEDS: LACTOBACILLUS RHAMNOSUS GG 1 EACH CAP.SPRINK PO SCH (09:21)
[2017-01-02] MEDS: VIT B CMPLX 3/FA/VIT C/BIOTIN 1 TAB TABLET GT SCH (09:21)
[2017-01-02] MEDS: LEVETIRACETAM SOL (5 ML) 100 MG/ML UDC GT SCH (09:21)
[2017-01-02] MEDS: BUMETANIDE (1 MG) 1 MG TABLET GT SCH (09:21)
[2017-01-02] MEDS: CALCITRIOL 0.25 MCG CAPSULE GT SCH (09:26)
[2017-01-02] MEDS: HEPARIN SODIUM, PORCINE 5000 UNITS/1 ML VIAL SQ SCH (09:28)
[2017-01-02] MEDS ORDERED: FAMOTIDINE/PF INJ 20 MG/2 ML VIAL IV SCH ×2 (09:30→21:00)
[2017-01-02] MEDS ORDERED: LEVO250T2 PO (10:56)
[2017-01-02] MEDS ORDERED: Renal Novasource GT (10:56)
[2017-01-02] MEDS ORDERED: MUPI22OI7 (10:56)
[2017-01-02] MEDS ORDERED: Prosource GT (10:56)
[2017-01-02] MEDS ORDERED: ALBUMIN 25% 12.5 GM/50 ML BOTTLE IV ONE (11:00)
[2017-01-02] MEDS ORDERED: ALBUMIN 25% 12.5 GM in PREMIX 1 EA IV ONE (11:30)
[2017-01-02 12:00] VITALS: BP 96/38
--- NOTE | 2017-01-02 14:46 | NUR ---
RN NOTE PATIENT BEING DISCHARGED TO [facility], PAPERWORK COMPLETED, REPORT CALLED TO JAZMIN AT THE FACILITY. IV SITE DC'D ETA FOR TRANSPORTATION 1500
[2017-01-02 16:00] VITALS: BP 96/38
--- NOTE | 2017-01-02 16:15 | NUR ---
RN NOTE PATIENT LEFT VIA AMBULANCE. ID BAND AND TELE BOX REMOVED.
[2017-01-02] MEDS ORDERED: LEVOFLOXACIN (250MG) 250 MG TABLET PO SCH (21:00)
== END 2017-01-02 16:27 | DRG 393 ==
LOC: ER 13:13 → TELE1 18:34 → TELE-TD 18:46 → TELE1 12-31 12:26
PROVIDERS: ADMIT Nurse Practitioner Acute Care; ATTEND Nurse Practitioner Acute Care
PROC: 5A1945Z Respiratory Ventilation, 24-96 Consecutive Hours (ICD-10-PCS; principal; 2016-12-29)
PROC: 0W9G3ZX Drainage of Peritoneal Cavity, Percutaneous Approach, Diagnostic (ICD-10-PCS; 2016-12-29)
PROC: 5A1D60Z (ICD-10-PCS; 2016-12-30)
DX: K94.13 Enterostomy malfunction (principal); N18.6 End stage renal disease; E43 Unspecified severe protein-calorie malnutrition; R53.2 Functional quadriplegia; G93.40 Encephalopathy, unspecified; L89.154 Pressure ulcer of sacral region, stage 4; Z99.11 Dependence on respirator [ventilator] status; J96.10 Chronic respiratory failure, unspecified whether with hypoxia or hypercapnia; D68.59 Other primary thrombophilia; J81.1 Chronic pulmonary edema; J90 Pleural effusion, not elsewhere classified; J96.11 Chronic respiratory failure with hypoxia; R18.8 Other ascites; I12.0 Hypertensive chronic kidney disease with stage 5 chronic kidney disease or end stage renal disease; K74.69 Other cirrhosis of liver; Z99.2 Dependence on renal dialysis; R13.10 Dysphagia, unspecified; G40.909 Epilepsy, unspecified, not intractable, without status epilepticus; Z86.73 Personal history of transient ischemic attack (TIA), and cerebral infarction without residual deficits; Z88.5 Allergy status to narcotic agent; Z88.2 Allergy status to sulfonamides; Z88.0 Allergy status to penicillin; Z88.8 Allergy status to other drugs, medicaments and biological substances; D64.9 Anemia, unspecified; E11.22 Type 2 diabetes mellitus with diabetic chronic kidney disease; E78.5 Hyperlipidemia, unspecified; I27.2 Other secondary pulmonary hypertension; K21.9 Gastro-esophageal reflux disease without esophagitis; I48.91 Unspecified atrial fibrillation; E83.39 Other disorders of phosphorus metabolism; E87.70 Fluid overload, unspecified; L30.4 Erythema intertrigo; M89.9 Disorder of bone, unspecified; Z66 Do not resuscitate; Y73.1 Therapeutic (nonsurgical) and rehabilitative gastroenterology and urology devices associated with adverse incidents; Y92.129 Unspecified place in nursing home as the place of occurrence of the external cause; Y83.3 Surgical operation with formation of external stoma as the cause of abnormal reaction of the patient, or of later complication, without mention of misadventure at the time of the procedure
CPT/HCPCS: 31720; 36415; 71010-TC; 74000-TC; 76942-TC; 80048-TC; 80076-TC; 81000-TC; 82040-TC; 83690-TC; 83735-TC; 84100-TC; 85025-TC; 85730-TC; 87081-TC; 87086-TC; 90935-TC; 94003-TC; 94760-TC; 94762-TC; A4216; A4606; A6248; A6403; J0744; J1160; J1644; J1953; J1956; J3480; J3490; J7050; J8597; P9047; Z7610

== ENCOUNTER 2017-01-04 15:32 | Inpatient (IN) | payer MEDICARE, OTHER ==
[~2017-01-04] VITALS: Ht 149.9 cm; Wt 60.3 kg
[~2017-01-04 15:32] MED LIST changes: +ACET160E13 GT; -ACET650S26 GT; -DOCU-270 GT; +DOCU100T2 GT; +MUPI22OI7; +Prosource GT; +Renal Novasource GT; -ZINC220C8 GT
--- NOTE | 2017-01-04 15:45 | NUR ---
BB PRIVATE EMS FROM [facility] FOR RUPTURED JTUBE-SENT BY DR CALIX. FAMILY MEMBER AT . SEEN BY MD FOR EVAL. VSS. SAFETY AND COMFORT MEASURES PROVIDED. WILL MONITOR.
--- NOTE | 2017-01-04 15:57 | NUR ---
PT REC'D TRACHED ON PORTEX SZ 8 ON NOTED SETTINGS GIVEN FROM TRANSPORT RT. NO RESP DISTRESS NOTED. CORPORATE PARALEGAL CUFF PRESSURE NOTED. SX'D THICK MOD AMT OF YELLOW SECRETIONS. VENT PLUGGED INTO RED OUTLET. ALARMS ARE SET AND AUDIBLE PER POLICY. AMBU BAG BEDSIDE. WILL CONTINUE TO MONITOR Addendum: 01/04/17 at 1608 by LAEX CANSECO RT Amended: Links added.
--- NOTE | 2017-01-04 16:03 | NUR ---
PER DR NEAL, PAGED DR YOON FOR GI CONSULT
--- NOTE | 2017-01-04 16:05 | NUR ---
EKG IN PROGRESS
--- NOTE | 2017-01-04 16:15 | NUR ---
MECHANICAL SPREADER OPERATOR AT BEDSIDE
[2017-01-04 16:23] LABS: BASOPHILS # (AUTO) 0.1 /CMM (0.0-0.2); BASOPHILS % (AUTO) 0.9 % (0.0-2.0); EOSINOPHILS # (AUTO) 0.2 /CMM (0.0-0.7); EOSINOPHILS % (AUTO) 2.6 % (0.0-6.0); HEMATOCRIT 29 % (33-45); HEMOGLOBIN 9.7 g/dL (11.5-14.8); LYMPHOCYTES # (AUTO) 1.3 /CMM (0.8-4.8); MEAN CORPUSCULAR HEMOGLOBIN 33 PG (26.0-33.0); MEAN CORPUSCULAR HGB CONC 33 g/dl (31.0-36.0); MEAN CORPUSCULAR VOLUME 99 fL (82-100); MONOCYTES # (AUTO) 0.7 /CMM (0.1-1.30); MONOCYTES % (AUTO) 9.4 % (2.0-12.0); NEUTROPHILS # (AUTO) 5.3 /CMM (1.8-8.9); NEUTROPHILS % (AUTO) 70.1 % (43.0-81.0); PLATELET COUNT (AUTO) 182 /CMM (150-450); RDW COEFFICIENT OF VARIATION 19.2 (11.5-15.0); RED BLOOD CELL COUNT(AUTO) 2.98 MIL/uL (4.0-5.2); WHITE BLOOD COUNT (AUTO) 7.6 K/uL (4.3-11.0)
--- NOTE | 2017-01-04 16:30 | NUR ---
MADE SEVERAL ATTEMPTS TO PAGE MICROWAVE SUPERVISOR PHYSICIAN FOR DR CALIX, MESSAGE CONTINUOUSLY LOOPS BACK WHEN OPTION FOR DOCTOR OR HOSPITAL IS SELECTED. UNABLE TO REACH ANSWERING SERVICE
[2017-01-04 16:34] LABS: CALCIUM, SERUM 8.1 mg/dL (8.5-10.1); CARBON DIOXIDE 28 mmol/L (21-32); CHLORIDE 103 mmol/L (98-107); CREATININE 1.5 mg/dL (0.6-1.3); GLUCOSE 99 mg/dL (74-106); POTASSIUM 3.7 mmol/L (3.5-5.1); SODIUM SERUM 135 mmol/L (136-145); UREA NITROGEN, BLOOD 30 mg/dL (7-18)
[2017-01-04 16:39] LABS: INR 1.04 (0.87-1.13); PROTHROMBIN TIME 11.2 SECS (9.5-12.7)
--- NOTE | 2017-01-04 17:07 | NUR ---
CALLED ANSWERING SERVICE FOR [facility] AND WAS ABLE TO REACH SOMEBODY. WAS INFORMED THEY ARE NOT AWARE OF WHO IS DISK RECOATER AT THIS TIME AND WILL GET BACK TO ME WHEN THEY CONFIRM
--- NOTE | 2017-01-04 17:15 | NUR ---
SPOKE WITH VIKAS WITH [facility] ANSWERING SERVICE. THEY STILL DO NOT KNOW WHO IS HEAD BOOKKEEPER
--- NOTE | 2017-01-04 17:34 | NUR ---
REPORT GIVEN TO XOCHITL VIERA FOR TELE ROOM 329
[2017-01-04] MEDS ORDERED: NUT.237L67 GT (17:58)
[2017-01-04] MEDS ORDERED: AMIN30LI2 GT (17:58)
[2017-01-04 18:49] VITALS: BP 89/39
--- NOTE | 2017-01-04 19:05 | NUR ---
lifts and cranes inspectorpatent prosecution attorney notes Admitted a 81 years old female patient via gurney accompanied by daughter Anne Marie and ER nurse and RT. Patient came in due to JT malfunction. No SOB or distress noted, on mechanical vent settings: TV 500, Peep 5, FI02 40%, AC 14, saturation of 100%, portex 8. No complaint of pain or discomfort noted. No facial grimace. Patient is able to comprehend. Afib heart rate of 97 on the monitor. IV in placed and intact. Endorsed to next shift RN to continue care and to page MD for admission orders. Vital signs checked and recorded.
[2017-01-04 20:00] VITALS: BP 95/66
--- NOTE | 2017-01-04 20:00 | NUR ---
RN NOTES RECEIVED PATIENT IN BED, ALERT AND AWAKE, NON-VERBAL, TRACH DEPENDENT, SATURATION 100%, NO DISTRESS, NO COMPLAIN OF PAIN, NO RESTLESSNESS, NO FACIAL GRIMACING, NOTED ABDOMINAL DISTENTION, REPOSITIONED FOR COMFORT, WILL PAGE MD FOR ADMISSION ORDERS. DAUGHTER AT THE BEDSIDE.
--- NOTE | 2017-01-04 20:02 | NUR ---
RN NOTES PLACED A CALL TO DR. ADAM FOR ADMISSION ORDERS, AWAITING CALL BACK
[2017-01-04] MEDS ORDERED: ONDANSETRON HCL/PF 4 MG/2 ML VIAL IV PRN (20:30)
[2017-01-04] MEDS ORDERED: IV D5/ 0.9% NACL 1,000 ML IV PRN (20:30)
--- NOTE | 2017-01-04 20:30 | NUR ---
RN NOTES RECEIVED ADMISSION ORDERS FROM DR. ADAM, NO CARY CATHETER PER MD. NOTIFIED DAUGHTER OF NEW ORDERS
[2017-01-04] MEDS ORDERED: ACETAMINOPHEN 650 MG/SUPP.RECT RC PRN (21:00)
[2017-01-04] MEDS: LEVETIRACETAM (500MG) 500 MG in IV NS 0.9% 100 ML IV SCH (21:35)
[2017-01-05] VITALS: BP_SYST 94; BP_SYST 98; BP_DIAS 48; BP_DIAS 55
[2017-01-05] MEDS: METOCLOPRAMIDE HCL 10 MG/2 ML VIAL IV SCH ×4 (00:19→17:00)
[2017-01-05 04:00] VITALS: BP_SYST 94; BP_SYST 98; BP_DIAS 48; BP_DIAS 55
[2017-01-05 06:46] LABS: BASOPHILS # (AUTO) 0.1 /CMM (0.0-0.2); BASOPHILS % (AUTO) 0.9 % (0.0-2.0); EOSINOPHILS # (AUTO) 0.2 /CMM (0.0-0.7); EOSINOPHILS % (AUTO) 2.8 % (0.0-6.0); HEMATOCRIT 29 % (33-45); HEMOGLOBIN 9.6 g/dL (11.5-14.8); LYMPHOCYTES # (AUTO) 1.3 /CMM (0.8-4.8); LYMPHOCYTES % (AUTO) 21.7 % (20.0-44.0); MEAN CORPUSCULAR HEMOGLOBIN 33 PG (26.0-33.0); MEAN CORPUSCULAR HGB CONC 33 g/dl (31.0-36.0); MEAN CORPUSCULAR VOLUME 99 fL (82-100); MONOCYTES # (AUTO) 0.6 /CMM (0.1-1.30); MONOCYTES % (AUTO) 9.7 % (2.0-12.0); NEUTROPHILS # (AUTO) 3.9 /CMM (1.8-8.9); NEUTROPHILS % (AUTO) 64.9 % (43.0-81.0); PLATELET COUNT (AUTO) 183 /CMM (150-450); RDW COEFFICIENT OF VARIATION 19.2 (11.5-15.0); RED BLOOD CELL COUNT(AUTO) 2.97 MIL/uL (4.0-5.2)
--- NOTE | 2017-01-05 06:46 | NUR ---
RN NOTES PATIENT IN AWAKE, VENTILATOR IN GOOD WORKING CONDITION, NO SOB, NO DISTRESS, NOT IN APPARENT PAIN, NO FACIAL GRIMACING, NO RESTLESSNESS, O2 SAT MAINTAINED AT 100%, LEFT HAND PERIPHERAL LINE IS PATENT AND INFUSING WELL, NEEDS ATTENDED, HEELS OFFLOADED, KEPT HOB ELEVATED, CALL LIGHT WITHIN REACH.
[2017-01-05 07:00] VITALS: BP 95/58
[2017-01-05 07:06] LABS: CALCIUM, SERUM 7.9 mg/dL (8.5-10.1); CARBON DIOXIDE 26 mmol/L (21-32); CHLORIDE 105 mmol/L (98-107); CREATININE 1.6 mg/dL (0.6-1.3); GLUCOSE 95 mg/dL (74-106); MAGNESIUM 2.3 mg/dL (1.8-2.4); PHOSPHORUS 3.3 mg/dL (2.5-4.9); POTASSIUM 4.1 mmol/L (3.5-5.1); SODIUM SERUM 139 mmol/L (136-145); UREA NITROGEN, BLOOD 30 mg/dL (7-18)
--- NOTE | 2017-01-05 07:40 | NUR ---
MS RN RECEIVED ON BED, A VENT DEPENDENT PATIENT,NOT IN ANY FORM OF DISTRESS, RESPIRATIONS EVEN AND UNLABORED,WILL MONITOR PATIENT.
[2017-01-05] MEDS: FAMOTIDINE/PF INJ 20 MG/2 ML VIAL IV SCH (08:28)
[2017-01-05] MEDS ORDERED: PANTOPRAZOLE 40 MG VIAL IV SCH (09:00)
--- NOTE | 2017-01-05 09:00 | NUR ---
ms rn am care done w/ security investigator.
[2017-01-05] MEDS: LEVETIRACETAM (500MG) 500 MG in IV NS 0.9% 100 ML IV SCH ×2 (09:39→21:13)
--- NOTE | 2017-01-05 11:00 | NUR ---
ms naveed was seen by dr. perez w/ orders made and carried out.
[2017-01-05] MEDS: HYDROGEL DRESSING 90 GM TUBE TP SCH (12:47)
[2017-01-05] MEDS: IV NS 0.9% 1,000 ML IV PRN (12:53)
--- NOTE | 2017-01-05 13:09 | NUR ---
SUPERVISOR PERSONNEL CLERKS RECEIVED WOUND CARE CONSULT FOR PATIENT, SURGICAL TEAM IS FOLLOWING FOR WOUNDS AT THIS TIME. WOUND CARE WILL DEFER TO SURGICAL TEAM FOR TREATMENT PLANS AT THIS TIME. PATIENT WITH CURRENT DENISE AT 8, ON [facility] BED FOR TREATMENT AND SKIN MANAGMENT, ALL PRESSURE ULCER PREVENTION MEASURES NOTED TO BE IN PLACE PER CURRENT PLAN OF CARE.
[2017-01-05] MEDS ORDERED: Z GUARD REMEDY 2 OZ OINT TP PRN (13:30)
[2017-01-05 16:00] VITALS: BP 93/41
--- NOTE | 2017-01-05 16:03 | NUR ---
ms rn on bed, no distress noted.
[2017-01-05] MEDS: Z GUARD REMEDY 2 OZ OINT TP SCH (17:04)
--- NOTE | 2017-01-05 19:30 | NUR ---
TELE/RN RECEIVE PATIENT APPEAR SLEEPING, APPEAR COMFORTABLE, NO SIGNS OF DISTRESS NOTED, VENT WORKING WELL, WILL MONITOR.
[2017-01-05 20:00] VITALS: BP 96/56
--- NOTE | 2017-01-05 23:23 | NUR ---
TELE/RN DR. YOON GI, HERE WITH ORDER FOR EGD AND PEG PLACEMENT WAS NOTED. CONSENT FROM SON OBTAINED.
[2017-01-06] VITALS (10 sets, daily range): BP systolic 85–114; BP diastolic 26–67
[2017-01-06] MEDS: METOCLOPRAMIDE HCL 10 MG/2 ML VIAL IV SCH ×4 (00:05→18:02)
--- NOTE | 2017-01-06 00:16 | NUR ---
TELE/RN PATIENT IS AWAKE AT THIS TIME, APPEAR COMFORTABLE, NO SIGNS OF DISTRESS NOTED, VENT WORKING WELL. WILL CONTINUE TO MONITOR.
[2017-01-06] MEDS: IV NS 0.9% 1,000 ML IV PRN ×2 (02:18→16:38)
--- NOTE | 2017-01-06 06:56 | NUR ---
TELE/RN AWAKE AT THIS TIME, APPEAR COMFORTABLE, NO SIGNS OF DISTRESS NOTED, ALL NEEDS ATTENDED AT THIS TIME. WILL CONTINUE TO MONITOR.
--- NOTE | 2017-01-06 07:30 | NUR ---
ANIMAL KILLER NOTES PT IN BED, RESTING, AWAKE, EYES OPEN, ALERT, MOUTHS WORDS, NO COMPLAINT OF PAIN, NOT IN DISTRESS, CALL LIGHT WITHIN REACH, IV FLUIDS INFUSING WELL.
[2017-01-06] MEDS: HYDROGEL DRESSING 90 GM TUBE TP SCH (08:57)
[2017-01-06] MEDS: Z GUARD REMEDY 2 OZ OINT TP SCH (08:57)
[2017-01-06] MEDS: FAMOTIDINE/PF INJ 20 MG/2 ML VIAL IV SCH (09:03)
[2017-01-06] MEDS ORDERED: DEXTROSE 50%-WATER 50 ML DISP.SYRIN IVP ONE (09:30)
--- NOTE | 2017-01-06 10:00 | NUR ---
ASSOCIATE TECHNICIAN NOTES PT S/P EGD WITH PEG PLACEMENT BY DR. YOON DONE AT BEDSIDE, PT TOLERATED PROCEDURE WELL, BS PRIOR TO SX IS 56, DR. ELLISON ORDERED TO ADMINISTER D50/50, NOTED AND CARRIED OUT, BS WENT UP TO [address]. PER DR. YOON, OK TO USE NEW GT.
[2017-01-06] MEDS: LEVETIRACETAM (500MG) 500 MG in IV NS 0.9% 100 ML IV SCH ×2 (10:28→20:44)
--- NOTE | 2017-01-06 13:43 | NUR ---
RN MS NOTES SPOKE WITH DR. CHARLA MD INFORMED OF PT'S EPISODE OF LOW BP AND LOW BS PRIOR TO PROCEDURE, NO NEW ORDER GIVEN, PER , OK TO CONTINUE WITH PREVIOUS GT FEEDING, NOTED AND CARRIED OUT.
[2017-01-06] MEDS ORDERED: RENAL NOVASOURCE 1,000 ML BOTTLE GT PRN (14:30)
[2017-01-06] MEDS: MUPIROCIN OINT 2% 22 GM TUBE SCH (20:45)
[2017-01-07] VITALS: BP 90/42
[2017-01-07] MEDS: METOCLOPRAMIDE HCL 10 MG/2 ML VIAL IV SCH ×4 (00:14→17:05)
[2017-01-07 04:00] VITALS: BP 98/41
[2017-01-07] MEDS: IV NS 0.9% 1,000 ML IV PRN (06:11)
--- NOTE | 2017-01-07 06:30 | NUR ---
PERSONAL LINES INSURANCE AGENT NOTES AWAKE & ALERT WITH SAME VENT SETTINGS. NOT IN ANY DISTRESS. NO SOB NOTED. DENIES ANY PAIN OR DISCOMFORT AT THIS TIME. ON TELE AFIB @ 76 WITH IVF & GTF INFUSING WELL. AM CARE DONE. MONITORED ACCORDINGLY. CALL LIGHT WITHIN REACH. BED IN LOWEST POSITION. SR UP X 3 WITH BED ALARM ON FOR SAFETY. WILL ENDORSE TO NEXT SHIFT.
[2017-01-07 07:30] VITALS: BP 101/50
--- NOTE | 2017-01-07 07:30 | NUR ---
RING STAMPER NOTES: - rECEIVED ON BED , ALERT & AWAKE, ABLE TO TALK SOFTLY, BUT NOT COMPREHENSIBLE ENOUGH, ON VENT WITH GISELLA E, SETTINGS, NON-LABORED RESPIRATIONS, ON GT FEEDING , PATIENT DENIES PAIN WHEN ASKED.
[2017-01-07] MEDS ORDERED: ZINC SULFATE 220 MG CAPSULE PO SCH (09:00)
[2017-01-07] MEDS: FAMOTIDINE/PF INJ 20 MG/2 ML VIAL IV SCH (09:05)
[2017-01-07] MEDS: LEVETIRACETAM (500MG) 500 MG in IV NS 0.9% 100 ML IV SCH ×2 (09:06→20:30)
[2017-01-07] MEDS: MUPIROCIN OINT 2% 22 GM TUBE SCH ×2 (09:07→21:05)
[2017-01-07] MEDS: Z GUARD REMEDY 2 OZ OINT TP SCH (09:08)
[2017-01-07] MEDS: HYDROGEL DRESSING 90 GM TUBE TP SCH (09:08)
[2017-01-07] MEDS: PROSOURCE / PROSTAT (PYXIS) 30 ML UDC GT SCH ×2 (09:09→17:05)
--- NOTE | 2017-01-07 10:00 | NUR ---
SPRINKLING SYSTEM INSTALLER Notes: - Called RAYMOND, son of patient & was explained in Azeri the need for the debridement to be performed by Dr. De Los Santos & gave the phone consent witnessed by 2 RN'S as per written consent.
--- NOTE | 2017-01-07 14:00 | NUR ---
ROTARY DRILL RIG OPERATOR NOTES: - Another son came by & stayed with patient x2 hours, & talked to patient. He was also informed of the coming debridement which Rolando , another son gave phone consent. Dressing change was done with sacral wound clean,& dry no exudate . A PRN Tylenol was inserted rectally for mild pain prior to dressing change.
--- NOTE | 2017-01-07 17:58 | NUR ---
GOLF CADDIE Notes: - Called & gave report to AYLIN Robledo of [facility] at [phone]. , & also faxed Med [facility]. as per request of AYLIN Robledo at [facility]. .
--- NOTE | 2017-01-07 18:16 | NUR ---
CREAM RIPENER Notes: - - At this time, patient is still on vent with same settings, with GT in connected to Novasource at 30ml/hr via pump, with enlarged stomach ,no nausea nor vomiting, with dry dressing at GT SITE, non-labored respirations, made comfortable, son still at bedside.
--- NOTE | 2017-01-07 19:30 | NUR ---
FOOT SETTER OPENING NOTES: PATIENT IN BED, AOX1, OPENS EYES SPONTANEOUSLY, UNDERSTANDS ITALIAN, NON VERBAL (ON TRACH) BUT NODS/ GESTURES TO COMMUNICATE. [facility] THE FF SETTINGS: TRACHE : PORTEX SIZE 8, AC: 14, TV: 500, FIO2: 40%, PEEP: 5. ON TELE MONITORING WITH A.FIB AT RATE OF 90S. ON G TUBE FEEDING OF NOVASOURCE RUNNING AT 30 ML/HR, PATIENT IS TOLERATING FEEDING WELL, NO RESIDUAL NOTED AT THIS TIME. PIV OVER L WRIST INTACT AND PATENT TO FLUSH. RCW PERMACATH WITH CLEAN AND INTACT DRESSING. PROVIDED FOR COMFORT AND SAFETY. MAINTAINED HOB ELEVATED AT ALL TIMES. WILL CONT TO MONITOR.
[2017-01-07 20:00] VITALS: BP 118/41
--- NOTE | 2017-01-07 20:45 | NUR ---
RN NOTES: DRESSING CHANGED OVER SACRAL AREA. PICTURES TAKEN. HYGIENE/ SKIN PROTECTIVE MEASURES RENDERED.
--- NOTE | 2017-01-07 21:12 | NUR ---
RN NOTES: MED RESPONSE CALLED, IMPLEMENTATION ARCHITECT TIME DELAYED TO 2230 PM.
[2017-01-07 23:56] VITALS: BP 109/54
--- NOTE | 2017-01-07 23:56 | NUR ---
PRINCIPAL SOFTWARE ARCHITECT NOTES: MED RESPONSE CAME WITH RT TO METEOROLOGY INSTRUCTOR PATIENT, WHO WILL BE TRANSFERRED TO [facility]. REPORT GIVEN TO RN AT [facility]. VS TAKEN, STABLE. HEPLOCK AND TELE BOX REMOVED. DISCHARGE CARE DONE. BEDSIDE REPORT GIVEN TO MED RESPONSE EMT/ RT. PATIENT WAS DISCHARGED FROM TELE FLOOR, AOX1, IN STABLE CONDITION VIA GURNEY, VIA ACLS PROTOCOL.
== END 2017-01-07 23:55 | DRG 393 ==
LOC: ER 15:34 → TELE 18:10
PROVIDERS: ADMIT Internal Medicine; ATTEND Internal Medicine
PROC: 5A1945Z Respiratory Ventilation, 24-96 Consecutive Hours (ICD-10-PCS; principal; 2017-01-04)
PROC: 0DH63UZ Insertion of Feeding Device into Stomach, Percutaneous Approach (ICD-10-PCS; 2017-01-04)
DX: K94.13 Enterostomy malfunction (principal); N18.6 End stage renal disease; R53.2 Functional quadriplegia; E43 Unspecified severe protein-calorie malnutrition; L89.154 Pressure ulcer of sacral region, stage 4; Z99.11 Dependence on respirator [ventilator] status; D68.59 Other primary thrombophilia; J90 Pleural effusion, not elsewhere classified; J96.11 Chronic respiratory failure with hypoxia; R18.8 Other ascites; E11.22 Type 2 diabetes mellitus with diabetic chronic kidney disease; Z99.2 Dependence on renal dialysis; D64.9 Anemia, unspecified; E78.5 Hyperlipidemia, unspecified; G40.909 Epilepsy, unspecified, not intractable, without status epilepticus; I48.91 Unspecified atrial fibrillation; I27.2 Other secondary pulmonary hypertension; K21.9 Gastro-esophageal reflux disease without esophagitis; K74.60 Unspecified cirrhosis of liver; M89.9 Disorder of bone, unspecified; R13.10 Dysphagia, unspecified; Y83.3 Surgical operation with formation of external stoma as the cause of abnormal reaction of the patient, or of later complication, without mention of misadventure at the time of the procedure; Z66 Do not resuscitate; Z79.899 Other long term (current) drug therapy; Z86.73 Personal history of transient ischemic attack (TIA), and cerebral infarction without residual deficits; Z88.5 Allergy status to narcotic agent; Z88.0 Allergy status to penicillin; Z88.2 Allergy status to sulfonamides; Z88.8 Allergy status to other drugs, medicaments and biological substances
CPT/HCPCS: 31720; 36415; 43761; 71010-TC; 80048-TC; 82962-TC; 83735-TC; 84100-TC; 85025-TC; 85730-TC; 87081-TC; 90935-TC; 94002-TC; 94003-TC; A4606; A6248; A6253; A6403; J1953; J2704; J2765; J3490; J7030; J7042; Z7610

== ENCOUNTER 2017-01-19 13:20 | Inpatient (IN) | payer MEDICARE, OTHER ==
[~2017-01-19] VITALS: Ht 134.6 cm; Wt 56.2 kg
[~2017-01-19 13:20] MED LIST changes: -ALLA266C2 TP; -MUPI22OI7; +NUT.237L67 GT; -NUTR100037 GT; -Prosource GT; -Renal Novasource GT
--- NOTE | 2017-01-19 13:20 | NUR ---
BIB PRIVATE EMT FROM [facility] FOR ABDOMINAL PARACENTESIS. NAD NOTED. PT IS ON VENTILATOR, RR EVEN AND UNLABORED. PENDING MD MUÑOZ.
[2017-01-19 13:49] VITALS: BP 115/52
--- NOTE | 2017-01-19 13:57 | NUR ---
PT PLACED ON ESPRIT VENTILATOR VIA TRACH, WITH SETTINGS BELLOW PER RT TRANSPORTER: AC 14 VT 500 FIO2 40% PEEP +5 BREATH SOUNDS CLEAR BILATERAL VENT ALARMS ON AND FUNCTIONING, RUFINO @ BEDSIDE. Addendum: 01/19/17 at 1402 by JOSE HEAD RT Amended: Links added.
[2017-01-19 14:43] LABS: BASOPHILS # (AUTO) 0.2 /CMM (0.0-0.2); BASOPHILS % (AUTO) 1.3 % (0.0-2.0); EOSINOPHILS # (AUTO) 0.2 /CMM (0.0-0.7); HEMATOCRIT 33 % (33-45); HEMOGLOBIN 10.6 g/dL (11.5-14.8); LYMPHOCYTES # (AUTO) 1.5 /CMM (0.8-4.8); LYMPHOCYTES % (AUTO) 12.2 % (20.0-44.0); MEAN CORPUSCULAR HEMOGLOBIN 32 PG (26.0-33.0); MEAN CORPUSCULAR HGB CONC 32 g/dl (31.0-36.0); MEAN CORPUSCULAR VOLUME 99 fL (82-100); MONOCYTES # (AUTO) 0.6 /CMM (0.1-1.30); MONOCYTES % (AUTO) 4.7 % (2.0-12.0); NEUTROPHILS # (AUTO) 9.6 /CMM (1.8-8.9); NEUTROPHILS % (AUTO) 79.8 % (43.0-81.0); PLATELET COUNT (AUTO) 243 /CMM (150-450); RDW COEFFICIENT OF VARIATION 17.9 (11.5-15.0); RED BLOOD CELL COUNT(AUTO) 3.34 MIL/uL (4.0-5.2); WHITE BLOOD COUNT (AUTO) 12.1 K/uL (4.3-11.0)
[2017-01-19 14:52] LABS: CALCIUM, SERUM 8.1 mg/dL (8.5-10.1); CARBON DIOXIDE 24 mmol/L (21-32); CHLORIDE 105 mmol/L (98-107); CREATININE 0.7 mg/dL (0.6-1.3); GLUCOSE 118 mg/dL (74-106); POTASSIUM 3.4 mmol/L (3.5-5.1); SODIUM SERUM 136 mmol/L (136-145); UREA NITROGEN, BLOOD 10 mg/dL (7-18)
[2017-01-19 14:55] LABS: INR 1.11 (0.87-1.13); PROTHROMBIN TIME 11.6 SECS (9.5-12.7)
[2017-01-19 15:08] LABS: ALANINE AMINOTRANSFERASE 12 U/L (12-78); ALBUMIN 2.2 g/dL (3.4-5.0); ALKALINE PHOSPHATASE 310 U/L (46-116); ASPARTATE AMINOTRANSFERASE 22 U/L (15-37); BILIRUBIN,DIRECT 0.1 mg/dL (0.0-0.2); BILIRUBIN,TOTAL 0.4 mg/dL (0.2-1.0)
--- NOTE | 2017-01-19 15:50 | NUR ---
PAGED DR MELÉNDEZ FOR ADMISSION
[2017-01-19 16:02] VITALS: BP 117/61
[2017-01-19 17:00] VITALS: BP 119/58
--- NOTE | 2017-01-19 17:17 | NUR ---
pt transferred from er#2 to 319. pt used same [facility] vent, plugged in red outlet with alarms on and audible. ashok @ bedside. Addendum: 01/19/17 at 1719 by JOSE HEAD RT Amended: Links added.
[2017-01-19 17:30] VITALS: BP 119/58
--- NOTE | 2017-01-19 18:45 | NUR ---
AM RN NOTE Received patient from ER @1710 via [facility] as accompanied by ER staff and RT. Pt awake, A/O able to nod yes and no to questions asked. On trach and vent settings noted, AC 14, Peep 5, Tidal volume 500, O2 40%. Denies any pain at the time of admission. On tele monitor, A-fib 120's. Right upper chest wall with HD cath, covered with dressing. Body assessment done, skin pictures taken and placed in chart. Bed in low locked position. Son (Rolando) at bedside. IV on left wrist #20 intact and patent. Called [facility], spoke with Kate and left msg regarding new admission. Received call from Dr. Harris (On-call) made aware that pt admitted to the unit and for new orders, NNO given by MD at this time. Will endorse care to next shift.
--- NOTE | 2017-01-19 19:28 | NUR ---
TERRAZZO MECHANIC HELPER NOTES RECEIVED PT IN BED, RESTING AT THIS T9IME. ABLE TO OPEN EYES AND COMMUNICATE THROUGH KNODDING. SON RAYMOND AT BED SIDE. NO DISTRESS, NO SOB NOTED. ON TRACH WITH VENT INTACT AND PATENT SUCTIONED PRN. PT A.FIB 120'S ON TELE MONITOR, DR. ADAM AWARE WITH N.O NOTED AND CARRIED OUT. IV SITE ON LEFT WRIST INTACT AND PATENT. NO S/S OF INFILTRATION NOTED. NO S/S ANY PAIN OR DISCOMFORT AT THIS TIME. GT IS INTACT AND PATENT, WITH RESIDUAL OF 10 CC AT THIS TIME. TRUDY CHEST PERMA CATH INTACT. WITH NO S/S OF INFECTION NOTED. ALL NEEDS ATTENDED. KEPT COMFORTABLE. SAFETY PRECAUTIONS. CALL LIGHT WITHIN REACH. WILL CONTINUE TO MONITOR. PER DR. JAIR MERCEDES TO CONT MEDS/ GTF ORDER FROM [facility].
--- NOTE | 2017-01-19 19:30 | NUR ---
AM RN NOTE Called [facility] again for admitting orders. Per Polly, she will page Dr. Harris. Will wait for the call and endorse to next shift.
--- NOTE | 2017-01-19 19:42 | NUR ---
AM RN NOTE Received call from Dr. Harris with new orders obtained and endorsed to next shift.
[2017-01-19 20:00] VITALS: BP 93/50
[2017-01-19] MEDS ORDERED: DIGOXIN INJ 0.5 MG/2 ML AMPUL IV ONE ×2 (20:00→20:30)
[2017-01-19] MEDS ORDERED: POTASSIUM CHLORIDE 20 MEQ POWDER PACKET GT ONE (20:00)
[2017-01-19] MEDS ORDERED: LACTULOSE 10 G/15 ML UDC (PYXIS) PO PRN (20:30)
[2017-01-19] MEDS: METOPROLOL TARTRATE 25 MG TABLET GT SCH (21:00)
[2017-01-19] MEDS ORDERED: ACETAMINOPHEN 650 MG/20.3 ML UDC PO PRN (21:00)
[2017-01-19] MEDS ORDERED: RENAL NOVASOURCE 1,000 ML BOTTLE GT PRN (21:00)
[2017-01-19] MEDS: LEVETIRACETAM SOL (5 ML) 100 MG/ML UDC GT SCH (21:55)
[2017-01-19] MEDS: SEVELAMER CARBONATE 0.8 GM POWD.PACK GT SCH (21:55)
[2017-01-19] MEDS: MIDODRINE HCL (5MG) 5 MG TABLET GT SCH (21:55)
[2017-01-19] MEDS: DOCUSATE SODIUM LIQ 100 MG/10 ML UDC GT SCH (21:59)
[2017-01-20] VITALS (7 sets, daily range): BP systolic 87–104; BP diastolic 38–53
[2017-01-20] MEDS: METOCLOPRAMIDE HCL 10 MG TABLET GT SCH ×4 (01:03→17:48)
--- NOTE | 2017-01-20 01:45 | NUR ---
PT RESTING AT THIS TIME. NO DISTRESS, NO SOB . ON TRACH WITH VENT INTACT AND PATENT. SUCTIONED PRN, 02 SAT IS 99 % AT THIS TIME. NO S/S OF PAIN OR DISCOMFORT. SAFETY PRECAUTIONS OBSERVED. CALL LIGHT WITHIN REACH. WILL CONT TO MONITOR.
[2017-01-20] MEDS: MIDODRINE HCL (5MG) 5 MG TABLET GT SCH ×3 (05:30→22:00)
[2017-01-20] MEDS: SEVELAMER CARBONATE 0.8 GM POWD.PACK GT SCH ×3 (05:30→22:00)
--- NOTE | 2017-01-20 06:26 | NUR ---
CARPET INSTALLER HELPER NOTES PT IN BED, RESTING AT THIS TIME. AROUSES EASILY. A/O X 3. ABLE TO MOUTH WORDS. NO DISTRESS, NO SOB NOTED. ON TRACH WITH VENT INTACT AND PATENT SUCTIONED PRN. IV SITE ON LEFT WRIST INTACT AND PATENT. NO S/S OF INFILTRATION NOTED. NO S/S ANY PAIN OR DISCOMFORT AT THIS TIME. GT IS INTACT AND PATENT, GTF ONGOING INES WELL. ASPIRATION PRECAUTION OBSERVED. TRUDY CHEST PERMA CATH INTACT, WITH DRESSING. GOOD SKIN CARE RENDERED. ALL NEEDS ATTENDED & MET. KEPT COMFORTABLE. SAFETY PRECAUTIONS OBSERVED. CALL LIGHT WITHIN REACH. WILL ENDORSE TO NEXT SHIFT FOR CONNOR.
--- NOTE | 2017-01-20 07:42 | NUR ---
EVENT MANAGEMENT CONSULTANT: INITIAL NOTE RECEIVED PT A/OX3. STARTED DIALYSIS AT 0600 AND IS CONTINUING. PT STABLE. VS STABLE. PT ON VENTILATOR. NO DISTRESS NOTED. NO SOB NOTED. G-TUBE RUNNING AT 50ML/HR. RESTING COMFORTABLY IN BED. CALL LIGHT WITHIN REACH.
[2017-01-20] MEDS: BUMETANIDE (1 MG) 1 MG TABLET GT SCH (08:52)
[2017-01-20] MEDS: VIT B CMPLX 3/FA/VIT C/BIOTIN 1 TAB TABLET GT SCH (08:52)
[2017-01-20] MEDS: CALCITRIOL 0.25 MCG CAPSULE GT SCH (08:52)
[2017-01-20] MEDS: METOPROLOL TARTRATE 25 MG TABLET GT SCH ×2 (08:53→21:00)
[2017-01-20] MEDS: PANTOPRAZOLE 40 MG/PACK PACK GT SCH (08:54)
[2017-01-20] MEDS: DOCUSATE SODIUM LIQ 100 MG/10 ML UDC GT SCH ×2 (08:54→17:00)
[2017-01-20] MEDS: LEVETIRACETAM SOL (5 ML) 100 MG/ML UDC GT SCH ×2 (08:54→22:00)
[2017-01-20] MEDS ORDERED: PROSOURCE / PROSTAT (PYXIS) 30 ML UDC GT SCH (09:00)
--- NOTE | 2017-01-20 09:00 | NUR ---
DIALYSIS DONE, 1 LT OUTPUT, PT STABLE , NO PAIN OR SOB NOTED, WILL MONITOR.
[2017-01-20] MEDS: HYDROGEL DRESSING 90 GM TUBE TP SCH (13:13)
[2017-01-20] MEDS: NYSTATIN CREAM 15 GM TUBE TP SCH ×2 (13:13→17:48)
[2017-01-20] MEDS: NEOMY SULF/BACITRAC ZN/POLY 15 GM TUBE TP SCH (13:13)
[2017-01-20] MEDS: PROSOURCE / PROSTAT (PYXIS) 30 ML UDC GT SCH (17:48)
--- NOTE | 2017-01-20 18:32 | NUR ---
PHOTOENGRAVING ETCHER APPRENTICE: CLOSING NOTE PT ALERT AND ORIENTED X3. NEW ORDER ON CONTINUOUS FEEDING CHANGED TO 40ML/HR UNTIL FOR 16 HOURS/DAY. G-TUBE IN PLACE. PT ON MECHANICAL VENT. NO DISTRESS NOTED. NO SOB NOTED. NO PAIN NOTED. ALL MEDICATIONS ADMINISTERED ON TIME. NO ADVERSE REACTIONS NOTED. REPOSITIONED [id number]. RESTING COMFORTABLY IN BED. CALL LIGHT WITHIN REACH.
--- NOTE | 2017-01-20 19:15 | NUR ---
RELIGIOUS LEADER NOTES RECEIVED PT IN BED, RESTING AT THIS TIME, AROUSES EASILY. COMMUNICATE THROUGH MOUTHING OF WORDS, RAKAN AMBROSE AT BED SIDE. NO DISTRESS, NO SOB NOTED. ON TRACH WITH VENT INTACT AND PATENT SUCTIONED PRN. PT A.FIB 95 ON TELE MONITOR. IV SITE ON LEFT WRIST INTACT AND PATENT. NO S/S OF INFILTRATION NOTED. NO S/S ANY PAIN OR DISCOMFORT AT THIS TIME. GT IS INTACT AND PATENT. GTF TO BE TURN BACK ON AT 8PM. TRUDY CHEST PERMA CATH INTACT, WITH NO S/S OF INFECTION NOTED. ALL NEEDS ATTENDED. KEPT COMFORTABLE. SAFETY PRECAUTIONS OBSERVED. CALL LIGHT WITHIN REACH. WILL CONTINUE TO MONITOR.
[2017-01-20] MEDS: SILDENAFIL CITRATE 20 MG TABLET GT SCH (22:00)
[2017-01-20] MEDS: MUPIROCIN OINT 2% 22 GM TUBE SCH (22:00)
[2017-01-21] VITALS (7 sets, daily range): BP systolic 90–117; BP diastolic 39–53
[2017-01-21] MEDS: METOCLOPRAMIDE HCL 10 MG TABLET GT SCH ×4 (00:08→18:10)
[2017-01-21] MEDS: SILDENAFIL CITRATE 20 MG TABLET GT SCH ×3 (05:39→20:44)
[2017-01-21] MEDS: SEVELAMER CARBONATE 0.8 GM POWD.PACK GT SCH ×3 (05:39→20:44)
[2017-01-21] MEDS: MIDODRINE HCL (5MG) 5 MG TABLET GT SCH ×3 (05:39→20:44)
[2017-01-21] MEDS: RENAL NOVASOURCE 1,000 ML BOTTLE GT PRN (06:27)
--- NOTE | 2017-01-21 06:51 | NUR ---
CIRCUIT DESIGNER NOTES PT IN BED, RESTING AT THIS TIME, AROUSES EASILY. COMMUNICATE THROUGH MOUTHING OF WORDS. NO DISTRESS, NO SOB NOTED. ON TRACH WITH VENT INTACT AND PATENT SUCTIONED PRN. PT A.FIB 85 ON TELE MONITOR. IV SITE ON LEFT WRIST INTACT AND PATENT. NO S/S OF INFILTRATION NOTED. NO S/S ANY PAIN OR DISCOMFORT AT THIS TIME. GT IS INTACT AND PATENT. GTF INES WELL. ON ASPIRATION PRECAUTION. TRUDY CHEST PERMA CATH INTACT, WITH NO S/S OF INFECTION NOTED. ALL NEEDS ATTENDED. KEPT COMFORTABLE. SAFETY PRECAUTIONS OBSERVED. CALL LIGHT WITHIN REACH. WILL ENDORSE TO NEXT SHIFT FOR CONNOR.
--- NOTE | 2017-01-21 07:30 | NUR ---
RN OPEN NOTES RECEIVED REPORT FROM DELICATESSEN STORE MANAGER NURSE. PATIENT IS IN BED, ALERT AND ORIENTED TO NAME ONLY. PATIENT IS NON VERBAL DUE TO VENT DEPENDANT. BED IN LOW POSITION, LOCKED AND TWO SIDE RAILS ARE UP. NO SIGNS AND SYMPTOMS OF DISTRESS OR PAIN. WILL CONTINUE TO ASSESS AND MONITOR PATIENT THROUGH OUT MY SHIFT.
[2017-01-21] MEDS: CALCITRIOL 0.25 MCG CAPSULE GT SCH (08:12)
[2017-01-21] MEDS: DOCUSATE SODIUM LIQ 100 MG/10 ML UDC GT SCH ×2 (08:12→16:07)
[2017-01-21] MEDS: PROSOURCE / PROSTAT (PYXIS) 30 ML UDC GT SCH ×2 (08:12→16:07)
[2017-01-21] MEDS: PANTOPRAZOLE 40 MG/PACK PACK GT SCH (08:12)
[2017-01-21] MEDS: LEVETIRACETAM SOL (5 ML) 100 MG/ML UDC GT SCH ×2 (08:12→20:44)
[2017-01-21] MEDS: BUMETANIDE (1 MG) 1 MG TABLET GT SCH (08:12)
[2017-01-21] MEDS: VIT B CMPLX 3/FA/VIT C/BIOTIN 1 TAB TABLET GT SCH (08:12)
[2017-01-21] MEDS: METOPROLOL TARTRATE 25 MG TABLET GT SCH ×2 (08:13→20:45)
[2017-01-21] MEDS: MUPIROCIN OINT 2% 22 GM TUBE SCH ×2 (08:18→20:50)
[2017-01-21] MEDS: NYSTATIN CREAM 15 GM TUBE TP SCH ×2 (08:18→16:09)
[2017-01-21] MEDS: HYDROGEL DRESSING 90 GM TUBE TP SCH (08:18)
[2017-01-21] MEDS: NEOMY SULF/BACITRAC ZN/POLY 15 GM TUBE TP SCH (08:19)
--- NOTE | 2017-01-21 11:19 | NUR ---
WOUND CARE CONSULT WOUND CARE CONSULT RECEIVED. SURGICAL TEAM ALREADY IN PLACE, ALL ORDERS FOR TREATMENT IN PLACE, WOUND CARE RECOMMENDS TURNING SCHED Q 2 HOURS PATIENT CONDITION PERMITS, HEEL FLOATING AND OFF LOADING, USE OF Z GUARD FOR SKIN/MOISTURE MANAGEMENT. PATIENT WITH CURRENT DENISE AT 12. MD IN AGREEMENT WITH PLAN OF CARE.
--- NOTE | 2017-01-21 13:30 | NUR ---
VERBAL CONSENT WAS OBTAINED VIA TELEPHONE FOR SACRAL WOUND DEBRIDEMENT AND US GUIDED PARACENTESIS. VERBAL CONSENT WAS GIVEN TO TWO RNs BY RAYMOND HARVEY, SON. CONSENT SIGNED AND PLACED IN THE CHART.
--- NOTE | 2017-01-21 13:45 | NUR ---
PARACENTESIS TEAM IS AT BEDSIDE
--- NOTE | 2017-01-21 14:00 | NUR ---
FEEDING STOPPED AT 1400. TO BE RESUME AT 1999.
--- NOTE | 2017-01-21 14:53 | NUR ---
PARACENTESIS COMPLETED. 5,000ML REMOVED. EVS INFORMED TO SOFTWARE REVERSE ENGINEER BOTTLES X5
--- NOTE | 2017-01-21 15:21 | NUR ---
DRESSING CHANGE COMPLETED PER HOSPITAL PROTOCOL AND WOUND NURSE INSTRUCTION
[2017-01-21] MEDS ORDERED: Z GUARD REMEDY 2 OZ OINT TP PRN (18:30)
--- NOTE | 2017-01-21 19:00 | NUR ---
TELE / RN CLOSING NOTES PATIENT IS IN BED. ALERT AND ORIENTED TO NAME ONLY. NON VERBAL DUE TO VENT DEPENDENT. S/P PARACENTESIS. WOUND DEBRIDEMENT IN AM - CONSENT SIGNED. BREATHING EVEN AND UNLABORED. NO SIGNS AND SYMPTOMS OF SHORTNESS OF BREATH OR DISTRESS NOTED. ON TELE MONITOR SHOWING SINUS TACHY 105. IV SITE TKO IS INTACT AND PATENT. TURNED/REPOSITIONED PT Q2H, EXTREMITIES OFFLOADED. PATIENT KEPT CLEAN AND DRY. ALL DRESSING CHANGE COMPLETED PER HOSPITAL PROTOCOL AND WOUND NURSE INSTRUCTION. BED IN LOW AND IN LOCKED POSITION WITH CALL LIGHT IN REACH. TWO SIDE RAILS ARE UP. WILL ENDORSED TO LOGISTICS ADMINISTRATOR NURSE TO CONNOR.
--- NOTE | 2017-01-21 19:10 | NUR ---
RN NOTE RECEIVED REPORT. PT VENT DEPENDENT, EYE OPENING, MOUTH WORDS. NO S/S OF ANY DISTRESS AT THIS TIME. BREATHING NON-LABORED AND EVEN. TELE - AFIB IN 100'S, PT S/P PARACENTESIS. IV INTACT AND PATENT S/L. FAMILY AT BEDSIDE, UPDATED ON PTS POC. CALLL IGHT IN REACH, WILL CONT TO MONITOR.
--- NOTE | 2017-01-21 20:00 | NUR ---
RN NOTE TUBE FEEDING RESUMED
[2017-01-22] VITALS: BP 96/74
[2017-01-22] MEDS: METOCLOPRAMIDE HCL 10 MG TABLET GT SCH ×5 (00:50→23:14)
[2017-01-22 04:00] VITALS: BP 96/50
[2017-01-22] MEDS: MIDODRINE HCL (5MG) 5 MG TABLET GT SCH ×3 (05:54→20:38)
[2017-01-22] MEDS: SEVELAMER CARBONATE 0.8 GM POWD.PACK GT SCH ×3 (05:55→20:38)
[2017-01-22] MEDS: SILDENAFIL CITRATE 20 MG TABLET GT SCH ×3 (05:55→20:39)
--- NOTE | 2017-01-22 06:45 | NUR ---
RN NOTE NO CHANGES OVERNIGHT. PT ON VENT, SETTINGS ACCURATE, NO S/S OF ANY DISTRESS AT THIS TIME. TELE SHOWS CONTROLLED AFIB. CURRENTLY RECEIVING HD. IV INTACT AND PATENT S/L. TOLERATING GTF WELL. KEPT CLEAN AND COMFORTABLY T/O SHIFT. FOR WOUND DEBRIDEMENT. ALL NEEDS ATTENED TO, WILL F/U WITH DAY SHOFT FOR CONNOR.
[2017-01-22 06:50] VITALS: BP 101/42
--- NOTE | 2017-01-22 07:09 | NUR ---
RN OPEN NOTES RECEIVED REPORT FROM CHUCKING AND BORING MACHINE OPERATOR NURSE. WILL CONTINUE TO ASSESS AND MONITOR PATIENT THROUGH OUT MY SHIFT.
--- NOTE | 2017-01-22 07:15 | NUR ---
DIALYSIS NURSE AT BEDSIDE
--- NOTE | 2017-01-22 08:30 | NUR ---
DIALYSIS COMPLETED. 1L REMOVED
[2017-01-22] MEDS: PROSOURCE / PROSTAT (PYXIS) 30 ML UDC GT SCH ×2 (08:42→16:34)
[2017-01-22] MEDS: VIT B CMPLX 3/FA/VIT C/BIOTIN 1 TAB TABLET GT SCH (08:42)
[2017-01-22] MEDS: LEVETIRACETAM SOL (5 ML) 100 MG/ML UDC GT SCH ×2 (08:42→20:38)
[2017-01-22] MEDS: BUMETANIDE (1 MG) 1 MG TABLET GT SCH (08:42)
[2017-01-22] MEDS: DOCUSATE SODIUM LIQ 100 MG/10 ML UDC GT SCH ×2 (08:42→16:34)
[2017-01-22] MEDS: CALCITRIOL 0.25 MCG CAPSULE GT SCH (08:42)
[2017-01-22] MEDS: PANTOPRAZOLE 40 MG/PACK PACK GT SCH (08:42)
[2017-01-22] MEDS: NYSTATIN CREAM 15 GM TUBE TP SCH ×2 (08:43→16:34)
[2017-01-22] MEDS: METOPROLOL TARTRATE 25 MG TABLET GT SCH ×2 (08:43→20:39)
[2017-01-22] MEDS: MUPIROCIN OINT 2% 22 GM TUBE SCH ×2 (08:43→20:39)
[2017-01-22] MEDS: NEOMY SULF/BACITRAC ZN/POLY 15 GM TUBE TP SCH (08:43)
[2017-01-22] MEDS: HYDROGEL DRESSING 90 GM TUBE TP SCH (08:44)
--- NOTE | 2017-01-22 09:00 | NUR ---
BEDSCALE MALFUNCTION. WAS NOT ABLE TO WEIGHT PATIENT
--- NOTE | 2017-01-22 10:30 | NUR ---
POTASSIUM LEVEL IS 3.4 POST DIALYSIS. PER DAREN COLEMAN TO DCs IN AM
[2017-01-22 11:37] LABS: BASOPHILS % (AUTO) 0.4 % (0.0-2.0); EOSINOPHILS # (AUTO) 0.3 /CMM (0.0-0.7); EOSINOPHILS % (AUTO) 4.6 % (0.0-6.0); HEMATOCRIT 31 % (33-45); HEMOGLOBIN 10.1 g/dL (11.5-14.8); LYMPHOCYTES # (AUTO) 1.2 /CMM (0.8-4.8); LYMPHOCYTES % (AUTO) 16.8 % (20.0-44.0); MEAN CORPUSCULAR HEMOGLOBIN 33 PG (26.0-33.0); MEAN CORPUSCULAR HGB CONC 33 g/dl (31.0-36.0); MEAN CORPUSCULAR VOLUME 100 fL (82-100); MONOCYTES # (AUTO) 0.5 /CMM (0.1-1.30); MONOCYTES % (AUTO) 7.9 % (2.0-12.0); NEUTROPHILS # (AUTO) 4.9 /CMM (1.8-8.9); NEUTROPHILS % (AUTO) 70.3 % (43.0-81.0); PLATELET COUNT (AUTO) 190 /CMM (150-450); RDW COEFFICIENT OF VARIATION 17.9 (11.5-15.0); RED BLOOD CELL COUNT(AUTO) 3.12 MIL/uL (4.0-5.2)
[2017-01-22 12:00] VITALS: BP 106/56
[2017-01-22 12:10] LABS: CALCIUM, SERUM 7.6 mg/dL (8.5-10.1); CARBON DIOXIDE 32 mmol/L (21-32); CHLORIDE 101 mmol/L (98-107); GLUCOSE 122 mg/dL (74-106); POTASSIUM 3.4 mmol/L (3.5-5.1); SODIUM SERUM 137 mmol/L (136-145); UREA NITROGEN, BLOOD 26 mg/dL (7-18)
[2017-01-22 16:00] VITALS: BP 96/44
--- NOTE | 2017-01-22 18:37 | NUR ---
TELE / RN CLOSING NOTES PATIENT IS IN BED. ALERT AND ORIENTED TO NAME ONLY. NON VERBAL DUE TO VENT DEPENDENT. SON IS AT BEDSIDE. S/P DIALYSIS, 1L REMOVED. PATIENT REFUSED WOUND DEBRIDEMENT. BREATHING EVEN AND UNLABORED. NO SIGNS AND SYMPTOMS OF SHORTNESS OF BREATH OR DISTRESS NOTED. ON TELE MONITOR SHOWING A. FIB CONTROLLED AT 85 BPM. IV SITE TKO IS INTACT AND PATENT. TURNED/REPOSITIONED PT Q2H, EXTREMITIES OFFLOADED. PATIENT KEPT CLEAN AND DRY. ALL DRESSING CHANGE COMPLETED PER HOSPITAL PROTOCOL AND WOUND NURSE INSTRUCTION. BED IN LOW AND IN LOCKED POSITION WITH CALL LIGHT IN REACH. TWO SIDE RAILS ARE UP. WILL ENDORSED TO INBOUND SALES CONSULTANT NURSE TO CONNOR.
--- NOTE | 2017-01-22 18:50 | NUR ---
PER DR MERCEDES STEPHENS, CHECK LABS IN AM. CONCERNS VERBALIZED IN REGARDING TO POTASSIUM LEVEL. CBC AND BMP COLLECTED POST DIALYSIS, POTASSIUM LEVEL WAS 3.4. DR BERNAL REVIEWED LAB AT 11:10AM WITH NO CONCERNS IN REGARDS TO POTASSIUM .
--- NOTE | 2017-01-22 19:05 | NUR ---
RN NOTE RECEIVED REPORT. PT ON VENT, EYE OPENING, MOUTH WORDS. NO S/S OF ANY DISTRESS AT THIS TIME, BREATHING NON-LABORED AND EVEN. TELE SHOWS AFIB IN70'S. IV INTACT AND PATENT. TOLERATING GTF WELL. FAMILY AT [facility], CALL LIGHT IN REACH, WILL CONT TO MONITOR.
[2017-01-22 20:00] VITALS: BP 97/54
[2017-01-22] MEDS: RENAL NOVASOURCE 1,000 ML BOTTLE GT PRN (23:14)
[2017-01-23] VITALS: BP 91/43
[2017-01-23 04:00] VITALS: BP 94/40
[2017-01-23] MEDS: SEVELAMER CARBONATE 0.8 GM POWD.PACK GT SCH ×2 (05:47→12:43)
[2017-01-23] MEDS: SILDENAFIL CITRATE 20 MG TABLET GT SCH ×2 (05:47→12:43)
[2017-01-23] MEDS: MIDODRINE HCL (5MG) 5 MG TABLET GT SCH ×2 (05:47→12:43)
[2017-01-23] MEDS: METOCLOPRAMIDE HCL 10 MG TABLET GT SCH ×2 (05:47→12:43)
[2017-01-23 06:42] LABS: BASOPHILS % (AUTO) 0.3 % (0.0-2.0); EOSINOPHILS # (AUTO) 0.5 /CMM (0.0-0.7); EOSINOPHILS % (AUTO) 6.5 % (0.0-6.0); HEMATOCRIT 33 % (33-45); HEMOGLOBIN 10.7 g/dL (11.5-14.8); LYMPHOCYTES # (AUTO) 1.7 /CMM (0.8-4.8); LYMPHOCYTES % (AUTO) 22.7 % (20.0-44.0); MEAN CORPUSCULAR HEMOGLOBIN 32 PG (26.0-33.0); MEAN CORPUSCULAR HGB CONC 32 g/dl (31.0-36.0); MEAN CORPUSCULAR VOLUME 99 fL (82-100); MONOCYTES # (AUTO) 0.6 /CMM (0.1-1.30); MONOCYTES % (AUTO) 8.4 % (2.0-12.0); NEUTROPHILS # (AUTO) 4.5 /CMM (1.8-8.9); NEUTROPHILS % (AUTO) 62.1 % (43.0-81.0); PLATELET COUNT (AUTO) 201 /CMM (150-450); RDW COEFFICIENT OF VARIATION 18.6 (11.5-15.0); RED BLOOD CELL COUNT(AUTO) 3.34 MIL/uL (4.0-5.2); WHITE BLOOD COUNT (AUTO) 7.3 K/uL (4.3-11.0)
--- NOTE | 2017-01-23 06:50 | NUR ---
RN NOTE NO SIGNIFICANT CHANGES OVERNIGHT. PT ON VENT, SETTINGS ACCURATE. NO S/S OF ANY DISTRESS OR DISCOMFORT AT THIS TIME. IV INTACT AND PATENT, TOLERATING GTF WELL. WOUND CARE RENDERED. PT KEPT CLEAN AND COMFORTABLE T/O SHIFT. FOR DEBRIDEMENT. WILL F/U WITH DAY SHIFT FOR CONNOR.
[2017-01-23 07:14] LABS: CALCIUM, SERUM 8.1 mg/dL (8.5-10.1); CARBON DIOXIDE 33 mmol/L (21-32); CHLORIDE 99 mmol/L (98-107); CREATININE 1.1 mg/dL (0.6-1.3); GLUCOSE 102 mg/dL (74-106); POTASSIUM 3.6 mmol/L (3.5-5.1); SODIUM SERUM 136 mmol/L (136-145); UREA NITROGEN, BLOOD 39 mg/dL (7-18)
--- NOTE | 2017-01-23 07:32 | NUR ---
RN OPEN NOTES RECEIVED REPORT FROM ANNUAL GIVING MANAGER NURSE. WILL CONTINUE TO MONITOR AND ASSESS PATIENT THROUGH OUT MY SHIFT
[2017-01-23 08:00] VITALS: BP 94/50
[2017-01-23] MEDS: METOPROLOL TARTRATE 25 MG TABLET GT SCH (09:00)
[2017-01-23] MEDS: BUMETANIDE (1 MG) 1 MG TABLET GT SCH (09:39)
[2017-01-23] MEDS: VIT B CMPLX 3/FA/VIT C/BIOTIN 1 TAB TABLET GT SCH (09:39)
[2017-01-23] MEDS: PROSOURCE / PROSTAT (PYXIS) 30 ML UDC GT SCH (09:40)
[2017-01-23] MEDS: CALCITRIOL 0.25 MCG CAPSULE GT SCH (09:40)
[2017-01-23] MEDS: LEVETIRACETAM SOL (5 ML) 100 MG/ML UDC GT SCH (09:40)
[2017-01-23] MEDS: NYSTATIN CREAM 15 GM TUBE TP SCH (09:40)
[2017-01-23] MEDS: DOCUSATE SODIUM LIQ 100 MG/10 ML UDC GT SCH (09:40)
[2017-01-23] MEDS: PANTOPRAZOLE 40 MG/PACK PACK GT SCH (09:40)
[2017-01-23] MEDS: NEOMY SULF/BACITRAC ZN/POLY 15 GM TUBE TP SCH (09:41)
[2017-01-23] MEDS: MUPIROCIN OINT 2% 22 GM TUBE SCH (09:41)
[2017-01-23] MEDS: HYDROGEL DRESSING 90 GM TUBE TP SCH (09:41)
--- NOTE | 2017-01-23 14:03 | NUR ---
GAVE REPORT TO [facility]. SPOKE WITH ADAM. PATIENT IS GOING TO ROOM 345A
[2017-01-23 16:00] VITALS: BP 96/52
--- NOTE | 2017-01-23 16:30 | NUR ---
INTERNET MARKETER NOTES PATIENT DISCHARGE ORDERS RECEIVED AND CARRIED OUT. REPORT CALLED AND GAVE TO ADAM AT [facility]. PATIENT IS GOING TO ROOM 345A. NO SIGNS AND SYMPTOMS OF DISTRESS. DENIED PAIN. SON, SERGIO, AT BEDSIDE.IV SITE REMOVED. ID BAND REMOVED. PATIENT IS LEAVING IN A STABLE CONDITION. VITAL SIGNS ARE STABLE. OXYGEN SATURATION AT 100% , BLOOD PRESSURE 106/44, HEART RATE 88. PATIENT TRANSPORTED TO [facility]ULANCE WITH TWO safety specialist AND ONE RESPIRATORY THERAPIST.
== END 2017-01-23 16:00 | DRG 432 ==
LOC: ER 13:24 → TELE 16:21
PROVIDERS: ADMIT Internal Medicine; ATTEND Internal Medicine
PROC: 5A1945Z Respiratory Ventilation, 24-96 Consecutive Hours (ICD-10-PCS; principal; 2017-01-19)
PROC: 5A1D60Z (ICD-10-PCS; 2017-01-20)
PROC: 0W9G3ZZ Drainage of Peritoneal Cavity, Percutaneous Approach (ICD-10-PCS; 2017-01-21)
DX: K74.69 Other cirrhosis of liver (principal); N18.6 End stage renal disease; Z99.11 Dependence on respirator [ventilator] status; G93.40 Encephalopathy, unspecified; J90 Pleural effusion, not elsewhere classified; J96.11 Chronic respiratory failure with hypoxia; R18.8 Other ascites; R53.2 Functional quadriplegia; I12.0 Hypertensive chronic kidney disease with stage 5 chronic kidney disease or end stage renal disease; E46 Unspecified protein-calorie malnutrition; E87.6 Hypokalemia; Z93.1 Gastrostomy status; Z93.0 Tracheostomy status; M89.9 Disorder of bone, unspecified; Z99.2 Dependence on renal dialysis; Z86.73 Personal history of transient ischemic attack (TIA), and cerebral infarction without residual deficits; R13.10 Dysphagia, unspecified; Z88.5 Allergy status to narcotic agent; Z88.0 Allergy status to penicillin; Z88.2 Allergy status to sulfonamides; Z88.8 Allergy status to other drugs, medicaments and biological substances; Z79.899 Other long term (current) drug therapy; Z66 Do not resuscitate; K21.9 Gastro-esophageal reflux disease without esophagitis; I48.91 Unspecified atrial fibrillation; I27.2 Other secondary pulmonary hypertension; E78.5 Hyperlipidemia, unspecified; E87.70 Fluid overload, unspecified; E66.01 Morbid (severe) obesity due to excess calories; E11.22 Type 2 diabetes mellitus with diabetic chronic kidney disease; D64.9 Anemia, unspecified
CPT/HCPCS: 31720; 36415; 71010-TC; 76942-TC; 80048-TC; 80076-TC; 85025-TC; 85730-TC; 87081-TC; 90935-TC; 94002-TC; 94003-TC; 94762-TC; A4606; A4623; A6248; A6402; A6403; J1160; J1953; J8597; Z7610

== ENCOUNTER 2017-02-07 09:43 | Inpatient (IN) | payer MEDICARE, OTHER ==
[~2017-02-07] VITALS: Ht 152.4 cm; Wt 52.6 kg
[2017-02-07 10:27] LABS: BASOPHILS % (AUTO) 0.1 % (0.0-2.0); EOSINOPHILS # (AUTO) 0.3 /CMM (0.0-0.7); EOSINOPHILS % (AUTO) 2.4 % (0.0-6.0); HEMATOCRIT 35 % (33-45); HEMOGLOBIN 10.8 g/dL (11.5-14.8); LYMPHOCYTES # (AUTO) 0.9 /CMM (0.8-4.8); LYMPHOCYTES % (AUTO) 6.5 % (20.0-44.0); MEAN CORPUSCULAR HEMOGLOBIN 32 PG (26.0-33.0); MEAN CORPUSCULAR HGB CONC 31 g/dl (31.0-36.0); MEAN CORPUSCULAR VOLUME 101 fL (82-100); MONOCYTES # (AUTO) 0.9 /CMM (0.1-1.30); MONOCYTES % (AUTO) 6.4 % (2.0-12.0); NEUTROPHILS # (AUTO) 11.7 /CMM (1.8-8.9); NEUTROPHILS % (AUTO) 84.6 % (43.0-81.0); PLATELET COUNT (AUTO) 159 /CMM (150-450); RDW COEFFICIENT OF VARIATION 18.4 (11.5-15.0); RED BLOOD CELL COUNT(AUTO) 3.42 MIL/uL (4.0-5.2); WHITE BLOOD COUNT (AUTO) 13.8 K/uL (4.3-11.0)
[2017-02-07 10:39] LABS: ALANINE AMINOTRANSFERASE 16 U/L (12-78); ALBUMIN 2.1 g/dL (3.4-5.0); ALKALINE PHOSPHATASE 305 U/L (46-116); ASPARTATE AMINOTRANSFERASE 16 U/L (15-37); BILIRUBIN,DIRECT 0.3 mg/dL (0.0-0.2); BILIRUBIN,TOTAL 0.8 mg/dL (0.2-1.0); CALCIUM, SERUM 8.6 mg/dL (8.5-10.1); CARBON DIOXIDE 23 mmol/L (21-32); CHLORIDE 103 mmol/L (98-107); GLUCOSE 130 mg/dL (74-106); SODIUM SERUM 138 mmol/L (136-145); TOTAL PROTEIN, SERUM 6.7 g/dL (6.4-8.2)
[2017-02-07 10:40] LABS: UREA NITROGEN, BLOOD 89 mg/dL (7-18)
--- NOTE | 2017-02-07 10:40 | NUR ---
PT BIBA FROM [facility] FROM "ELEVATED TEMP". NOTED 98.1 TEMP. SEEN BY FOR EVAL. VENT/TRACH RT AT BS. IV ACCESS STARTED. BLOOD DRAWN, BLOOD CULTURES DRAWN. NOTED GTUBE- DRESSINGS SATURATED WITH BROWNISH DISCHARGE. URINE SAMPLE OBTAINED, SENT. NOTED SKIN ISSUEA WITH DD. SAFETY AND COMFORT MEASURES PROVIDED. WILL MONITOR.
[2017-02-07 10:41] LABS: TROPONIN I 0.018 ng/mL (0.00-0.056)
[2017-02-07 10:57] LABS: INR 1.11 (0.87-1.13); PROTHROMBIN TIME 11.9 SECS (9.5-12.7)
[2017-02-07 11:35] VITALS: BP 92/44
[2017-02-07 11:35] LABS: APPEARANCE,URINE Cloudy (CLEAR); BILIRUBIN,URINE Negative (NEGATIVE); BLOOD, URINE Moderate Ery/uL (NEGATIVE); COLOR,URINE Yellow (YELLOW); KETONES,URINE Trace (NEGATIVE); LEUKOCYTE ESTERASE ,URINE Large (NEGATIVE); NITRITE, URINE Negative (NEGATIVE); PROTEIN,URINE 30 mg/dl (NEGATIVE); UGLUCOSE Negative (NEGATIVE); UROBILINOGEN,URINE 0.2 EU/dL (0.2)
--- NOTE | 2017-02-07 11:40 | NUR ---
PT RECEIVED IN ER TRACHED ON [facility]. VENT SETTINGS ORDERED ZERO DISTRESS NOTED. TRACH MIDLINE. B/S EQUAL AMBU-BAG AT HEAD OF BED WITH SPARE TRACH. ALARMS SET AND AUDIBLE. Addendum: 02/07/17 at 1505 by BARBARA BHANDARI RT Amended: Links added.
[2017-02-07 11:41] LABS: BACTERIA,URINE Moderate /HPF (None Seen); RBC,URINE 0-3 /HPF (0-2); SQUAMOUS EPITHELIAL CELL,UR Few /HPF (None Seen); WBC,URINE TOO NUMEROUS TO COUN /HPF (0-3)
--- NOTE | 2017-02-07 12:09 | NUR ---
WHITNEY 109
--- NOTE | 2017-02-07 12:15 | NUR ---
CALLED SURGEON SYSTEMS DEVELOPMENT MANAGER DR MUNGUIA, ON THE PHONE WITH DR LEON.
--- NOTE | 2017-02-07 12:18 | NUR ---
ON THE PHONE WITH DR MELÉNDEZ
--- NOTE | 2017-02-07 12:42 | NUR ---
REPORT GIVEN TO STONE VIERA FOR WHITNEY ROOM 109.
[2017-02-07 13:20] VITALS: BP 106/46
--- NOTE | 2017-02-07 13:26 | NUR ---
pt transferred from er -2 to 111-2. pt use same [facility] vent, plugged in red outlet with alarms on and functioning. ashok @ bedside. Addendum: 02/07/17 at 1328 by JOSE HEAD RT Amended: Links added.
--- NOTE | 2017-02-07 13:30 | NUR ---
RN NOTES ADMITTED AN 81 Y/O F FROM ER WITH DIAGNOSIS OF SEPSIS TRANSPORTED VIA STRECTCHER ACCOMPANIED BY RN RT AND TECH. PT IS AWAKE, TRACH MIDLINE ON MECH VENT SETTINGS PRESCRIBED. SUCTIONED FOR AIRWAY CLEARANCE. NO ACUTE DISTRESS NOTED. SCUTION SET UP AT BEDSIDE. TELEBOX ATTACHED NOTED AFIB ON THE MONITOR. VS TAKEN AND RECORDED. BODY CHECK DONE NOTED SOME SKIN ISSUES, SACRAL UTD, PERIANAL EXCORIATION. GT SITE NOTED LEAKING. DRESSING APPLIED TO PREVENT FURTHER LEAKING. PICTURES TAKEN AND FILED ON CHART. DAUGHTER AT BEDSIDE. SAFETY MAINTAINED, KEPT COMFORTABLE. CALL LIGHT WITHIN REACH WILL CONT TO MONITOR.
[2017-02-07 13:35] VITALS: BP 106/46
--- NOTE | 2017-02-07 14:00 | NUR ---
RN NOTES CALLED [facility] NEPHROLOGY DR DRY CHAIN WORKER PER PUBLIC SERVICES LIBRARIAN IS DR RIKA MD WAS PAGED TO FOLLOW UP FOR ADMIT ORDERS
[2017-02-07 16:00] VITALS: BP 89/45
--- NOTE | 2017-02-07 18:24 | NUR ---
RN NOTES NOTED GT SITE LEAKING. GTF STOPPED. SPOKE WITH NERA REGARDING PT, REPORT GIVEN TO NERA REGARDING PT CONDITION, PT AFEBRILE AT THIS TIME, VS STABLE. GTF HELD. DRESSING ON GT SITE REINFORCED.
--- NOTE | 2017-02-07 18:55 | NUR ---
RN NOTES PLACED A CALL TO DR MELÉNDEZ, TO REPORT PT GT SITE LEAKING. GT CLAMPED AT THIS TIME. VS STABLE, PT AFEBRILE. ALL NEEDS ATTENDED. KEPT COMFORTABLE. DAUGHTER AT BEDSIDE, CALL LIGHT WITHIN REACH
--- NOTE | 2017-02-07 19:30 | NUR ---
WHITNEY RN INITIAL NOTE RECEIVED REPORT FROM STONE VIERA. PT IN BED, A/A/O X1 TO NAME, MOUTHS WORDS. CHRONIC VENT TRACH, TOLERATING CURRENT VENT SETTINGS. LUNG SOUNDS RHONCHI. BOWEL SOUNDS HYPOACTIVE, GT PATENT. GT SITE IS LEAKING DR YOON AWARE. GT FEEDING HELD AT THIS TIME, IV HYDRATION ORDERED BY CAR. PULSES PRESENT. IV PATENT AND INTACT. PT REPOSITIONED FOR COMFORT. BED IN LOW LOCKED POSITION. DAUGHTER AT BEDSIDE.
--- NOTE | 2017-02-07 19:50 | NUR ---
WHITNEY RN DR YOON AT BEDSIDE. [facility] AT BEDSIDE. DR YOON SPOKE WITH DAUGHTER REGARDING EGD AND PEG DAUGHTER AGREES AND CONSENTS WILL BE SIGNED. WILL CONTINUE TO MONITOR.
--- NOTE | 2017-02-07 19:57 | NUR ---
RN NOTES SPOKE WITH DR YOON, REPORTED PT GT SITE LEAKING, GT CLAMPED AT THIS TIME, PER OK TO START IVF D5NS@75ML/HR. PT WAS SEEN AND EVALUATED AT BEDSIDE.
[2017-02-07 20:00] VITALS: BP 95/38
--- NOTE | 2017-02-07 21:20 | NUR ---
WHITNEY RN DR YOON CALLED REGARDING USE OF THE GT. INSTRUCTED TO CHANGE MEDS VIA OTHER ROUTE AT THIS TIME. INSTRUCTED NOT TO USE GT UNTIL FURTHER NOTICE. WILL CONTINUE TO MONITOR.
[2017-02-08] VITALS: BP 94/46
[2017-02-08 04:00] VITALS: BP 90/45
--- NOTE | 2017-02-08 05:25 | NUR ---
WHITNEY RN NON ADMIN FOR PATIENT SAFETY
--- NOTE | 2017-02-08 07:05 | NUR ---
RN INITIAL NOTES RECEIVED PT AWAKE, [facility] WITH FF SETTINGS: AC14, TV500, QR4820%, PEEP+5. TRACH IN PLACE. NO RESPIRATORY DISTRESS NOTED. NO SOB NOTED. NO SIGNS OF PAIN NOTED. IV LINES IN PLACE. TOLERATING D5W AT 75ML/HR. HD CATH ON RIGHT CHEST WALL INTACT. DRESSING CLEAN AND DRY. PT FOR EGD AND POSSIBLE GT REPLACEMENT DUE TO GT LEAKAGE. ABDOMINAL REDNESS NOTED. WILL MONITOR FOR DRAINAGE. PT CLEAN AND DRY. BLE ELEVATED. WILL CONTINUE TO MONITOR.
--- NOTE | 2017-02-08 07:20 | NUR ---
RN NOTES SEEN AND EXAMINED BY DR. ZULUAGA. AWARE OF CURRENT LAB VALUED AND IMAGING STUDIES. REVIEWED CURRENT MEDS. NO NEW ORDER.
[2017-02-08 07:30] LABS: BASOPHILS # (AUTO) 0.1 /CMM (0.0-0.2); BASOPHILS % (AUTO) 0.5 % (0.0-2.0); EOSINOPHILS # (AUTO) 0.6 /CMM (0.0-0.7); EOSINOPHILS % (AUTO) 6.4 % (0.0-6.0); HEMATOCRIT 32 % (33-45); HEMOGLOBIN 10.5 g/dL (11.5-14.8); LYMPHOCYTES # (AUTO) 0.9 /CMM (0.8-4.8); LYMPHOCYTES % (AUTO) 9.2 % (20.0-44.0); MEAN CORPUSCULAR HEMOGLOBIN 33 PG (26.0-33.0); MEAN CORPUSCULAR HGB CONC 33 g/dl (31.0-36.0); MEAN CORPUSCULAR VOLUME 100 fL (82-100); MONOCYTES # (AUTO) 0.7 /CMM (0.1-1.30); MONOCYTES % (AUTO) 6.7 % (2.0-12.0); NEUTROPHILS # (AUTO) 7.7 /CMM (1.8-8.9); NEUTROPHILS % (AUTO) 77.2 % (43.0-81.0); PLATELET COUNT (AUTO) 148 /CMM (150-450); RDW COEFFICIENT OF VARIATION 18.1 (11.5-15.0); RED BLOOD CELL COUNT(AUTO) 3.24 MIL/uL (4.0-5.2)
[2017-02-08 08:00] VITALS: BP_SYST 90; BP_SYST 95; BP_DIAS 45; BP_DIAS 46
--- NOTE | 2017-02-08 08:00 | NUR ---
AYLIN NOTES ANESTHESIOLOGIST CALLED RIOS (SON) FOR PROCEDURE AND EXPLAINED PT WILL BE FULL CODE FOR 24HRS AFTER PROCEDURE. RIOS VERBALIZED UNDERSTANDING. WILL START BEDSIDE EGD. Addendum: 02/08/17 at 0830 by INDY DURON RN ERROR IN DOCUMENTING SON'S NAME. RAYMOND [place]
[2017-02-08 08:10] LABS: CALCIUM, SERUM 8.3 mg/dL (8.5-10.1); CARBON DIOXIDE 22 mmol/L (21-32); CHLORIDE 106 mmol/L (98-107); CREATININE 1.6 mg/dL (0.6-1.3); GLUCOSE 116 mg/dL (74-106); MAGNESIUM 2.3 mg/dL (1.8-2.4); PHOSPHORUS 3.7 mg/dL (2.5-4.9); POTASSIUM 3.1 mmol/L (3.5-5.1); SODIUM SERUM 137 mmol/L (136-145); UREA NITROGEN, BLOOD 75 mg/dL (7-18)
--- NOTE | 2017-02-08 08:35 | NUR ---
RN NOTES EGD WITH PEG PLACEMENT DONE BY DR. YOON. PT AWAKE, A.OX1-2. NO RESPIRATORY DISTRESS NOTED. NO SOB NOTED. PEG PATENT AND INTACT. ORDERS NOTED AND CARRIED OUT. WILL CLOSELY MONITOR.
--- NOTE | 2017-02-08 09:15 | NUR ---
RN NOTES DIALYSIS STATED. NO RESPIRATORY DISTRESS NOTED. NO SOB NOTED. NO SIGNS OF PAIN NOTED. WILL CONTINUE TO MONITOR. Addendum: 02/08/17 at 1103 by INDY DURON RN 1045 DIALYSIS ENDED. REMOVED 1000ML. PT TOLERATED HD. NO RESPIRATORY DISTRESS NOTED. NO SOB NOTED. NO SIGNS OF PAIN NOTED. WILL MONITOR.
--- NOTE | 2017-02-08 09:26 | NUR ---
WOUND CARE CONSULT: PT NOT SEEN YET FOR SKIN ASSESSMENT DUE TO PT HAVING DIALYSIS AT THIS TIME. RECOMMENDATIONS FOR SKIN PROTECTION MADE AND DISCUSSED WITH NURSING STAFF. FIRST STEP MATTRESS ORDERED. CONSULT MADE TO DR LYLES BY .
--- NOTE | 2017-02-08 09:28 | NUR ---
RN NOTES ALONSO FROM WOUND CARE CAME TO ASSESS PT. UNABLE TO DO SKIN ASSESSMENT, PT HAVING DIALYSIS. DISCUSSED PLAN OF CARE WITH RN. PER ALONSO, DR. GOSS WILL FOLLOW UP
--- NOTE | 2017-02-08 10:00 | NUR ---
RN NOTES PT UNABLE TO REPOSITION, DIALYSIS ONGOING. GTF STARTED AT 20ML/HR. WILL MONITOR FOR TOLERANCE AND WILL INCREASE TO 80ML/HR (GOAL) TOLERATED.
--- NOTE | 2017-02-08 10:20 | NUR ---
RN NOTES SEEN AND EXAMINED BY DR. HAN. TOLERATING VENT WELL. NO RESPIRATORY DISTRESS NOTED. NO SOB NOTED. NO ORDER MADE.
--- NOTE | 2017-02-08 11:00 | NUR ---
RN NOTES CALLED WENDI (PHARMACIST) REGARDING VANCO LEVEL, 13. PT HAS ORDER FOR VANCO POST HD. REVIEWED CURRENT MED ORDER AND LEVEL, CHANGED VANCO DOSE. PT GIVEN VANCO 1GM POST HD. WILL MONITOR FOR ASE.
--- NOTE | 2017-02-08 11:22 | NUR ---
WOUND CARE CONSULT: PT PRESENTS WITH MULTIPLE SKIN ISSUES INCLUDING STAGE 4 ULCER TO SACRUM, STAGE 2 TO RT BUTTOCK AND FRAGILE SCARRING TO LEFT HIP AND LOWER BACK AREAS, ALL PRESENT ON ADMISSION. ABDOMEN NOTED TO BE VERY LARGE WITH REDNESS AROUND G TUBE SITE AND SOME LEAKING OF G TUBE. SKIN TO BE KEPT CLEAN AND DRY. RECOMMEND SURGICAL CONSULT AND FOLLOW UP BY Bo DISCUSSED WITH NURSING STAFF. DR LYLES TO SEE PT PER MD. ALL SKIN PROTECTION AND WOUND RECOMMENDATIONS DISCUSSED WITH NURSING STAFF INCLUDING FIRST STEP MATTRESS. WILL SEE PRDwight VANCE IN AGREEMENT WITH PLAN OF CARE. Addendum: 02/08/17 at 1125 by ALONSO GARZA WNDNU Amended: Links added.
--- NOTE | 2017-02-08 11:30 | NUR ---
RN NOTES CALLED DR. YOON REGARDING PT GT STILL LEAKING. STARTED GTF AT 20ML/HR. RESIDUAL CHECKED, 30ML. PER MD, PUT DRESSING ON. CONTINUE GTF ORDERED. WILL CLOSELY MONITOR.
[2017-02-08 12:00] VITALS: BP 92/48
--- NOTE | 2017-02-08 13:28 | NUR ---
RN NOTES SEEN AND EXAMINED BY DR. CALIX. REVIEWED CURRENT LABS AND MEDICATIONS. ORDERED DC IVF. CLARIFIED KCL ORDER, PT GIVEN KCL 30MEQ/GT AND HD DONE. PER , DC NEW ORDER FOR KCL 50ML X 2 BAGS. NOTED AND CARRIED OUT.
[2017-02-08 16:00] VITALS: BP 109/52
--- NOTE | 2017-02-08 18:47 | NUR ---
RN CLOSING NOTES PT REMAINS STABLE. NO RESPIRATORY DISTRESS NOTED. NO SOB NOTED. NO SIGNS OF PAIN NOTED. AIRWAY PATENT. ON MECH VENT, TRACH INTACT. IV LINES IN PLACE. GT IN PLACE, MINIMAL LEAKING NOTED. ON GTF, RESIDUAL CLOSELY MONITORED. TX PROVIDED ORDERED. KEPT CLEAN AND DRY. REPOSITIONED Q2. KEPT BLE ELEVATED. CALL LIGHT WITHIN REACH. WILL ENDORSE FOR CONTINUITY OF CARE.
--- NOTE | 2017-02-08 19:58 | NUR ---
REFUSE DRIVER. INITIAL ASSESSMENT. RECEIVED THE PT REST ON THE BED. TRACH TO VENT CONNECTED. PT AWAKE, ALERT, FOLLOW COMMANDS. . PORTEX#7, AC 14,TV 500,FIO2 40%, PEEP 5. SAT 99%. NO ACUTE DISTRESS NOTED. LINK KNITTING MACHINE OPERATOR SHOWING AT THIS TIME CONTROLLED AFIB. RATE IS 92. IV RT HAND 20G,LT HAND 20G, RT CHEST WALL HD CATH. DRESSING CLEAN AND DRY. PT GETTING IVF NS TKO@ 5ML/H. IV SITE CLEAN AND DRY. NO REDNESS OR INFILTRATION NOTED. HOB ELEVATED. GT INTACT, DRESSING INTACT. GT FEEDING NOVA SOURCE AT THIS TIME 40ML/H. GOAL IS 80ML/H. RESIDUAL 30ML, WILL CONTINUE TO MONITOR RESIDUAL. PT ON KCI MATTRESS. PT HAS SACRAL WOUND AND RT BUTEX WOUND NOTED. COVER WITH MEPILEX. TEMPERATURE 99. TURN AND REPOSITION Q2H. WILL CONTINUE TO MONITOR VITALS.
[2017-02-08 20:00] VITALS: BP_SYST 110; BP_SYST 99; BP_DIAS 40; BP_DIAS 60
--- NOTE | 2017-02-08 21:34 | NUR ---
RN NOTE. PT HAS FEVER 100. COOLING MEASURE PLACED. FAN ON. WILL CONTINUE TO MONITOR
--- NOTE | 2017-02-08 22:10 | NUR ---
RN NOTE LOPRESSOR NOT GIVEN. PT BLOOD PRESSURE 102/60. WILL CONTINUE TO MONITOR.
[2017-02-09] VITALS: BP_SYST 93; BP_SYST 98; BP_DIAS 43; BP_DIAS 68
[2017-02-09 04:00] VITALS: BP 98/54
--- NOTE | 2017-02-09 07:15 | NUR ---
WHITNEY RN NOTES RECEIVED PATIENT ALERT ORIENTED X1 ,ABLE TO FOLLOWS COMMANDS AND MOUTH WORDS , NOT IN ACUTE DISTRESS , RESPIRATIONS EVEN AND UNLABORED WITH SPO2 OF 100% VIA MECHANICAL VENTILATOR SETTINGS ORDERED , AFIB 110 ON TELE MONITOR , GT PATENT AND INTACT WITH NO BLEEDING NOTED , TOLERATING GT FEEDING OF NOVASOURCE @ 50ML/HR WITH NO 15-20 ML RESIDUALS NOTED , L HAND AND R HAND # 20 PATENT AND INTACT WITH NS @ TKO INFUSING WELL , R CHEST WALL HD CATH C/D/I , ALL NEEDS ATTENDED , BED ON LOW AND LOCKED POSITION , SIDE RAILS X2 ,CALL LIGHT WITHIN REACH , WILL CONTINUE TO MONITOR .
[2017-02-09 07:17] LABS: CALCIUM, SERUM 8.4 mg/dL (8.5-10.1); CARBON DIOXIDE 27 mmol/L (21-32); CHLORIDE 104 mmol/L (98-107); CREATININE 1.3 mg/dL (0.6-1.3); GLUCOSE 133 mg/dL (74-106); POTASSIUM 3.7 mmol/L (3.5-5.1); SODIUM SERUM 137 mmol/L (136-145); UREA NITROGEN, BLOOD 52 mg/dL (7-18)
--- NOTE | 2017-02-09 07:24 | NUR ---
RT PT RECEIVED TRACHED ON THE VENT WITH NOTED SETTINGS. PT IS AWAKE AND ALERT. VENT ALARMS ARE SET AND AUDIBLE WITH BVM BY BEDSIDE. RESTORATION ECOLOGIST CUFF PRESSURE NOTED. VENT IS PLUGGED INTO RED OUTLET. NO RESPIRATORY DISTRESS NOTED AT THIS TIME, WILL CONTINUE TO MONITOR. Addendum: 02/09/17 at 0917 by LAURA MANRIQUEZ RT Amended: Links added.
[2017-02-09 08:00] VITALS: BP 102/46
[2017-02-09 12:00] VITALS: BP 106/55
[2017-02-09 16:00] VITALS: BP 97/53
--- NOTE | 2017-02-09 19:05 | NUR ---
WHITNEY RN OPENING NOTES RECEIVED REPORT FROM AM RN. PATIENT A/A/O X1-2 W/ SOME CONFUSION. UNABLE TO VERBALIZE NEEDS. BREATHING EVEN AND UNLABORED, NO RESPIRATORY DISTRESS NOTED. TRACH INTACT W/ VENT SETTINGS AC 14, TV 500, FI02 40%, PEEP 5. ON TELE W/ CONTROLLED A-FIB. SKIN WARM TO TOUCH. G-TUBE INTACT AND PATENT, FLUSHING WELL W/ GTF NOVASOURCE @ 80 ML/HR. NO LEAKING NOTED @ GT SITE. LEFT WRIST IV #20 & RIGHT HAND IV #20 INTACT W/ DRESSING CDI. RIGHT CHEST WALL HD CATH W/ DRESSING CDI. NO S/S OF PAIN OR DISCOMFORT @ THIS TIME. SAFETY PRECAUTIONS IN PLACE W/ SIDE RAILS UP, BED LOCKED IN LOWEST, CALL LIGHT WITHIN REACH. SON @ BEDSIDE. WILL CONTINUE TO MONITOR.
[2017-02-09 20:00] VITALS: BP 92/45
[2017-02-10] VITALS: BP 98/45
[2017-02-10 04:00] VITALS: BP 94/44
[2017-02-10 07:33] LABS: BASOPHILS % (AUTO) 0.4 % (0.0-2.0); EOSINOPHILS # (AUTO) 0.7 /CMM (0.0-0.7); EOSINOPHILS % (AUTO) 10.2 % (0.0-6.0); HEMATOCRIT 31 % (33-45); HEMOGLOBIN 10.1 g/dL (11.5-14.8); LYMPHOCYTES # (AUTO) 1.1 /CMM (0.8-4.8); LYMPHOCYTES % (AUTO) 16.6 % (20.0-44.0); MEAN CORPUSCULAR HEMOGLOBIN 32 PG (26.0-33.0); MEAN CORPUSCULAR HGB CONC 32 g/dl (31.0-36.0); MEAN CORPUSCULAR VOLUME 100 fL (82-100); MONOCYTES # (AUTO) 0.7 /CMM (0.1-1.30); MONOCYTES % (AUTO) 10.2 % (2.0-12.0); NEUTROPHILS # (AUTO) 4.1 /CMM (1.8-8.9); NEUTROPHILS % (AUTO) 62.6 % (43.0-81.0); PLATELET COUNT (AUTO) 165 /CMM (150-450); RDW COEFFICIENT OF VARIATION 18.1 (11.5-15.0); RED BLOOD CELL COUNT(AUTO) 3.13 MIL/uL (4.0-5.2); WHITE BLOOD COUNT (AUTO) 6.5 K/uL (4.3-11.0)
[2017-02-10 07:55] LABS: MAGNESIUM 2.3 mg/dL (1.8-2.4); PHOSPHORUS 2.5 mg/dL (2.5-4.9)
[2017-02-10 08:00] VITALS: BP 96/44
--- NOTE | 2017-02-10 08:28 | NUR ---
RESIDUAL OF 260 ML THIS MORNING AT 0810. HELD THE TF AND WILL CONTINUE TO ASSESS FOR RESIDUAL AMOUNT. WILL DISCUSS WITH NUTRITION IF NOVASOURCE AT 80ML IS ADEQUATE OR OVERLY ADEQUATE FOR NUTRITIONAL NEEDS.
--- NOTE | 2017-02-10 09:46 | NUR ---
RESIDUAL NOW AT 180. CONTINUING TO HOLD. CALLED NUTRITION CONSULT AND THEY STATE THAT THE ORIGINAL CONSULT RECOMMENDED A GOAL RATE OF 35ML/HR AND THAT 80ML/H IS A HIGH RATE FOR KAYDENASJESSICA.
[2017-02-10 12:00] VITALS: BP 93/42
--- NOTE | 2017-02-10 12:05 | NUR ---
RESIDUAL AT 50 ML AT THIS TIME WILL RESTART TF AT 20ML/HR WITH A GOAL RATE OF 35ML/H PER RECOMMENDATION BY NUTRITION.
--- NOTE | 2017-02-10 13:00 | NUR ---
HD NURSE IN FOR [place]
--- NOTE | 2017-02-10 14:33 | NUR ---
TELEPHONE CONSENT FOR US GUIDED PARACENTESIS AND SACRAL DEBRIDEMENT OBTAINED. RAYMOND HARVEY (SON) GAVE CONSENT, VERIFIED WITH ANOTHER NURSE. CALLED ULTRASOUND TO NOTIFY THEM CONSENT IS DONE.
--- NOTE | 2017-02-10 14:33 | NUR ---
HD COMPLETE 1 LITER OUT
[2017-02-10 16:00] VITALS: BP 92/51
--- NOTE | 2017-02-10 16:40 | NUR ---
US GUIDED PARACENTESIS COMPLETE 3700 ML REMOVED
[2017-02-10 20:00] VITALS: BP 75/33
[2017-02-11] VITALS: BP 82/41
[2017-02-11 04:00] VITALS: BP 87/26
--- NOTE | 2017-02-11 05:46 | NUR ---
MED NOTE: DOWN TIME PROCEDURE MEDS GIVEN. SEE PAPER MAR.
--- NOTE | 2017-02-11 07:22 | NUR ---
tele-td/cartographic designer report to shilpa lucio for cont of care.
[2017-02-11 08:00] VITALS: BP_SYST 94; BP_SYST 97; BP_DIAS 36
--- NOTE | 2017-02-11 10:00 | NUR ---
RN WHITNEY RECEIVED PATIENT AWAKE ON MECHANICAL VENTILATORY SUPPORT AFEBRILE ALERT ORIENTED X 2 MOUNTING WORDS ON GT FEEDING TOLERATING POORLY NO OTHER PROBLEM MONITORED CLOSELY
[2017-02-11 12:00] VITALS: BP_SYST 116; BP_SYST 97; BP_DIAS 44; BP_DIAS 58
[2017-02-11 16:00] VITALS: BP 98/40
--- NOTE | 2017-02-11 18:29 | NUR ---
RN WHITNEY PATIENT WAS HANDED OVER TO EMT RN ALERT X 2 BLOOD PRESSURE AT LOW SIDE NO OTHER COPLAINTS MADE CONNECTED TO MECHANICAL VENTILATOR REPORT GIVEN EARLIER TO MELANI VIERA AT [facility] AC[facility] DISCHARGED PAPERWORK GIVEN TO EMT ORGANISATION AND METHODS ANALYST
== END 2017-02-11 18:41 | DRG 853 ==
LOC: ER 09:46 → TELE-TD 12:34
PROVIDERS: ADMIT Internal Medicine Nephrology; ATTEND Internal Medicine Nephrology
PROC: 5A1945Z Respiratory Ventilation, 24-96 Consecutive Hours (ICD-10-PCS; principal; 2017-02-07)
PROC: 5A1D60Z (ICD-10-PCS; 2017-02-08)
PROC: 0D20XUZ Change Feeding Device in Upper Intestinal Tract, External Approach (ICD-10-PCS; 2017-02-08)
PROC: 0W9G3ZZ Drainage of Peritoneal Cavity, Percutaneous Approach (ICD-10-PCS; 2017-02-10)
PROC: 0KBP0ZZ Excision of Left Hip Muscle, Open Approach (ICD-10-PCS; 2017-02-11)
PROC: 0KBN0ZZ Excision of Right Hip Muscle, Open Approach (ICD-10-PCS; 2017-02-11)
DX: A41.9 Sepsis, unspecified organism (principal); L89.154 Pressure ulcer of sacral region, stage 4; J90 Pleural effusion, not elsewhere classified; J94.8 Other specified pleural conditions; Z99.11 Dependence on respirator [ventilator] status; J96.11 Chronic respiratory failure with hypoxia; I95.9 Hypotension, unspecified; N18.6 End stage renal disease; I12.0 Hypertensive chronic kidney disease with stage 5 chronic kidney disease or end stage renal disease; R18.8 Other ascites; N39.0 Urinary tract infection, site not specified; K94.23 Gastrostomy malfunction; L89.222 Pressure ulcer of left hip, stage 2; Z93.0 Tracheostomy status; L89.312 Pressure ulcer of right buttock, stage 2; Z99.2 Dependence on renal dialysis; Z88.2 Allergy status to sulfonamides; D64.9 Anemia, unspecified; E11.22 Type 2 diabetes mellitus with diabetic chronic kidney disease; K74.60 Unspecified cirrhosis of liver; Z86.73 Personal history of transient ischemic attack (TIA), and cerebral infarction without residual deficits; Z88.0 Allergy status to penicillin; I48.91 Unspecified atrial fibrillation; I27.2 Other secondary pulmonary hypertension; Y82.9 Unspecified medical devices associated with adverse incidents; Y83.3 Surgical operation with formation of external stoma as the cause of abnormal reaction of the patient, or of later complication, without mention of misadventure at the time of the procedure; Y92.129 Unspecified place in nursing home as the place of occurrence of the external cause; L60.3 Nail dystrophy; Z66 Do not resuscitate; B96.20 Unspecified Escherichia coli [E. coli] as the cause of diseases classified elsewhere; G40.909 Epilepsy, unspecified, not intractable, without status epilepticus; K21.9 Gastro-esophageal reflux disease without esophagitis; L98.8 Other specified disorders of the skin and subcutaneous tissue; E78.5 Hyperlipidemia, unspecified; E87.6 Hypokalemia; R13.10 Dysphagia, unspecified; Z79.899 Other long term (current) drug therapy
CPT/HCPCS: 31720; 36415; 43246; 71010-TC; 76942-TC; 80048-TC; 80076-TC; 80170-TC; 80202-TC; 81000-TC; 82962-TC; 83605-TC; 83735-TC; 84100-TC; 84484-TC; 85025-TC; 85730-TC; 87040-TC; 87081-TC; 87086-TC; 87186-TC; 90935-TC; 94002-TC; 94003-TC; 99082-TC; A4216; A4606; A6248; A6253; A6402; A6403; J1580; J1953; J1956; J2185; J2704; J2765; J3370; J3490; J7030; J7050; J7060; J7070; J8597; Z7610

== ENCOUNTER 2017-02-16 20:57 | Inpatient (IN) | payer MEDICARE, OTHER ==
[~2017-02-16] VITALS: Ht 152.4 cm; Wt 49.0 kg
--- NOTE | 2017-02-16 21:10 | NUR ---
[facility]PA FROM [facility] DT ABDOMINAL DISTENTION AND PAIN SINCE THIS AM. PATIENT IS AWAKE, NOTED TO BE VENT/ TRACHE DEPENDENT,SATING WELL. PATIENT HAS HD CATH ON [facility]--LAST HD THIS AM. ABDOMEN WITH GT HOWEVER APPEARS TO BE DISTENDED. LAST BM YESTERDAY. PT DENIES PAIN AT THIS. VSS. GOWNED AND PLACED ON TELE MONITOR
[2017-02-16 21:25] VITALS: BP_SYST 98
--- NOTE | 2017-02-16 21:33 | NUR ---
TERRESTRIAL ECOLOGIST AT BS
[2017-02-16 21:43] LABS: BASOPHILS # (AUTO) 0.2 /CMM (0.0-0.2); BASOPHILS % (AUTO) 2.8 % (0.0-2.0); EOSINOPHILS # (AUTO) 0.2 /CMM (0.0-0.7); HEMATOCRIT 31 % (33-45); HEMOGLOBIN 10.1 g/dL (11.5-14.8); LYMPHOCYTES # (AUTO) 1.1 /CMM (0.8-4.8); LYMPHOCYTES % (AUTO) 14.1 % (20.0-44.0); MEAN CORPUSCULAR HEMOGLOBIN 32 PG (26.0-33.0); MEAN CORPUSCULAR HGB CONC 33 g/dl (31.0-36.0); MEAN CORPUSCULAR VOLUME 99 fL (82-100); MONOCYTES # (AUTO) 0.5 /CMM (0.1-1.30); MONOCYTES % (AUTO) 5.9 % (2.0-12.0); NEUTROPHILS # (AUTO) 5.9 /CMM (1.8-8.9); NEUTROPHILS % (AUTO) 74.2 % (43.0-81.0); PLATELET COUNT (AUTO) 236 /CMM (150-450); RDW COEFFICIENT OF VARIATION 15.6 (11.5-15.0); RED BLOOD CELL COUNT(AUTO) 3.12 MIL/uL (4.0-5.2); WHITE BLOOD COUNT (AUTO) 7.9 K/uL (4.3-11.0)
[2017-02-16 21:58] LABS: CALCIUM, SERUM 8.1 mg/dL (8.5-10.1); CARBON DIOXIDE 23 mmol/L (21-32); CHLORIDE 106 mmol/L (98-107); GLUCOSE 90 mg/dL (74-106); POTASSIUM 3.9 mmol/L (3.5-5.1); SODIUM SERUM 137 mmol/L (136-145); UREA NITROGEN, BLOOD 18 mg/dL (7-18)
--- NOTE | 2017-02-16 22:01 | NUR ---
VENT PT CAME INTO ER. EMT INSTRUCTED ME THAT VENT SETTINGS WERE AC 14, VT 500, 40%, PEEP 5. PT'S TRACH IS PORTEX 8. BILATERAL DIM BREATH SOUNDS. PT IS AWAKE/ALERT. PT TRANSPORTED TO CT SCAN AND BACK. WILL CONT TO MONITOR PATIENT.
[2017-02-16 22:11] LABS: ALANINE AMINOTRANSFERASE 19 U/L (12-78); ALKALINE PHOSPHATASE 311 U/L (46-116); ASPARTATE AMINOTRANSFERASE 24 U/L (15-37); BILIRUBIN,DIRECT 0.1 mg/dL (0.0-0.2); BILIRUBIN,TOTAL 0.4 mg/dL (0.2-1.0); LIPASE 115 U/L (73-393); TOTAL PROTEIN, SERUM 6.2 g/dL (6.4-8.2)
[2017-02-16 22:19] LABS: TROPONIN I < 0.017 ng/mL (0.00-0.056)
[2017-02-16 22:25] LABS: INR 1.07 (0.87-1.13); PROTHROMBIN TIME 11.5 SECS (9.5-12.7)
[2017-02-16 23:05] LABS: APPEARANCE,URINE SL CLOUDY (CLEAR); BILIRUBIN,URINE NEGATIVE (NEGATIVE); BLOOD, URINE NEGATIVE Ery/uL (NEGATIVE); COLOR,URINE YELLOW (YELLOW); KETONES,URINE NEGATIVE (NEGATIVE); LEUKOCYTE ESTERASE ,URINE TRACE (NEGATIVE); NITRITE, URINE NEGATIVE (NEGATIVE); PROTEIN,URINE 1+ mg/dl (NEGATIVE); UGLUCOSE NEGATIVE (NEGATIVE); UROBILINOGEN,URINE 0.2 EU/dL (0.2)
--- NOTE | 2017-02-16 23:07 | NUR ---
CALLED PANEL - PAGED DR. BURROUGHS
[2017-02-16 23:15] LABS: BACTERIA,URINE Rare /HPF (None Seen); RBC,URINE 0-2 /HPF (0-2); SQUAMOUS EPITHELIAL CELL,UR Few /HPF (None Seen)
[2017-02-16 23:16] VITALS: BP_SYST 98
--- NOTE | 2017-02-16 23:23 | NUR ---
Patient is resting comfortably in bed with eyes closed. Easily aroused. VSS. SON AT BS
--- NOTE | 2017-02-16 23:32 | NUR ---
pt will go to bed 329
--- NOTE | 2017-02-16 23:47 | NUR ---
CALLED FOR DR. CALIX FOR ADMISSION
[2017-02-17] VITALS (9 sets, daily range): BP systolic 91–117; BP diastolic 44–67
--- NOTE | 2017-02-17 00:15 | NUR ---
report given to christelle VIERA for CONNOR
--- NOTE | 2017-02-17 01:24 | NUR ---
TELE/RN CALLED OFFICE OF FOR ADMISSION ORDERS. LEFT MESSAGE.
--- NOTE | 2017-02-17 01:25 | NUR ---
TELE/RN RECE[place] [facility] [place] ACCOMPAN[place] BY SON. [facility], AWAKE, ALERT, ORIENTED X 1, COMFORTABLE, NO C/O PAIN AT THIS TIME NO SIGNS OF DISTRESS NOTED. ADMISSION DONE PER PROTOCOL, INFORMATIONS PROVIDED BY THE SON AT BEDSIDE. PLAN OF CARE DISCUSSED, VERBALIZED UNDERSTANDING AND IN AGREEMENT. WILL CALL MD FOR ADMISSION ORDERS.
--- NOTE | 2017-02-17 01:27 | NUR ---
TELE/RN DR. CALIX CALL BACK WITH ADMISSION ORDERS RECEIVED. CARRIED OUT.
[2017-02-17] MEDS ORDERED: METOPROLOL TARTRATE 25 MG TABLET ONE ×4 (01:59)
[2017-02-17] MEDS: RENAL NOVASOURCE 1,000 ML BOTTLE GT PRN (02:01)
--- NOTE | 2017-02-17 02:01 | NUR ---
TELE/RN GT FEEDING WAS STARTED ORDERED. POSITIVE GT PLACEMENT NOTED.
[2017-02-17] MEDS: METOPROLOL TARTRATE 25 MG TABLET GT SCH ×3 (02:02→21:26)
[2017-02-17] MEDS ORDERED: IPRATROPIUM NEB FS 0.5 MG/2.5 ML AMPUL.NEB NEB PRN (03:00)
[2017-02-17] MEDS ORDERED: ALBUTEROL FS 2.5 MG/0.5 ML VIAL.NEB NEB PRN (03:00)
[2017-02-17] MEDS ORDERED: ALBUTEROL FS 2.5 MG/0.5 ML VIAL.NEB ONE ×8 (03:14→03:18)
[2017-02-17] MEDS ORDERED: IPRATROPIUM NEB FS 0.5 MG/2.5 ML AMPUL.NEB ONE ×4 (03:15)
[2017-02-17] MEDS: ALBUTEROL FS 2.5 MG/0.5 ML VIAL.NEB NEB SCH ×4 (03:21→20:04)
--- NOTE | 2017-02-17 04:23 | NUR ---
TELE/RN PATIENT IS SLEEPING AROUSABLE, APPEAR COMFORTABLE, NO SIGNS OF DISTRESS NOTED, CALL LIGHT IN REACH. WILL CONTINUE TO MONITOR.
[2017-02-17] MEDS ORDERED: IPRATROPIUM NEB FS 0.5 MG/2.5 ML AMPUL.NEB NEB SCH (06:00)
--- NOTE | 2017-02-17 06:53 | NUR ---
TELE/RN PATIENT APPEARS SLEEPING, AROUSABLE, APPEAR COMFORTABLE, NO SIGNS OF DISTRESS NOTED, MECH LINDA WORKING WELL, GT FEEDING INFUSING. ALL NEEDS ATTENDED AT THIS TIME. WILL CONTINUE TO MONITOR.
--- NOTE | 2017-02-17 07:30 | NUR ---
CMA AM NOTES PT IN BED, AO X 1, MOUTHS WORDS, PORTEX [address], VENT DEPENDENT, SETTINGS ORDERED, ASLEEP, RESPONDS TO NAME AND TOUCH, TELEMETRY READS, AFIB HR 87, NO SIGNS OF PAIN AT THIS TIME, NO SIGNS OF DISTRESS NOTED. HD CATH R SUBCLAVIAN CDI DRESSING, RFA G20 AND LFA G20 IN PLACE, FLUSHES WELL, BOTH SITE CLEAR. ONGOING NOVASOURCE GTF AT 50 ML/HR X 18 HRS, ON 0200 OFF 1999, O RESIDUAL, SEE NURSING FLOWSHEET FOR SKIN ISSUES. FOR WOUND CONSULT, WILL TURN AND RESPOSITION Q 2 HOURS. CALL LIGHT WITHIN REACH, WILL CONT TO MONITOR.
[2017-02-17] MEDS: IPRATROPIUM NEB FS 0.5 MG/2.5 ML AMPUL.NEB NEB SCH ×3 (08:01→20:03)
[2017-02-17] MEDS ORDERED: ACID1TAB12 GT (08:11)
[2017-02-17] MEDS ORDERED: IPRA3AMP IH ×2 (08:11)
--- NOTE | 2017-02-17 09:30 | NUR ---
ALL SOURCE COLLECTION MANAGER NOTES LOPRESSOR NOT ADMINISTERED. LOW BP.
[2017-02-17] MEDS ORDERED: NEPRO VAN 237 ML CAN GT SCH (10:00)
--- NOTE | 2017-02-17 11:10 | NUR ---
PERSONNEL SECURITY ASSISTANT NOTES PER DR. Ricardo MELÉNDEZ TO FOLLOW HIS ORDERS RE MED RECON AND ALSO NO NEED TO SEND FLUIDS COLLECTED FROM PARACENTESIS TO LABORATORY.
[2017-02-17] MEDS ORDERED: METOCLOPRAMIDE HCL 5 MG/5 ML UDC GT SCH (12:00)
[2017-02-17] MEDS: SEVELAMER CARBONATE 0.8 GM POWD.PACK GT SCH ×2 (12:19→21:25)
[2017-02-17] MEDS: MIDODRINE HCL (5MG) 5 MG TABLET PO SCH ×2 (12:20→21:25)
--- NOTE | 2017-02-17 14:16 | NUR ---
MARKETING COMMUNICATIONS ASSISTANT NOTES' ULTRASONOLOGIST AT BEDSIDE FOR PARACENTESIS. CONSENT SIGNED. RAKAN AMBROSE AT BEDSIDE.
[2017-02-17] MEDS: HYDROGEL DRESSING 90 GM TUBE TP SCH (16:19)
--- NOTE | 2017-02-17 17:29 | NUR ---
MS VIERA NOTES STARTED BRADLY LARA. Addendum: 02/17/17 at 1853 by SARINA SEGAL RN DISREGARD THIS DOCUMENTATION INTENDED FOR ANOTHER PATIENT.
[2017-02-17] MEDS: METOCLOPRAMIDE HCL 10 MG/10 ML UDC GT SCH (17:43)
--- NOTE | 2017-02-17 18:53 | NUR ---
MECHANICAL SYSTEM TECHNICIAN CLOSING NOTES PT RESTING IN BED, AO X 1, MOUTHS WORDS, PORTEX [address], VENT DEPENDENT, SETTINGS ORDERED, TELEMETRY READS, AFIB HR 88, NO SIGNS OF PAIN AT THIS TIME, NO SIGNS OF DISTRESS NOTED. ONGOING HEMODIALYSIS, HD CATH R SUBCLAVIAN CDI DRESSING, RT HAND G22 AND LFA G20 IN PLACE, FLUSHES WELL, BOTH SITE CLEAR. ONGOING NOVASOURCE GTF AT 50 ML/HR X 18 HRS, ON 0200 OFF 1999, O RESIDUAL, FOR WOUND CONSULT, WILL TURNED AND RESPOSITIONED Q 2 HOURS. PM CARE DONE, PERFORMED PRESCRIBED WOUND TREATMENT EARLIER, SAFETY MEASURE IN PLACE. ALL NEEDS MET. NO OTHER SIGNIFICANT CHANGE IN CONDITION.CALL LIGHT WITHIN REACH, SON AT BEDSIDE. WILL ENDORSE TO NEXT SHIFT FOR CONNOR.
[2017-02-17] MEDS: LEVETIRACETAM SOL (5 ML) 100 MG/ML UDC GT SCH (21:24)
[2017-02-17] MEDS: ACIDOPHILUS/BULGARICUS 1 EACH TAB.CHEW GT SCH (21:25)
[2017-02-18] VITALS (9 sets, daily range): BP systolic 95–111; BP diastolic 36–67
[2017-02-18] MEDS: METOCLOPRAMIDE HCL 10 MG/10 ML UDC GT SCH ×4 (00:35→17:20)
[2017-02-18] MEDS: ALBUTEROL FS 2.5 MG/0.5 ML VIAL.NEB NEB SCH ×4 (01:38→19:55)
[2017-02-18] MEDS: IPRATROPIUM NEB FS 0.5 MG/2.5 ML AMPUL.NEB NEB SCH ×4 (01:38→19:55)
[2017-02-18] MEDS: MIDODRINE HCL (5MG) 5 MG TABLET PO SCH ×3 (05:38→21:34)
[2017-02-18] MEDS: SEVELAMER CARBONATE 0.8 GM POWD.PACK GT SCH ×3 (05:39→21:31)
--- NOTE | 2017-02-18 06:40 | NUR ---
BLINDSTITCH MACHINE OPERATOR NOTES AWAKE & ALERT WITH SAME VENT SETTINGS. NOT IN ANY DISTRESS. NO SOB NOTED. NO S/SX OF PAIN OR DISCOMFORT AT THIS TIME. WITH GTF INFUSING WELL. WITH IV-HL PATENT & INTACT. AM CARE DONE. MONITORED ACCORDINGLY. CALL LIGHT WITHIN REACH. BED IN LOWEST POSITION. SR UP X 3 WITH BED ALARM ON FOR SAFETY. WILL ENDORSE TO NEXT SHIFT.
--- NOTE | 2017-02-18 07:30 | NUR ---
REPAIRER CONTROLLER TESTER AM NOTES PT IN BED, AO X 1, MOUTHS WORDS, PORTEX [address], VENT DEPENDENT, SETTINGS ORDERED, ASLEEP, RESPONDS TO NAME AND TOUCH, TELEMETRY READS, AFIB HR 87, NO SIGNS OF PAIN AT THIS TIME, NO SIGNS OF DISTRESS NOTED. HD CATH R SUBCLAVIAN CDI DRESSING, RT HAND G22 AND LFA G20 IN PLACE, FLUSHES WELL, BOTH SITE CLEAR. ONGOING NOVASOURCE GTF AT 50 ML/HR X 18 HRS, ON 0200 OFF 1999, O RESIDUAL, SEE NURSING FLOWSHEET FOR SKIN ISSUES. FOR WOUND CONSULT, WILL TURN AND RESPOSITION Q 2 HOURS. CALL LIGHT WITHIN REACH, WILL CONT TO MONITOR.
[2017-02-18] MEDS ORDERED: CALCITRIOL 0.25 MCG CAPSULE GT SCH (09:00)
[2017-02-18] MEDS: METOPROLOL TARTRATE 25 MG TABLET GT SCH ×2 (09:00→21:00)
[2017-02-18] MEDS: RENAL NOVASOURCE 1,000 ML BOTTLE GT PRN (09:15)
[2017-02-18] MEDS: LEVETIRACETAM SOL (5 ML) 100 MG/ML UDC GT SCH ×2 (09:15→21:31)
[2017-02-18] MEDS: BUMETANIDE (1 MG) 1 MG TABLET GT SCH (09:16)
[2017-02-18] MEDS: ACIDOPHILUS/BULGARICUS 1 EACH TAB.CHEW GT SCH ×2 (09:16→21:35)
[2017-02-18] MEDS: HYDROGEL DRESSING 90 GM TUBE TP SCH (09:17)
--- NOTE | 2017-02-18 09:30 | NUR ---
LIGHT BULB ASSEMBLER NOTES LOPRESSOR NOT ADMINISTERED. LOW BP.
--- NOTE | 2017-02-18 10:39 | NUR ---
WOUND CARE CONSULT: PT PRESENTS WITH SACRAL STAGE 4 ULCER, PRESENT ON ADMISSION. 1CM UNDERMINING NOTED AT 12:00 POSITION OF SACRAL WOUND. PT ABLE TO ASSIST WITH TURNING AND REPOSITIONING AND SHE MOVES HER LEGS. RECOMMENDATIONS MADE FOR WOUND CARE AND SKIN PROTECTION. DISCUSSED WITH NURSING STAFF. WILL SEE PRN. VANCE IN AGREEMENT WITH PLAN OF CARE. Addendum: 02/18/17 at 1041 by ALONSO GARZA WNDNU Amended: Links added.
[2017-02-18] MEDS: Z GUARD REMEDY 2 OZ OINT TP SCH (11:31)
--- NOTE | 2017-02-18 12:26 | NUR ---
MS VIERA NOTES MAGNESIUM IV BAG #1. Addendum: 02/18/17 at 1351 by SARINA SEGAL RN CORRECTION: DISREGARD THIS DOCUMENTATION INTENDED FOR ANOTHER PATIENT.
--- NOTE | 2017-02-18 12:50 | NUR ---
SKI LIFT MECHANIC NOTES HD COMPLETED WITH 1 LITER OUTPUT.
--- NOTE | 2017-02-18 15:32 | NUR ---
ASSISTANT GOLF COURSE SUPERINTENDENT NOTES PATIENT FOR US THORACENTESIS TODAY PER DR. Ricardo MELÉNDEZ. NO NEED FOR FLUID ANALYSIS PER MD.
--- NOTE | 2017-02-18 16:50 | NUR ---
LEAD GAME DESIGNER NOTES S/P THORACENTESIS BY DR. VASQUEZ AT BEDSIDE. 500 ML OUT.
--- NOTE | 2017-02-18 17:47 | NUR ---
DRIVE IN WAITER/WAITRESS NOTES CXR RESULT RELAYED TO DR. Ricardo MELÉNDEZ. 3 CALL ATTEMPTS TP ULTRASOUND. NO ANSWER. OVERHEAD PAGED. NO RETURN CALL.
--- NOTE | 2017-02-18 17:58 | NUR ---
KILN FURNITURE CASTER NOTE PER DR. Ricardo MELÉNDEZ, RECHECK PT IN AM. REPEAT CXR.
--- NOTE | 2017-02-18 18:25 | NUR ---
PACKAGER CLOSING NOTES PT RESTING IN BED, AO X 1, PORTEX [address], VENT DEPENDENT, SETTINGS ORDERED, TELEMETRY READS, AFIB HR 89, NO SIGNS OF PAIN AT THIS TIME, NO SIGNS OF DISTRESS NOTED. HD CATH R SUBCLAVIAN CDI DRESSING, RT HAND G22 AND LFA G20 IN PLACE, FLUSHES WELL, BOTH SITE CLEAR. ONGOING NOVASOURCE GTF AT 50 ML/HR X 18 HRS, ON 0200 OFF 1999, O RESIDUAL, TURNED AND RESPOSITIONED Q 2 HOURS. PM CARE DONE, PERFORMED PRESCRIBED WOUND TREATMENT EARLIER, SAFETY MEASURE IN PLACE. ALL NEEDS MET. NO OTHER SIGNIFICANT CHANGE IN CONDITION.CALL LIGHT WITHIN REACH, SON AT BEDSIDE. WILL ENDORSE TO NEXT SHIFT FOR CONNOR. S/P THORACENTESIS EARLIER BY DR. VASQUEZ, 500 ML OUTPUT, VSS. RESULT OF CXR POST THORACENTESIS - RESOLUTION OF RIGHT PLEURAL EFFUSION WITH NEW RIGHT BASILAR PNEUMOTHORAX. RELAYED TO DR. Ricardo MELÉNDEZ, WILL RECHECK WITH REPEAT CXR IN AM.
--- NOTE | 2017-02-18 19:43 | NUR ---
MS/RN OPENING NOTES RECEIVED ENDORSEMENT FROM AM RN REGARDING PATIENT CONCERN, AWAITING FOR MD RETURN CALL FOR RESULT OF CHEST XRAY W/ RIGHT BASILAR PNEUMOTHORAX. ON TELE MONITORING AT AFIB IN 90'S. REQUIRE SUCTIONING TO CLEAR SECRETIONS. SKIN WARM TO TOUCH. O2 SAT AT 99%, ON VENT W/ SETTING AC 14, Fi 02 40%, tv 500 peep 5, BR, REQUIRE REPOSITION FOR COMFORT AND WOUND TREATMENT ON SACRUM, HD DONE REPORTED BY AM RN AT 1 l OUTY, S/P THORACENTESIS DONE TODAY PER AM RN. WILL CONTINUE TO MONITOR AND PROVIDE CARE.
[2017-02-19] VITALS (8 sets, daily range): BP systolic 87–139; BP diastolic 35–69
[2017-02-19] MEDS: METOCLOPRAMIDE HCL 10 MG/10 ML UDC GT SCH ×4 (00:21→18:35)
[2017-02-19] MEDS: ALBUTEROL FS 2.5 MG/0.5 ML VIAL.NEB NEB SCH ×3 (00:46→20:05)
[2017-02-19] MEDS: IPRATROPIUM NEB FS 0.5 MG/2.5 ML AMPUL.NEB NEB SCH ×4 (00:47→20:17)
[2017-02-19] MEDS: RENAL NOVASOURCE 1,000 ML BOTTLE GT PRN (02:11)
[2017-02-19] MEDS: SEVELAMER CARBONATE 0.8 GM POWD.PACK GT SCH ×3 (04:36→20:50)
[2017-02-19] MEDS: MIDODRINE HCL (5MG) 5 MG TABLET PO SCH ×3 (04:37→20:50)
--- NOTE | 2017-02-19 06:27 | NUR ---
329-1 TELE/RN CLOSING NOTES PATIENT ALERT, ORIENTED X2.EXTENSIVE ASSISTANCE AT ALL TIMES, ON GTUBE W/ NO RESIDUAL,, GTUBE WITH ZERO RESIDUAL WILL CONTINUE TO MONITOR
[2017-02-19 07:31] LABS: BASOPHILS % (AUTO) 0.4 % (0.0-2.0); EOSINOPHILS # (AUTO) 0.2 /CMM (0.0-0.7); EOSINOPHILS % (AUTO) 2.1 % (0.0-6.0); HEMATOCRIT 30 % (33-45); HEMOGLOBIN 9.9 g/dL (11.5-14.8); LYMPHOCYTES # (AUTO) 1.5 /CMM (0.8-4.8); LYMPHOCYTES % (AUTO) 14.4 % (20.0-44.0); MEAN CORPUSCULAR HEMOGLOBIN 32 PG (26.0-33.0); MEAN CORPUSCULAR HGB CONC 33 g/dl (31.0-36.0); MEAN CORPUSCULAR VOLUME 98 fL (82-100); MONOCYTES # (AUTO) 0.7 /CMM (0.1-1.30); MONOCYTES % (AUTO) 6.6 % (2.0-12.0); NEUTROPHILS # (AUTO) 7.8 /CMM (1.8-8.9); NEUTROPHILS % (AUTO) 76.5 % (43.0-81.0); PLATELET COUNT (AUTO) 203 /CMM (150-450); RED BLOOD CELL COUNT(AUTO) 3.09 MIL/uL (4.0-5.2); WHITE BLOOD COUNT (AUTO) 10.2 K/uL (4.3-11.0)
[2017-02-19 07:42] LABS: CALCIUM, SERUM 8.2 mg/dL (8.5-10.1); CARBON DIOXIDE 31 mmol/L (21-32); CHLORIDE 101 mmol/L (98-107); CREATININE 1.3 mg/dL (0.6-1.3); GLUCOSE 129 mg/dL (74-106); POTASSIUM 3.3 mmol/L (3.5-5.1); SODIUM SERUM 137 mmol/L (136-145); UREA NITROGEN, BLOOD 27 mg/dL (7-18)
--- NOTE | 2017-02-19 08:00 | NUR ---
WATCH CRYSTAL EDGE GRINDER NOTES PT VENT DEPENDENT AND STABLE. NO RESPIRATORY SYMPTOMS. DUE TO F/U CHEST X RAY AFTER THORACENTESIS WILL PLACE A STAT CXR ORDER. TUBE FEEDING RUNNING ORDERED. NO RESIDUAL. WILL CONTINUE TO MONITOR.
[2017-02-19] MEDS: LEVETIRACETAM SOL (5 ML) 100 MG/ML UDC GT SCH ×2 (09:16→20:50)
[2017-02-19] MEDS: PROSOURCE / PROSTAT (PYXIS) 30 ML UDC GT SCH (09:20)
[2017-02-19] MEDS: METOPROLOL TARTRATE 25 MG TABLET GT SCH ×2 (09:20→20:22)
[2017-02-19] MEDS: BUMETANIDE (1 MG) 1 MG TABLET GT SCH (09:20)
[2017-02-19] MEDS: VIT B CMPLX 3/FA/VIT C/BIOTIN 1 TAB TABLET GT SCH (09:22)
[2017-02-19] MEDS: ACIDOPHILUS/BULGARICUS 1 EACH TAB.CHEW GT SCH ×2 (09:22→20:50)
[2017-02-19] MEDS: ZINC SULFATE 220 MG CAPSULE PO SCH (09:23)
--- NOTE | 2017-02-19 09:31 | NUR ---
WINE BOTTLE INSPECTOR NOTES MESSAGE TO DR DUNHAM FOR F.U CHEST X RAY.PATIENT STABLE AT THIS TIME
[2017-02-19] MEDS: HYDROGEL DRESSING 90 GM TUBE TP SCH (09:33)
[2017-02-19] MEDS: Z GUARD REMEDY 2 OZ OINT TP SCH (09:34)
[2017-02-19] MEDS: MUPIROCIN OINT 2% 22 GM TUBE SCH ×2 (09:34→20:57)
[2017-02-19] MEDS ORDERED: POTASSIUM CL. PREMIX PERIPHER. 50 ML IV SCH (10:28)
--- NOTE | 2017-02-19 12:00 | NUR ---
RV SERVICER NOTES DR HAIDER AWARE OF PATIENT CHEST X RAY PNEUMOTHORAX
[2017-02-19] MEDS: Z GUARD REMEDY 2 OZ OINT TP PRN (12:57)
--- NOTE | 2017-02-19 16:30 | NUR ---
SERVICE RESTORER EMERGENCY NOTES SPOKE WITH [facility] HD RN AND STATED ORDER IS FOR HD TODAY 02/19. PER [facility] HD WILL BE COMPLETED TOMORROW 02/20 FOR PATIENT
--- NOTE | 2017-02-19 18:48 | NUR ---
MS RN NOTES PT IS STABLE AND IN NO APPARENT DISTRESS. WILL ENDORSE CARE TO GARMENT SEWER HAND NURSE FOR CONNOR. BEDSIDE RAILS ARE UP X3. BED IS LOCKED AND LOWERED.
[2017-02-20] VITALS (8 sets, daily range): BP systolic 75–111; BP diastolic 38–81
--- NOTE | 2017-02-20 00:30 | NUR ---
rn notes medication was given and scanned but not read by computer
[2017-02-20] MEDS: ALBUTEROL FS 2.5 MG/0.5 ML VIAL.NEB NEB SCH ×4 (01:45→19:35)
[2017-02-20] MEDS: IPRATROPIUM NEB FS 0.5 MG/2.5 ML AMPUL.NEB NEB SCH ×4 (02:04→19:35)
[2017-02-20] MEDS: RENAL NOVASOURCE 1,000 ML BOTTLE GT PRN (04:03)
[2017-02-20] MEDS: MIDODRINE HCL (5MG) 5 MG TABLET PO SCH ×3 (04:24→21:01)
[2017-02-20] MEDS: SEVELAMER CARBONATE 0.8 GM POWD.PACK GT SCH ×3 (04:25→21:01)
[2017-02-20] MEDS: METOCLOPRAMIDE HCL 10 MG/10 ML UDC GT SCH ×5 (05:05→23:45)
--- NOTE | 2017-02-20 07:53 | NUR ---
PT IS RESTING IN BED. NO SIGNS AND SYMPTOMS OF DISTRESS NOTED. PT IS ON VENTILATOR. WILL CONTINUE TO MONITOR. SIDE RAILS ARE RAISED X3. BED IS LOCKED AND LOWERED.
--- NOTE | 2017-02-20 08:41 | NUR ---
MS RN NOTES DIALYSIS NURSE AT BEDSIDE.
[2017-02-20] MEDS: METOPROLOL TARTRATE 25 MG TABLET GT SCH ×2 (09:00→21:00)
[2017-02-20] MEDS: BUMETANIDE (1 MG) 1 MG TABLET GT SCH (09:00)
--- NOTE | 2017-02-20 10:17 | NUR ---
MS RN NOTES SPOKE TO DR. DUNHAM. DISCHARGE WILL BE RESCHEDULED FOR TOMORROW 02/21/17 SINCE DIALYSIS WAS PERFORMED TODAY.
[2017-02-20] MEDS: CALCITRIOL ORAL SOLUTION 1 MCG/ML GT SCH (10:44)
[2017-02-20] MEDS: PROSOURCE / PROSTAT (PYXIS) 30 ML UDC GT SCH (10:46)
[2017-02-20] MEDS: VIT B CMPLX 3/FA/VIT C/BIOTIN 1 TAB TABLET GT SCH (10:46)
[2017-02-20] MEDS: LEVETIRACETAM SOL (5 ML) 100 MG/ML UDC GT SCH ×2 (10:46→21:01)
[2017-02-20] MEDS: ZINC SULFATE 220 MG CAPSULE PO SCH (10:46)
[2017-02-20] MEDS: ACIDOPHILUS/BULGARICUS 1 EACH TAB.CHEW GT SCH ×2 (10:52→21:01)
[2017-02-20] MEDS: MUPIROCIN OINT 2% 22 GM TUBE SCH ×2 (11:12→21:52)
[2017-02-20] MEDS: HYDROGEL DRESSING 90 GM TUBE TP SCH (11:12)
[2017-02-20] MEDS: Z GUARD REMEDY 2 OZ OINT TP SCH (11:13)
--- NOTE | 2017-02-20 12:01 | NUR ---
MS RN NOTES NOTIFIED DR. REYNAGA ABOUT PATIENTS LOW BLOOD PRESSURE. LEFT A MESSAGE.
--- NOTE | 2017-02-20 12:14 | NUR ---
CLOTH BALE HEADER NOTES JAIR STATED OK TO GIVE BOLUS OF 500 NS FOR PATIENT BP AND MONITOR
[2017-02-20] MEDS ORDERED: IV NS 0.9% 500 ML IV ONE (12:30)
[2017-02-20] MEDS ORDERED: LIDOCAINE MPF 1%-EPI 1:200,000 30 ML VIAL IJ ONE (14:00)
--- NOTE | 2017-02-20 18:50 | NUR ---
SWING RIDE OPERATOR NOTES PT IS RESTING IN BED. BEDSIDE RAILS ARE UP X3. BED IS LOCKED AND LOWERED. FAMILY IS AT BEDSIDE. WILL ENDORSE CARE TO THROUGH FREIGHT ENGINEER NURSE FOR CONNOR.
--- NOTE | 2017-02-20 20:42 | NUR ---
TELE/RN NOTES RECEIVED PATIENT IN BED ALERTX2, ABLE TO COMMUNICATE BY CLAPPING HANDS AND REPOND TO QUESTIONS BY NOD. ON VENT REQUIRE SUCTION PRN. GTUBE FEEDING AND W/ NO RESIDUALS. MONITORING FOR ANY PAIN OR DISCOMFORT. RECEIVE ENDORSEMENT FROM AM RN REGARDING CONNOR. WILL CONTINUE TO MONITOR,
[2017-02-21] VITALS (7 sets, daily range): BP systolic 95–124; BP diastolic 48–64
[2017-02-21] MEDS: IPRATROPIUM NEB FS 0.5 MG/2.5 ML AMPUL.NEB NEB SCH ×4 (02:02→20:02)
[2017-02-21] MEDS: ALBUTEROL FS 2.5 MG/0.5 ML VIAL.NEB NEB SCH ×4 (02:03→20:01)
[2017-02-21] MEDS: METOCLOPRAMIDE HCL 10 MG/10 ML UDC GT SCH ×3 (05:03→17:54)
[2017-02-21] MEDS: MIDODRINE HCL (5MG) 5 MG TABLET PO SCH ×2 (05:05→12:53)
[2017-02-21] MEDS: SEVELAMER CARBONATE 0.8 GM POWD.PACK GT SCH ×2 (05:08→12:44)
--- NOTE | 2017-02-21 06:33 | NUR ---
TELE/RN NOTES PATIENT RESTING COMFORTABLY IN BED, SKIN WARM TO TOUCH, EXTENSIVE ASSISTANCE REQUIRES, RESPIRATION EVEN AND UNLABORED, WILL ENDORSE TO AM RN FOR CONNOR
--- NOTE | 2017-02-21 07:30 | NUR ---
CONSUMER EDUCATOR OPENING RECEIVED PATIENT TRACH DEPENDENT A/OX1 NON VERBAL. PATIENT APPEARS STABLE AT THIS TIME. PATIENT REPOSITIONED FOR INCREASED COMFORT AND BED LOWERED AND LOCKED, RAILS UPX3 FOR SAFETY AND WILL ROUND Q2H OR LESS PER NEEDS.
[2017-02-21] MEDS ORDERED: SILVER NITRATE APPLICATOR 1 EA BOX TP ONE (09:00)
[2017-02-21] MEDS: METOPROLOL TARTRATE 25 MG TABLET GT SCH ×2 (09:00→21:00)
[2017-02-21] MEDS: BUMETANIDE (1 MG) 1 MG TABLET GT SCH (09:54)
[2017-02-21] MEDS: VIT B CMPLX 3/FA/VIT C/BIOTIN 1 TAB TABLET GT SCH (09:54)
[2017-02-21] MEDS: ACIDOPHILUS/BULGARICUS 1 EACH TAB.CHEW GT SCH (09:54)
[2017-02-21] MEDS: ZINC SULFATE 220 MG CAPSULE PO SCH (09:54)
[2017-02-21] MEDS: PROSOURCE / PROSTAT (PYXIS) 30 ML UDC GT SCH (09:55)
[2017-02-21] MEDS: HYDROGEL DRESSING 90 GM TUBE TP SCH (09:55)
[2017-02-21] MEDS: Z GUARD REMEDY 2 OZ OINT TP SCH (09:55)
[2017-02-21] MEDS: LEVETIRACETAM SOL (5 ML) 100 MG/ML UDC GT SCH (09:59)
[2017-02-21] MEDS: CALCITRIOL ORAL SOLUTION 1 MCG/ML GT SCH (09:59)
[2017-02-21] MEDS: MUPIROCIN OINT 2% 22 GM TUBE SCH (10:01)
--- NOTE | 2017-02-21 11:45 | NUR ---
PHLEBOTOMY SUPPORT TECH NOTES DR ANA PAULA LYLES AT BEDSIDE FOR DEBRIDEMENT. PATIENT STABLE
[2017-02-21] MEDS: Z GUARD REMEDY 2 OZ OINT TP PRN ×2 (12:53→17:54)
--- NOTE | 2017-02-21 15:32 | NUR ---
VISUAL EFFECTS ARTIST NOTES PATIENT REPORT GIVEN TO RN KALYN AT [facility]. PATIENT TO BE PICKED UP AT 5PM
--- NOTE | 2017-02-21 18:38 | NUR ---
CASE ASSEMBLER NOTES EMT CREW HERE TO PICK PATIENT UP. PATIENT HAS JUST THROWN UP AND HEART RATE 130'S. VS 124/64 99% RA, NO S/S RESPIRATORY COMPLICATIONS, SOB. PLACING ON TELE OBSERVATION. MESSAGE TO DR MELÉNDEZ.
--- NOTE | 2017-02-21 18:51 | NUR ---
MINERAL SURVEYING TECHNICIAN NOTES MESSAGE TO DR ADAM TO NOTIFY PATIENT VOMIT, HR ABOUT 115-120 10 MINUTES POST VOMITING. PATIENT VS STABLE
--- NOTE | 2017-02-21 18:57 | NUR ---
YARN MERCERIZER OPERATOR NOTES PER DR ADAM HE IS NOT PATIENT FINANCIAL COUNSELOR AT [place]. EXCHANGE INFORMED THEY ARE NOT AWARE WHO IS PATIENT FINANCIAL COUNSELOR...THEY WILL PAGE MD LILLY. WILL ENDORSE CARE TO RN FOR FOR CONNOR. PATIENT APPEARS STABLE AT THIS TIME.
--- NOTE | 2017-02-21 19:15 | NUR ---
NEWS OPERATIONS MANAGER NOTES SPOKE WITH DR ARMAS AND NOTIFIED OF PATIENT UPDATE. CURRENTLY 119 HR. PER MD KEEP PATIENT TONIGHT AND MONITOR. NO NEW ORDERS
--- NOTE | 2017-02-21 19:44 | NUR ---
RN OPENING NOTES RECEIVED REPORT FROM DAYSHIFT RNJENNIFER. FOUND Pt ASLEEP RESTING IN BED. NO S/S OF ACUTE DISTRESS OR SOB NOTED. Pt IS A/OX1-2, GUYANESE SPEAKING. ON VENT SETTINGS: AC 14, TV 500, PEEP 5, FIO2 40%, WITH PORTEX #8. ON TELE, WITH AFIB 120's. SAFETY MEASURES IN PLACE, BED LOW LOCKED, HOB ELEVATED, SIDE RAILS UP, CALL LIGHT AND BEDSIDE TABLE WITHIN REACH. WILL CONTINUE TO MONITOR Pt THROUGHOUT THE NIGHT FOR SAFETY.
--- NOTE | 2017-02-21 19:45 | NUR ---
RN NOTES DAYSHIFT AYLIN RODRIGUEZ SPOKE WITH DR. ARMAS ON THE PHONE. INFORMED MD OF THE Pt's SITUATION OF HOW SHE STARTED VOMITING AND HR WENT UP TO 130's. MD SAID TO CANCEL THE D/C FOR TODAY AND KEEP THE Pt FOR ONE MORE NIGHT FOR MONITORING, AND WILL DECIDE TOMORROW IF Pt IS STABLE ENOUGH TO BE TRANSFERRED BACK TO THE SNF. Pt HAS NOT VOMITED SINCE HER X1 EPISODE EARLIER.
--- NOTE | 2017-02-21 20:45 | NUR ---
RN NOTES Pt HAS A ORAL TEMP OF 101.5F. BUT Pt DOES NOT HAVE A PRN ORDER FOR TYLENOL. CALLED DR CALIX's OFFICE: . SPOKE TO THE OFFICE CHIPPER FEEDER LEFT A MESSAGE STATING THAT I NEED AN ORDER FOR THE Pt. GAVE THE CALL BACK NUMBER TO THE UNIT. WAITING FOR MD TO CALL BACK SO Pt CAN GET AN ORDER FOR TYLENOL AND POSSIBLE BLOOD CX LABS DUE TO HIGH FEVER.
[2017-02-22] VITALS (8 sets, daily range): BP systolic 86–104; BP diastolic 42–48
--- NOTE | 2017-02-22 | NUR ---
RECHECKED TEMP WENT DOWN TO 99.5
[2017-02-22] MEDS: SEVELAMER CARBONATE 0.8 GM POWD.PACK GT SCH ×4 (00:01→21:22)
[2017-02-22] MEDS: LEVETIRACETAM SOL (5 ML) 100 MG/ML UDC GT SCH ×3 (00:01→21:22)
[2017-02-22] MEDS: MIDODRINE HCL (5MG) 5 MG TABLET PO SCH ×4 (00:03→21:23)
[2017-02-22] MEDS: ACIDOPHILUS/BULGARICUS 1 EACH TAB.CHEW GT SCH ×3 (00:03→21:23)
[2017-02-22] MEDS: METOCLOPRAMIDE HCL 10 MG/10 ML UDC GT SCH ×4 (00:08→19:01)
[2017-02-22] MEDS: MUPIROCIN OINT 2% 22 GM TUBE SCH ×3 (00:17→21:49)
--- NOTE | 2017-02-22 01:30 | NUR ---
RN NOTES THERE WAS NO NOVASOURCE RENAL GT FEEDING BAG FOR Pt IN THE KITCHEN. CALLED NURSE SUP. PIEDRA AND GOT A NOVASOURCE GTF BAG FROM THE OFFICE.
[2017-02-22] MEDS: ALBUTEROL FS 2.5 MG/0.5 ML VIAL.NEB NEB SCH ×4 (01:33→20:09)
[2017-02-22] MEDS: IPRATROPIUM NEB FS 0.5 MG/2.5 ML AMPUL.NEB NEB SCH ×4 (01:33→20:09)
[2017-02-22] MEDS: RENAL NOVASOURCE 1,000 ML BOTTLE GT PRN (02:05)
--- NOTE | 2017-02-22 02:05 | NUR ---
RN NOTES STARTED Pt ON GTFEEDING. NIKKI @50ML/[id number].
--- NOTE | 2017-02-22 03:48 | NUR ---
RN NOTES TEMP GOING BACK UP TO 99.9F. CALLED DR. CALIX's OFFICE NUMBER SPOKE WITH FAREED ON THE PHONE. WAITING FOR MD TO CALL BACK
--- NOTE | 2017-02-22 03:51 | NUR ---
RN NOTES SPOKE WITH DR. ARMAS ON THE PHONE AND INFORMED HER OF Pt's TEMP OF 99.9F ORDERED TYLENOL 650MG Q6H PRN. AM LABS: CBC, BMP. CXR & URINALYSIS.
[2017-02-22] MEDS ORDERED: ACETAMINOPHEN 325 MG TABLET ONE (04:13)
[2017-02-22] MEDS: ACETAMINOPHEN 325 MG TABLET PO PRN (04:15)
--- NOTE | 2017-02-22 06:45 | NUR ---
RN CLOSING NOTES NO SIGNIFICANT CHANGES IN Pt's CONDITION. Pt APPEARS TO BE STABLE. NO S/S OF ACUTE DISTRESS OR SOB NOTED DURING THE NIGHT. NO VOMITING DURING SHIFT. TELE READING AFIB 85-90's. ALL NEEDS MET AND ATTENDED TO. SAFETY MEASURES IN PLACE. WILL ENDORSE TO DAYSHIFT RN FOR Pt's CONNOR.
[2017-02-22 07:20] LABS: APPEARANCE,URINE CLOUDY (CLEAR); BILIRUBIN,URINE 1+ (NEGATIVE); BLOOD, URINE 1+ Ery/uL (NEGATIVE); COLOR,URINE YELLOW (YELLOW); KETONES,URINE NEGATIVE (NEGATIVE); LEUKOCYTE ESTERASE ,URINE 3+ (NEGATIVE); NITRITE, URINE NEGATIVE (NEGATIVE); PROTEIN,URINE 1+ mg/dl (NEGATIVE); UGLUCOSE NEGATIVE (NEGATIVE); UROBILINOGEN,URINE 0.2 EU/dL (0.2)
[2017-02-22 07:22] LABS: BASOPHILS # (AUTO) 0.1 /CMM (0.0-0.2); BASOPHILS % (AUTO) 0.4 % (0.0-2.0); EOSINOPHILS # (AUTO) 0.1 /CMM (0.0-0.7); EOSINOPHILS % (AUTO) 0.7 % (0.0-6.0); HEMATOCRIT 30 % (33-45); HEMOGLOBIN 9.7 g/dL (11.5-14.8); LYMPHOCYTES # (AUTO) 1.5 /CMM (0.8-4.8); MEAN CORPUSCULAR HEMOGLOBIN 32 PG (26.0-33.0); MEAN CORPUSCULAR HGB CONC 32 g/dl (31.0-36.0); MEAN CORPUSCULAR VOLUME 98 fL (82-100); MONOCYTES # (AUTO) 0.9 /CMM (0.1-1.30); NEUTROPHILS # (AUTO) 9.2 /CMM (1.8-8.9); NEUTROPHILS % (AUTO) 77.9 % (43.0-81.0); PLATELET COUNT (AUTO) 200 /CMM (150-450); RED BLOOD CELL COUNT(AUTO) 3.06 MIL/uL (4.0-5.2); WHITE BLOOD COUNT (AUTO) 11.8 K/uL (4.3-11.0)
[2017-02-22 07:36] LABS: BACTERIA,URINE 1+ /HPF (None Seen); WBC,URINE 21-50 /HPF (0-3); YEAST,URINE Moderate /HPF (None Seen)
--- NOTE | 2017-02-22 07:45 | NUR ---
UNDERCOAT SPRAYER NOTES PT IN BED, ASLEEP, EASY TO AROUSE, NOT IN DISTRESS, VENT IN PLACE, NO FACIAL GRIMACING OR MOANING, GT FEEDING INFUSING, DAUGHTER AT BEDSIDE, KEPT PT, WARM AND COMFORTABLE.
[2017-02-22 07:54] LABS: CALCIUM, SERUM 8.7 mg/dL (8.5-10.1); CARBON DIOXIDE 33 mmol/L (21-32); CHLORIDE 104 mmol/L (98-107); CREATININE 1.6 mg/dL (0.6-1.3); GLUCOSE 149 mg/dL (74-106); SODIUM SERUM 141 mmol/L (136-145); UREA NITROGEN, BLOOD 53 mg/dL (7-18)
[2017-02-22] MEDS: METOPROLOL TARTRATE 25 MG TABLET GT SCH ×2 (09:00→21:00)
[2017-02-22] MEDS: BUMETANIDE (1 MG) 1 MG TABLET GT SCH (09:00)
[2017-02-22] MEDS: VIT B CMPLX 3/FA/VIT C/BIOTIN 1 TAB TABLET GT SCH (10:01)
[2017-02-22] MEDS: ZINC SULFATE 220 MG CAPSULE PO SCH (10:01)
[2017-02-22] MEDS: CALCITRIOL ORAL SOLUTION 1 MCG/ML GT SCH (10:02)
[2017-02-22] MEDS: HYDROGEL DRESSING 90 GM TUBE TP SCH (10:03)
[2017-02-22] MEDS: PROSOURCE / PROSTAT (PYXIS) 30 ML UDC GT SCH (10:12)
[2017-02-22] MEDS: Z GUARD REMEDY 2 OZ OINT TP SCH (12:42)
--- NOTE | 2017-02-22 15:20 | NUR ---
PROCESS ARCHITECT NOTES PT IN BED, RESTING, PT COMPLETED DIALYSIS, VITALS STABLE, PT SEEN BY DR. PAWEL MD INFORMED OF CURRENT POTASSIUM LEVEL, NO NEW ORDER GIVEN.
[2017-02-22] MEDS ORDERED: MEROPENEM 1 G in IV NS 0.9% 100 ML IV SCH (19:00)
--- NOTE | 2017-02-22 19:05 | NUR ---
ASSURANCE SPECIALIST NOTES PT IN BED, RESTING, NOT IN DISTRESS, FAMILY AT BEDSIDE, NO SIGN OF PAIN OR ANY DISCOMFORT, PM MEDS GIVEN ORDERED, TREATMENT DONE AND DRESSING CHANGE DONE TO SACRAL PRESSURE ULCER, TURNED AND REPOSITIONED Q2 HRS, PM CARE RENDERED, ALL NEEDS ATTENDED.
--- NOTE | 2017-02-22 19:40 | NUR ---
RN OPENING NOTES RECEIVED REPORT FROM GRIFFIN GARCIA RN. SON VISITING AT BEDSIDE. FOUND Pt ASLEEP, RESTING IN BED. NO S/S OF ACUTE DISTRESS OR SOB NOTED. EQUAL CHEST RISE AND FALL. NO SIGNS OF PAIN AT THIS TIME. Pt IS A/OX1-2, WALLISIAN SPEAKING ONLY. VENT SETTINGS: AC 14, TV 500, FIO2 40%, PEEP 5, WITH PORTEX #8. ON TELE, AFIB 80's-90's. HD TODAY WITH 1L OUT. SAFETY MEASURES IN PLACE. BED LOW, LOCKED, HOB ELEVATED, SIDE RAILS UPS, CALL LIGHT AND BEDSIDE TABLE WITHIN REACH. WILL CONTINUE TO MONITOR Pt THROUGHOUT THE NIGHT FOR SAFETY.
--- NOTE | 2017-02-22 21:00 | NUR ---
RN NOTES Pt VOMITED X1 TODAY. SUCTIONED. CLEANED BED AND Pt. PLACE NEW GOWN AND BEDSHEETS. WILL CONTINUE TO MONITOR Pt
[2017-02-22] MEDS: MEROPENEM 500 MG in IV NS 0.9% 50 ML IV SCH (21:03)
[2017-02-23 00:32] VITALS: BP 90/46
[2017-02-23] MEDS: IPRATROPIUM NEB FS 0.5 MG/2.5 ML AMPUL.NEB NEB SCH ×4 (01:20→19:39)
[2017-02-23] MEDS: ALBUTEROL FS 2.5 MG/0.5 ML VIAL.NEB NEB SCH ×4 (01:20→19:39)
[2017-02-23] MEDS: METOCLOPRAMIDE HCL 10 MG/10 ML UDC GT SCH ×4 (01:49→17:45)
[2017-02-23] MEDS: RENAL NOVASOURCE 1,000 ML BOTTLE GT PRN (01:54)
[2017-02-23 04:41] VITALS: BP 88/32
[2017-02-23] MEDS: SEVELAMER CARBONATE 0.8 GM POWD.PACK GT SCH (05:42)
[2017-02-23] MEDS: MIDODRINE HCL (5MG) 5 MG TABLET PO SCH ×3 (05:43→21:26)
--- NOTE | 2017-02-23 06:41 | NUR ---
RN CLOSING NOTES NO VOMITING AFTER THAT X1. Pt REMAINS STABLE. NO FEVER. NO OTHER SIGNIFICANT CHANGES NOTED DURING THE NIGHT. NO S/S OF ACUTE DISTRESS OR SEVERE SOB NOTED DURING THE NIGHT. ALL NEEDS MET AND ATTENDED TO. SAFETY MEASURES IN PLACE. WILL ENDORSE TO DAYSHIFT RN FOR Pt's CONNOR. TELE READING AFIB 72.
[2017-02-23 07:19] VITALS: BP 104/50
--- NOTE | 2017-02-23 07:38 | NUR ---
DIRECTOR ORGANIZATIONAL NOTES PT SLEEPING, EASILY AROUSABLE, VENT IN PLACE, GTUBE FEEDING RUNNING. NO SIGNS OF DISCOMFORT OR PAIN. CALL LIGHT WITHIN REACH.
[2017-02-23 07:49] LABS: BASOPHILS % (AUTO) 0.4 % (0.0-2.0); CALCIUM, SERUM 8.8 mg/dL (8.5-10.1); CARBON DIOXIDE 30 mmol/L (21-32); CHLORIDE 105 mmol/L (98-107); CREATININE 1.4 mg/dL (0.6-1.3); EOSINOPHILS # (AUTO) 0.4 /CMM (0.0-0.7); EOSINOPHILS % (AUTO) 4.4 % (0.0-6.0); GLUCOSE 121 mg/dL (74-106); HEMATOCRIT 30 % (33-45); HEMOGLOBIN 9.6 g/dL (11.5-14.8); LYMPHOCYTES # (AUTO) 1.4 /CMM (0.8-4.8); LYMPHOCYTES % (AUTO) 17.1 % (20.0-44.0); MAGNESIUM 2.3 mg/dL (1.8-2.4); MEAN CORPUSCULAR HEMOGLOBIN 32 PG (26.0-33.0); MEAN CORPUSCULAR HGB CONC 32 g/dl (31.0-36.0); MEAN CORPUSCULAR VOLUME 99 fL (82-100); MONOCYTES # (AUTO) 0.8 /CMM (0.1-1.30); MONOCYTES % (AUTO) 9.2 % (2.0-12.0); NEUTROPHILS # (AUTO) 5.8 /CMM (1.8-8.9); NEUTROPHILS % (AUTO) 68.9 % (43.0-81.0); PHOSPHORUS 1.9 mg/dL (2.5-4.9); PLATELET COUNT (AUTO) 196 /CMM (150-450); RDW COEFFICIENT OF VARIATION 17.3 (11.5-15.0); RED BLOOD CELL COUNT(AUTO) 3.03 MIL/uL (4.0-5.2); SODIUM SERUM 145 mmol/L (136-145); UREA NITROGEN, BLOOD 40 mg/dL (7-18); WHITE BLOOD COUNT (AUTO) 8.4 K/uL (4.3-11.0)
[2017-02-23 07:54] LABS: POTASSIUM 2.8 mmol/L (3.5-5.1)
[2017-02-23] MEDS: ACIDOPHILUS/BULGARICUS 1 EACH TAB.CHEW GT SCH ×2 (08:13→21:25)
[2017-02-23] MEDS: VIT B CMPLX 3/FA/VIT C/BIOTIN 1 TAB TABLET GT SCH (08:13)
[2017-02-23] MEDS: ZINC SULFATE 220 MG CAPSULE PO SCH (08:13)
[2017-02-23] MEDS: CALCITRIOL ORAL SOLUTION 1 MCG/ML GT SCH (08:13)
[2017-02-23] MEDS: PROSOURCE / PROSTAT (PYXIS) 30 ML UDC GT SCH (08:13)
[2017-02-23] MEDS: LEVETIRACETAM SOL (5 ML) 100 MG/ML UDC GT SCH ×2 (08:13→21:25)
[2017-02-23] MEDS: Z GUARD REMEDY 2 OZ OINT TP SCH (08:14)
[2017-02-23] MEDS: MUPIROCIN OINT 2% 22 GM TUBE SCH ×2 (08:14→21:26)
[2017-02-23] MEDS: HYDROGEL DRESSING 90 GM TUBE TP SCH (08:14)
[2017-02-23] MEDS: MEROPENEM 500 MG in IV NS 0.9% 50 ML IV SCH ×2 (08:15→20:17)
[2017-02-23] MEDS: METOPROLOL TARTRATE 25 MG TABLET GT SCH ×2 (09:00→21:00)
[2017-02-23] MEDS: BUMETANIDE (1 MG) 1 MG TABLET GT SCH (09:00)
[2017-02-23] MEDS ORDERED: POTASSIUM PHOSPHATE MM 15 MMOL in IV D5W 250 ML IV SCH (09:00)
--- NOTE | 2017-02-23 10:40 | NUR ---
PERIOPERATIVE TECH NOTES PT IN BED, ASLEEP, EASY TO AROUSE, NOT IN PAIN OR DISTRESS, SEEN BY DR. ARMAS, INFORMED OF ABNORMAL LAB RESULTS, ORDERS GIVEN AND CARRIED OUT, PER MD, IF PT REMAINS STABLE, MAY D/C BACK TO SNF ON TUESDAY, ON IV ATB THERAPY, KEPT CLEAN AND COMFORTABLE, GT FEEDING INFUSING WELL.
[2017-02-23] MEDS: POTASSIUM PHOSPHATE MM 7.5 MMOL in IV D5W 100 ML IV SCH ×2 (10:41→14:34)
[2017-02-23 12:00] VITALS: BP 107/59
--- NOTE | 2017-02-23 12:02 | NUR ---
HOPPER FEEDER NOTES PT HAS A HX OF HYPOTENSION, RECHECKED BP 107/59. MEDICATIONS HELD.
[2017-02-23] MEDS: POTASSIUM CL. PREMIX PERIPHER. 50 ML IV SCH ×4 (12:29→17:45)
[2017-02-23 16:00] VITALS: BP 113/52
--- NOTE | 2017-02-23 18:24 | NUR ---
WATER CHASER NOTES PT IN BED, RESTING, NOT IN DISTRESS, NO SIGN OF PAIN OR DISTRESS, GT FEEDING INFUSING WELL, KEPT CLEAN AND DRY, TURNED AND REPOSITIONED Q2 HRS, ISOLATION PRECAUTIONS OBSERVED.
--- NOTE | 2017-02-23 19:35 | NUR ---
TELE/RN NOTES RECEIVED PT. LYING IN BED. PT. IS AWAKE, ALERT AND ORIENTED X1. BREATHING EVEN AND UNLABORED. PT. IS TRACH/VENT DEPENDENT. PT. HAS PORTEX #8 TRACH PRESENT AND INTACT. PT. WITH EXTERNAL ESL TUTOR PRESENT AND INTACT. CURRENT RHYTHM = AFIB HR 81. PT. WITH LEFT HAND 24 GAUGE IV SALINE LOCK PRESENT, PATENT AND INTACT. PT. WITH RIGHT FOREARM 22 GAUGE IV SALINE LOCK PRESENT, PATENT AND INTACT. PT. WITH G-TUBE PRESENT AND INTACT, ADMINISTERING TO PT. NOVASOURCE @ 50ML/HR. PT. TOLERATING WELL. NO RESIDUAL NOTED AT THIS TIME. PT. WITH FAMILY MEMBER PRESENT AT BEDSIDE. BED LOCKED AND IN LOWEST POSITION, SIDE RAILS UP X3, CALL LIGHT WITHIN REACH, WILL CONTINUE TO MONITOR.
[2017-02-23 20:00] VITALS: BP 120/56
[2017-02-24] VITALS: BP 136/96
[2017-02-24] MEDS: METOCLOPRAMIDE HCL 10 MG/10 ML UDC GT SCH ×5 (00:19→23:22)
[2017-02-24] MEDS: IPRATROPIUM NEB FS 0.5 MG/2.5 ML AMPUL.NEB NEB SCH ×4 (01:16→20:40)
[2017-02-24] MEDS: ALBUTEROL FS 2.5 MG/0.5 ML VIAL.NEB NEB SCH ×4 (01:16→20:41)
[2017-02-24] MEDS: RENAL NOVASOURCE 1,000 ML BOTTLE GT PRN (02:50)
[2017-02-24 04:00] VITALS: BP 134/67
[2017-02-24] MEDS: MIDODRINE HCL (5MG) 5 MG TABLET PO SCH ×3 (05:59→21:20)
--- NOTE | 2017-02-24 06:28 | NUR ---
TELE/RN NOTES PT. IS LYING IN BED RESTING. BREATHING EVEN AND UNLABORED. PT. IS TRACH/VENT DEPENDENT. PT. HAS PORTEX #8 TRACH PRESENT AND INTACT. PT. WITH EXTERNAL CLASSIFYING MACHINE OPERATOR PRESENT AND INTACT. CURRENT RHYTHM = AFIB HR 102. PT. WITH LEFT HAND 24 GAUGE IV SALINE LOCK PRESENT, PATENT AND INTACT. PT. WITH RIGHT FOREARM 22 GAUGE IV SALINE LOCK PRESENT, PATENT AND INTACT. PT. WITH G-TUBE PRESENT AND INTACT, ADMINISTERING TO PT. NOVASOURCE @ 50ML/HR. PT. TOLERATING WELL. NO RESIDUAL NOTED AT THIS TIME AND THROUGHOUT SHIFT. ALL PT. NEEDS MET. ALL DUE MEDICATIONS GIVEN. BED LOCKED AND IN LOWEST POSITION, SIDE RAILS UP X3, CALL LIGHT WITHIN REACH, WILL ENDORSE TO DAYSILFT NURSE FOR CONTINUITY OF CARE.
[2017-02-24 07:25] VITALS: BP 103/56
[2017-02-24 07:30] LABS: BASOPHILS % (AUTO) 0.3 % (0.0-2.0); EOSINOPHILS # (AUTO) 0.3 /CMM (0.0-0.7); EOSINOPHILS % (AUTO) 2.5 % (0.0-6.0); HEMATOCRIT 28 % (33-45); HEMOGLOBIN 9.2 g/dL (11.5-14.8); LYMPHOCYTES # (AUTO) 1.1 /CMM (0.8-4.8); LYMPHOCYTES % (AUTO) 9.9 % (20.0-44.0); MEAN CORPUSCULAR HEMOGLOBIN 32 PG (26.0-33.0); MEAN CORPUSCULAR HGB CONC 33 g/dl (31.0-36.0); MEAN CORPUSCULAR VOLUME 98 fL (82-100); MONOCYTES # (AUTO) 0.7 /CMM (0.1-1.30); MONOCYTES % (AUTO) 6.2 % (2.0-12.0); NEUTROPHILS # (AUTO) 9.2 /CMM (1.8-8.9); NEUTROPHILS % (AUTO) 81.1 % (43.0-81.0); PLATELET COUNT (AUTO) 197 /CMM (150-450); RED BLOOD CELL COUNT(AUTO) 2.86 MIL/uL (4.0-5.2); WHITE BLOOD COUNT (AUTO) 11.4 K/uL (4.3-11.0)
[2017-02-24] MEDS: MEROPENEM 500 MG in IV NS 0.9% 50 ML IV SCH ×3 (08:00→19:57)
[2017-02-24 08:07] LABS: CALCIUM, SERUM 8.5 mg/dL (8.5-10.1); CARBON DIOXIDE 28 mmol/L (21-32); CHLORIDE 106 mmol/L (98-107); CREATININE 1.6 mg/dL (0.6-1.3); GLUCOSE 164 mg/dL (74-106); MAGNESIUM 2.3 mg/dL (1.8-2.4); PHOSPHORUS 3.3 mg/dL (2.5-4.9); SODIUM SERUM 143 mmol/L (136-145); UREA NITROGEN, BLOOD 55 mg/dL (7-18)
--- NOTE | 2017-02-24 08:32 | NUR ---
RN NOTES HD NURSE AT THE BED SIDE FOR HD.
--- NOTE | 2017-02-24 09:18 | NUR ---
AYLIN NON ADMIN NOTES PATIENT RECEIVING DIALYSIS. NOTIFIED PHARMACY OF NON ADMIN DIALYSIS. WILL ADMIN AFTER DIALYSIS PER PHARMACY. Addendum: 02/24/17 at 1047 by SERGIO REILLY RN CHANGED FROM NON ADMIN TO LATE ADMIN PER AMBROSIO PRADO
--- NOTE | 2017-02-24 09:51 | NUR ---
RN OPENING NOTES RECEIVED PATIENT AWAKE RESTING COMFORTABLY IN BED. NO S/S OF ACUTE DISTRESS OR SOB NOTED. NO SIGNS OF PAIN AT THIS TIME. PATIENT IS A/OX1-2, KYRGYZ SPEAKING ONLY. VENT SETTINGS: AC 14, TV 500, FIO2 40%, PEEP 5, WITH PORTEX #8. ON TELE MONITOR READING AFIB 83. HD ANTICIPATED TODAY. GTUBE PATENT AND INPLACE. RESIDUALS TO BE CHECKED PRIOR TO MEDICATION ADMINISTRATION. PATIENT ON NOVASOURCE @50 ML/HR. IV ACCESS ON THE LEFT HAND 24G AND RFA 22G PATENT AND INTACT. NO S/S OF INFILTRATION. BED LOCKED IN THE LOWEST POSITION WITH THE SIDE RAILS UP X2. WILL CONTINUE TO MONITOR, ASSESS AND EDUCATE PATIENT.
--- NOTE | 2017-02-24 10:47 | NUR ---
RN NOTES HD COMPLETED. 1 L OF FLUIDS REMOVED. PATIENT TOLERATED WELL. BP 101/51. WILL NOW ADMINISTER MEDICATIONS.
--- NOTE | 2017-02-24 10:53 | NUR ---
RN NOTES PRIOR TO LEVELING MACHINE OPERATOR, NO RESIDUALS NOTED. PATIENT NOTED TO BE TOLERATING GTUBE FEEDING WELL.
[2017-02-24] MEDS: PROSOURCE / PROSTAT (PYXIS) 30 ML UDC GT SCH (11:05)
[2017-02-24] MEDS: VIT B CMPLX 3/FA/VIT C/BIOTIN 1 TAB TABLET GT SCH (11:05)
[2017-02-24] MEDS: ZINC SULFATE 220 MG CAPSULE PO SCH (11:05)
[2017-02-24] MEDS: ACIDOPHILUS/BULGARICUS 1 EACH TAB.CHEW GT SCH ×2 (11:05→21:17)
[2017-02-24] MEDS: LEVETIRACETAM SOL (5 ML) 100 MG/ML UDC GT SCH ×2 (11:05→21:17)
[2017-02-24] MEDS: BUMETANIDE (1 MG) 1 MG TABLET GT SCH (11:05)
[2017-02-24] MEDS: HYDROGEL DRESSING 90 GM TUBE TP SCH (11:06)
[2017-02-24] MEDS: MUPIROCIN OINT 2% 22 GM TUBE SCH ×2 (11:06→21:17)
[2017-02-24] MEDS: Z GUARD REMEDY 2 OZ OINT TP SCH (11:07)
[2017-02-24 11:22] VITALS: BP 101/51
[2017-02-24] MEDS: CALCITRIOL ORAL SOLUTION 1 MCG/ML GT SCH (11:35)
--- NOTE | 2017-02-24 12:34 | NUR ---
RN NOTES PATIENT HR READING AT 160'S AFIB. DR. REYNAGA AND DR. ANATOLIY BELTRAN. PATIENT BP 144/77.
[2017-02-24] MEDS ORDERED: METOPROLOL TARTRATE 25 MG TABLET GT ONE (12:45)
--- NOTE | 2017-02-24 12:57 | NUR ---
RN NOTES DR. MELÉNDEZ UPDATED ON PATIENT STATUS. ORDERS GIVEN FOR STATE EKG. DR. MORRISON AWARE OF PATIENT STATUS ORDERS GIVEN FOR LOPRESSOR 25MG ONE TIME GT. WILL CARRY OUT ORDERS AND MONITOR PATIENT.
--- NOTE | 2017-02-24 13:16 | NUR ---
RN NON ADMIN NOTE PATIENT BP 144/77. MIDODRINE HELD.
--- NOTE | 2017-02-24 13:30 | NUR ---
RN NOTES PATIENT HAD TWO EPISODES OF YELLOW EMESIS.
--- NOTE | 2017-02-24 13:43 | NUR ---
RT BREATHING TX WITHHELD AT THIS TIME. ELEVATED HR NOTED (150-155). RN NOTIFIED AND AWARE. SpO2 98%. NO SIGNS OF RESPIRATORY DISTRESS NOTED AT THIS TIME. WILL CONTINUE TO MONITOR THE PATIENT CLOSELY. Addendum: 02/24/17 at 1345 by KARI COKER RT Amended: Links added.
[2017-02-24] MEDS: ACETAMINOPHEN 325 MG TABLET PO PRN (14:14)
--- NOTE | 2017-02-24 14:17 | NUR ---
RN NOTES PATIENT TEMPERATURE CHECK. TEMP 103.4. COOLING MEASURES TO BE IMPLEMENTED.
--- NOTE | 2017-02-24 14:26 | NUR ---
AYLIN COPE NOTIFIED OF PATIENT UNSTABLE HR. ORDERS GIVEN FOR .125MCG DIGOXIN IV ONCE. WILL CARRY OUT GIVEN. Addendum: 02/24/17 at 1442 by SERGIO REILLY RN AYLIN COPE NOTIFIED OF PATIENT UNSTABLE HR. ORDERS GIVEN FOR .125MG DIGOXIN IV ONCE. WILL CARRY OUT GIVEN.
[2017-02-24] MEDS ORDERED: DIGOXIN INJ 0.5 MG/2 ML AMPUL IV ONE (14:30)
--- NOTE | 2017-02-24 15:43 | NUR ---
RN NOTES AFTER ADMINISTRATIONS OF DIGOXIN, HR 105-120. AFTER IMPLEMENTATION OF COOLING MEASURES AND ADMINISTRATION OF TYLENOL, PATIENT TEMP 99.4
[2017-02-24 16:00] VITALS: BP 86/46
--- NOTE | 2017-02-24 19:40 | NUR ---
POWER SHOVEL ENGINEER NOTE RECEIVED PATIENT FROM DAY SHIFT, PATIENT IS ALERT AND ORIENTEDX1, MOUTH WORDING IN UZBEK, TELE MONITOR 84 AFIB, ON VENT DEPENDENT, SATING 100%. ON G TUBE FEEDING NOVASOURCE 50ML/HR, NO RESIDUAL NOTED. FEEDING WILL BE HELD [id number] PER PATIENT VOMITED DURING THE DAY SHIFT. IV ON LEFT HAND AND RIGHT FA IS 22G, HL ONLY. SRX2, BED IN LOW POSITION, CALL LIGHT WITHIN REACH, WILL CONTINUE TO MONITOR PATIENT.
--- NOTE | 2017-02-24 19:49 | NUR ---
RN OPENING NOTES PATIENT AWAKE RESTING COMFORTABLY IN BED. AOX1. KOSOVAN SPEAKING. NO S/S OF ACUTE DISTRESS OR SOB NOTED. NO SIGNS OF PAIN AT THIS TIME. VENT SETTINGS: AC 14, TV 500, FIO2 40%, PEEP 5, WITH PORTEX #8. ON TELE MONITOR READING AFIB 83. HD COMPLETED TODAY WITH 1 L REMOVED. GTUBE PATENT AND IN PLACE. GTUBE FEEDING HELD AFTER PATIENT EPISODE OF EMESIS AND RESTARTED WHEN PATIENT WAS STABLE AND NOT NAUSEATED. PATIENT ON NOVASOURCE @50 ML/HR. IV ACCESS ON THE LEFT HAND 24G AND RFA 22G PATENT AND INTACT. NO S/S OF INFILTRATION. BED LOCKED IN THE LOWEST POSITION WITH THE SIDE RAILS UP X2. PATIENT HAS NO FEVER. HR WNL. NO NAUSEA OR VOMITING PRESENT. ALL NEEDS MET. ALL MEDS GIVEN APPROPRIATE. WILL ENDORSE TO NIGHT RN FOR CONNOR. Addendum: 02/24/17 at 2113 by SERGIO REILLY RN RN CLOSING NOTES PATIENT AWAKE RESTING COMFORTABLY IN BED. AOX1. KOSOVAN SPEAKING. NO S/S OF ACUTE DISTRESS OR SOB NOTED. NO SIGNS OF PAIN AT THIS TIME. VENT SETTINGS: AC 14, TV 500, FIO2 40%, PEEP 5, WITH PORTEX #8. ON TELE MONITOR READING AFIB 83. HD COMPLETED TODAY WITH 1 L REMOVED. GTUBE PATENT AND IN PLACE. GTUBE FEEDING HELD AFTER PATIENT EPISODE OF EMESIS AND RESTARTED WHEN PATIENT WAS STABLE AND NOT NAUSEATED. PATIENT ON NOVASOURCE @50 ML/HR. IV ACCESS ON THE LEFT HAND 24G AND RFA 22G PATENT AND INTACT. NO S/S OF INFILTRATION. BED LOCKED IN THE LOWEST POSITION WITH THE SIDE RAILS UP X2. PATIENT HAS NO FEVER. HR WNL. NO NAUSEA OR VOMITING PRESENT. ALL NEEDS MET. ALL MEDS GIVEN APPROPRIATE. WILL ENDORSE TO NIGHT RN FOR CONNOR.
[2017-02-24 20:00] VITALS: BP 91/49
[2017-02-25] VITALS: BP 91/46
[2017-02-25] MEDS: ALBUTEROL FS 2.5 MG/0.5 ML VIAL.NEB NEB SCH ×4 (02:29→20:29)
[2017-02-25] MEDS: IPRATROPIUM NEB FS 0.5 MG/2.5 ML AMPUL.NEB NEB SCH ×4 (02:30→20:29)
[2017-02-25 04:00] VITALS: BP 86/42
[2017-02-25] MEDS: MIDODRINE HCL (5MG) 5 MG TABLET PO SCH ×3 (05:14→20:59)
[2017-02-25] MEDS: METOCLOPRAMIDE HCL 10 MG/10 ML UDC GT SCH ×4 (05:19→23:43)
[2017-02-25 06:38] VITALS: BP 87/54
--- NOTE | 2017-02-25 07:10 | NUR ---
REPAIR SERVICER NOTE PATIENT IS RESTING IN BED, NO ACUTE DISTRESS THROUGHOUT THE SHIFT. MORNING CARE RENDERED, ALL DUE MEDS GIVEN INDICATED. G TUBE FEEDING TOLERATING WELL, NO S/S OF RESPIRATORY DISTRESS AND FACIAL GRIMACE NOTED. WILL ENDORSE TO DAY SHIFT NURSE FOR CONNOR.
--- NOTE | 2017-02-25 07:39 | NUR ---
RN OPENING NOTES RECEIVED PATIENT AWAKE RESTING COMFORTABLY IN BED. NO S/S OF ACUTE DISTRESS OR SOB NOTED. NO SIGNS OF PAIN AT THIS TIME. PATIENT IS A/OX1-2, FILIPINO SPEAKING ONLY. VENT SETTINGS: AC 14, TV 500, FIO2 40%, PEEP 5, WITH PORTEX #8. ON TELE MONITOR READING AFIB 88. PATIENT SATURATING ADEQUATELY ON VENT SUPPORT. HD DONE YESTERDAY WITH [address] RESIDUALS TO BE CHECKED PRIOR TO MEDICATION ADMINISTRATION. PATIENT ON NOVASOURCE @50 ML/HR. IV ACCESS ON THE LEFT HAND 24G AND RFA 22G PATENT AND INTACT. NO S/S OF INFILTRATION. ISOLATION MEASURES IN PLACE. BED LOCKED IN THE LOWEST POSITION WITH THE SIDE RAILS UP X2. CALL LIGHT WITHIN REACH. WILL CONTINUE TO MONITOR, ASSESS AND EDUCATE PATIENT.
[2017-02-25 08:00] VITALS: BP_SYST 126; BP_SYST 87; BP_DIAS 49; BP_DIAS 54
[2017-02-25] MEDS: METOPROLOL TARTRATE 25 MG TABLET PO SCH ×2 (10:00→21:00)
--- NOTE | 2017-02-25 10:00 | NUR ---
RN NOTES PATIENT GTUBE PATENT AND INTACT. NO RESIDUAL NOTED PRIOR TO PRESALES SENIOR SPECIALIST.
[2017-02-25] MEDS: CALCITRIOL ORAL SOLUTION 1 MCG/ML GT SCH (10:07)
[2017-02-25] MEDS: PROSOURCE / PROSTAT (PYXIS) 30 ML UDC GT SCH (10:08)
[2017-02-25] MEDS: ZINC SULFATE 220 MG CAPSULE PO SCH (10:08)
[2017-02-25] MEDS: LEVETIRACETAM SOL (5 ML) 100 MG/ML UDC GT SCH ×2 (10:08→20:59)
[2017-02-25] MEDS: ACIDOPHILUS/BULGARICUS 1 EACH TAB.CHEW GT SCH ×2 (10:08→20:59)
[2017-02-25] MEDS: MEROPENEM 500 MG in IV NS 0.9% 50 ML IV SCH (10:08)
[2017-02-25] MEDS: BUMETANIDE (1 MG) 1 MG TABLET GT SCH (10:08)
[2017-02-25] MEDS: VIT B CMPLX 3/FA/VIT C/BIOTIN 1 TAB TABLET GT SCH (10:08)
[2017-02-25] MEDS: HYDROGEL DRESSING 90 GM TUBE TP SCH (10:10)
[2017-02-25] MEDS: Z GUARD REMEDY 2 OZ OINT TP SCH (10:11)
[2017-02-25] MEDS: MUPIROCIN OINT 2% 22 GM TUBE SCH ×2 (10:11→20:58)
--- NOTE | 2017-02-25 10:29 | NUR ---
RN NON ADMIN NOTES HELD PATIENT LOPRESSOR. PATIENT BP 97/47 HR 90. PROTOCOL TO HOLD BP IF SBP <100. WILL IMPLEMENT PROTOCOL.
[2017-02-25] MEDS: RENAL NOVASOURCE 1,000 ML BOTTLE GT PRN (10:42)
--- NOTE | 2017-02-25 15:18 | NUR ---
RN NOTES PATIENT SEEN BY DR. PHILLIP [facility] AWARE OF PENICILLIN ALLERGY. NOTIFIED PHARMACIST
[2017-02-25 16:00] VITALS: BP 96/43
[2017-02-25] MEDS: CEFAZOLIN 1 GM in IV NS 0.9% 50 ML IV SCH (17:41)
--- NOTE | 2017-02-25 19:17 | NUR ---
RN CLOSING NOTES PATIENT AWAKE RESTING COMFORTABLY IN BED. AOX1. ALBANIAN SPEAKING. NO S/S OF ACUTE DISTRESS OR SOB NOTED. NO SIGNS OF PAIN AT THIS TIME. VENT SETTINGS: AC 14, TV 500, FIO2 40%, PEEP 5, WITH PORTEX #8. ON TELE MONITOR READING AFIB 81. HD COMPLETED TODAY WITH 1 L REMOVED. GTUBE PATENT AND IN PLACE. GTUBE PATENT AND INPLACE. PATIENT ON NOVASOURCE @50 ML/HR. IV ACCESS ON THE LEFT HAND 24G AND RFA 22G PATENT AND INTACT. NO S/S OF INFILTRATION. BED LOCKED IN THE LOWEST POSITION WITH THE SIDE RAILS UP X2. PATIENT HAS NO FEVER. HR WNL. NO NAUSEA OR VOMITING PRESENT. ALL NEEDS MET. ALL MEDS GIVEN APPROPRIATE. WILL ENDORSE TO NIGHT RN FOR CONNOR.
--- NOTE | 2017-02-25 19:30 | NUR ---
ROLLER HELPER NOTE RECEIVED PATIENT FROM DAY SHIFT, PATIENT IS ALERT AND ORIENTEDX1, MOUTH WORDING IN [place], TELE MONITOR 80 AFIB, ON VENT DEPENDENT, SATING 100%. ON G TUBE FEEDING NOVASOURCE 50ML/HR, NO RESIDUAL NOTED. FEEDING WILL BE HELD [id number] PER ORDER. IV ON LEFT HAND AND RIGHT FA IS 22G, HL ONLY. SRX2, BED IN LOW POSITION, CALL LIGHT WITHIN REACH, WILL CONTINUE TO MONITOR PATIENT.
[2017-02-25 20:00] VITALS: BP 97/52
[2017-02-26] VITALS (10 sets, daily range): BP systolic 88–126; BP diastolic 39–59
[2017-02-26] MEDS: IPRATROPIUM NEB FS 0.5 MG/2.5 ML AMPUL.NEB NEB SCH ×4 (01:20→13:47)
[2017-02-26] MEDS: ALBUTEROL FS 2.5 MG/0.5 ML VIAL.NEB NEB SCH ×4 (01:20→20:49)
[2017-02-26] MEDS: MIDODRINE HCL (5MG) 5 MG TABLET PO SCH ×3 (04:55→21:32)
[2017-02-26] MEDS: METOCLOPRAMIDE HCL 10 MG/10 ML UDC GT SCH ×3 (05:02→19:38)
--- NOTE | 2017-02-26 06:49 | NUR ---
WOMENS HEALTH NURSE PRACTITIONER NOTE PATIENT IS RESTING IN BED, NO ACUTE DISTRESS THROUGHOUT THE SHIFT. MORNING CARE RENDERED, ALL DUE MEDS GIVEN ORDERED. TELE MONITOR AFIB 80. G TUBE FEEDING TOLERATING WELL, NO S/S OF RESPIRATORY DISTRESS AND FACIAL GRIMACE NOTED. WILL ENDORSE TO DAY SHIFT NURSE FOR CONNOR.
--- NOTE | 2017-02-26 08:12 | NUR ---
- patient in bed, alert when called on continous GT FEEDINGS, in upright position , WITH TRACH IN CONNECTED TO VENT , NON-LABORED RESPIRATIONS.
[2017-02-26] MEDS: METOPROLOL TARTRATE 25 MG TABLET PO SCH ×2 (09:00→21:00)
[2017-02-26] MEDS: BUMETANIDE (1 MG) 1 MG TABLET GT SCH (09:39)
[2017-02-26] MEDS: LEVETIRACETAM SOL (5 ML) 100 MG/ML UDC GT SCH ×2 (09:39→21:18)
[2017-02-26] MEDS: PROSOURCE / PROSTAT (PYXIS) 30 ML UDC GT SCH (09:39)
[2017-02-26] MEDS: ZINC SULFATE 220 MG CAPSULE PO SCH (09:39)
[2017-02-26] MEDS: ACIDOPHILUS/BULGARICUS 1 EACH TAB.CHEW GT SCH ×2 (09:39→21:18)
[2017-02-26] MEDS: VIT B CMPLX 3/FA/VIT C/BIOTIN 1 TAB TABLET GT SCH (09:39)
[2017-02-26] MEDS: CEFAZOLIN 1 GM in IV NS 0.9% 50 ML IV SCH (11:39)
[2017-02-26] MEDS: HYDROGEL DRESSING 90 GM TUBE TP SCH (11:44)
[2017-02-26] MEDS: Z GUARD REMEDY 2 OZ OINT TP SCH (11:44)
[2017-02-26] MEDS: MUPIROCIN OINT 2% 22 GM TUBE SCH ×2 (11:44→21:32)
[2017-02-26] MEDS: CALCITRIOL ORAL SOLUTION 1 MCG/ML GT SCH (11:52)
--- NOTE | 2017-02-26 17:46 | NUR ---
- Called MD'S OFFICE & ASKED TO HAVE DR. MIAH ARMAS RE; [phone] AFTER HD, NEW ORDERS GIVEN OF NS 500ML X2 HRS.
[2017-02-26] MEDS ORDERED: IV NS 0.9% 500 ML BAG IV ONE (18:00)
[2017-02-26] MEDS ORDERED: IV NS 0.9% 500 ML IV ONE (18:30)
[2017-02-26] MEDS: ACETAMINOPHEN 325 MG TABLET PO PRN ×2 (18:34→21:21)
[2017-02-26] MEDS ORDERED: DILTIAZEM HCL 50 MG IV IV STA (18:37)
--- NOTE | 2017-02-26 18:38 | NUR ---
CALLED AGAIN DR. Tommie ARMAS RE: [phone] , CHEST PAIN PER PATIENT, & PRN TYLENOL WAS GIVEN THIS TIME., PATIENT ABLE TO COMMUNICATE TO FAMILY MEMBER AT BEDSIDE.
[2017-02-26] MEDS ORDERED: DIGOXIN INJ 0.5 MG/2 ML AMPUL IV ONE (19:00)
--- NOTE | 2017-02-26 19:00 | NUR ---
MS RN OPENING NOTES PT RESTING IN BED, A/OX 1, PT ON VENT ORDERED TOLERATED SAME SETTINGS. HOB ELEVATED S/P DIALYSIS, HR IS 160'S WILL GIVE DIGOXIN PER ORDER. NO S/S OF RESPIRATORY DISTRESS OR SOB. SAFETY MEASURES IN PLACE, ON LOW BED TO ENSURE SAFETY. CALL LIGHT WITHIN REACH. WILL CONTINUE TO MONITOR
--- NOTE | 2017-02-26 19:05 | NUR ---
- AFTER CARDIZEM WAS GIVEN IV , NOTED IU=[phone]; BUT DR. PANDA WAS CALLED & NEW ORDER IS TO GIVE DIGOXIN IV IF CARDIZEM IS NOT EFFECTIVE & TO CLOSELY MONITOR TEMP. FOR AFTER EVERY HD, SIGNS OF FEVER OCCURS.
--- NOTE | 2017-02-26 19:07 | NUR ---
AT THIS TIME, PATIENT IS RESTING , FAMILY MEMBER STILL AT BEDSIDE & NOTED HR CHANGES.
--- NOTE | 2017-02-26 20:14 | NUR ---
BOXING AND PRESSING SUPERVISOR NOTES 20:14 0.125 MG DIGOXIN IV PUSH ORDERED GIVEN HR IS 155 WILL CONTINUE TO MONITOR.
--- NOTE | 2017-02-26 20:30 | NUR ---
MS RN NOTES HR NOW IS 91
--- NOTE | 2017-02-26 20:44 | NUR ---
MS VIERA NOTES TEMP 102. 1 BP 88/42 R 136 COOLING MEASURES PROVIDED WILL CALL PRIMARY MD TO RELAY RESULTS Addendum: 02/27/17 at 0209 by HANK SHEFFIELD RN ADDENDUM: CORRECTION RESPIRATIONS IS 16
--- NOTE | 2017-02-26 20:55 | NUR ---
MS RN NOTES PLACED A CALL TO TOPOGRAPHY TECHNICIAN BROOKE WILL AWAIT CALL BACK
--- NOTE | 2017-02-26 21:07 | NUR ---
SPOKE TO FAC ENGINEER NEPHRO DR. GEORGES ARMAS RELAY LATEST VS OF THE PATIENT ORDERED ONLY TO GIVE TYLENOL GT 325 2 TABS NOTED NO ORDERS AFTER THAT
--- NOTE | 2017-02-26 22:00 | NUR ---
MS RN NOTES TEMP NOW WNL AT 98.5F WILL CONT TO MONITOR, VS STABLE, MADE AWARE, NNO
[2017-02-27] VITALS (10 sets, daily range): BP systolic 74–113; BP diastolic 43–59
[2017-02-27] MEDS: ALBUTEROL FS 2.5 MG/0.5 ML VIAL.NEB NEB SCH ×4 (01:44→20:07)
[2017-02-27] MEDS: IPRATROPIUM NEB FS 0.5 MG/2.5 ML AMPUL.NEB NEB SCH ×4 (01:45→20:07)
[2017-02-27] MEDS: METOCLOPRAMIDE HCL 10 MG/10 ML UDC GT SCH ×4 (01:54→18:42)
[2017-02-27] MEDS: RENAL NOVASOURCE 1,000 ML BOTTLE GT PRN ×2 (01:54→18:27)
[2017-02-27] MEDS: MIDODRINE HCL (5MG) 5 MG TABLET PO SCH ×3 (04:56→21:47)
--- NOTE | 2017-02-27 06:38 | NUR ---
RN NURSERY CLOSING NOTES PATIENT COMFORTABLY ASLEEP AND EASILY AWAKEN, HOB ELEVATED AT ALL TIMES. NO RESPIRATORY DISTRESS AT THIS TIME. IV SITES INTACT WITH NO S/S OF INFILTRATION NOTED. TRACH SECURE IN AND PROPER POSITION. AMBU BAG AT [facility], ON [facility] VENT WITH NOTED SETTINGS, VENT PLUGGED INTO RED OUTLET. NOVASOURCE 40 CC/HR INFUSING ORDERED. FREQUENT VISUAL CHECK DONE FOR SAFETY EVERY 2 HOURS. PATIENT WAS REPOSITIONED EVERY 2 HOURS FOR SKIN MGT. NURSING CARE RENDERED, NEEDS ATTENDED AND ANTICIPATED, KEPT CLEAN AND DRY AND COMFORTABLE, GOOD SKIN CARE PROVIDED. OFFLOAD AT ALL TIMES. SAFE HAZARD FREE ENVIRONMENT PROVIDED. CALL LIGHT WITHIN EASY TO REACH, ON LOW BED AT ALL TIMES TO ENSURE SAFETY, WILL ENDORSE TO THE NEXT SHIFT CONTINUE PLAN OF CARE. VS STABLE. NO TEMP. AFEBRILE.
--- NOTE | 2017-02-27 06:51 | NUR ---
CORRECTION NOVASOURCE INFUSING AT 50 CC/HR
[2017-02-27 06:58] LABS: EOSINOPHILS % (AUTO) 0.1 % (0.0-6.0); HEMATOCRIT 26 % (33-45); HEMOGLOBIN 8.4 g/dL (11.5-14.8); LYMPHOCYTES # (AUTO) 1.1 /CMM (0.8-4.8); LYMPHOCYTES % (AUTO) 3.9 % (20.0-44.0); MEAN CORPUSCULAR HEMOGLOBIN 32 PG (26.0-33.0); MEAN CORPUSCULAR HGB CONC 33 g/dl (31.0-36.0); MEAN CORPUSCULAR VOLUME 98 fL (82-100); MONOCYTES # (AUTO) 1.2 /CMM (0.1-1.30); MONOCYTES % (AUTO) 4.3 % (2.0-12.0); NEUTROPHILS % (AUTO) 91.7 % (43.0-81.0); PLATELET COUNT (AUTO) 172 /CMM (150-450); RDW COEFFICIENT OF VARIATION 17.1 (11.5-15.0); WHITE BLOOD COUNT (AUTO) 28.3 K/uL (4.3-11.0)
[2017-02-27 07:24] LABS: CALCIUM, SERUM 8.1 mg/dL (8.5-10.1); CARBON DIOXIDE 28 mmol/L (21-32); CHLORIDE 101 mmol/L (98-107); CREATININE 1.6 mg/dL (0.6-1.3); GLUCOSE 139 mg/dL (74-106); PHOSPHORUS 2.5 mg/dL (2.5-4.9); POTASSIUM 3.3 mmol/L (3.5-5.1); SODIUM SERUM 138 mmol/L (136-145); UREA NITROGEN, BLOOD 45 mg/dL (7-18)
--- NOTE | 2017-02-27 07:35 | NUR ---
BLUEPRINTING MACHINE OPERATOR OPENING NOTE [id number] REPORT ON THE PATIENT. PATIENT IS ASLEEP IN BED. BED IS LOCKED, IN LOWEST POSITION, SIDE RAILS UP X 3, BED ALARM ION. FOWLERS POSITION. NO RESPIRATORY/CARDIAC DISTRESS NOTED AT THIS TIME. TRACH SECURE IS IN AND PROPER POSITION. AMBU BAG AT [facility] WITH SETTINGS PRESCRIBED. VENT PLUGGED INTO RED OUTLET. NOVASOURCE AT ORDERED RATE. SAFE HAZARD FREE ENVIRONMENT PROVIDED. CALL LIGHT WITHIN REACH. VS WNL. AFEBRILE. CURRENT MONITOR READING CONTROLLED A FIB WITH HR 67. WILL CONTINUE TO MONITOR.
--- NOTE | 2017-02-27 07:40 | NUR ---
BOOKMOBILE DRIVER NOTE PRIMARY MD IS AWARE OF CRITICAL LAB VALUE. INFECTIOUS DISEASE SPECIALIST IS ON THE CASE.
[2017-02-27] MEDS: PROSOURCE / PROSTAT (PYXIS) 30 ML UDC GT SCH (09:00)
[2017-02-27] MEDS: METOPROLOL TARTRATE 25 MG TABLET PO SCH ×2 (09:00→21:49)
[2017-02-27 09:36] LABS: BAND % (MANUAL) 7 % (0.0-5.0); LYMPHOCYTES % (MANUAL) 1 % (16-48); MONOCYTES % (MANUAL) 6 % (0-11.0); NEUTROPHILS % (MANUAL) 86 (42-76)
--- NOTE | 2017-02-27 09:45 | NUR ---
PLASTICS WORKER NOTE PATIENT IS SCHEDULED TO HAVE ANCEF. ANCEF NOT IN THE CASSETTE.
[2017-02-27] MEDS: CALCITRIOL ORAL SOLUTION 1 MCG/ML GT SCH (09:54)
[2017-02-27] MEDS: LEVETIRACETAM SOL (5 ML) 100 MG/ML UDC GT SCH ×2 (09:55→21:46)
[2017-02-27] MEDS: ACIDOPHILUS/BULGARICUS 1 EACH TAB.CHEW GT SCH ×2 (09:55→21:49)
[2017-02-27] MEDS: ZINC SULFATE 220 MG CAPSULE PO SCH (09:56)
[2017-02-27] MEDS: BUMETANIDE (1 MG) 1 MG TABLET GT SCH (09:56)
[2017-02-27] MEDS: VIT B CMPLX 3/FA/VIT C/BIOTIN 1 TAB TABLET GT SCH (09:56)
[2017-02-27] MEDS: MUPIROCIN OINT 2% 22 GM TUBE SCH ×2 (09:57→21:50)
[2017-02-27] MEDS: HYDROGEL DRESSING 90 GM TUBE TP SCH (09:57)
[2017-02-27] MEDS: Z GUARD REMEDY 2 OZ OINT TP SCH (09:57)
--- NOTE | 2017-02-27 11:00 | NUR ---
DATA MODELER NOTE REMOVED PATIENT'S G-TUBE DRESSING TO CHANGE IT, AND OBSERVED THE TUBE PROTRUDING THROUGH THE SKIN, LIKING. FEEDING IS STOP. CHARGE NURSE XOCHITL NOTIFIED THE MD. MD STATED NOT TO RESTART THE PATIENTS FEEDING UNTIL GI CONSULT IS COMPLETED. MD REFERED THE PATIENT TO GI SURGEON. PATIENT IS STABLE. VS WNL. WILL CONTINUE TO MONITOR.
--- NOTE | 2017-02-27 11:20 | NUR ---
INTELLIGENCE SENIOR SERGEANT NOTE DR AT THE BEDSIDE. ASSESSED THE THE G-TUBE SITE AND AUSCULTATED THE ABDOMEN. NO NEW ORDERS RECEIVED AT THIS TIME. PATIENT IS STABLE.
--- NOTE | 2017-02-27 11:36 | NUR ---
VICE PRESIDENT MARKETING & DEVELOPMENT NOTE ADMINISTRING ANCEF AGAINT SCHEDULED TIME IT WAS MISPLACED.
[2017-02-27] MEDS: CEFAZOLIN 1 GM in IV NS 0.9% 50 ML IV SCH (11:43)
--- NOTE | 2017-02-27 12:05 | NUR ---
MS RN NOTE PROCOURSE WAS NOT IN THE KITCHEN WHN DUE. [facility]ITION[facility]. ONCE DELIVER PATIENT'S FEEDING/MEDICATIONS WERE BEING HELD PER MD.
--- NOTE | 2017-02-27 12:42 | NUR ---
RESEARCH ATTORNEY NURSE DEPENDENCY CASE MANAGER INFORMED RN HE COULD NOT TAKE THE ORDERED BLOOD CULTURE, IT HAS TO BE OBTAINED WITH HD PER ORDER. PATIENT IS NOT SCHEDULED FOR HD TODAY. WILL FOLLOW UP/ENDORSE.
--- NOTE | 2017-02-27 12:55 | NUR ---
WIRE GALVANIZER NOTE INFECTIOUS DISEASE SPECIALIST AT THE BEDSIDE. DISCUSSED POSSIBLE TREATMENT PLAN WITH THE PT/FAMILY.
[2017-02-27] MEDS ORDERED: VANCOMYCIN 1 GM in IV D5W 250 ML IV ONE (13:30)
[2017-02-27] MEDS ORDERED: FEE PK DOSING 1 MIN EA MC ONE (13:50)
[2017-02-27] MEDS ORDERED: VANCOMYCIN 500 MG in IV D5W 100 ML IV PRN (15:00)
[2017-02-27] MEDS ORDERED: VANCOMYCIN 500 MG in IV D5W 100 ML IV SCH (15:00)
--- NOTE | 2017-02-27 15:23 | NUR ---
MS RN NOTE DR REECE VANCE AT THE BEDSIDE. G TUBE CHANGED. 20 YI GTUBE INSERTED AT 4 CM SHANON. PATIENT TOLERATED PROCEDURE WELL. RESUME FEEDING PER MD.
[2017-02-27] MEDS: MEROPENEM 1 G in IV NS 0.9% 100 ML IV SCH (15:41)
--- NOTE | 2017-02-27 18:00 | NUR ---
EVAPORATOR HELPER NOTE L/HAND IV DISLODGED. CATHETER TIP IS INTACT. OCCLUSIVE DRESSING APPLIED.
[2017-02-27] MEDS: VANCOMYCIN HCL 125 MG/2.5 ML ORAL.SUSP PO SCH (18:42)
--- NOTE | 2017-02-27 18:52 | NUR ---
NETWORK ACCOUNT MANAGER CLOSING NOTE PATIENT'S SON AT THE BEDSIDE. PATIENT IS ASLEEP IN BED. BED IS LOCKED, IN LOWEST POSITION, SIDE RAILS UP X 3, BED ALARM ION. FOWLERS POSITION. HOB ELEVATED AT ALL TIMES. PATIENT REPOSITIONED EVERY TWO HOURS FOR ULTIMATE LIMB ALIGNMENT. HOURLY ROUNDS CONDUCTED. NO RESPIRATORY/CARDIAC DISTRESS NOTED AT THIS TIME. TRACH SECURE IS IN AND PROPER POSITION. AMBU BAG AT [facility], ON [facility] VENT WITH SETTINGS PRESCRIBED. VENT PLUGGED INTO RED OUTLET. NOVASOURCE AT ORDERED RATE. SAFE HAZARD FREE ENVIRONMENT PROVIDED. CALL LIGHT WITHIN REACH. VS WNL. AFEBRILE. CURRENT MONITOR READING CONTROLLED A FIB WITH HR 74. WILL ENDORSE TO THE NEXT SHIFT FOR CONNOR.
[2017-02-27 21:53] LABS: BILIRUBIN,DIRECT 0.1 mg/dL (0.0-0.2); BILIRUBIN,TOTAL 0.5 mg/dL (0.2-1.0)
[2017-02-28 00:22] VITALS: BP 100/58
[2017-02-28] MEDS: VANCOMYCIN HCL 125 MG/2.5 ML ORAL.SUSP PO SCH ×4 (00:35→18:30)
[2017-02-28] MEDS: METOCLOPRAMIDE HCL 10 MG/10 ML UDC GT SCH ×4 (00:35→18:30)
[2017-02-28] MEDS: MEROPENEM 1 G in IV NS 0.9% 100 ML IV SCH (01:34)
[2017-02-28] MEDS: IPRATROPIUM NEB FS 0.5 MG/2.5 ML AMPUL.NEB NEB SCH ×4 (01:53→20:15)
[2017-02-28] MEDS: ALBUTEROL FS 2.5 MG/0.5 ML VIAL.NEB NEB SCH ×4 (01:53→20:15)
[2017-02-28 04:00] VITALS: BP 106/52
--- NOTE | 2017-02-28 06:30 | NUR ---
pt awake ,alert,with trache on vent.gt feeding stopped at 2200, noted gt site leaking yellowish milky secretions ,stoma is open, gt secured with tape. site covered with mepilex and reinforced with gauze.residual only 20cc. new iv site started to left hand thick secretion when suctioned, had 2 bm formed stool and incontinent of urine. vss,afebrile, a-fib on monitor 70-80's. repositioned for comfort, wound dressing clean and changed.isolation precaution observed. kept attended .
[2017-02-28] MEDS: MIDODRINE HCL (5MG) 5 MG TABLET PO SCH ×3 (06:39→20:52)
[2017-02-28 07:01] LABS: BASOPHILS % (AUTO) 0.4 % (0.0-2.0); EOSINOPHILS # (AUTO) 0.2 /CMM (0.0-0.7); EOSINOPHILS % (AUTO) 1.8 % (0.0-6.0); HEMATOCRIT 25 % (33-45); HEMOGLOBIN 8.2 g/dL (11.5-14.8); LYMPHOCYTES # (AUTO) 1.5 /CMM (0.8-4.8); LYMPHOCYTES % (AUTO) 12.2 % (20.0-44.0); MEAN CORPUSCULAR HEMOGLOBIN 32 PG (26.0-33.0); MEAN CORPUSCULAR HGB CONC 33 g/dl (31.0-36.0); MEAN CORPUSCULAR VOLUME 98 fL (82-100); MONOCYTES # (AUTO) 0.9 /CMM (0.1-1.30); MONOCYTES % (AUTO) 7.2 % (2.0-12.0); NEUTROPHILS # (AUTO) 9.5 /CMM (1.8-8.9); NEUTROPHILS % (AUTO) 78.4 % (43.0-81.0); PLATELET COUNT (AUTO) 158 /CMM (150-450); RDW COEFFICIENT OF VARIATION 16.7 (11.5-15.0); RED BLOOD CELL COUNT(AUTO) 2.55 MIL/uL (4.0-5.2); WHITE BLOOD COUNT (AUTO) 12.2 K/uL (4.3-11.0)
[2017-02-28 07:19] LABS: CALCIUM, SERUM 8.7 mg/dL (8.5-10.1); CARBON DIOXIDE 33 mmol/L (21-32); CHLORIDE 101 mmol/L (98-107); CREATININE 1.9 mg/dL (0.6-1.3); GLUCOSE 88 mg/dL (74-106); MAGNESIUM 2.2 mg/dL (1.8-2.4); PHOSPHORUS 2.8 mg/dL (2.5-4.9); POTASSIUM 3.1 mmol/L (3.5-5.1); SODIUM SERUM 138 mmol/L (136-145); UREA NITROGEN, BLOOD 60 mg/dL (7-18)
[2017-02-28 07:22] LABS: DIGOXIN 0.49 ng/mL (0.90-2.00)
[2017-02-28 08:00] VITALS: BP 98/87
--- NOTE | 2017-02-28 08:00 | NUR ---
MS RN RECEIVED ON BED, NON VERBAL, VENT DEPENDEDNT PATIENT, NOT IN ANY FORM OF DISTRESS, RESPIRATIONS EVEN AND UNLABORED, NO S/S OF PAIN, REPOSITIONED FOR COMFORT,ALL NEEDS ATTENDED.
[2017-02-28] MEDS: METOPROLOL TARTRATE 25 MG TABLET PO SCH ×2 (09:00→20:52)
--- NOTE | 2017-02-28 09:00 | NUR ---
MS VIERA BREAKFAST SERVED,DUE MEDS GIVEN,TOLERATED WELL.
[2017-02-28] MEDS: ZINC SULFATE 220 MG CAPSULE PO SCH (09:19)
[2017-02-28] MEDS: LEVETIRACETAM SOL (5 ML) 100 MG/ML UDC GT SCH ×2 (09:19→20:51)
[2017-02-28] MEDS: BUMETANIDE (1 MG) 1 MG TABLET GT SCH (09:19)
[2017-02-28] MEDS: ACIDOPHILUS/BULGARICUS 1 EACH TAB.CHEW GT SCH ×2 (09:19→20:51)
[2017-02-28] MEDS: VIT B CMPLX 3/FA/VIT C/BIOTIN 1 TAB TABLET GT SCH (09:19)
[2017-02-28] MEDS: PROSOURCE / PROSTAT (PYXIS) 30 ML UDC GT SCH (09:20)
[2017-02-28] MEDS: MUPIROCIN OINT 2% 22 GM TUBE SCH ×2 (09:20→21:18)
[2017-02-28] MEDS: Z GUARD REMEDY 2 OZ OINT TP SCH (09:21)
[2017-02-28] MEDS: HYDROGEL DRESSING 90 GM TUBE TP SCH (09:21)
--- NOTE | 2017-02-28 09:30 | NUR ---
MS VIERA STARTED ON FEEDING, W/ LARGE LEAK COMING FROM G TUBE HOLE, DR. ARMAS AWARE, W/ ORDER TO START FEEDING AT 20ML/HR.
--- NOTE | 2017-02-28 12:00 | NUR ---
MS RN PATIENT IS TO BE DISCHARGE TODAY TO [facility], REPORT GIVEN TO RISSA VIERA. Addendum: 02/28/17 at 1905 by ROBIN TAPIA RN DISREGARD NOTES, WRONG PATIENT ENTRY.
[2017-02-28] MEDS: POTASSIUM CL. PREMIX PERIPHER. 50 ML IV SCH ×3 (13:06→18:23)
[2017-02-28] MEDS: MEROPENEM 500 MG in IV NS 0.9% 50 ML IV SCH (13:07)
[2017-02-28] MEDS: CALCITRIOL ORAL SOLUTION 1 MCG/ML GT SCH (13:09)
[2017-02-28] MEDS: RENAL NOVASOURCE 1,000 ML BOTTLE GT PRN (13:12)
--- NOTE | 2017-02-28 15:05 | NUR ---
MS RN CHANGED DRESSING AT G TUBE SITE,ALL NEEDS ATTENDED.
--- NOTE | 2017-02-28 15:40 | NUR ---
MS RN PATIENT TRANSFERRED TO [facility],NO DISTRESS NOTED, Precious/ LUIS DANIEL INTACT,ALL NEEDS ATTENDED.PATIENT REFUSED TO CHANGE DRESSING AT THIS TIME. Addendum: 02/28/17 at 1905 by ROBIN TAPIA RN DISREGARD NOTED, WRONG PATIENT ENTRY.
[2017-02-28 16:00] VITALS: BP 90/46
--- NOTE | 2017-02-28 17:55 | NUR ---
MS RN HD FINISHED, NO OUTPUT PER HD NURSE, DUE MEDS GIVEN, VANCOMYCIN IV WILL BE GIVEN AFTER K.LEVEL 19.
--- NOTE | 2017-02-28 19:08 | NUR ---
MS RN ON BED, NO DISTRESS NOTED, DAUGHTER AT BEDSIDE.
[2017-02-28 20:00] VITALS: BP 113/46
--- NOTE | 2017-02-28 21:00 | NUR ---
PT ON VENT, SUCTIONED WITH THICK YELLOWISH SECRETION, DAUGHTER AT BEDSIDE, NOTED GT SITE LEAKING FROM DRESSING , CLEAN AND DRESSING CHANGED.IV POTASSIUM INFUSING THE LAST BAG, IV INTACT.VSS,AFEBRILE, WILL CONTINUE TO MONITOR,A-FIB .
[2017-03-01] VITALS (8 sets, daily range): BP systolic 83–119; BP diastolic 38–76
[2017-03-01] MEDS: VANCOMYCIN HCL 125 MG/2.5 ML ORAL.SUSP PO SCH ×4 (01:29→18:21)
[2017-03-01] MEDS: METOCLOPRAMIDE HCL 10 MG/10 ML UDC GT SCH ×4 (01:29→18:21)
[2017-03-01] MEDS: ALBUTEROL FS 2.5 MG/0.5 ML VIAL.NEB NEB SCH ×4 (01:43→21:05)
[2017-03-01] MEDS: IPRATROPIUM NEB FS 0.5 MG/2.5 ML AMPUL.NEB NEB SCH ×4 (01:43→21:04)
[2017-03-01] MEDS: MEROPENEM 500 MG in IV NS 0.9% 50 ML IV SCH ×2 (02:00→13:22)
[2017-03-01] MEDS: MIDODRINE HCL (5MG) 5 MG TABLET PO SCH ×3 (06:00→21:03)
--- NOTE | 2017-03-01 06:00 | NUR ---
PT SLEPT WELL, TOLERATING GT FEEDING @ 50 CC , WITH 5 CC RESIDUAL. NEW IV SITE STARTED, AND CONTINUE WITH ANTIBIOTICS, GT SITE DRESSING INTACT. REPOSITIONED FOR COMFORT, ALL NEEDS ATTENDED,VSS, AFEBRILE.
[2017-03-01 07:02] LABS: BASOPHILS % (AUTO) 0.3 % (0.0-2.0); EOSINOPHILS # (AUTO) 0.2 /CMM (0.0-0.7); EOSINOPHILS % (AUTO) 1.7 % (0.0-6.0); HEMATOCRIT 26 % (33-45); HEMOGLOBIN 8.5 g/dL (11.5-14.8); LYMPHOCYTES # (AUTO) 1.4 /CMM (0.8-4.8); LYMPHOCYTES % (AUTO) 13.7 % (20.0-44.0); MEAN CORPUSCULAR HEMOGLOBIN 33 PG (26.0-33.0); MEAN CORPUSCULAR HGB CONC 33 g/dl (31.0-36.0); MEAN CORPUSCULAR VOLUME 98 fL (82-100); MONOCYTES # (AUTO) 0.7 /CMM (0.1-1.30); MONOCYTES % (AUTO) 6.6 % (2.0-12.0); NEUTROPHILS % (AUTO) 77.7 % (43.0-81.0); PLATELET COUNT (AUTO) 173 /CMM (150-450); RED BLOOD CELL COUNT(AUTO) 2.63 MIL/uL (4.0-5.2); WHITE BLOOD COUNT (AUTO) 10.3 K/uL (4.3-11.0)
[2017-03-01 07:20] LABS: CALCIUM, SERUM 8.3 mg/dL (8.5-10.1); CARBON DIOXIDE 28 mmol/L (21-32); CHLORIDE 102 mmol/L (98-107); CREATININE 1.5 mg/dL (0.6-1.3); GLUCOSE 87 mg/dL (74-106); POTASSIUM 3.7 mmol/L (3.5-5.1); SODIUM SERUM 138 mmol/L (136-145); UREA NITROGEN, BLOOD 44 mg/dL (7-18)
--- NOTE | 2017-03-01 07:30 | NUR ---
RN OPENING NOTES RECEIVED PATIENT IN BED, NON VERBAL, VENT DEPENDENT PATIENT. NO ACUTE DISTRESS, NO SOB NOTED. NO S/S OF PAIN OR DISCOMFORT, REPOSITIONED FOR COMFORT. FAMILY ON BEDSIDE. TELEMETRY AFIB HR 71. GTUBE IN PLACE. IV SITE INTACT AND PATENT. KEPT PATIENT SAFE AND COMFORTABLE. BED IN LOW POSITION, LOCKED, SIDERAILS UP X 2. CALL LIGHT IN REACH. WILL CONTINUE TO MONITOR ACCORDINGLY.
[2017-03-01] MEDS: METOPROLOL TARTRATE 25 MG TABLET PO SCH ×2 (09:00→21:00)
[2017-03-01] MEDS: RENAL NOVASOURCE 1,000 ML BOTTLE GT PRN (10:58)
[2017-03-01] MEDS: BUMETANIDE (1 MG) 1 MG TABLET GT SCH (10:59)
[2017-03-01] MEDS: ACIDOPHILUS/BULGARICUS 1 EACH TAB.CHEW GT SCH ×2 (10:59→21:03)
[2017-03-01] MEDS: VIT B CMPLX 3/FA/VIT C/BIOTIN 1 TAB TABLET GT SCH (11:00)
[2017-03-01] MEDS: ZINC SULFATE 220 MG CAPSULE PO SCH (11:00)
[2017-03-01] MEDS: LEVETIRACETAM SOL (5 ML) 100 MG/ML UDC GT SCH ×2 (11:02→21:04)
[2017-03-01] MEDS: PROSOURCE / PROSTAT (PYXIS) 30 ML UDC GT SCH (11:07)
[2017-03-01] MEDS: Z GUARD REMEDY 2 OZ OINT TP SCH (11:56)
[2017-03-01] MEDS: HYDROGEL DRESSING 90 GM TUBE TP SCH (11:56)
[2017-03-01] MEDS: CALCITRIOL ORAL SOLUTION 1 MCG/ML GT SCH (11:57)
[2017-03-01] MEDS: MUPIROCIN OINT 2% 22 GM TUBE SCH ×2 (11:58→21:05)
--- NOTE | 2017-03-01 19:10 | NUR ---
RN NOTES NO CHANGE OF PATIENT'S CONDITION. NO ACUTE DISTRESS, NO SOB. ALL NEEDS ATTENDED AND PROVIDED. KEPT PATIENT SAFE AND COMFORTABLE. BED IN LOCKED LOW POSITION, HOB ELEVATED, SIDERAILS UPX2, CALL LIGHT IN REACH. ENDORSED TO TOOL DESIGN DRAFTSPERSON RN FOR CONNOR.
[2017-03-01] MEDS ORDERED: IV NS 0.9% 500 ML BAG IV ONE (21:00)
--- NOTE | 2017-03-01 22:30 | NUR ---
PT AWAKE, C/O PAIN IN the abdomen, abdomen is soft feeding tolerating well without residual. low bp and md aware ,Dr. Costa order to give bolus of NS 500CC,infusing . will continue to monito a-fib, afebrile.
[2017-03-01] MEDS: ACETAMINOPHEN 325 MG TABLET PO PRN (22:41)
[2017-03-02] VITALS (8 sets, daily range): BP systolic 90–128; BP diastolic 42–51
[2017-03-02] MEDS: VANCOMYCIN HCL 125 MG/2.5 ML ORAL.SUSP PO SCH ×4 (00:02→18:53)
[2017-03-02] MEDS: METOCLOPRAMIDE HCL 10 MG/10 ML UDC GT SCH ×4 (00:02→18:53)
[2017-03-02] MEDS: ALBUTEROL FS 2.5 MG/0.5 ML VIAL.NEB NEB SCH ×4 (01:45→20:07)
[2017-03-02] MEDS: IPRATROPIUM NEB FS 0.5 MG/2.5 ML AMPUL.NEB NEB SCH ×4 (01:45→20:07)
[2017-03-02] MEDS: MEROPENEM 500 MG in IV NS 0.9% 50 ML IV SCH ×2 (03:14→14:44)
[2017-03-02] MEDS: MIDODRINE HCL (5MG) 5 MG TABLET PO SCH ×3 (05:38→21:23)
--- NOTE | 2017-03-02 06:30 | NUR ---
pt slept well overnight after tylenol given, feeding stop @ 0200 to complete 18 hrs of feeding time.dressing changed and gt still leaks.repositioned for comfort,bm x1, a-fib on monitor, bp responded to bolus, denies any pain at this time.afebrile.will continue to monitor.
[2017-03-02 06:46] LABS: CALCIUM, SERUM 8.5 mg/dL (8.5-10.1); CARBON DIOXIDE 30 mmol/L (21-32); CHLORIDE 103 mmol/L (98-107); CREATININE 1.7 mg/dL (0.6-1.3); GLUCOSE 95 mg/dL (74-106); POTASSIUM 3.6 mmol/L (3.5-5.1); SODIUM SERUM 140 mmol/L (136-145); UREA NITROGEN, BLOOD 53 mg/dL (7-18)
--- NOTE | 2017-03-02 07:10 | NUR ---
SAP BW BI DEVELOPER OPENING NOTE [id number] REPORT ON THE PATIENT. PATIENT IS ASLEEP IN BED. BED IS LOCKED, IN LOWEST POSITION, SIDE RAILS UP X 3, BED ALARM ION. HIGH FOWLERS POSITION. NO RESPIRATORY/CARDIAC DISTRESS NOTED AT THIS TIME. TRACH SECURE IS IN AND PROPER POSITION. SUCTION EQUIPMENT AT THE BEDSIDE. AMBU BAG AT [facility], ON [facility] VENT WITH SETTINGS PRESCRIBED. VENT PLUGGED INTO RED OUTLET. NOVASOURCE AT ORDERED RATE. SAFE HAZARD FREE ENVIRONMENT PROVIDED. CALL LIGHT WITHIN REACH. VS WNL. AFEBRILE. CURRENT MONITOR READING CONTROLLED A FIB WITH HR 78. WILL CONTINUE TO MONITOR.
[2017-03-02] MEDS: METOPROLOL TARTRATE 25 MG TABLET PO SCH ×2 (09:00→21:00)
[2017-03-02] MEDS: LEVETIRACETAM SOL (5 ML) 100 MG/ML UDC GT SCH ×2 (09:35→21:19)
[2017-03-02] MEDS: ACIDOPHILUS/BULGARICUS 1 EACH TAB.CHEW GT SCH ×2 (09:35→21:20)
[2017-03-02] MEDS: VIT B CMPLX 3/FA/VIT C/BIOTIN 1 TAB TABLET GT SCH (09:36)
[2017-03-02] MEDS: BUMETANIDE (1 MG) 1 MG TABLET GT SCH (09:36)
[2017-03-02] MEDS: CALCITRIOL ORAL SOLUTION 1 MCG/ML GT SCH (09:36)
[2017-03-02] MEDS: ZINC SULFATE 220 MG CAPSULE PO SCH (09:36)
[2017-03-02] MEDS: HYDROGEL DRESSING 90 GM TUBE TP SCH (09:37)
[2017-03-02] MEDS: Z GUARD REMEDY 2 OZ OINT TP SCH (09:38)
[2017-03-02] MEDS: RENAL NOVASOURCE 1,000 ML BOTTLE GT PRN (10:05)
[2017-03-02] MEDS: MUPIROCIN OINT 2% 22 GM TUBE SCH ×2 (10:27→21:21)
[2017-03-02] MEDS: PROSOURCE / PROSTAT (PYXIS) 30 ML UDC GT SCH (10:34)
--- NOTE | 2017-03-02 12:10 | NUR ---
COMMUNITY ORGANIZER NOTE DR ARMAS AT THE BEDSIDE.
--- NOTE | 2017-03-02 12:30 | NUR ---
IRRIGATIONIST NOTE DIALYSIS STARTED AT THE BEDSIDE.
--- NOTE | 2017-03-02 14:15 | NUR ---
TELE TRN NOTE HD COMPLETE. HD RN AT THE BEDSIDE. PATIENT'S HE AFIB HR 145. CALLING MD TO NOTIFY.
--- NOTE | 2017-03-02 14:15 | NUR ---
SCRIPT WRITER NOTE 1000ML FLUID REMOVED IN HD.
--- NOTE | 2017-03-02 14:30 | NUR ---
RN ACUTE NOTE CALLED DR Tommie MOYA AND LEFT A MESSAGE. WAITING FOR A CALL BACK. PATIENT'S CURRENT CARDIAC READING A FIB HR 144
--- NOTE | 2017-03-02 14:37 | NUR ---
RADIAL DRILL PRESS SET UP OPERATOR NOTE SPOKE TO DR. David MOYA ON THE PHONE. PER DR ORDER GIVE PATIENT 250CC 0.9 % SODIUM CHLORIDE AND CONTINUE OBSERVING THE PATIENT. REPORT BACK TO MD IF NO IMPROVEMENT OCCURS IN 1 HR.
[2017-03-02] MEDS ORDERED: IV NS 0.9% 250 ML BAG IV ONE (15:00)
[2017-03-02] MEDS ORDERED: IV NS 0.9% 250 ML IV ONE (15:00)
--- NOTE | 2017-03-02 15:11 | NUR ---
TAPE DECK INSTALLER NOTE PATIENT'S HR 156. BP 143/27; ORAL TEMPERATURE 98.4 F. WILL CONTINUE TO MONITOR
[2017-03-02] MEDS: ACETAMINOPHEN 325 MG TABLET PO PRN (16:13)
--- NOTE | 2017-03-02 16:28 | NUR ---
CRIMPING MACHINE OPERATOR NOTE COOLING MEASURES APPLIED. PATIENT HAS HAD AN EPISODE OF EMESIS. SN TURNED PT ON THE SIDE AND SUCTIONED THE MOUTH. JANESSA, THE CHARGE NURSE CALLED THE DR TO REPORT PATIENT'S CONDITION. . AWAITING FOR NEW ORDERS FROM THE MD.
[2017-03-02] MEDS ORDERED: DIGOXIN INJ 0.5 MG/2 ML AMPUL IV ONE (16:30)
[2017-03-02] MEDS ORDERED: METOPROLOL TARTRATE 25 MG TABLET GT ONE (16:30)
--- NOTE | 2017-03-02 16:30 | NUR ---
PRICK STITCHER NOTE BETA PRIYANK HELD D/T DECREASED BP OF 100/48. TACHYCARDIA CONTROLLED BY DIGOXIN.
--- NOTE | 2017-03-02 16:30 | NUR ---
SPOCK WITH DR MOYA REGARDING TACHYCARDIA, PER MD HE WILL ORDER SOME MEDS AND TO CHECK HER CHART FOR ORDER, PT NOTED WITH FEVER, TYLENOL GIVEN, WILL MONITOR.
--- NOTE | 2017-03-02 19:14 | NUR ---
BOX OFFICE AGENT CLOSING NOTE PATIENT IS ASLEEP IN BED. BED IS LOCKED, IN LOWEST POSITION, SIDE RAILS UP X 3, BED ALARM ION. FOWLERS POSITION. HOB ELEVATED AT ALL TIMES.PATIENT'S SON AT THE BEDSIDE. PATIENT REPOSITIONED EVERY TWO HOURS FOR ULTIMATE LIMB ALIGNMENT. HOURLY ROUNDS CONDUCTED. NO RESPIRATORY/CARDIAC DISTRESS NOTED AT THIS TIME. TRACH SECURE IS IN AND PROPER POSITION. AMBU BAG AT [facility], ON [facility] VENT WITH SETTINGS PRESCRIBED. VENT PLUGGED INTO RED OUTLET. NOVASOURCE AT ORDERED RATE. SAFE HAZARD FREE ENVIRONMENT PROVIDED. CALL LIGHT WITHIN REACH.. CURRENT MONITOR READING CONTROLLED A FIB WITH HR 115. WILL ENDORSE TO THE NEXT SHIFT FOR CONNOR.
--- NOTE | 2017-03-02 19:30 | NUR ---
TELE/COMPLIANCE REVIEWER; RECEIVED PT IN BED WITH EYES OPEN NON VERBAL. PT ON TRACH / VENT. GT FEEDING ON PROGRESS. BED ON LOWER POSITION AND LOCKED FOR SAFETY. SIDE RAILS ARE UP FOR SAFETY . SON VISITED AND AT THE BEDSIDE. ON CONTACT ISOLATION OBSERVED. ON TELEMETRY. WILL CONTINUE TO MONITOR.
[2017-03-03] VITALS: BP 86/44
[2017-03-03] MEDS: METOCLOPRAMIDE HCL 10 MG/10 ML UDC GT SCH ×5 (00:05→23:56)
[2017-03-03] MEDS: VANCOMYCIN HCL 125 MG/2.5 ML ORAL.SUSP PO SCH ×5 (00:06→23:56)
[2017-03-03] MEDS: ALBUTEROL FS 2.5 MG/0.5 ML VIAL.NEB NEB SCH ×4 (01:38→20:19)
[2017-03-03] MEDS: IPRATROPIUM NEB FS 0.5 MG/2.5 ML AMPUL.NEB NEB SCH ×4 (01:38→20:19)
[2017-03-03] MEDS: MEROPENEM 500 MG in IV NS 0.9% 50 ML IV SCH ×2 (02:08→14:55)
[2017-03-03] MEDS: RENAL NOVASOURCE 1,000 ML BOTTLE GT PRN (02:40)
[2017-03-03 02:50] VITALS: BP 97/51
[2017-03-03 04:00] VITALS: BP 91/50
[2017-03-03] MEDS: MIDODRINE HCL (5MG) 5 MG TABLET PO SCH ×3 (05:07→22:11)
--- NOTE | 2017-03-03 06:36 | NUR ---
TELE/UNIVERSAL GRINDER TOOL; SLEPT FAIRLY. TRACH / VENT INTACT. SUCTIONED VIA TRACH. WITH SOME WHITISH SECRETIONS. GT FEEDING ON PROGRESS. NO RESIDUAL. AM CARE DONE BY THE PRODUCTION SKI REPAIRER. TURNED AND REPOSITIONED. CONTINUE TO MONITOR. WILL ENDORSE TO THE DAY SHIFT NURSE.
[2017-03-03 07:21] LABS: CALCIUM, SERUM 8.3 mg/dL (8.5-10.1); CARBON DIOXIDE 30 mmol/L (21-32); CHLORIDE 104 mmol/L (98-107); CREATININE 1.6 mg/dL (0.6-1.3); GLUCOSE 132 mg/dL (74-106); POTASSIUM 3.4 mmol/L (3.5-5.1); SODIUM SERUM 140 mmol/L (136-145); UREA NITROGEN, BLOOD 42 mg/dL (7-18)
--- NOTE | 2017-03-03 07:30 | NUR ---
RN NOTES PATIENT IN BED. ALERT AND ORIENTED X1. NO C/O PAIN. B/P 84/42. DR ARMAS AWARE. ACCESS PATENT AND INTACT. NO RESPIRATORY DISTRESS NOTED. ON VENT SETTINGS. TRACH SECURE IN PROPER PLACEMENT AND POSITION. GTUBE NOVASOURCE INFUSING 50 ML/HR. BED IN LOW POSITION. SIDE RAILS X2. CALL LIGHT WITHIN EASY REACH. CONTINUE TO MONITOR.
[2017-03-03 08:00] VITALS: BP 84/72
[2017-03-03] MEDS: METOPROLOL TARTRATE 25 MG TABLET PO SCH ×2 (09:00→21:00)
[2017-03-03] MEDS: BUMETANIDE (1 MG) 1 MG TABLET GT SCH ×2 (09:00→09:38)
[2017-03-03] MEDS: ACIDOPHILUS/BULGARICUS 1 EACH TAB.CHEW GT SCH ×2 (09:38→22:08)
[2017-03-03] MEDS: ZINC SULFATE 220 MG CAPSULE PO SCH (09:38)
[2017-03-03] MEDS: VIT B CMPLX 3/FA/VIT C/BIOTIN 1 TAB TABLET GT SCH (09:38)
[2017-03-03] MEDS: PROSOURCE / PROSTAT (PYXIS) 30 ML UDC GT SCH (09:39)
[2017-03-03] MEDS: LEVETIRACETAM SOL (5 ML) 100 MG/ML UDC GT SCH ×2 (09:39→22:07)
[2017-03-03] MEDS: CALCITRIOL ORAL SOLUTION 1 MCG/ML GT SCH (09:39)
[2017-03-03] MEDS: MUPIROCIN OINT 2% 22 GM TUBE SCH ×2 (09:39→22:09)
[2017-03-03] MEDS: HYDROGEL DRESSING 90 GM TUBE TP SCH (09:40)
--- NOTE | 2017-03-03 10:00 | NUR ---
RN NOTES NOTED GTUBE CONTINUOS LEAKAGE. PRESSURE APPLIED. SKIN CLEANED AND DRIED. CALLED DR ARMAS REGARDING THE LEAKAGE. PER DR ARMAS PLEASE CONTACT DR NEWELL. CONTINUE TO MONITOR.
--- NOTE | 2017-03-03 11:30 | NUR ---
RN NOTES CALLED DR NEWELL PER DUE TO LARGE AMOUNTS OF LEAKAGE FROM GTUBE SITE X2 WILL AWAIT CALL BACK ORDERED
[2017-03-03] MEDS: POTASSIUM CL. PREMIX PERIPHER. 50 ML IV SCH ×2 (12:59→17:09)
[2017-03-03] MEDS: Z GUARD REMEDY 2 OZ OINT TP SCH (13:59)
[2017-03-03] MEDS ORDERED: POTASSIUM CL. PREMIX PERIPHER. 50 ML IV SCH (14:00)
--- NOTE | 2017-03-03 14:00 | NUR ---
RN NOTES CALLED DR NEWELL PER DUE TO LARGE AMOUNTS OF LEAKAGE FROM GTUBE SITE X2 WILL AWAIT CALL BACK ORDERED
--- NOTE | 2017-03-03 14:00 | NUR ---
RN NOTES ONLY 2O MEQ OF POTASSIUM TO BE GIVEN IN TOTAL, PER MD, PHARMACY MADE AWARE, CONTINUE TO MONITOR AT THIS TIME
[2017-03-03 16:00] VITALS: BP 96/58
--- NOTE | 2017-03-03 18:00 | NUR ---
RN NOTES CALLED DR. ARMAS UNABLE TO GET CALL BACK FROM DR. NEWELL PER OKAY TO CONTINUE TO ATTEMPT TOMORROW DR NEWELL IS THE ONE THAT REPLACED GT RECENTLY OKAY TO HOLD GTF AT THIS TIME AND GAVE ORDER FOR IVF NS AT 40ML/HR WILL CONTINUE TO MONITOR
--- NOTE | 2017-03-03 19:15 | NUR ---
RN CLOSING NOTES PATIENT IN BED SLEEPING. ALERT AND ORIENTED X1. SON AT BEDSIDE. NO C/O PAIN AT THIS TIME. NO RESPIRATORY DISTRESS NOTED. IV ACCESS PATENT AND INTACT. ALL MEDICATIONS GIVEN PER MD ORDER. TRACH IN PROPER AND SECURE PLACE. CONTINUE TO MONITOR FOR GTUBE LEAKAGE. MD AWARE. BED IN LOW POSITION. SIDE RAILS X2. CALL LIGHT WITHIN EASY REACH. WILL ENDORSE TO QUILL CLEANERPATIENT REGISTRAR FOR CONTINUITY OF CARE.
--- NOTE | 2017-03-03 19:45 | NUR ---
TELE/HEAD OF MERCHANDISE BUYING; RECEIVED PT IN BED SLEEPING. WITH TRACH / VENT INTACT. NOT IN DISTRESS. GT CLAMPED BY THE DAY SHIFT NURSE AND FEEDING ON HOLD PER MD DUE TO LEAKING. HL ON RFA INTACT AND PATENT. PER DAY SHIFT REPORT MD ORDERED IVF AND TO BE STARTED. ABDOMEN STILL DISTENDED. ON TELEMETRY. ON CONTACT ISOLATION OBSERVED. BED ON LOWER POSITION AND LOCKED FOR SAFETY. SIDE RAILS ARE UP FOR SAFETY AND ALSO PADDED. WILL CONTINUE TO MONITOR.
[2017-03-03 20:00] VITALS: BP 94/48
[2017-03-03] MEDS: IV NS 0.9% 1,000 ML IV PRN (20:15)
[2017-03-04] VITALS: BP 89/46
[2017-03-04] MEDS: IPRATROPIUM NEB FS 0.5 MG/2.5 ML AMPUL.NEB NEB SCH ×4 (01:54→20:04)
[2017-03-04] MEDS: ALBUTEROL FS 2.5 MG/0.5 ML VIAL.NEB NEB SCH ×4 (01:54→20:04)
[2017-03-04] MEDS: MEROPENEM 500 MG in IV NS 0.9% 50 ML IV SCH ×2 (01:58→14:40)
--- NOTE | 2017-03-04 02:00 | NUR ---
TELE/DOUGH BRAKE MACHINE OPERATOR; PT SLEEPING AT THIS TIME. NOT IN DISTRESS. IVF ON PROGRESS. TRACH / VENT INTACT.
[2017-03-04 04:00] VITALS: BP 101/47
[2017-03-04] MEDS: MIDODRINE HCL (5MG) 5 MG TABLET PO SCH ×3 (04:52→20:58)
[2017-03-04] MEDS: METOCLOPRAMIDE HCL 10 MG/10 ML UDC GT SCH ×4 (05:47→23:40)
[2017-03-04] MEDS: VANCOMYCIN HCL 125 MG/2.5 ML ORAL.SUSP PO SCH ×4 (05:48→23:40)
--- NOTE | 2017-03-04 06:43 | NUR ---
TELE/ STATEMENT PROCESSOR; PT ON A- FIB 73. GT SITE STILL LEAKING KEPT CLEAN AND MEPILEX APPLIED. GT STILL CLAMPED AND NO FEEDING. AM CARE DONE BY THE COOK CHILL TECHNICIAN . TURNED AND REPOSITIONED. IVF ON PROGRESS. SLEPT FAIRLY LAST NIGHT. WILL ENDORSE TO THE DAY SHIFT NURSE.
--- NOTE | 2017-03-04 06:53 | NUR ---
TELE/BAG BUNDLER; SACRAL DRESSING CHANGED. GT SIT MEPILEX APPLIED.
[2017-03-04 07:11] VITALS: BP 90/50
[2017-03-04 07:19] LABS: BASOPHILS % (AUTO) 0.4 % (0.0-2.0); EOSINOPHILS # (AUTO) 0.3 /CMM (0.0-0.7); EOSINOPHILS % (AUTO) 3.1 % (0.0-6.0); HEMATOCRIT 23 % (33-45); HEMOGLOBIN 7.4 g/dL (11.5-14.8); LYMPHOCYTES # (AUTO) 1.4 /CMM (0.8-4.8); MEAN CORPUSCULAR HEMOGLOBIN 32 PG (26.0-33.0); MEAN CORPUSCULAR HGB CONC 32 g/dl (31.0-36.0); MEAN CORPUSCULAR VOLUME 98 fL (82-100); MONOCYTES # (AUTO) 0.5 /CMM (0.1-1.30); NEUTROPHILS # (AUTO) 8.2 /CMM (1.8-8.9); NEUTROPHILS % (AUTO) 78.5 % (43.0-81.0); PLATELET COUNT (AUTO) 187 /CMM (150-450); RED BLOOD CELL COUNT(AUTO) 2.34 MIL/uL (4.0-5.2); WHITE BLOOD COUNT (AUTO) 10.4 K/uL (4.3-11.0)
[2017-03-04 07:37] LABS: CALCIUM, SERUM 8.1 mg/dL (8.5-10.1); CARBON DIOXIDE 28 mmol/L (21-32); CHLORIDE 104 mmol/L (98-107); CREATININE 1.8 mg/dL (0.6-1.3); GLUCOSE 86 mg/dL (74-106); MAGNESIUM 2.1 mg/dL (1.8-2.4); PHOSPHORUS 3.1 mg/dL (2.5-4.9); POTASSIUM 3.6 mmol/L (3.5-5.1); SODIUM SERUM 139 mmol/L (136-145); UREA NITROGEN, BLOOD 50 mg/dL (7-18)
[2017-03-04] MEDS: METOPROLOL TARTRATE 25 MG TABLET PO SCH ×2 (09:00→20:58)
[2017-03-04] MEDS: VIT B CMPLX 3/FA/VIT C/BIOTIN 1 TAB TABLET GT SCH (09:33)
[2017-03-04] MEDS: ACIDOPHILUS/BULGARICUS 1 EACH TAB.CHEW GT SCH ×2 (09:33→20:57)
[2017-03-04] MEDS: CALCITRIOL ORAL SOLUTION 1 MCG/ML GT SCH (09:33)
[2017-03-04] MEDS: LEVETIRACETAM SOL (5 ML) 100 MG/ML UDC GT SCH ×2 (09:33→20:57)
[2017-03-04] MEDS: BUMETANIDE (1 MG) 1 MG TABLET GT SCH (09:33)
[2017-03-04] MEDS: ZINC SULFATE 220 MG CAPSULE PO SCH (09:33)
[2017-03-04] MEDS: PROSOURCE / PROSTAT (PYXIS) 30 ML UDC GT SCH (09:33)
[2017-03-04] MEDS: Z GUARD REMEDY 2 OZ OINT TP SCH (09:34)
[2017-03-04] MEDS: HYDROGEL DRESSING 90 GM TUBE TP SCH (09:34)
[2017-03-04] MEDS: MUPIROCIN OINT 2% 22 GM TUBE SCH ×2 (09:35→20:57)
[2017-03-04] MEDS ORDERED: EPOETIN ALFA (10,000 UNIT) 10,000 UNIT/ML VIAL IV ONE (10:30)
[2017-03-04 12:00] VITALS: BP 92/46
[2017-03-04] MEDS: ALBUMIN 25% 25 GM in PREMIX 1 EA IV PRN (13:12)
[2017-03-04 16:00] VITALS: BP 100/44
--- NOTE | 2017-03-04 17:23 | NUR ---
DISHTANK OPERATOR NOTES PT WAS ENDORSED TO IVANA VIERA. PT IS STABLE POST DIALYSIS. BEDSIDE RAILS ARE UP X2. BED IS LOCKED AND LOWERED.
--- NOTE | 2017-03-04 17:24 | NUR ---
RN NOTES RECEIVED PATIENT IN BED, NON VERBAL, VENT DEPENDENT PATIENT. NO ACUTE DISTRESS, NO SOB NOTED. NO S/S OF PAIN OR DISCOMFORT, REPOSITIONED FOR COMFORT. GTUBE IN PLACE. IV SITE INTACT AND PATENT. KEPT PATIENT SAFE AND COMFORTABLE. BED IN LOW POSITION, LOCKED, SIDERAILS UP X 2. CALL LIGHT IN REACH. WILL CONTINUE TO MONITOR ACCORDINGLY.
--- NOTE | 2017-03-04 19:00 | NUR ---
RN CLOSING NOTES NO CHANGES IN PATIENT'S CONDITION. NO ACUTE DISTRESS, NO SOB NOTED. ALL NEEDS ATTENDED AND PROVIDED. KEPT PATIENT SAFE AND COMFORTABLE. BED LOCKED, LOW POSITION, SIDERAILS UP X2. CALL LIGHT IN REACH. ENDORSED TO NIGHT RN FOR CONNOR.
--- NOTE | 2017-03-04 19:25 | NUR ---
TELE/RN NOTES RECEIVED PT. LYING IN BED RESTING. PT. IS EASILY AROUSABLE TO NAME AND TOUCH. PT. IS AWAKE, ALERT AND ORIENTED TO SELF. BREATHING EVEN AND UNLABORED. NO SOB, RESPIRATORY DISTRESS OR S/S OF PAIN NOTED AT THIS TIME. PT. IS VENT/TRACH DEPENDENT. PT. WITH PORTEX #8 TRACH PRESENT AND INTACT. CURRENT VENT SETTINGS: AC 14, TV 500, FIO2 40%, PEEP 5. PT. WITH EXTERNAL IDENTIFICATION CLERK PRESENT AND INTACT. CURRENT RHYTHM = AFIB HR 73. PT. WITH RIGHT FOREARM 22 GAUGE PERIPHERAL IV PRESENT, PATENT AND INTACT ADMINISTERING TO PT. NS @ 40 ML/HR. PT. WITH G-TUBE PRESENT AND INTACT. G-TUBE IF CLAMPED AND TUBE FEEDING HELD AT THIS TIME. PER DAYSHIFT NURSE PT. G-TUBE IS LEAKING MD AWARE, PER MD HOLD TUBE FEEDING AND AWAITING GI CONSULT. ASSESSED PT. G-TUBE SITE. G-TUBE SITE HAS SCANT AMOUNT OF SERO-SANGUINOUS DRAINAGE. CLEANSED WITH NS, PAT DRY AND CHANGED MEPILEX DRESSING. WILL CONTINUE TO MONITOR G-TUBE SITE. BED LOCKED AND IN LOWEST POSITION, SIDE RAILS UP X3, WILL CONTINUE TO MONITOR.
--- NOTE | 2017-03-04 19:40 | NUR ---
TELE/RN NOTES DR. YOON AT PT. BEDSIDE. PER DR. YOON SURGICAL CONSULT IS NEEDED AND CONTINUE TO HOLD G-TUBE FEEDING AT THIS TIME. DR. YOON STATED HE WOULD CONTACT THE DRRajni FOR SURGICAL CONSULT. WILL CONTINUE TO MONITOR.
[2017-03-04 20:00] VITALS: BP 107/43
[2017-03-04] MEDS: IV NS 0.9% 1,000 ML IV PRN (21:07)
[2017-03-05] VITALS: BP 96/47
[2017-03-05] MEDS: IPRATROPIUM NEB FS 0.5 MG/2.5 ML AMPUL.NEB NEB SCH ×4 (01:49→19:43)
[2017-03-05] MEDS: ALBUTEROL FS 2.5 MG/0.5 ML VIAL.NEB NEB SCH ×4 (01:49→19:43)
[2017-03-05] MEDS: MEROPENEM 500 MG in IV NS 0.9% 50 ML IV SCH ×2 (01:51→14:03)
[2017-03-05] MEDS ORDERED: MEROPENEM 500 MG VIAL IV ONE (02:02)
--- NOTE | 2017-03-05 02:04 | NUR ---
TELE/RN NOTES MERREM IV MEDICATION HAD TO BE OVERRIDEN BY CHARGE NURSE. MERREM IV MEDICATION FROM PHARMACY BAG WAS LEAKING. ADMINISTERED MERREM 500MG IVPB @ 100ML/HR TO PT. WILL CONTINUE TO MONITOR.
[2017-03-05 04:00] VITALS: BP 110/58
[2017-03-05] MEDS: VANCOMYCIN HCL 125 MG/2.5 ML ORAL.SUSP PO SCH ×3 (05:38→18:38)
[2017-03-05] MEDS: METOCLOPRAMIDE HCL 10 MG/10 ML UDC GT SCH ×3 (05:38→18:38)
[2017-03-05] MEDS: MIDODRINE HCL (5MG) 5 MG TABLET PO SCH ×3 (05:39→21:10)
--- NOTE | 2017-03-05 07:30 | NUR ---
received pt. alert and oriented x1.non-verbal,mouths words.on isolation.vs stable bp low.
--- NOTE | 2017-03-05 07:40 | NUR ---
vent settings unchanged.
[2017-03-05 08:00] VITALS: BP 94/54
[2017-03-05 08:13] LABS: CALCIUM, SERUM 8.4 mg/dL (8.5-10.1); CARBON DIOXIDE 32 mmol/L (21-32); CHLORIDE 104 mmol/L (98-107); CREATININE 1.4 mg/dL (0.6-1.3); GLUCOSE 72 mg/dL (74-106); POTASSIUM 3.7 mmol/L (3.5-5.1); SODIUM SERUM 140 mmol/L (136-145); UREA NITROGEN, BLOOD 30 mg/dL (7-18)
[2017-03-05] MEDS: METOPROLOL TARTRATE 25 MG TABLET PO SCH ×2 (09:00→21:00)
[2017-03-05] MEDS: BUMETANIDE (1 MG) 1 MG TABLET GT SCH ×2 (09:00→18:38)
[2017-03-05] MEDS: ACIDOPHILUS/BULGARICUS 1 EACH TAB.CHEW GT SCH ×2 (10:48→21:09)
[2017-03-05] MEDS: ZINC SULFATE 220 MG CAPSULE PO SCH (10:48)
[2017-03-05] MEDS: PROSOURCE / PROSTAT (PYXIS) 30 ML UDC GT SCH (10:48)
[2017-03-05] MEDS: CALCITRIOL ORAL SOLUTION 1 MCG/ML GT SCH (10:48)
[2017-03-05] MEDS: VIT B CMPLX 3/FA/VIT C/BIOTIN 1 TAB TABLET GT SCH (10:48)
[2017-03-05] MEDS: LEVETIRACETAM SOL (5 ML) 100 MG/ML UDC GT SCH ×2 (10:48→21:10)
[2017-03-05] MEDS: MUPIROCIN OINT 2% 22 GM TUBE SCH ×2 (10:50→21:10)
[2017-03-05] MEDS: HYDROGEL DRESSING 90 GM TUBE TP SCH (10:50)
[2017-03-05] MEDS: Z GUARD REMEDY 2 OZ OINT TP SCH (10:51)
[2017-03-05 12:00] VITALS: BP 127/87
--- NOTE | 2017-03-05 14:30 | NUR ---
son in to visit.leaking fluid around g-tube site and ascites fluid as well.vs stable.
[2017-03-05] MEDS: ACETAMINOPHEN 325 MG TABLET PO PRN ×2 (15:50→22:00)
[2017-03-05 16:00] VITALS: BP 108/52
--- NOTE | 2017-03-05 16:01 | NUR ---
MEDICATED FOR ABD. DISCOMFORT WITH TYLENOL 650 MG PO.
--- NOTE | 2017-03-05 17:30 | NUR ---
carlos almaraz peleg and dr. lopes in to see pt.
--- NOTE | 2017-03-05 18:30 | NUR ---
am bumex given now as bp low in am.cont. to leak ascites fluid from abd.g-tube site reddened.iv infiltrated and removed. to endorse to dre. shift.
[2017-03-05 20:00] VITALS: BP 96/53
--- NOTE | 2017-03-05 20:00 | NUR ---
CRAYON SORTING MACHINE FEEDER NOTES PT REFUSED TO HAVE F/C AT THIS TIME. SON AT BEDSIDE. EXPLAINED TO HER MOM RE F/C INSERTION BUT PT STILL REFUSED.
--- NOTE | 2017-03-05 22:00 | NUR ---
MS RN NOTES PT C/O ABD PAIN 10/06. TYLENOL GIVEN ORDERED. WILL CONTINUE TO MONITOR
[2017-03-06] VITALS (7 sets, daily range): BP systolic 75–106; BP diastolic 38–56
[2017-03-06] MEDS: METOCLOPRAMIDE HCL 10 MG/10 ML UDC GT SCH ×5 (00:44→23:47)
[2017-03-06] MEDS: VANCOMYCIN HCL 125 MG/2.5 ML ORAL.SUSP PO SCH ×5 (00:44→23:48)
[2017-03-06] MEDS: ALBUTEROL FS 2.5 MG/0.5 ML VIAL.NEB NEB SCH ×4 (01:41→19:51)
[2017-03-06] MEDS: IPRATROPIUM NEB FS 0.5 MG/2.5 ML AMPUL.NEB NEB SCH ×4 (01:41→19:51)
[2017-03-06] MEDS: MEROPENEM 500 MG in IV NS 0.9% 50 ML IV SCH ×2 (02:07→14:10)
[2017-03-06] MEDS: MIDODRINE HCL (5MG) 5 MG TABLET PO SCH ×3 (05:20→20:38)
[2017-03-06] MEDS: ACETAMINOPHEN 325 MG TABLET PO PRN ×3 (05:21→18:26)
--- NOTE | 2017-03-06 06:53 | NUR ---
BREAKFAST HOSTESS NOTES AWAKE & ALERT. WITH SAME VENT SETTINGS. NOT IN ANY DISTRESS. NO SOB NOTED. DENIES ANY PAIN OR DISCOMFORT AT THIS TIME. ON TELE AFIB @ 74 WITH IVF INFUSING WELL. AM CARE DONE. MONITORED ACCORDINGLY. CALL LIGHT WITHIN REACH. BED IN LOWEST POSITION. SR UP X3 WITH BED ALARM ON FOR SAFETY. WILL ENDORSE TO NEXT SHIFT.
--- NOTE | 2017-03-06 07:20 | NUR ---
MOTOR COACH TOUR OPERATOR NOTES RECEIVED PATIENT AWAKE, A/O X1. ABLE TO MOUTH WORDS. ON TELE MONITOR AFIB CONTROLLED HR 75, ON VENT. PATIENT IS NPO STATUS, GTUBE FEEDING HELD PER REPORT. GTUBE SITE STOMA LEAKING WITH DARK BROWN AND REDDISH FLUID DRAINAGE FROM THE COLOSTOMY BAG. CARY CATH TO BE INSERTED ORDERED. CALL LIGHT WITHIN REACH. WILL CONT TO MONITOR.
[2017-03-06] MEDS: IV NS 0.9% 1,000 ML IV PRN (07:22)
--- NOTE | 2017-03-06 08:43 | NUR ---
DIALYSIS TREATMENT STOPPED, INCREASING HR 154, PER AMET/DIALYSIS NURSE INFORMED DR. MELÉNDEZ, DIALYSIS TREATMENT WAS STOPPED. WILL CONT TO MONITOR PATIENT.
[2017-03-06] MEDS: BUMETANIDE (1 MG) 1 MG TABLET GT SCH (08:59)
[2017-03-06] MEDS: VIT B CMPLX 3/FA/VIT C/BIOTIN 1 TAB TABLET GT SCH (08:59)
[2017-03-06] MEDS: ACIDOPHILUS/BULGARICUS 1 EACH TAB.CHEW GT SCH ×2 (08:59→20:38)
[2017-03-06] MEDS: ZINC SULFATE 220 MG CAPSULE PO SCH (08:59)
[2017-03-06] MEDS: LEVETIRACETAM SOL (5 ML) 100 MG/ML UDC GT SCH ×2 (09:00→20:38)
[2017-03-06] MEDS: METOPROLOL TARTRATE 25 MG TABLET PO SCH ×2 (09:01→20:38)
[2017-03-06] MEDS: PROSOURCE / PROSTAT (PYXIS) 30 ML UDC GT SCH (09:05)
[2017-03-06] MEDS: MUPIROCIN OINT 2% 22 GM TUBE SCH ×2 (09:12→20:42)
[2017-03-06] MEDS: Z GUARD REMEDY 2 OZ OINT TP SCH (09:20)
[2017-03-06] MEDS: HYDROGEL DRESSING 90 GM TUBE TP SCH (09:20)
[2017-03-06] MEDS: CALCITRIOL ORAL SOLUTION 1 MCG/ML GT SCH (10:04)
[2017-03-06 12:47] LABS: INR 1.23 (0.87-1.13); PROTHROMBIN TIME 12.8 SECS (9.5-12.7)
--- NOTE | 2017-03-06 18:30 | NUR ---
PATIENT C/O ABDOMINAL PAIN, TEMP 99. COOLING MEASURES PROVIDED. TYLENOL 650MG VIA GT PRN GIVEN.
--- NOTE | 2017-03-06 19:16 | NUR ---
TELECOMMUNICATIONS OFFICER NOTES PATIENT IN BED, A/O X1. ON TELE MONITOR AFIB CONTROLLED HR 96. VENT SETTINGS REMAIN THE SAME, TRACH IN PLACE, SUCTION PRN. GTUBE SITE STILL LEAKING WITH LARGE AMOUNT OF DARK BROWN FLUID DRAINAGE. CARY CATH FR 16 INSERTED ORDERED, URINE DARK YELLOW. DRESSING CHANGED IN SACRAL WOUND, TURN AND REPOSITION PATIENT Q 2HR. LABS IN AM ORDERED. ENDORSED TO MIRROR SILVERER RN FOR CONTINUITY OF CARE.
--- NOTE | 2017-03-06 19:30 | NUR ---
VENEER STOCK LAYER NOTE RECEIVED PATIENT FROM DAY SHIFT, PATIENT IS ALERT AND ORIENTEDX1, MOUTH WORDING IN AFGHAN, ON VENT DEPENDENT. CARY CATH PRESENT WITH FLETCHER URINE, IV ON RIGHT HAND IS PATENT AND INTACT, NS IS RUNNING. TELE MONITOR AFIB 92. GTUBE SITE IS COVERED WITH COLOSTOMY BAG, BROWNISH, BLOODY DISCHARGE NOTED. SRX2, BED IN LOW POSITION, CALL LIGHT WITHIN REACH, WILL CONTINUE TO MONITOR PATIENT.
[2017-03-07] VITALS (8 sets, daily range): BP systolic 70–107; BP diastolic 32–61
--- NOTE | 2017-03-07 00:40 | NUR ---
HOSPITALIST NOCTURNIST PHYSICIAN NOTE PATIENT COMPLAINS OF ABDOMINAL PAIN, TYLENOL 650MG GT GIVEN.
[2017-03-07] MEDS: ACETAMINOPHEN 325 MG TABLET PO PRN ×2 (00:55→23:56)
[2017-03-07] MEDS: ALBUTEROL FS 2.5 MG/0.5 ML VIAL.NEB NEB SCH ×4 (01:23→20:16)
[2017-03-07] MEDS: IPRATROPIUM NEB FS 0.5 MG/2.5 ML AMPUL.NEB NEB SCH ×4 (01:23→20:16)
[2017-03-07] MEDS: MEROPENEM 500 MG in IV NS 0.9% 50 ML IV SCH ×2 (02:08→17:02)
[2017-03-07] MEDS: METOCLOPRAMIDE HCL 10 MG/10 ML UDC GT SCH ×3 (05:13→18:00)
[2017-03-07] MEDS: VANCOMYCIN HCL 125 MG/2.5 ML ORAL.SUSP PO SCH ×4 (05:13→23:56)
[2017-03-07] MEDS: MIDODRINE HCL (5MG) 5 MG TABLET PO SCH ×3 (05:14→21:32)
[2017-03-07] MEDS: IV NS 0.9% 1,000 ML IV PRN (05:49)
--- NOTE | 2017-03-07 06:50 | NUR ---
FRUIT I FARMWORKER NOTE PATIENT IS RESTING IN BED, NO ACUTE DISTRESS NOTED. GT COLOSTOMY BAG WAS CHANGED DUE TO LEAKING, IV ON RIGHT HAND IS PATENT AND INTACT, FLUID IS RUNNING. MORNING CARE RENDERED, REPOSITION AND TURN Q2H PERFORMED. TELE MONITOR SR 79. WILL ENDORSE TO DAY SHIFT NURSE FOR CONNOR.
--- NOTE | 2017-03-07 07:10 | NUR ---
CUSTOMER SERVICE CLERK NOTES RECEIVED PATIENT AWAKE, A/O X1. ABLE TO MOUTH WORDS. ON TELE MONITOR AFIB CONTROLLED HR 74. TRACH INTACT, ON VENT. GTUBE SITE STOMA STILL LEAKING WITH DARK BROWN AND REDDISH FLUID DRAINAGE. COLOSTOMY BAG IN PLACE. IV NS INFUSING AT 40ML/HR. BED LOW AND LOCKED. CALL LIGHT WITHIN REACH. WILL CONT TO MONITOR.
[2017-03-07 07:53] LABS: BASOPHILS % (AUTO) 0.2 % (0.0-2.0); EOSINOPHILS # (AUTO) 0.1 /CMM (0.0-0.7); EOSINOPHILS % (AUTO) 0.5 % (0.0-6.0); HEMATOCRIT 23 % (33-45); HEMOGLOBIN 7.6 g/dL (11.5-14.8); LYMPHOCYTES # (AUTO) 1.3 /CMM (0.8-4.8); LYMPHOCYTES % (AUTO) 6.6 % (20.0-44.0); MEAN CORPUSCULAR HEMOGLOBIN 33 PG (26.0-33.0); MEAN CORPUSCULAR HGB CONC 33 g/dl (31.0-36.0); MEAN CORPUSCULAR VOLUME 100 fL (82-100); MONOCYTES # (AUTO) 0.9 /CMM (0.1-1.30); MONOCYTES % (AUTO) 4.6 % (2.0-12.0); NEUTROPHILS % (AUTO) 88.1 % (43.0-81.0); PLATELET COUNT (AUTO) 224 /CMM (150-450); RDW COEFFICIENT OF VARIATION 18.1 (11.5-15.0); RED BLOOD CELL COUNT(AUTO) 2.32 MIL/uL (4.0-5.2); WHITE BLOOD COUNT (AUTO) 19.3 K/uL (4.3-11.0)
[2017-03-07] MEDS: METOPROLOL TARTRATE 25 MG TABLET PO SCH ×2 (09:00→20:58)
[2017-03-07] MEDS: HYDROGEL DRESSING 90 GM TUBE TP SCH (09:10)
[2017-03-07] MEDS: Z GUARD REMEDY 2 OZ OINT TP SCH (09:11)
[2017-03-07] MEDS: MUPIROCIN OINT 2% 22 GM TUBE SCH ×2 (09:13→21:40)
[2017-03-07] MEDS: LEVETIRACETAM SOL (5 ML) 100 MG/ML UDC GT SCH ×2 (09:14→21:31)
[2017-03-07] MEDS: CALCITRIOL ORAL SOLUTION 1 MCG/ML GT SCH (09:14)
[2017-03-07] MEDS: PROSOURCE / PROSTAT (PYXIS) 30 ML UDC GT SCH (09:16)
[2017-03-07] MEDS: ACIDOPHILUS/BULGARICUS 1 EACH TAB.CHEW GT SCH ×2 (09:17→21:31)
[2017-03-07] MEDS: ZINC SULFATE 220 MG CAPSULE PO SCH (09:17)
[2017-03-07] MEDS: BUMETANIDE (1 MG) 1 MG TABLET GT SCH (09:17)
[2017-03-07] MEDS: VIT B CMPLX 3/FA/VIT C/BIOTIN 1 TAB TABLET GT SCH (09:17)
[2017-03-07] MEDS ORDERED: FEE PK DOSING 1 MIN EA MC ONE (16:41)
[2017-03-07] MEDS ORDERED: VANCOMYCIN 500 MG in IV D5W 100 ML IV SCH (17:00)
[2017-03-07] MEDS: FLUCONAZOLE IN NS,PREMIX 400 MG in PREMIX 1 EA IV SCH ×2 (18:50)
--- NOTE | 2017-03-07 19:30 | NUR ---
TRAINING DESIGNER NOTES PATIENT IN BED, A/O X1. ON TELE MONITOR AFIB CONTROLLED HR 89. VENT SETTINGS REMAIN THE SAME, TRACH IN PLACE, SUCTION PRN. GTUBE SITE STILL LEAKING WITH LARGE AMOUNT OF DARK BLOODY DRAINAGE. PATIENT IS SEEN BY CJ ROTHMAN/BAKERY TECHNICIAN TODAY, AWARE OF THE FLUID DRAINAGE. DRESSING CHANGED IN SACRAL WOUND, TURN AND REPOSITION Q 2HR. CONTACT PRECAUTION OBSERVED. ENDORSED TO RANGE MASTER RN FOR CONTINUITY OF CARE.
[2017-03-07 21:23] LABS: APPEARANCE,URINE CLOUDY (CLEAR); BILIRUBIN,URINE 2+ (NEGATIVE); BLOOD, URINE 2+ Ery/uL (NEGATIVE); COLOR,URINE ORANGE (YELLOW); KETONES,URINE 1+ (NEGATIVE); LEUKOCYTE ESTERASE ,URINE 1+ (NEGATIVE); NITRITE, URINE NEGATIVE (NEGATIVE); PH,URINE 5.5 (5.0-8.0); PROTEIN,URINE 3+ mg/dl (NEGATIVE); UGLUCOSE NEGATIVE (NEGATIVE); UROBILINOGEN,URINE 0.2 EU/dL (0.2)
[2017-03-07 22:01] LABS: RBC,URINE TOO NUMEROUS TO COUN /HPF (0-2)
[2017-03-07 22:04] LABS: WBC,URINE TOO NUMEROUS TO COUN /HPF (0-3)
[2017-03-07 22:05] LABS: BACTERIA,URINE Moderate /HPF (None Seen); COARSE GRANULAR CASTS,URINE Few /LPF (None Seen); SQUAMOUS EPITHELIAL CELL,UR Moderate /HPF (None Seen); YEAST,URINE Many /HPF (None Seen)
--- NOTE | 2017-03-07 22:24 | NUR ---
called to give order to tx 1 unit prbc pre-op
--- NOTE | 2017-03-07 23:02 | NUR ---
Daughter at , aware of surgery tomorrow. Signed consent for blood
--- NOTE | 2017-03-07 23:04 | NUR ---
Continues on ventilator via trach, no distress noted
[2017-03-08] VITALS (12 sets, daily range): BP systolic 78–117; BP diastolic 36–58
[2017-03-08] MEDS: IPRATROPIUM NEB FS 0.5 MG/2.5 ML AMPUL.NEB NEB SCH ×4 (01:11→19:54)
[2017-03-08] MEDS: ALBUTEROL FS 2.5 MG/0.5 ML VIAL.NEB NEB SCH ×4 (01:11→19:54)
[2017-03-08] MEDS: MEROPENEM 500 MG in IV NS 0.9% 50 ML IV SCH ×2 (03:12→17:49)
[2017-03-08] MEDS: IV NS 0.9% 1,000 ML IV PRN (03:58)
[2017-03-08] MEDS: MIDODRINE HCL (5MG) 5 MG TABLET PO SCH ×3 (05:00→21:00)
--- NOTE | 2017-03-08 05:11 | NUR ---
Continues on ventilator via trach. no acute distress noted or voiced. No reaction from blood tx given.r
[2017-03-08] MEDS: METOCLOPRAMIDE HCL 10 MG/10 ML UDC GT SCH ×4 (05:52→18:00)
[2017-03-08] MEDS: VANCOMYCIN HCL 125 MG/2.5 ML ORAL.SUSP PO SCH ×3 (05:53→18:00)
[2017-03-08] MEDS: ACETAMINOPHEN 325 MG TABLET PO PRN (06:10)
[2017-03-08 08:09] LABS: BASOPHILS % (AUTO) 0.1 % (0.0-2.0); EOSINOPHILS # (AUTO) 0.2 /CMM (0.0-0.7); EOSINOPHILS % (AUTO) 1.4 % (0.0-6.0); HEMATOCRIT 23 % (33-45); HEMOGLOBIN 7.5 g/dL (11.5-14.8); LYMPHOCYTES # (AUTO) 1.4 /CMM (0.8-4.8); LYMPHOCYTES % (AUTO) 11.5 % (20.0-44.0); MEAN CORPUSCULAR HEMOGLOBIN 32 PG (26.0-33.0); MEAN CORPUSCULAR HGB CONC 32 g/dl (31.0-36.0); MEAN CORPUSCULAR VOLUME 99 fL (82-100); MONOCYTES # (AUTO) 0.8 /CMM (0.1-1.30); MONOCYTES % (AUTO) 6.4 % (2.0-12.0); NEUTROPHILS # (AUTO) 9.6 /CMM (1.8-8.9); NEUTROPHILS % (AUTO) 80.6 % (43.0-81.0); PLATELET COUNT (AUTO) 205 /CMM (150-450); RDW COEFFICIENT OF VARIATION 19.5 (11.5-15.0); RED BLOOD CELL COUNT(AUTO) 2.37 MIL/uL (4.0-5.2); WHITE BLOOD COUNT (AUTO) 11.9 K/uL (4.3-11.0)
[2017-03-08 08:32] LABS: CARBON DIOXIDE 24 mmol/L (21-32); CHLORIDE 106 mmol/L (98-107); CREATININE 2.4 mg/dL (0.6-1.3); GLUCOSE 72 mg/dL (74-106); POTASSIUM 3.6 mmol/L (3.5-5.1); SODIUM SERUM 146 mmol/L (136-145); UREA NITROGEN, BLOOD 37 mg/dL (7-18)
[2017-03-08] MEDS: LEVETIRACETAM SOL (5 ML) 100 MG/ML UDC GT SCH ×2 (09:00→21:00)
[2017-03-08] MEDS: CALCITRIOL ORAL SOLUTION 1 MCG/ML GT SCH (09:00)
[2017-03-08] MEDS: VIT B CMPLX 3/FA/VIT C/BIOTIN 1 TAB TABLET GT SCH (09:00)
[2017-03-08] MEDS: BUMETANIDE (1 MG) 1 MG TABLET GT SCH (09:00)
[2017-03-08] MEDS: PROSOURCE / PROSTAT (PYXIS) 30 ML UDC GT SCH (09:00)
[2017-03-08] MEDS: ZINC SULFATE 220 MG CAPSULE PO SCH (09:00)
[2017-03-08] MEDS: METOPROLOL TARTRATE 25 MG TABLET PO SCH (09:00)
[2017-03-08] MEDS: ACIDOPHILUS/BULGARICUS 1 EACH TAB.CHEW GT SCH ×2 (09:00→21:00)
[2017-03-08] MEDS: MUPIROCIN OINT 2% 22 GM TUBE SCH ×2 (09:25→21:00)
[2017-03-08] MEDS: HYDROGEL DRESSING 90 GM TUBE TP SCH (09:25)
[2017-03-08] MEDS: Z GUARD REMEDY 2 OZ OINT TP SCH (09:26)
--- NOTE | 2017-03-08 11:00 | NUR ---
MS RN NOTES PATIENTS DAUGHTER AT BEDSIDE NAME BARI, SPOKE TO ARNOL PATIENTS SON WHO SPOKE TO PARVEEN LINTON OF DR. MELÉNDEZ WHO EXPLAINED PATIENTS PROCEDURE. BOTHER BARI DAUGHTER AT BEDSIDE AND ARNOL SON OVER THE PHONE CONSENTED TO PATIENTS SCHEDULED PROCEDURE. NOTED AND CARRIED OUT. INFORMED OR THAT CONSENT WAS OBTAINED.
[2017-03-08] MEDS ORDERED: VANCOMYCIN 500 MG in IV D5W 100 ML IV PRN (12:30)
--- NOTE | 2017-03-08 12:30 | NUR ---
DIRECTOR OF PERSONNEL NOTES PATIENT NOTED WITH HEART RATE OF 150 A-FIB. NOTED FLUCTUATING FROM 119-130. PAGED DR. SOTO BRAZING MACHINE OPERATOR AUTOMATIC WAITING FOR CALL BACK. PATIENT ASYMPTOMATIC STATES SHE FEELS FINE. DAUGHTER AT BEDSIDE. NO SOB OR ACUTE DISTRESS NOTED. BP OF 112/52 O2 SATURATION OF 100%.
--- NOTE | 2017-03-08 13:00 | NUR ---
SPEECH PATHOLOGY SUPERVISOR NOTES PATIENT SEEN AND EVALUATED BY DR. ARMAS ORDERS OBTAINED FOR DIGOXIN 0.125MG IV PUSH ALSO PATIENT NOTED TO HAVE TEMP 101.8 DR. ARMAS MADE ORDER OBTAINED FOR SUPPOSITORY ACETAMINOPHEN NOTED AND CARRIED OUT.
[2017-03-08] MEDS ORDERED: DIGOXIN INJ 0.5 MG/2 ML AMPUL IV ONE ×2 (13:30→16:00)
--- NOTE | 2017-03-08 13:30 | NUR ---
BILLING AND ACCOUNTING STAFF ASSISTANT NOTES ADMINISTERED DIGOXIN IV PUSH AND TYLENOL SUPPOSITORY WILL CONTINUE TO MONITOR CLOSELY.
[2017-03-08] MEDS ORDERED: VANCOMYCIN 1 GM in IV D5W 250 ML IV ONE (15:00)
--- NOTE | 2017-03-08 16:00 | NUR ---
CUSTOMER SERVICE REP NOTES PATIENT SEEN AND EVALUATE BY DR. MOYA ORDERS NOTED AND CARRIED OUT. ORDERS FOR DIGOXIN CLARIFIED IF HEART RATE BELOW 100 NOT TO ADMINISTER. NOTED AND IVY OUT.
--- NOTE | 2017-03-08 16:30 | NUR ---
SERVICE AND REPAIR SUPERVISOR NOTES PATIENT NOTED WITH BP OF 78/38 PULSE OF 91 TEMP OF 98.2, RESPIRATION OF 14 PAGED WAITING FOR CALL BACK.
--- NOTE | 2017-03-08 18:00 | NUR ---
REMARKETING REP NOTES BP OF 78/40 PULSE OF 92 RESP. 14 TEMP OF 98.2 PATIENT ASYMPTOMATIC. SON AT BEDSIDE PATIENT ABLE TO SPEAK TO SON DENIES ANY DISTRESS. PAGED DR. MELÉNDEZ BACK PANEL PADDER WAITING FOR CALL BACK.
[2017-03-08] MEDS: FLUCONAZOLE IN NS,PREMIX 400 MG in PREMIX 1 EA IV SCH ×2 (18:46)
--- NOTE | 2017-03-08 21:49 | NUR ---
SPOKE WITH DR. MELÉNDEZ TO CLARIFY MEDS PER GT , TO HOLD ALL MEDS TILL AM, WILL SEE PT IN AM.
[2017-03-09] VITALS (8 sets, daily range): BP systolic 80–98; BP diastolic 35–53
[2017-03-09] MEDS: IPRATROPIUM NEB FS 0.5 MG/2.5 ML AMPUL.NEB NEB SCH ×4 (01:59→19:39)
[2017-03-09] MEDS: ALBUTEROL FS 2.5 MG/0.5 ML VIAL.NEB NEB SCH ×4 (01:59→19:39)
[2017-03-09] MEDS: MEROPENEM 500 MG in IV NS 0.9% 50 ML IV SCH ×2 (03:44→16:32)
[2017-03-09] MEDS: MIDODRINE HCL (5MG) 5 MG TABLET PO SCH ×3 (04:48→21:00)
[2017-03-09] MEDS: METOCLOPRAMIDE HCL 10 MG/10 ML UDC GT SCH ×5 (04:49→23:52)
[2017-03-09] MEDS: VANCOMYCIN HCL 125 MG/2.5 ML ORAL.SUSP PO SCH ×5 (04:49→23:52)
--- NOTE | 2017-03-09 06:30 | NUR ---
pt c/o pain when repositioning, gt drain 275cc overnight bilious drainage, klein tea colored drain 100cc overnight.continue with if fluids and antibiotic, npo and gt clamped. continue to hold all gt meds until seen by this am. no surgery schedule at this time and family aware. A-fib on monitor @ 70-80's.kept clean and dry.
--- NOTE | 2017-03-09 08:00 | NUR ---
BLACKTOP SPREADER NOTES PATIENT ALERT AND ORIENTED X1, ABLE TO MOUTH WORDS, REMAINS NPO, WILL F/U WITH RE: PLAN OF CARE FOR TODAY, VENT SETTINGS TOLERATING WELL, GT DRAINING, CARY PATENT AND DRAINING, TURNED AND REPOSITIONED, KEPT SKIN CLEAN AND DRY, CALL LIGHT WITHIN REACH, WILL CONTINUE TO MONITOR.
[2017-03-09] MEDS ORDERED: ALBUTEROL FS 2.5 MG/3 ML VIAL.NEB ONE (08:07)
[2017-03-09 08:30] LABS: BASOPHILS % (AUTO) 0.1 % (0.0-2.0); CALCIUM, SERUM 8.1 mg/dL (8.5-10.1); CARBON DIOXIDE 25 mmol/L (21-32); CHLORIDE 105 mmol/L (98-107); CREATININE 2.3 mg/dL (0.6-1.3); EOSINOPHILS # (AUTO) 0.1 /CMM (0.0-0.7); EOSINOPHILS % (AUTO) 0.2 % (0.0-6.0); GLUCOSE 65 mg/dL (74-106); HEMATOCRIT 22 % (33-45); LYMPHOCYTES # (AUTO) 1.5 /CMM (0.8-4.8); LYMPHOCYTES % (AUTO) 6.4 % (20.0-44.0); MAGNESIUM 1.8 mg/dL (1.8-2.4); MEAN CORPUSCULAR HEMOGLOBIN 32 PG (26.0-33.0); MEAN CORPUSCULAR HGB CONC 32 g/dl (31.0-36.0); MEAN CORPUSCULAR VOLUME 99 fL (82-100); MONOCYTES # (AUTO) 0.9 /CMM (0.1-1.30); MONOCYTES % (AUTO) 3.8 % (2.0-12.0); NEUTROPHILS # (AUTO) 20.7 /CMM (1.8-8.9); NEUTROPHILS % (AUTO) 89.5 % (43.0-81.0); PHOSPHORUS 4.5 mg/dL (2.5-4.9); PLATELET COUNT (AUTO) 184 /CMM (150-450); POTASSIUM 3.6 mmol/L (3.5-5.1); RDW COEFFICIENT OF VARIATION 18.8 (11.5-15.0); RED BLOOD CELL COUNT(AUTO) 2.18 MIL/uL (4.0-5.2); SODIUM SERUM 145 mmol/L (136-145); UREA NITROGEN, BLOOD 27 mg/dL (7-18); WHITE BLOOD COUNT (AUTO) 23.2 K/uL (4.3-11.0)
[2017-03-09] MEDS: BUMETANIDE (1 MG) 1 MG TABLET GT SCH (09:00)
[2017-03-09] MEDS: CALCITRIOL ORAL SOLUTION 1 MCG/ML GT SCH (09:00)
[2017-03-09] MEDS: PROSOURCE / PROSTAT (PYXIS) 30 ML UDC GT SCH (09:00)
[2017-03-09] MEDS: ZINC SULFATE 220 MG CAPSULE PO SCH (09:00)
[2017-03-09] MEDS: VIT B CMPLX 3/FA/VIT C/BIOTIN 1 TAB TABLET GT SCH (09:00)
[2017-03-09] MEDS: ACIDOPHILUS/BULGARICUS 1 EACH TAB.CHEW GT SCH ×2 (09:00→21:00)
--- NOTE | 2017-03-09 09:52 | NUR ---
HEALTH EDUCATION AIDE NOTES DISCUSSED WITH DR. ARMAS RE: H&H AND MEDICATIONS, RECEIVED NEW ORDER TO GIVE 1 UNIT OF PRBC, FOR MEDICATIONS, CHANGE KEPPRA TO IV, OTHER MEDS CAN BE HELD, AND F/U WITH ID RE: VANCOCIN. WILL F/U WITH CARDIOLOGY RE: PLAN FOR SURGERY. ORDER NOTED AND CARRIED OUT.
[2017-03-09] MEDS: HYDROGEL DRESSING 90 GM TUBE TP SCH (10:24)
[2017-03-09] MEDS: MUPIROCIN OINT 2% 22 GM TUBE SCH ×2 (10:24→23:18)
[2017-03-09] MEDS: Z GUARD REMEDY 2 OZ OINT TP SCH (10:24)
[2017-03-09] MEDS: LEVETIRACETAM (500MG) 500 MG in IV NS 0.9% 100 ML IV SCH ×2 (10:32→23:18)
--- NOTE | 2017-03-09 12:02 | NUR ---
rt note pulled out 2.5 /3ml albuterol. then returned and removed 2.5 /0.5 ml albuterol per emr
--- NOTE | 2017-03-09 14:04 | NUR ---
LOGISTICS ENGINEER NOTES BLOOD TRANSFUSION OF 1 UNIT PRBC STARTED, WILL MONITOR VS AND FOR ADVERSE REACTION.
--- NOTE | 2017-03-09 15:28 | NUR ---
AYLIN MS NOTES FIRST VS INPUTTED AT 1515 - ENTERED INCORRECTLY, UPDATED. Addendum: 03/09/17 at 1651 by CASI OSHEA RN CORRECTION - AYLIN CACERES
--- NOTE | 2017-03-09 16:30 | NUR ---
CHEMISTRY QUALITY CONTROL TECHNICIAN NOTES PATIENT COMPLETED BLOOD TRANSFUSION OF 1 UNIT PRBC, PATIENT'S VITALS AT BASELINE, NO S/SX OF DISTRESS NOTED. WILL CONTINUE TO MONITOR.
[2017-03-09] MEDS: FLUCONAZOLE IN NS,PREMIX 400 MG in PREMIX 1 EA IV SCH ×2 (18:07)
--- NOTE | 2017-03-09 19:01 | NUR ---
ASSEMBLER LEATHER GOODS NOTES PATIENT'S TELE MONITOR SHOWS AFIB 80S, PATIENT WAS SEEN BY SERA ASSOCIATE OF DR. MELÉNDEZ, DR. MOYA, DR. CARRION AND DR. YOON, DIALYSIS IS SCHEDULED TOMORROW, PLAN OF SURGERY WILL BE TUESDAY, PATIENT KEPT NPO AND GT MEDICATIONS HELD, DRAINAGE OUTPUT 150CC, F/C 50CC, NO BOWEL MOVEMENT, PATIENT TURNED AND REPOSITIONED, WOUND TREATMENT RENDERED. WILL ENDORSE TO COACH MECHANIC FOR CONNOR.
[2017-03-09] MEDS: METRONIDAZOLE 500MG/ NS 100ML 500 MG in PREMIX 1 EA IV SCH (22:12)
[2017-03-10] VITALS (7 sets, daily range): BP systolic 80–124; BP diastolic 40–49
--- NOTE | 2017-03-10 | NUR ---
0000 MEDS HOLD, PT NPO, FOR GT PLACEMENT.
[2017-03-10] MEDS: IPRATROPIUM NEB FS 0.5 MG/2.5 ML AMPUL.NEB NEB SCH ×4 (00:57→20:24)
[2017-03-10] MEDS: ALBUTEROL FS 2.5 MG/0.5 ML VIAL.NEB NEB SCH ×4 (00:57→20:24)
[2017-03-10] MEDS: METRONIDAZOLE 500MG/ NS 100ML 500 MG in PREMIX 1 EA IV SCH ×3 (02:32→19:20)
[2017-03-10] MEDS: MEROPENEM 500 MG in IV NS 0.9% 50 ML IV SCH ×2 (04:03→16:06)
[2017-03-10] MEDS: MIDODRINE HCL (5MG) 5 MG TABLET PO SCH ×3 (05:00→21:00)
[2017-03-10] MEDS: METOCLOPRAMIDE HCL 10 MG/10 ML UDC GT SCH ×4 (05:15→23:39)
[2017-03-10] MEDS: VANCOMYCIN HCL 125 MG/2.5 ML ORAL.SUSP PO SCH ×4 (05:16→23:39)
--- NOTE | 2017-03-10 06:00 | NUR ---
RN NOTES No significant change in condition noted. Patient is relaxed and calm. Family stayed at bedside until 0000. No concerns as of this time. Wound care done as ordered, patient able to tolerate well. No episode of seizure noted. Due meds given as ordered. Turned and repositioned as scheduled. Abdominal drainage bag output 100ml with dark green color output. VS within normal limits. No apparent distress noted. All needs attended. Will continue to monitor. No vomiting noted.
[2017-03-10] MEDS: DIGOXIN INJ 0.5 MG/2 ML AMPUL IV SCH (06:44)
[2017-03-10 07:03] LABS: BASOPHILS % (AUTO) 0.2 % (0.0-2.0); EOSINOPHILS # (AUTO) 0.1 /CMM (0.0-0.7); EOSINOPHILS % (AUTO) 0.9 % (0.0-6.0); HEMATOCRIT 24 % (33-45); HEMOGLOBIN 7.8 g/dL (11.5-14.8); LYMPHOCYTES # (AUTO) 1.2 /CMM (0.8-4.8); LYMPHOCYTES % (AUTO) 10.2 % (20.0-44.0); MEAN CORPUSCULAR HEMOGLOBIN 32 PG (26.0-33.0); MEAN CORPUSCULAR HGB CONC 33 g/dl (31.0-36.0); MEAN CORPUSCULAR VOLUME 97 fL (82-100); MONOCYTES # (AUTO) 0.7 /CMM (0.1-1.30); MONOCYTES % (AUTO) 6.1 % (2.0-12.0); NEUTROPHILS # (AUTO) 9.5 /CMM (1.8-8.9); NEUTROPHILS % (AUTO) 82.6 % (43.0-81.0); PLATELET COUNT (AUTO) 167 /CMM (150-450); RDW COEFFICIENT OF VARIATION 19.8 (11.5-15.0); RED BLOOD CELL COUNT(AUTO) 2.46 MIL/uL (4.0-5.2); WHITE BLOOD COUNT (AUTO) 11.5 K/uL (4.3-11.0)
[2017-03-10 07:28] LABS: CALCIUM, SERUM 8.1 mg/dL (8.5-10.1); CARBON DIOXIDE 24 mmol/L (21-32); CHLORIDE 106 mmol/L (98-107); CREATININE 2.4 mg/dL (0.6-1.3); GLUCOSE 61 mg/dL (74-106); MAGNESIUM 1.8 mg/dL (1.8-2.4); PHOSPHORUS 4.8 mg/dL (2.5-4.9); POTASSIUM 3.6 mmol/L (3.5-5.1); SODIUM SERUM 147 mmol/L (136-145); UREA NITROGEN, BLOOD 31 mg/dL (7-18); VANCOMYCIN,TROUGH 21 ug/ml (12-20)
--- NOTE | 2017-03-10 08:45 | NUR ---
COLOSTOMY BAG CHANGED, 110ML DARK GREEN FLUID DRAINAGE OBTAINED. DIALYSIS TREATMENT STARTED, DIALYSIS NURSE AT THE BEDSIDE.
[2017-03-10] MEDS: ACIDOPHILUS/BULGARICUS 1 EACH TAB.CHEW GT SCH ×2 (09:00→21:00)
[2017-03-10] MEDS: CALCITRIOL ORAL SOLUTION 1 MCG/ML GT SCH (09:00)
[2017-03-10] MEDS: ZINC SULFATE 220 MG CAPSULE PO SCH (09:00)
[2017-03-10] MEDS: PROSOURCE / PROSTAT (PYXIS) 30 ML UDC GT SCH (09:00)
[2017-03-10] MEDS: VIT B CMPLX 3/FA/VIT C/BIOTIN 1 TAB TABLET GT SCH (09:00)
[2017-03-10] MEDS: HYDROGEL DRESSING 90 GM TUBE TP SCH (09:03)
[2017-03-10] MEDS: MUPIROCIN OINT 2% 22 GM TUBE SCH ×2 (09:05→21:30)
--- NOTE | 2017-03-10 10:20 | NUR ---
DIALYSIS TREATMENT DONE, NO FLUID OUTPUT PER DIALYSIS NURSE/AMET, TODAY PERFORMED CLEANING ONLY.
[2017-03-10] MEDS ORDERED: EPOETIN ALFA (10,000 UNIT) 10,000 UNIT/ML VIAL SQ SCH (10:30)
[2017-03-10] MEDS: Z GUARD REMEDY 2 OZ OINT TP SCH (10:30)
[2017-03-10] MEDS: IV D5/0.45 NACL 1,000 ML IV PRN (11:15)
--- NOTE | 2017-03-10 11:18 | NUR ---
ELEVATED VANCOMYCIN TROUGH 21, CALLED PHARMACY SPOKE TO NINA, HOLD VANCOMYCIN DOSE TODAY.
[2017-03-10] MEDS: LEVETIRACETAM (500MG) 500 MG in IV NS 0.9% 100 ML IV SCH ×2 (11:39→21:27)
[2017-03-10] MEDS ORDERED: DILTIAZEM HCL 25 MG IV IV STA (12:06)
--- NOTE | 2017-03-10 12:07 | NUR ---
INCREASING HR 130's TO 152. BP 133/[address] ARMAS ORDERED TO GIVE DILTIAZEM 10MG IVP NOW, PER MD AFTER DOSE OF DILTIAZEM IF HR INCREASE AGAIN, TO CARDIO. WILL CONT TO MONITOR AND WILL ENDORSE TO NEXT SHIFT RN.
--- NOTE | 2017-03-10 12:18 | NUR ---
pt hr > 140 bpm rn aware Addendum: 03/10/17 at 1219 by ALEX CANSECO RT Amended: Links added.
--- NOTE | 2017-03-10 13:15 | NUR ---
PATIENT ON TELE MONITOR AFIB HR 142 INCREASING TO 150's AFTER DILTIAZEM 10MG IVP X1. DR. MOYA/CARDIO MADE AWARE, WILL CONT TO MONITOR PATIENT.
--- NOTE | 2017-03-10 13:49 | NUR ---
HR IS STILL >130. BREATHING TX NOT GIVEN. RN AWARE Addendum: 03/10/17 at 1350 by ALEX CANSECO RT Amended: Links added.
--- NOTE | 2017-03-10 14:06 | NUR ---
ELEVATED TEMP. 100.2 COOLING MEASURES RENDERED. WILL CONT TO MONITOR.
[2017-03-10] MEDS: ACETAMINOPHEN 650 MG/SUPP.RECT RC PRN (14:54)
--- NOTE | 2017-03-10 15:19 | NUR ---
TEMP 101.2 CONTINUE COOLING MEASURES, GIVEN TYLENOL 650MG SUPP. WILL REASSESS. URINE TEA COLORED, PATIENT IS SEEN BY LIBRARY SALES CONSULTANT/NOÉ SLADE.
--- NOTE | 2017-03-10 16:10 | NUR ---
DECREASING FEVER. TEMP 99 ORAL
[2017-03-10] MEDS: FLUCONAZOLE IN NS,PREMIX 400 MG in PREMIX 1 EA IV SCH ×2 (17:11)
--- NOTE | 2017-03-10 19:00 | NUR ---
MANAGER INTERN CLOSING NOTES PATIENT IN BED, A/O X1. NPO STATUS. ON TELE MONITOR AFIB HR 83. VENT SETTINGS REMAIN THE SAME, TRACH IN PLACE, SUCTION PRN. ON D5 1/2 NS INFUSING AT 40ML/HR, TOLERATING WELL GTUBE SITE STILL LEAKING WITH LARGE AMOUNT OF DARK GREEN FLUID DRAINAGE. CARY CATH IN PLACE WITH TEA COLORED URINE. DRESSING CHANGED IN SACRAL WOUND, TURN AND REPOSITION Q 2HR. CONTACT ISOLATION MRSA NARES. FOR SURGERY TOMORROW 03/11/17. CONSENT FORM IN THE CHART, ENDORSED TO BELT MEASURER RN FOR CONTINUITY OF CARE.
--- NOTE | 2017-03-10 20:40 | NUR ---
GUN REPAIR CLERK INITIAL NOTES RECEIVED PATIENT IN BED, ON VENT TV 500, AC 14, PEEP 5, FIO2 40%, P# 8. A/O X1. NPO STATUS. ON TELE MONITOR AFIB HR 84. TRACH IN PLACE, SUCTION PRN. ON D5 1/2 NS INFUSING AT 40ML/HR, TOLERATING WELL GTUBE SITE STILL LEAKING WITH LARGE AMOUNT OF DARK GREEN FLUID DRAINAGE. CARY CATH IN PLACE WITH TEA COLORED URINE. DRESSING CHANGED IN SACRAL WOUND, TURN AND REPOSITION Q 2HR. CONTACT ISOLATION MRSA NARES. FOR SURGERY TOMORROW 03/11/17. CONSENT FORM IN THE CHART, ENDORSED TO CLOCK ASSEMBLER RN FOR CONTINUITY OF CARE
--- NOTE | 2017-03-10 21:39 | NUR ---
2100 GT MEDS NOT GIVEN PT NPO FOR GT REPLACEMENT CONT ON FLUIDS D5 1/2 NS @40 ML/HR WILL CONT TO MONITOR BP.
--- NOTE | 2017-03-10 21:40 | NUR ---
PT C/O OF ABD PAIN 01/06 ASSESSED PT NOTED F/C KINKED, STRAIGHTEN F/C ABLE TO DRAIN PERFECT, PT SEEN BY DR YOON, FAMILY BY BED SIDE REQUESTED PAIN MEDS. DR YOON ORDERED DILAUDID 0.5MG X ONCE IV PUSH ORDER CARRIED OUT, CONT TO MONITOR V/S.
[2017-03-10] MEDS ORDERED: HYDROMORPHONE INJ 2 MG/ML DISP.SYRIN ONE (22:14)
[2017-03-10] MEDS ORDERED: HYDROMORPHONE 1 MG/1 ML DISP.SYRIN IV ONE (22:30)
[2017-03-11] VITALS (7 sets, daily range): BP systolic 83–102; BP diastolic 41–51
[2017-03-11] MEDS: IPRATROPIUM NEB FS 0.5 MG/2.5 ML AMPUL.NEB NEB SCH ×4 (01:02→20:23)
[2017-03-11] MEDS: ALBUTEROL FS 2.5 MG/0.5 ML VIAL.NEB NEB SCH ×4 (01:02→20:23)
[2017-03-11] MEDS: METRONIDAZOLE 500MG/ NS 100ML 500 MG in PREMIX 1 EA IV SCH ×2 (02:09→10:00)
[2017-03-11] MEDS: MEROPENEM 500 MG in IV NS 0.9% 50 ML IV SCH ×2 (03:59→16:23)
[2017-03-11] MEDS: MIDODRINE HCL (5MG) 5 MG TABLET PO SCH ×3 (04:15→22:46)
--- NOTE | 2017-03-11 04:43 | NUR ---
0500 MIDODRINE NOT GIVEN PT NPO.
[2017-03-11] MEDS: METOCLOPRAMIDE HCL 10 MG/10 ML UDC GT SCH ×4 (05:12→22:46)
[2017-03-11] MEDS: VANCOMYCIN HCL 125 MG/2.5 ML ORAL.SUSP PO SCH ×3 (05:13→17:36)
--- NOTE | 2017-03-11 05:14 | NUR ---
0600 REGLAN AND VANCOCIN NOT GIVEN ,PT ON NPO STATUS.
--- NOTE | 2017-03-11 06:54 | NUR ---
HEALTH EVALUATOR CLOSING NOTES ENDORSED PATIENT IN BED, ON VENT TV 500, AC 14, PEEP 5, FIO2 40%, P# 8. A/O X1. NPO STATUS. ON TELE MONITOR AFIB HR [address], SUCTION PRN. ON D5 1/2 NS INFUSING AT 40ML/HR, TOLERATING WELL GTUBE SITE STILL LEAKING WITH LARGE AMOUNT OF DARK GREEN FLUID DRAINAGE. CARY CATH IN PLACE WITH TEA COLORED URINE. DRESSING CHANGED IN SACRAL WOUND, TURN AND REPOSITION Q 2HR. CONTACT ISOLATION MRSA NARES. FOR SURGERY TOMORROW 03/11/17. CONSENT FORM IN THE CHART, ENDORSED TO AM SHIFT RN TO F/U FOR CONTINUITY OF CARE.
[2017-03-11 07:31] LABS: BASOPHILS % (AUTO) 0.1 % (0.0-2.0); EOSINOPHILS # (AUTO) 0.1 /CMM (0.0-0.7); EOSINOPHILS % (AUTO) 0.4 % (0.0-6.0); HEMATOCRIT 23 % (33-45); HEMOGLOBIN 7.5 g/dL (11.5-14.8); LYMPHOCYTES # (AUTO) 1.3 /CMM (0.8-4.8); LYMPHOCYTES % (AUTO) 5.5 % (20.0-44.0); MEAN CORPUSCULAR HEMOGLOBIN 32 PG (26.0-33.0); MEAN CORPUSCULAR HGB CONC 33 g/dl (31.0-36.0); MEAN CORPUSCULAR VOLUME 98 fL (82-100); MONOCYTES # (AUTO) 0.7 /CMM (0.1-1.30); NEUTROPHILS # (AUTO) 21.2 /CMM (1.8-8.9); PLATELET COUNT (AUTO) 152 /CMM (150-450); RDW COEFFICIENT OF VARIATION 19.1 (11.5-15.0); RED BLOOD CELL COUNT(AUTO) 2.35 MIL/uL (4.0-5.2); WHITE BLOOD COUNT (AUTO) 23.3 K/uL (4.3-11.0)
[2017-03-11 07:39] LABS: INR 1.63 (0.87-1.13)
[2017-03-11 07:47] LABS: DIGOXIN 1.22 ng/mL (0.90-2.00)
[2017-03-11 07:48] LABS: CALCIUM, SERUM 7.9 mg/dL (8.5-10.1); CARBON DIOXIDE 24 mmol/L (21-32); CHLORIDE 106 mmol/L (98-107); CREATININE 2.2 mg/dL (0.6-1.3); GLUCOSE 73 mg/dL (74-106); MAGNESIUM 1.6 mg/dL (1.8-2.4); PHOSPHORUS 3.9 mg/dL (2.5-4.9); POTASSIUM 3.5 mmol/L (3.5-5.1); SODIUM SERUM 144 mmol/L (136-145); UREA NITROGEN, BLOOD 22 mg/dL (7-18)
--- NOTE | 2017-03-11 08:20 | NUR ---
ms rn received on bed, awake,oriented x1, not in any form of distress, respiration even and unlabored,no sob noted, vent dependent patient, noted to have a colostomy bag placed at g tube site w/ greenish secretion,will monitor patient.
[2017-03-11] MEDS: Z GUARD REMEDY 2 OZ OINT TP SCH (09:00)
[2017-03-11] MEDS: CALCITRIOL ORAL SOLUTION 1 MCG/ML GT SCH (09:00)
[2017-03-11] MEDS: HYDROGEL DRESSING 90 GM TUBE TP SCH (09:00)
[2017-03-11] MEDS: ACIDOPHILUS/BULGARICUS 1 EACH TAB.CHEW GT SCH ×2 (09:00→22:43)
[2017-03-11] MEDS: ZINC SULFATE 220 MG CAPSULE PO SCH (09:00)
[2017-03-11] MEDS: MUPIROCIN OINT 2% 22 GM TUBE SCH ×2 (09:00→22:44)
[2017-03-11] MEDS: PROSOURCE / PROSTAT (PYXIS) 30 ML UDC GT SCH (09:00)
[2017-03-11] MEDS: VIT B CMPLX 3/FA/VIT C/BIOTIN 1 TAB TABLET GT SCH (09:00)
--- NOTE | 2017-03-11 09:20 | NUR ---
ms rn patient went down to or for surgery ,all needs attended.
[2017-03-11] MEDS ORDERED: ATRACURIUM 100MG/10 ML MDV IV ONE (09:54)
[2017-03-11] MEDS ORDERED: FENTANYL PF 100MCG/2ML AMPUL ONE (09:54)
[2017-03-11] MEDS: LEVETIRACETAM (500MG) 500 MG in IV NS 0.9% 100 ML IV SCH ×2 (10:00→22:48)
--- NOTE | 2017-03-11 10:26 | NUR ---
RT NOTE PT TRANSPORTED TO SURGERY VIA AMBU BAG. VENT PLACED IN RECOVERY ROOM REQUESTED BY MD. NO DISTRESS NOTED. WILL CONTINUE TO MONITOR. Addendum: 03/11/17 at 1027 by RIOS ROCHA RT Amended: Links added.
[2017-03-11] MEDS ORDERED: Magnesium 1GM/D5W 100ML PREMIX 100 ML IV SCH ×2 (11:00→14:00)
[2017-03-11] MEDS ORDERED: POVIDONE-IODINE OINT 28.4 GM TUBE ONE (11:36)
--- NOTE | 2017-03-11 12:30 | NUR ---
WHITNEY RN ADMITTING NOTES: REC'D REPORT FROM CN. PT TRANSFERRED FROM OR TO 113/2, WHITNEY STATUS. PT ON MV VIA TRACH (PORTEX 8), SATURATING AT 100%. SECRETION SUCTIONED. PT PLACED ON TELEMONITOR, AFIB CONTROLLED HR 68 BPM. PT S/P GI PROCEDURE W/ GT INTACT AND IN PLACE W/ NO DRAINAGE AT THE SITE. GT DRAIN BY GRAVITY ORDERED. POST OP SURGICAL SITE CLEAN, DRY & INTACT W/ NO S/SX OF INFECTION NOTED. HAS L HAND G22 SL, FLUSHED, PATENT & INTACT W/ NO S/SX OF INFECTION/ INFILTRATION NOTED. HAS PATENT & INTACT FC. PT ORIENTED TO ROOM. PROVIDED COMFORT & SAFETY MEASURES. BED KEPT LOW & IN LOCKED POS. CALL LIGHT PLACED W/IN REACH. WILL CONTINUE TO MONITOR.
--- NOTE | 2017-03-11 13:20 | NUR ---
RN NOTES: PINK ALERTS ON EMAR CLEARED. MEDICATIONS NON ADMINISTERED. FOR PT'S SAFETY.
--- NOTE | 2017-03-11 14:00 | NUR ---
RN NOTES: PT'S BP AT 84/68, HR 68 (AFIB CONTROLLED), SATURATING AT 100%. PT WAS REFERRED TO DR. ARMAS W/ ORDERS TO GIVE NS 250 CC WIDE OPEN X1. MD ALSO MADE AWARE OF PROCALCITONIN LEVEL 67.62. DR. MOYA ALSO UPDATED W/ PT'S BP. AGREED TO GIVE 250 CC NS BOLUS X1. PT WAS ALSO REFERRED C/O POST OP PAIN IF OKAY TO GIVE PAIN MEDICATION VIA IV. PER MD DUE TO LOW BP, OBSERVE PAIN LEVEL FOR NOW. PT AND FAMILY MADE AWARE.
[2017-03-11] MEDS ORDERED: IV NS 0.9% 250 ML IV ONE (14:30)
--- NOTE | 2017-03-11 14:30 | NUR ---
RN NOTES: PT SEEN & EXAMINED BY DR. ARMAS. PT'S BP STILL AT SBP 80'S S/P BOLUS OF NS 250CC W/ ORDERS TO GIVE 25% ALBUMIN 200 CC NOW. PT IS SCHED TO HAVE HD TOMORROW. PT WAS ALSO SEEN BY DR. CARRION W/ NO NEW ORDERS AT THIS TIME.
[2017-03-11] MEDS ORDERED: ALBUMIN 25% 25 GM in PREMIX 1 EA IV ONE ×2 (15:00→15:30)
[2017-03-11] MEDS: IV D5/0.45 NACL 1,000 ML IV PRN (16:53)
[2017-03-11] MEDS: FLUCONAZOLE IN NS,PREMIX 400 MG in PREMIX 1 EA IV SCH ×2 (17:32)
--- NOTE | 2017-03-11 18:49 | NUR ---
WHITNEY RN CLOSING NOTES: NO ACUTE CHANGES NOTED W/IN SHIFT. PT TOLERATED MV SETTINGS VIA TRACH. MINIMAL SECRETION SUCTIONED. ON TELEMONITOR, STILL AFIB CONTROLLED. POST OP SURGICAL SITE KEPT CLEAN, DRY & INTACT W/ NO S/SX OF INFECTION NOTED. GT KEPT IN PLACED DRAINING BY GRAVITY W/ NO OUTPUT NOTED. L HAND G22 PL KEPT PATENT & INTACT W/ NO S/SX OF INFECTION/ INFILTRATION NOTED, W/ D5 1/2 NS X 40 CC/HR INFUSING WELL. R HAND G22, SL, KEPT PATENT & INTACT. FC KEPT PATENT & INTACT. PT KEPT WELL RESTED. NEEDS ATTENDED. BED KEPT LOW & IN LOCKED POS. CALL LIGHT PLACED W/IN REACH. WILL ENDORSE TO PM RN FOR CONNOR.
--- NOTE | 2017-03-11 20:00 | NUR ---
SHIPPING RECEIVING MANAGER - REC'D PT. IN RM#113-BED 2, POSITION. PT. ONLY UNDERSTANDS KYRGYZ-NO ESTONIAN. PT. CAN MOUTH WORDS ONLY & WILL NOD HEAD "YES OR NO" TO QUESTIONS ASKED. PT.IS S/P MAJOR ABD. SURGERY/NEW PEG PLACEMENT. CARY BAG ATTACHED TO GRAVITY VIA PEG WILL NOT HOLD. ORDERS TO PLACE COLOSTOMY BAG ATTEMPTED/WILL NOT HOLD IN PLACE. PEG DRAINED SEVERAL TIMES. VERY LITTLE OUT-PINK TINGED FLUID/10CC AT MOST. ISOLATION-MRSA NARES. AFEBRILE. 20:00 SBP = 83/43. RETAKEN = 96/45. EXCORIATION AROUND PEG. SITE. STAGE IV TO SACRAL AREA. HD CATH TO RT.C/W. DIALYSIS SCHED. FOR TOMORROW. LEFT WRIST & RT.HAND 22G PIV'S ARE PATENT TO FLUSH. TRACH/VENT W/SETTINGS AT AC-14,TV-500 & 40%. DIM. TO ALL LOBES W/O2 SATS AT 100%. +1 EDEMA TO BILAT.FEET. CONT.POC.
[2017-03-12] VITALS: BP 102/46
--- NOTE | 2017-03-12 01:00 | NUR ---
MODEL MAKER - HEART MONITOR CONTINUES TO SHOW AFIB/CONT./70'S. NO S/S OF DISTRESS, HOWEVER PT. DID C/O ABD. PAIN. TYLENOL 650MG/SUPP. ADM. AT 01:30 AM FOR COMFORT. VERY LITTLE OUTPUT VIA PEG. PT.IS DNR STATUS. PT'S SON-RAYMOND PHONED-STATUS UPDATE GIVEN OVER PHONE. CONT. POC.
[2017-03-12] MEDS: ACETAMINOPHEN 650 MG/SUPP.RECT RC PRN ×2 (01:26→15:48)
[2017-03-12] MEDS: ALBUTEROL FS 2.5 MG/0.5 ML VIAL.NEB NEB SCH ×4 (02:24→20:11)
[2017-03-12] MEDS: IPRATROPIUM NEB FS 0.5 MG/2.5 ML AMPUL.NEB NEB SCH ×4 (02:24→20:11)
[2017-03-12 04:00] VITALS: BP_SYST 107; BP_SYST 98; BP_DIAS 40; BP_DIAS 49
[2017-03-12] MEDS: MEROPENEM 500 MG in IV NS 0.9% 50 ML IV SCH ×2 (04:15→15:27)
[2017-03-12] MEDS: MIDODRINE HCL (5MG) 5 MG TABLET PO SCH ×3 (04:21→20:28)
[2017-03-12] MEDS: METOCLOPRAMIDE HCL 10 MG/10 ML UDC GT SCH ×4 (05:05→23:39)
[2017-03-12] MEDS: DIGOXIN INJ 0.5 MG/2 ML AMPUL IV SCH (05:06)
--- NOTE | 2017-03-12 07:00 | NUR ---
ORDER DISPATCHER CHIEF - NO CHANGES FROM INITIAL ASSESSMENT. PT. RESTING W/EYES CLOSED. EASILY AROUSABLE. PEG ONLY DRAINED MINIMUM OF 10 CC/HR. CARY UOP = 150CC/HR. COMPLETE BEDBATH ADM. AT 4AM W/ORAL,TRACH-VENT,JAMIE,PEG,SKIN/WOUND CARE ADM. CONT. POC. Addendum: 03/12/17 at 0754 by NIKIA ALAS RN AM VERBAL REPORT GIVEN TO WALKER VIERA
[2017-03-12 07:54] LABS: BASOPHILS % (AUTO) 0.3 % (0.0-2.0); EOSINOPHILS # (AUTO) 0.1 /CMM (0.0-0.7); EOSINOPHILS % (AUTO) 0.8 % (0.0-6.0); HEMATOCRIT 23 % (33-45); HEMOGLOBIN 7.7 g/dL (11.5-14.8); LYMPHOCYTES # (AUTO) 1.5 /CMM (0.8-4.8); LYMPHOCYTES % (AUTO) 9.8 % (20.0-44.0); MEAN CORPUSCULAR HEMOGLOBIN 33 PG (26.0-33.0); MEAN CORPUSCULAR HGB CONC 33 g/dl (31.0-36.0); MEAN CORPUSCULAR VOLUME 98 fL (82-100); MONOCYTES # (AUTO) 0.8 /CMM (0.1-1.30); MONOCYTES % (AUTO) 5.3 % (2.0-12.0); NEUTROPHILS # (AUTO) 12.5 /CMM (1.8-8.9); NEUTROPHILS % (AUTO) 83.8 % (43.0-81.0); PLATELET COUNT (AUTO) 144 /CMM (150-450); RDW COEFFICIENT OF VARIATION 19.8 (11.5-15.0); RED BLOOD CELL COUNT(AUTO) 2.37 MIL/uL (4.0-5.2); WHITE BLOOD COUNT (AUTO) 14.9 K/uL (4.3-11.0)
[2017-03-12 08:00] VITALS: BP_SYST 106; BP_SYST 108; BP_DIAS 43; BP_DIAS 53
[2017-03-12 08:08] LABS: CARBON DIOXIDE 27 mmol/L (21-32); CHLORIDE 107 mmol/L (98-107); CREATININE 2.3 mg/dL (0.6-1.3); GLUCOSE 100 mg/dL (74-106); MAGNESIUM 1.8 mg/dL (1.8-2.4); POTASSIUM 3.5 mmol/L (3.5-5.1); SODIUM SERUM 144 mmol/L (136-145); UREA NITROGEN, BLOOD 25 mg/dL (7-18)
[2017-03-12] MEDS: ACIDOPHILUS/BULGARICUS 1 EACH TAB.CHEW GT SCH ×2 (08:33→20:28)
[2017-03-12] MEDS: CALCITRIOL ORAL SOLUTION 1 MCG/ML GT SCH (08:33)
[2017-03-12] MEDS: VIT B CMPLX 3/FA/VIT C/BIOTIN 1 TAB TABLET GT SCH (08:33)
[2017-03-12] MEDS: ZINC SULFATE 220 MG CAPSULE PO SCH (08:33)
[2017-03-12] MEDS: PROSOURCE / PROSTAT (PYXIS) 30 ML UDC GT SCH (08:34)
[2017-03-12] MEDS: Z GUARD REMEDY 2 OZ OINT TP SCH (08:34)
[2017-03-12] MEDS: HYDROGEL DRESSING 90 GM TUBE TP SCH (08:34)
[2017-03-12] MEDS: MUPIROCIN OINT 2% 22 GM TUBE SCH ×2 (08:34→20:30)
[2017-03-12] MEDS: LEVETIRACETAM (500MG) 500 MG in IV NS 0.9% 100 ML IV SCH ×2 (10:16→21:32)
--- NOTE | 2017-03-12 10:27 | NUR ---
ADMINISTERED MIDODRINE EARLY D/T DIALYSIS COMMENCING AND RISK FOR HYPOTENSION.
[2017-03-12 12:00] VITALS: BP 121/55
--- NOTE | 2017-03-12 12:00 | NUR ---
seen by dr. anderson with verbal order to d/c klein catheter. urine output <30ml/hr. f/c d/mike.
[2017-03-12] MEDS ORDERED: DILTIAZEM HCL 25 MG IV IV ONE (14:30)
[2017-03-12] MEDS ORDERED: EPOETIN ALFA (10,000 UNIT) 10,000 UNIT/ML VIAL SQ ONE (15:00)
[2017-03-12 16:00] VITALS: BP 98/40
[2017-03-12] MEDS: FLUCONAZOLE IN NS,PREMIX 400 MG in PREMIX 1 EA IV SCH ×2 (17:51)
--- NOTE | 2017-03-12 18:18 | NUR ---
rn note temp now 99.7 and HR 90-105. patient denies pain, denies discomfort. Son at bed side.
[2017-03-12] MEDS: IV D5/0.45 NACL 1,000 ML IV PRN (19:18)
--- NOTE | 2017-03-12 19:29 | NUR ---
rn note handed off report to night nurse at bed side.
[2017-03-12 20:00] VITALS: BP 87/36
--- NOTE | 2017-03-12 20:00 | NUR ---
CU RN - REC'D PT IN POSITION. ONLY UNDERSTANDS ENGLISH-NO VIETNAMESE. PT. CAN MOUTH WORDS ONLY & WILL NOD HEAD "YES OR NO" TO QUESTIONS ASKED. PT.IS S/P MAJOR ABD. SURGERY/NEW PEG PLACEMENT, DRESSING INTACT. ISOLATION-MRSA NARES. AFEBRILE, HAD SOME EPISODES OF PAROXYSMAL AFIB CARDIZEM GIVEN BY PREVIOUS SHIFT, HD CATH TO RT.C/W. DIALYZED TODAY BUT NO OUTPUT. . LEFT WRIST & RT.HAND 22G PIV'S ARE PATENT TO FLUSH. D51/2 NS ONGOING AT 40 ML/HR. SEEN AND EXAMINED BY ID, KEEP MONITORING.
[2017-03-13] VITALS: BP 91/37
[2017-03-13] MEDS: ALBUTEROL FS 2.5 MG/0.5 ML VIAL.NEB NEB SCH ×4 (01:40→19:56)
[2017-03-13] MEDS: IPRATROPIUM NEB FS 0.5 MG/2.5 ML AMPUL.NEB NEB SCH ×4 (01:40→19:56)
[2017-03-13 04:00] VITALS: BP_SYST 89; BP_SYST 90; BP_DIAS 42
[2017-03-13] MEDS: MEROPENEM 500 MG in IV NS 0.9% 50 ML IV SCH ×2 (04:15→16:34)
[2017-03-13] MEDS: MIDODRINE HCL (5MG) 5 MG TABLET PO SCH ×3 (05:34→21:00)
[2017-03-13] MEDS: METOCLOPRAMIDE HCL 10 MG/10 ML UDC GT SCH ×3 (05:35→17:24)
--- NOTE | 2017-03-13 06:03 | NUR ---
FINANCIAL ECONOMIST: COMPLETE BED BATH GIVEN. LARGE AMOUNT OF LEAKAGE AT THE ABDOMINAL WOUND HOLE, LAYERS OF DRESSING APPLIED. BP STABLE. STRAIGHT CATH INSERTED FOR OBTAIN URINE SAMPLE BUT NO URINE CAME OUT. WILL ENDORSE TO NEXT SHIFT.
[2017-03-13 07:11] LABS: BASOPHILS % (AUTO) 0.2 % (0.0-2.0); EOSINOPHILS # (AUTO) 0.1 /CMM (0.0-0.7); EOSINOPHILS % (AUTO) 0.5 % (0.0-6.0); HEMATOCRIT 23 % (33-45); HEMOGLOBIN 7.5 g/dL (11.5-14.8); LYMPHOCYTES # (AUTO) 1.9 /CMM (0.8-4.8); MEAN CORPUSCULAR HEMOGLOBIN 32 PG (26.0-33.0); MEAN CORPUSCULAR HGB CONC 33 g/dl (31.0-36.0); MEAN CORPUSCULAR VOLUME 99 fL (82-100); MONOCYTES # (AUTO) 0.6 /CMM (0.1-1.30); MONOCYTES % (AUTO) 3.4 % (2.0-12.0); NEUTROPHILS # (AUTO) 16.2 /CMM (1.8-8.9); NEUTROPHILS % (AUTO) 85.9 % (43.0-81.0); PLATELET COUNT (AUTO) 140 /CMM (150-450); RDW COEFFICIENT OF VARIATION 19.8 (11.5-15.0); RED BLOOD CELL COUNT(AUTO) 2.33 MIL/uL (4.0-5.2); WHITE BLOOD COUNT (AUTO) 18.8 K/uL (4.3-11.0)
[2017-03-13 07:55] LABS: CARBON DIOXIDE 29 mmol/L (21-32); CHLORIDE 105 mmol/L (98-107); GLUCOSE 82 mg/dL (74-106); MAGNESIUM 1.6 mg/dL (1.8-2.4); PHOSPHORUS 3.3 mg/dL (2.5-4.9); POTASSIUM 3.1 mmol/L (3.5-5.1); SODIUM SERUM 141 mmol/L (136-145); UREA NITROGEN, BLOOD 21 mg/dL (7-18)
[2017-03-13 08:00] VITALS: BP 96/32
--- NOTE | 2017-03-13 08:00 | NUR ---
WHITNEY/RN INITIAL NOTES,AM RECEIVED REPORT FROM NIGHT NURSE FOR CONTINUATION OF CARE. PT ON VENT SETTINGS ORDERED BY MD, NO ACUTE DISTRESS NOTED. TRACH SITE CLEAN AND DRY. PT CONTROLLED A.FIB ON TELE, HE 66. PT ALERT, FOLLOWS COMMANDS, LETHARGIC. BP NOTED TO BE ON LOWER SIDE, WILL CONTINUOUSLY MONITOR. PT CURRENTLY NPO EXCEPT MEDS. PT AFEBRILE, ALL NEEDS WILL BE ATTENDED TO, TURNED AND REPOSITIONED, SAFETY MEASURES TAKEN, BED IN LOW POSITION, SIDE RAILS UP, CALL LIGHT WITHIN REACH. WILL CONTINUE CARE.
[2017-03-13] MEDS: VIT B CMPLX 3/FA/VIT C/BIOTIN 1 TAB TABLET GT SCH (09:00)
[2017-03-13] MEDS: LEVETIRACETAM SOL (5 ML) 100 MG/ML UDC GT SCH ×2 (09:00→21:00)
[2017-03-13] MEDS: ZINC SULFATE 220 MG CAPSULE PO SCH (09:00)
[2017-03-13] MEDS: ACIDOPHILUS/BULGARICUS 1 EACH TAB.CHEW GT SCH ×2 (09:00→21:00)
[2017-03-13] MEDS: PROSOURCE / PROSTAT (PYXIS) 30 ML UDC GT SCH (09:00)
[2017-03-13] MEDS: CALCITRIOL ORAL SOLUTION 1 MCG/ML GT SCH (09:00)
[2017-03-13] MEDS: Z GUARD REMEDY 2 OZ OINT TP SCH (09:03)
[2017-03-13] MEDS: HYDROGEL DRESSING 90 GM TUBE TP SCH (09:03)
[2017-03-13] MEDS: MUPIROCIN OINT 2% 22 GM TUBE SCH ×2 (09:04→21:00)
--- NOTE | 2017-03-13 09:37 | NUR ---
WHITNEY/RN: BP NOTED LOW 81/34, RECHECKED, INFORMED ARTIFICIAL LEATHER CALENDER OPERATOR, NEW ONE TIME ORDER RECEIVED. WILL ADMIN AND CONTINUE TO ASSESS AND REASSESS
[2017-03-13] MEDS ORDERED: ALBUMIN 25% 12.5 GM/50 ML BOTTLE IV ONE (10:00)
[2017-03-13] MEDS ORDERED: MIDODRINE HCL (5MG) 5 MG TABLET PO ONE (10:00)
[2017-03-13] MEDS ORDERED: ALBUMIN 25% 25 GM in PREMIX 1 EA IV ONE (11:00)
[2017-03-13 12:00] VITALS: BP 86/30
--- NOTE | 2017-03-13 12:00 | NUR ---
WHITNEY/RN: PT SEEN AND ASSESSED. INFORMED MD OF LOW BP. RECEIVED ORDERS FOR BOLUS. WILL ADMIN. IF SBP >85 WILL GIVE SECOND BOLUS OF 500ML AND ANOTHER DOSE OF ALBUMIN FOR BP SUPPORT. WILL CONTINUE TO MONITOR.
[2017-03-13] MEDS ORDERED: POTASSIUM CL. PREMIX PERIPHER. 50 ML IV SCH (12:30)
[2017-03-13] MEDS ORDERED: IV NS 0.9% 500 ML IV ONE (13:00)
[2017-03-13] MEDS: IV D5/0.45 NACL 1,000 ML IV PRN (14:26)
--- NOTE | 2017-03-13 15:30 | NUR ---
WHITNEY/RN: PT SEEN AND ASSESSED MY , INFORMED MD OF DRAINING OLD GTUBE SITE. NO NEW ORDERS RECEIVED AT THIS TIME. WILL CONTINUE TO MONITOR AND ASSESS. SKIN/WOUND CARE DONE ORDERED TO PROTECT THE SKIN.
[2017-03-13 16:00] VITALS: BP 111/50
--- NOTE | 2017-03-13 16:00 | NUR ---
ICU/RN: POST BOLUS AND MIDODRINE DOSEX2, BP STABLE, SBP >90. WILL CONTINUE TO MONITOR AND ASSESS
[2017-03-13] MEDS: FLUCONAZOLE IN NS,PREMIX 400 MG in PREMIX 1 EA IV SCH ×2 (17:25)
--- NOTE | 2017-03-13 18:44 | NUR ---
WHITNEY/RN ENDING NOTES,AM REPORT WILL BE ENDORSED TO NIGHT NURSE FOR CONTINUATION OF CARE. PT ON VENT SETTINGS ORDERED BY TYRELL VANCE, BP STABLE, WILL CONTINUE TO MONITOR. ALL NEEDS MET, SAFETY MEASURES TAKEN. BED IN LOW POSITION, SIDE RAILS UP, CALL LIGHT WITHIN REACH. SON OF PT AT BEDSIDE. OSTOMY BAG PLACED ON OLD GTUBE SITE, SERIOUS DRAINAGE NOTED. WILL CONTINUE CARE
--- NOTE | 2017-03-13 19:30 | NUR ---
RN NOTES RECEIVED PT ASLEEP WELL ON BED SON AT BEDSIDE. PT IS AOX 1-2 ABLE TO EXPRESS FEELINGS IN [place]OV[place] AND A LITTLE ROMANSH. BY MOUTHING WORDS AND CLAP FOR ASSISTANCE. WITH TRACH AND VENT SETTING TOLERATED ON TELE MONITOR REVEALS A-FIB SVR @ 54 AND DOWN TO 49 SATING 99%. NO ACUTE RESP DISTRESS. AFEBRILE GT CLAMPED NOTED WITH OPEN SKIN TEAR/ YELLOWISH WOUND AROUND THE SIDE OF GT STOMA. GURGLING SOUND HEARD TO CHECKED PATENCY, INTACT AND PATENT. ANOTHER SITE OF ABDOMEN NOTED WITH OPEN WOUND DRAINING WITH SEROSANGUINEOUS BLOOD EMPTIED ABOUT 800CC FLUIDS THAT LOOKS ASCITES. IS AWARE PER MORNING SHIFT DR. MELÉNDEZ WILL COME TO SEE THE PATIENT. IV SITE NOTED @ THE RIGHT HAND, AND RIGHT WRIST AND LEFT WRIST RUNNING WITH D5 1/2 NS @ 75 CC.HR INTACT AND PATENT. HD CATH ON RIGHT CHEST WALL IS CLEANED WITH DRESSING. SKIN CARE PROVIDED. KEPT CLEAN AND COMFORTABLE WILL CONTINUE TO MONITOR,.
[2017-03-13 20:00] VITALS: BP 115/42
[2017-03-14] VITALS: BP_SYST 115; BP_SYST 97; BP_DIAS 33; BP_DIAS 42
[2017-03-14] MEDS: METOCLOPRAMIDE HCL 10 MG/10 ML UDC GT SCH ×4 (01:19→18:03)
[2017-03-14] MEDS: IPRATROPIUM NEB FS 0.5 MG/2.5 ML AMPUL.NEB NEB SCH ×4 (01:47→20:00)
[2017-03-14] MEDS: ALBUTEROL FS 2.5 MG/0.5 ML VIAL.NEB NEB SCH ×4 (01:47→20:00)
--- NOTE | 2017-03-14 03:15 | NUR ---
RN NOTES S/E BY DR. HARLAN MELÉNDEZ. INFORMED AND UPDATED REGARDING PATIENT STATUS AND THE STOMA DRAINED WITH SEROSANGUINEOUS OUTPUT, PER MD IT IS ASCITIC FLUID. NO ORDER AT THIS TIME WILL CONTINUE TO MONITOR.
[2017-03-14 04:00] VITALS: BP 100/37
[2017-03-14] MEDS: MEROPENEM 500 MG in IV NS 0.9% 50 ML IV SCH ×2 (04:14→16:36)
[2017-03-14] MEDS: MIDODRINE HCL (5MG) 5 MG TABLET PO SCH ×3 (05:39→20:36)
[2017-03-14] MEDS: IV D5/0.45 NACL 1,000 ML IV PRN (06:04)
--- NOTE | 2017-03-14 06:58 | NUR ---
RN NOTES PT ASLEEP RESTING AT THIS TIME. TRACH AND VENT SETTING TOLERATED WELL. AFEBRILE. CONTINUE TO MONITOR LOW HR TELE MONITOR REVEALS A-FIB WITH BBB HR 61 LOWEST WAS 45 AND NO PACING. ASYMPTOMATIC. DENIES ANY PAIN. ANTERIOR ABDOMEN STOMA STILL LEAKING WITH SEROSANGUINEOUS COLOSTOMY BAG KEPT IN PLACED. MD AWARE. WILL CONTINUE TO MONITOR. WILL ENDORSED CONTINUITY OF CARE TO AM NURSE.
[2017-03-14 07:51] LABS: BASOPHILS # (AUTO) 0.1 /CMM (0.0-0.2); BASOPHILS % (AUTO) 0.5 % (0.0-2.0); EOSINOPHILS # (AUTO) 0.2 /CMM (0.0-0.7); EOSINOPHILS % (AUTO) 1.8 % (0.0-6.0); HEMATOCRIT 24 % (33-45); HEMOGLOBIN 7.8 g/dL (11.5-14.8); LYMPHOCYTES # (AUTO) 2.1 /CMM (0.8-4.8); LYMPHOCYTES % (AUTO) 15.2 % (20.0-44.0); MEAN CORPUSCULAR HEMOGLOBIN 32 PG (26.0-33.0); MEAN CORPUSCULAR HGB CONC 32 g/dl (31.0-36.0); MEAN CORPUSCULAR VOLUME 99 fL (82-100); MONOCYTES # (AUTO) 1.1 /CMM (0.1-1.30); MONOCYTES % (AUTO) 8.1 % (2.0-12.0); NEUTROPHILS # (AUTO) 10.2 /CMM (1.8-8.9); NEUTROPHILS % (AUTO) 74.4 % (43.0-81.0); PLATELET COUNT (AUTO) 161 /CMM (150-450); RDW COEFFICIENT OF VARIATION 19.7 (11.5-15.0); RED BLOOD CELL COUNT(AUTO) 2.46 MIL/uL (4.0-5.2); WHITE BLOOD COUNT (AUTO) 13.7 K/uL (4.3-11.0)
[2017-03-14 08:00] VITALS: BP 112/53
[2017-03-14 08:03] LABS: CALCIUM, SERUM 7.5 mg/dL (8.5-10.1); CARBON DIOXIDE 26 mmol/L (21-32); CHLORIDE 104 mmol/L (98-107); CREATININE 1.9 mg/dL (0.6-1.3); GLUCOSE 95 mg/dL (74-106); MAGNESIUM 1.6 mg/dL (1.8-2.4); PHOSPHORUS 4.1 mg/dL (2.5-4.9); POTASSIUM 3.2 mmol/L (3.5-5.1); SODIUM SERUM 138 mmol/L (136-145); UREA NITROGEN, BLOOD 25 mg/dL (7-18)
[2017-03-14] MEDS: CALCITRIOL ORAL SOLUTION 1 MCG/ML GT SCH (09:26)
[2017-03-14] MEDS: ACIDOPHILUS/BULGARICUS 1 EACH TAB.CHEW GT SCH ×2 (09:26→20:36)
[2017-03-14] MEDS: PROSOURCE / PROSTAT (PYXIS) 30 ML UDC GT SCH (09:26)
[2017-03-14] MEDS: VIT B CMPLX 3/FA/VIT C/BIOTIN 1 TAB TABLET GT SCH (09:26)
[2017-03-14] MEDS: ZINC SULFATE 220 MG CAPSULE PO SCH (09:26)
[2017-03-14] MEDS: LEVETIRACETAM SOL (5 ML) 100 MG/ML UDC GT SCH ×2 (09:26→20:36)
[2017-03-14 12:00] VITALS: BP 92/53
[2017-03-14] MEDS ORDERED: POTASSIUM CL. PREMIX PERIPHER. 50 ML IV SCH (12:30)
[2017-03-14] MEDS ORDERED: EPOETIN ALFA (10,000 UNIT) 10,000 UNIT/ML VIAL SQ ONE (12:30)
[2017-03-14] MEDS: HYDROGEL DRESSING 90 GM TUBE TP SCH (13:30)
[2017-03-14] MEDS: MUPIROCIN OINT 2% 22 GM TUBE SCH ×2 (13:31→20:38)
[2017-03-14] MEDS: Z GUARD REMEDY 2 OZ OINT TP SCH (13:31)
[2017-03-14 16:00] VITALS: BP 109/42
--- NOTE | 2017-03-14 17:00 | NUR ---
RN NOTE SPOKE WITH DR GISELLA MELÉNDEZ REGARDING THE TUBE FEEDING FOR PT. HE SAID IT IS OKAY TO START. WILL CARRY OUT THE ORDER.
[2017-03-14] MEDS: FLUCONAZOLE IN NS,PREMIX 400 MG in PREMIX 1 EA IV SCH ×2 (18:02)
[2017-03-14] MEDS: ACETAMINOPHEN 650 MG/SUPP.RECT RC PRN (18:03)
--- NOTE | 2017-03-14 19:20 | NUR ---
RN NOTES PT ASLEEP WELL ON BED DAUGHTER AT BEDSIDE. TRACH AND VENT SETTING TOLERATED WELL ORDERED. SATING 99% NO ACUTE RESP DISTRESS. COMPLAINED OF ABDOMINAL PAIN BUT TOLERATED AT THIS TIME. A-FIB WITH BBB HR 62 ON TELE MONITOR. IV SITE ON RIGHT HAND G 20 RUNNING WITH D51/2 NS @ 75 CC/HR INTACT AND PATENT. RIGHT WRIST G 22 IS NOT WORKING. RIGHT CHEST WALL HD CATH CLEANED AND DRY. GT SITE INTACT WITH POSITIVE GURGLING SOUND. PER MD TO START NOVASOURCE STARTED MD ORDER WITH HOB ELEVATED. ABDOMINAL STOMA STILL WITH COLOSTOMY BAG NO DRAIN AT THIS TIME. PT REPOSITIONED COMFORTABLE. KEPT CLEAN AND DRY. WILL CONTINUE TO MONITOR,.
[2017-03-14 20:00] VITALS: BP 103/40
[2017-03-14] MEDS: RENAL NOVASOURCE 1,000 ML BOTTLE GT PRN (20:21)
[2017-03-15] VITALS (8 sets, daily range): BP systolic 86–144; BP diastolic 32–44
[2017-03-15] MEDS: METOCLOPRAMIDE HCL 10 MG/10 ML UDC GT SCH ×5 (00:10→23:28)
[2017-03-15] MEDS: IV D5/0.45 NACL 1,000 ML IV PRN (00:58)
[2017-03-15] MEDS: IPRATROPIUM NEB FS 0.5 MG/2.5 ML AMPUL.NEB NEB SCH ×4 (02:00→20:02)
[2017-03-15] MEDS: ALBUTEROL FS 2.5 MG/0.5 ML VIAL.NEB NEB SCH ×4 (02:00→20:02)
[2017-03-15] MEDS: MEROPENEM 500 MG in IV NS 0.9% 50 ML IV SCH ×2 (04:34→16:52)
[2017-03-15] MEDS: MIDODRINE HCL (5MG) 5 MG TABLET PO SCH ×3 (04:35→20:25)
[2017-03-15] MEDS: DIGOXIN INJ 0.5 MG/2 ML AMPUL IV SCH (05:11)
--- NOTE | 2017-03-15 07:05 | NUR ---
RN NOTES PATIENT ASLEEP AT THIS TIME. AFEBRILE. VS STILL IN A LOW SIDE. LOWEST SBP IS 86 TOLERATED WELL ASYMPTOMATIC. INCONTINENT CARE RENDERED. GTF TOLERATED WELL RATE 50 CC/HR. STOMA FROM OTHER SIDE DRAINED WITH ASCITIC FLUID 500 CC. REPOSISTIONED PT COMFORTABLE. COMPLAINING OF PAIN UPON REPOSITIONING BUT REFUSED TO TAKE PAIN MEDICINE. ALL DUE MEDICINE GIVEN ORDERED NO ASE . ENDORSED CONTINUTIY FOC ARE TO AM NURSE.
--- NOTE | 2017-03-15 07:43 | NUR ---
RN NOTES RECEIVED PT FROM MOLECULAR PHYSICIST IN STABLE CONDITION CHRONIC VENT/TRACH DEPENDENT, NONVERBAL, TOLERATING VENT SETTINGS NO SOB OR DISTRESS NOTED. DAUGHTER AT BEDSIDE. A FIB ON THE TELE MONITOR HR 60. TRUDY 22 GAUGE RUNNING AT 75ML/HR. GTF AT 50ML/HR. BED LOCKED AND IN LOWEST POSITION, SIDE RAILS UPX3, CALL LIGHT WITHIN REACH, WILL CONT TO MONITOR.
--- NOTE | 2017-03-15 09:23 | NUR ---
RN NOTES HD STOPPED DUE TO HR IN 140S, HD NURSE NOTIFIED DR ARMAS, PER MD TO NOTIFY CARDIOLOGY IF HR DOES NOT GO DOWN AFTER HD IS STOPPED.
[2017-03-15] MEDS: CALCITRIOL ORAL SOLUTION 1 MCG/ML GT SCH (09:38)
[2017-03-15] MEDS: LEVETIRACETAM SOL (5 ML) 100 MG/ML UDC GT SCH ×2 (09:38→20:24)
[2017-03-15] MEDS: ACIDOPHILUS/BULGARICUS 1 EACH TAB.CHEW GT SCH ×2 (09:38→20:24)
[2017-03-15] MEDS: ACETAMINOPHEN 650 MG/SUPP.RECT RC PRN (09:38)
[2017-03-15] MEDS: MUPIROCIN OINT 2% 22 GM TUBE SCH ×2 (09:39→20:38)
[2017-03-15] MEDS: Z GUARD REMEDY 2 OZ OINT TP SCH (09:39)
[2017-03-15] MEDS: ZINC SULFATE 220 MG CAPSULE PO SCH (09:39)
[2017-03-15] MEDS: HYDROGEL DRESSING 90 GM TUBE TP SCH (09:39)
[2017-03-15] MEDS: VIT B CMPLX 3/FA/VIT C/BIOTIN 1 TAB TABLET GT SCH (09:39)
[2017-03-15] MEDS: PROSOURCE / PROSTAT (PYXIS) 30 ML UDC GT SCH (09:40)
--- NOTE | 2017-03-15 10:08 | NUR ---
RN NOTES DR HAND PAGED 2X REGARDING RAPID AFIB HR 140S-150S
--- NOTE | 2017-03-15 10:39 | NUR ---
RN NOTES SPOKE WITH DR MOYA REGARDING RAPID AFIB, PER MD ORDERS JUST MONITOR, WILL SEE PT IN AFTERNOON. WILL CONT TO MONITOR.
--- NOTE | 2017-03-15 11:00 | NUR ---
RN NOTES PT HAS A TEMP OF 101.2, STILL IN UNCONTROLLED AFIB HR 160S, PT IN NO DISTRESS, SATING FINE TOLERATING VENT SETTINGS. COOLING MEASURES APPLIED, COOLING BLANKET ORDERED.
[2017-03-15 11:56] LABS: BASOPHILS % (AUTO) 0.2 % (0.0-2.0); EOSINOPHILS # (AUTO) 0.1 /CMM (0.0-0.7); EOSINOPHILS % (AUTO) 0.5 % (0.0-6.0); HEMATOCRIT 27 % (33-45); HEMOGLOBIN 8.4 g/dL (11.5-14.8); LYMPHOCYTES % (AUTO) 9.9 % (20.0-44.0); MEAN CORPUSCULAR HEMOGLOBIN 32 PG (26.0-33.0); MEAN CORPUSCULAR HGB CONC 32 g/dl (31.0-36.0); MEAN CORPUSCULAR VOLUME 100 fL (82-100); MONOCYTES # (AUTO) 0.3 /CMM (0.1-1.30); MONOCYTES % (AUTO) 3.4 % (2.0-12.0); NEUTROPHILS # (AUTO) 8.8 /CMM (1.8-8.9); PLATELET COUNT (AUTO) 150 /CMM (150-450); RDW COEFFICIENT OF VARIATION 19.8 (11.5-15.0); RED BLOOD CELL COUNT(AUTO) 2.65 MIL/uL (4.0-5.2); WHITE BLOOD COUNT (AUTO) 10.2 K/uL (4.3-11.0)
[2017-03-15 12:00] LABS: CALCIUM, SERUM 7.5 mg/dL (8.5-10.1); CARBON DIOXIDE 25 mmol/L (21-32); CHLORIDE 99 mmol/L (98-107); CREATININE 1.5 mg/dL (0.6-1.3); GLUCOSE 112 mg/dL (74-106); MAGNESIUM 1.4 mg/dL (1.8-2.4); POTASSIUM 4.1 mmol/L (3.5-5.1); SODIUM SERUM 134 mmol/L (136-145); UREA NITROGEN, BLOOD 25 mg/dL (7-18)
--- NOTE | 2017-03-15 12:15 | NUR ---
RN NOTES RESP THERAPIST CALLED, PT HR STILL 160S, FEVER OF 102, DESATING 80S.
[2017-03-15] MEDS: Magnesium 1GM/D5W 100ML PREMIX 100 ML IV SCH ×2 (12:24→15:07)
[2017-03-15] MEDS ORDERED: DILTIAZEM HCL 25 MG IV IV ONE (12:30)
[2017-03-15] MEDS ORDERED: DILTIAZEM HCL 50 MG IV IV ONE (12:30)
--- NOTE | 2017-03-15 13:30 | NUR ---
RN NOTES CARDIZEM GIVEN TO PT, HR IN 110-120S.
[2017-03-15] MEDS ORDERED: ONDANSETRON 4 MG TAB.RAPDIS PO ONE (14:00)
[2017-03-15 14:46] LABS: BAND % (MANUAL) 2 % (0.0-5.0); EOSINOPHILS % (MANUAL) 2 % (0-4); LYMPHOCYTES % (MANUAL) 10 % (16-48); MONOCYTES % (MANUAL) 5 % (0-11.0); NEUTROPHILS % (MANUAL) 81 (42-76)
[2017-03-15] MEDS: FLUCONAZOLE IN NS,PREMIX 400 MG in PREMIX 1 EA IV SCH ×2 (18:13)
--- NOTE | 2017-03-15 18:30 | NUR ---
RN NOTES PT RESTING IN BED, FEVER OF 100, COOLING MEASURES STILL APPLIED WITH COOLING BLANKET. HEART RATE LOWER 110. PT HAD ONE EPISODE OF VOMITING, ZOFRAN ADMINISTERED, TUBE FEEDING HELD. TUBE FEEDING RESTARTED 1HR LATER AT LOWER RATE OF 30. NO FURTHER VOMITING. WOUND CULTURE SENT TO LAB FROM ABDOMEN FLUID. BED LOCKED AND IN LOWEST POSITION, SIDE RAILS UPX3, CALL LIGHT WITHIN REACH, WILL ENDORSE TO ONCOMING SHIFT.
--- NOTE | 2017-03-15 19:05 | NUR ---
RN OPENING NOTES RECEIVED REPORT FROM MARKUS VIERA. PATIENT A/A/O X2, NON-VERBAL BUT RESPONSIVE TO VERBAL & TACTILE STIMULI. TRACH INTACT W/ VENT SETTINGS AC 14, TV 500, FIO2 40%, TOLERATING WELL. ON TELE A-FIB IN THE 80S. NO DISTRESS NOTED. RIGHT CHEST WALL HD CATH INTACT W/ DRESSING CDI & RIGHT UPPER ARM IV #22 INTACT & PATENT W/ DRESSING CDI & IVF D5 1/2 NS @ 75 ML/HR. G-TUBE PATENT & FLUSHING WELL. GTF FIBERSOURCE @ 30 ML/HR, NO RESIDUAL NOTED @ THIS TIME. NO S/S OF PAIN OR DISCOMFORT @ THIS TIME. SAFETY MEASURES IN PLACE W/ SIDE RAILS UP, BED LOCKED IN LOWEST POSITION & CALL LIGHT WITHIN REACH. CONTACT ISOLATION IN PLACE. WILL CONTINUE TO MONITOR.
[2017-03-15 19:14] LABS: APPEARANCE,URINE CLOUDY (CLEAR); BILIRUBIN,URINE 1+ (NEGATIVE); BLOOD, URINE 3+ Ery/uL (NEGATIVE); COLOR,URINE YELLOW (YELLOW); KETONES,URINE NEGATIVE (NEGATIVE); LEUKOCYTE ESTERASE ,URINE NEGATIVE (NEGATIVE); NITRITE, URINE NEGATIVE (NEGATIVE); PH,URINE 7.5 (5.0-8.0); PROTEIN,URINE 3+ mg/dl (NEGATIVE); UGLUCOSE TRACE mg/dL (NEGATIVE); UROBILINOGEN,URINE 0.2 EU/dL (0.2)
[2017-03-15 19:21] LABS: BACTERIA,URINE Few /HPF (None Seen); SQUAMOUS EPITHELIAL CELL,UR Few /HPF (None Seen); URINE AMORPHOUS PHOSPHATES Moderate /HPF (None Seen); WBC,URINE TOO NUMEROUS TO COUN /HPF (0-3)
[2017-03-15 19:23] LABS: RBC,URINE 21-50 /HPF (0-2)
[2017-03-16] VITALS (9 sets, daily range): BP systolic 75–109; BP diastolic 27–81
[2017-03-16] MEDS: IPRATROPIUM NEB FS 0.5 MG/2.5 ML AMPUL.NEB NEB SCH ×4 (01:57→19:47)
[2017-03-16] MEDS: ALBUTEROL FS 2.5 MG/0.5 ML VIAL.NEB NEB SCH ×4 (01:58→19:47)
[2017-03-16] MEDS: IV D5/0.45 NACL 1,000 ML IV PRN (02:01)
[2017-03-16] MEDS: MEROPENEM 500 MG in IV NS 0.9% 50 ML IV SCH ×2 (03:38→15:30)
[2017-03-16] MEDS: RENAL NOVASOURCE 1,000 ML BOTTLE GT PRN (04:34)
[2017-03-16] MEDS: MIDODRINE HCL (5MG) 5 MG TABLET PO SCH ×3 (04:35→21:33)
[2017-03-16] MEDS: METOCLOPRAMIDE HCL 10 MG/10 ML UDC GT SCH ×3 (05:37→17:11)
[2017-03-16 06:35] LABS: BASOPHILS % (AUTO) 0.2 % (0.0-2.0); EOSINOPHILS # (AUTO) 0.1 /CMM (0.0-0.7); EOSINOPHILS % (AUTO) 0.3 % (0.0-6.0); HEMATOCRIT 23 % (33-45); HEMOGLOBIN 7.5 g/dL (11.5-14.8); LYMPHOCYTES # (AUTO) 1.9 /CMM (0.8-4.8); LYMPHOCYTES % (AUTO) 8.3 % (20.0-44.0); MEAN CORPUSCULAR HEMOGLOBIN 32 PG (26.0-33.0); MEAN CORPUSCULAR HGB CONC 32 g/dl (31.0-36.0); MEAN CORPUSCULAR VOLUME 99 fL (82-100); MONOCYTES % (AUTO) 4.5 % (2.0-12.0); NEUTROPHILS # (AUTO) 20.3 /CMM (1.8-8.9); NEUTROPHILS % (AUTO) 86.7 % (43.0-81.0); PLATELET COUNT (AUTO) 126 /CMM (150-450); RDW COEFFICIENT OF VARIATION 20.1 (11.5-15.0); RED BLOOD CELL COUNT(AUTO) 2.36 MIL/uL (4.0-5.2); WHITE BLOOD COUNT (AUTO) 23.4 K/uL (4.3-11.0)
[2017-03-16 07:00] LABS: INR 1.58 (0.87-1.13); PROTHROMBIN TIME 16.5 SECS (9.5-12.7)
[2017-03-16 07:01] LABS: CALCIUM, SERUM 7.5 mg/dL (8.5-10.1); CARBON DIOXIDE 27 mmol/L (21-32); CHLORIDE 99 mmol/L (98-107); GLUCOSE 121 mg/dL (74-106); MAGNESIUM 2.1 mg/dL (1.8-2.4); PHOSPHORUS 2.8 mg/dL (2.5-4.9); POTASSIUM 3.3 mmol/L (3.5-5.1); SODIUM SERUM 133 mmol/L (136-145); UREA NITROGEN, BLOOD 32 mg/dL (7-18)
--- NOTE | 2017-03-16 07:15 | NUR ---
RN NOTES RECEIVED PATIENT AOX2 LUXEMBOURGISH SPEAKING , MOUTHING WORDS NOT IN ACUTE DISTRESS , RESPIRATIONS EVEN AND UNLABORED WITH SPO2 OF 100% VIA MECHANICAL VENTILATOR SETTING ORDERED , AFIB 85 ON TELE MONITOR , GCF DRAINING WITH CLOUDY YELLOW OUTPUT , GT PATENT AND INTACT WITH FIBERSOURCE @ 30ML/HR NOTED WITH 350ML RESIDUALS GT FEEDING HELD , R CHEST HD CATH C/D/I , TRUDY # 22 PATENT AND INTACT WITH D5 1/2 NS @ 75ML/HR INFUSING WELL , HOB @ 35 , WILL CONTINUE TO MONITOR
[2017-03-16] MEDS: HYDROGEL DRESSING 90 GM TUBE TP SCH (08:18)
[2017-03-16] MEDS: Z GUARD REMEDY 2 OZ OINT TP SCH (08:18)
[2017-03-16] MEDS: MUPIROCIN OINT 2% 22 GM TUBE SCH ×2 (08:19→21:57)
[2017-03-16] MEDS: LEVETIRACETAM SOL (5 ML) 100 MG/ML UDC GT SCH ×2 (08:19→21:33)
[2017-03-16] MEDS: PROSOURCE / PROSTAT (PYXIS) 30 ML UDC GT SCH (08:19)
[2017-03-16] MEDS: ACIDOPHILUS/BULGARICUS 1 EACH TAB.CHEW GT SCH ×2 (08:19→21:33)
[2017-03-16] MEDS: CALCITRIOL ORAL SOLUTION 1 MCG/ML GT SCH (08:19)
[2017-03-16] MEDS: VIT B CMPLX 3/FA/VIT C/BIOTIN 1 TAB TABLET GT SCH (08:19)
[2017-03-16] MEDS: ZINC SULFATE 220 MG CAPSULE PO SCH (08:19)
[2017-03-16 10:00] LABS: BAND % (MANUAL) 4 % (0.0-5.0); EOSINOPHILS % (MANUAL) 1 % (0-4); LYMPHOCYTES % (MANUAL) 10 % (16-48); MONOCYTES % (MANUAL) 4 % (0-11.0); NEUTROPHILS % (MANUAL) 81 (42-76)
--- NOTE | 2017-03-16 10:00 | NUR ---
RN NOTES GT FEEDING OF FIBERSOURCE @ 30ML/RH RE STARTED , NO RESIDUALS NOTED , WILL CONTINUE TO MONITOR
--- NOTE | 2017-03-16 11:22 | NUR ---
RN NOTES SEEN AND EVALUATED BY DR MELÉNDEZ , DISCUSSED LABS , PT ON GT FEEDING OF FIBERSOURCE @ 30ML/HR , NOTED WITH 350 CC RESIDUALS @ 0800 , FEEDING RESTARTED @ 1000 , PT IS RECEIVING D5 1/2 NS @ 75ML/HR , VERIFIED WITH DR MELÉNDEZ IF HE WANTS TO CONTINUE IVF , PER MD DIETZ IVF , ORDERS CARRIED OUT
--- NOTE | 2017-03-16 11:38 | NUR ---
RN NOTES AM LABS ORDER CARRIED OUT , RECEIVED A TELEPHONE ORDER UNDER DR MELÉNEDZ ,
[2017-03-16] MEDS: METOCLOPRAMIDE HCL 10 MG TABLET PO SCH ×2 (11:56→17:11)
--- NOTE | 2017-03-16 12:02 | NUR ---
RN NOTES BP OF 84/41 , HR 81 , MIDODRINE GIVEN SCHEDULED , WILL RE ASSESS BP AFTER 15-30 MINUTES .
[2017-03-16] MEDS: ALBUMIN 25% 25 GM in PREMIX 1 EA IV PRN (13:10)
--- NOTE | 2017-03-16 13:10 | NUR ---
RN NOTES PT STABLE PRIOR TO HD , DENIES SOB AND DISCOMFORT , SPO2 OF 100% VIA MECHANICAL VENTILATOR SETTING ORDERED , TEM OF 98.9 , BP OF 83/14 , ALBUMIN GIVEN BY HD NURSE , HD CATHETER BLOOD CULTURE OBTAINED AND SET TO LAB , DISCUSSED WITH HD NURSE THE VITAL SIGNS AND LABS , WILL CONTINUE TO MONITOR
--- NOTE | 2017-03-16 14:30 | NUR ---
RN NOTES SPOKE WITH CJ LINTON , NOTIFIED PT HAS HIGH GT FEEDING RESIDUALS @ 0800 350ML NOTED , RESUME FEEDING @ 1000 WITH NO REISUDALS NOTED , GCF DRAINING WITH 600ML OF CLOUDY YELLOW OUTPUT , DISCUSSED LABS , HD STOPPED DUE TO HR OF 120'S .
--- NOTE | 2017-03-16 14:34 | NUR ---
RN NOTES HD STOPPED PT HR GOES UP TO 120'S , NO OUTPUT NOTED , BP OF 90/28 , HR OF 121 , TEMP OF 98.7 , RR OF 18 , WILL CONTINUE TO MONITOR
[2017-03-16] MEDS: ACETAMINOPHEN 650 MG/20.3 ML UDC GT PRN (15:44)
--- NOTE | 2017-03-16 15:50 | NUR ---
RN NOTES PAGED DR MOYA , REGARDING PT HR OF 130-155 AFIB UNCONTROLLED S/P DIALYSIS , PT IS AFEBRILE BP OF 82/22 , RR OF 18 PT IS COMPLAINING OF PALPITATIONS AWATING FOR CALL BACK Addendum: 03/16/17 at 1553 by FLOYD YOUNG RN SPOKE WITH EMERY LEMUS MESSAGE
--- NOTE | 2017-03-16 16:06 | NUR ---
RN NOTES NOTIFIED DR RIKA ZHENG PT HR OF 150-160'S UNCONTROLLED AFIB S/P HD ,PT IS AFEBRILE 98.5F , BP OF 80/31 , RR 18 , PER MD GIVE PT NS 500BOLUS X1 , ORDERS CARRIED OUT
--- NOTE | 2017-03-16 16:16 | NUR ---
RN NOTES PAGED DR MOYA AGAIN , PER ALLAN VANCE IS AWARE REGARDING PT HR OF 150-160'S UNCONTROLLED AFIB , PER MD HE WILL SEE THE PATIENT NOW
[2017-03-16] MEDS ORDERED: IV NS 0.9% 500 ML IV ONE (16:30)
--- NOTE | 2017-03-16 17:00 | NUR ---
RN NOTES SEEN AND EVALUATED BY DR MOYA , NOTIFIED PT HR OF AFIB 130-160'S UNCONTROLLED S/P HD , NO FLUIDS OUT , PT IS AFEBRILE , BP OF 97/81 , 500NS BOLUS GIVEN PER DR MELÉNDEZ'S ORDER , MD AWARE , NO NEW ORDERS RECEIVED
[2017-03-16] MEDS: FLUCONAZOLE IN NS,PREMIX 400 MG in PREMIX 1 EA IV SCH ×2 (17:11)
[2017-03-16] MEDS ORDERED: FEE PK DOSING 1 MIN EA MC ONE (17:16)
[2017-03-16] MEDS ORDERED: VANCOMYCIN 1 GM in IV D5W 250 ML IV ONE (18:00)
--- NOTE | 2017-03-16 18:00 | NUR ---
RN NOTES STARTED PT ON COOLING BLANKET PT TEMP IS 102.5F VIA RECTAL , TYLENOL GIVEN ORDERED , WILL CONTINUE TO MONITOR .
--- NOTE | 2017-03-16 19:15 | NUR ---
RN NOTES RECEIVED PT AWAKE ON BED WITH FAMILY AT BEDSIDE. PT IS AOX2 ABLE TO EXPRESSED FEELINGS AND MOUTH WORDS TO ANSWER QUESTION IN [place] LANGUAGE. NO ACUTE RESP DISTRESS. DENIES PAIN. WITH TRACH CONNECTED TO VENT, VENT SETTING TOLERATED WELL. SATING 100%. BILATERAL BREATH SOUND DIMINISHED. S UCTIONED WITH WHITISH SMALL SECRETION. ON TELE MONITOR REVEALS A-FIB WITH BBB HR 85. GTF FIBERSOURCE @ 30 CC/HR ONGOING WITH RESIDUAL OF 20 CC. INTACT PATENCY CHECKED. IV SITE ON TRUDY G 22 WITH REDNESS ON THE SIDE FLUSHED WITH NS AND CHECK BLOOD RETURN ANS RFA G 20 REMAINED INTACT AND PATENT. RIGHT CHEST WALL HSD CATH WITH DRESSING CLEAN AND DRY. COOLING BLANKET KEPT IN PLACE DUE TO TEMP 101.1 FROM THE MACHINE. OFFLOADED EXT WITH PILLOWS. WILL LYLAQ. MONITOR.
[2017-03-16] MEDS: VANCOMYCIN HCL 125 MG/2.5 ML ORAL.SUSP PO SCH (21:33)
[2017-03-16] MEDS ORDERED: MUPIROCIN OINT 2% 22 GM TUBE ONE (22:03)
--- NOTE | 2017-03-16 22:26 | NUR ---
RN NOTES WHILE GIVING MEDICINE GT RESIDUAL CHECKED NOTED WITH 100 CC FOR 2 HOURS. HELD GTF AND WILL RECHECKED AGAIN AFTER 2 HOURS. DUE MEDICINE GIVEN ORDERED.
--- NOTE | 2017-03-16 22:28 | NUR ---
RN NOTES TEMP DOWN AT 99 DEG F. AT THIS TIME VIA ORAL AND RECTAL. WILL CONTINUE TO MONITOR.
[2017-03-17] VITALS (10 sets, daily range): BP systolic 76–97; BP diastolic 38–58
--- NOTE | 2017-03-17 00:25 | NUR ---
RN NOTES RESIDUAL RECHECKED WHILE GTF HELD FOR 2 HOURS. WITH RESIDUAL OF 280 CC CONTINUE TO HOLD FEEDING MEDICINE REGLAN ROUTINE GIVEN ORDERED. WILL RECHECKED AGAIN FOR 2 HOURS.
[2017-03-17] MEDS: METOCLOPRAMIDE HCL 10 MG TABLET PO SCH ×2 (00:30→05:00)
[2017-03-17] MEDS: METOCLOPRAMIDE HCL 10 MG/10 ML UDC GT SCH ×5 (00:30→23:33)
--- NOTE | 2017-03-17 00:55 | NUR ---
RN NOTES TEMPERATURE AT THIS TIME FROM RECTAL 99 DEG FAHRENHEIT ORAL 98.2 DEG FAHRENHEIT BUT BLOOD PRESSURE STILL IN LOW SIDE LAST BP TAKEN 0000 76/ 39. PT ASLEEP WELL AT THIS TIME RESPONSIVE TO TACTILE AND VERBAL STIMULI. ASYMPTOMATIC AT THIS TIME. DENIES PAIN
[2017-03-17] MEDS: ALBUTEROL FS 2.5 MG/0.5 ML VIAL.NEB NEB SCH ×4 (01:43→19:45)
[2017-03-17] MEDS: IPRATROPIUM NEB FS 0.5 MG/2.5 ML AMPUL.NEB NEB SCH ×4 (01:43→19:45)
--- NOTE | 2017-03-17 02:00 | NUR ---
RN NOTES PT ASLEEP WELL ON BED. RECHECKED RESIDUAL NOTED WITH 60 CC STARTED FEEDING AT 30 CC/HR WILL CONTINUE TO MONITOR. TEMPERATURE AT THIS TIME WAS T- 97.9 RECTAL BY ORAL 97.2 COOLING BLANKET OFF AT THIS TIME.
[2017-03-17] MEDS: MEROPENEM 500 MG in IV NS 0.9% 50 ML IV SCH ×2 (04:46→17:02)
[2017-03-17] MEDS: MIDODRINE HCL (5MG) 5 MG TABLET PO SCH ×3 (04:52→20:15)
--- NOTE | 2017-03-17 06:26 | NUR ---
RN NOTES PT ASLEEP WELL ON BED. BREATHING EVEN AND UNLABORED TOLERATED TRACH AND VENT SETTING WITHOUT ANY DISTRESS SHOWS. AFEBRILE AT THIS TIME LAST TEMP 97.9 DEG F. GTF ONGOING WITH RESIDUAL OF 60 CC. LAST SBP 95. MONITOR CLOSELY. WILL ENDORSED CONTINUITY OF CARE TO AM NURSE.
--- NOTE | 2017-03-17 07:42 | NUR ---
INITIAL PRODUCT SAFETY CONSULTANT NOTE RCVD PT AWAKE AND ALERT, SHOWING NO S/O DISTRESS/PAIN. AFIB ON TELE. TOLERATING ORDERED VENT SETTINGS. PER REPORT HIGH RESIDUALS OVERNIGHT FROM TUBE FEEDING. RESIDUAL OF 15 ML THIS AM. TUBE FEEDING RE-STARTED WILL CONTINUE TO MONITOR. G-TUBE PLACEMENT VERIFIED BY AUSCULTATION/ASPIRATION. IV SITES C/D/I/PATENT. NO S/O INFILTRATION/PHLBITIS OBSERVED UPON FLUSHING. WILL CONTINUE TO MONITOR PT FOR SAFETY AND COMFORT. CALL LIGHT WITHIN REACH. BED IN LOW AND LOCKED POSITION.
[2017-03-17 07:43] LABS: EOSINOPHILS # (AUTO) 0.1 /CMM (0.0-0.7); EOSINOPHILS % (AUTO) 0.2 % (0.0-6.0); HEMATOCRIT 22 % (33-45); HEMOGLOBIN 7.2 g/dL (11.5-14.8); LYMPHOCYTES # (AUTO) 1.7 /CMM (0.8-4.8); LYMPHOCYTES % (AUTO) 6.1 % (20.0-44.0); MEAN CORPUSCULAR HEMOGLOBIN 32 PG (26.0-33.0); MEAN CORPUSCULAR HGB CONC 33 g/dl (31.0-36.0); MEAN CORPUSCULAR VOLUME 100 fL (82-100); MONOCYTES % (AUTO) 3.8 % (2.0-12.0); NEUTROPHILS # (AUTO) 24.6 /CMM (1.8-8.9); NEUTROPHILS % (AUTO) 89.9 % (43.0-81.0); PLATELET COUNT (AUTO) 118 /CMM (150-450); RDW COEFFICIENT OF VARIATION 18.9 (11.5-15.0); RED BLOOD CELL COUNT(AUTO) 2.23 MIL/uL (4.0-5.2); WHITE BLOOD COUNT (AUTO) 27.4 K/uL (4.3-11.0)
[2017-03-17 07:55] LABS: CALCIUM, SERUM 7.4 mg/dL (8.5-10.1); CARBON DIOXIDE 28 mmol/L (21-32); CHLORIDE 99 mmol/L (98-107); CREATININE 1.5 mg/dL (0.6-1.3); GLUCOSE 91 mg/dL (74-106); MAGNESIUM 1.8 mg/dL (1.8-2.4); PHOSPHORUS 2.6 mg/dL (2.5-4.9); POTASSIUM 3.5 mmol/L (3.5-5.1); SODIUM SERUM 131 mmol/L (136-145); UREA NITROGEN, BLOOD 30 mg/dL (7-18)
[2017-03-17 09:15] LABS: BAND % (MANUAL) 5 % (0.0-5.0); EOSINOPHILS % (MANUAL) 4 % (0-4); LYMPHOCYTES % (MANUAL) 9 % (16-48); MONOCYTES % (MANUAL) 4 % (0-11.0); NEUTROPHILS % (MANUAL) 78 (42-76)
[2017-03-17] MEDS: PROSOURCE / PROSTAT (PYXIS) 30 ML UDC GT SCH (09:18)
[2017-03-17] MEDS: ACIDOPHILUS/BULGARICUS 1 EACH TAB.CHEW GT SCH ×2 (09:18→20:15)
[2017-03-17] MEDS: CALCITRIOL ORAL SOLUTION 1 MCG/ML GT SCH (09:18)
[2017-03-17] MEDS: LEVETIRACETAM SOL (5 ML) 100 MG/ML UDC GT SCH ×2 (09:18→20:14)
[2017-03-17] MEDS: ZINC SULFATE 220 MG CAPSULE PO SCH (09:18)
[2017-03-17] MEDS: VIT B CMPLX 3/FA/VIT C/BIOTIN 1 TAB TABLET GT SCH (09:18)
[2017-03-17] MEDS: VANCOMYCIN HCL 125 MG/2.5 ML ORAL.SUSP PO SCH ×4 (09:18→20:15)
[2017-03-17] MEDS: HYDROGEL DRESSING 90 GM TUBE TP SCH (09:19)
[2017-03-17] MEDS: Z GUARD REMEDY 2 OZ OINT TP SCH (09:19)
[2017-03-17] MEDS: MUPIROCIN OINT 2% 22 GM TUBE SCH ×2 (09:20→20:22)
--- NOTE | 2017-03-17 09:25 | NUR ---
DONOR SERVICES MANAGER NOTE PT'S FAMILY AT BEDSIDE UPDATED ON PT'S CONDITION. QUESTIONS ANSWERED IN GREEK.
[2017-03-17] MEDS: ALBUMIN 25% 25 GM in PREMIX 1 EA IV PRN (12:52)
[2017-03-17] MEDS: DIGOXIN INJ 0.5 MG/2 ML AMPUL IV SCH (13:02)
--- NOTE | 2017-03-17 14:04 | NUR ---
JERROD VIERA NOTE PT UNDERGOING HD BECAME TACHYCARDIC. HD SUSPENDED. ONLY ONE HR TX PROVIDED. Addendum: 03/17/17 at 1851 by DICK BARRERA RN CRISTINA KERN SINCE PT DID NOT COMPLETE FULL HD TX.
[2017-03-17] MEDS ORDERED: DILTIAZEM HCL 25 MG IV IV STA (15:19)
--- NOTE | 2017-03-17 15:25 | NUR ---
BOTTLING MACHINE OPERATOR NOTE PT HAVING AN EPISODE OF UNCONTROLLED AFIB 150s HR. DR. ARMAS CALLED AND INFORMED. RCVD ORDER TO ADMINISTER DILTIAZEM 10 MG. MEDICATION GIVEN ORDERED. PT'S FAMILY AT BEDSIDE AND INFORMED OF MD's DECISION. WILL CONTINUE TO MONITOR.
--- NOTE | 2017-03-17 16:11 | NUR ---
APPLICATION PACKAGING SPECIALIST NOTE PT'S HR DECREASED TO 120s FOR A WHILE NOW BACK UP TO 150-160s. PT HAS COOLING BLANKET ON DUE TO TEMP 101.[address] MOYA CALLED AWAITING CALL BACK.
--- NOTE | 2017-03-17 16:52 | NUR ---
SAMPLE DISTRIBUTOR NOTE DR. MOYA IN UNIT INFORMED OF PT'S ELEVATED HR REMAINS IN THE 160s. PT'S FAMILY AT BEDSIDE KEEP PULLING COOLING BLANKET OFF PT. PT AND PT'S FAMILY INSTRUCTED TO LEAVE BLANKET OVER PT TO DECREASE TEMP. WILL CONTINUE TO MONITOR.
[2017-03-17] MEDS: ACETAMINOPHEN 650 MG/20.3 ML UDC GT PRN (17:02)
--- NOTE | 2017-03-17 17:22 | NUR ---
COMMUNITY MANAGER NOTE DR. ARMAS CALLED PT'S TEMP 103.2, CULTURES ORDERED. COOLING BLANKET OVER PT. TYLENOL GIVEN. WILL CONTINUE TO MONITOR.
[2017-03-17] MEDS ORDERED: VANCOMYCIN 500 MG in IV D5W 100 ML IV PRN (17:30)
[2017-03-17] MEDS: FLUCONAZOLE IN NS,PREMIX 400 MG in PREMIX 1 EA IV SCH ×2 (17:46)
--- NOTE | 2017-03-17 17:57 | NUR ---
ELECTROENCEPHALOGRAPHIC TECHNOLOGIST NOTE ARMEN VALENZUELA FOR DR. YOON IN UNIT INFORMED OF PT'S ELEVATED TEMP, POOR TOLERANCE OF TUBE FEEDING AND INCREASED OUTPUT FROM G-TUBE FISTULA. PT'S TEMP AND HR ARE NORMALIZING. PT WAS PANCULTURED. WILL CONTINUE TO MONITOR.
--- NOTE | 2017-03-17 18:49 | NUR ---
MAINTENANCE SUPERVISOR MECHANICAL NOTE PT'S HR AND TEMP CONTINUE TO NORMALIZE. PT NPO AT THIS TIME. TOLERATING ORDERED VENT SETTINGS. REMAINS ON AFIB. WOUND CARE PERFORMED. IV SITES REMAIN C/D/I/PATENT. NO S/O INFILTRATION/PHLEBITIS OBSERVED. PT'S CARE WILL BE ENDORSED TO DISPATCHER REFINERY RN FOR CONTINUITY OF CARE.
--- NOTE | 2017-03-17 19:05 | NUR ---
RN OPENING NOTES RECEIVED REPORT FROM AM RN. PATIENT A/A/O X1, NON-VERBAL BUT RESPONSIVE TO VERBAL & TACTILE STIMULI. NO RESPIRATORY DISTRESS NOTED. TRACH INTACT W/ VENT SETTINGS AC 14, TV 500, FIO2 40%, PEEP 0. ON TELE W/ A-FIB W/ BBB, NO APPARENT DISTRESS NOTED. G-TUBE INTACT & PATENT, GTF ON HOLD @ THIS TIME D/T LARGE RESIDUALS. NO REDNESS OR BLEEDING NOTED ON GCF, STOMA BAG INTACT W/ SANGUINEOUS DRAINAGE. RIGHT FOREARM IV #20 INTACT W/ DRESSING CDI, ON TKO. RIGHT FOREARM IV #22 INTACT W/ DRESSING CDI, ON SALINE LOCK. NO S/S OF PAIN OR DISCOMFORT @ THIS TIME. SAFETY MEASURES IN PLACE, CONTACT ISOLATION PRECAUTIONS MAINTAINED.
[2017-03-17 20:46] LABS: BASOPHILS % (AUTO) 0.1 % (0.0-2.0); HEMATOCRIT 22 % (33-45); HEMOGLOBIN 7.1 g/dL (11.5-14.8); LYMPHOCYTES # (AUTO) 0.6 /CMM (0.8-4.8); LYMPHOCYTES % (AUTO) 2.3 % (20.0-44.0); MEAN CORPUSCULAR HEMOGLOBIN 32 PG (26.0-33.0); MEAN CORPUSCULAR HGB CONC 32 g/dl (31.0-36.0); MEAN CORPUSCULAR VOLUME 100 fL (82-100); MONOCYTES # (AUTO) 1.1 /CMM (0.1-1.30); MONOCYTES % (AUTO) 4.1 % (2.0-12.0); NEUTROPHILS # (AUTO) 24.5 /CMM (1.8-8.9); NEUTROPHILS % (AUTO) 93.5 % (43.0-81.0); PLATELET COUNT (AUTO) 123 /CMM (150-450); RDW COEFFICIENT OF VARIATION 19.8 (11.5-15.0); RED BLOOD CELL COUNT(AUTO) 2.22 MIL/uL (4.0-5.2); WHITE BLOOD COUNT (AUTO) 26.2 K/uL (4.3-11.0)
--- NOTE | 2017-03-17 21:30 | NUR ---
RN NOTES PATIENT SEEN & EXAMINED BY CJ LINTON & DR GISELLA MELÉNDEZ. NO NEW ORDERS RECEIVED.
[2017-03-17 21:41] LABS: NEUTROPHILS % (MANUAL) 90 (42-76)
[2017-03-17 21:42] LABS: BAND % (MANUAL) 2 % (0.0-5.0); EOSINOPHILS % (MANUAL) 1 % (0-4); LYMPHOCYTES % (MANUAL) 2 % (16-48); MONOCYTES % (MANUAL) 5 % (0-11.0)
--- NOTE | 2017-03-17 22:04 | NUR ---
RN NOTES 1 UNIT PRBC TRANSFUSION STARTED. NO INITIAL REACTIONS NOTED. WILL CONTINUE TO MONITOR.
[2017-03-18] VITALS: BP_SYST 79; BP_SYST 80; BP_DIAS 42
[2017-03-18 00:40] VITALS: BP 89/40
--- NOTE | 2017-03-18 00:40 | NUR ---
RN NOTES BLOOD TRANSFUSION COMPLETED. NO ADVERSE REACTIONS NOTED. PATIENT TOLERATED WELL.
[2017-03-18] MEDS: ALBUTEROL FS 2.5 MG/0.5 ML VIAL.NEB NEB SCH ×4 (01:35→19:27)
[2017-03-18] MEDS: IPRATROPIUM NEB FS 0.5 MG/2.5 ML AMPUL.NEB NEB SCH ×4 (01:35→19:27)
[2017-03-18] MEDS: MEROPENEM 500 MG in IV NS 0.9% 50 ML IV SCH (04:00)
[2017-03-18] MEDS: MIDODRINE HCL (5MG) 5 MG TABLET PO SCH ×3 (05:00→20:19)
[2017-03-18] MEDS: METOCLOPRAMIDE HCL 10 MG/10 ML UDC GT SCH ×4 (06:00→23:32)
[2017-03-18 08:00] VITALS: BP 112/38
[2017-03-18 10:35] LABS: CALCIUM, SERUM 7.8 mg/dL (8.5-10.1); CARBON DIOXIDE 26 mmol/L (21-32); CHLORIDE 100 mmol/L (98-107); CREATININE 1.6 mg/dL (0.6-1.3); GLUCOSE 78 mg/dL (74-106); MAGNESIUM 1.8 mg/dL (1.8-2.4); PHOSPHORUS 2.6 mg/dL (2.5-4.9); POTASSIUM 3.6 mmol/L (3.5-5.1); SODIUM SERUM 134 mmol/L (136-145); UREA NITROGEN, BLOOD 28 mg/dL (7-18)
[2017-03-18] MEDS: PROSOURCE / PROSTAT (PYXIS) 30 ML UDC GT SCH (10:58)
[2017-03-18] MEDS: VANCOMYCIN HCL 125 MG/2.5 ML ORAL.SUSP PO SCH (10:59)
[2017-03-18] MEDS: ACIDOPHILUS/BULGARICUS 1 EACH TAB.CHEW GT SCH ×2 (10:59→20:19)
[2017-03-18] MEDS: LEVETIRACETAM SOL (5 ML) 100 MG/ML UDC GT SCH ×2 (10:59→20:19)
[2017-03-18] MEDS: CALCITRIOL ORAL SOLUTION 1 MCG/ML GT SCH (10:59)
[2017-03-18] MEDS: VIT B CMPLX 3/FA/VIT C/BIOTIN 1 TAB TABLET GT SCH (11:00)
[2017-03-18] MEDS: HYDROGEL DRESSING 90 GM TUBE TP SCH (11:01)
[2017-03-18] MEDS: ZINC SULFATE 220 MG CAPSULE PO SCH (11:01)
[2017-03-18] MEDS: MUPIROCIN OINT 2% 22 GM TUBE SCH ×2 (11:01→20:20)
[2017-03-18] MEDS: Z GUARD REMEDY 2 OZ OINT TP SCH (11:33)
[2017-03-18 11:44] LABS: BASOPHILS # (AUTO) 0.1 /CMM (0.0-0.2); BASOPHILS % (AUTO) 0.3 % (0.0-2.0); EOSINOPHILS % (AUTO) 0.1 % (0.0-6.0); HEMATOCRIT 24 % (33-45); HEMOGLOBIN 7.9 g/dL (11.5-14.8); LYMPHOCYTES # (AUTO) 1.8 /CMM (0.8-4.8); MEAN CORPUSCULAR HEMOGLOBIN 33 PG (26.0-33.0); MEAN CORPUSCULAR HGB CONC 33 g/dl (31.0-36.0); MEAN CORPUSCULAR VOLUME 99 fL (82-100); MONOCYTES # (AUTO) 1.4 /CMM (0.1-1.30); MONOCYTES % (AUTO) 4.7 % (2.0-12.0); NEUTROPHILS % (AUTO) 88.9 % (43.0-81.0); PLATELET COUNT (AUTO) 108 /CMM (150-450); RDW COEFFICIENT OF VARIATION 19.2 (11.5-15.0); RED BLOOD CELL COUNT(AUTO) 2.43 MIL/uL (4.0-5.2)
[2017-03-18 11:51] LABS: WHITE BLOOD COUNT (AUTO) 30.3 K/uL (4.3-11.0)
[2017-03-18 12:00] VITALS: BP 84/37
[2017-03-18] MEDS ORDERED: DOSING PER PHARMACY-AMIKACI IV XX PRN (13:30)
[2017-03-18 13:40] LABS: BAND % (MANUAL) 15 % (0.0-5.0); LYMPHOCYTES % (MANUAL) 9 % (16-48); MONOCYTES % (MANUAL) 2 % (0-11.0); NEUTROPHILS % (MANUAL) 74 (42-76)
[2017-03-18] MEDS: CEFEPIME 1 GM in IV D5W 50 ML IV SCH (14:16)
[2017-03-18] MEDS ORDERED: FEE PK DOSING 1 MIN EA MC ONE (14:21)
[2017-03-18] MEDS ORDERED: AMIKACIN IV ONE (14:30)
[2017-03-18] MEDS ORDERED: D5W IV ONE (14:30)
[2017-03-18] MEDS: METRONIDAZOLE 500MG/ NS 100ML 500 MG in PREMIX 1 EA IV SCH ×2 (15:00→23:33)
[2017-03-18 16:00] VITALS: BP 97/40
[2017-03-18] MEDS: LINEZOLID RTU BAG 600 MG in PREMIX 1 EA IV SCH (16:16)
--- NOTE | 2017-03-18 19:00 | NUR ---
RN NOTE FLAGYL HELD DUE TO BE LATE DUE TO MULTIPLE IV ANTIBIOTICS RUNNING BACK TO BACK. NEXT DOSE OF FLAGYL WILL BE ADMINISTERED SCHEDULED. PM NURSE AWARE. DIFLUCAN ADMINISTERED LATE DUE TO PREVIOUS IV ANTIBIOTIC RUNNING SLOWLY AND IV SITE MALFUNCTION, IV PUMP STOPPED INFUSING SEVERAL TIMES DUE TO BENDING IV SITE.
[2017-03-18] MEDS: FLUCONAZOLE IN NS,PREMIX 400 MG in PREMIX 1 EA IV SCH ×2 (19:15)
[2017-03-18 20:00] VITALS: BP 91/42
[2017-03-19] VITALS: BP 107/84
[2017-03-19] MEDS: ALBUTEROL FS 2.5 MG/0.5 ML VIAL.NEB NEB SCH ×4 (01:42→20:09)
[2017-03-19] MEDS: IPRATROPIUM NEB FS 0.5 MG/2.5 ML AMPUL.NEB NEB SCH ×4 (01:42→20:09)
[2017-03-19] MEDS: LINEZOLID RTU BAG 600 MG in PREMIX 1 EA IV SCH (02:08)
[2017-03-19 04:00] VITALS: BP 97/59
[2017-03-19] MEDS: METOCLOPRAMIDE HCL 10 MG/10 ML UDC GT SCH ×4 (05:29→23:12)
[2017-03-19] MEDS: MIDODRINE HCL (5MG) 5 MG TABLET PO SCH ×3 (05:29→20:52)
[2017-03-19] MEDS: RENAL NOVASOURCE 1,000 ML BOTTLE GT PRN (05:35)
[2017-03-19] MEDS: DIGOXIN INJ 0.5 MG/2 ML AMPUL IV SCH (06:00)
[2017-03-19 06:04] LABS: CALCIUM, SERUM 7.7 mg/dL (8.5-10.1); CARBON DIOXIDE 25 mmol/L (21-32); CHLORIDE 99 mmol/L (98-107); CREATININE 1.5 mg/dL (0.6-1.3); GLUCOSE 88 mg/dL (74-106); POTASSIUM 3.3 mmol/L (3.5-5.1); SODIUM SERUM 132 mmol/L (136-145); UREA NITROGEN, BLOOD 32 mg/dL (7-18)
[2017-03-19] MEDS: METRONIDAZOLE 500MG/ NS 100ML 500 MG in PREMIX 1 EA IV SCH ×3 (06:10→23:12)
[2017-03-19 08:00] VITALS: BP 91/37
[2017-03-19] MEDS: ACIDOPHILUS/BULGARICUS 1 EACH TAB.CHEW GT SCH ×2 (09:02→20:52)
[2017-03-19] MEDS: HYDROGEL DRESSING 90 GM TUBE TP SCH (09:02)
[2017-03-19] MEDS: PROSOURCE / PROSTAT (PYXIS) 30 ML UDC GT SCH (09:02)
[2017-03-19] MEDS: CALCITRIOL ORAL SOLUTION 1 MCG/ML GT SCH (09:02)
[2017-03-19] MEDS: VIT B CMPLX 3/FA/VIT C/BIOTIN 1 TAB TABLET GT SCH (09:02)
[2017-03-19] MEDS: ZINC SULFATE 220 MG CAPSULE PO SCH (09:02)
[2017-03-19] MEDS: LEVETIRACETAM SOL (5 ML) 100 MG/ML UDC GT SCH ×2 (09:02→20:51)
[2017-03-19] MEDS: Z GUARD REMEDY 2 OZ OINT TP SCH (09:03)
[2017-03-19] MEDS: MUPIROCIN OINT 2% 22 GM TUBE SCH ×2 (09:09→20:52)
[2017-03-19 12:00] VITALS: BP 94/41
[2017-03-19] MEDS: CEFEPIME 1 GM in IV D5W 50 ML IV SCH (14:56)
[2017-03-19 16:00] VITALS: BP 112/65
[2017-03-19] MEDS ORDERED: FEE PK DOSING 1 MIN EA MC ONE (16:04)
[2017-03-19] MEDS: ACETAMINOPHEN 650 MG/20.3 ML UDC GT PRN (16:15)
[2017-03-19] MEDS ORDERED: DIGOXIN INJ 0.5 MG/2 ML AMPUL IV ONE (16:30)
--- NOTE | 2017-03-19 16:46 | NUR ---
PATIENT HR SUSTAINING 150 TO 160 UNCOTROLLED AFIB POST HD,DR. MELÉNDEZ NOTIFIED NO NEW ORDERS PER RENAL,REVIEWED MEDS. WILL GIVE AM DOSE OF DIG W/C WAS HELD BY NIGHT NURSE,WILL CONTINUE TO FF.
--- NOTE | 2017-03-19 16:49 | NUR ---
HR IMPROVING POST DIG NOW ON 120 TO 130.
[2017-03-19] MEDS ORDERED: VANCOMYCIN 1 GM in IV D5W 250 ML IV ONE (17:00)
[2017-03-19] MEDS: FLUCONAZOLE IN NS,PREMIX 400 MG in PREMIX 1 EA IV SCH ×2 (18:38)
--- NOTE | 2017-03-19 19:15 | NUR ---
RN INITIAL NOTES RECEIVED PATIENT IN BED, WITH FAMILY AT BEDSIDE. PATIENT NOTED TO BE AWAKE AND ALERT, ORIENTED X 1-2, ABLE TO MAKE NEEDS KNOWN, PANAMANIAN SPEAKING. PATIENT DENIES ANY PAIN AND DISCOMFORT AT THIS TIME. NO DISTRESS. ON MECH VENT VIA TRACH, C/D/I, MIDLINE. AIRWAY KEPT PATENT, SUCTIONED AIRWAY NEEDED. PATIENT IS AFIB WITH BBB WITH HR OF 86. COLOSTOMY BAG OVER ABD'L FISTULA, MINIMAL SEROUS DRAINAGE NOTED. PATIENT WITH GTF, STARTED ON LOW RATE, CURRENTLY AT 20cc/hr, NO GASTRIC RESIDUAL NOTED AT THIS TIME, HOB ELEVATED. INCREASED RATE TO 25cc/hr AND WILL MONITOR FOR TOLERANCE CLOSELY. L HAND G20, FLUSHED AND PATENT, NO SIGNS OF INFILTRATION. R CHESTWALL HD CATH WITH DRESSING INTACT. PATIENT'S NEEDS ANTICIPATED AND MET. SAFETY AND COMFORT ENSURED. BED IN LOW AND LOCKED POSITION. CALL LIGHT IN REACH. WILL MONITOR.
[2017-03-19 20:00] VITALS: BP 92/27
--- NOTE | 2017-03-19 23:42 | NUR ---
RN NOTES PATIENT SLEEPING COMFORTABLY. PATIENT'S GTF WAS INCREASED TO 25cc/hr AT 2100, MONITORED FOR ANY RESIDUAL, NONE NOTED AT THIS TIME. GTF INCREASED TO 30cc/hr, WILL MONITOR FOR TOLERANCE. METOCLOPRAMIDE GIVEN SCHEDULED.
[2017-03-20] VITALS: BP 92/32
[2017-03-20] MEDS: ALBUTEROL FS 2.5 MG/0.5 ML VIAL.NEB NEB SCH ×4 (02:04→19:58)
[2017-03-20] MEDS: IPRATROPIUM NEB FS 0.5 MG/2.5 ML AMPUL.NEB NEB SCH ×4 (02:04→19:58)
--- NOTE | 2017-03-20 03:23 | NUR ---
RN NOTES PATIENT PROVIDED WITH AM CARE, WOUND TREATMENT RENDERED, TRACH CARE DONE. PATIENT TURNED AND REPOSITIONED, KEPT CLEAN AND DRY. SAFETY AND COMFORT ENSURED. REASSESSED PATIENT'S TOLERANCE TO GTF AT 30cc/hr, PATIENT WITH NO GASTRIC RESIDUAL NOTED. INCREASED GTF TO 35cc/hr WHICH IS TO GOAL AT THIS TIME PER RD NOTED. WILL MONITOR.
[2017-03-20 04:00] VITALS: BP 92/57
[2017-03-20] MEDS: MIDODRINE HCL (5MG) 5 MG TABLET PO SCH ×3 (05:34→21:40)
[2017-03-20] MEDS: METOCLOPRAMIDE HCL 10 MG/10 ML UDC GT SCH ×3 (05:34→17:38)
--- NOTE | 2017-03-20 05:40 | NUR ---
RN NOTES GASTRIC RESIDUAL CHECKED WITH GTF RUNNING AT 35cc/hr FOR ALMOST 2 HOURS, NOTED PATIENT WITH GASTRIC RESIDUAL OF 170cc. GTF HELD, METOCLOPRAMIDE GIVEN ORDERED/SCHEDULED. WILL MONITOR.
[2017-03-20] MEDS: METRONIDAZOLE 500MG/ NS 100ML 500 MG in PREMIX 1 EA IV SCH ×2 (06:01→15:16)
--- NOTE | 2017-03-20 06:39 | NUR ---
RN CLOSING NOTES PATIENT STILL WITH GASTRIC RESIDUAL NOTED. GT CONTINUOUS TO BE CLAMPED AT THIS TIME, WILL ENDORSE ACCORDINGLY FOR F/UP. ABD FISTULA WITH MINIMAL DRAINAGE OF SEROUS FLUID, APPROXIMATELY 10cc. PATIENT WITH NO ACUTE DISTRESS AND CHANGE IN CONDITION OBSERVED OVERNIGHT. REMAINS AFIB WITH BBB, HR OF 65. PATIENT TURNED AND REPOSITIONED [id number] AND PRN. AIRWAY SUCTIONED NEEDED, TOLERATED CURRENT VENT SETTINGS WELL. HOB ELEVATED. SAFETY AND COMFORT ENSURED. BED IN LOW AND LOCKED POSITION. WILL ENDORSE ACCORDINGLY FOR CONTINUITY OF CARE.
[2017-03-20 07:02] LABS: BASOPHILS % (AUTO) 0.1 % (0.0-2.0); EOSINOPHILS # (AUTO) 0.1 /CMM (0.0-0.7); EOSINOPHILS % (AUTO) 0.4 % (0.0-6.0); HEMATOCRIT 24 % (33-45); HEMOGLOBIN 7.9 g/dL (11.5-14.8); LYMPHOCYTES # (AUTO) 1.9 /CMM (0.8-4.8); LYMPHOCYTES % (AUTO) 11.3 % (20.0-44.0); MEAN CORPUSCULAR HEMOGLOBIN 32 PG (26.0-33.0); MEAN CORPUSCULAR HGB CONC 32 g/dl (31.0-36.0); MEAN CORPUSCULAR VOLUME 99 fL (82-100); MONOCYTES # (AUTO) 0.8 /CMM (0.1-1.30); MONOCYTES % (AUTO) 4.9 % (2.0-12.0); NEUTROPHILS # (AUTO) 13.8 /CMM (1.8-8.9); NEUTROPHILS % (AUTO) 83.3 % (43.0-81.0); PLATELET COUNT (AUTO) 94 /CMM (150-450); RED BLOOD CELL COUNT(AUTO) 2.46 MIL/uL (4.0-5.2); WHITE BLOOD COUNT (AUTO) 16.5 K/uL (4.3-11.0)
[2017-03-20 07:14] LABS: CALCIUM, SERUM 7.7 mg/dL (8.5-10.1); CARBON DIOXIDE 28 mmol/L (21-32); CHLORIDE 100 mmol/L (98-107); CREATININE 1.5 mg/dL (0.6-1.3); GLUCOSE 104 mg/dL (74-106); MAGNESIUM 1.7 mg/dL (1.8-2.4); PHOSPHORUS 2.7 mg/dL (2.5-4.9); POTASSIUM 3.1 mmol/L (3.5-5.1); SODIUM SERUM 136 mmol/L (136-145); UREA NITROGEN, BLOOD 25 mg/dL (7-18)
[2017-03-20 07:25] LABS: BAND % (MANUAL) 1 % (0.0-5.0); EOSINOPHILS % (MANUAL) 1 % (0-4); LYMPHOCYTES % (MANUAL) 15 % (16-48); MONOCYTES % (MANUAL) 1 % (0-11.0); NEUTROPHILS % (MANUAL) 82 (42-76)
[2017-03-20 08:00] VITALS: BP 93/38
--- NOTE | 2017-03-20 08:00 | NUR ---
EPIC PROFESSIONAL NOTE PATIENT IN BEB . ALERT , ABLE TO MAKE HER NEEDS , TURN REPOSITION DOME , BED IN LOWEST AND LOCKED POSITION , ON TELE MONITOR AFIB WITH BBB HR 60, WITH ABD DRAIN ON LT SIDE OF ABDOMEN NO DRAINAGE AT THIS TIME , G TUBE STARTED AT 20 CC NO RESIDUAL AT THIS TIME, HEAD OF BED KEEP ELEVATED, LT 2 ND NICOLA HL INTACT, NO S\S INFECTION NOTED , WILL CONT TO MONITOR CLOSELY , NOT IN ACUTE DISTRESS AT THIS TIME
[2017-03-20] MEDS: ZINC SULFATE 220 MG CAPSULE PO SCH (08:15)
[2017-03-20] MEDS: PROSOURCE / PROSTAT (PYXIS) 30 ML UDC GT SCH (08:15)
[2017-03-20] MEDS: ACIDOPHILUS/BULGARICUS 1 EACH TAB.CHEW GT SCH ×2 (08:15→21:39)
[2017-03-20] MEDS: LEVETIRACETAM SOL (5 ML) 100 MG/ML UDC GT SCH ×2 (08:15→21:39)
[2017-03-20] MEDS: VIT B CMPLX 3/FA/VIT C/BIOTIN 1 TAB TABLET GT SCH (08:15)
[2017-03-20] MEDS: CALCITRIOL ORAL SOLUTION 1 MCG/ML GT SCH (08:16)
[2017-03-20] MEDS: MUPIROCIN OINT 2% 22 GM TUBE SCH ×2 (08:19→21:41)
[2017-03-20] MEDS: HYDROGEL DRESSING 90 GM TUBE TP SCH (08:20)
[2017-03-20] MEDS: Z GUARD REMEDY 2 OZ OINT TP SCH (08:20)
[2017-03-20] MEDS ORDERED: POTASSIUM CHLORIDE 20 MEQ TAB.PRT.SR PO ONE (11:30)
--- NOTE | 2017-03-20 11:54 | NUR ---
TELE RNNOTE SPOKE WITH DR MELÉNDEZ NOTIFIED THAT STILL HAS RESIDUAL ON 35 ML G TUBE FEEDING PER LAST NIGHT REPORT HAD 60 ML RESIDUAL AT 20 ML FEEDING ,WILL CONT TO MONITOR, ALSO NOTIFIED THAT K 3. 1 MAG 1.7 AWARE THAT PATIENT HAS REGLAN 5 MG Q 6 HOUR , AND OK TO CONT 2O ML G TUBE FEEDING RATE AT THIS TIME GIVEN NEW ORDER FOR K REPLACEMENT
[2017-03-20 12:00] VITALS: BP 102/67
--- NOTE | 2017-03-20 12:00 | NUR ---
FARM MACHINE TENDER NOTE ALL NEEDS ATTENDED ,NOT IN ACUTE DISTRESS ,KEEP CLAN DRY ,FAMILY AT BEDSIDE
[2017-03-20] MEDS: CEFEPIME 1 GM in IV D5W 50 ML IV SCH (14:12)
[2017-03-20 16:00] VITALS: BP 80/51
[2017-03-20] MEDS: FLUCONAZOLE IN NS,PREMIX 400 MG in PREMIX 1 EA IV SCH ×2 (17:38)
--- NOTE | 2017-03-20 17:49 | NUR ---
TABLEAU LEAD NOTE SPOKE WITH SERA DIGITAL SERVICE ENGINEER FOR DR RIKA OBANDO NOTIFIED THAT ABDOMINAL DRAIN NOW WITH 240 ML SEROUS YELLOW COLOR DRAINAGE , NO NEW ORDER GIVEN AT THIS TIME
--- NOTE | 2017-03-20 19:15 | NUR ---
RN INITIAL NOTES PATIENT NOTED TO BE AWAKE AND ALERT, ORIENTED X 1-2, ABLE TO MAKE NEEDS KNOWN, LATVIAN SPEAKING. PATIENT DENIES ANY PAIN AND DISCOMFORT. ON MECH VENT VIA TRACH, C/D/I, MIDLINE. AIRWAY KEPT PATENT, SUCTIONED AIRWAY NEEDED. NO DISTRESS. PATIENT IS AFIB WITH BBB WITH HR OF 68. COLOSTOMY BAG OVER ABD'L FISTULA, WITH COPIUOS AMOUNT OF SEROUS, YELLOW DRAINAGE NOTED. PATIENT WITH GTF, 35cc/hr, NO GASTRIC RESIDUAL NOTED AT THIS TIME, HOB ELEVATED. L 2ND FINGER G20, FLUSHED AND PATENT, NO SIGNS OF INFILTRATION. R CHESTWALL HD CATH WITH DRESSING INTACT. PATIENT'S NEEDS ANTICIPATED AND MET. SAFETY AND COMFORT ENSURED. BED IN LOW AND LOCKED POSITION. CALL LIGHT IN REACH. WILL MONITOR.
[2017-03-20 20:00] VITALS: BP 82/51
[2017-03-21] VITALS: BP 90/47
--- NOTE | 2017-03-21 00:30 | NUR ---
RN NOTES CHECKED PATIENT'S TOLERANCE WITH GTF, PATIENT WITH NO GASTRIC RESIDUAL NOTED, HOB ELEVATED. MONITORED THE DRAINAGE FROM THE GCF, NOTED COLOSTOMY BAG OVER GCF TO BE ALMOST FILLED UP, DRAINED AND NOTED WITH 450cc OF CLEAR, YELLOW, SEROUS FLUID. AND WHEN PATIENT IS TURNED AND REPOSITIONED, ADDITIONAL 50cc DRAINED.
[2017-03-21] MEDS: METRONIDAZOLE 500MG/ NS 100ML 500 MG in PREMIX 1 EA IV SCH ×3 (00:53→15:45)
[2017-03-21] MEDS: METOCLOPRAMIDE HCL 10 MG/10 ML UDC GT SCH ×4 (00:53→17:32)
[2017-03-21] MEDS: ALBUTEROL FS 2.5 MG/0.5 ML VIAL.NEB NEB SCH ×4 (01:48→19:45)
[2017-03-21] MEDS: IPRATROPIUM NEB FS 0.5 MG/2.5 ML AMPUL.NEB NEB SCH ×4 (01:49→19:45)
[2017-03-21 04:00] VITALS: BP 104/60
[2017-03-21] MEDS: RENAL NOVASOURCE 1,000 ML BOTTLE GT PRN (06:25)
[2017-03-21] MEDS: MIDODRINE HCL (5MG) 5 MG TABLET PO SCH ×3 (06:30→21:01)
--- NOTE | 2017-03-21 06:57 | NUR ---
RN CLOSING NOTES PATIENT TOLERATED GTF WITH RATE OF 35CC/HR, NO GASTRIC RESIDUAL NOTED FOR THE SHIFT. GCF WITH TOTAL DRAINAGE OF 900cc OF CLEAR, SEROUS FLUID. AIRWAY SUCTIONED AND KEPT PATENT. PATIENT TURNED AND REPOSITIONED. KEPT CLEAN AND DRY. WOUND CARE DONE, TRACH CARE DONE. NEEDS ANTICIPATED AND MET. SAFETY AND COMFORT ENSURED. BED IN LOW AND LOCKED POSITION. WILL ENDORSE ACCORDINGLY FOR CONTINUITY OF CARE.
--- NOTE | 2017-03-21 07:00 | NUR ---
RN NOTES RECEIVED PT ON BED, CITIZEN OF [place] SPEAKING A/Ox2, VENT/ TRACH DEPENDENT , TOLERATING CURRENT VENT SETTING WELL, NO SOB NOTED, L 2ND FINGER G 20 H/L SITE CDI, ON TELE AFIB WITH BBB WITH HR OF 67, COLOSTOMY BAG OVER ABD'L FISTULA, WITH MODERATE AMOUNT OF SEROUS, YELLOW DRAINAGE NOTED. NOVASOURCE AT 35cc/hr RUNNING VIA GT , NO GASTRIC RESIDUAL NOTED AT THIS TIME, HOB ELEVATED. R CHEST WALL HD CATH WITH DRESSING INTACT. SR UP x3, CALL LIGHT WITHIN EASY REACH , SAFETY AND COMFORT ENSURED. BED LOCKED AND LOWEST POSITION, WILL CONTINUE TO MONITOR CLSOELY
[2017-03-21 08:00] VITALS: BP 91/42
[2017-03-21 08:20] LABS: BASOPHILS % (AUTO) 0.4 % (0.0-2.0); EOSINOPHILS # (AUTO) 0.1 /CMM (0.0-0.7); EOSINOPHILS % (AUTO) 1.1 % (0.0-6.0); HEMATOCRIT 24 % (33-45); HEMOGLOBIN 7.8 g/dL (11.5-14.8); LYMPHOCYTES # (AUTO) 2.1 /CMM (0.8-4.8); LYMPHOCYTES % (AUTO) 19.5 % (20.0-44.0); MEAN CORPUSCULAR HEMOGLOBIN 33 PG (26.0-33.0); MEAN CORPUSCULAR HGB CONC 33 g/dl (31.0-36.0); MEAN CORPUSCULAR VOLUME 99 fL (82-100); MONOCYTES # (AUTO) 0.7 /CMM (0.1-1.30); MONOCYTES % (AUTO) 6.5 % (2.0-12.0); NEUTROPHILS # (AUTO) 7.9 /CMM (1.8-8.9); NEUTROPHILS % (AUTO) 72.5 % (43.0-81.0); PLATELET COUNT (AUTO) 93 /CMM (150-450); RDW COEFFICIENT OF VARIATION 19.3 (11.5-15.0); RED BLOOD CELL COUNT(AUTO) 2.38 MIL/uL (4.0-5.2)
[2017-03-21 08:32] LABS: CALCIUM, SERUM 7.4 mg/dL (8.5-10.1); CARBON DIOXIDE 25 mmol/L (21-32); CHLORIDE 100 mmol/L (98-107); CREATININE 1.7 mg/dL (0.6-1.3); GLUCOSE 134 mg/dL (74-106); MAGNESIUM 1.7 mg/dL (1.8-2.4); PHOSPHORUS 3.3 mg/dL (2.5-4.9); POTASSIUM 3.4 mmol/L (3.5-5.1); SODIUM SERUM 133 mmol/L (136-145); UREA NITROGEN, BLOOD 35 mg/dL (7-18)
[2017-03-21] MEDS: ACIDOPHILUS/BULGARICUS 1 EACH TAB.CHEW GT SCH ×2 (08:57→20:43)
[2017-03-21] MEDS: ZINC SULFATE 220 MG CAPSULE PO SCH (08:57)
[2017-03-21] MEDS: LEVETIRACETAM SOL (5 ML) 100 MG/ML UDC GT SCH ×2 (08:57→20:42)
[2017-03-21] MEDS: VIT B CMPLX 3/FA/VIT C/BIOTIN 1 TAB TABLET GT SCH (08:57)
[2017-03-21] MEDS: CALCITRIOL ORAL SOLUTION 1 MCG/ML GT SCH (08:59)
[2017-03-21] MEDS: PROSOURCE / PROSTAT (PYXIS) 30 ML UDC GT SCH (09:01)
[2017-03-21] MEDS: Z GUARD REMEDY 2 OZ OINT TP SCH (09:02)
[2017-03-21] MEDS: MUPIROCIN OINT 2% 22 GM TUBE SCH ×2 (09:05→20:43)
[2017-03-21] MEDS: HYDROGEL DRESSING 90 GM TUBE TP SCH (09:05)
[2017-03-21] MEDS ORDERED: Magnesium 1GM/D5W 100ML PREMIX 100 ML IV SCH (11:30)
[2017-03-21 12:00] VITALS: BP 100/46
[2017-03-21 12:05] LABS: BAND % (MANUAL) 1 % (0.0-5.0); LYMPHOCYTES % (MANUAL) 18 % (16-48); MONOCYTES % (MANUAL) 2 % (0-11.0); NEUTROPHILS % (MANUAL) 79 (42-76)
[2017-03-21] MEDS: ACETAMINOPHEN 650 MG/20.3 ML UDC GT PRN (12:47)
--- NOTE | 2017-03-21 12:47 | NUR ---
RN NOTES PT HR UP150'S RAPID A. FIB AFTER HD , DR ARMAS AND DR COPE NOTIFIED, DIG .[address] COPE ORDER , CONTINUE TO MONITOR .BP 99/40 AT THIS TIME .
[2017-03-21] MEDS ORDERED: DIGOXIN INJ 0.5 MG/2 ML AMPUL IV ONE (13:00)
--- NOTE | 2017-03-21 13:30 | NUR ---
RN NOTES HR STILL IN 150'S BP= 95/31,T=100 , DR COPE PAGED AND NOTIFIED REGARDING HIGH HR , NOTHING NEEDS TO BE GIVE AT THIS TIME FOR HIGH HR PER DR COPE , WILL MONITOR PT CLOSELY PER DR VANCE ORDER.
[2017-03-21] MEDS: CEFEPIME 1 GM in IV D5W 50 ML IV SCH (14:19)
--- NOTE | 2017-03-21 15:50 | NUR ---
RN NOTE Patient vomited large amount of gastric contents. At 0900 and 1300 there was no gt residual. Dr. Dickey was notified and patient was given zofran 4 mg ivp per MD order. Continue to monitor patient.
--- NOTE | 2017-03-21 15:50 | NUR ---
RN NOTE Tube feeding held due to vomiting. Dr. Dickey notified.
[2017-03-21 16:00] VITALS: BP 80/33
[2017-03-21] MEDS: ONDANSETRON HCL/PF 4 MG/2 ML VIAL IV PRN (16:00)
[2017-03-21] MEDS ORDERED: IV NS 0.9% 500 ML IV ONE (17:00)
[2017-03-21] MEDS: VANCOMYCIN 500 MG in IV D5W 100 ML IV PRN ×2 (17:30→17:31)
--- NOTE | 2017-03-21 18:16 | NUR ---
RN NOTE BP now 81/44. Bolus of 250 cc infusing. Heart rate 103. Patient alert and oriented x1. Temp 99.0 after Tylenol given. Tube feeding still on hold. Bed locked and in lowest position. Side rail up x3. Medications given per MD order. Will endorse to pipe stem repairer for continuity of care.
[2017-03-21 20:00] VITALS: BP 64/31
[2017-03-22] VITALS (9 sets, daily range): BP systolic 65–91; BP diastolic 25–49
[2017-03-22] MEDS ORDERED: IV NS 0.9% 500 ML IV ONE ×4 (00:30→07:30)
[2017-03-22] MEDS: METOCLOPRAMIDE HCL 10 MG/10 ML UDC GT SCH ×4 (00:54→18:25)
[2017-03-22] MEDS: METRONIDAZOLE 500MG/ NS 100ML 500 MG in PREMIX 1 EA IV SCH ×4 (00:54→22:15)
--- NOTE | 2017-03-22 01:00 | NUR ---
RN NOTE RECEIVED ORDERS FROM DR ARMAS TO GIVE 500 ML BOLUS OF NS X 2 HRS, IF SBP IS < 80 REPEAT. READBACK ORDERS PERFORMED. NOTIFIED DR ARMAS OF PT BLOOD CULTURE SHOWING POSITIVE FOR GRAM NEGATIVE RODS. NO NEW ORDERS.
[2017-03-22] MEDS: IPRATROPIUM NEB FS 0.5 MG/2.5 ML AMPUL.NEB NEB SCH ×4 (02:03→20:25)
[2017-03-22] MEDS: ALBUTEROL FS 2.5 MG/0.5 ML VIAL.NEB NEB SCH ×4 (02:03→20:25)
[2017-03-22] MEDS: MIDODRINE HCL (5MG) 5 MG TABLET PO SCH ×3 (05:45→22:15)
[2017-03-22] MEDS: DIGOXIN INJ 0.5 MG/2 ML AMPUL IV SCH (05:46)
--- NOTE | 2017-03-22 07:30 | NUR ---
RN NOTE Received report from manufacturing supervisor 2nd shift RN. Patient was given NS bolus of 500 cc over 2 hours by manufacturing supervisor 2nd shift RN. Since BP is still low, I will infuse another 500 cc per MD order. Patient is lethargic but is able to understanding. Tube feeding of Novasource infusing at 35 cc/hr. IV in left finger infusing NS bolus. Breathing appears even and unlabored. Will continue to monitor blood pressure.
[2017-03-22] MEDS: LEVETIRACETAM SOL (5 ML) 100 MG/ML UDC GT SCH ×2 (08:37→22:14)
[2017-03-22] MEDS: CALCITRIOL ORAL SOLUTION 1 MCG/ML GT SCH (08:37)
[2017-03-22] MEDS: ZINC SULFATE 220 MG CAPSULE PO SCH (08:38)
[2017-03-22] MEDS: ACIDOPHILUS/BULGARICUS 1 EACH TAB.CHEW GT SCH ×2 (08:38→22:15)
[2017-03-22 08:40] LABS: BASOPHILS # (AUTO) 0.1 /CMM (0.0-0.2); BASOPHILS % (AUTO) 0.2 % (0.0-2.0); HEMATOCRIT 23 % (33-45); HEMOGLOBIN 7.4 g/dL (11.5-14.8); LYMPHOCYTES % (AUTO) 4.8 % (20.0-44.0); MEAN CORPUSCULAR HEMOGLOBIN 33 PG (26.0-33.0); MEAN CORPUSCULAR HGB CONC 33 g/dl (31.0-36.0); MEAN CORPUSCULAR VOLUME 101 fL (82-100); MONOCYTES # (AUTO) 0.7 /CMM (0.1-1.30); MONOCYTES % (AUTO) 1.8 % (2.0-12.0); NEUTROPHILS # (AUTO) 38.8 /CMM (1.8-8.9); NEUTROPHILS % (AUTO) 93.2 % (43.0-81.0); PLATELET COUNT (AUTO) 78 /CMM (150-450); RDW COEFFICIENT OF VARIATION 19.9 (11.5-15.0); RED BLOOD CELL COUNT(AUTO) 2.24 MIL/uL (4.0-5.2)
[2017-03-22] MEDS: HYDROGEL DRESSING 90 GM TUBE TP SCH (08:40)
[2017-03-22] MEDS: Z GUARD REMEDY 2 OZ OINT TP SCH (08:40)
[2017-03-22] MEDS: MUPIROCIN OINT 2% 22 GM TUBE SCH ×2 (08:43→22:16)
[2017-03-22 08:44] LABS: WHITE BLOOD COUNT (AUTO) 41.7 K/uL (4.3-11.0)
[2017-03-22] MEDS: PROSOURCE / PROSTAT (PYXIS) 30 ML UDC GT SCH (08:44)
[2017-03-22] MEDS: VIT B CMPLX 3/FA/VIT C/BIOTIN 1 TAB TABLET GT SCH (08:45)
[2017-03-22 08:46] LABS: CALCIUM, SERUM 7.7 mg/dL (8.5-10.1); CHLORIDE 103 mmol/L (98-107); CREATININE 1.8 mg/dL (0.6-1.3); GLUCOSE 83 mg/dL (74-106); MAGNESIUM 1.8 mg/dL (1.8-2.4); PHOSPHORUS 2.6 mg/dL (2.5-4.9); POTASSIUM 3.6 mmol/L (3.5-5.1); SODIUM SERUM 136 mmol/L (136-145); UREA NITROGEN, BLOOD 30 mg/dL (7-18)
[2017-03-22 08:50] LABS: CARBON DIOXIDE 24 mmol/L (21-32)
--- NOTE | 2017-03-22 09:15 | NUR ---
RN NOTE Second bolus of NS 500 over 2 hours is running. SBP is still low running in the 70s and 80s. BP at this time is 86/34. WBC is 41.7. I put in a call to Dr. Dickey regarding the WBC and low BP and am waiting for her to call back.
[2017-03-22 09:39] LABS: BAND % (MANUAL) 3 % (0.0-5.0); EOSINOPHILS % (MANUAL) 1 % (0-4); LYMPHOCYTES % (MANUAL) 4 % (16-48); MONOCYTES % (MANUAL) 3 % (0-11.0); NEUTROPHILS % (MANUAL) 89 (42-76)
--- NOTE | 2017-03-22 09:44 | NUR ---
RN NOTE Dr. Dickey did not return my page so I just called her again ([phone]). Am waiting for a call back.
--- NOTE | 2017-03-22 10:00 | NUR ---
RN NOTE Reported the WBC 41.7 and low BP to Dr. Dickey. She is going to talk to the surgical team about removing the HD catheter. She said that patient's baseline SBP readings are usually in the low 80s. No orders were received.
--- NOTE | 2017-03-22 11:15 | NUR ---
RN NOTE Called patient's son Scotty to get consent to remove the dialysis catheter on the right upper chest. Consent witnessed by two RNs. Lidocaine, and suture set at bedside.
[2017-03-22] MEDS ORDERED: LIDOCAINE 1% INJ 50 ML MDV IJ ONE (11:30)
[2017-03-22] MEDS ORDERED: CHLORHEXIDINE GLUCONATE 4% 118 ML BOTTLE TP ONE (12:00)
--- NOTE | 2017-03-22 12:45 | NUR ---
RN NOTE Dr. Domínguez removed the dialysis catheter. Catheter tip sent to lab for culture.
--- NOTE | 2017-03-22 13:07 | NUR ---
RN NOTE BP up to 82/38 after midodrine dose through gt. Will continue to monitor.
[2017-03-22] MEDS: CEFEPIME 1 GM in IV D5W 50 ML IV SCH (13:46)
[2017-03-22] MEDS ORDERED: FEE PK DOSING 1 MIN EA MC ONE (14:56)
[2017-03-22] MEDS ORDERED: DOSING PER PHARMACY-AMIKACI IV XX PRN (15:00)
--- NOTE | 2017-03-22 15:00 | NUR ---
Tube feeding was turned off at 13:30 due to high residual. It was turned back on at 14:30 when resdiual was zero. Because patient vomited yesterday with little or no residual, I felt it best to hold for an hour to prevent aspiration.
--- NOTE | 2017-03-22 15:00 | NUR ---
Respiratory therapist did trach care. Patient has been sleeping the past hour.
[2017-03-22] MEDS ORDERED: AMIKACIN 350 MG in IV D5W 100 ML IV ONE (16:00)
--- NOTE | 2017-03-22 16:30 | NUR ---
Dr. Dickey notified of BP 74/25. Received order for albumin 25% in 200 ml, however before it was given BP jason to 92/42 when patient was supine. Will give albumin when I receive it from pharmacy. Amikacin was given past due time because it was not available.
[2017-03-22] MEDS ORDERED: ALBUMIN 25% 12.5 GM in PREMIX 1 EA IV SCH (17:30)
[2017-03-22] MEDS: ALBUMIN 25% 25 GM in PREMIX 1 EA IV SCH ×3 (18:01→23:30)
[2017-03-22] MEDS: VANCOMYCIN HCL 125 MG/2.5 ML ORAL.SUSP PO SCH (18:26)
--- NOTE | 2017-03-22 18:38 | NUR ---
RN NOTE Patient resting comfortably with no c/o pain. Remained afebrile. Albumin is infusing. Family at bedside. Bed locked in low position, call light in reach.
[2017-03-23] VITALS (7 sets, daily range): BP systolic 87–123; BP diastolic 34–65
[2017-03-23] MEDS: VANCOMYCIN HCL 125 MG/2.5 ML ORAL.SUSP PO SCH ×5 (00:40→23:48)
[2017-03-23] MEDS: METOCLOPRAMIDE HCL 10 MG/10 ML UDC GT SCH ×4 (00:40→17:32)
[2017-03-23] MEDS: IPRATROPIUM NEB FS 0.5 MG/2.5 ML AMPUL.NEB NEB SCH ×4 (02:03→20:12)
[2017-03-23] MEDS: ALBUTEROL FS 2.5 MG/0.5 ML VIAL.NEB NEB SCH ×4 (02:03→20:12)
[2017-03-23] MEDS: MIDODRINE HCL (5MG) 5 MG TABLET PO SCH ×3 (05:09→21:22)
[2017-03-23] MEDS: METRONIDAZOLE 500MG/ NS 100ML 500 MG in PREMIX 1 EA IV SCH ×3 (07:02→23:46)
--- NOTE | 2017-03-23 07:14 | NUR ---
RN NOTE PT REMAINS IN NO ACUTE DISTRESS IN BED. PT DID NOT HAVE ANY SIGNIFICANT CHANGE IN CONDITION DURING SHIFT. ALL NEEDS MET, ALL ORDERS CARRIED OUT. WILL ENDORSE CARE TO AM RN FOR CONTINUITY OF CARE.
--- NOTE | 2017-03-23 07:30 | NUR ---
ANGLEDOZER OPERATOR OPENING RECEIVED PATIENT A/OX1--2 NODS YES AND NO TO QUESTIONS ASKED OF HER. PATIENT DENIES PAIN, SOB, DIFFICULTY BREATHING. PATIENT REPOSITIONED FOR INCREASED COMFORT. TUBE FEEDING RUNNING ORDERED NO RESIDUAL NOTED. COLOSTOMY OVER OLD GT SITE INTACT; WILL CONTINUE TO MONITOR. TELE AFIB CONTROLLED 60'S TO 70'S. SKIN CARE ORDERED. CONTINUING TO MONITOR. KEEPING CLEAN AND DRY. OFFLOADING HEELS AND ELBOWS. PATIENT APPEARS STABLE AT THIS TIME. BED LOWERED AND LOCKED, RAILS UPX3 FOR SAFETY. BED ALARM ON. WILL ROUND Q2H OR LESS PER NEEDS. Addendum: 03/23/17 at 1334 by JENNIFER NDIAYE RN ANGLEDOZER OPERATOR NOTES TELE NSR
[2017-03-23 07:54] LABS: BASOPHILS % (AUTO) 0.2 % (0.0-2.0); EOSINOPHILS # (AUTO) 0.1 /CMM (0.0-0.7); EOSINOPHILS % (AUTO) 0.5 % (0.0-6.0); HEMATOCRIT 22 % (33-45); HEMOGLOBIN 7.4 g/dL (11.5-14.8); LYMPHOCYTES # (AUTO) 1.9 /CMM (0.8-4.8); LYMPHOCYTES % (AUTO) 7.6 % (20.0-44.0); MEAN CORPUSCULAR HEMOGLOBIN 33 PG (26.0-33.0); MEAN CORPUSCULAR HGB CONC 33 g/dl (31.0-36.0); MEAN CORPUSCULAR VOLUME 102 fL (82-100); MONOCYTES # (AUTO) 0.8 /CMM (0.1-1.30); MONOCYTES % (AUTO) 3.2 % (2.0-12.0); NEUTROPHILS # (AUTO) 22.5 /CMM (1.8-8.9); NEUTROPHILS % (AUTO) 88.5 % (43.0-81.0); PLATELET COUNT (AUTO) 83 /CMM (150-450); RDW COEFFICIENT OF VARIATION 20.6 (11.5-15.0); RED BLOOD CELL COUNT(AUTO) 2.21 MIL/uL (4.0-5.2); WHITE BLOOD COUNT (AUTO) 25.4 K/uL (4.3-11.0)
[2017-03-23 08:05] LABS: CALCIUM, SERUM 7.9 mg/dL (8.5-10.1); CARBON DIOXIDE 24 mmol/L (21-32); CHLORIDE 102 mmol/L (98-107); CREATININE 2.2 mg/dL (0.6-1.3); GLUCOSE 131 mg/dL (74-106); MAGNESIUM 1.9 mg/dL (1.8-2.4); PHOSPHORUS 2.8 mg/dL (2.5-4.9); POTASSIUM 3.1 mmol/L (3.5-5.1); SODIUM SERUM 137 mmol/L (136-145); UREA NITROGEN, BLOOD 40 mg/dL (7-18)
[2017-03-23] MEDS: PROSOURCE / PROSTAT (PYXIS) 30 ML UDC GT SCH (09:18)
[2017-03-23] MEDS: LEVETIRACETAM SOL (5 ML) 100 MG/ML UDC GT SCH ×2 (09:19→21:21)
[2017-03-23] MEDS: VIT B CMPLX 3/FA/VIT C/BIOTIN 1 TAB TABLET GT SCH (09:19)
[2017-03-23] MEDS: Z GUARD REMEDY 2 OZ OINT TP SCH (09:19)
[2017-03-23] MEDS: ACIDOPHILUS/BULGARICUS 1 EACH TAB.CHEW GT SCH ×2 (09:19→21:21)
[2017-03-23] MEDS: HYDROGEL DRESSING 90 GM TUBE TP SCH (09:19)
[2017-03-23] MEDS: ZINC SULFATE 220 MG CAPSULE PO SCH (09:19)
[2017-03-23] MEDS: RENAL NOVASOURCE 1,000 ML BOTTLE GT PRN (09:20)
[2017-03-23] MEDS: CALCITRIOL ORAL SOLUTION 1 MCG/ML GT SCH (09:20)
[2017-03-23] MEDS: MUPIROCIN OINT 2% 22 GM TUBE SCH ×2 (09:24→21:23)
[2017-03-23 10:00] LABS: BAND % (MANUAL) 6 % (0.0-5.0); MONOCYTES % (MANUAL) 1 % (0-11.0); NEUTROPHILS % (MANUAL) 93 (42-76)
--- NOTE | 2017-03-23 10:07 | NUR ---
COURT MAGISTRATE NOTES CONFIRMED WITH DR PAWEL SU TO DC MISC ORDER FOR NS BOLUS AND DC PRN ALBUMIN (KEP PRN HD ALBUMIN ORDER). UPDATED ON PATIENT CONDITION. NO OTHER ORDERS AT THIS TIME
--- NOTE | 2017-03-23 11:15 | NUR ---
DYNAMOMETER TESTER ENGINE NOTES CALLED PHARMACY AND SPOKE WITH JENNIFER PHARMACIST AND NOTIFIED WE ARE OUT OF PATIENT VANCOCIN. PER JENNIFER THEY WILL SEND
--- NOTE | 2017-03-23 11:45 | NUR ---
PILLOWCASE FOLDER NOTES PATIENT VOMITED. STOPPED TUBE FEEDING. CLEANED PATIENT UP. DR YOON LOG CUTTER AWARE AND UPDATED. PER MD YOON HOLD TUBE FEEDINGS AT THIS TIME.
--- NOTE | 2017-03-23 12:57 | NUR ---
MOTOR WINDER NOTES CALLED PHARMACY TO NOTIFY AGAIN WE DO NOT HAVE VANCOCIN STILL. THEY WILL SEND
[2017-03-23] MEDS: Z GUARD REMEDY 2 OZ OINT TP PRN (13:05)
[2017-03-23] MEDS: CEFEPIME 1 GM in IV D5W 50 ML IV SCH (13:05)
--- NOTE | 2017-03-23 18:49 | NUR ---
SOLDER TECHNICIAN NOTES PATIENT VOMITED AGAIN. TUBE FEEDING HAS BEEN HELD SINCE PATIENT VOMITED THIS AFTERNOON. NOTIFIED DR YOON. PER MD ORDER ERYTHROMYCIN 500MG Q8H. PATIENT CLEANED UP AND HOB ELEVATED FOR ASPIRATION PRECAUTIONS
--- NOTE | 2017-03-23 19:02 | NUR ---
TARIFF PUBLISHING AGENT CLOSING PATIENT HAD ANOTHER EPISODE OF EMESIS. DR YOON AWARE AND PER MD HOLD TUBE FEEDINGS. PATIENT CLEANED UP. HOB ELEVATED AND SUCTIONED. TELE CONTROLLED AFIB AT THIS TIME. 1800 DOSE VANCO HELD DUE TO EMESIS. PATIENT FAMILY MEMBER AT BEDSIDE. CARE WILL BE ENDORSED TO AYLIN PEÑA FOR CONNOR
--- NOTE | 2017-03-23 19:40 | NUR ---
EMR ANALYST INITIAL NOTE PT RECEIVED IN NO ACUTE DISTRESS AT THIS TIME. FAMILY AT BEDSIDE. ON TELE WITH A-FIB BBB 63. A/O X1 AND NOT ABLE TO MAKE NEEDS KNOWN. ON TRACH/VENT TOLERATING SETTINGS WELL. STOMA SITE CLEAN DRY AND GT FEEDING WITH NO RESIDUALS TO RESTART FEEDING NOVASOURCE @35CC/HR. 2ND FINGER 20G IS CLEAN DRY AND INTACT. COMFORT AND SAFETY MEASURES TO BE PLACED. WILL CONTINUE TO MONITOR FOR ANY CHANGES DURING THE SHIFT.
[2017-03-23] MEDS ORDERED: ERYTHROMYCIN 500 MG in IV NS 0.9% 100 ML IV SCH (20:00)
--- NOTE | 2017-03-23 20:32 | NUR ---
PT RECEIVED TRACHED ON VENT. NO RESP DISTRESS NOTED. PT TOLERATING VENT SETTINGS. SX'D FOR SML AMT OF THICK PALE SECRETIONS. VENT ALARMS SET AND AUDIBLE. VENT PLUGGED INTO RED OUTLET. WILL CONTINUE TO MONITOR. Addendum: 03/23/17 at 2033 by CAROL CROSS RT Amended: Links added.
[2017-03-23] MEDS: ERYTHROMYCIN ETHYLSUCCINATE 200 MG/5 ML SUSPENSION GT SCH (21:20)
[2017-03-24] VITALS: BP 100/49
[2017-03-24] MEDS: IPRATROPIUM NEB FS 0.5 MG/2.5 ML AMPUL.NEB NEB SCH ×4 (01:08→20:15)
[2017-03-24] MEDS: ALBUTEROL FS 2.5 MG/0.5 ML VIAL.NEB NEB SCH ×4 (01:08→20:15)
[2017-03-24 04:00] VITALS: BP 93/32
[2017-03-24] MEDS: MIDODRINE HCL (5MG) 5 MG TABLET PO SCH ×3 (05:00→21:21)
[2017-03-24] MEDS: VANCOMYCIN HCL 125 MG/2.5 ML ORAL.SUSP PO SCH ×4 (05:57→23:54)
[2017-03-24] MEDS: ERYTHROMYCIN ETHYLSUCCINATE 200 MG/5 ML SUSPENSION GT SCH ×3 (05:57→21:19)
[2017-03-24] MEDS: METRONIDAZOLE 500MG/ NS 100ML 500 MG in PREMIX 1 EA IV SCH ×3 (05:57→23:54)
[2017-03-24] MEDS: DIGOXIN INJ 0.5 MG/2 ML AMPUL IV SCH (05:58)
[2017-03-24 07:09] LABS: CALCIUM, SERUM 8.1 mg/dL (8.5-10.1); CARBON DIOXIDE 26 mmol/L (21-32); CHLORIDE 104 mmol/L (98-107); CREATININE 2.3 mg/dL (0.6-1.3); GLUCOSE 149 mg/dL (74-106); SODIUM SERUM 138 mmol/L (136-145); UREA NITROGEN, BLOOD 49 mg/dL (7-18)
--- NOTE | 2017-03-24 07:30 | NUR ---
SYSTEMS DESIGNER INITIAL NOTE PT RECEIVED IN NO ACUTE DISTRESS AT THIS TIME.ON TELE WITH A-FIB BBB 63. A/O X1 AND NOT ABLE TO MAKE NEEDS KNOWN. ON TRACH/VENT TOLERATING SETTINGS WELL. STOMA SITE AND GT FEEDING WITH NO RESIDUALS TO RESTART FEEDING NOVASOURCE @35CC/HR. 2ND FINGER 20G IS CLEAN DRY AND INTACT. COMFORT AND SAFETY MEASURES TO BE PLACED. WILL CONTINUE TO MONITOR FOR ANY CHANGES DURING THE SHIFT.
[2017-03-24 07:57] LABS: DIGOXIN 1.63 ng/mL (0.90-2.00)
[2017-03-24 08:00] VITALS: BP 97/32
[2017-03-24] MEDS: ACIDOPHILUS/BULGARICUS 1 EACH TAB.CHEW GT SCH ×2 (08:48→21:18)
[2017-03-24] MEDS: LEVETIRACETAM SOL (5 ML) 100 MG/ML UDC GT SCH ×2 (08:48→21:19)
[2017-03-24] MEDS: VIT B CMPLX 3/FA/VIT C/BIOTIN 1 TAB TABLET GT SCH (08:48)
[2017-03-24] MEDS: ZINC SULFATE 220 MG CAPSULE PO SCH (08:48)
[2017-03-24] MEDS: Z GUARD REMEDY 2 OZ OINT TP SCH (08:49)
[2017-03-24] MEDS: CALCITRIOL ORAL SOLUTION 1 MCG/ML GT SCH (08:49)
[2017-03-24] MEDS: MUPIROCIN OINT 2% 22 GM TUBE SCH ×2 (08:49→21:21)
[2017-03-24] MEDS: HYDROGEL DRESSING 90 GM TUBE TP SCH (08:49)
[2017-03-24] MEDS: PROSOURCE / PROSTAT (PYXIS) 30 ML UDC GT SCH (08:49)
[2017-03-24 12:00] VITALS: BP 102/42
[2017-03-24] MEDS ORDERED: POTASSIUM CHLORIDE 20 MEQ TAB.PRT.SR PO ONE (12:30)
[2017-03-24] MEDS ORDERED: POTASSIUM CHLORIDE 20 MEQ POWDER PACKET PO ONE (12:30)
[2017-03-24] MEDS: CEFEPIME 1 GM in IV D5W 50 ML IV SCH (15:05)
[2017-03-24] MEDS: LEVOFLOXACIN 500 MG /D5W 100ML 500 MG in PREMIX 1 EA IV SCH (15:43)
[2017-03-24 16:00] VITALS: BP_SYST 102; BP_SYST 99; BP_DIAS 40; BP_DIAS 42
[2017-03-24 16:28] LABS: BASOPHILS # (AUTO) 0.1 /CMM (0.0-0.2); BASOPHILS % (AUTO) 0.6 % (0.0-2.0); EOSINOPHILS % (AUTO) 0.2 % (0.0-6.0); HEMATOCRIT 23 % (33-45); HEMOGLOBIN 7.5 g/dL (11.5-14.8); LYMPHOCYTES # (AUTO) 1.1 /CMM (0.8-4.8); LYMPHOCYTES % (AUTO) 5.4 % (20.0-44.0); MEAN CORPUSCULAR HEMOGLOBIN 33 PG (26.0-33.0); MEAN CORPUSCULAR HGB CONC 32 g/dl (31.0-36.0); MEAN CORPUSCULAR VOLUME 103 fL (82-100); MONOCYTES # (AUTO) 0.5 /CMM (0.1-1.30); MONOCYTES % (AUTO) 2.7 % (2.0-12.0); NEUTROPHILS # (AUTO) 18.8 /CMM (1.8-8.9); NEUTROPHILS % (AUTO) 91.1 % (43.0-81.0); PLATELET COUNT (AUTO) 104 /CMM (150-450); RDW COEFFICIENT OF VARIATION 21.8 (11.5-15.0); RED BLOOD CELL COUNT(AUTO) 2.28 MIL/uL (4.0-5.2); WHITE BLOOD COUNT (AUTO) 20.6 K/uL (4.3-11.0)
[2017-03-24 17:17] LABS: BAND % (MANUAL) 2 % (0.0-5.0); LYMPHOCYTES % (MANUAL) 3 % (16-48); MONOCYTES % (MANUAL) 4 % (0-11.0); NEUTROPHILS % (MANUAL) 91 (42-76)
--- NOTE | 2017-03-24 19:20 | NUR ---
RN INITIAL NOTE RECEIVED PT IN NO ACUTE DISTRESS IN BED. PT IS A/O X 1 AND ABLE TO MAKE NEEDS KNOWN BY MOUTHING WORDS IN THAI. FAMILY IS AT BEDSIDE. PT IS ON MECHANICAL VENT VIA TRACH, TRACH SITE IS CLEAN DRY AND INTACT. PT TOLERATING VENT SETTING WELL. PT IS ON TELE WITH A-FIB WITH BBB ON THE MONITOR. PT HAS OLD GTUBE SITE STOMA THAT IS CLEAN DRY AND INTACT WITH OSTOMY BAG IN PLACE. OSTOMY BAG HAS YELLOW FLUID DRAINING. PT HAS GTUBE THAT IS CLEAN DRY AND INTACT WITH NOVASOURCE @ 35ML/HR AND TOLERATING WELL. PT HAS L 2ND FINGER 20G THAT IS CLEAN DRY INTACT AND PATENT WITH SALINE FLUSH. BED IN LOW LOCK POSITION WITH RAILS UP X 2. CALL LIGHT WITHIN REACH AND ALL SAFETY MEASURES ENSURED AND CARRIED OUT. WILL CONTINUE TO MONITOR FOR ANY CHANGES IN CONDITION.
[2017-03-24 20:00] VITALS: BP 105/50
[2017-03-25] VITALS: BP 96/52
[2017-03-25] MEDS: ALBUTEROL FS 2.5 MG/0.5 ML VIAL.NEB NEB SCH ×4 (01:30→19:06)
[2017-03-25] MEDS: IPRATROPIUM NEB FS 0.5 MG/2.5 ML AMPUL.NEB NEB SCH ×4 (01:30→19:06)
[2017-03-25 04:00] VITALS: BP 105/34
[2017-03-25] MEDS: VANCOMYCIN HCL 125 MG/2.5 ML ORAL.SUSP PO SCH ×3 (05:57→17:00)
[2017-03-25] MEDS: MIDODRINE HCL (5MG) 5 MG TABLET PO SCH ×3 (05:57→21:22)
[2017-03-25] MEDS: ERYTHROMYCIN ETHYLSUCCINATE 200 MG/5 ML SUSPENSION GT SCH ×3 (05:57→21:21)
[2017-03-25] MEDS: METRONIDAZOLE 500MG/ NS 100ML 500 MG in PREMIX 1 EA IV SCH ×3 (06:00→22:39)
[2017-03-25 06:57] LABS: CALCIUM, SERUM 8.2 mg/dL (8.5-10.1); CARBON DIOXIDE 23 mmol/L (21-32); CHLORIDE 105 mmol/L (98-107); CREATININE 2.4 mg/dL (0.6-1.3); GLUCOSE 176 mg/dL (74-106); POTASSIUM 3.7 mmol/L (3.5-5.1); SODIUM SERUM 138 mmol/L (136-145); UREA NITROGEN, BLOOD 55 mg/dL (7-18)
--- NOTE | 2017-03-25 07:30 | NUR ---
RN WHITNEY RECEIVED PATIENT ALERT AWAKE X 1 ACIAL GRIMACES NOTED WHEN SHE'S IN PAIN ON MECHANICAL VENTILATORY SUPPORT SATURATING WELL TURNED PATIENT FROM SIDE TO SIDE NO DISTRESS SEEN AT THE MOMENT MONITORED ACCORDINGLY
[2017-03-25 08:00] VITALS: BP 138/80
[2017-03-25] MEDS: ZINC SULFATE 220 MG CAPSULE PO SCH (08:41)
[2017-03-25] MEDS: ACIDOPHILUS/BULGARICUS 1 EACH TAB.CHEW GT SCH ×2 (08:41→21:22)
[2017-03-25] MEDS: LEVETIRACETAM SOL (5 ML) 100 MG/ML UDC GT SCH ×2 (08:41→21:21)
[2017-03-25] MEDS: VIT B CMPLX 3/FA/VIT C/BIOTIN 1 TAB TABLET GT SCH (08:41)
[2017-03-25] MEDS: Z GUARD REMEDY 2 OZ OINT TP SCH (08:42)
[2017-03-25] MEDS: HYDROGEL DRESSING 90 GM TUBE TP SCH (08:43)
[2017-03-25] MEDS: MUPIROCIN OINT 2% 22 GM TUBE SCH ×2 (08:43→21:00)
[2017-03-25] MEDS: CALCITRIOL ORAL SOLUTION 1 MCG/ML GT SCH (09:33)
[2017-03-25] MEDS: PROSOURCE / PROSTAT (PYXIS) 30 ML UDC GT SCH (09:33)
[2017-03-25 12:00] VITALS: BP 120/79
[2017-03-25] MEDS: CEFEPIME 1 GM in IV D5W 50 ML IV SCH (13:38)
[2017-03-25 16:00] VITALS: BP 110/70
[2017-03-25] MEDS ORDERED: DOSE PER PHARMACY (MD SPECIFY MEDICATION) 1 EA XX PRN (17:30)
[2017-03-25] MEDS: ACYCLOVIR 200 MG CAPSULE PO SCH (17:41)
[2017-03-25 20:00] VITALS: BP 92/37
[2017-03-26] VITALS: BP 102/34
--- NOTE | 2017-03-26 01:08 | NUR ---
research agricultural engineer; report gvien to Janis/RN, MADE AWARE ALL ORDERS. PT IS STABLE CONDITION. GT FEEDING HELD SINCE 1999 DUE TO HIGH RESIDUAL, ENDORSED MAY NEED TO CHECK RESIDUAL BEFORE START FEEDING.
--- NOTE | 2017-03-26 01:15 | NUR ---
RN NOTES RECEIVED REPORT FROM AYLIN CARRASCO. PATIENT WITH NO DISTRESS AT THIS TIME, TRACH ON MIDLINE, C/D/I, AIRWAY SUCTIONED AND KEPT PATENT. AFIB WITH BBB ON TELE, HR OF 62. CHECKED GASTRIC RESIDUAL AND STILL NOTED WITH HIGH RESIDUAL OF 120, FEEDING KEPT ON HOLD AT THIS TIME, WILL MONITOR CLOSELY. GCF WITH COLOSTOMY BAG IN PLACE, NOTED WITH SCANT AMOUNT OF SEROUS, WHITISH-YELLOWISH, DRAINAGE IN BAG. L 2ND FINGER G20, FLUSHED AND PATENT, ON SL. PATIENT TURNED AND REPOSITIONED. SAFETY AND COMFORT ENSURED AT ALL TIMES. WILL MONITOR CLOSELY.
[2017-03-26] MEDS: ALBUTEROL FS 2.5 MG/0.5 ML VIAL.NEB NEB SCH ×4 (01:59→19:29)
[2017-03-26] MEDS: IPRATROPIUM NEB FS 0.5 MG/2.5 ML AMPUL.NEB NEB SCH ×4 (01:59→19:29)
[2017-03-26 04:00] VITALS: BP 91/39
[2017-03-26] MEDS: RENAL NOVASOURCE 1,000 ML BOTTLE GT PRN ×2 (04:27→14:48)
[2017-03-26] MEDS: MIDODRINE HCL (5MG) 5 MG TABLET PO SCH ×3 (04:28→21:07)
[2017-03-26] MEDS: ERYTHROMYCIN ETHYLSUCCINATE 200 MG/5 ML SUSPENSION GT SCH ×3 (04:28→21:06)
--- NOTE | 2017-03-26 04:30 | NUR ---
RN NOTES PATIENT'S GASTRIC RESIDUAL CHECKED AND NOTED TO BE 5cc. GTF RESUMED AT THIS TIME, STARTED ORDERED AT 35cc/hr. ALL DUE MEDS GIVEN ORDERED. WILL MONITOR FOR TOLERANCE. ALSO CHECKED ON THE PATIENT'S DRAINAGE FROM GCF, NO DRAINAGE OBSERVED. WILL MONITOR.
[2017-03-26] MEDS: METRONIDAZOLE 500MG/ NS 100ML 500 MG in PREMIX 1 EA IV SCH ×3 (06:01→23:39)
--- NOTE | 2017-03-26 06:29 | NUR ---
RN CLOSING NOTES PATIENT WITH NO ACUTE DISTRESS OBSERVED OVERNIGHT. GTF INFUSING AND TOLERATED WELL BY PATIENT, NO GASTRIC RESIDUAL MONITORED. GCF SITE WITH MINIMAL DRAINAGE NOTED, APPROXIMATELY 10cc OF YELLOW FLUID. AIRWAY SUCTIONED AND KEPT PATENT. REMAINS AFIB WITH BBB AT 68. PATIENT'S HOB ELEVATED. TURNED AND REPOSITIONED. WOUND CARE RENDERED, TRACH CARE DONE. ALL DUE MEDS GIVEN ORDERED. SAFETY AND COMFORT ENSURED. BED IN LOW AND LOCKED POSITION. WILL ENDORSE ACCORDINGLY FOR CONTINUITY OF CARE.
[2017-03-26 06:49] LABS: CALCIUM, SERUM 8.2 mg/dL (8.5-10.1); CHLORIDE 105 mmol/L (98-107); CREATININE 2.5 mg/dL (0.6-1.3); GLUCOSE 91 mg/dL (74-106); POTASSIUM 3.5 mmol/L (3.5-5.1); SODIUM SERUM 138 mmol/L (136-145); UREA NITROGEN, BLOOD 63 mg/dL (7-18)
[2017-03-26 07:09] LABS: CARBON DIOXIDE 23 mmol/L (21-32)
[2017-03-26 07:52] LABS: BASOPHILS # (AUTO) 0.1 /CMM (0.0-0.2); BASOPHILS % (AUTO) 0.4 % (0.0-2.0); EOSINOPHILS # (AUTO) 0.2 /CMM (0.0-0.7); EOSINOPHILS % (AUTO) 1.2 % (0.0-6.0); HEMATOCRIT 23 % (33-45); HEMOGLOBIN 7.3 g/dL (11.5-14.8); LYMPHOCYTES % (AUTO) 14.4 % (20.0-44.0); MEAN CORPUSCULAR HEMOGLOBIN 33 PG (26.0-33.0); MEAN CORPUSCULAR HGB CONC 32 g/dl (31.0-36.0); MEAN CORPUSCULAR VOLUME 103 fL (82-100); MONOCYTES # (AUTO) 0.7 /CMM (0.1-1.30); MONOCYTES % (AUTO) 4.9 % (2.0-12.0); NEUTROPHILS # (AUTO) 11.1 /CMM (1.8-8.9); NEUTROPHILS % (AUTO) 79.1 % (43.0-81.0); PLATELET COUNT (AUTO) 112 /CMM (150-450); RDW COEFFICIENT OF VARIATION 23.1 (11.5-15.0); RED BLOOD CELL COUNT(AUTO) 2.22 MIL/uL (4.0-5.2); WHITE BLOOD COUNT (AUTO) 14.1 K/uL (4.3-11.0)
[2017-03-26 08:00] VITALS: BP 93/32
[2017-03-26] MEDS: ACYCLOVIR 200 MG CAPSULE PO SCH ×3 (08:10→16:00)
[2017-03-26] MEDS: ZINC SULFATE 220 MG CAPSULE PO SCH (08:10)
[2017-03-26] MEDS: ACIDOPHILUS/BULGARICUS 1 EACH TAB.CHEW GT SCH ×2 (08:10→21:07)
[2017-03-26] MEDS: CALCITRIOL ORAL SOLUTION 1 MCG/ML GT SCH (08:10)
[2017-03-26] MEDS: LEVETIRACETAM SOL (5 ML) 100 MG/ML UDC GT SCH ×2 (08:10→21:06)
[2017-03-26] MEDS: VIT B CMPLX 3/FA/VIT C/BIOTIN 1 TAB TABLET GT SCH (08:10)
[2017-03-26] MEDS: PROSOURCE / PROSTAT (PYXIS) 30 ML UDC GT SCH (08:10)
[2017-03-26] MEDS: HYDROGEL DRESSING 90 GM TUBE TP SCH (08:11)
[2017-03-26] MEDS: Z GUARD REMEDY 2 OZ OINT TP SCH (08:11)
[2017-03-26] MEDS: MUPIROCIN OINT 2% 22 GM TUBE SCH ×2 (08:11→21:14)
--- NOTE | 2017-03-26 09:08 | NUR ---
RN NOTES RECEIVED PATIENT AOX2 WOLOF SPEAKING , MOUTHING WORDS NOT IN ACUTE DISTRESS , RESPIRATIONS EVEN AND UNLABORED WITH SPO2 OF 100% VIA MECHANICAL VENTILATOR SETTING ORDERED , AFIB WITH BBB 75 ON TELE MONITOR , GCF DRAINING WITH MINIMAL YELLOWISH OUTPUT WITH COLOSTOMY BAG , GT PATENT AND INTACT WITH FIBERSOURCE @ 35 ML/HR NOTED WITH 30ML RESIDUALS , L 2ND FINGER 20 SL PATENT AND INTACT , ALL NEEDS ATTENDED ,BED ON LOW AND LOCKED POSITION , SIDE RAILS X2 , HOB @ 35 , WILL CONTINUE TO MONITOR Addendum: 03/26/17 at 0910 by FLOYD YOUNG RN SEEN PATIENT @ 0730 AM
[2017-03-26 10:21] LABS: BAND % (MANUAL) 1 % (0.0-5.0); EOSINOPHILS % (MANUAL) 1 % (0-4); LYMPHOCYTES % (MANUAL) 8 % (16-48); MONOCYTES % (MANUAL) 5 % (0-11.0); MYELOCYTES % 1 % (0-0); NEUTROPHILS % (MANUAL) 84 (42-76)
[2017-03-26 12:00] VITALS: BP 89/63
[2017-03-26] MEDS: CEFEPIME 1 GM in IV D5W 50 ML IV SCH (13:45)
[2017-03-26] MEDS: DIGOXIN INJ 0.5 MG/2 ML AMPUL IV SCH (13:46)
--- NOTE | 2017-03-26 13:55 | NUR ---
RN NOTES SPOKE WITH LUX DIETITIAN , RECOMMENDING TO DECREASE GT FEEDING OF NOVASOURCE TO 30ML/HR PT NOTED WITH HIGH RESIDUALS , AND STOP PROSTAT PT IS NOT HAVING DIALYSIS . ORDERS CARRIED OUT
[2017-03-26 16:00] VITALS: BP 89/33
[2017-03-26] MEDS: LEVOFLOXACIN 500 MG /D5W 100ML 500 MG in PREMIX 1 EA IV SCH (16:00)
--- NOTE | 2017-03-26 19:30 | NUR ---
GANTRY RIGGER INITIAL NOTES RECEIVE PATIENT AWAKE, A/OX2, NON-VERBAL, VENT DEPENDENT. DENIES PAIN OR DISCOMFORT AT THIS TIME. NO RESPIRATORY DISTRESS NOTED. WITH VENT SETTINGS AC 14, TV 500, FIO2 40%, PEEP 0. TRACH C/D/I. WITH GT PATENT AND INTACT, RESIDUAL 60ML WITH NOVASOURCE AT 30ML/HR. SKIN WARM AND DRY TO TOUCH. ON TELE MONITOR AFIB CONTROLLED WITH BBB. ISOLATION PRECAUTIONS OBSERVED. SIDE RAILS UP AND LOCKED. BED KEPT AT LOWEST POSITION. TURNED AND REPOSITIONED. WILL CONTINUE TO MONITOR.
[2017-03-26 20:00] VITALS: BP_SYST 102; BP_SYST 94; BP_DIAS 38; BP_DIAS 43
--- NOTE | 2017-03-26 20:30 | NUR ---
MECHATRONICS TECHNICIAN NOTES PATIENT NOTED WITH RESIDUAL >100ML GTF HELD AT THIS TIME, NO N/V NOTED. WILL CONTINUE TO MONITOR.
[2017-03-27] VITALS: BP 93/38
[2017-03-27] MEDS: ALBUTEROL FS 2.5 MG/0.5 ML VIAL.NEB NEB SCH ×4 (01:33→19:55)
[2017-03-27] MEDS: IPRATROPIUM NEB FS 0.5 MG/2.5 ML AMPUL.NEB NEB SCH ×4 (01:33→19:55)
[2017-03-27] MEDS: RENAL NOVASOURCE 1,000 ML BOTTLE GT PRN (03:53)
[2017-03-27 04:00] VITALS: BP 97/36
--- NOTE | 2017-03-27 04:00 | NUR ---
NOTED WITH 30ML RESIDUAL. GTF RESUMED. WILL CONTINUE TO MONITOR.
[2017-03-27] MEDS: ERYTHROMYCIN ETHYLSUCCINATE 200 MG/5 ML SUSPENSION GT SCH ×3 (04:08→21:08)
[2017-03-27] MEDS: MIDODRINE HCL (5MG) 5 MG TABLET PO SCH ×3 (04:09→21:09)
[2017-03-27 05:22] LABS: BASOPHILS % (AUTO) 0.3 % (0.0-2.0); EOSINOPHILS # (AUTO) 0.1 /CMM (0.0-0.7); EOSINOPHILS % (AUTO) 0.8 % (0.0-6.0); HEMATOCRIT 22 % (33-45); HEMOGLOBIN 7.1 g/dL (11.5-14.8); LYMPHOCYTES # (AUTO) 1.7 /CMM (0.8-4.8); LYMPHOCYTES % (AUTO) 10.9 % (20.0-44.0); MEAN CORPUSCULAR HEMOGLOBIN 33 PG (26.0-33.0); MEAN CORPUSCULAR HGB CONC 32 g/dl (31.0-36.0); MEAN CORPUSCULAR VOLUME 104 fL (82-100); MONOCYTES # (AUTO) 0.7 /CMM (0.1-1.30); MONOCYTES % (AUTO) 4.4 % (2.0-12.0); NEUTROPHILS % (AUTO) 83.6 % (43.0-81.0); PLATELET COUNT (AUTO) 128 /CMM (150-450); RDW COEFFICIENT OF VARIATION 24.4 (11.5-15.0); RED BLOOD CELL COUNT(AUTO) 2.14 MIL/uL (4.0-5.2); WHITE BLOOD COUNT (AUTO) 15.6 K/uL (4.3-11.0)
[2017-03-27 05:35] LABS: CALCIUM, SERUM 8.1 mg/dL (8.5-10.1); CARBON DIOXIDE 25 mmol/L (21-32); CHLORIDE 105 mmol/L (98-107); CREATININE 2.7 mg/dL (0.6-1.3); GLUCOSE 145 mg/dL (74-106); PHOSPHORUS 4.2 mg/dL (2.5-4.9); POTASSIUM 3.5 mmol/L (3.5-5.1); SODIUM SERUM 140 mmol/L (136-145); UREA NITROGEN, BLOOD 74 mg/dL (7-18)
--- NOTE | 2017-03-27 06:47 | NUR ---
ENTREPRENEURIAL FINANCE PROFESSOR CLOSING NOTES NO SIGNIFICANT CHANGES OVERNIGHT. GTF AT 30ML/HR, TOLERATING AT THIS TIME. NO RESPIRATORY DISTRESS NOTED. SKIN WARM AND DRY TO TOUCH. ALL DUE MEDS GIVEN. KEPT CLEAN AND DRY. WOUND TX DONE ORDERED. TURNED AND REPOSITIONED Q2 AND PRN. SIDE RAILS UP AND LOCKED. BED KEPT AT LOWEST POSITION. DVT PUMPS IN PLACE. WILL ENDORSE CONTINUITY OF CARE TO AM NURSE.
[2017-03-27] MEDS: METRONIDAZOLE 500MG/ NS 100ML 500 MG in PREMIX 1 EA IV SCH ×3 (06:55→23:33)
--- NOTE | 2017-03-27 07:36 | NUR ---
PRECISION LATHE OPERATOR INITIAL NOTES RECEIVE PATIENT ASLEEP A/OX2, ,ON VENT DEPENDENT. DENIES PAIN OR DISCOMFORT AT THIS TIME. NO RESPIRATORY DISTRESS NOTED. WITH VENT SETTINGS AC 14, TV 500, FIO2 40%, PEEP 0. TRACH C/D/I. WITH GT PATENT AND INTACT, RESIDUAL 15 ML WITH NOVASOURCE AT 30ML/HR. SKIN WARM AND DRY TO TOUCH. ON TELE MONITOR AFIB CONTROLLED WITH BBB. ISOLATION PRECAUTIONS OBSERVED. SIDE RAILS UP AND LOCKED. BED KEPT AT LOWEST POSITION. TURNED AND REPOSITIONED. WILL CONTINUE TO MONITOR.AMBU BAG AT HOB ,KEEP HOB ELEVATED AT ALL TIME RT FA AND LT HAND HL INTACT, ON BREATHING TX ORDERED
[2017-03-27 08:00] VITALS: BP 98/30
[2017-03-27] MEDS: VIT B CMPLX 3/FA/VIT C/BIOTIN 1 TAB TABLET GT SCH (08:23)
[2017-03-27] MEDS: LEVETIRACETAM SOL (5 ML) 100 MG/ML UDC GT SCH ×2 (08:23→21:09)
[2017-03-27] MEDS: ZINC SULFATE 220 MG CAPSULE PO SCH (08:23)
[2017-03-27] MEDS: ACIDOPHILUS/BULGARICUS 1 EACH TAB.CHEW GT SCH ×2 (08:23→21:09)
[2017-03-27] MEDS: HYDROGEL DRESSING 90 GM TUBE TP SCH (08:24)
[2017-03-27] MEDS: MUPIROCIN OINT 2% 22 GM TUBE SCH ×2 (08:24→21:10)
[2017-03-27] MEDS: CALCITRIOL ORAL SOLUTION 1 MCG/ML GT SCH (08:24)
[2017-03-27] MEDS: Z GUARD REMEDY 2 OZ OINT TP SCH (08:25)
--- NOTE | 2017-03-27 11:00 | NUR ---
network/telecom engineer note keep clean dry , made bm keep clean dry , turn reposition q 2hour ,will cont to monitor closely
[2017-03-27 12:00] VITALS: BP 93/41
[2017-03-27] MEDS ORDERED: AMIKACIN 500 MG in IV D5W 100 ML IV ONE (12:00)
[2017-03-27] MEDS: AMIKACIN 500 MG in IV D5W 100 ML IV PRN ×2 (12:00→12:11)
[2017-03-27] MEDS ORDERED: VANCOMYCIN 1 GM in IV D5W 250 ML IV ONE (12:00)
[2017-03-27] MEDS: ACETAMINOPHEN 650 MG/20.3 ML UDC GT PRN (13:43)
--- NOTE | 2017-03-27 14:00 | NUR ---
SORTER PACKER NOTE DR ARMAS AWARE THAT HG 7.1 NO NEW ORDER GIVEN AT THIS TIME
[2017-03-27] MEDS: CEFEPIME 1 GM in IV D5W 50 ML IV SCH (14:36)
--- NOTE | 2017-03-27 14:54 | NUR ---
alvarez lucio note dr pacheco called ordered to get consent for perma cath placement and npo after mid midnight except meds ,bmp in am ,order carried out Addendum: 03/27/17 at 1542 by MATIAS DANG RN alvarez peralta son at bedside , sighned consent for PermCath placement
[2017-03-27 16:00] VITALS: BP 100/59
--- NOTE | 2017-03-27 16:00 | NUR ---
DIETARY COOK NOTE DR VILLA ID DOCTOR NOTIFIED THAT WBC 15.6 AWARE THAT PATIENT ON MULTIPLE ATB
--- NOTE | 2017-03-27 17:22 | NUR ---
CHRONIC SPECIALIST NOTE FAXED TO LAB ORDER FROM DR CURRIE ,SPOKE WITH LISA, STATED WILL CHECK IT OUT
--- NOTE | 2017-03-27 18:08 | NUR ---
COUNTRY MANAGER NOTE TURN REPOSITION Q2 HOUR , KEEP CLEAN DRY, RESIDUAL 60 ML AT THIS TIME ,WILL MONITOR CLOSELY
--- NOTE | 2017-03-27 19:26 | NUR ---
DOUBLE CUT SAWYER NOTE NO RESIDUAL NOTED AT THIS TIME, WILL CONT TO MONITOR CLOSELY ,ENDORSED CARE TO GUNNAR VIERA
[2017-03-27 20:00] VITALS: BP 94/38
--- NOTE | 2017-03-27 21:47 | NUR ---
LISA FROM LAB CALLED, VERBALIZED SHE DOESNT KNOW WHAT DO TO WITH MISCELLANEOUS LAB ORDER. SPOKE TO [facility] MICRO DEPARTMENT, SPOKE TO AMY, NEED TO CALL BACK IN AM. Addendum: 03/27/17 at 2150 by GUNNAR ZUÑIGA RN [facility] PHONE # [phone]
[2017-03-28] VITALS: BP 93/40
[2017-03-28] MEDS: IPRATROPIUM NEB FS 0.5 MG/2.5 ML AMPUL.NEB NEB SCH ×4 (01:45→20:27)
[2017-03-28] MEDS: ALBUTEROL FS 2.5 MG/0.5 ML VIAL.NEB NEB SCH ×4 (01:45→20:27)
[2017-03-28 04:00] VITALS: BP 92/36
[2017-03-28] MEDS: ERYTHROMYCIN ETHYLSUCCINATE 200 MG/5 ML SUSPENSION GT SCH ×3 (05:02→21:01)
[2017-03-28] MEDS: MIDODRINE HCL (5MG) 5 MG TABLET PO SCH ×3 (05:03→21:01)
[2017-03-28 06:39] LABS: BASOPHILS % (AUTO) 0.3 % (0.0-2.0); EOSINOPHILS # (AUTO) 0.3 /CMM (0.0-0.7); EOSINOPHILS % (AUTO) 2.1 % (0.0-6.0); HEMATOCRIT 23 % (33-45); HEMOGLOBIN 7.7 g/dL (11.5-14.8); LYMPHOCYTES % (AUTO) 15.2 % (20.0-44.0); MEAN CORPUSCULAR HEMOGLOBIN 34 PG (26.0-33.0); MEAN CORPUSCULAR HGB CONC 33 g/dl (31.0-36.0); MEAN CORPUSCULAR VOLUME 105 fL (82-100); MONOCYTES # (AUTO) 0.6 /CMM (0.1-1.30); MONOCYTES % (AUTO) 4.8 % (2.0-12.0); NEUTROPHILS # (AUTO) 10.1 /CMM (1.8-8.9); NEUTROPHILS % (AUTO) 77.6 % (43.0-81.0); PLATELET COUNT (AUTO) 136 /CMM (150-450); RDW COEFFICIENT OF VARIATION 26.8 (11.5-15.0); RED BLOOD CELL COUNT(AUTO) 2.24 MIL/uL (4.0-5.2); WHITE BLOOD COUNT (AUTO) 13.1 K/uL (4.3-11.0)
[2017-03-28] MEDS: METRONIDAZOLE 500MG/ NS 100ML 500 MG in PREMIX 1 EA IV SCH ×3 (06:40→23:27)
--- NOTE | 2017-03-28 07:14 | NUR ---
RN NOTES RECEIVED PT FROM PRODUCT SUPPORT ENGINEER, A&0X1-2 CHRONIC VENT/TRACH PT TOLERATING VENT SETTINGS NO SOB OR DISTRESS NOTED. A FIB ON THE TELE MONITOR. L FA 20G, L HAND 20G IV SITE DRY AND INTACT WITH NO IVF. GTUBE FEEDING ON HOLD, PT NPO. BED LOCKED AND IN LOWEST POSITION, SIDE RAILS UPX3, WILL CONT TO MONITOR.
[2017-03-28 07:16] LABS: CALCIUM, SERUM 8.1 mg/dL (8.5-10.1); CARBON DIOXIDE 22 mmol/L (21-32); CHLORIDE 102 mmol/L (98-107); CREATININE 2.7 mg/dL (0.6-1.3); GLUCOSE 112 mg/dL (74-106); PHOSPHORUS 4.8 mg/dL (2.5-4.9); POTASSIUM 3.1 mmol/L (3.5-5.1); SODIUM SERUM 136 mmol/L (136-145); UREA NITROGEN, BLOOD 78 mg/dL (7-18)
[2017-03-28 08:00] VITALS: BP_SYST 90; BP_SYST 99; BP_DIAS 34
[2017-03-28] MEDS: CALCITRIOL ORAL SOLUTION 1 MCG/ML GT SCH (08:12)
[2017-03-28] MEDS: ZINC SULFATE 220 MG CAPSULE PO SCH (08:12)
[2017-03-28] MEDS: VIT B CMPLX 3/FA/VIT C/BIOTIN 1 TAB TABLET GT SCH (08:12)
[2017-03-28] MEDS: ACIDOPHILUS/BULGARICUS 1 EACH TAB.CHEW GT SCH ×2 (08:12→21:00)
[2017-03-28] MEDS: MUPIROCIN OINT 2% 22 GM TUBE SCH ×2 (08:12→21:03)
[2017-03-28] MEDS: LEVETIRACETAM SOL (5 ML) 100 MG/ML UDC GT SCH ×2 (08:12→21:00)
[2017-03-28] MEDS: Z GUARD REMEDY 2 OZ OINT TP SCH (08:13)
[2017-03-28] MEDS: HYDROGEL DRESSING 90 GM TUBE TP SCH (08:13)
[2017-03-28 11:19] LABS: INR 1.65 (0.87-1.13); PROTHROMBIN TIME 17.2 SECS (9.5-12.7)
--- NOTE | 2017-03-28 11:27 | NUR ---
REGISTERED RESPIRATORY TECHNICIAN WOUND CARE RECEIVED CONSULT FOR SACRAL EXCORIATION. REGISTERED RESPIRATORY TECHNICIAN WILL DEFER TO SURGICAL TEAM FOLLOWING PATIENT AT THIS TIME FOR EVALUATION OF THE SACRAL EXCORIATIONS.
[2017-03-28] MEDS ORDERED: POTASSIUM CHLORIDE 20 MEQ TAB.PRT.SR PO ONE (11:30)
[2017-03-28 12:00] VITALS: BP 88/46
[2017-03-28] MEDS: CEFEPIME 1 GM in IV D5W 50 ML IV SCH (13:44)
[2017-03-28] MEDS ORDERED: HEPARIN SODIUM, PORCINE 1,000 UNIT/ML VIAL ONE (14:30)
[2017-03-28] MEDS ORDERED: LIDOCAINE 0.5% HCL 50 ML VIAL ONE (14:30)
--- NOTE | 2017-03-28 15:21 | NUR ---
RN NOTES [facility] ARM[facility] AND DR BAUER NOTIFIED OF PTS PT AND INR RESULTS.
[2017-03-28] MEDS ORDERED: FENTANYL PF 100MCG/2ML AMPUL ONE (15:25)
[2017-03-28 16:00] VITALS: BP 97/61
[2017-03-28] MEDS: RENAL NOVASOURCE 1,000 ML BOTTLE GT PRN (16:31)
[2017-03-28] MEDS: LEVOFLOXACIN 500 MG /D5W 100ML 500 MG in PREMIX 1 EA IV SCH (18:05)
--- NOTE | 2017-03-28 18:14 | NUR ---
RN NOTES PT TOLERATED PROCEDURE, PERMACATH PLACED RIGHT UPPER CHEST, NO BLEEDING NOTED ON DRESSING. TUBE FEEDING RESTARTED. PT IN NO DISTRESS. WILL ENDORSE TO ONCOMING SHIFT.
--- NOTE | 2017-03-28 19:30 | NUR ---
SALES REPRESENTATIVE GIRLS' APPAREL INITIAL NOTE PT RECEIVED RESTING IN BED WITH DAUGHTER AT BEDSIDE. A/O X1-2, NONVERBAL BUT ABLE TO MOUTH SOME WORDS. ON MECH VENT WITH SETTINGS WELL TOLERATED AND SATURATING 100%. TELE- 67 A-FIB WITH BBB . ON ISOLATION PRECAUTIONS FOR MRSA NARES. GTUBE FEEDING WELL TOLERATED, FLUSHING WELL WITHOUT RESIDUALS NOTED. GTUBE SITE CLEAN, DRY AND INTACT. IV RFA AND L HAND CLEAN, PATENT AND FLUSHING WELL. HOB ELEVATED AND ON ASPIRATION PRECAUTIONS. NEW RIGHT CHEST WALL PERMACATH PLACED TODAY WITH SITE CLEAN, NO BLEEDING, NO REDNESS AND NO C/O PAIN OR DISCOMFORT NOTED AT THIS TIME. COLOSTOMY BAG PLACED OVER OLD GTUBE SITE DRAINING BY GRAVITY IN PLACE AT THIS TIME. CALL LIGHT WITHIN REACH. WILL CONTINUE TO MONITOR.
[2017-03-28 20:00] VITALS: BP 93/32
--- NOTE | 2017-03-28 20:54 | NUR ---
PT IS TRACHED ON VENT ON NOTED SETTINGS. NO RESP DISTRESS NOTED. PT TOLERATING VENT SETTINGS. SMALL AMT OF THICK WHITE SECRETIONS. VENT ALARMS SET AND AUDIBLE. VENT PLUGGED INTO RED OUTLET. WILL CONTINUE TO MONITOR. Addendum: 03/28/17 at 2055 by CAROL CROSS RT Amended: Links added.
[2017-03-29] VITALS (7 sets, daily range): BP systolic 89–110; BP diastolic 37–54
[2017-03-29] MEDS: IPRATROPIUM NEB FS 0.5 MG/2.5 ML AMPUL.NEB NEB SCH ×4 (01:54→19:42)
[2017-03-29] MEDS: ALBUTEROL FS 2.5 MG/0.5 ML VIAL.NEB NEB SCH ×4 (01:54→19:43)
[2017-03-29] MEDS: ERYTHROMYCIN ETHYLSUCCINATE 200 MG/5 ML SUSPENSION GT SCH ×3 (05:25→21:25)
[2017-03-29] MEDS: MIDODRINE HCL (5MG) 5 MG TABLET PO SCH ×3 (05:26→21:26)
[2017-03-29] MEDS: METRONIDAZOLE 500MG/ NS 100ML 500 MG in PREMIX 1 EA IV SCH ×3 (06:13→23:30)
--- NOTE | 2017-03-29 06:52 | NUR ---
ARBORER CLOSING NOTE PT REMAINED STABLE DURING SHIFT. DAUGHTER AT BEDSIDE THROUGHOUT THE NIGHT. VENT SETTINGS WELL TOLERATED. ISOLATION PRECAUTIONS OBSERVED. TELE- A-FIB CONTROLLED. COLOSTOMY BAG IN PLACE AND DRAINING. GTUBE FEEDING WELL TOLERATED WITHOUT RESIDUALS. ALL DUE MEDS GIVEN ORDERED AND WELL TOLERATED. ALL NEEDS ATTENDED TO PROMPTLY.WILL ENDORSE TO NEXT SHIFT FOR CONTINUITY OF CARE.
[2017-03-29 06:54] LABS: BASOPHILS # (AUTO) 0.1 /CMM (0.0-0.2); BASOPHILS % (AUTO) 0.5 % (0.0-2.0); EOSINOPHILS # (AUTO) 0.2 /CMM (0.0-0.7); EOSINOPHILS % (AUTO) 1.6 % (0.0-6.0); HEMATOCRIT 22 % (33-45); HEMOGLOBIN 7.4 g/dL (11.5-14.8); LYMPHOCYTES # (AUTO) 1.9 /CMM (0.8-4.8); LYMPHOCYTES % (AUTO) 17.1 % (20.0-44.0); MEAN CORPUSCULAR HEMOGLOBIN 35 PG (26.0-33.0); MEAN CORPUSCULAR HGB CONC 34 g/dl (31.0-36.0); MEAN CORPUSCULAR VOLUME 104 fL (82-100); MONOCYTES # (AUTO) 0.6 /CMM (0.1-1.30); MONOCYTES % (AUTO) 5.2 % (2.0-12.0); NEUTROPHILS # (AUTO) 8.3 /CMM (1.8-8.9); NEUTROPHILS % (AUTO) 75.6 % (43.0-81.0); PLATELET COUNT (AUTO) 149 /CMM (150-450); RDW COEFFICIENT OF VARIATION 27.8 (11.5-15.0); WHITE BLOOD COUNT (AUTO) 10.9 K/uL (4.3-11.0)
--- NOTE | 2017-03-29 07:00 | NUR ---
RN OPENING NOTES RECV'D REPORT FROM NOC RN. PT AWAKE NONVERBAL, MOVES UPPER EXT WEAK. HOB ELEVATED NOVASOURCE 30ML/HR GT. AFIB BBB 70'S. VENT TRACH. COLOSTOMY BAG INTACT. SACRAL DECUB STAGE IV. SPECIALTY MATTRESS, HEEL FLOATED. RF 20G AND LEFT INDEX FINGER 20G. RUC PERMACATH. NO S/S DISTRESS AT PRESENT. DTR AT BEDSIDE ANS QUESTIONS. K=3.4. CALL LIGHT IN REACH. SIDE RAILS UP X2. BED IN LOW LOCKED POSITION.
[2017-03-29 07:36] LABS: CALCIUM, SERUM 7.8 mg/dL (8.5-10.1); CARBON DIOXIDE 21 mmol/L (21-32); CHLORIDE 102 mmol/L (98-107); CREATININE 2.9 mg/dL (0.6-1.3); GLUCOSE 149 mg/dL (74-106); PHOSPHORUS 5.2 mg/dL (2.5-4.9); POTASSIUM 3.4 mmol/L (3.5-5.1); SODIUM SERUM 137 mmol/L (136-145); UREA NITROGEN, BLOOD 82 mg/dL (7-18)
[2017-03-29] MEDS: ACIDOPHILUS/BULGARICUS 1 EACH TAB.CHEW GT SCH ×2 (08:11→21:26)
[2017-03-29] MEDS: LEVETIRACETAM SOL (5 ML) 100 MG/ML UDC GT SCH ×2 (08:11→21:26)
[2017-03-29] MEDS: VIT B CMPLX 3/FA/VIT C/BIOTIN 1 TAB TABLET GT SCH (08:11)
[2017-03-29] MEDS: Z GUARD REMEDY 2 OZ OINT TP SCH (08:12)
[2017-03-29] MEDS: CALCITRIOL ORAL SOLUTION 1 MCG/ML GT SCH (08:12)
[2017-03-29] MEDS: HYDROGEL DRESSING 90 GM TUBE TP SCH (08:12)
[2017-03-29] MEDS: ZINC SULFATE 220 MG CAPSULE PO SCH (08:12)
[2017-03-29] MEDS: MUPIROCIN OINT 2% 22 GM TUBE SCH ×2 (08:12→21:27)
[2017-03-29] MEDS: DIGOXIN INJ 0.5 MG/2 ML AMPUL IV SCH (13:08)
[2017-03-29] MEDS: CEFEPIME 1 GM in IV D5W 50 ML IV SCH (14:18)
--- NOTE | 2017-03-29 17:45 | NUR ---
RN CLOSING NOTE PT AWAKE NONVERBAL, MOVES UPPER EXT WEAK. HOB ELEVATED NOVASOURCE 30ML/HR GT. AFIB BBB 70'S. VENT TRACH. COLOSTOMY BAG INTACT. SACRAL DECUB STAGE IV. SPECIALTY MATTRESS, HEEL FLOATED. RF 20G AND LEFT INDEX FINGER 20G. RUC PERMACATH. NO S/S DISTRESS AT PRESENT. DTR AT BEDSIDE ANS QUESTIONS. CALL LIGHT IN REACH. SIDE RAILS UP X2. BED IN LOW LOCKED POSITION. WILL ENDORSE TO NOC RN.
[2017-03-29] MEDS: ONDANSETRON HCL/PF 4 MG/2 ML VIAL IV PRN (17:58)
--- NOTE | 2017-03-29 19:30 | NUR ---
BOND UNDERWRITER INITIAL NOTE PT RECEIVED RESTING IN BED WITH DAUGHTER AT BEDSIDE. A/O X1-2, NONVERBAL BUT ABLE TO MOUTH SOME WORDS. ON MECH VENT WITH SETTINGS WELL TOLERATED AND SATURATING 100%. TELE- 86 A-FIB WITH BBB . GTUBE FEEDING OFF AT THIS TIME. GTUBE CLAMPED WITHOUT RESIDUALS NOTED AND FLUSHING WELL.NO C/O NAUSEA OR VOMIT AT THIS TIME. GTUBE SITE CLEAN, DRY AND INTACT. IV RFA AND L HAND CLEAN, PATENT AND FLUSHING WELL. HOB ELEVATED AND ON ASPIRATION PRECAUTIONS. NEW RIGHT CHEST WALL PERMACATH SITE CLEAN, NO BLEEDING, NO REDNESS AND NO C/O PAIN OR DISCOMFORT NOTED AT THIS TIME. COLOSTOMY BAG PLACED OVER OLD GTUBE SITE DRAINING BY GRAVITY IN PLACE AT THIS TIME. CALL LIGHT WITHIN REACH. WILL CONTINUE TO MONITOR.
[2017-03-29] MEDS: ACETAMINOPHEN 650 MG/20.3 ML UDC GT PRN (21:25)
[2017-03-29] MEDS: RENAL NOVASOURCE 1,000 ML BOTTLE GT PRN (21:53)
[2017-03-30] VITALS (7 sets, daily range): BP systolic 82–128; BP diastolic 33–81
[2017-03-30] MEDS: ALBUTEROL FS 2.5 MG/0.5 ML VIAL.NEB NEB SCH ×4 (02:04→19:02)
[2017-03-30] MEDS: IPRATROPIUM NEB FS 0.5 MG/2.5 ML AMPUL.NEB NEB SCH ×4 (02:04→19:02)
[2017-03-30] MEDS: ERYTHROMYCIN ETHYLSUCCINATE 200 MG/5 ML SUSPENSION GT SCH ×3 (04:25→21:41)
[2017-03-30] MEDS: MIDODRINE HCL (5MG) 5 MG TABLET PO SCH ×3 (04:29→21:41)
[2017-03-30] MEDS: METRONIDAZOLE 500MG/ NS 100ML 500 MG in PREMIX 1 EA IV SCH (06:22)
--- NOTE | 2017-03-30 06:36 | NUR ---
DIRECTOR OF EXHIBITS CLOSING NOTE PT REMAINED STABLE DURING SHIFT. NO C/O NAUSEA/ VOMIT THROUGHOUT THE PORTABLE ROUTER OPERATOR. HOB ELEVATED. GTUBE FEEDING RESUMED AND WELL TOLERATED WITHOUT RESIDUALS NOTED. ALL NEEDS ATTENDED TO PROMPTLY. ALL DUE MEDS GIVEN ORDERED AND WELL TOLERATED. KEPT CLEAN AND DRY. CALL LIGHT WITHIN REACH. WILL ENDORSE TO NEXT SHIFT FOR CONTINUITY OF CARE.
--- NOTE | 2017-03-30 07:00 | NUR ---
RN NOTES RECV'D REPORT FROM NOC RN. NO CHANGES OVER NIGHT. OBTUNDED. NONVERBAL. AFIB CONTROLLED TELE. VENT TRACH. TUBE FEED. IV ABX. PLAN FOR SNF D/C PENDING OUTPATIENT DIALYSIS ARRANGEMENTS AND HEP PANEL RESULTS. RFA20G LEFT INDEX FINGER 20G. [facility] HD CATH. COCCYX DRSG CDI. CALL LIGHT IN REACH. BED LOW LOCKED POSITION. FAMILY AT BEDSIDE. WILL CONT TO MONITOR.
[2017-03-30 07:25] LABS: CALCIUM, SERUM 8.3 mg/dL (8.5-10.1); CARBON DIOXIDE 21 mmol/L (21-32); CHLORIDE 102 mmol/L (98-107); GLUCOSE 129 mg/dL (74-106); POTASSIUM 3.4 mmol/L (3.5-5.1); SODIUM SERUM 139 mmol/L (136-145)
[2017-03-30 07:26] LABS: UREA NITROGEN, BLOOD 85 mg/dL (7-18)
[2017-03-30] MEDS: ZINC SULFATE 220 MG CAPSULE PO SCH (08:09)
[2017-03-30] MEDS: VIT B CMPLX 3/FA/VIT C/BIOTIN 1 TAB TABLET GT SCH (08:09)
[2017-03-30] MEDS: CALCITRIOL ORAL SOLUTION 1 MCG/ML GT SCH (08:09)
[2017-03-30] MEDS: ACIDOPHILUS/BULGARICUS 1 EACH TAB.CHEW GT SCH ×2 (08:09→21:41)
[2017-03-30] MEDS: LEVETIRACETAM SOL (5 ML) 100 MG/ML UDC GT SCH ×2 (08:09→21:41)
[2017-03-30] MEDS: Z GUARD REMEDY 2 OZ OINT TP SCH (08:10)
[2017-03-30] MEDS: MUPIROCIN OINT 2% 22 GM TUBE SCH ×2 (08:10→21:45)
[2017-03-30] MEDS: HYDROGEL DRESSING 90 GM TUBE TP SCH (08:10)
[2017-03-30] MEDS: CEFEPIME 1 GM in IV D5W 50 ML IV SCH (14:12)
[2017-03-30] MEDS: METRONIDAZOLE 500 MG TABLET GT SCH ×2 (14:13→21:41)
[2017-03-30] MEDS: LEVOFLOXACIN 500 MG /D5W 100ML 500 MG in PREMIX 1 EA IV SCH (15:21)
--- NOTE | 2017-03-30 18:00 | NUR ---
RN CLOSING NOTES NO CHANGES. OBTUNDED. NONVERBAL. AFIB CONTROLLED TELE. VENT TRACH. TUBE FEED. IV ABX. PLAN FOR SNF D/C PENDING OUTPATIENT DIALYSIS ARRANGEMENTS AND HEP PANEL RESULTS. RFA20G LEFT INDEX FINGER 20G. [facility] [place] HD CATH. COCCYX DRSG CDI. CALL LIGHT IN REACH. BED LOW LOCKED POSITION. FAMILY AT BEDSIDE. WILL ENDORSE TO KATHLEEN VIERA.
[2017-03-30] MEDS: ALBUMIN 25% 25 GM in PREMIX 1 EA IV PRN ×2 (19:11→19:45)
--- NOTE | 2017-03-30 19:30 | NUR ---
PLASTERER HELPER INITIAL NOTES RECEIVED PATIENT AWAKE, ALERT, NON-VERBAL, VENT DEPENDENT. DIALYSIS NURSE AT BEDSIDE WITH DIALYSIS ONGOING. SON AT BEDSIDE. DENIES PAIN OR DISCOMFORT AT THIS TIME. NO RESPIRATORY DISTRESS NOTED. WITH VENT SETTINGS AC 14, VT 500, FIO2 40%, PEEP 0. SPO2 100%. ON TELE MONITOR AFIB CONTROLLED WITH BBB. TRACH C/D/I. SKIN WARM AND DRY TO TOUCH. WITH GT PATENT AND INTACT, GTF AT 30ML/HR, NO RESIDUAL NOTED. NOTED LAST AMIKACIN AND VANCO TROUGH ON 03/28. INFORMED PHARMACY, PER KAYCEE ADD TO [facility] AM LABS STAT RANDOM VANCO AND AMIKACIN TROUGH. INFORMED LAB REGARDING ORDERS. SIDE RAILS UP AND LOCKED. BED KEPT AT LOWEST POSITION. CALL LIGHT KEPT WITHIN EASY REACH. WILL CONTINUE TO MONITOR.
--- NOTE | 2017-03-30 19:50 | NUR ---
CLOTH GRADER AT BEDSIDE, PER CLOTH GRADER, THEY DON'T HAVE ENOUGH BLOOD. INFORMED PHARMACY KAYCEE. PER PHARMACY DON'T GIVE VANCO AND AMIKACIN TONIGHT.
--- NOTE | 2017-03-30 20:30 | NUR ---
SPOKE WITH LAB, PER LAB THEY HAVE ENOUGH BLOOD FOR CRISTINA PEÑA
--- NOTE | 2017-03-30 20:30 | NUR ---
PER LAB, THEY HAVE ENOUGH BLOOD FOR VANCO RANDOM AND THEY WILL RUN VANCO RANDOM. Addendum: 03/30/17 at 2101 by AUBREY FORD RN RONALD GARCIATE. WRONG PATIENT.
--- NOTE | 2017-03-30 21:03 | NUR ---
RELAYED VANCO RANDOM RESULT TO PHARMACY. OK TO GIVE VANCOMYCIN POST HD.
--- NOTE | 2017-03-30 21:07 | NUR ---
HD COMPLETED WITH 500ML OUT. TOLERATED WELL. WILL CONTINUE TO MONITOR.
[2017-03-30] MEDS: VANCOMYCIN 500 MG in IV D5W 100 ML IV PRN (21:41)
[2017-03-31] VITALS: BP 99/52
[2017-03-31] MEDS: IPRATROPIUM NEB FS 0.5 MG/2.5 ML AMPUL.NEB NEB SCH ×4 (01:19→19:26)
[2017-03-31] MEDS: ALBUTEROL FS 2.5 MG/0.5 ML VIAL.NEB NEB SCH ×4 (01:19→19:26)
[2017-03-31 04:00] VITALS: BP 96/41
[2017-03-31] MEDS: METRONIDAZOLE 500 MG TABLET GT SCH ×3 (04:58→21:37)
[2017-03-31] MEDS: ERYTHROMYCIN ETHYLSUCCINATE 200 MG/5 ML SUSPENSION GT SCH ×3 (04:58→21:00)
[2017-03-31] MEDS: MIDODRINE HCL (5MG) 5 MG TABLET PO SCH ×3 (05:00→21:39)
[2017-03-31 06:43] LABS: CALCIUM, SERUM 8.2 mg/dL (8.5-10.1); CARBON DIOXIDE 27 mmol/L (21-32); CHLORIDE 103 mmol/L (98-107); CREATININE 2.3 mg/dL (0.6-1.3); GLUCOSE 143 mg/dL (74-106); SODIUM SERUM 141 mmol/L (136-145); UREA NITROGEN, BLOOD 56 mg/dL (7-18)
--- NOTE | 2017-03-31 07:19 | NUR ---
RN NOTES RECEIVED PT IN STABLE CONDITION, A&01-2, CHRONIC VENT/TRACH DEPENDENT, TOLERATING VENT SETTINGS WELL. NO SOB OR DISTRESS NOTED. A FIB ON THE TELE MONITOR HR 78. GTF AT 30ML/HR TOLERATING WELL, RESIDUAL OF 5ML. LFA 20G, L INDEX FINGER 20G, IV SITE DRY AND INTACT WITH NO IVF. BED LOCKED AND IN LOWEST POSITION, SIDE RAILS UPX3, CALL LIGHT WITHIN REACH WILL CONT TO MONITOR.
--- NOTE | 2017-03-31 07:32 | NUR ---
TELE CLOSING NOTES NO SIGNIFICANT CHANGES OVERNIGHT. ALL NEEDS ANTICIPATED AND MET. TOLERATED GTF AT 30ML/HR. GCF COVERED WITH COLOSTOMY BAG, WITH VERY MINIMAL OUTPUT. NO RESPIRATORY DISTRESS NOTED. NO PAIN OR DISCOMFORT. SKIN WARM AND DRY TO TOUCH. AFIB CONTROLLED WITH BBB ON TELE MONITOR. KEPT CLEAN AND DRY. TURNED AND REPOSITIONED Q2 AND PRN. WOUND TX DONE ORDERED. ALL DUE MEDS GIVEN ORDERED. SIDE RAILS UP AND LOCKED. BED KEPT AT LOWEST POSITION. CALL LIGHT KEPT WITHIN EASY REACH. CONTINUITY OF CARE ENDORSED TO AM NURSE.
[2017-03-31 08:00] VITALS: BP 99/48
[2017-03-31] MEDS: LEVETIRACETAM SOL (5 ML) 100 MG/ML UDC GT SCH ×2 (08:06→21:36)
[2017-03-31] MEDS: CALCITRIOL ORAL SOLUTION 1 MCG/ML GT SCH (08:06)
[2017-03-31] MEDS: ACIDOPHILUS/BULGARICUS 1 EACH TAB.CHEW GT SCH ×2 (08:06→21:37)
[2017-03-31] MEDS: VIT B CMPLX 3/FA/VIT C/BIOTIN 1 TAB TABLET GT SCH (08:06)
[2017-03-31] MEDS: ZINC SULFATE 220 MG CAPSULE PO SCH (08:06)
[2017-03-31] MEDS: Z GUARD REMEDY 2 OZ OINT TP SCH (08:07)
[2017-03-31] MEDS: HYDROGEL DRESSING 90 GM TUBE TP SCH (08:07)
[2017-03-31] MEDS: MUPIROCIN OINT 2% 22 GM TUBE SCH ×2 (08:07→21:53)
[2017-03-31] MEDS: RENAL NOVASOURCE 1,000 ML BOTTLE GT PRN (08:14)
[2017-03-31] MEDS ORDERED: EPOETIN ALFA (10,000 UNIT) 10,000 UNIT/ML VIAL IV ONE (11:30)
[2017-03-31 11:57] LABS: HEMOGLOBIN 6.9 g/dL (11.5-14.8)
[2017-03-31 12:00] VITALS: BP 94/43
[2017-03-31] MEDS: DIGOXIN INJ 0.5 MG/2 ML AMPUL IV SCH (12:30)
[2017-03-31 16:00] VITALS: BP 88/43
--- NOTE | 2017-03-31 18:19 | NUR ---
RN NOTES PT REMAINED IN STABLE CONDITION THROUGHOUT THE SHIFT. TOLERATING DIALYSIS, HR CONTROLLED. TOLERATING VENT SETTINGS, NO DISTRESS NOTED. GTF @30ML TOLERATING WELL. SON AT BEDSIDE. ALL NEEDS MET, PT CLEANED/TURNED/REPOSITION/SUCTIONED. BED LOCKED AND IN LOWEST POSITION, SIDE RAILS UPX3, WILL ENDORSE TO ONCOMING SHIFT.
--- NOTE | 2017-03-31 19:30 | NUR ---
TRANSMISSION REBUILDER INITIAL NOTES RECEIVED PATIENT WITH AWAKE A/OX1, NON-VERBAL, VENT DEPENDENT. SON AT BEDSIDE. DENIES PAIN OR DISCOMFORT. NO RESPIRATORY DISTRESS NOTED, WITH VENT SETTINGS AC 14, TV 500, FIO2 40%, PEEP 0. SPO2 100%. SKIN WARM AND DRY TO TOUCH. ON TELE MONITOR AFIB CONTROLLED 78 WITH BBB. SEEN AND EXAMINED BY HYDRAULIC PRESS TENDER FOR DR. CAR VALENZUELA, NOTED WITH HGB 6.9, INFORMED EPOGEN WAS GIVEN EARLIER TODAY. SIDE RAILS UP AND LOCKED. BED KEPT AT LOWEST POSITION. CALL LIGHT KEPT WITHIN EASY REACH. WILL CONTINUE TO MONITOR.
[2017-03-31 20:00] VITALS: BP 95/35
--- NOTE | 2017-03-31 21:00 | NUR ---
NON-ADMIN ERYTHROMYCIN SUSPENSION NOT GIVEN, MEDICATION UNAVAILABLE, INFORMED RN FINISHED STOCK INSPECTOR WITH NONE IN NIGHT LOCKER UNAVAILABLE.
[2017-03-31] MEDS: AMIKACIN 500 MG in IV D5W 100 ML IV PRN (21:36)
[2017-04-01] VITALS: BP 85/35
[2017-04-01] MEDS: ALBUTEROL FS 2.5 MG/0.5 ML VIAL.NEB NEB SCH ×4 (01:39→19:36)
[2017-04-01] MEDS: IPRATROPIUM NEB FS 0.5 MG/2.5 ML AMPUL.NEB NEB SCH ×4 (01:39→19:36)
[2017-04-01 04:00] VITALS: BP 85/32
[2017-04-01] MEDS: ERYTHROMYCIN ETHYLSUCCINATE 200 MG/5 ML SUSPENSION GT SCH ×3 (05:00→22:34)
[2017-04-01] MEDS: METRONIDAZOLE 500 MG TABLET GT SCH ×3 (05:15→22:34)
[2017-04-01] MEDS: MIDODRINE HCL (5MG) 5 MG TABLET PO SCH ×3 (05:16→22:35)
[2017-04-01 06:19] LABS: BASOPHILS % (AUTO) 0.3 % (0.0-2.0); HEMATOCRIT 21 % (33-45); LYMPHOCYTES # (AUTO) 1.4 /CMM (0.8-4.8); LYMPHOCYTES % (AUTO) 11.3 % (20.0-44.0); MEAN CORPUSCULAR HEMOGLOBIN 36 PG (26.0-33.0); MEAN CORPUSCULAR HGB CONC 33 g/dl (31.0-36.0); MEAN CORPUSCULAR VOLUME 108 fL (82-100); MONOCYTES % (AUTO) 7.8 % (2.0-12.0); NEUTROPHILS # (AUTO) 10.3 /CMM (1.8-8.9); NEUTROPHILS % (AUTO) 80.6 % (43.0-81.0); PLATELET COUNT (AUTO) 133 /CMM (150-450); RDW COEFFICIENT OF VARIATION 27.3 (11.5-15.0); WHITE BLOOD COUNT (AUTO) 12.8 K/uL (4.3-11.0)
[2017-04-01 06:28] LABS: RED BLOOD CELL COUNT(AUTO) 1.95 MIL/uL (4.0-5.2)
--- NOTE | 2017-04-01 06:29 | NUR ---
RECEIVED H/H RESULT 7.. PATIENT WITH NO ACTIVE BLEEDING. WILL RELAY TO AM SHIFT
[2017-04-01 06:33] LABS: CALCIUM, SERUM 8.3 mg/dL (8.5-10.1); CARBON DIOXIDE 31 mmol/L (21-32); CHLORIDE 104 mmol/L (98-107); CREATININE 2.2 mg/dL (0.6-1.3); GLUCOSE 143 mg/dL (74-106); MAGNESIUM 1.9 mg/dL (1.8-2.4); PHOSPHORUS 3.5 mg/dL (2.5-4.9); SODIUM SERUM 142 mmol/L (136-145); UREA NITROGEN, BLOOD 46 mg/dL (7-18)
--- NOTE | 2017-04-01 07:28 | NUR ---
CRIB PAD MAKER CLOSING NOTES NO SIGNIFICANT CHANGES OVERNIGHT. NO RESPIRATORY DISTRESS NOTED. TOLERATING VENT SETTINGS. TOLERATING GTF. NO ACTIVE BLEEDING NOTED. KEPT CLEAN AND DRY. TURNED AND REPOSITIONED Q2 AND PRN. WOUND TX DONE ORDERED. COLOSTOMY BAG REMOVED FROM GCF, SCANT DRAINAGE NOTED. ALL NEEDS ANTICIPATED AND MET. CALL LIGHT KEPT WITHIN EASY REACH. CONTINUITY OF CARE ENDORSED TO AM NURSE.
[2017-04-01 08:00] VITALS: BP 95/38
--- NOTE | 2017-04-01 08:00 | NUR ---
TELE1/RN AM SHIFT INITIAL NOTES RECEIVED PT AWAKE IN BED, PT A/O X 2, ABLE TO MOUTH WORDS TO VERBALIZED NEEDS. DENIES PAIN, NO GRIMACING OR ACUTE CHANGE OF CONDITION NOTED. ON VENTILATOR WITH RATES SET PRESCRIBED, SATURATING @ 95%, LUNG SOUNDS DIMINISHED, PT REFUSED TO BE SUCTIONED. ON TELE WITH CONTROLLED A-FIB WITH BBB, HR 81. GT FEEDING ON GOING @ 30CC/HR, NO GASTRIC RESIDUAL NOTED, FLUSHED, PATENT. NOTED WITH DISTENDED ABDOMEN. PT IS COMFORTABLE AT THIS TIME, SCHEDULED AM MEDS TO BE GIVEN. CL WITHIN REACHED, SAFETY MAINTAINED AND ISOLATION OBSERVED. ON GOING MONITORING.
[2017-04-01 08:01] LABS: BAND % (MANUAL) 9 % (0.0-5.0); EOSINOPHILS % (MANUAL) 1 % (0-4); LYMPHOCYTES % (MANUAL) 3 % (16-48); MONOCYTES % (MANUAL) 8 % (0-11.0); NEUTROPHILS % (MANUAL) 79 (42-76)
[2017-04-01] MEDS: CALCITRIOL ORAL SOLUTION 1 MCG/ML GT SCH (08:40)
[2017-04-01] MEDS: VIT B CMPLX 3/FA/VIT C/BIOTIN 1 TAB TABLET GT SCH (08:40)
[2017-04-01] MEDS: LEVETIRACETAM SOL (5 ML) 100 MG/ML UDC GT SCH ×2 (08:40→22:34)
[2017-04-01] MEDS: ZINC SULFATE 220 MG CAPSULE PO SCH (08:40)
[2017-04-01] MEDS: ACIDOPHILUS/BULGARICUS 1 EACH TAB.CHEW GT SCH ×2 (08:40→22:34)
[2017-04-01] MEDS: HYDROGEL DRESSING 90 GM TUBE TP SCH (08:41)
[2017-04-01] MEDS: MUPIROCIN OINT 2% 22 GM TUBE SCH (08:41)
[2017-04-01] MEDS: Z GUARD REMEDY 2 OZ OINT TP SCH (08:41)
--- NOTE | 2017-04-01 10:13 | NUR ---
TELE1/COMMERCIAL INTERNS[employer]IP OF CARE REPORT GIVEN TO NURSE EDY, ENDORSED TO CONTINUE CARE. CL WITHIN REACHED, SAFETY MAINTAINED AND ISOLATION OBSERVED.
--- NOTE | 2017-04-01 10:25 | NUR ---
WHITNEY RN NOTE Received bedside SBAR report on the patient. Patient is A/O x1,non verbal, but coherent. Patient is awake, responsive to verbal stimuli and light touch. Patient is in bed, bes is locked, in lowest position, side rails up X 3. Patient in high Ross's. Ventilator setting as prescribed. Call light within reach. Patient educated to call for assistance using the call light will continue to assess/monitor throughout the shift.
[2017-04-01 12:00] VITALS: BP 90/38
[2017-04-01] MEDS: LEVOFLOXACIN 500 MG /D5W 100ML 500 MG in PREMIX 1 EA IV SCH (15:41)
[2017-04-01 16:00] VITALS: BP 100/62
[2017-04-01] MEDS: RENAL NOVASOURCE 1,000 ML BOTTLE GT PRN (17:25)
--- NOTE | 2017-04-01 18:55 | NUR ---
WHITNEY RN CLOSING NOTE Patient is A/O x1,non verbal, but coherent. Patient is awake, responsive to verbal stimuli and light touch. Patient is in bed, bed is locked, in lowest position, side rails up X 3. Patient in high Ross's. Ventilator setting as prescribed. Call light within reach. Patient educated to call for assistance using the call light will endorse to the night warehouse manager RN for CONNOR.
[2017-04-01 20:00] VITALS: BP 96/45
--- NOTE | 2017-04-01 20:00 | NUR ---
TELERN ABLE TO DECLOGGED GT WITH WARM WATER. TOTAL SETUP CHANGED. NOVOSOURVE AT 30 CC/HR INFUSING WELL, NEEDED TO FLUSH Q 3 TO 4 HRS WITH WARM WATER TO PREVENT CLOGGING.
--- NOTE | 2017-04-01 22:15 | NUR ---
TELERN FULLY BATHED, REMAINS UNCHANGED. DUE MEDS ADMINISTERED.
--- NOTE | 2017-04-01 23:26 | NUR ---
RITIKA FULLY AWAKE, NONVERBAL, VENT DEPENDENT. FEEDINGS HELD, OCCLUDED. UNABLE TO FLUSH FOR NOW. NO RESPIRATORY DISTRESS. TO CONTINUE. Addendum: 04/01/17 at 2328 by APRIL MONROY RN TIME OF OCCURENCE WAS 1929
[2017-04-02] VITALS (8 sets, daily range): BP systolic 80–137; BP diastolic 22–39
[2017-04-02] MEDS: IPRATROPIUM NEB FS 0.5 MG/2.5 ML AMPUL.NEB NEB SCH ×4 (00:51→20:27)
[2017-04-02] MEDS: ALBUTEROL FS 2.5 MG/0.5 ML VIAL.NEB NEB SCH ×4 (00:51→20:27)
[2017-04-02] MEDS: ERYTHROMYCIN ETHYLSUCCINATE 200 MG/5 ML SUSPENSION GT SCH ×3 (05:34→20:59)
[2017-04-02] MEDS: MIDODRINE HCL (5MG) 5 MG TABLET PO SCH ×3 (05:35→21:01)
[2017-04-02] MEDS: METRONIDAZOLE 500 MG TABLET GT SCH ×3 (05:35→21:00)
[2017-04-02 06:40] LABS: CALCIUM, SERUM 8.4 mg/dL (8.5-10.1); CARBON DIOXIDE 30 mmol/L (21-32); CHLORIDE 107 mmol/L (98-107); CREATININE 2.8 mg/dL (0.6-1.3); GLUCOSE 126 mg/dL (74-106); POTASSIUM 3.1 mmol/L (3.5-5.1); SODIUM SERUM 146 mmol/L (136-145); UREA NITROGEN, BLOOD 55 mg/dL (7-18)
--- NOTE | 2017-04-02 06:55 | NUR ---
TELERN ABLE TO TOLERATE GT FEEDINGS, NO RESIDUALS. TWICE LOOSE BM FOR THIS SHIFT.
[2017-04-02] MEDS: ALBUMIN 25% 25 GM in PREMIX 1 EA IV PRN (08:01)
[2017-04-02] MEDS: ZINC SULFATE 220 MG CAPSULE PO SCH (09:06)
[2017-04-02] MEDS: CALCITRIOL ORAL SOLUTION 1 MCG/ML GT SCH (09:06)
[2017-04-02] MEDS: LEVETIRACETAM SOL (5 ML) 100 MG/ML UDC GT SCH ×2 (09:06→21:00)
[2017-04-02] MEDS: ACIDOPHILUS/BULGARICUS 1 EACH TAB.CHEW GT SCH ×2 (09:06→21:00)
[2017-04-02] MEDS: Z GUARD REMEDY 2 OZ OINT TP SCH (09:07)
[2017-04-02] MEDS: HYDROGEL DRESSING 90 GM TUBE TP SCH (09:07)
[2017-04-02] MEDS: VIT B CMPLX 3/FA/VIT C/BIOTIN 1 TAB TABLET GT SCH (09:07)
[2017-04-02] MEDS ORDERED: POTASSIUM CHLORIDE 20 MEQ POWDER PACKET GT ONE (09:30)
[2017-04-02] MEDS: DIGOXIN INJ 0.5 MG/2 ML AMPUL IV SCH (12:15)
[2017-04-02] MEDS: AMIKACIN 500 MG in IV D5W 100 ML IV PRN (15:53)
--- NOTE | 2017-04-02 19:00 | NUR ---
pt in stable condition.no s/s of distress noted.no sob noted.All m.d orders noted and carried out .safety measures in place bed in low and locked position.
--- NOTE | 2017-04-02 19:15 | NUR ---
TELE/RN NOTES RECEIVED PT. LYING IN BED, AWAKE, ALERT AND ORIENTED TO SELF. PT. IS VENT/TRACH DEPENDENT. BREATHING EVEN AND UNLABORED. NO SOB, RESPIRATORY DISTRESS OR COMPLAINTS OF PAIN NOTED AT THIS TIME. PT. WITH EXTERNAL PARADI TENDER PRESENT AND INTACT. CURRENT RHYTHM = AFIB WITH BBB HR 76. PT. WITH RIGHT FOREARM 20 GAUGE IV SALINE LOCK PRESENT, PATENT AND INTACT. PT. WITH RIGHT CHEST WALL HD CATH PRESENT AND INTACT. PT. WITH G-TUBE PRESENT AND INTACT. PER DAYSHIFT NURSE PT. RECENTLY VOMITED SEVERAL TIMES AND FEEDING WAS PLACED ON HOLD. WILL CONTINUE TO MONITOR PT. FOR EPISODES OF EMESIS AND WILL RESTART TUBE FEEDING ORDERED. PT. WITH PREVIOUS GT SITE DRESSING PRESENT, CLEAN, DRY AND INTACT. NO DRAINAGE NOTED. PT. WITH FAMILY MEMBERS PRESENT AT BEDSIDE. BED LOCKED AND IN LOWEST POSITION, SIDE RAILS UP X3, CALL LIGHT WITHIN REACH, WILL CONTINUE TO MONITOR.
[2017-04-02] MEDS: RENAL NOVASOURCE 1,000 ML BOTTLE GT PRN (22:17)
[2017-04-03] VITALS: BP 93/36
[2017-04-03] MEDS: IPRATROPIUM NEB FS 0.5 MG/2.5 ML AMPUL.NEB NEB SCH ×4 (01:13→19:59)
[2017-04-03] MEDS: ALBUTEROL FS 2.5 MG/0.5 ML VIAL.NEB NEB SCH ×4 (01:13→20:00)
[2017-04-03 04:00] VITALS: BP 108/48
[2017-04-03] MEDS: ERYTHROMYCIN ETHYLSUCCINATE 200 MG/5 ML SUSPENSION GT SCH ×3 (05:00→21:59)
[2017-04-03] MEDS: METRONIDAZOLE 500 MG TABLET GT SCH ×3 (05:50→21:59)
[2017-04-03] MEDS: MIDODRINE HCL (5MG) 5 MG TABLET PO SCH ×3 (05:51→22:00)
--- NOTE | 2017-04-03 05:51 | NUR ---
TELE/RN NOTES UNABLE TO ADMINISTER TO PT. 0500 ERYTHROMYCIN MEDICATION ORDERED BECAUSE MEDICATION IS UNAVAILABLE, THE MEDICATION WAS NOT FOUND IN PT. BARTTTE. . SPOKE WITH NURSING ADMINISTRATOR PESTICIDE AND SHE STATED THE MEDICATION CAN NOT BE OVERRIDEN IT IS PROVIDED FROM PHARMACY. WILL FOLLOW UP WITH PHARMACY.
[2017-04-03 06:27] LABS: CALCIUM, SERUM 8.4 mg/dL (8.5-10.1); CARBON DIOXIDE 32 mmol/L (21-32); CHLORIDE 105 mmol/L (98-107); CREATININE 2.4 mg/dL (0.6-1.3); GLUCOSE 133 mg/dL (74-106); POTASSIUM 3.5 mmol/L (3.5-5.1); SODIUM SERUM 145 mmol/L (136-145); UREA NITROGEN, BLOOD 36 mg/dL (7-18)
--- NOTE | 2017-04-03 06:27 | NUR ---
TELE/RN NOTES PT. IS LYING IN BED RESTING. PT. IS VENT/TRACH DEPENDENT. BREATHING EVEN AND UNLABORED. NO SOB, RESPIRATORY DISTRESS OR COMPLAINTS OF PAIN NOTED AT THIS TIME. PT. WITH RIGHT FOREARM 20 GAUGE IV SALINE LOCK PRESENT, PATENT AND INTACT. PT. WITH RIGHT CHEST WALL HD CATH PRESENT AND INTACT. PT. WITH G-TUBE PRESENT AND INTACT ADMINISTERING TO PT. NOVASOURCE @ 30ML/HR. PT. TOLERATING WELL. NO RESIDUAL NOTED AT THIS TIME AND THROUGHOUT SHIFT. NO EPISODES OF EMESIS NOTED THROUGHOUT SHIFT. ALL PT. NEEDS MET. PT. OFFLOADED, TURNED AND REPOSITIONED Q2H AND NEEDED. BED LOCKED AND IN LOWEST POSITION, SIDE RAILS UP X3, CALL LIGHT WITHIN REACH, WILL ENDORSE TO DAYSHIFT NURSE FOR CONTINUITY OF CARE.
--- NOTE | 2017-04-03 07:34 | NUR ---
INDIRECT FIRE INFANTRYMAN OPENING RECEIVED PATIENT A/OX1-2 NODS YES AND NO TO QUESTIONS ASKED OF HER. PATIENT DENIES PAIN, SOB, DIFFICULTY BREATHING. PATIENT REPOSITIONED FOR INCREASED COMFORT. TUBE FEEDING RUNNING ORDERED NO RESIDUAL NOTED. DRESSING OVER OLD GT SITE INTACT; WILL CONTINUE TO MONITOR. TELE AFIB CONTROLLED 70'S. SKIN CARE ORDERED. CONTINUING TO MONITOR. KEEPING CLEAN AND DRY. OFFLOADING HEELS AND ELBOWS. PATIENT APPEARS STABLE AT THIS TIME. BED LOWERED AND LOCKED, RAILS UPX3 FOR SAFETY. BED ALARM ON. WILL ROUND Q2H OR LESS PER NEEDS. HOB ELEVATED FOR ASPIRATION PRECAUTIONS.
[2017-04-03 08:00] VITALS: BP 105/45
[2017-04-03] MEDS: HYDROGEL DRESSING 90 GM TUBE TP SCH (08:47)
[2017-04-03] MEDS: Z GUARD REMEDY 2 OZ OINT TP SCH (08:47)
[2017-04-03] MEDS: ACIDOPHILUS/BULGARICUS 1 EACH TAB.CHEW GT SCH ×2 (08:49→21:59)
[2017-04-03] MEDS: ZINC SULFATE 220 MG CAPSULE PO SCH (08:49)
[2017-04-03] MEDS: VIT B CMPLX 3/FA/VIT C/BIOTIN 1 TAB TABLET GT SCH (08:49)
[2017-04-03] MEDS: LEVETIRACETAM SOL (5 ML) 100 MG/ML UDC GT SCH ×2 (08:49→21:59)
[2017-04-03] MEDS: CALCITRIOL ORAL SOLUTION 1 MCG/ML GT SCH (08:50)
[2017-04-03 12:00] VITALS: BP 104/45
[2017-04-03] MEDS: LEVOFLOXACIN 500 MG /D5W 100ML 500 MG in PREMIX 1 EA IV SCH (14:17)
[2017-04-03 16:00] VITALS: BP 89/31
[2017-04-03] MEDS: ONDANSETRON HCL/PF 4 MG/2 ML VIAL IV PRN (18:52)
[2017-04-03] MEDS: Z GUARD REMEDY 2 OZ OINT TP PRN (18:57)
--- NOTE | 2017-04-03 18:59 | NUR ---
ARTIFICIAL FLOWER MAKER CLOSING PATIENT STABLE THROUGHOUT DAY. ALL DUE MEDS GIVEN AND ALL NEEDS MET. NO EPISODE OF EMESIS TODAY OR LAST NIGHT PER RN. PATIENT FAMILY MEMBERS AT BEDSIDE AT THIS TIME AND STATE PATIENT CONTINUES TO ASK FOR "AGUA". PATIENT HAD 1 EPISODE OF EMESIS SINCE FAMILY HAS BEEN HERE. EDUCATED FAMILY ON NPO AND ASPIRATION PRECAUTIONS. THEY STATED UNDERSTANDING AND THAT THEY DID NOT GIVE FLUIDS TO PATIENT. WILL ENDORSE TO WATCH FAMILY CLOSELY. PRN ZOFRAN GIVEN TO PATIENT, RESIDUAL STILL AT 0ML AND PATIENT HOB ELEVATED MORE. TRACH AREA CLEANED AND ALL DRESSINGS CHANGED. PATIENT VS STABLE AND CARE ENDORSED TO RN FOR CONNOR Addendum: 04/04/17 at 0955 by JENNIFER NDIAYE RN RESIDUAL AT 10-20*ML
[2017-04-03 20:00] VITALS: BP 91/36
--- NOTE | 2017-04-03 20:00 | NUR ---
RN OPENING NOTES: RECEIVED PT ON BED ASLEEP AROUSABLE. ON MECH VENT, SETTINGS ORDERED; TOLERATED WELL NOT IN APPARENT DISTRESS. IV ACCESS INTACT, KEPT SL. GT INTACT, WITH FEEDING ONGOING WITH NOTED 30-40CC RESIDUALS AT THIS TIME. ASPIRATION PRECAUTIONS ENSURED AT ALL TIMES. SKIN PROTECTIVE MEASURES ENSURED. SAFETY MEASURES ENSURED. FAMILY MEMBER AT BEDSIDE AT THIS TIME. CONTINUOUSLY MONITORED.
--- NOTE | 2017-04-03 22:30 | NUR ---
RN NOTES; DR CAR VALENZUELA'S CO FOUNDER AND CHAIRMAN IN, SEEN AND EXAMINED PATIENT. INFORMED ABOUT RESIDUALS OF 30-40CC AT THIS TIME. WITH EPISODE OF VOMITING IN AM. NO NEW ORDERS NOTED AT THIS TIME. CONTINUOUSLY MONITORED.
[2017-04-04] VITALS (10 sets, daily range): BP systolic 81–127; BP diastolic 29–97
[2017-04-04] MEDS: IPRATROPIUM NEB FS 0.5 MG/2.5 ML AMPUL.NEB NEB SCH ×4 (01:50→19:57)
[2017-04-04] MEDS: ALBUTEROL FS 2.5 MG/0.5 ML VIAL.NEB NEB SCH ×4 (01:51→19:57)
[2017-04-04] MEDS: RENAL NOVASOURCE 1,000 ML BOTTLE GT PRN (05:51)
[2017-04-04] MEDS: ERYTHROMYCIN ETHYLSUCCINATE 200 MG/5 ML SUSPENSION GT SCH ×3 (05:52→20:28)
[2017-04-04] MEDS: MIDODRINE HCL (5MG) 5 MG TABLET PO SCH ×3 (05:53→20:29)
[2017-04-04] MEDS: METRONIDAZOLE 500 MG TABLET GT SCH ×3 (05:53→20:28)
[2017-04-04] MEDS: ACETAMINOPHEN 650 MG/20.3 ML UDC GT PRN ×2 (05:54→17:52)
[2017-04-04 06:49] LABS: BASOPHILS % (AUTO) 0.3 % (0.0-2.0); EOSINOPHILS % (AUTO) 0.2 % (0.0-6.0); HEMATOCRIT 21 % (33-45); LYMPHOCYTES # (AUTO) 2.2 /CMM (0.8-4.8); LYMPHOCYTES % (AUTO) 16.3 % (20.0-44.0); MEAN CORPUSCULAR HEMOGLOBIN 37 PG (26.0-33.0); MEAN CORPUSCULAR HGB CONC 33 g/dl (31.0-36.0); MEAN CORPUSCULAR VOLUME 111 fL (82-100); MONOCYTES # (AUTO) 1.4 /CMM (0.1-1.30); MONOCYTES % (AUTO) 10.3 % (2.0-12.0); NEUTROPHILS # (AUTO) 9.6 /CMM (1.8-8.9); NEUTROPHILS % (AUTO) 72.9 % (43.0-81.0); PLATELET COUNT (AUTO) 169 /CMM (150-450); RDW COEFFICIENT OF VARIATION 25.8 (11.5-15.0); WHITE BLOOD COUNT (AUTO) 13.2 K/uL (4.3-11.0)
--- NOTE | 2017-04-04 07:00 | NUR ---
RN CLOSING NOTES: PATIENT REMAINED NOT IN APPARENT DISTRESS ON BED. WITH NOTED SLIGHT FEVER AT 99.9, TYLENOL AND COOLING MEASURES WERE RENDERED. GT WITH RESIDUALS OF 120 AT THIS TIME. HELD FEEDING AND ENDORSED TO AM SHIFT AYLIN RODRIGUEZ. WOUND PHOTODOCUMENTATION FILED. NO FURTHER VOMITING NOTED. TRACH CARE RENDERED. ASPIRATION PRECAUTIONS ENSURED. CONTINUOUSLY MONITORED. ENDORSED TO AM SHIFT
[2017-04-04 07:07] LABS: ALANINE AMINOTRANSFERASE 10 U/L (12-78); ALKALINE PHOSPHATASE 233 U/L (46-116); ASPARTATE AMINOTRANSFERASE 34 U/L (15-37); BILIRUBIN,TOTAL 2.7 mg/dL (0.2-1.0); CALCIUM, SERUM 8.5 mg/dL (8.5-10.1); CARBON DIOXIDE 31 mmol/L (21-32); CHLORIDE 104 mmol/L (98-107); CREATININE 3.4 mg/dL (0.6-1.3); GLUCOSE 135 mg/dL (74-106); PHOSPHORUS 3.7 mg/dL (2.5-4.9); POTASSIUM 3.4 mmol/L (3.5-5.1); SODIUM SERUM 144 mmol/L (136-145); TOTAL PROTEIN, SERUM 5.4 g/dL (6.4-8.2); UREA NITROGEN, BLOOD 50 mg/dL (7-18)
--- NOTE | 2017-04-04 07:07 | NUR ---
BUILDING SURVEYOR OPENING RECEIVED PATIENT A/OX1-2 NODS YES AND NO TO QUESTIONS ASKED OF HER. PATIENT DENIES PAIN, SOB, DIFFICULTY BREATHING. PATIENT REPOSITIONED FOR INCREASED COMFORT. TUBE FEEDING RUNNING ORDERED NO RESIDUAL NOTED. DRESSING OVER OLD GT SITE INTACT; WILL CONTINUE TO MONITOR. TELE AFIB CONTROLLED 90'S. SKIN CARE ORDERED. CONTINUING TO MONITOR. KEEPING CLEAN AND DRY. OFFLOADING HEELS AND ELBOWS. PATIENT APPEARS STABLE AT THIS TIME. BED LOWERED AND LOCKED, RAILS UPX3 FOR SAFETY. BED ALARM ON. WILL ROUND Q2H OR LESS PER NEEDS. HOB ELEVATED FOR ASPIRATION PRECAUTIONS. NO EPISODES OF VOMITING PER RN LAST NIGHT
[2017-04-04 07:45] LABS: LYMPHOCYTES % (MANUAL) 19 % (16-48); MONOCYTES % (MANUAL) 7 % (0-11.0); NEUTROPHILS % (MANUAL) 74 (42-76)
--- NOTE | 2017-04-04 07:46 | NUR ---
RENTAL COORDINATOR NOTES PATIENT RESIDUAL 200 AT THIS TIME. FEEDING HELD. MESSAGE TO DR YOON TO NOTIFY. HOB ELEVATED FOR PATIENT
--- NOTE | 2017-04-04 09:27 | NUR ---
ARABIC LINGUIST NOTES HD RN AT BEDSIDE. WILL GIVE AM MEDICATIONS ONCE PATIENT COMPLETED WITH HD
[2017-04-04] MEDS: ALBUMIN 25% 25 GM in PREMIX 1 EA IV PRN (10:31)
--- NOTE | 2017-04-04 11:34 | NUR ---
CENTER MANAGER NOTES NOTIFIED DR ARMAS PATIENT HYOPTENSIVE AND HGB 7.[address] ARMAS ORDER 1 UNIT PRBC AND GIVE OVER 4 HOURS
[2017-04-04] MEDS: LEVETIRACETAM SOL (5 ML) 100 MG/ML UDC GT SCH ×2 (11:58→20:28)
[2017-04-04] MEDS: ACIDOPHILUS/BULGARICUS 1 EACH TAB.CHEW GT SCH ×2 (11:58→20:28)
[2017-04-04] MEDS: HYDROGEL DRESSING 90 GM TUBE TP SCH (11:59)
[2017-04-04] MEDS: Z GUARD REMEDY 2 OZ OINT TP SCH (11:59)
[2017-04-04] MEDS: CALCITRIOL ORAL SOLUTION 1 MCG/ML GT SCH (11:59)
[2017-04-04] MEDS: ZINC SULFATE 220 MG CAPSULE PO SCH (11:59)
[2017-04-04] MEDS: VIT B CMPLX 3/FA/VIT C/BIOTIN 1 TAB TABLET GT SCH (11:59)
--- NOTE | 2017-04-04 12:00 | NUR ---
MANAGER HOUSEKEEPING NOTES RECHECKED RESIDUAL 120 AT THIS TIME. WILL RECHECK
--- NOTE | 2017-04-04 12:01 | NUR ---
BURNER TENDER NOTES FAMILY AT BEDSIDE. RE EDUCATED NOTHING BY MOUTH. NO EMESIS AT THIS TIME. CALLED AND SPOKE WITH GRANT PHARMACIST TO HAVE ERYTHROMYCIN BROUGHT UP
[2017-04-04] MEDS ORDERED: EPOETIN ALFA (10,000 UNIT) 10,000 UNIT/ML VIAL SQ ONE (12:30)
--- NOTE | 2017-04-04 12:46 | NUR ---
LOCAL GOVERNMENT LEGISLATOR NOTES CALLED PHARMACY SPOKE WITH GRANT TO CHECK ON ERYTHROMYCIN
--- NOTE | 2017-04-04 14:20 | NUR ---
SHAG TRUCK DRIVER NOTES SPOKE WITH PHARMACY TO F/U ON EPOGEN
--- NOTE | 2017-04-04 15:02 | NUR ---
OIL REFINERY PROCESS TECHNICIAN NOTES RECHECKED RESIDUAL 5ML RESIDUAL NOTED. RESUMED FEEDING AT 20ML/HR WILL MONITOR CLOSELY
--- NOTE | 2017-04-04 16:17 | NUR ---
FIRE PRODUCTION OPERATOR NOTES CALLED BLOOD BANK TO CHECK IF BLOOD IS READY FOR ACID CRANE OPERATOR
--- NOTE | 2017-04-04 16:40 | NUR ---
FITNESS SERVICES MANAGER NOTES NOTIFIED DR MELÉNDEZ PATIENT TEMP 101.1 BEFORE START OF TRANSFUSION. PER MD GIVE BLOOD. FOLLOWED OUT MD ORDERS
--- NOTE | 2017-04-04 19:20 | NUR ---
TECHNICAL PRODUCER NOTES ENDORSED AMIKACIN ADMIN TO FIRE EXTINGUISHER SPRINKLER INSPECTOR S/P PRBC INFUSION
--- NOTE | 2017-04-04 19:30 | NUR ---
FINISHING DEPARTMENT SUPERVISOR NOTES, RECEIVED PATIENT IN BED, WITH VEDNT SETTINGS TOLERATED WELL, NO ACUTE DISTRESS OR SOB NOTED AT THIS TIME. DAUGHTER AT BEDSIDE. BLOOD INFUSING AT THSI TIME, TEMP AT THIS TIME 97.4 AXILLARY, BP 84/48 WILL ADMINISTERED MEDICATION ORDERED. LAST HD TODAY 1050 ML OUTPUT. NOTED DRY AND CLEAN, GT IN PLACE INTACT, RUNNING AT 20ML/HR, NO RESIDUAL NOTED AT THIS TIME. NOTED WITH DRESSING DR AND CLEAN AT STOMA SITE, NO BLEEDING OR DISCHARGE NOTED AT THIS TIME. BED LOCKED AND IN LOWEST POSITION, CALL LIGHT W/I REACH. WILL CONTINUE TO MONITOR CLOSELY.
[2017-04-04] MEDS: AMIKACIN 500 MG in IV D5W 100 ML IV PRN (20:27)
[2017-04-05] VITALS (8 sets, daily range): BP systolic 92–127; BP diastolic 34–97
[2017-04-05] MEDS: IPRATROPIUM NEB FS 0.5 MG/2.5 ML AMPUL.NEB NEB SCH ×4 (01:53→20:15)
[2017-04-05] MEDS: ALBUTEROL FS 2.5 MG/0.5 ML VIAL.NEB NEB SCH ×4 (01:53→20:15)
[2017-04-05] MEDS: METRONIDAZOLE 500 MG TABLET GT SCH ×3 (04:27→21:04)
[2017-04-05] MEDS: ERYTHROMYCIN ETHYLSUCCINATE 200 MG/5 ML SUSPENSION GT SCH ×3 (04:30→21:04)
[2017-04-05] MEDS: MIDODRINE HCL (5MG) 5 MG TABLET PO SCH ×3 (04:30→21:05)
[2017-04-05 06:57] LABS: BASOPHILS % (AUTO) 0.3 % (0.0-2.0); EOSINOPHILS # (AUTO) 0.1 /CMM (0.0-0.7); EOSINOPHILS % (AUTO) 1.1 % (0.0-6.0); HEMATOCRIT 23 % (33-45); HEMOGLOBIN 7.8 g/dL (11.5-14.8); LYMPHOCYTES # (AUTO) 2.1 /CMM (0.8-4.8); LYMPHOCYTES % (AUTO) 18.8 % (20.0-44.0); MEAN CORPUSCULAR HEMOGLOBIN 36 PG (26.0-33.0); MEAN CORPUSCULAR HGB CONC 34 g/dl (31.0-36.0); MEAN CORPUSCULAR VOLUME 107 fL (82-100); MONOCYTES # (AUTO) 1.2 /CMM (0.1-1.30); MONOCYTES % (AUTO) 10.6 % (2.0-12.0); NEUTROPHILS # (AUTO) 7.8 /CMM (1.8-8.9); NEUTROPHILS % (AUTO) 69.2 % (43.0-81.0); PLATELET COUNT (AUTO) 153 /CMM (150-450); RDW COEFFICIENT OF VARIATION 26.2 (11.5-15.0); RED BLOOD CELL COUNT(AUTO) 2.17 MIL/uL (4.0-5.2); WHITE BLOOD COUNT (AUTO) 11.3 K/uL (4.3-11.0)
--- NOTE | 2017-04-05 07:11 | NUR ---
RN NOTES PATIENT AWAKE AT THIS TIME. RESPONSIVE TO STIMULI. EXHIBIT USUAL MENTAL STATUS AOX1-2. WITH TRACH AND VENT SETTING TOLERATED WELL. NO ACUTE RESP DISTRESS. SATING 98% REMAINED A-FIB WITH BBB IN TELE MONITOR. GTF @ 30 CC/HR TOLERATED WELL WITH ZERO RESIDUAL. IV SITE INTACT AND PATENT RCW CLEANED AND DRY. NO ACUTE BLEEDING NOTED. AFEBRILE AT THIS TIME LAST TEMP 98.8 DEG FAHRENHEIT LAST BP WAS 100/56. NO SIGNIFICANT CHANGES SHOWS THROUGHOUT THE SHIFT. DRESSING CHANGE. KEPT PT CLEAN AND DRY. WILL ENDORSED CONTINUITY OF CARE TO AM NURSE.
[2017-04-05 07:23] LABS: CALCIUM, SERUM 9.1 mg/dL (8.5-10.1); CARBON DIOXIDE 32 mmol/L (21-32); CHLORIDE 101 mmol/L (98-107); CREATININE 2.8 mg/dL (0.6-1.3); GLUCOSE 119 mg/dL (74-106); MAGNESIUM 1.9 mg/dL (1.8-2.4); PHOSPHORUS 3.6 mg/dL (2.5-4.9); POTASSIUM 3.8 mmol/L (3.5-5.1); SODIUM SERUM 141 mmol/L (136-145); UREA NITROGEN, BLOOD 36 mg/dL (7-18)
[2017-04-05] MEDS: Z GUARD REMEDY 2 OZ OINT TP SCH (09:02)
[2017-04-05] MEDS: HYDROGEL DRESSING 90 GM TUBE TP SCH (09:02)
[2017-04-05] MEDS: CALCITRIOL ORAL SOLUTION 1 MCG/ML GT SCH (09:03)
[2017-04-05] MEDS: ZINC SULFATE 220 MG CAPSULE PO SCH (09:03)
[2017-04-05] MEDS: LEVETIRACETAM SOL (5 ML) 100 MG/ML UDC GT SCH ×2 (09:03→21:03)
[2017-04-05] MEDS: VIT B CMPLX 3/FA/VIT C/BIOTIN 1 TAB TABLET GT SCH (09:03)
[2017-04-05] MEDS: ACIDOPHILUS/BULGARICUS 1 EACH TAB.CHEW GT SCH ×2 (09:03→21:04)
[2017-04-05 09:04] LABS: NEUTROPHILS % (MANUAL) 74 (42-76)
[2017-04-05 09:05] LABS: BAND % (MANUAL) 2 % (0.0-5.0); LYMPHOCYTES % (MANUAL) 12 % (16-48); MONOCYTES % (MANUAL) 12 % (0-11.0)
--- NOTE | 2017-04-05 10:01 | NUR ---
CHESS INSTRUCTOR NOTES PER CJ RUBY ENGINEER COVER OLD GT SITE WITH HYDROGEL AND MEPILEX DAILY/PRN
[2017-04-05] MEDS: Z GUARD REMEDY 2 OZ OINT TP PRN (12:42)
--- NOTE | 2017-04-05 12:43 | NUR ---
EARTH OBSERVATIONS CHIEF SCIENTIST NOTES CALLED PHARMACY FOR ERYTHROMYCIN TO BE DELIVERED
--- NOTE | 2017-04-05 13:10 | NUR ---
SEAFOOD TEAM MEMBER NOTES PATIENT CONTINUES TO HAVE EXCORIATION OPENED RED AREAS SEEN ON 04/03. CONTINUING TO APPLY Z GUARD, FREQUENT SKIN CHECKS AND OFFLOADING AND TURNING
[2017-04-05] MEDS: DIGOXIN INJ 0.5 MG/2 ML AMPUL IV SCH (14:12)
--- NOTE | 2017-04-05 14:38 | NUR ---
SENIOR TAX ACCOUNTANT NOTES CALLED PHARMACY TO CHECK AGAIN ON ERYTHROMYCIN
--- NOTE | 2017-04-05 14:40 | NUR ---
DIE STAMPER NOTES SPOKE WITH ESTEPHANIA AND NOTIFIED PATIENT 200ML RESIDUAL YESTERDAY MORNING. ORDER GIVEN HOLD G TUBE FEEDING FOR 2 HOURS FOR RESIDUAL OVER 100. GIVE ZOFRAN 4MG IVP Q12H X2 DOSES. INSERT FLEXI SEAL IF PATIENT CONTINUES TO HAVE DIARRHEA.
[2017-04-05] MEDS: LEVOFLOXACIN 500 MG /D5W 100ML 500 MG in PREMIX 1 EA IV SCH (14:41)
[2017-04-05] MEDS ORDERED: ONDANSETRON HCL/PF 4 MG/2 ML VIAL IV SCH ×2 (15:00→16:56)
--- NOTE | 2017-04-05 19:30 | NUR ---
TOOL ROOM ATTENDANT CLOSING PATIENT STABLE NO COMPLICATIONS. FLEXI SEAL INSERTED ORDERED. PATIENT TURNED Q2H AND HEELS AND ELBOWS OFFLOADED FOR COMFORT. PATIENT TOLERATED TUBE FEEDING THROUGHOUT DAY NO RESIDUAL NOTED. 0ML RESIDUAL CHECKED AT 1900. PATIENT SON AT BEDSIDE. PATIENT NEEDS ASSESSED AND MET AND ALL DUE MEDS GIVEN. CARE ENDORSED TO RN FOR CONNOR Addendum: 04/05/17 at 1932 by JENNIFER NDIAYE RN NO COMPLICATIONS WITH FLEXISEAL INSERTION
--- NOTE | 2017-04-05 19:59 | NUR ---
RN NOTES, RECEIVED PATIENT IN BED, IN VENT SETTINGS TOLERATED WELL, NO S/S OF ANY ACUTE DISTRESS OR SOB, SON AT BEDSIDE, RFA PIV LINE PATENT AND INTACT, GT IN PLACED WITH NO RESIDUAL AT THIS TIME, GTF INFUSING WELL AN PATIENT TOLERATED WELL AT THIS TIME, HOB ELEVATED AT ALL TIMES FOR ASPIRATION PRECAUTIONS, WITH FLEXISEAL IN PLACE AND MINIMAL STOOL NOTED AT THIS TIME. REPOSITED FOR COMFORT, BED LOCKED AND IN LOWEST POSITION AT THIS TIME, WILL CONTINUE TO MONITOR CLOSELY.
[2017-04-06] VITALS (7 sets, daily range): BP systolic 83–98; BP diastolic 32–49
[2017-04-06] MEDS: ALBUTEROL FS 2.5 MG/0.5 ML VIAL.NEB NEB SCH ×3 (01:24→14:12)
[2017-04-06] MEDS: IPRATROPIUM NEB FS 0.5 MG/2.5 ML AMPUL.NEB NEB SCH ×3 (01:24→14:12)
[2017-04-06] MEDS ORDERED: ONDANSETRON HCL/PF 4 MG/2 ML VIAL IV ONE (03:00)
[2017-04-06] MEDS: METRONIDAZOLE 500 MG TABLET GT SCH ×3 (05:20→21:25)
[2017-04-06] MEDS: ERYTHROMYCIN ETHYLSUCCINATE 200 MG/5 ML SUSPENSION GT SCH ×3 (05:20→21:24)
[2017-04-06] MEDS: MIDODRINE HCL (5MG) 5 MG TABLET PO SCH ×3 (05:21→21:25)
[2017-04-06] MEDS: RENAL NOVASOURCE 1,000 ML BOTTLE GT PRN (05:25)
--- NOTE | 2017-04-06 06:40 | NUR ---
RN NOTES, PATIENT AWAKE IN BED RESPONSIVE TO VERBAL STIMULI, ON VENT SETTINGS, TOLERATED WELL, NO ACUTE DISTRESS OR SOB NOTED, REMAINED STABLE DURING SHIFT, KEPT DRY AND CLEAN, NO RESIDUAL NOTED AND TOLERATED GTF WELL, FAMILY AT BEDSIDE AT THIS TIME, WITH FLEXISEAL IN PLACED FLUSHED ORDERED, BED LOCKED AND LOWEST POSITION, WELL REPOSITIONED, CALL LIGHT W/I REACH, WILL ENDORSE CONTINUITY OF CARE TO NEXT SHIFT.
--- NOTE | 2017-04-06 07:30 | NUR ---
REPAIRER SWITCHGEAR OPENING RECEIVED PATIENT A/OX1-2 NODS YES AND NO TO QUESTIONS ASKED OF HER. PATIENT DENIES PAIN, SOB, DIFFICULTY BREATHING. PATIENT REPOSITIONED FOR INCREASED COMFORT. TUBE FEEDING RUNNING ORDERED NO RESIDUAL NOTED. DRESSING OVER OLD GT SITE INTACT; WILL CONTINUE TO MONITOR. TELE AFIB CONTROLLED 70'S. SKIN CARE ORDERED. CONTINUING TO MONITOR. KEEPING CLEAN AND DRY. OFFLOADING HEELS AND ELBOWS. PATIENT APPEARS STABLE AT THIS TIME. BED LOWERED AND LOCKED, RAILS UPX3 FOR SAFETY. BED ALARM ON. WILL ROUND Q2H OR LESS PER NEEDS. HOB ELEVATED FOR ASPIRATION PRECAUTIONS. NO EPISODES OF VOMITING PER RN LAST NIGHT
[2017-04-06] MEDS: VIT B CMPLX 3/FA/VIT C/BIOTIN 1 TAB TABLET GT SCH (09:10)
[2017-04-06] MEDS: ACIDOPHILUS/BULGARICUS 1 EACH TAB.CHEW GT SCH ×2 (09:10→21:25)
[2017-04-06] MEDS: HYDROGEL DRESSING 90 GM TUBE TP SCH (09:10)
[2017-04-06] MEDS: Z GUARD REMEDY 2 OZ OINT TP SCH (09:10)
[2017-04-06] MEDS: LEVETIRACETAM SOL (5 ML) 100 MG/ML UDC GT SCH ×2 (09:10→21:24)
[2017-04-06] MEDS: ZINC SULFATE 220 MG CAPSULE PO SCH (09:10)
[2017-04-06] MEDS: CALCITRIOL ORAL SOLUTION 1 MCG/ML GT SCH (09:10)
[2017-04-06] MEDS: ALBUMIN 25% 25 GM in PREMIX 1 EA IV PRN ×2 (11:15→11:43)
--- NOTE | 2017-04-06 11:50 | NUR ---
DUE DILIGENCE COORDINATOR NOTES CALLED PHARMACY TO HAVE ERYTHROMYCIN BROUGHT FOR PATIENT
--- NOTE | 2017-04-06 15:00 | NUR ---
SOCK LINING EXAMINER NOTES HELD AMIKACIN DUE TO INCREASED TROUGH
[2017-04-06] MEDS: ACETAMINOPHEN 650 MG/20.3 ML UDC GT PRN (17:29)
--- NOTE | 2017-04-06 18:40 | NUR ---
ACCOUNT MANAGER TRAINEE CLOSING PATIENT STABLE NO COMPLICATIONS. FLEXI SEAL IN PLACE WITH PRN IRRIGATION. PATIENT TURNED Q2H AND HEELS AND ELBOWS OFFLOADED FOR COMFORT. PATIENT TOLERATED TUBE FEEDING THROUGHOUT DAY NO RESIDUAL NOTED. 0ML RESIDUAL CHECKED AT 1900. PATIENT FAMILY AT BEDSIDE. PATIENT NEEDS ASSESSED AND MET AND ALL DUE MEDS GIVEN. CARE ENDORSED TO RN FOR CONNOR
--- NOTE | 2017-04-06 19:30 | NUR ---
RN NOTES RECEIVED PT AWAKE ON BED. RESPONSIVE TO VERBAL AND TACTILE STIMULI. NO ACUTER JAMESON DISTRESS SHOWS TOLERATED TRACH AND VENT SETTING WELL. AFEBRILE. SAD AND PALE LOOKING. TELE MONITOR REVEALS A-FIB WITH BBB HR 74. ABDOMEN SOFT BUT DISTENDED STOMA SITE COVERED WITH GAUZE AND ABD. PADS. NO LEAKAGE SHOWS. GTF RUNNING AT 30 CC/HR WITH 5 CC RESIDUAL TOLERATED WELL AT THIS TIME.AND WILL CONTINUE TO MONITOR ORDERED. IV SITE ON RFA G20 INTACT AND PATENT. FLEXISEAL INTACT DRAINED WITH BROWN LIQUIDY AND SOME SOFT STOOL .SON AT BEDSIDE REMINDED TO USED CALL LIGHT WHEN NEEDS HELP. HEALTH TEACHING RENDERED. KEPT PT CLEAN AND DRY. REDUCED PRESSURE TO BONY PROMINENCE AREA REPOSITIONED ORDERED. WILL CONTINUE TO MONITOR.
[2017-04-07] VITALS: BP 88/41
[2017-04-07 04:00] VITALS: BP 128/80
[2017-04-07] MEDS: RENAL NOVASOURCE 1,000 ML BOTTLE GT PRN (04:43)
[2017-04-07] MEDS: ERYTHROMYCIN ETHYLSUCCINATE 200 MG/5 ML SUSPENSION GT SCH ×3 (04:43→20:58)
[2017-04-07] MEDS: MIDODRINE HCL (5MG) 5 MG TABLET PO SCH ×3 (04:43→20:59)
[2017-04-07] MEDS: METRONIDAZOLE 500 MG TABLET GT SCH ×3 (04:44→20:58)
--- NOTE | 2017-04-07 06:49 | NUR ---
RN NOTES PATIENT ASLEEP WELL. CLEANED AND DRY. NO EPISODE OF SOB OR ANY ACUTE RESP DISTRESS. TOLERATED TRACH AND VENT ORDERED. GENTLY TURNED AND REPOSITIONED PROTOCOL AND PRN PT COMFORTABLE. ALL NEEDS ATTENDED. AFEBRILE. VS CONTROLLED WITH MEDS. ATB TOLERATED WELL . GTF TOLERATED WELL WITH ZERO RESIDUAL AT THIS TIME. IV SITE INTACT AND PATENT. FLEXISEAL PATENT. ENDORSED CONTINUITY OF CARE TO AM NURSE.
--- NOTE | 2017-04-07 07:10 | NUR ---
RN INITIAL NOTES: REC'D PT ASLEEP ON BED, NOT IN ANY DISTRESS, A/O X2, EASILY AWAKEN. ON MECH VENT VIA TRACH, NO SOB NOTED. ON TELEMONITOR, AFIB. HAS PEG PATENT & INTACT, ON CONTINUOUS TUBE FEEDING NOVASOURCE X 30 CC/HR INFUSING WELL. HAS FLEXISEAL, PATENT & INTACT. HAS RFA G20, SL, FLUSHED PATENT & INTACT W/ NO S/SX OF INFECTION/INFILTRATION NOTED. PROVIDED COMFORT AND SAFETY MEASURES. BED KEPT LOW & IN LOCKED POS. CALL LIGHT PLACED W/IN REACH. WILL CONTINUE TO MONITOR AND ATTEND PT'S NEEDS.
[2017-04-07 08:00] VITALS: BP_SYST 98; BP_DIAS 46; BP_DIAS 48
[2017-04-07] MEDS: IPRATROPIUM NEB FS 0.5 MG/2.5 ML AMPUL.NEB NEB SCH ×3 (08:14→19:48)
[2017-04-07] MEDS: ALBUTEROL FS 2.5 MG/0.5 ML VIAL.NEB NEB SCH ×3 (08:15→19:48)
[2017-04-07] MEDS: LEVETIRACETAM SOL (5 ML) 100 MG/ML UDC GT SCH ×2 (08:28→20:58)
[2017-04-07] MEDS: ZINC SULFATE 220 MG CAPSULE PO SCH (08:28)
[2017-04-07] MEDS: VIT B CMPLX 3/FA/VIT C/BIOTIN 1 TAB TABLET GT SCH (08:28)
[2017-04-07] MEDS: Z GUARD REMEDY 2 OZ OINT TP SCH (08:28)
[2017-04-07] MEDS: CALCITRIOL ORAL SOLUTION 1 MCG/ML GT SCH (08:28)
[2017-04-07] MEDS: ACIDOPHILUS/BULGARICUS 1 EACH TAB.CHEW GT SCH ×2 (08:28→20:58)
[2017-04-07] MEDS: HYDROGEL DRESSING 90 GM TUBE TP SCH (08:29)
[2017-04-07 12:00] VITALS: BP 89/41
[2017-04-07] MEDS: DIGOXIN INJ 0.5 MG/2 ML AMPUL IV SCH (13:36)
[2017-04-07 16:00] VITALS: BP 89/34
--- NOTE | 2017-04-07 17:58 | NUR ---
RN NOTES: FOUZIA OF ABDOMEN RESULT RELAYED TO SHAILA VALENZUELA OF DR. YOON.
--- NOTE | 2017-04-07 18:30 | NUR ---
RN CLOSING NOTES: NO ACUTE CHANGES NOTED W/IN SHIFT. PT TOLERATED MECH VENT SETTINGS VIA TRACH, NO SOB NOTED W/IN SHIFT. ON TELEMONITOR, STILL AFIB CONTROLLED. PEG KEPT PATENT & INTACT, TOLERATED CONTINUOUS TUBE FEEDING NOVASOURCE X 30 CC/HR, NO RESIDUAL NOTED W/IN SHIFT. REINSERTED NEW FLEXISEAL PATENT & INTACT. RFA G20, SL, KEPT PATENT & INTACT W/ NO S/SX OF INFECTION/INFILTRATION NOTED. KEPT WELL RESTED. NEEDS ATTENDED. BED KEPT LOW & IN LOCKED POS. CALL LIGHT PLACED W/IN REACH. SECRETIONS SUCTIONED. WOUND CARE DONE. TURNED AND REPOSITIONED. WILL ENDORSE TO PM RN FOR CONNOR.
--- NOTE | 2017-04-07 19:56 | NUR ---
RN INITIAL TELE NOTES: REC'D PT FROM AM SHIFT ON BED, NOT IN ANY DISTRESS, A/O X2, AWAKE NON VERBAL. ON MECH VENT VIA TRACH, NO SOB NOTED. ON TELEMONITOR, AFIB. HAS PEG PATENT & INTACT, ON CONTINUOUS TUBE FEEDING NOVASOURCE X 30 CC/HR INFUSING WELL. HAS FLEXISEAL, PATENT & INTACT. HAS RFA G20, SL, FLUSHED PATENT & INTACT W/ NO S/SX OF INFECTION/INFILTRATION NOTED. PROVIDED COMFORT AND SAFETY MEASURES. BED KEPT LOW & IN LOCKED POS. CALL LIGHT PLACED W/IN REACH. WILL CONTINUE TO MONITOR AND ATTEND PT'S NEEDS.
[2017-04-07 20:00] VITALS: BP 93/50
[2017-04-08] VITALS: BP 95/40
[2017-04-08] MEDS: IPRATROPIUM NEB FS 0.5 MG/2.5 ML AMPUL.NEB NEB SCH ×4 (01:54→19:56)
[2017-04-08] MEDS: ALBUTEROL FS 2.5 MG/0.5 ML VIAL.NEB NEB SCH ×4 (01:55→19:56)
[2017-04-08 04:00] VITALS: BP 120/46
[2017-04-08] MEDS: ERYTHROMYCIN ETHYLSUCCINATE 200 MG/5 ML SUSPENSION GT SCH ×3 (05:39→20:43)
[2017-04-08] MEDS: MIDODRINE HCL (5MG) 5 MG TABLET PO SCH ×3 (05:40→20:40)
--- NOTE | 2017-04-08 06:08 | NUR ---
RN CLOSING TELE NOTES: ENDORSED PT TO AM SHIFT ON BED, NOT IN ANY DISTRESS, A/O X2, AWAKE NON VERBAL. ON MECH VENT VIA TRACH, NO SOB NOTED. ON TELEMONITOR, AFIB. HAS PEG PATENT & INTACT, ON CONTINUOUS TUBE FEEDING NOVASOURCE X 30 CC/HR INFUSING WELL. HAS FLEXISEAL, PATENT & INTACT. HAS RFA G20, SL, FLUSHED PATENT & INTACT W/ NO S/SX OF INFECTION/INFILTRATION NOTED. PROVIDED COMFORT AND SAFETY MEASURES. BED KEPT LOW & IN LOCKED POS. CALL LIGHT PLACED W/IN REACH. WILL CONTINUE TO MONITOR AND ATTEND PT'S NEEDS.
--- NOTE | 2017-04-08 07:10 | NUR ---
RN INITIAL NOTES: REC'D PT AWAKE ON BED, NOT IN ANY DISTRESS, A/O X2. ON MECH VENT VIA TRACH, NO SOB NOTED. ON TELEMONITOR, AFIB (CONTROLLED). HAS PEG PATENT & INTACT, ON CONTINUOUS TUBE FEEDING NOVASOURCE X 30 CC/HR INFUSING WELL, NO RESIDUAL NOTED UPON CHECKING. HAS FLEXISEAL, PATENT & INTACT. HAS RFA G20, SL, FLUSHED PATENT & INTACT W/ NO S/SX OF INFECTION/INFILTRATION NOTED. HAS RCW PERMACATH, ONGOING HD C/O BILL. PROVIDED COMFORT AND SAFETY MEASURES. BED KEPT LOW & IN LOCKED POS. CALL LIGHT PLACED W/IN REACH. WILL CONTINUE TO MONITOR AND ATTEND PT NEEDS.
[2017-04-08 08:00] VITALS: BP 88/35
[2017-04-08] MEDS: VIT B CMPLX 3/FA/VIT C/BIOTIN 1 TAB TABLET GT SCH (08:38)
[2017-04-08] MEDS: LEVETIRACETAM SOL (5 ML) 100 MG/ML UDC GT SCH ×2 (08:38→20:39)
[2017-04-08] MEDS: ACIDOPHILUS/BULGARICUS 1 EACH TAB.CHEW GT SCH ×2 (08:38→20:39)
[2017-04-08] MEDS: ZINC SULFATE 220 MG CAPSULE PO SCH (08:38)
[2017-04-08] MEDS: HYDROGEL DRESSING 90 GM TUBE TP SCH (08:39)
[2017-04-08] MEDS: Z GUARD REMEDY 2 OZ OINT TP SCH (08:39)
[2017-04-08] MEDS: CALCITRIOL ORAL SOLUTION 1 MCG/ML GT SCH (08:39)
--- NOTE | 2017-04-08 09:00 | NUR ---
RN NOTES: HD ENDED, 500 CC OUTPUT. PT TOLERATED WELL.
[2017-04-08 12:00] VITALS: BP 84/38
[2017-04-08 16:00] VITALS: BP 91/56
--- NOTE | 2017-04-08 19:00 | NUR ---
RN CLOSING NOTES: NO ACUTE CHANGES NOTED W/IN SHIFT. PT TOLERATED MECH VENT SETTINGS VIA TRACH, NO SOB NOTED W/IN SHIFT. ON TELEMONITOR, STILL AFIB CONTROLLED. PEG KEPT PATENT & INTACT, TOLERATED CONTINUOUS TUBE FEEDING NOVASOURCE X 30 CC/HR, NO RESIDUAL NOTED W/IN SHIFT. REINSERTED NEW FLEXISEAL PATENT & INTACT. RFA G20, SL, KEPT PATENT & INTACT W/ NO S/SX OF INFECTION/INFILTRATION NOTED. KEPT WELL RESTED. NEEDS ATTENDED. BED KEPT LOW & IN LOCKED POS. CALL LIGHT PLACED W/IN REACH. SECRETIONS SUCTIONED. WOUND CARE DONE. TURNED AND REPOSITIONED. ENDORSED TO PM RN FOR CONNOR.
--- NOTE | 2017-04-08 19:48 | NUR ---
RN INITIAL TELE NOTES: REC'D PT FROM AM SHIFT ON BED, NOT IN ANY DISTRESS, A/O X2, AWAKE NON VERBAL. ON MECH VENT VIA TRACH, NO SOB NOTED. ON TELEMONITOR, AFIB. HAS PEG PATENT & INTACT, ON CONTINUOUS TUBE FEEDING NOVASOURCE X 30 CC/HR INFUSING WELL. HAS FLEXISEAL, PATENT & INTACT. HAS RFA G20, SL, FLUSHED PATENT & INTACT W/ NO S/SX OF INFECTION/INFILTRATION NOTED, S/P HD, 500 ML O/P, V/S STABLE. PROVIDED COMFORT AND SAFETY MEASURES. BED KEPT LOW & IN LOCKED POS. CALL LIGHT PLACED W/IN REACH. WILL CONTINUE TO MONITOR AND ATTEND PT'S NEEDS.
[2017-04-08 20:00] VITALS: BP 82/47
[2017-04-09] VITALS: BP_SYST 82; BP_SYST 90; BP_DIAS 38; BP_DIAS 49
[2017-04-09] MEDS: ACETAMINOPHEN 650 MG/20.3 ML UDC GT PRN (00:28)
[2017-04-09] MEDS: RENAL NOVASOURCE 1,000 ML BOTTLE GT PRN (00:29)
[2017-04-09] MEDS: IPRATROPIUM NEB FS 0.5 MG/2.5 ML AMPUL.NEB NEB SCH ×4 (01:42→20:08)
[2017-04-09] MEDS: ALBUTEROL FS 2.5 MG/0.5 ML VIAL.NEB NEB SCH ×4 (01:42→20:08)
[2017-04-09 04:00] VITALS: BP_SYST 101; BP_SYST 89; BP_DIAS 38; BP_DIAS 45
[2017-04-09] MEDS: ERYTHROMYCIN ETHYLSUCCINATE 200 MG/5 ML SUSPENSION GT SCH ×3 (04:48→21:40)
[2017-04-09] MEDS: MIDODRINE HCL (5MG) 5 MG TABLET PO SCH ×3 (04:49→21:41)
[2017-04-09 06:26] LABS: BASOPHILS % (AUTO) 0.2 % (0.0-2.0); HEMATOCRIT 25 % (33-45); HEMOGLOBIN 8.4 g/dL (11.5-14.8); LYMPHOCYTES % (AUTO) 16.6 % (20.0-44.0); MEAN CORPUSCULAR HEMOGLOBIN 38 PG (26.0-33.0); MEAN CORPUSCULAR HGB CONC 34 g/dl (31.0-36.0); MEAN CORPUSCULAR VOLUME 112 fL (82-100); MONOCYTES # (AUTO) 1.3 /CMM (0.1-1.30); MONOCYTES % (AUTO) 11.3 % (2.0-12.0); NEUTROPHILS # (AUTO) 8.5 /CMM (1.8-8.9); NEUTROPHILS % (AUTO) 71.9 % (43.0-81.0); PLATELET COUNT (AUTO) 150 /CMM (150-450); RDW COEFFICIENT OF VARIATION 25.8 (11.5-15.0); RED BLOOD CELL COUNT(AUTO) 2.23 MIL/uL (4.0-5.2); WHITE BLOOD COUNT (AUTO) 11.8 K/uL (4.3-11.0)
--- NOTE | 2017-04-09 06:26 | NUR ---
RN CLOSING TELE NOTES: ENDORSED PT TO AM SHIFT ON BED, NOT IN ANY DISTRESS, A/O X2, AWAKE NON VERBAL. ON MECH VENT VIA TRACH, NO SOB NOTED. ON TELEMONITOR, AFIB. HAS PEG PATENT & INTACT, ON CONTINUOUS TUBE FEEDING NOVASOURCE X 30 CC/HR INFUSING WELL. HAS FLEXISEAL, PATENT & INTACT. HAS RFA G20, SL, FLUSHED PATENT & INTACT W/ NO S/SX OF INFECTION/INFILTRATION NOTED, S/P HD, 500 ML O/P, V/S STABLE. PT WITH FLEXISEAL ORDER, BUT REFUSES TO INSERT , BY EXPELLING IT OUT BY EXERTING PRESSURE, WILL ENDORSE TO AM SHIFT TO F/U, RISK AND BENEFIT EXPLAINED. PROVIDED COMFORT AND SAFETY MEASURES. BED KEPT LOW & IN LOCKED POS. CALL LIGHT PLACED W/IN REACH. WILL CONTINUE TO MONITOR AND ATTEND PT'S NEEDS.
[2017-04-09 06:47] LABS: ALANINE AMINOTRANSFERASE 11 U/L (12-78); ALBUMIN 2.6 g/dL (3.4-5.0); ALKALINE PHOSPHATASE 232 U/L (46-116); ASPARTATE AMINOTRANSFERASE 30 U/L (15-37); BILIRUBIN,TOTAL 3.4 mg/dL (0.2-1.0); CALCIUM, SERUM 9.1 mg/dL (8.5-10.1); CARBON DIOXIDE 34 mmol/L (21-32); CHLORIDE 95 mmol/L (98-107); CREATININE 2.9 mg/dL (0.6-1.3); GLUCOSE 120 mg/dL (74-106); POTASSIUM 3.1 mmol/L (3.5-5.1); SODIUM SERUM 130 mmol/L (136-145); UREA NITROGEN, BLOOD 33 mg/dL (7-18)
[2017-04-09 07:25] LABS: BAND % (MANUAL) 3 % (0.0-5.0); EOSINOPHILS % (MANUAL) 1 % (0-4); LYMPHOCYTES % (MANUAL) 20 % (16-48); MONOCYTES % (MANUAL) 6 % (0-11.0); MYELOCYTES % 1 % (0-0); NEUTROPHILS % (MANUAL) 69 (42-76)
--- NOTE | 2017-04-09 07:30 | NUR ---
RN NOTES RECEIVED PATIENT ON [facility] VENT WITH BREATHING NORMAL, EVEN AND UNLABORED. NO SOB NOTED. VENT SETTING REVIEWED AND VERIFIED. TOLERATED WELL. NO ACUTE DISTRESS NOTED. TELE MONITOR REVEALS CONTROLLED A FIB, HR=90. IV RFA IS PATENT AND INTACT. ON GT FEED NOVASOURCE @ 30CC/HR. TOLERATED WELL. NO RESIDUAL NOTED. ASPIRATION PRECAUTION TAKEN. HOB ELEVATED. KEPT CLEAN, DRY AND COMFORTABLE. ALL NEEDS ATTENDED. SAFETY MEASURE OBSERVED. CALL LIGHT WITH IN REACH. WILL CONT TO MONITOR.
[2017-04-09 08:00] VITALS: BP 98/41
[2017-04-09] MEDS: ACIDOPHILUS/BULGARICUS 1 EACH TAB.CHEW GT SCH ×2 (09:11→21:40)
[2017-04-09] MEDS: ZINC SULFATE 220 MG CAPSULE PO SCH (09:11)
[2017-04-09] MEDS: VIT B CMPLX 3/FA/VIT C/BIOTIN 1 TAB TABLET GT SCH (09:11)
[2017-04-09] MEDS: CALCITRIOL ORAL SOLUTION 1 MCG/ML GT SCH (09:11)
[2017-04-09] MEDS: LEVETIRACETAM SOL (5 ML) 100 MG/ML UDC GT SCH ×2 (09:11→21:40)
[2017-04-09] MEDS: HYDROGEL DRESSING 90 GM TUBE TP SCH (09:12)
[2017-04-09] MEDS: Z GUARD REMEDY 2 OZ OINT TP SCH (09:13)
[2017-04-09 12:00] VITALS: BP 84/40
[2017-04-09] MEDS: DIGOXIN INJ 0.5 MG/2 ML AMPUL IV SCH (13:00)
--- NOTE | 2017-04-09 13:00 | NUR ---
RN NOTES DIGOXIN IV NOT GIVEN. PATIENT IS SCHEDULED FOR DIALYSIS TOMORROW. DR GEORGES ARMAS AWARE.
--- NOTE | 2017-04-09 14:56 | NUR ---
RN NOTES RELAYED POTASSIUM =3.[address] DUNHAM WITH NNO. WILL CONT TO MONITOR.
[2017-04-09 16:00] VITALS: BP 91/42
--- NOTE | 2017-04-09 18:44 | NUR ---
RN NOTES PATIENT ENDORSED TO NEXT SHIFT IN STABLE CONDITION WITH BREATHING NORMAL, EVEN AND UNLABORED, NO SOB NOTED. NO ACUTE DISTRESS NOTED. KEPT CLEAN, DRY AND COMFORTABLE. ALL NEEDS ATTENDED. SAFETY MEASURE OBSERVED. CALL LIGHT WITH IN REACH. WILL CONT TO MONITOR.
[2017-04-09 20:00] VITALS: BP 87/43
[2017-04-10] VITALS: BP 84/41
[2017-04-10] MEDS: IPRATROPIUM NEB FS 0.5 MG/2.5 ML AMPUL.NEB NEB SCH ×4 (01:01→19:51)
[2017-04-10] MEDS: ALBUTEROL FS 2.5 MG/0.5 ML VIAL.NEB NEB SCH ×4 (01:01→19:51)
[2017-04-10 04:00] VITALS: BP 91/41
[2017-04-10] MEDS: ERYTHROMYCIN ETHYLSUCCINATE 200 MG/5 ML SUSPENSION GT SCH ×3 (05:23→21:33)
[2017-04-10] MEDS: MIDODRINE HCL (5MG) 5 MG TABLET PO SCH ×3 (05:23→21:35)
[2017-04-10] MEDS: RENAL NOVASOURCE 1,000 ML BOTTLE GT PRN (05:24)
[2017-04-10 06:24] LABS: BASOPHILS % (AUTO) 0.1 % (0.0-2.0); EOSINOPHILS # (AUTO) 0.2 /CMM (0.0-0.7); EOSINOPHILS % (AUTO) 1.5 % (0.0-6.0); HEMATOCRIT 23 % (33-45); HEMOGLOBIN 7.9 g/dL (11.5-14.8); LYMPHOCYTES # (AUTO) 1.6 /CMM (0.8-4.8); LYMPHOCYTES % (AUTO) 12.9 % (20.0-44.0); MEAN CORPUSCULAR HEMOGLOBIN 38 PG (26.0-33.0); MEAN CORPUSCULAR HGB CONC 34 g/dl (31.0-36.0); MEAN CORPUSCULAR VOLUME 111 fL (82-100); MONOCYTES # (AUTO) 1.2 /CMM (0.1-1.30); MONOCYTES % (AUTO) 9.8 % (2.0-12.0); NEUTROPHILS # (AUTO) 9.3 /CMM (1.8-8.9); NEUTROPHILS % (AUTO) 75.7 % (43.0-81.0); PLATELET COUNT (AUTO) 168 /CMM (150-450); RDW COEFFICIENT OF VARIATION 25.1 (11.5-15.0); WHITE BLOOD COUNT (AUTO) 12.3 K/uL (4.3-11.0)
[2017-04-10 06:48] LABS: CALCIUM, SERUM 8.8 mg/dL (8.5-10.1); CARBON DIOXIDE 31 mmol/L (21-32); CHLORIDE 94 mmol/L (98-107); CREATININE 3.5 mg/dL (0.6-1.3); GLUCOSE 130 mg/dL (74-106); MAGNESIUM 2.2 mg/dL (1.8-2.4); POTASSIUM 3.3 mmol/L (3.5-5.1); SODIUM SERUM 135 mmol/L (136-145); UREA NITROGEN, BLOOD 47 mg/dL (7-18)
--- NOTE | 2017-04-10 06:50 | NUR ---
RN CLOSING TELE NOTES: ENDORSED PT TO AM SHIFT ON BED, NOT IN ANY DISTRESS, A/O X2, AWAKE NON VERBAL. ON MECH VENT VIA TRACH, NO SOB NOTED. ON TELEMONITOR, AFIB. HAS PEG PATENT & INTACT, ON CONTINUOUS TUBE FEEDING NOVASOURCE X 30 CC/HR INFUSING WELL. FLEXISEAL TAKEN OUT FOR NOW DUE TO ANAL REDNESS, HAS RFA G20, SL, FLUSHED PATENT & INTACT W/ NO S/SX OF INFECTION/INFILTRATION NOTED. PROVIDED COMFORT AND SAFETY MEASURES. BED KEPT LOW & IN LOCKED POS. CALL LIGHT PLACED W/IN REACH. WILL CONTINUE TO MONITOR AND ATTEND PT'S NEEDS.
[2017-04-10 07:03] LABS: PHOSPHORUS 4.7 mg/dL (2.5-4.9)
--- NOTE | 2017-04-10 07:30 | NUR ---
TRUCK REPAIR SERVICE ESTIMATOR NOTES PT IN BED, ASLEEP, BREATHING PATTERN NORMAL, NO FACIAL GRIMACING, NO SIGN OF PAIN OR DISCOMFORT, REPOSITIONED FOR COMFORT, GT FEEDING INFUSING WELL, KEPT COMFORTABLE.
[2017-04-10 08:00] VITALS: BP 85/37
[2017-04-10] MEDS: DIGOXIN INJ 0.5 MG/2 ML AMPUL IV SCH (08:25)
--- NOTE | 2017-04-10 08:28 | NUR ---
NECK FITTER NOTES DIGOXIN GIVEN, PT WILL HAVE DIALYSIS TODAY.
[2017-04-10] MEDS: ALBUMIN 25% 25 GM in PREMIX 1 EA IV PRN (08:29)
[2017-04-10 09:21] LABS: BAND % (MANUAL) 4 % (0.0-5.0); EOSINOPHILS % (MANUAL) 1 % (0-4); LYMPHOCYTES % (MANUAL) 13 % (16-48); MONOCYTES % (MANUAL) 6 % (0-11.0); MYELOCYTES % 2 % (0-0); NEUTROPHILS % (MANUAL) 74 (42-76)
[2017-04-10] MEDS: VIT B CMPLX 3/FA/VIT C/BIOTIN 1 TAB TABLET GT SCH (09:25)
[2017-04-10] MEDS: LEVETIRACETAM SOL (5 ML) 100 MG/ML UDC GT SCH ×2 (09:25→21:35)
[2017-04-10] MEDS: ACIDOPHILUS/BULGARICUS 1 EACH TAB.CHEW GT SCH ×2 (09:25→21:33)
[2017-04-10] MEDS: ZINC SULFATE 220 MG CAPSULE PO SCH (09:25)
[2017-04-10] MEDS: CALCITRIOL ORAL SOLUTION 1 MCG/ML GT SCH (09:25)
--- NOTE | 2017-04-10 10:26 | NUR ---
ACTIVITIES ATTENDANT NOTES PT IN BED, DIALYSIS ONGOING, TOLERATING WELL, SEEN BY DR. PAWEL MD AWARE OF LATEST LAB RESULTS AND VITAL SIGNS, WILL CONTINUE TO MONITOR.
[2017-04-10] MEDS: Z GUARD REMEDY 2 OZ OINT TP SCH (11:10)
[2017-04-10] MEDS: HYDROGEL DRESSING 90 GM TUBE TP SCH (11:11)
[2017-04-10 12:00] VITALS: BP 88/38
--- NOTE | 2017-04-10 13:00 | NUR ---
RELATIONSHIP ASSOCIATE NOTES PT IN BED, AWAKE, NO SIGN OF PAIN OR DISTRESS, GT FEEDING INFUSING WELL, TURNED AND REPOSITIONED Q2 HRS, WOUND TREATMENTS DONE, DUE MEDS GIVEN ORDERED, KEPT WARM AND COMFORTABLE IN BED,
[2017-04-10 16:00] VITALS: BP 88/33
--- NOTE | 2017-04-10 18:28 | NUR ---
WET MIXER NOTES PT IN BED, AWAKE, NO FACIAL GRIMACING OR MOANING, GT FEEDING INFUSING WELL AND TOLERATING WELL, NO NAUSEA, VOMITING OR DIARRHEA NOTED, FAMILY AT BEDSIDE, PERINEAL CARE PROVIDED NEEDED, KEPT CLEAN AND DRY, TURNED AND REPOSITIONED Q2 HRS.
--- NOTE | 2017-04-10 19:30 | NUR ---
RESIDENT CARE TECHNICIAN INITIAL NOTES RECEIVED PATIENT AWAKE A/OX2, VENT DEPENDENT, MOUTHS WORDS, DENIES PAIN OR DISCOMFORT. SON AT BEDSIDE. RESPIRATIONS EVEN AND UNLABORED. WITH VENT SETTINGS AC 14, TV 500, FIO2 40%, PEEP0. SKIN WARM AND DRY TO TOUCH. ON TELE MONITOR AFIB WITH BBB 83. WITH GT PATENT AND INTACT, IN PLACE, NO RESIDUAL NOTED. HOB ELEVATED. SIDE RAILS UP AND LOCKED. BED KEPT AT LOWEST POSITION. ISOLATION PRECAUTIONS OBSERVED. CALL LIGHT KEPT WITHIN EASY REACH. WILL CONTINUE TO MONITOR.
[2017-04-10 20:00] VITALS: BP 97/33
[2017-04-11] VITALS (7 sets, daily range): BP systolic 78–101; BP diastolic 22–73
[2017-04-11] MEDS: ALBUTEROL FS 2.5 MG/0.5 ML VIAL.NEB NEB SCH ×4 (02:15→19:54)
[2017-04-11] MEDS: IPRATROPIUM NEB FS 0.5 MG/2.5 ML AMPUL.NEB NEB SCH ×4 (02:15→19:55)
[2017-04-11] MEDS: MIDODRINE HCL (5MG) 5 MG TABLET PO SCH ×3 (06:07→21:21)
[2017-04-11] MEDS: ERYTHROMYCIN ETHYLSUCCINATE 200 MG/5 ML SUSPENSION GT SCH ×3 (06:07→21:21)
[2017-04-11] MEDS: RENAL NOVASOURCE 1,000 ML BOTTLE GT PRN (06:23)
[2017-04-11 06:32] LABS: BASOPHILS % (AUTO) 0.2 % (0.0-2.0); EOSINOPHILS # (AUTO) 0.1 /CMM (0.0-0.7); EOSINOPHILS % (AUTO) 0.5 % (0.0-6.0); HEMATOCRIT 23 % (33-45); HEMOGLOBIN 7.6 g/dL (11.5-14.8); LYMPHOCYTES # (AUTO) 1.7 /CMM (0.8-4.8); LYMPHOCYTES % (AUTO) 13.1 % (20.0-44.0); MEAN CORPUSCULAR HEMOGLOBIN 38 PG (26.0-33.0); MEAN CORPUSCULAR HGB CONC 34 g/dl (31.0-36.0); MEAN CORPUSCULAR VOLUME 112 fL (82-100); MONOCYTES # (AUTO) 1.2 /CMM (0.1-1.30); NEUTROPHILS # (AUTO) 10.2 /CMM (1.8-8.9); NEUTROPHILS % (AUTO) 77.2 % (43.0-81.0); PLATELET COUNT (AUTO) 163 /CMM (150-450); RDW COEFFICIENT OF VARIATION 24.5 (11.5-15.0); RED BLOOD CELL COUNT(AUTO) 2.02 MIL/uL (4.0-5.2); WHITE BLOOD COUNT (AUTO) 13.1 K/uL (4.3-11.0)
[2017-04-11 06:47] LABS: CALCIUM, SERUM 8.7 mg/dL (8.5-10.1); CARBON DIOXIDE 31 mmol/L (21-32); CHLORIDE 95 mmol/L (98-107); GLUCOSE 132 mg/dL (74-106); MAGNESIUM 2.1 mg/dL (1.8-2.4); PHOSPHORUS 3.9 mg/dL (2.5-4.9); SODIUM SERUM 135 mmol/L (136-145); UREA NITROGEN, BLOOD 38 mg/dL (7-18)
--- NOTE | 2017-04-11 07:14 | NUR ---
PLANT OPERATOR CLOSING NOTES NO SIGNIFICANT CHANGES OVERNIGHT. ALL NEEDS ANTICIPATED AND MET. ISOLATION PRECAUTIONS OBSERVED. TOLERATING VENT SETTINGS. TOLERATING GTF, NO RESIDUAL NOTED. KEPT CLEAN AND DRY . TURNED AND REPOSITIONED Q2 AND PRN. WOUND TX ORDERED DONE. SIDE RAILS UP AND LOCKED. BED KEPT AT LOWEST POSITION. CALL LIGHT KEPT WITHIN EASY REACH. CONTINUITY OF CARE ENDORSED TO AM NURSE.
--- NOTE | 2017-04-11 07:27 | NUR ---
RN NOTES RECEIVED PT FROM BOX BUILDER IN STABLE CONDITION, CHRONIC VENT TRACH DEPENDENT, A&0X1. TOLERATING VENT SETTINGS AT THE TIME NO SOB OR DISTRESS NOTED. A FIB ON THE TELE MONITOR. GTF AT 30ML/HR TOLERATING WELL. RFA 22G IV SITE INTACT NO IVF. BED LOCKED AND IN LOWEST POSITION, SIDE RAILS UPX3, CALL LIGHT WITHIN REACH, WILL CONT TO MONITOR.
[2017-04-11] MEDS: LEVETIRACETAM SOL (5 ML) 100 MG/ML UDC GT SCH ×2 (08:11→21:21)
[2017-04-11] MEDS: ZINC SULFATE 220 MG CAPSULE PO SCH (08:11)
[2017-04-11] MEDS: VIT B CMPLX 3/FA/VIT C/BIOTIN 1 TAB TABLET GT SCH (08:11)
[2017-04-11] MEDS: ACIDOPHILUS/BULGARICUS 1 EACH TAB.CHEW GT SCH ×2 (08:11→21:21)
[2017-04-11] MEDS: HYDROGEL DRESSING 90 GM TUBE TP SCH (08:12)
[2017-04-11] MEDS: Z GUARD REMEDY 2 OZ OINT TP SCH (08:12)
[2017-04-11] MEDS: CALCITRIOL ORAL SOLUTION 1 MCG/ML GT SCH (09:20)
[2017-04-11 10:31] LABS: BAND % (MANUAL) 2 % (0.0-5.0); LYMPHOCYTES % (MANUAL) 8 % (16-48); MONOCYTES % (MANUAL) 3 % (0-11.0); NEUTROPHILS % (MANUAL) 87 (42-76)
[2017-04-11] MEDS ORDERED: POTASSIUM CHLORIDE 20 MEQ POWDER PACKET GT ONE (15:30)
--- NOTE | 2017-04-11 18:32 | NUR ---
RN NOTES PT REMAINED IN STABLE CONDITION THROUGHOUT THE SHIFT, NO SIGNIFICANT CHANGES. ALL NEEDS MET. PT TOLERATING GTF AND VENT SETTINGS. PT CLEANED/TURNED/REPOSITIONED/SUCTIONED. BED LOCKED AND IN LOWEST POSITION, CALL LIGHT WITHIN REACH, WILL ENDORSE TO ONCOMING SHIFT.
[2017-04-12] VITALS (7 sets, daily range): BP systolic 84–105; BP diastolic 37–48
[2017-04-12] MEDS: ACETAMINOPHEN 650 MG/20.3 ML UDC GT PRN (00:46)
[2017-04-12] MEDS: ALBUTEROL FS 2.5 MG/0.5 ML VIAL.NEB NEB SCH ×4 (01:40→20:19)
[2017-04-12] MEDS: IPRATROPIUM NEB FS 0.5 MG/2.5 ML AMPUL.NEB NEB SCH ×4 (01:40→20:19)
[2017-04-12] MEDS: ERYTHROMYCIN ETHYLSUCCINATE 200 MG/5 ML SUSPENSION GT SCH ×3 (04:41→21:52)
[2017-04-12] MEDS: RENAL NOVASOURCE 1,000 ML BOTTLE GT PRN ×2 (04:41→18:34)
[2017-04-12] MEDS: MIDODRINE HCL (5MG) 5 MG TABLET PO SCH ×3 (04:41→21:51)
[2017-04-12 06:37] LABS: BASOPHILS % (AUTO) 0.3 % (0.0-2.0); EOSINOPHILS # (AUTO) 0.1 /CMM (0.0-0.7); EOSINOPHILS % (AUTO) 1.2 % (0.0-6.0); HEMATOCRIT 22 % (33-45); HEMOGLOBIN 7.5 g/dL (11.5-14.8); LYMPHOCYTES # (AUTO) 1.3 /CMM (0.8-4.8); LYMPHOCYTES % (AUTO) 11.7 % (20.0-44.0); MEAN CORPUSCULAR HEMOGLOBIN 38 PG (26.0-33.0); MEAN CORPUSCULAR HGB CONC 33 g/dl (31.0-36.0); MEAN CORPUSCULAR VOLUME 113 fL (82-100); MONOCYTES # (AUTO) 1.1 /CMM (0.1-1.30); MONOCYTES % (AUTO) 9.2 % (2.0-12.0); NEUTROPHILS # (AUTO) 8.9 /CMM (1.8-8.9); NEUTROPHILS % (AUTO) 77.6 % (43.0-81.0); PLATELET COUNT (AUTO) 178 /CMM (150-450); RDW COEFFICIENT OF VARIATION 23.1 (11.5-15.0); WHITE BLOOD COUNT (AUTO) 11.5 K/uL (4.3-11.0)
[2017-04-12 06:45] LABS: CALCIUM, SERUM 8.8 mg/dL (8.5-10.1); CARBON DIOXIDE 30 mmol/L (21-32); CHLORIDE 94 mmol/L (98-107); CREATININE 3.7 mg/dL (0.6-1.3); GLUCOSE 124 mg/dL (74-106); MAGNESIUM 2.2 mg/dL (1.8-2.4); PHOSPHORUS 4.3 mg/dL (2.5-4.9); POTASSIUM 3.4 mmol/L (3.5-5.1); SODIUM SERUM 136 mmol/L (136-145); UREA NITROGEN, BLOOD 57 mg/dL (7-18)
[2017-04-12 07:06] LABS: RED BLOOD CELL COUNT(AUTO) 1.99 MIL/uL (4.0-5.2)
[2017-04-12] MEDS ORDERED: EPOETIN ALFA (10,000 UNIT) 10,000 UNIT/ML VIAL SQ ONE (08:00)
[2017-04-12] MEDS: CALCITRIOL ORAL SOLUTION 1 MCG/ML GT SCH (08:45)
[2017-04-12] MEDS: VIT B CMPLX 3/FA/VIT C/BIOTIN 1 TAB TABLET GT SCH (08:45)
[2017-04-12] MEDS: ACIDOPHILUS/BULGARICUS 1 EACH TAB.CHEW GT SCH ×2 (08:45→21:51)
[2017-04-12] MEDS: ZINC SULFATE 220 MG CAPSULE PO SCH (08:45)
[2017-04-12] MEDS: LEVETIRACETAM SOL (5 ML) 100 MG/ML UDC GT SCH ×2 (08:45→21:51)
[2017-04-12] MEDS: HYDROGEL DRESSING 90 GM TUBE TP SCH (08:46)
[2017-04-12] MEDS: Z GUARD REMEDY 2 OZ OINT TP SCH (08:46)
--- NOTE | 2017-04-12 09:49 | NUR ---
RN NOTE PT RECEIVING HD AT BEDSIDE WILL CONTINUE TO MONITOR CLOSELY.
[2017-04-12] MEDS: ALBUMIN 25% 25 GM in PREMIX 1 EA IV PRN (10:04)
[2017-04-12] MEDS: DIGOXIN INJ 0.5 MG/2 ML AMPUL IV SCH (12:43)
--- NOTE | 2017-04-12 19:48 | NUR ---
RN OPENING NOTES: RECEIVED PATIENT ON BED NOT IN APPARENT DISTRESS. ON TRACH TO [facility] VENT, WITH SETTINGS ORDERED, TOLERATED WELL. PT IS ALOERT TO NAME AND PERSON, NON VERBAL, TONGAN SPEAKING. SR ON MONITOR HR AT 77 BPM. IV ACCESS ON RFA G22 INTACT. GT CLAMPED WHEN RECEIVED, NOTED TO BE CLOGGED. ABLE TO DECLOG GT AND NOW FLUSHING WELL. FEEDING ONGOING ORDERED. FAMILY AT BEDSIDE. SKIN CARE RENDERED. SAFETY MEASURES ENSURED. CONTINUOUSLY MONITORED.
[2017-04-13] VITALS: BP_SYST 93; BP_DIAS 37; BP_DIAS 97
[2017-04-13] MEDS: IPRATROPIUM NEB FS 0.5 MG/2.5 ML AMPUL.NEB NEB SCH ×3 (02:29→12:48)
[2017-04-13] MEDS: ALBUTEROL FS 2.5 MG/0.5 ML VIAL.NEB NEB SCH ×3 (02:29→12:48)
[2017-04-13 04:00] VITALS: BP 84/43
[2017-04-13] MEDS: ERYTHROMYCIN ETHYLSUCCINATE 200 MG/5 ML SUSPENSION GT SCH ×2 (04:29→12:28)
[2017-04-13] MEDS: ACETAMINOPHEN 650 MG/20.3 ML UDC GT PRN (04:29)
[2017-04-13] MEDS: MIDODRINE HCL (5MG) 5 MG TABLET PO SCH ×2 (04:29→12:28)
--- NOTE | 2017-04-13 06:44 | NUR ---
RN CLOSING NOTES: PATIENT REMAINED IN BED NOT IN APPARENT DISTRESS. KEPT ON TRACH TO [facility] VENT, TOLERATED WELL THROUGHOUT SHIFT. NO COMPLAINTS OF PAIN; GT INTACT, FEEDING TOLERATED WELL, NO NOTED RESIDUALS. IV ACCESS REMAINED INTACT. TEMP OF 99.9 NOTED COOLING MEASURES AND TYLENOL PER GT GIVEN ORDERED. REMAINED AFIB CONTROLLED ON MONITOR. SAFETY MEASURES ENSURED. SKIN CARE RENDERED. CONTINUOUSLY MONITORED. TO ENDORSE TO AM SHIFT RN.
[2017-04-13 07:48] LABS: ALBUMIN 2.6 g/dL (3.4-5.0); BILIRUBIN,DIRECT 1.8 mg/dL (0.0-0.2); BILIRUBIN,TOTAL 2.9 mg/dL (0.2-1.0); TOTAL PROTEIN, SERUM 6.1 g/dL (6.4-8.2)
[2017-04-13 08:00] VITALS: BP 86/46
[2017-04-13] MEDS: ZINC SULFATE 220 MG CAPSULE PO SCH (09:00)
[2017-04-13] MEDS: VIT B CMPLX 3/FA/VIT C/BIOTIN 1 TAB TABLET GT SCH (09:00)
[2017-04-13] MEDS: LEVETIRACETAM SOL (5 ML) 100 MG/ML UDC GT SCH (09:00)
[2017-04-13] MEDS: ACIDOPHILUS/BULGARICUS 1 EACH TAB.CHEW GT SCH (09:00)
[2017-04-13] MEDS: Z GUARD REMEDY 2 OZ OINT TP SCH (09:01)
[2017-04-13] MEDS: HYDROGEL DRESSING 90 GM TUBE TP SCH (09:01)
[2017-04-13] MEDS: CALCITRIOL ORAL SOLUTION 1 MCG/ML GT SCH (09:01)
[2017-04-13 12:00] VITALS: BP 96/57
[2017-04-13 12:28] VITALS: BP 96/57
--- NOTE | 2017-04-13 16:27 | NUR ---
CLAIM TRAINEE NOTE PT DISCHARGED TO [facility]BULANCE. PT STABLE WITH IN BASELINE. REPORT GIVEN TO SYLVESTER RN CALLED @ 1415. REPORT GIVEN TO EMT, ALL DC INSTRUCTION GIVEN TO PT. DC IV AND ID BAND. FLUSHED GT. PT CLEAN AND DRY WOUND CARE RENDERED. CALLED [facility] TO REPORT PT BASELINE BP TO XAVI PATEL. BP 96/43 ON DC. EXIT CARE DONE. ALL ORDERS CARRIED OUT. PICTURES TAKEN. PERSONAL BLANKET SENT WITH PT. Addendum: 04/13/17 at 1634 by JAIDEN SARMIENTO RN RAKAN ANDRADE CALLED AND REPORTED PT WILL BE DISCHARGED.
== END 2017-04-13 16:14 | DRG 853 ==
LOC: ER 20:58 → MED 23:51 → TELE 02-17 01:26 → TELE-TD 03-11 12:09 → TELE1 03-13 10:31
PROVIDERS: ADMIT Internal Medicine; ATTEND Internal Medicine
PROC: 5A1955Z Respiratory Ventilation, Greater than 96 Consecutive Hours (ICD-10-PCS; principal; 2017-02-16)
PROC: 0W9G3ZZ Drainage of Peritoneal Cavity, Percutaneous Approach (ICD-10-PCS; 2017-02-17)
PROC: 5A1D70Z Performance of Urinary Filtration, Intermittent, Less than 6 Hours Per Day (ICD-10-PCS; 2017-02-17)
PROC: 0W993ZZ Drainage of Right Pleural Cavity, Percutaneous Approach (ICD-10-PCS; 2017-02-18)
PROC: 0JB70ZZ Excision of Back Subcutaneous Tissue and Fascia, Open Approach (ICD-10-PCS; 2017-02-21)
PROC: 0D20XUZ Change Feeding Device in Upper Intestinal Tract, External Approach (ICD-10-PCS; 2017-03-01)
PROC: 30233N1 Transfusion of Nonautologous Red Blood Cells into Peripheral Vein, Percutaneous Approach (ICD-10-PCS; 2017-03-08)
PROC: 0DB60ZZ Excision of Stomach, Open Approach (ICD-10-PCS; 2017-03-11)
PROC: 0WQF0ZZ Repair Abdominal Wall, Open Approach (ICD-10-PCS; 2017-03-11)
PROC: 0WBF0ZZ Excision of Abdominal Wall, Open Approach (ICD-10-PCS; 2017-03-11)
PROC: 0JB80ZZ Excision of Abdomen Subcutaneous Tissue and Fascia, Open Approach (ICD-10-PCS; 2017-03-11)
PROC: 0DH63UZ Insertion of Feeding Device into Stomach, Percutaneous Approach (ICD-10-PCS; 2017-03-11)
PROC: 0DJ08ZZ Inspection of Upper Intestinal Tract, Via Natural or Artificial Opening Endoscopic (ICD-10-PCS; 2017-03-11)
PROC: 05PYX3Z Removal of Infusion Device from Upper Vein, External Approach (ICD-10-PCS; 2017-03-22)
PROC: 0KBP0ZZ Excision of Left Hip Muscle, Open Approach (ICD-10-PCS; 2017-03-24)
PROC: 0KBN0ZZ Excision of Right Hip Muscle, Open Approach (ICD-10-PCS; 2017-03-24)
PROC: 05HM33Z Insertion of Infusion Device into Right Internal Jugular Vein, Percutaneous Approach (ICD-10-PCS; 2017-03-28)
PROC: B513YZA Fluoroscopy of Right Jugular Veins using Other Contrast, Guidance (ICD-10-PCS; 2017-03-28)
DX: A41.9 Sepsis, unspecified organism (principal); L89.154 Pressure ulcer of sacral region, stage 4; J90 Pleural effusion, not elsewhere classified; J18.9 Pneumonia, unspecified organism; K31.6 Fistula of stomach and duodenum; J94.8 Other specified pleural conditions; Z99.11 Dependence on respirator [ventilator] status; J96.11 Chronic respiratory failure with hypoxia; I12.0 Hypertensive chronic kidney disease with stage 5 chronic kidney disease or end stage renal disease; N18.6 End stage renal disease; T82.7XXA Infection and inflammatory reaction due to other cardiac and vascular devices, implants and grafts, initial encounter; R18.8 Other ascites; N39.0 Urinary tract infection, site not specified; B37.49 Other urogenital candidiasis; E87.0 Hyperosmolality and hypernatremia; J93.9 Pneumothorax, unspecified; K94.22 Gastrostomy infection; Z93.0 Tracheostomy status; E11.22 Type 2 diabetes mellitus with diabetic chronic kidney disease; G40.909 Epilepsy, unspecified, not intractable, without status epilepticus; E78.5 Hyperlipidemia, unspecified; K21.9 Gastro-esophageal reflux disease without esophagitis; Z86.73 Personal history of transient ischemic attack (TIA), and cerebral infarction without residual deficits; Z99.2 Dependence on renal dialysis; Z66 Do not resuscitate; D63.1 Anemia in chronic kidney disease; I48.0 Paroxysmal atrial fibrillation; K74.69 Other cirrhosis of liver; Z79.899 Other long term (current) drug therapy; K43.2 Incisional hernia without obstruction or gangrene; I27.20 Pulmonary hypertension, unspecified; L98.8 Other specified disorders of the skin and subcutaneous tissue; L89.621 Pressure ulcer of left heel, stage 1; Z22.322 Carrier or suspected carrier of Methicillin resistant Staphylococcus aureus; Y73.8 Miscellaneous gastroenterology and urology devices associated with adverse incidents, not elsewhere classified; Y92.129 Unspecified place in nursing home as the place of occurrence of the external cause; Y84.8 Other medical procedures as the cause of abnormal reaction of the patient, or of later complication, without mention of misadventure at the time of the procedure; I48.2 Chronic atrial fibrillation; K72.90 Hepatic failure, unspecified without coma; R13.10 Dysphagia, unspecified; Y83.3 Surgical operation with formation of external stoma as the cause of abnormal reaction of the patient, or of later complication, without mention of misadventure at the time of the procedure
CPT/HCPCS: 31720; 36415; 71010-TC; 74000-TC; 76942-TC; 80048-TC; 80053-TC; 80074; 80076-TC; 80150; 80162-TC; 80202-TC; 81000-TC; 82247-TC; 82248-TC; 82962-TC; 83605-TC; 83690-TC; 83735-TC; 84100-TC; 84484-TC; 85025-TC; 85027-TC; 85610-TC; 85730-TC; 86850-TC; 86921-TC; 87040-TC; 87070-TC; 87081-TC; 87086-TC; 87186-TC; 88305-TC; 90935-TC; 94002-TC; 94003-TC; 94640-TC; 94760-TC; 94762-TC; 99082-TC; A4216; A4217; A4606; A4623; A6248; A6253; A6402; A6403; A7526; C1750; J0278; J0690; J0692; J0885; J1160; J1170; J1364; J1450; J1644; J1953; J1956; J2020; J2185; J2370; J2405; J3010; J3370; J3475; J3480; J3490; J7030; J7040; J7042; J7050; J7060; J8597; P9016-BL; P9047; Q0162; Z7610

== ENCOUNTER 2017-05-06 12:34 | Inpatient (IN) | payer MEDICARE, OTHER ==
[~2017-05-06] VITALS: Ht 152.4 cm; Wt 45.8 kg
[~2017-05-06 12:34] MED LIST changes: -ACET160E13 GT; +ACET160E36 GT; +ACID1TAB12 GT; -AMIN30LI4 GT; -DOCU100T2 GT; +IPRA3AMP IH; -LACT10SO7 GT; +MIDO5TAB GT; -MIDO5TAB PO; -SILD20TA2 GT
[2017-05-06] MEDS ORDERED: IV NS 0.9% 1,000 ML BAG IV ONE (13:00)
[2017-05-06] MEDS ORDERED: PANTOPRAZOLE 40 MG VIAL IV ONE (13:00)
--- NOTE | 2017-05-06 13:00 | NUR ---
kiara from [facility] acute dt possible gi bleeding,. patient was sent by MD Quinones,. per report patient has black tarry stool x 3 days now. Patient is awke, however non verbal. Noted vent/ trache dependent. Pt receives Hd- noted with hd access on rcw. Noted patient with ascities. Patient is afebrile. Vss. Notified Md Brannon
[2017-05-06] MEDS ORDERED: PANTOPRAZOLE 40 MG VIAL ONE (13:01)
[2017-05-06 13:04] VITALS: BP 98/41
--- NOTE | 2017-05-06 13:09 | NUR ---
PT PLACED INTO [facility] VENT VIA TRACH SIZE #8 [place]. VENT SETTINGS BELLOW PER RT TRANSPORTEr AC 14 VT 500 FIO2 35% PEEP +5 AMBU BAG @ HOB. Addendum: 05/06/17 at 1311 by JOSE HEAD RT Amended: Links added.
[2017-05-06 13:13] LABS: BASOPHILS # (AUTO) 0.1 /CMM (0.0-0.2); BASOPHILS % (AUTO) 0.9 % (0.0-2.0); EOSINOPHILS # (AUTO) 0.2 /CMM (0.0-0.7); EOSINOPHILS % (AUTO) 2.7 % (0.0-6.0); HEMATOCRIT 21 % (33-45); LYMPHOCYTES # (AUTO) 1.6 /CMM (0.8-4.8); LYMPHOCYTES % (AUTO) 19.1 % (20.0-44.0); MEAN CORPUSCULAR HEMOGLOBIN 37 PG (26.0-33.0); MEAN CORPUSCULAR HGB CONC 33 g/dl (31.0-36.0); MEAN CORPUSCULAR VOLUME 110 fL (82-100); MONOCYTES # (AUTO) 0.7 /CMM (0.1-1.30); MONOCYTES % (AUTO) 8.4 % (2.0-12.0); NEUTROPHILS # (AUTO) 5.6 /CMM (1.8-8.9); NEUTROPHILS % (AUTO) 68.9 % (43.0-81.0); PLATELET COUNT (AUTO) 261 /CMM (150-450); RDW COEFFICIENT OF VARIATION 16.3 (11.5-15.0); WHITE BLOOD COUNT (AUTO) 8.2 K/uL (4.3-11.0)
[2017-05-06 13:22] LABS: RED BLOOD CELL COUNT(AUTO) 1.87 MIL/uL (4.0-5.2)
[2017-05-06 13:23] LABS: HEMOGLOBIN 6.8 g/dL (11.5-14.8)
[2017-05-06 13:27] LABS: CALCIUM, SERUM 9.2 mg/dL (8.5-10.1); CARBON DIOXIDE 28 mmol/L (21-32); CHLORIDE 99 mmol/L (98-107); GLUCOSE 119 mg/dL (74-106); POTASSIUM 3.8 mmol/L (3.5-5.1); SODIUM SERUM 135 mmol/L (136-145); UREA NITROGEN, BLOOD 15 mg/dL (7-18)
[2017-05-06 13:31] LABS: INR 1.09 (0.87-1.13); PROTHROMBIN TIME 11.3 SECS (9.5-12.7)
--- NOTE | 2017-05-06 13:32 | NUR ---
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
[2017-05-06 13:33] LABS: ALANINE AMINOTRANSFERASE 6 U/L (12-78); ALBUMIN 2.7 g/dL (3.4-5.0); ALKALINE PHOSPHATASE 303 U/L (46-116); ASPARTATE AMINOTRANSFERASE 24 U/L (15-37); BILIRUBIN,DIRECT 0.4 mg/dL (0.0-0.2); BILIRUBIN,TOTAL 0.7 mg/dL (0.2-1.0); LIPASE 152 U/L (73-393); TOTAL PROTEIN, SERUM 7.5 g/dL (6.4-8.2)
[2017-05-06 13:35] LABS: TROPONIN I 0.023 ng/mL (0.00-0.056)
[2017-05-06] MEDS ORDERED: AMIN30LI4 GT (13:41)
--- NOTE | 2017-05-06 14:25 | NUR ---
obtained concent for blood transfusion
--- NOTE | 2017-05-06 14:46 | NUR ---
PATIENT TRANSPORTED TO [facility]
--- NOTE | 2017-05-06 15:59 | NUR ---
RT NOTE PT RECEIVED ON MECHANICAL VENT WITH NOTED SETTINGS, NO RESPIRATORY DISTRESS NOTED,SPO2 REMAINS @100%. AMBUBAG AT BEDSIDE, VENT PLUGGED INTO RED OUTLET, DISCONNECT ALARM VERIFIED AND AUDIBLE. PEEP DC PER DR. HAN. Addendum: 05/06/17 at 1601 by SO HILARIO RT Amended: Links added.
[2017-05-06 16:00] VITALS: BP 105/67
--- NOTE | 2017-05-06 16:01 | NUR ---
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 With trache to vent, tolerated settings well. Accompanied by son, signed consent for blood transfusiona dn US guided paracentesis. Placed on bed on comfortable position. Skin assessment done. Noted with abdominal distention, abdominal excoriation, sacral wound and left buttock excoriation, taken pictures and attached to chart. Still noted with bloody BM, sent to lab. S/E by dr. Quinones, with son at bedside, discussed re: the POC. LFA PIC 18 intact. GT intact, will keep NPO per MD. 1530: S/E by dr. Greer, on AC 14 Vt 500 35% PEEP +5, with order to DC PEEP. RT DCd PEEP, tolerated at this time. 1600: Paracentesis done by Dr. Simmons with US tech at bedside. Son at bedside, aware for the POC.
[2017-05-06 16:21] VITALS: BP 105/67
[2017-05-06 16:37] VITALS: BP 110/64
[2017-05-06] MEDS: PANTOPRAZOLE 40 MG VIAL IV SCH (16:48)
[2017-05-06 17:00] VITALS: BP 109/68
--- NOTE | 2017-05-06 17:10 | NUR ---
CARRY OUT CLERK AND SHELF STOCKER NOTE Done with paracentesis, tolerated. Noted with 5LPM of body fluid, patient tolerated procedure. 1 unit of PRBC ongoing, tolerated, no any adverse reaction noted.
[2017-05-06 17:58] VITALS: BP 105/67
--- NOTE | 2017-05-06 18:55 | NUR ---
SUPERVISOR STATEMENT CLERKS NOTE Done with blood transfusion, no any adverse reactions. S/E by GI, with order of labs in am. No additional blood for now. Changed diapers #3, still with bright red stool.
[2017-05-06 20:11] LABS: BAND % (MANUAL) 4 % (0.0-5.0); BASOPHILS % (MANUAL) 0 % (0.0-2.0); EOSINOPHILS % (MANUAL) 4 % (0-4); LYMPHOCYTES % (MANUAL) 20 % (16-48); MONOCYTES % (MANUAL) 5 % (0-11.0); NEUTROPHILS % (MANUAL) 67 (42-76)
--- NOTE | 2017-05-06 21:06 | NUR ---
RN:TELE: PT RECEIVED IN BED ON VENT, TOLERATING CURRENT SETTINGS. NO APPARENT DISTRESS NOTED. PT RECEIVED 1 UNIT PRBC DURING DAYSHIFT FOR BRIGHT RED BLOODY STOOLS. PT S/P PARACENTESIS WITH 5 L REMOVED. NO FURTHER ORDERS FOR BLOOD TX. PT TO HAVE HD IN AM. WILL CONTINUE TO MONITOR CLOSELY. ASPIRATION AND FALL PRECAUTIONS IN PLACE.
[2017-05-07] VITALS (8 sets, daily range): BP systolic 84–159; BP diastolic 34–78
[2017-05-07 06:31] LABS: BASOPHILS % (AUTO) 0.5 % (0.0-2.0); EOSINOPHILS # (AUTO) 0.1 /CMM (0.0-0.7); EOSINOPHILS % (AUTO) 1.9 % (0.0-6.0); HEMATOCRIT 22 % (33-45); HEMOGLOBIN 7.4 g/dL (11.5-14.8); LYMPHOCYTES # (AUTO) 1.3 /CMM (0.8-4.8); LYMPHOCYTES % (AUTO) 19.9 % (20.0-44.0); MEAN CORPUSCULAR HEMOGLOBIN 35 PG (26.0-33.0); MEAN CORPUSCULAR HGB CONC 34 g/dl (31.0-36.0); MEAN CORPUSCULAR VOLUME 105 fL (82-100); MONOCYTES # (AUTO) 0.8 /CMM (0.1-1.30); NEUTROPHILS # (AUTO) 4.2 /CMM (1.8-8.9); NEUTROPHILS % (AUTO) 65.7 % (43.0-81.0); PLATELET COUNT (AUTO) 200 /CMM (150-450); RDW COEFFICIENT OF VARIATION 20.2 (11.5-15.0); RED BLOOD CELL COUNT(AUTO) 2.11 MIL/uL (4.0-5.2); WHITE BLOOD COUNT (AUTO) 6.4 K/uL (4.3-11.0)
--- NOTE | 2017-05-07 07:10 | NUR ---
RN OPENING NOTES RECV'D REPORT FROM NOC RN. HOB ELEVATED. VENT TRACH 100%O2SATS. EYES OPEN NON VERBAL. POS OB STOOL CONT TO COLLECT STOOLS. HGB 7.7 TRANSFUSE IS <7. PLAN FOR DIALYSIS AND CT ABD TODAY. NPO PEG CLAMPED. LFA 18G SL. TELE SR 90'S. PRESSURE ULCER SACRUM. PROTONIX IVP. BED NEAR NURSES STATION. LOW LOCKED POSITION. CALL LIGHT IN REACH. WILL CONT TO MONITOR CLOSELY.
[2017-05-07 07:16] LABS: IRON, SERUM 36 ug/dl (50-175); TOTAL IRON BINDING CAPACITY 167 ug/dl (250-450)
[2017-05-07 07:19] LABS: FERRITIN 2662 ng/mL (8-388)
[2017-05-07] MEDS: PANTOPRAZOLE 40 MG VIAL IV SCH ×2 (11:50→16:22)
--- NOTE | 2017-05-07 17:55 | NUR ---
PT RESP DISTRESS. COUGHING SUCTION HELPED SOME. AUDIBLE WHEEZES. PT REQUESTING RT TX. OBTAINED NEBULIZER ORDERS FROM DR. BENITEZ AND NOTIFIED RT. PAGED DR. MONTOYA AWAITING CALLBACK. REGARDING TELE AFIB UP TO 127 BPM. BASELINE TODAY HAD BEEN 95-105. CARDIAC HX UNCLEAR FROM CHART.
[2017-05-07] MEDS ORDERED: IPRATROPIUM NEB FS 0.5 MG/2.5 ML AMPUL.NEB ONE (17:59)
[2017-05-07] MEDS ORDERED: LEVALBUTEROL HCL NEB 1.25 MG/0.5 ML VIAL.NEB NEB PRN (18:00)
[2017-05-07] MEDS ORDERED: IPRATROPIUM NEB FS 0.5 MG/2.5 ML AMPUL.NEB NEB PRN (18:00)
[2017-05-07] MEDS ORDERED: IV NS 0.9% 500 ML IV STA (18:18)
[2017-05-07] MEDS ORDERED: ALBUTEROL HALF STRENGTH 1.25 MG/3 ML VIAL.NEB NEB PRN (18:30)
[2017-05-07] MEDS ORDERED: ALBUTEROL FS 2.5 MG/0.5 ML VIAL.NEB NEB PRN (18:30)
[2017-05-07] MEDS ORDERED: METOPROLOL TARTRATE 25 MG TABLET PO ONE (18:30)
[2017-05-07] MEDS ORDERED: METOPROLOL TARTRATE 25 MG TABLET PO STA (18:32)
--- NOTE | 2017-05-07 18:34 | NUR ---
ORDERS FROM DR CALIX FOR ONE TIME METOPROLOL IF SBP >90 AND ALSO ORDER FOR NS 500ML BOLUS X 1. SBP 84 PRIOR TO BOLUS. WILL RECHECK BP. CN MARY AWARE. PT STATUS CHANGED TO WHITNEY FOR CLOSER OBSERVATION.
--- NOTE | 2017-05-07 18:50 | NUR ---
RN CLOSING NOTE FOLLOW UP BP POST BOLUS SBP 89 AND 100 BPM HELD METOPROLOL PER ORDERS AND NOTIFIED CN MARY. PT APPEARS CALM AND COMFORTABLE. SON AT BEDSIDE. CALL LIGHT IN REACH WILL ENDORSE REPORT TO NOC RN. BED IN LOW LOCKED POSITION. SIDERAILS UP. LEFT WRIST 18G PATENT. VENT SETTINGS UNCHANGED. 100% O2 SATS.
--- NOTE | 2017-05-07 19:41 | NUR ---
RN OPENING NOTES RECV'D REPORT FROM AM SHIFT RN. HOB ELEVATED. VENT TRACH 100%O2SATS. EYES OPEN NON VERBAL. POS OB STOOL CONT TO COLLECT STOOLS. HGB 7.7 TRANSFUSE IS <7. PLAN FOR DIALYSIS AND CT ABD AM BEFORE DAILYSIS. NPO PEG CLAMPED. LFA 18G SL. S/P IV FLUIDS BOLUS, NO SIGN OF FLUID EXCESS SBP 89 PT AOX2 NON VERBAL .TELE SR 90'S. PRESSURE ULCER SACRUM. BED NEAR NURSES STATION. LOW LOCKED POSITION. CALL LIGHT IN REACH. WILL CONT TO MONITOR CLOSELY.
[2017-05-08] VITALS (8 sets, daily range): BP systolic 87–112; BP diastolic 34–47
--- NOTE | 2017-05-08 06:31 | NUR ---
RN CLOSING NOTES ENDORSED REPORT TO AM SHIFT RN. HOB ELEVATED. VENT TRACH 100%O2SATS. EYES OPEN NON VERBAL. POS OB STOOL COLLECTED . HGB 7.7 TRANSFUSE IS <7. PLAN FOR DIALYSIS AND CT ABD AM BEFORE DAILYSIS. NPO PEG CLAMPED. LFA 18G SL. S/P IV FLUIDS BOLUS, NO SIGN OF FLUID EXCESS SBP 89 PT AOX2 NON VERBAL .TELE SR 90'S. PRESSURE ULCER SACRUM. BED NEAR NURSES STATION. LOW LOCKED POSITION. CALL LIGHT IN REACH. WILL CONT TO MONITOR CLOSELY.
[2017-05-08 06:41] LABS: BASOPHILS % (AUTO) 0.6 % (0.0-2.0); EOSINOPHILS # (AUTO) 0.1 /CMM (0.0-0.7); EOSINOPHILS % (AUTO) 0.7 % (0.0-6.0); HEMATOCRIT 22 % (33-45); HEMOGLOBIN 7.4 g/dL (11.5-14.8); LYMPHOCYTES # (AUTO) 1.5 /CMM (0.8-4.8); LYMPHOCYTES % (AUTO) 20.7 % (20.0-44.0); MEAN CORPUSCULAR HEMOGLOBIN 36 PG (26.0-33.0); MEAN CORPUSCULAR HGB CONC 34 g/dl (31.0-36.0); MEAN CORPUSCULAR VOLUME 107 fL (82-100); MONOCYTES # (AUTO) 0.9 /CMM (0.1-1.30); NEUTROPHILS # (AUTO) 4.8 /CMM (1.8-8.9); PLATELET COUNT (AUTO) 191 /CMM (150-450); RDW COEFFICIENT OF VARIATION 20.2 (11.5-15.0); RED BLOOD CELL COUNT(AUTO) 2.04 MIL/uL (4.0-5.2); WHITE BLOOD COUNT (AUTO) 7.2 K/uL (4.3-11.0)
[2017-05-08 07:13] LABS: CALCIUM, SERUM 8.9 mg/dL (8.5-10.1); CARBON DIOXIDE 28 mmol/L (21-32); CHLORIDE 105 mmol/L (98-107); CREATININE 1.7 mg/dL (0.6-1.3); GLUCOSE 73 mg/dL (74-106); MAGNESIUM 2.1 mg/dL (1.8-2.4); PHOSPHORUS 2.7 mg/dL (2.5-4.9); POTASSIUM 3.5 mmol/L (3.5-5.1); SODIUM SERUM 144 mmol/L (136-145); UREA NITROGEN, BLOOD 18 mg/dL (7-18)
--- NOTE | 2017-05-08 07:30 | NUR ---
RN OPENING NOTES PT IN BED, OPENS EYES, NON VERBAL, FOLLOWS SIMPLE COMMAND, UKRAINIAN SPEAKING, WITH PORTEX #8 VENT DEPENDENT WITH SETTINGS ORDERED, TOLERATING WELL, TELEMETRY READS AFIB 109, MD AWARE, LFA #18 FLUSHES WELL SITE CLEAR, RT UPPER CW HD CATH CDI DRESSING. SEE NURSING FLOWSHEET FOR SKIN ISSUES, NPO FOR NOW FOR CT OF ABDOMEN WITH CONTRAST, FOLLOWED BY HD TODAY. BED LOW LOCKED, CALL LIGHT WITHIN REACH, WILL CONT TO MONITOR.
[2017-05-08] MEDS: PANTOPRAZOLE 40 MG VIAL IV SCH ×2 (09:19→17:13)
--- NOTE | 2017-05-08 09:30 | NUR ---
RN NOTES ADMINISTERED DUE MEDS.
[2017-05-08] MEDS ORDERED: IOHEXOL-300 100 ML VIAL IV ONE (10:12)
[2017-05-08] MEDS ORDERED: IV NS 0.9% 250 ML IV ONE (10:12)
[2017-05-08] MEDS ORDERED: CT SWABBABLE VALVE TRANS SET 1 EA INFUS.SET MC ONE (10:12)
--- NOTE | 2017-05-08 12:00 | NUR ---
AYLIN NOTES NIXON COMPLETED 4L OUT. Addendum: 05/08/17 at 1503 by SARINA SEGAL RN CORRECTION: NIXON COMPLETED CLEANSING ONLY. O OUTPUT.
[2017-05-08] MEDS: IV 1/2NS 1000 ML 1,000 ML IV PRN (15:47)
[2017-05-08] MEDS: HYDROGEL DRESSING 90 GM TUBE TP SCH (17:33)
--- NOTE | 2017-05-08 18:59 | NUR ---
RN NOTES ALL NEEDS MET. PM CARE DONE. VS STABLE. IVF ONGOING. FOR SACRAL WOUND DEBRIDEMENT MATHEW. CONSENT SIGNED. ALL NEEDS MET. NO OTHER SIGNIFICANT CHANGE IN CONDITION. SAFETY MEASURES IN PLACE. WILL ENDORSE TO NEXT SHIFT FOR CONNOR.
--- NOTE | 2017-05-08 20:00 | NUR ---
AEGIS OPERATIONS SPECIALIST NOTE RECEIVED PT IN BED ASLEEP, AROUSABLE. JAPANESE SPEAKING FOLLOW SOME COMMANDS. ON VENT/TRACH TOLERATING THE SETTINGS WELL. ON TELE AFIB CONTROLLED 98. PT IS NPO DUE AM PROCEDURE. IVF 1/2 NS @ 50 ML/HR INFUSING WELL, NO S/S OF INFILTRATION NOTED. DRESSING ON DECUB I/C/D. REPOSITION HER FOR SKIN MANAGEMENT AND WILL CONTINUE Q2H DURING THE SHIFT. FAMILY AT BED SIDE. SIDE RAILS UP X 3 AND CALL LIGHT WITHIN REACH. CONTINUE TO MONITOR HER.
[2017-05-09] VITALS (8 sets, daily range): BP systolic 88–132; BP diastolic 44–64
--- NOTE | 2017-05-09 06:52 | NUR ---
LEAD INVESTIGATOR NOTE PT IN BED AWAKE. NO DISTRESS OR DISCOMFORT NOTED. PT REMAIN NPO. IVF INFUSING WELL NO S/ S OF INFILTRATION NOTED. KEPT HER DRY AND CLEAN. ALL NEEDS ATTENDED. WILL ENDORSE TO DAY SHIFT NURSE FOR CONTINUE TO CARE.
--- NOTE | 2017-05-09 07:32 | NUR ---
RADIOLOGIC TECHNOLOGY INSTRUCTOR NOTES RECEIVED PT ON PT IN BED, OPENS EYES, NON VERBAL, FOLLOWS SIMPLE COMMAND, MARSHALLESE SPEAKING, WITH PORTEX #8 VENT DEPENDENT WITH SETTINGS ORDERED, TOLERATING WELL, TELEMETRY READS AFIB CONTROLLED. IV ACCES AT RYLEE G18 1/2 NS 50ML/HR RUNNING WELL. NO SIGNS OF INFECTION NOTED. HD CATH RUC NO REDNESS NOTED. HEAD OF BED KEPT ELEVATED. CALL LIGHT WITHIN REACH. SIDE RAILS UP. WILL CONTINUE TO MONITOR PT.
[2017-05-09 07:48] LABS: BASOPHILS # (AUTO) 0.1 /CMM (0.0-0.2); BASOPHILS % (AUTO) 0.9 % (0.0-2.0); EOSINOPHILS # (AUTO) 0.2 /CMM (0.0-0.7); HEMATOCRIT 22 % (33-45); HEMOGLOBIN 7.2 g/dL (11.5-14.8); LYMPHOCYTES # (AUTO) 1.9 /CMM (0.8-4.8); MEAN CORPUSCULAR HEMOGLOBIN 35 PG (26.0-33.0); MEAN CORPUSCULAR HGB CONC 33 g/dl (31.0-36.0); MEAN CORPUSCULAR VOLUME 107 fL (82-100); MONOCYTES # (AUTO) 0.9 /CMM (0.1-1.30); MONOCYTES % (AUTO) 11.3 % (2.0-12.0); NEUTROPHILS # (AUTO) 5.2 /CMM (1.8-8.9); NEUTROPHILS % (AUTO) 62.8 % (43.0-81.0); PLATELET COUNT (AUTO) 190 /CMM (150-450); RDW COEFFICIENT OF VARIATION 20.2 (11.5-15.0); RED BLOOD CELL COUNT(AUTO) 2.05 MIL/uL (4.0-5.2); WHITE BLOOD COUNT (AUTO) 8.3 K/uL (4.3-11.0)
[2017-05-09 08:06] LABS: CARBON DIOXIDE 24 mmol/L (21-32); CHLORIDE 105 mmol/L (98-107); GLUCOSE 74 mg/dL (74-106); PHOSPHORUS 3.1 mg/dL (2.5-4.9); POTASSIUM 4.1 mmol/L (3.5-5.1); SODIUM SERUM 143 mmol/L (136-145); UREA NITROGEN, BLOOD 18 mg/dL (7-18)
[2017-05-09] MEDS: PANTOPRAZOLE 40 MG VIAL IV SCH (08:31)
[2017-05-09] MEDS: HYDROGEL DRESSING 90 GM TUBE TP SCH (08:37)
--- NOTE | 2017-05-09 08:45 | NUR ---
TRIMMING PRESS OPERATOR NOTES DR ZULUAGA AWARE PATIENT HR CONSTANTLY 100-120. PER MD HE WILL ADD ORDERS. MD AT BEDSIDE
[2017-05-09 09:29] LABS: EOSINOPHILS % (MANUAL) 1 % (0-4); LYMPHOCYTES % (MANUAL) 20 % (16-48); MONOCYTES % (MANUAL) 6 % (0-11.0); NEUTROPHILS % (MANUAL) 73 (42-76)
[2017-05-09] MEDS ORDERED: DIGOXIN INJ 0.5 MG/2 ML AMPUL IV ONE (09:30)
[2017-05-09] MEDS ORDERED: Z GUARD REMEDY 2 OZ OINT TP PRN (10:30)
--- NOTE | 2017-05-09 10:32 | NUR ---
WOUND CARE CONSULT: PT SEEN FOR ABDOMINAL SURGICAL SITE. RECOMMEND SURGICAL CONSULT. ABDOMINAL WOUND TO BE FOLLOWED BY DR GISELLA MELÉNDEZ PER . SACRAL STAGE [address] LYLES. DEFER TO SURGICAL TEAM FOR WOUND TREATMENT PLAN. PT ON KOBE ISOFLEX LOW AIRLOSS BED. ALL SKIN PROTECTION MEASURES IN PLACE AND DISCUSSED WITH NURSING STAFF. WILL SEE PRN. VANCE IN AGREEMENT WITH PLAN OF CARE. CURRENT DENISE SCORE IS 12. Addendum: 05/09/17 at 1035 by ALONSO GARZA WNDNU Amended: Links added.
--- NOTE | 2017-05-09 11:15 | NUR ---
RN CASE MANAGEMENT NOTES SPOKE WITH DR GOSS PATIENT ON ISOFLEX BED OKAY.
[2017-05-09] MEDS: Z GUARD REMEDY 2 OZ OINT TP SCH (11:22)
--- NOTE | 2017-05-09 12:44 | NUR ---
[facility] NOTES NICOLAS BEST BONDING MACHINE SETTER AT BEDSIDE. WILL UPDATE IF PATIENT ABLE TO RESUME DIET; WILL F/U
[2017-05-09] MEDS ORDERED: PANTOPRAZOLE 40 MG/PACK PACK GT SCH (15:00)
[2017-05-09] MEDS: VIT B CMPLX 3/FA/VIT C/BIOTIN 1 TAB TABLET GT SCH (15:00)
[2017-05-09] MEDS ORDERED: ACETAMINOPHEN 650 MG/20.3 ML UDC GT PRN (15:00)
[2017-05-09] MEDS: CALCITRIOL 0.25 MCG CAPSULE GT SCH (15:00)
[2017-05-09] MEDS: IV 1/2NS 1000 ML 1,000 ML IV PRN (15:01)
--- NOTE | 2017-05-09 15:30 | NUR ---
LOAD OUT SUPERVISOR NOTES PT. HAS BLACK TARRY STOOL. NOTIFIED FURNITURE CLEANER NICOLAS MOORE. NO NEW ORDERS AT THIS TIME
--- NOTE | 2017-05-09 15:49 | NUR ---
GROUP HOME PARAPROFESSIONAL NOTES PER NICOLAS BEST ORDER PROCEDURE CONSENT FOR EGD TO BE DONE TUESDAY
--- NOTE | 2017-05-09 15:49 | NUR ---
CIVIL RIGHTS ATTORNEY NOTE PER NICOLAS BEST WILLOW WORKER PT IS OKAY TO START TUBE FEEDING.
[2017-05-09] MEDS ORDERED: RENAL NOVASOURCE 1,000 ML BOTTLE GT PRN (16:00)
[2017-05-09] MEDS: PROSOURCE / PROSTAT (PYXIS) 30 ML UDC GT SCH (17:31)
[2017-05-09] MEDS: METOCLOPRAMIDE HCL 10 MG/10 ML UDC GT SCH (17:31)
[2017-05-09] MEDS: PANTOPRAZOLE 40 MG/PACK PACK GT SCH (17:31)
--- NOTE | 2017-05-09 18:10 | NUR ---
RECREATION ASSISTANT NOTES MULTIPLE CALLS TO KITCHEN TO HAVE TUBE FEED BROUGHT UP
[2017-05-09] MEDS: IPRATROPIUM NEB FS 0.5 MG/2.5 ML AMPUL.NEB NEB SCH (19:08)
[2017-05-09] MEDS: ALBUTEROL FS 2.5 MG/0.5 ML VIAL.NEB NEB SCH (19:08)
--- NOTE | 2017-05-09 19:09 | NUR ---
PT RECEIVED ON MECHANICAL VENT WITH NOTED SETTINGS, TXS GIVEN ORDERED NO ADVERSE REACTION NOTED, AMBUBAG AT BEDSIDE, VENT PLUGGED INTO RED OUTLET, ALARM CHECKED AND AUDIBLE, SXD MODERATE AMOUNT OF THICK PALE YELLOW SECRETIONS,NO RESPIRATORY DISTRESS NOTED. WILL CONTINUE TO MONITOR THE PATIENT
--- NOTE | 2017-05-09 19:12 | NUR ---
CORONER NOTES NO ACUTE CHANGES IN PT CONDITION DURING SHIFT. ON [facility] VENTILATOR TOLERATING WELL.NO SIGNS OF DISTRESS. IV ACCESS AT RYLEE #18 NO SIGNS OF INFECTION AND REDNESS. HEAD OF BED KEPT ELEVATED. CALL LIGHTS WITHIN REACH. HEAD OF BED KEPT ELEVATED. SIDE RAILS UP. WILL ENDORSE TO THE PM NURSE
--- NOTE | 2017-05-09 19:30 | NUR ---
APPLE SOLUTIONS CONSULTANT INITIAL NOTE RECEIVED PATIENT IN BED ASLEEP, AROUSABLE. YI SPEAKING FOLLOW SOME COMMANDS, FAMILY MEMBERS AT BEDSIDE. TRACH MIDLINE AND INTACT, TOLERATING PRESCRIBED SETTINGS WELL. ON TELE AFIB CONTROLLED 70S. IVF 1/2 NS @ 50 ML/HR INFUSING WELL, NO S/S OF INFILTRATION NOTED. DRESSING ON DECUB I/C/D. REPOSITION HER FOR SKIN MANAGEMENT AND WILL CONTINUE Q2H DURING THE SHIFT. SIDE RAILS UP X 3 AND CALL LIGHT WITHIN REACH. CONTINUE TO MONITOR HER.
[2017-05-09] MEDS: SEVELAMER CARBONATE 0.8 GM POWD.PACK GT SCH (20:43)
[2017-05-09] MEDS: LEVETIRACETAM SOL (5 ML) 100 MG/ML UDC GT SCH (20:43)
[2017-05-09] MEDS: ACIDOPHILUS/BULGARICUS 1 EACH TAB.CHEW GT SCH (20:44)
[2017-05-09] MEDS: MIDODRINE HCL (5MG) 5 MG TABLET GT SCH (20:45)
[2017-05-09] MEDS: METOPROLOL TARTRATE 25 MG TABLET GT SCH (20:45)
[2017-05-10] VITALS: BP 86/39
[2017-05-10] MEDS: METOCLOPRAMIDE HCL 10 MG/10 ML UDC GT SCH ×4 (00:09→17:08)
[2017-05-10] MEDS: ALBUTEROL FS 2.5 MG/0.5 ML VIAL.NEB NEB SCH ×4 (01:23→19:57)
[2017-05-10] MEDS: IPRATROPIUM NEB FS 0.5 MG/2.5 ML AMPUL.NEB NEB SCH ×4 (01:23→19:57)
[2017-05-10 04:00] VITALS: BP 88/38
[2017-05-10] MEDS: SEVELAMER CARBONATE 0.8 GM POWD.PACK GT SCH ×3 (05:44→21:25)
[2017-05-10] MEDS: MIDODRINE HCL (5MG) 5 MG TABLET GT SCH ×3 (05:44→21:31)
--- NOTE | 2017-05-10 07:00 | NUR ---
RN CLOSING NOTES PATIENT RESTING IN BED, APPEARS COMFORTABLE. WILL ENDORSE THE PATIENT TO THE AM SHIFT NURSE FOR CONNOR
--- NOTE | 2017-05-10 07:10 | NUR ---
RN NOTES PT IN BED, ALERT/NON VERBAL MALAWIAN SPEAKING. VENT/TRACH DEPENDENT. SUCTIONING DONE. TOLERATING CURRENT VENT SETTING WELL. TELE SHOWS C A.FIB, HR 70'S. TUBE FEEDING NOVASOURCE AT 50 CC/HR PER GT, TOLERATING WELL, NO RESIDUALS NOTED. R CW HD CATH, CDI. IVF 1/2 NS AT 50CC/HR ON L WRIST GAUGE #18. SR UP X3, BED LOW AND LOCKED. CALL LIGHT WITHIN REACH. WILL CONT TO MONITOR.
[2017-05-10 08:00] VITALS: BP 105/48
[2017-05-10] MEDS ORDERED: RENAL NOVASOURCE 1,000 ML BOTTLE GT PRN (08:14)
[2017-05-10] MEDS: LEVETIRACETAM SOL (5 ML) 100 MG/ML UDC GT SCH ×3 (08:20→21:32)
[2017-05-10] MEDS: PANTOPRAZOLE 40 MG/PACK PACK GT SCH ×3 (08:20→17:08)
[2017-05-10] MEDS: ACIDOPHILUS/BULGARICUS 1 EACH TAB.CHEW GT SCH ×3 (08:20→21:25)
[2017-05-10] MEDS: VIT B CMPLX 3/FA/VIT C/BIOTIN 1 TAB TABLET GT SCH ×2 (08:20→10:13)
[2017-05-10] MEDS: CALCITRIOL 0.25 MCG CAPSULE GT SCH ×2 (08:20→10:13)
[2017-05-10] MEDS ORDERED: ALBUTEROL FS 2.5 MG/0.5 ML VIAL.NEB NEB PRN (08:30)
[2017-05-10] MEDS ORDERED: IPRATROPIUM NEB FS 0.5 MG/2.5 ML AMPUL.NEB NEB PRN (08:30)
[2017-05-10] MEDS: METOPROLOL TARTRATE 25 MG TABLET GT SCH (08:35)
[2017-05-10] MEDS: Z GUARD REMEDY 2 OZ OINT TP SCH (08:42)
--- NOTE | 2017-05-10 08:44 | NUR ---
RN NOTES MEDICATIONS HELD, PT HAVING HD AT THIS TIME.
[2017-05-10] MEDS: HYDROGEL DRESSING 90 GM TUBE TP SCH ×2 (09:43→10:13)
[2017-05-10 12:00] VITALS: BP 103/46
--- NOTE | 2017-05-10 12:00 | NUR ---
RN NOTES NO RESP DISTRESS NOTED. TOLERATING TF WELL. NO RESIDUALS. TURNED AND REPOSITIONED FOR COMFORT. WILL CONT TO MONITOR.
[2017-05-10] MEDS: IV 1/2NS 1000 ML 1,000 ML IV PRN (12:21)
[2017-05-10] MEDS ORDERED: DIGOXIN ELIX UDC 0.25 MG/5 ML UDC GT SCH (13:00)
[2017-05-10 16:00] VITALS: BP_SYST 90; BP_SYST 95; BP_DIAS 45
[2017-05-10] MEDS: PROSOURCE / PROSTAT (PYXIS) 30 ML UDC GT SCH (17:07)
--- NOTE | 2017-05-10 18:00 | NUR ---
RN NOTES NO RESP DISTRESS NOTED. NO CHANGES ON VENT SETTINGS. PT TOLERATING GTUBE FEEDINGS. NO RESIDUALS NOTED. ABDOMEN ROUNDED. OFTENTIMES STATED FEELING THIRSTY AND HUNGRY. NEW IV SITE ON R AC GAUGE 20, ATTEMPTED X1, PT TOLERATED PROCEDURE WELL. TURNED AND REPOSITIONED FOR COMFORT. WOUND CARE AND DRESSING CHANGES DONE ON COCCYX AND ABDOMEN. BM X2 SOFT AND BLACK. HOURLY CARES ROUNDING DONE. BED LOW AND LOCKED. CALL LIGHT WITHIN REACHED. WILL ENDORSE TO COLLET DRILLER CONNOR.
--- NOTE | 2017-05-10 19:41 | NUR ---
RN OPENING NOTE RECEIVED PATIENT IN THE BED, SLOVENIAN SPEAKING, NON-VERBAL. TRACH #8 AC 14, TV 500, FIO2 35, LEFT WRIST 18 GAUGE 1/2 NS 50 ML/HR, RIGHT CHEST WALL HD CATHETER, ADMITTED FOR GI BLEED, NO APPARENT DISTRESS, NO S/S OF PAIN OR DISTRESS NOTED, CALL LIGHT WITHIN REACH, BED IN THE LOW POSITION, SIDE RAILS UP X 2, WILL CONTINUE TO MONITOR
[2017-05-10 20:00] VITALS: BP 89/42
[2017-05-11] VITALS: BP 87/39
[2017-05-11] MEDS: METOCLOPRAMIDE HCL 10 MG/10 ML UDC GT SCH ×5 (00:19→23:40)
[2017-05-11] MEDS: IPRATROPIUM NEB FS 0.5 MG/2.5 ML AMPUL.NEB NEB SCH ×4 (01:52→20:08)
[2017-05-11] MEDS: ALBUTEROL FS 2.5 MG/0.5 ML VIAL.NEB NEB SCH ×4 (01:52→20:08)
[2017-05-11 04:00] VITALS: BP 102/50
[2017-05-11] MEDS: MIDODRINE HCL (5MG) 5 MG TABLET GT SCH ×3 (05:50→21:04)
[2017-05-11] MEDS: SEVELAMER CARBONATE 0.8 GM POWD.PACK GT SCH ×3 (05:50→21:04)
--- NOTE | 2017-05-11 06:58 | NUR ---
PATIENT IS AWAKE, SLEPT WELL DURING THE NIGHT, NO SIGNIFICANT CHANGES DURING THE SHIFT, AFEBRILE, NPO SINCE MIDNIGHT, CONSENTS SIGNED, BED IN THE LOW POSITION, SIDE RAILS UP X 2, CALL LIGHT WITHIN REACH, BED IN THE LOW POSITION
--- NOTE | 2017-05-11 07:15 | NUR ---
RN INITIAL NOTES: REC'D PT ON BED, NOT IN ANY DISTRESS, AWAKE, ABLE TO MAKE NEEDS KNOWN. ON MECH VENT VIA TRACH, SATURATING AT 100%. ON TELEMONITOR, A.FIB W/ BBB. HAS R AC G20 PL, PATENT & INTACT W/ NO S/SX OF INFECTION/INFILTRATION NOTED, HAS 1/2 NS X 50 CC/HR INFUSING WELL. HAS R CW HD CATH IN PLACE. HAS PEG PATENT & INTACT, CLAMPED AT THIS TIME D/T SCHEDULED EGD PROCEDURE. PROVIDED COMFORT & SAFETY MEASURES. BED KEPT LOW & IN LOCKED POS. CALL LIGHT PLACED W/IN REACH. WILL CONTINUE TO MONITOR/ ATTEND PT NEEDS.
[2017-05-11 08:00] VITALS: BP_SYST 84; BP_SYST 92; BP_DIAS 34; BP_DIAS 45
--- NOTE | 2017-05-11 08:30 | NUR ---
RN NOTES: S/P EGD PROCEDURE AT BEDSIDE C/O DR. YOON. PT TOLERATED WELL. NOTED DR. YOON'S ORDERS.
[2017-05-11] MEDS: VIT B CMPLX 3/FA/VIT C/BIOTIN 1 TAB TABLET GT SCH (09:16)
[2017-05-11] MEDS: ACIDOPHILUS/BULGARICUS 1 EACH TAB.CHEW GT SCH ×2 (09:16→21:04)
[2017-05-11] MEDS: CALCITRIOL 0.25 MCG CAPSULE GT SCH (09:16)
[2017-05-11] MEDS: PANTOPRAZOLE 40 MG/PACK PACK GT SCH (09:16)
[2017-05-11] MEDS: LEVETIRACETAM SOL (5 ML) 100 MG/ML UDC GT SCH ×2 (09:16→21:03)
[2017-05-11] MEDS: Z GUARD REMEDY 2 OZ OINT TP SCH (09:16)
[2017-05-11] MEDS ORDERED: RENAL NOVASOURCE 1,000 ML BOTTLE GT PRN (11:30)
[2017-05-11 12:00] VITALS: BP 87/41
--- NOTE | 2017-05-11 12:48 | NUR ---
RN NOTES: PER KELLIE SIBLEY TO DC CURRENT IVF.
[2017-05-11 16:00] VITALS: BP 94/36
[2017-05-11] MEDS: PROSOURCE / PROSTAT (PYXIS) 30 ML UDC GT SCH (17:03)
--- NOTE | 2017-05-11 18:54 | NUR ---
RN CLOSING NOTES: NO ACUTE CHANGES NOTED W/IN SHIFT. PT TOLERATED MECH VENT VIA TRACH, SATURATING AT 100%. ON TELEMONITOR, STILL A.FIB W/ BBB CONTROLLED. R AC G20 SL, KEPT PATENT & INTACT W/ NO S/SX OF INFECTION/INFILTRATION NOTED. R CW HD CATH KEPT IN PLACE. PEG KEPT PATENT & INTACT, TOLERATED NOVASOURCE AT 50 CC/HR, NO RESIDUAL NOTED W/IN SHIFT. KEPT WELL RESTED. NEEDS ATTENDED. BED KEPT LOW & IN LOCKED POS. CALL LIGHT PLACED W/IN REACH. WILL ENDORSE TO PM RN FOR CONNOR.
--- NOTE | 2017-05-11 19:15 | NUR ---
ROPE SILICA MACHINE OPERATOR OPENING NOTES RECEIVED REPORT AND PATIENT FROM DAY SHIFT. PATIENT IS STABLE. NO SIGNS OF SOB AT THIS TIME. ON MECHANICAL VENT WITH CURRENT SETTINGS. ON GT FEEDING WITH HOB ELEVATED AT 30 DEGREES. SAFETY MEASURES PROVIDED. CALL LIGHT WITHIN REACH.
[2017-05-11 20:00] VITALS: BP 100/49
[2017-05-11] MEDS ORDERED: diphenhydrAMINE HCL 25 MG CAPSULE ONE (21:16)
--- NOTE | 2017-05-11 21:19 | NUR ---
RN NOTE SPOKE WITH DR ARMAS ABOUT PT C/O GENERALIZED ITCHING AND RECEIVED ORDER FOR BENADRYL 25MG Q6H PRN FOR ITCHING. READBACK ORDER PERFORMED.
[2017-05-11] MEDS ORDERED: diphenhydrAMINE HCL 25 MG CAPSULE PO PRN (21:30)
[2017-05-11] MEDS ORDERED: hydrOXYzine 10 MG TABLET ONE (23:22)
--- NOTE | 2017-05-11 23:30 | NUR ---
RN NOTE NOTIFIED DR ARMAS THAT PT STILL C/O GENERALIZED ITCHING AND FAMILY REQUESTING THAT PT RECEIVED WHAT SHE WAS GETTING AT FACILITY WHICH IS VISTARIL 25MG Q6H PRN FOR ITCHING. READBACK ORDER PERFORMED.
[2017-05-11] MEDS ORDERED: hydrOXYzine PAMOATE 25 MG CAPSULE ONE (23:31)
[2017-05-11] MEDS: hydrOXYzine PAMOATE 25 MG CAPSULE PO PRN (23:38)
[2017-05-12] VITALS (8 sets, daily range): BP systolic 82–102; BP diastolic 31–59
--- NOTE | 2017-05-12 01:00 | NUR ---
RN NOTE PT NOT C/O ITCHING CURRENTLY. WILL CONTINUE TO MONITOR.
[2017-05-12] MEDS: IPRATROPIUM NEB FS 0.5 MG/2.5 ML AMPUL.NEB NEB SCH ×4 (01:04→20:19)
[2017-05-12] MEDS: ALBUTEROL FS 2.5 MG/0.5 ML VIAL.NEB NEB SCH ×4 (01:04→20:19)
[2017-05-12] MEDS: MIDODRINE HCL (5MG) 5 MG TABLET GT SCH ×3 (04:36→20:41)
[2017-05-12] MEDS: SEVELAMER CARBONATE 0.8 GM POWD.PACK GT SCH ×3 (04:36→20:40)
[2017-05-12] MEDS: METOCLOPRAMIDE HCL 10 MG/10 ML UDC GT SCH ×4 (05:04→23:09)
--- NOTE | 2017-05-12 07:10 | NUR ---
CALLED [facility] [phone] TO REPORT CRITICAL HGB, AWAITING CALL BACK.
[2017-05-12 07:16] LABS: BASOPHILS % (AUTO) 0.5 % (0.0-2.0); EOSINOPHILS # (AUTO) 0.4 /CMM (0.0-0.7); EOSINOPHILS % (AUTO) 4.7 % (0.0-6.0); LYMPHOCYTES # (AUTO) 1.7 /CMM (0.8-4.8); LYMPHOCYTES % (AUTO) 22.7 % (20.0-44.0); MEAN CORPUSCULAR HEMOGLOBIN 35 PG (26.0-33.0); MEAN CORPUSCULAR HGB CONC 33 g/dl (31.0-36.0); MEAN CORPUSCULAR VOLUME 105 fL (82-100); MONOCYTES # (AUTO) 0.7 /CMM (0.1-1.30); NEUTROPHILS # (AUTO) 4.7 /CMM (1.8-8.9); NEUTROPHILS % (AUTO) 62.1 % (43.0-81.0); PLATELET COUNT (AUTO) 177 /CMM (150-450); RDW COEFFICIENT OF VARIATION 18.8 (11.5-15.0); WHITE BLOOD COUNT (AUTO) 7.5 K/uL (4.3-11.0)
[2017-05-12 07:21] LABS: RED BLOOD CELL COUNT(AUTO) 1.89 MIL/uL (4.0-5.2)
[2017-05-12 07:30] LABS: CALCIUM, SERUM 8.6 mg/dL (8.5-10.1); CARBON DIOXIDE 28 mmol/L (21-32); CHLORIDE 102 mmol/L (98-107); CREATININE 2.9 mg/dL (0.6-1.3); GLUCOSE 121 mg/dL (74-106); PHOSPHORUS 2.5 mg/dL (2.5-4.9); SODIUM SERUM 136 mmol/L (136-145); UREA NITROGEN, BLOOD 46 mg/dL (7-18)
[2017-05-12 07:39] LABS: HEMATOCRIT 20 % (33-45); HEMOGLOBIN 6.5 g/dL (11.5-14.8)
--- NOTE | 2017-05-12 08:00 | NUR ---
PT HAS LARGE AMOUNT OF RESIDUALS: 430ML'S OF THIN LIQUID CONSISTENT IN COLOR WITH THE NOVASOURCE, BUT NOT THICK, NO BLOOD NO PINK TINGE NOTED. PLACED TF ON HOLD. WILL MONITOR RAMOUNT AND RESTART WHEN RESIDUALS DECREASE.
[2017-05-12] MEDS: LEVETIRACETAM SOL (5 ML) 100 MG/ML UDC GT SCH ×2 (08:07→20:40)
[2017-05-12] MEDS: VIT B CMPLX 3/FA/VIT C/BIOTIN 1 TAB TABLET GT SCH (08:08)
[2017-05-12] MEDS: CALCITRIOL 0.25 MCG CAPSULE GT SCH (08:08)
[2017-05-12] MEDS: ACIDOPHILUS/BULGARICUS 1 EACH TAB.CHEW GT SCH ×2 (08:08→20:40)
[2017-05-12] MEDS: PANTOPRAZOLE 40 MG/PACK PACK GT SCH (08:09)
[2017-05-12] MEDS: HYDROGEL DRESSING 90 GM TUBE TP SCH (09:19)
[2017-05-12] MEDS: Z GUARD REMEDY 2 OZ OINT TP SCH (09:19)
[2017-05-12 09:42] LABS: EOSINOPHILS % (MANUAL) 1 % (0-4); LYMPHOCYTES % (MANUAL) 27 % (16-48); MONOCYTES % (MANUAL) 8 % (0-11.0); NEUTROPHILS % (MANUAL) 64 (42-76)
--- NOTE | 2017-05-12 09:59 | NUR ---
PT STILL HAS APPROXIMATELY 360 ML OF RESIDUALS. TF STILL ON HOLD.
--- NOTE | 2017-05-12 10:56 | NUR ---
DR. MELÉNDEZ ORDERS 1 UNIT PRBC WITH HD.
--- NOTE | 2017-05-12 11:19 | NUR ---
1 UNIT TRANSFUSING WITH HEMODIALYSIS.
--- NOTE | 2017-05-12 11:52 | NUR ---
HD COMPLETE NO FLUIDS REMOVED DUE TO BLOOD PRESSURE. 1 UNIT PRBC INFUSED WITH HD.
[2017-05-12] MEDS ORDERED: DIGOXIN ELIX UDC 0.25 MG/5 ML UDC GT SCH (13:00)
[2017-05-12] MEDS ORDERED: RENAL NOVASOURCE 1,000 ML BOTTLE GT PRN (14:00)
[2017-05-12] MEDS: hydrOXYzine PAMOATE 25 MG CAPSULE PO PRN ×2 (14:41→21:20)
--- NOTE | 2017-05-12 16:54 | NUR ---
PT'S RESIDUALS SLOWLY DECREASED THROUGHOUT THE DAY, STARTED THIS AM AT 460ML. AT 1600 THE RESIDUAL IS DOWN TO 10ML WITH TF ON HOLD ALL DAY, RESTARTED THE TF AT A LOW RATE 15ML/HR AND WILL ASSESS RESIDUAL AMOUNT. WILL ENDORSE TO RESTART TF SLOWLY, NEW RATE ACCORDING TO THE NUTRITION CONSULT WHICH WAS ALSO ORDERED BY DR. MELÉNDEZ IS 40ML/HR.
[2017-05-12] MEDS: PROSOURCE / PROSTAT (PYXIS) 30 ML UDC GT SCH (17:29)
--- NOTE | 2017-05-12 19:30 | NUR ---
RN/TELE NOTES: RECEIVED PT ON BED W/ SON AT BEDSIDE TRANSLATING IN THAI. ABLE TO MAKE NEEDS KNOWN. NO FACIAL GRIMACE OR MOANING NOTED. NOT IN ANY DISTRESS. ON MECH VENT VIA TRACH, SATURATING AT 100%. ON TELEMONITOR, CLARE HAS R AC G20 SL PATENT & INTACT W/ NO S/SX OF INFECTION/INFILTRATION NOTED. HAS R CW HD CATH IN PLACE. HAS PEG PATENT & INTACT W/ 25 ML OF RESIDUAL NOTED. PROVIDED COMFORT & SAFETY MEASURES. BED KEPT LOW & IN LOCKED POSITION. CALL LIGHT PLACED W/IN REACH. WILL CONTINUE TO MONITOR/ ATTEND PT NEEDS.
[2017-05-13] VITALS: BP 81/36
[2017-05-13] MEDS: ALBUTEROL FS 2.5 MG/0.5 ML VIAL.NEB NEB SCH ×4 (02:05→19:53)
[2017-05-13] MEDS: IPRATROPIUM NEB FS 0.5 MG/2.5 ML AMPUL.NEB NEB SCH ×4 (02:05→19:53)
[2017-05-13 04:00] VITALS: BP_SYST 81; BP_SYST 82; BP_DIAS 30; BP_DIAS 31
[2017-05-13] MEDS: MIDODRINE HCL (5MG) 5 MG TABLET GT SCH ×3 (05:16→18:06)
[2017-05-13] MEDS: SEVELAMER CARBONATE 0.8 GM POWD.PACK GT SCH ×3 (05:16→20:50)
[2017-05-13] MEDS: METOCLOPRAMIDE HCL 10 MG/10 ML UDC GT SCH ×3 (05:24→17:48)
--- NOTE | 2017-05-13 06:59 | NUR ---
RN/TELE NOTES: PT. IN BED SLEEPING W/ RESPIRATIONS EVEN AND UNLABORED. NO S/S OF RESPIRATORY DISTRESS. NO FACIAL GRIMACES OR MOANING NOTED. REPORT GIVEN TO NEXT SHIFT NURSE FOR CONTINUE OF CARE.
--- NOTE | 2017-05-13 07:20 | NUR ---
COOK VEGETABLE NOTES RECEIVED PT IN BED AWAKE. ALERT ORIENTED X2. ON TELE MONITOR AFIB. [facility] TOLERATING WELL. IV ACCESS ON RIGHT ARM AC #20, NO SIGN OF REDNESS OR INFECTION. HEAD OF BED ELEVATED. SIDE RAILS UP. BED IN LOW POSITION. BED ALARM ON. CALL LIGHT WITHIN REACH. WILL CONTINUE TO MONITOR PATIENT CLOSELY.
[2017-05-13 07:55] LABS: BASOPHILS # (AUTO) 0.1 /CMM (0.0-0.2); BASOPHILS % (AUTO) 0.8 % (0.0-2.0); EOSINOPHILS # (AUTO) 0.4 /CMM (0.0-0.7); EOSINOPHILS % (AUTO) 5.7 % (0.0-6.0); HEMATOCRIT 22 % (33-45); HEMOGLOBIN 7.5 g/dL (11.5-14.8); LYMPHOCYTES # (AUTO) 1.8 /CMM (0.8-4.8); LYMPHOCYTES % (AUTO) 23.2 % (20.0-44.0); MEAN CORPUSCULAR HEMOGLOBIN 35 PG (26.0-33.0); MEAN CORPUSCULAR HGB CONC 34 g/dl (31.0-36.0); MEAN CORPUSCULAR VOLUME 103 fL (82-100); MONOCYTES # (AUTO) 0.8 /CMM (0.1-1.30); MONOCYTES % (AUTO) 10.9 % (2.0-12.0); NEUTROPHILS # (AUTO) 4.6 /CMM (1.8-8.9); NEUTROPHILS % (AUTO) 59.4 % (43.0-81.0); PLATELET COUNT (AUTO) 166 /CMM (150-450); RDW COEFFICIENT OF VARIATION 19.2 (11.5-15.0); RED BLOOD CELL COUNT(AUTO) 2.14 MIL/uL (4.0-5.2); WHITE BLOOD COUNT (AUTO) 7.7 K/uL (4.3-11.0)
[2017-05-13 08:00] VITALS: BP_SYST 88; BP_SYST 90; BP_DIAS 26; BP_DIAS 40
[2017-05-13 08:21] LABS: CALCIUM, SERUM 8.4 mg/dL (8.5-10.1); CARBON DIOXIDE 28 mmol/L (21-32); CHLORIDE 100 mmol/L (98-107); CREATININE 2.6 mg/dL (0.6-1.3); GLUCOSE 104 mg/dL (74-106); PHOSPHORUS 2.3 mg/dL (2.5-4.9); SODIUM SERUM 136 mmol/L (136-145); UREA NITROGEN, BLOOD 41 mg/dL (7-18)
[2017-05-13] MEDS: Z GUARD REMEDY 2 OZ OINT TP SCH (08:45)
[2017-05-13] MEDS: HYDROGEL DRESSING 90 GM TUBE TP SCH (08:45)
[2017-05-13] MEDS: VIT B CMPLX 3/FA/VIT C/BIOTIN 1 TAB TABLET GT SCH (08:46)
[2017-05-13] MEDS: LEVETIRACETAM SOL (5 ML) 100 MG/ML UDC GT SCH ×2 (08:46→20:50)
[2017-05-13] MEDS: CALCITRIOL 0.25 MCG CAPSULE GT SCH (08:46)
[2017-05-13] MEDS: PANTOPRAZOLE 40 MG/PACK PACK GT SCH (08:46)
[2017-05-13] MEDS: ACIDOPHILUS/BULGARICUS 1 EACH TAB.CHEW GT SCH ×2 (08:46→20:55)
[2017-05-13] MEDS: hydrOXYzine PAMOATE 25 MG CAPSULE PO PRN ×2 (08:52→15:17)
--- NOTE | 2017-05-13 09:17 | NUR ---
DIRECTOR CLINICAL RESEARCH NOTES PT KEEPS SCRATCHING HER ARMS. VISTARIL PRN WAS GIVEN.
[2017-05-13 12:00] VITALS: BP 91/39
[2017-05-13] MEDS ORDERED: NEUTRA PHOS 1 POWD.PACKET GT ONE (14:00)
[2017-05-13 16:00] VITALS: BP 85/35
--- NOTE | 2017-05-13 17:42 | NUR ---
GEOGRAPHIC INFORMATION SYSTEMS MANAGER NOTE EMT REFUSED TO TRANSFER PT TO SNF DUE TO LOW BP. CONTACTED DR. MELÉNDEZ FOR THE PATIENTS LOW BLOOD PRESSURE.
[2017-05-13] MEDS: PROSOURCE / PROSTAT (PYXIS) 30 ML UDC GT SCH (17:48)
--- NOTE | 2017-05-13 18:11 | NUR ---
AT RISK SPECIALIST NOTES MIDODRINE GIVEN [address] MELÉNDEZ TO INCREASE BLOOD PRESSURE.
--- NOTE | 2017-05-13 18:52 | NUR ---
HAT LINER NOTE NO SIGNIFICANT CHANGES ON PT CONDITION DURING SHIFT. ON [facility] VENT SETTING TOLERATING WELL. IV ACCESS RIGHT ARM #20 NO SIGNS OF REDNESS OR INFECTION NOTED. WOUND CARE DONE. DUE MEDS GIVEN. HEAD OF BED KEPT ELEVATED. SIDE RAILS UP. CALL LIGHT WITHIN REACH. DUE MEDS GIVEN. ENDORSED TO THE PM NURSE.
[2017-05-13 20:00] VITALS: BP 89/30
[2017-05-13] MEDS ORDERED: IV NS 0.9% 250 ML IV ONE (20:30)
--- NOTE | 2017-05-13 22:21 | NUR ---
RN NOTES RECEIVED PATIENT AWAKE IN BED WITH NO DISTRESS NOTED. BREATHING EVEN AND UNLABORED. NO PHYSICAL MANIFESTATION OF PAIN OR DISCOMFORT. ALERT AND RESPONSIVE. NON VERBAL. VITAL SIGNS WNL. VENT SETTING WELL TOLERATED. HOB ELEVATED. PEG TUBE INTACT, FEEDING WELL TOLERATED. FOR TRANSFER TO SNF AT 2200. CONTINUE TO MONITOR. KEPT CLEAN AND DRY.
--- NOTE | 2017-05-13 22:22 | NUR ---
RN CLOSING NOTES PATIENT AWAKE IN BED. NO DISTRESS NOTED. BREATHING EVEN AND UNLABORED. MEDS FOR 2100 GIVEN. BOLUS 250ML NS ADMINISTERED. VITAL SIGNS WNL WITH BP 101/40. NO PHYSICAL MANIFESTATION OF PAIN OR DISCOMFORT. AMBULANCE CAME AT 2200, TRANSFERED TO [facility] COMFORTABLY BY 3 [employer] WINDOWS ENGINEER. PEG TUBE AND RAC LINE PATENT AND INTACT.
== END 2017-05-13 22:05 | DRG 981 ==
LOC: ER 12:38 → TELE-TD 14:21 → TELE1 19:14 → TELE-TD 05-07 18:06 → TELE1 05-08 10:04
PROVIDERS: ADMIT Internal Medicine Nephrology; ATTEND Internal Medicine Nephrology
PROC: 5A1955Z Respiratory Ventilation, Greater than 96 Consecutive Hours (ICD-10-PCS; principal; 2017-05-06)
PROC: 0W9G3ZZ Drainage of Peritoneal Cavity, Percutaneous Approach (ICD-10-PCS; 2017-05-06)
PROC: 30233N1 Transfusion of Nonautologous Red Blood Cells into Peripheral Vein, Percutaneous Approach (ICD-10-PCS; 2017-05-06)
PROC: 5A1D70Z Performance of Urinary Filtration, Intermittent, Less than 6 Hours Per Day (ICD-10-PCS; 2017-05-07)
PROC: 0KBP0ZZ Excision of Left Hip Muscle, Open Approach (ICD-10-PCS; 2017-05-09)
PROC: 0KBN0ZZ Excision of Right Hip Muscle, Open Approach (ICD-10-PCS; 2017-05-11)
PROC: 0DB68ZX Excision of Stomach, Via Natural or Artificial Opening Endoscopic, Diagnostic (ICD-10-PCS; 2017-05-11)
DX: K29.71 Gastritis, unspecified, with bleeding (principal); G93.40 Encephalopathy, unspecified; E43 Unspecified severe protein-calorie malnutrition; J90 Pleural effusion, not elsewhere classified; Z99.11 Dependence on respirator [ventilator] status; L89.154 Pressure ulcer of sacral region, stage 4; J96.11 Chronic respiratory failure with hypoxia; Z93.0 Tracheostomy status; N18.6 End stage renal disease; I12.0 Hypertensive chronic kidney disease with stage 5 chronic kidney disease or end stage renal disease; R18.8 Other ascites; D62 Acute posthemorrhagic anemia; Z68.1 Body mass index [BMI] 19.9 or less, adult; E11.22 Type 2 diabetes mellitus with diabetic chronic kidney disease; I27.20 Pulmonary hypertension, unspecified; Z99.2 Dependence on renal dialysis; D50.0 Iron deficiency anemia secondary to blood loss (chronic); D63.1 Anemia in chronic kidney disease; E78.5 Hyperlipidemia, unspecified; G40.909 Epilepsy, unspecified, not intractable, without status epilepticus; Z90.49 Acquired absence of other specified parts of digestive tract; Z86.73 Personal history of transient ischemic attack (TIA), and cerebral infarction without residual deficits; Z66 Do not resuscitate; Z88.0 Allergy status to penicillin; Z88.2 Allergy status to sulfonamides; K72.90 Hepatic failure, unspecified without coma; K74.69 Other cirrhosis of liver; K21.9 Gastro-esophageal reflux disease without esophagitis; I48.2 Chronic atrial fibrillation; E88.09 Other disorders of plasma-protein metabolism, not elsewhere classified; D53.9 Nutritional anemia, unspecified; I51.3 Intracardiac thrombosis, not elsewhere classified; Z79.899 Other long term (current) drug therapy; K94.29 Other complications of gastrostomy; Y73.8 Miscellaneous gastroenterology and urology devices associated with adverse incidents, not elsewhere classified; Y92.129 Unspecified place in nursing home as the place of occurrence of the external cause; Y83.3 Surgical operation with formation of external stoma as the cause of abnormal reaction of the patient, or of later complication, without mention of misadventure at the time of the procedure; K57.30 Diverticulosis of large intestine without perforation or abscess without bleeding
CPT/HCPCS: 31720; 36415; 71010-TC; 76942-TC; 80048-TC; 80076-TC; 80162-TC; 82272-TC; 82728-TC; 83540-TC; 83690-TC; 83735-TC; 84100-TC; 84484-TC; 85025-TC; 85730-TC; 86850-TC; 86921-TC; 87081-TC; 88305-TC; 88313-TC; 88342; 90935-TC; 93307-TC; 94002-TC; 94003-TC; 94760-TC; 94762-TC; A4606; A4623; A6248; A6253; A6402; A7526; C9113; J1160; J1953; J3490; J7040; J7042; J7050; J8597; P9016-BL; Q0163; Q0177; Q9967; Z7610

== ENCOUNTER 2017-05-22 20:03 | Inpatient (IN) | payer OTHER, MEDICARE ==
[~2017-05-22] VITALS: Ht 152.4 cm; Wt 68.9 kg
[~2017-05-22 20:03] MED LIST changes: +AMIN30LI4 GT; -BUME1TAB4 GT
--- NOTE | 2017-05-22 20:07 | NUR ---
PT TO ER BED 7. PT BIB RA FROM SNF, PER EMS VOMITED COFFEE GROUND EMESIS X 1 AT 1500 TODAY. PT HAS A TRACH WITH VENT. PT PLACED IN GOWN AND ON OPTOMETRIC ASSISTANT. VSS/RESP EVEN UNLABORED/NAD NOTED/SKIN WARM AND DRY/AOX4. AWAITING MD MUÑOZ.
--- NOTE | 2017-05-22 20:10 | NUR ---
20G IV TO L FA X 1 ATTEMPT USING ASEPTIC TECH, BLOOD SENT TO THE LAB. IV FLUSHES EASILY WITH NS.
[2017-05-22 20:15] VITALS: BP 110/43
--- NOTE | 2017-05-22 20:20 | NUR ---
AT BEDSIDE FOR EVAL. GUAIC TEST PERFORMED AT BEDSIDE BY , TEST +.
[2017-05-22] MEDS ORDERED: PANTOPRAZOLE 80 MG in IV NS 0.9% 500 ML IV ONE (20:30)
[2017-05-22] MEDS ORDERED: PANTOPRAZOLE 80 MG in IV NS 0.9% 100 ML IV ONE (20:30)
[2017-05-22] MEDS ORDERED: IV NS 0.9% 500 ML BAG IV ONE (20:30)
[2017-05-22] MEDS ORDERED: PANTOPRAZOLE 40 MG VIAL ONE (20:33)
[2017-05-22 20:34] LABS: BASOPHILS # (AUTO) 0.1 /CMM (0.0-0.2); EOSINOPHILS # (AUTO) 0.2 /CMM (0.0-0.7); EOSINOPHILS % (AUTO) 2.6 % (0.0-6.0); LYMPHOCYTES # (AUTO) 2.1 /CMM (0.8-4.8); MEAN CORPUSCULAR HEMOGLOBIN 36 PG (26.0-33.0); MEAN CORPUSCULAR HGB CONC 34 g/dl (31.0-36.0); MEAN CORPUSCULAR VOLUME 104 fL (82-100); MONOCYTES # (AUTO) 0.7 /CMM (0.1-1.30); MONOCYTES % (AUTO) 9.1 % (2.0-12.0); NEUTROPHILS # (AUTO) 4.8 /CMM (1.8-8.9); NEUTROPHILS % (AUTO) 61.3 % (43.0-81.0); PLATELET COUNT (AUTO) 217 /CMM (150-450); RDW COEFFICIENT OF VARIATION 17.6 (11.5-15.0); RED BLOOD CELL COUNT(AUTO) 1.83 MIL/uL (4.0-5.2); WHITE BLOOD COUNT (AUTO) 7.9 K/uL (4.3-11.0)
[2017-05-22 20:35] LABS: HEMATOCRIT 19 % (33-45); HEMOGLOBIN 6.5 g/dL (11.5-14.8)
[2017-05-22 20:45] LABS: CALCIUM, SERUM 8.6 mg/dL (8.5-10.1); CARBON DIOXIDE 28 mmol/L (21-32); CHLORIDE 100 mmol/L (98-107); CREATININE 1.2 mg/dL (0.6-1.3); GLUCOSE 126 mg/dL (74-106); POTASSIUM 3.2 mmol/L (3.5-5.1); SODIUM SERUM 132 mmol/L (136-145); UREA NITROGEN, BLOOD 40 mg/dL (7-18)
--- NOTE | 2017-05-22 20:51 | NUR ---
ALL MEDICATIONS GIVEN ORDERED BY THE ED PHYSCIAN - SEE EMAR
--- NOTE | 2017-05-22 20:51 | NUR ---
PATIENT'S DAUGHTER AT BEDSIDE
[2017-05-22 20:57] LABS: ALANINE AMINOTRANSFERASE 13 U/L (12-78); ALKALINE PHOSPHATASE 294 U/L (46-116); ASPARTATE AMINOTRANSFERASE 22 U/L (15-37); BILIRUBIN,DIRECT 0.2 mg/dL (0.0-0.2); BILIRUBIN,TOTAL 0.5 mg/dL (0.2-1.0); LIPASE 197 U/L (73-393); TOTAL PROTEIN, SERUM 6.5 g/dL (6.4-8.2)
[2017-05-22 20:59] LABS: INR 1.06 (0.87-1.13)
--- NOTE | 2017-05-22 21:55 | NUR ---
ADMIT TO THE ICU, CONTINUE PLAN OF CARE.
--- NOTE | 2017-05-22 22:06 | NUR ---
PT TRANSPORTED TO ICU 263 VIA STRETCHER WITH RN AND RT, PER ACLS PROTOCOL. Dwight CORDOVA TTO GIVE REPORT TO RECEIVING NURSE AT BEDSIDE.
[2017-05-22 22:20] VITALS: BP 110/41
--- NOTE | 2017-05-22 22:30 | NUR ---
ICU/NETWORK DESKTOP SUPPORT SPECIALIST RECEIVED PT FROM ER FOR GI BLEED, BEDSIDE REPORT WAS RECEIVED FROM DEVEN. PT PLACED ON MONITOR SATIATION IS 98% , ON VENT THICK SECRETIONS. PT IS CONFUSED, PULLING AT LINES. PT HAS G/TUBE THAT WAS FLUSHED, BRIGHT RED BLOOD WAS PULLED BACK. ALSO PT WAS CHANGED WITH LOSE BLACK/RED LIQUID STOOL. PT HAS ORDER TO TRANSFUSE 2 UNITS PRBC. PT HAS A FEW SKIN ISSUES THAT ARE ADDRESSED ON THE FLOW SHEET. PT IS NPO. PT TURNED AND REPOSITION FOR COMFORT AND CARE. PT IS ALSO HD PT WITH RIGHT CHEST WALL HD CATH, HD ON MWF.
[2017-05-22 23:00] VITALS: BP 111/42
[2017-05-22] MEDS ORDERED: IPRATROPIUM NEB FS 0.5 MG/2.5 ML AMPUL.NEB NEB PRN (23:00)
[2017-05-22] MEDS ORDERED: DEXTROSE 50%-WATER 50 ML DISP.SYRIN IV PRN (23:00)
[2017-05-22] MEDS ORDERED: ALBUTEROL FS 2.5 MG/3 ML VIAL.NEB NEB PRN (23:00)
[2017-05-22] MEDS ORDERED: ACETAMINOPHEN 650 MG/20.3 ML UDC GT PRN (23:00)
--- NOTE | 2017-05-22 23:10 | NUR ---
ICU/COMMUNITY THEATER ACTOR PT HAS PROTONIX DRIP GOING THAT CAME UP WITH PT FROM ER FOR GI BLEED. THERE WAS ALSO AND ORDER FOR PROTONIX IVP, HOWEVER THIS WAS NOT GIVEN DUE TO THE DRIP GOING. CHARGE NURSE AWARE OF THIS.
[2017-05-22 23:52] VITALS: BP 111/42
[2017-05-23] VITALS (66 sets, daily range): BP systolic 74–126; BP diastolic 30–64
[2017-05-23] MEDS ORDERED: PANTOPRAZOLE 40 MG VIAL IV SCH
--- NOTE | 2017-05-23 00:05 | NUR ---
ICU/PROCESS TRAINER ACCU CHECK WAS DONE, BLOOD SUGAR WAS 117. THERE IS NO COVERAGE FOR THIS PER MD ORDERS. WILL CONTINUE TO MONITOR THE BLOOD SUGAR. PT WAS THEN TURNED AND REPOSITION FOR COMFORT AND CARE.
[2017-05-23] MEDS: BLOOD SUGAR DIAGNOSTIC 1 EACH STRIP IN SCH ×4 (00:34→17:38)
[2017-05-23] MEDS: IV D5/0.45 NACL 1,000 ML IV PRN (00:36)
--- NOTE | 2017-05-23 02:10 | NUR ---
ICU/AGRICULTURAL PRODUCE COMMISSION AGENT FIRST OF 2 UNITS OF PRBC WAS STARTED DUE TO H/H OF 6.9/19. PT HAS ACTIVE BLEED IN G/TUBE AND RECTAL BLEEDING.WILL CONTINUE TO MONITOR THIS PT.
--- NOTE | 2017-05-23 04:30 | NUR ---
ICU/FRONT DESK AUXILIARY FIRST UNIT OF PRBC COMPLETED, NOW SECOND UNIT OF PRBC STATED. PT TOLERATED THIS WELL. NO ACUTE RESP. DISTRESS SEEN. PT WAS CLEANED FROM BLOODY STOOL, ACTIVE BLEED. WILL CONTINUE TO MONITOR THIS PT.
--- NOTE | 2017-05-23 06:25 | NUR ---
ICU/CONTENT WRITER ACCU CHECK WAS DONE, BLOOD SUGAR WAS 119. THERE IS NO COVERAGE FOR THIS PER MD ORDERS. WILL CONTINUE TO MONITOR THE BLOOD SUGAR. PT WAS THEN TURNED AND REPOSITION FOR COMFORT AND CARE.
--- NOTE | 2017-05-23 06:40 | NUR ---
ICU/RESIDENTIAL SUPERVISOR LAST OF SECOND UNIT PRBC WAS DONE THEN CLEANED PT UP, PT HAD BLOODY STOOL BM. PT TOLERATED THIS WELL. PT WAS THEN TURNED AND REPOSITION FOR COMFORT AND CARE.
--- NOTE | 2017-05-23 07:10 | NUR ---
ICU/SPONGE HOOKER GAVE REPORT TO DAY NURSE, MADE AWARE OF AM LABS TO BE DONE. GI CONSULT NEEDED FOR THIS PT. WELL WOUND CONSULT.
[2017-05-23 08:24] LABS: CALCIUM, SERUM 8.2 mg/dL (8.5-10.1); CARBON DIOXIDE 23 mmol/L (21-32); CHLORIDE 103 mmol/L (98-107); CREATININE 1.4 mg/dL (0.6-1.3); GLUCOSE 125 mg/dL (74-106); MAGNESIUM 1.9 mg/dL (1.8-2.4); PHOSPHORUS 1.6 mg/dL (2.5-4.9); POTASSIUM 3.3 mmol/L (3.5-5.1); SODIUM SERUM 135 mmol/L (136-145); UREA NITROGEN, BLOOD 54 mg/dL (7-18)
[2017-05-23 08:29] LABS: BASOPHILS % (AUTO) 0.6 % (0.0-2.0); EOSINOPHILS # (AUTO) 0.1 /CMM (0.0-0.7); EOSINOPHILS % (AUTO) 1.1 % (0.0-6.0); HEMATOCRIT 22 % (33-45); HEMOGLOBIN 7.1 g/dL (11.5-14.8); LYMPHOCYTES # (AUTO) 1.9 /CMM (0.8-4.8); LYMPHOCYTES % (AUTO) 24.9 % (20.0-44.0); MEAN CORPUSCULAR HEMOGLOBIN 33 PG (26.0-33.0); MEAN CORPUSCULAR HGB CONC 33 g/dl (31.0-36.0); MEAN CORPUSCULAR VOLUME 98 fL (82-100); MONOCYTES # (AUTO) 0.9 /CMM (0.1-1.30); MONOCYTES % (AUTO) 11.7 % (2.0-12.0); NEUTROPHILS # (AUTO) 4.7 /CMM (1.8-8.9); NEUTROPHILS % (AUTO) 61.7 % (43.0-81.0); PLATELET COUNT (AUTO) 159 /CMM (150-450); RDW COEFFICIENT OF VARIATION 22.8 (11.5-15.0); RED BLOOD CELL COUNT(AUTO) 2.19 MIL/uL (4.0-5.2); WHITE BLOOD COUNT (AUTO) 7.5 K/uL (4.3-11.0)
[2017-05-23] MEDS: PANTOPRAZOLE 40 MG VIAL IV SCH ×2 (08:45→20:25)
[2017-05-23] MEDS ORDERED: POTASSIUM CL. PREMIX PERIPHER. 50 ML IV SCH (10:39)
--- NOTE | 2017-05-23 11:01 | NUR ---
[facility] MATTRESS PLACED
--- NOTE | 2017-05-23 11:34 | NUR ---
DR ARMAS ON THE UNIT REPORTED TO HER ABOUT DARK WATERY STOOLS AND DARK RED LIQUID ASPIRATED FROM THE GTUBE SITE. SHE STATES SHE WILL CONTACT GI. ASKED IF THERE WILL BE HD FOR THE PATIENT, SHE STATES NOT TODAY, SO I REPORTED POSTASSIUM LEVEL 3.3 AND PHOS LEVEL AT 1.6, SHE STATES SHE WILL INPUT ORDERS FOR REPLACEMENT. ASKED IF HGB 7.1 IS OKAY SHE ACKNOWLEDGES AND NO ORDERS FOR TRANSFUSIONS.
[2017-05-23] MEDS: INSULIN REGULAR, HUMAN 100 UNIT/ML 3 ML VIAL SQ PRN (12:38)
[2017-05-23] MEDS: LEVETIRACETAM (500MG) 500 MG in IV NS 0.9% 100 ML IV SCH (12:40)
[2017-05-23] MEDS: POTASSIUM PHOSPHATE MM 5 MMOL in IV D5W 100 ML IV SCH ×2 (12:40→14:25)
--- NOTE | 2017-05-23 13:01 | NUR ---
CLARIFIED WITH DR. ARMAS SHE ORDERS TO REPLACE KPHOS NO POTASSIUM IVPB, SHE ALSO ORDERS FOR HEMOGLOBIN AND HEMATOCRIT Q6HRS FIRST CHECK NOW, AND TO TRANSFUSE 1 UNIT IF HGB LESS THAN 7, CALL IF HGB LESS THAN 6.
--- NOTE | 2017-05-23 13:30 | NUR ---
PT ITCHY AND SCRATCHING CONSTANTLY, I APPLIED LOTION TO ITCHY AREAS WHICH ALLEVIATES IT BUT ONLY FOR A WHILE. CALLED DR. ARMAS WHO ORDERS PRN BENADRYL Q6HRS, ALSO NOTIFIED HER OF HGB 6.0 AND THAT I WILL GIVE 1 UNIT PRBC ACCORDING TO HER STANDING ORDER FROM THIS MORNING. SHE ACKNOWLEDGES AND AGREES.
[2017-05-23] MEDS: ONDANSETRON HCL/PF 4 MG/2 ML VIAL IV PRN (13:47)
--- NOTE | 2017-05-23 16:30 | NUR ---
1 UNIT PRBC INFUSED. NEXT H/H DRAW AT 1900. WILL ENDORSE DR. ARMAS'S STANDING ORDERS OF BLOOD TRANSFUSIONS TO PM SHIFT.
--- NOTE | 2017-05-23 19:30 | NUR ---
HOSPITAL PHARMACIST RCD PT AWAKE; ABLE TO FOLLOW SIMPLE COMMANDS. AFIB ON MONITOR. PORTEX 8 W/VENT SETTINGS AC 14 500 35%+5. PT HAS THICK WHITE SECRETIONS. PT NOTED TO BE SCRATCHING ALL OVER. WILL GIVE BENADRYL PRN. PT NPO AT THIS TIME. HH PENDING WITH STANDING BLOOD TRANSFUSION ORDERS.
--- NOTE | 2017-05-23 20:36 | NUR ---
BROKE BEATER OPERATOR 6.6; PER STANDING ORDER TRANSFUSE ONE UNIT PRBC.
[2017-05-23 20:37] LABS: HEMOGLOBIN 6.6 g/dL (11.5-14.8)
--- NOTE | 2017-05-23 22:00 | NUR ---
ENGINE HEAD REPAIRER PT WITH LARGE BLOODY STOOL; BLOOD CLOTS NOTED. CONTINUE TO MONITOR.
--- NOTE | 2017-05-23 22:39 | NUR ---
AIRLINE OPERATIONS AGENT PRBC TRANSFUSION STARTED.
[2017-05-24] VITALS (90 sets, daily range): BP systolic 72–117; BP diastolic 31–77
[2017-05-24] MEDS: BLOOD SUGAR DIAGNOSTIC 1 EACH STRIP IN SCH ×5 (00:24→23:26)
[2017-05-24] MEDS: LEVETIRACETAM (500MG) 500 MG in IV NS 0.9% 100 ML IV SCH ×3 (00:25→23:26)
--- NOTE | 2017-05-24 00:41 | NUR ---
GEOPHYSICAL PROSPECTING SURVEYOR BLOOD TRANSFUSION TOLERATED WELL; NO IMMEDIATE REACTION NOTED.
[2017-05-24] MEDS: diphenhydrAMINE HCL 50 MG/ML VIAL IV PRN (00:59)
[2017-05-24] MEDS: IV D5/0.45 NACL 1,000 ML IV PRN (02:09)
--- NOTE | 2017-05-24 04:00 | NUR ---
HANDS PARTER PT WITH LARGE BLOODY STOOL; BLOOD CLOTS NOTED. CONTINUE TO MONITOR.
[2017-05-24 05:36] LABS: BASOPHILS % (AUTO) 0.6 % (0.0-2.0); EOSINOPHILS # (AUTO) 0.1 /CMM (0.0-0.7); EOSINOPHILS % (AUTO) 1.6 % (0.0-6.0); LYMPHOCYTES % (AUTO) 25.1 % (20.0-44.0); MEAN CORPUSCULAR HEMOGLOBIN 32 PG (26.0-33.0); MEAN CORPUSCULAR HGB CONC 34 g/dl (31.0-36.0); MEAN CORPUSCULAR VOLUME 94 fL (82-100); MONOCYTES # (AUTO) 0.6 /CMM (0.1-1.30); MONOCYTES % (AUTO) 7.5 % (2.0-12.0); NEUTROPHILS # (AUTO) 5.1 /CMM (1.8-8.9); NEUTROPHILS % (AUTO) 65.2 % (43.0-81.0); PLATELET COUNT (AUTO) 121 /CMM (150-450); RDW COEFFICIENT OF VARIATION 20.7 (11.5-15.0); WHITE BLOOD COUNT (AUTO) 7.9 K/uL (4.3-11.0)
[2017-05-24 05:46] LABS: CALCIUM, SERUM 7.3 mg/dL (8.5-10.1); CARBON DIOXIDE 23 mmol/L (21-32); CHLORIDE 105 mmol/L (98-107); CREATININE 1.6 mg/dL (0.6-1.3); GLUCOSE 138 mg/dL (74-106); MAGNESIUM 1.7 mg/dL (1.8-2.4); PHOSPHORUS 3.3 mg/dL (2.5-4.9); POTASSIUM 4.2 mmol/L (3.5-5.1); SODIUM SERUM 137 mmol/L (136-145); UREA NITROGEN, BLOOD 60 mg/dL (7-18)
[2017-05-24 05:58] LABS: HEMOGLOBIN 6.3 g/dL (11.5-14.8); RED BLOOD CELL COUNT(AUTO) 1.94 MIL/uL (4.0-5.2)
[2017-05-24 05:59] LABS: HEMATOCRIT 18 % (33-45)
[2017-05-24] MEDS: INSULIN REGULAR, HUMAN 100 UNIT/ML 3 ML VIAL SQ PRN ×2 (06:20→12:03)
--- NOTE | 2017-05-24 06:30 | NUR ---
DOCUMENTATION LEAD PT WITH LARGE BLOODY STOOL; BLOOD CLOTS NOTED. CONTINUE TO MONITOR.
[2017-05-24 06:35] LABS: LYMPHOCYTES % (MANUAL) 25 % (16-48); MONOCYTES % (MANUAL) 10 % (0-11.0); NEUTROPHILS % (MANUAL) 65 (42-76)
--- NOTE | 2017-05-24 08:28 | NUR ---
PTS SBP DROPPING INTO THE HIGH 70 TO LOW 80'S PAGED VIP NEPHROLOGY FOR ORDERS BOLUS VS STRAIGHT TO PRESSORS, PT IS ESRD WITH HD, AWAITING CALL BACK
[2017-05-24] MEDS: PANTOPRAZOLE 40 MG VIAL IV SCH (08:36)
--- NOTE | 2017-05-24 09:44 | NUR ---
WOUND CARE CONSULT: PT UNSTABLE AT THIS TIME FOR SKIN ASSESSMENT. PT ON FIRST STEP MATTRESS. RECOMMEND SURGICAL CONSULT/FOLLOW UP FOR STAGE 4 SACRAL ULCER,PRESENT ON ADMISSION. ALL SKIN PROTECTION RECOMMENDATIONS DISCUSSED WITH NURSING STAFF. WILL SEE PT PT CONDITION PERMITS. MD IN AGREEMENT WITH PLAN OF CARE. CURRENT DENISE SCORE IS 8. Addendum: 05/24/17 at 0948 by ALONSO GARZA WNDNU WOUND RECOMMENDATIONS MADE BASED ON PHOTO AND NURSING DOCUMENTATION. DISCUSSED WITH NURSING STAFF.
[2017-05-24] MEDS ORDERED: HYDROGEL DRESSING 90 GM TUBE TP PRN (10:00)
--- NOTE | 2017-05-24 10:08 | NUR ---
1 UNIT PRBC INFUSED. NEXT H/H ASSESSMENT AT 1200. AWAITING FOR MD TO COME IN.
[2017-05-24] MEDS: HYDROGEL DRESSING 90 GM TUBE TP SCH (10:22)
--- NOTE | 2017-05-24 12:32 | NUR ---
DR. ARMAS ON THE UNIT, SHE ORDERS TO CONTINUE TO CHECK H/H EVERY 6HRS AND TO TRANSFUSE 1 UNIT IF HGB IS LESS THAN 7. IF HGB IS LESS THAN 6 CALL . ORDERS PLACED.
[2017-05-24] MEDS: Magnesium 1GM/D5W 100ML PREMIX 100 ML IV SCH ×2 (13:04→14:03)
[2017-05-24] MEDS ORDERED: EPOETIN ALFA (10,000 UNIT) 10,000 UNIT/ML VIAL SQ ONE (14:00)
[2017-05-24 14:06] LABS: HEMOGLOBIN 6.2 g/dL (11.5-14.8)
--- NOTE | 2017-05-24 14:16 | NUR ---
1300 HGB 6.2, PER DR. ARMAS'S STANDING ORDER TRANSFUSE 1 UNIT. ORDERS PLACED.
--- NOTE | 2017-05-24 15:31 | NUR ---
SBP CONSISTENTLY IN THE 70'S STARTING LEVOPHED AT 1MCG
[2017-05-24] MEDS: NOREPINEPHRINE 16 MG in IV D5W 500 ML IV PRN (15:32)
--- NOTE | 2017-05-24 16:32 | NUR ---
PER DR. ARMAS, THE PATIENT BP NATURALLY RUNS IN THE LOW 80,S SBP IS STABLE WILL STOP LEVO AND KEEP ON STANDBY IN CASE SBP DROPS INTO THE 70'S AGAIN, PT IS RECIEVING BLOOD TRANSFUSION.
--- NOTE | 2017-05-24 17:24 | NUR ---
SHAILA VALENZUELA CALLS WITH ORDERS TO KEEP PT NPO, GET CONSENT FOR EGD TOMORROW WHICH WILL TAKE PLACE AFTERNOON SHE ALSO ORDERS TO RESTART PROTONIX DRIP. ORDERS PLACED.
[2017-05-24] MEDS ORDERED: OCTREOTIDE 50 MCG in IV NS 0.9% 50 ML IV ONE (17:30)
[2017-05-24] MEDS: OCTREOTIDE 1,250 MCG in IV NS 0.9% 247.5 ML IV PRN (18:29)
[2017-05-24] MEDS: PANTOPRAZOLE 80 MG in IV NS 0.9% 500 ML IV PRN (18:41)
--- NOTE | 2017-05-24 19:30 | NUR ---
RN INITIAL NOTES RECEIVED PT ASLEEP ON BED, EASILY AROUSABLE TO NAME, A/O X 1, NON-VERBAL, ABLE TO NOD AND SIGNAL. ON VENT, AC 14, TV 500, 35% FIO2, PEEP 0, PORTEX 8, SATURATING WELL, NO S/S OF RESP DISTRESS. CURRENTLY AFIB ON THE MONITOR, HR 80-90'S. RIGHT CHEST WALL HD CATH NOTED. RIGHT UPPER ARM PICC WITH D5 1/2 NS @ 40MLS/HR, SANDOSTATIN DRIP @ 10MLS/HR, AND PROTONIX DRIP @ 50MLS/HR, LEFT FOREARM 20G, ALL LINES FLUSHED AND PATENT, NO S/S OF INFILTRATION/INFECTION, DRESSINGS CDI. BED LOW AND LOCKED, SIDERAILS UP, CALL LIGHT WITHIN REACH, BED ALARM ON. WILL MONITOR CLOSELY
[2017-05-24 19:57] LABS: HEMOGLOBIN 6.6 g/dL (11.5-14.8)
--- NOTE | 2017-05-24 22:00 | NUR ---
RN NOTES TALKED TO NICOLAS BEST TAG AND LABEL CUTTER (GI) TO CLARIFY HER NEW ORDERS. NICOLAS LINTON WANTS TO TRANSFUSE 2 MORE UNITS OF PRBC AFTER THE 1 UNIT I AM CURRENTLY TRANSFUSING. ALSO SHE WANTS PATIENT TO GO FOR NUCLEAR MEDICINE GI BLEED BLOOD LOSS ACUTE TONIGHT. DENISSE HARVEY (SON) IS CURRENTLY AT BEDSIDE TO SIGN THE CONSENT
[2017-05-25] VITALS (91 sets, daily range): BP systolic 70–125; BP diastolic 22–72
--- NOTE | 2017-05-25 00:13 | NUR ---
RN NOTES NUCLEAR MED TECH MAKI ON THE FLOOR TO CAR SWEEPER PATIENT FOR NM GI BLEED SCAN. RT YAO AND RN (MYSELF), AND INWEAVER WILL ASSIST FOR TRANSPORT VIA ACLS PROTOCOL. CONSENT SIGNED AND CHECKED.
--- NOTE | 2017-05-25 02:22 | NUR ---
RN NOTES BROUGHT BACK THE PATIENT FROM NUCLEAR MED GI BLEED SCAN. VIA ACLS PROTOCOL. PATIENT VITALS STABLE. WILL CONTINUE TO MONITOR
--- NOTE | 2017-05-25 02:42 | NUR ---
NM:GI BLEEGING TEST WAS COMPLETED. TECH:RB,
[2017-05-25] MEDS: PANTOPRAZOLE 80 MG in IV NS 0.9% 500 ML IV PRN ×3 (04:15→22:53)
[2017-05-25] MEDS: IV D5/0.45 NACL 1,000 ML IV PRN (04:15)
--- NOTE | 2017-05-25 04:38 | NUR ---
RN NOTES WILL BRING PATIENT DOWN TO NUCLEAR MED AGAIN FOR MORE IMAGING REQUESTED BY THE RADIOLOGIST. VIA ACLS PROTOCOL WITH RT YAO AND MYSELF
--- NOTE | 2017-05-25 05:00 | NUR ---
RN NOTES PT BROUGHT BACK FROM NUCLEAR MED VIA ACLS PROTOCOL. ALL VITALS STABLE
--- NOTE | 2017-05-25 05:10 | NUR ---
RN NOTES RADIOLOGIST CALLED THE UNIT AND TALKED TO GEAR INSPECTOR WHILE PATIENT WAS IN NUCLEAR MED. PER RADIOLOGIST, CONNECT THE PATIENT'S GTUBE TO WALL LOW CONTINUOUS SUCTION BRIEFLY TO CHECK THE SUSPICION FOR BLOOD POOLING IN THE STOMACH. AFTER RUNNING GTUBE TO LOW CONTINUOUS SUCTION FOR 30MIN, 50MLS OF BRIGHT RED BLOOD WAS SUCTIONED. NOTIFIED GEAR INSPECTOR. WILL ALSO ENDORSE TO DAY SHIFT
[2017-05-25] MEDS: BLOOD SUGAR DIAGNOSTIC 1 EACH STRIP IN SCH ×4 (05:35→23:27)
[2017-05-25] MEDS: INSULIN REGULAR, HUMAN 100 UNIT/ML 3 ML VIAL SQ PRN ×3 (05:36→23:31)
[2017-05-25 06:13] LABS: BASOPHILS % (AUTO) 0.6 % (0.0-2.0); EOSINOPHILS # (AUTO) 0.1 /CMM (0.0-0.7); EOSINOPHILS % (AUTO) 1.8 % (0.0-6.0); HEMATOCRIT 24 % (33-45); LYMPHOCYTES # (AUTO) 1.5 /CMM (0.8-4.8); LYMPHOCYTES % (AUTO) 19.2 % (20.0-44.0); MEAN CORPUSCULAR HEMOGLOBIN 32 PG (26.0-33.0); MEAN CORPUSCULAR HGB CONC 34 g/dl (31.0-36.0); MEAN CORPUSCULAR VOLUME 93 fL (82-100); MONOCYTES # (AUTO) 0.7 /CMM (0.1-1.30); MONOCYTES % (AUTO) 9.3 % (2.0-12.0); NEUTROPHILS # (AUTO) 5.4 /CMM (1.8-8.9); NEUTROPHILS % (AUTO) 69.1 % (43.0-81.0); PLATELET COUNT (AUTO) 95 /CMM (150-450); RDW COEFFICIENT OF VARIATION 16.6 (11.5-15.0); RED BLOOD CELL COUNT(AUTO) 2.52 MIL/uL (4.0-5.2); WHITE BLOOD COUNT (AUTO) 7.8 K/uL (4.3-11.0)
--- NOTE | 2017-05-25 06:30 | NUR ---
RN CLOSING NOTES PT REMAINS STABLE OF THE MOMENT. STILL CURRENTLY WITH BLOODY STOOLS BUT VITALS ARE STABLE. ALL DUE MEDS GIVEN, AM CARE PROVIDED. WILL ENDORSE CONNOR TO AM RN
[2017-05-25 06:40] LABS: CALCIUM, SERUM 7.2 mg/dL (8.5-10.1); CARBON DIOXIDE 20 mmol/L (21-32); CHLORIDE 109 mmol/L (98-107); CREATININE 1.7 mg/dL (0.6-1.3); GLUCOSE 129 mg/dL (74-106); MAGNESIUM 2.1 mg/dL (1.8-2.4); PHOSPHORUS 4.3 mg/dL (2.5-4.9); POTASSIUM 4.3 mmol/L (3.5-5.1); SODIUM SERUM 138 mmol/L (136-145); UREA NITROGEN, BLOOD 61 mg/dL (7-18)
[2017-05-25 06:48] LABS: IRON, SERUM 118 ug/dl (50-175); TOTAL IRON BINDING CAPACITY 125 ug/dl (250-450)
--- NOTE | 2017-05-25 07:26 | NUR ---
LAB IN FOR H/H DRAW HOWEVER BLOOD TRANSFUSION IS FINISHING UP (NS IS INFUSING THE REST OF THE BLOOD THROUGH THE LINE). LAB WILL COME BACK IN AN HOUR FOR H/H DRAW.
[2017-05-25] MEDS: HYDROGEL DRESSING 90 GM TUBE TP SCH (08:22)
[2017-05-25 09:08] LABS: HEMOGLOBIN 8.4 g/dL (11.5-14.8)
--- NOTE | 2017-05-25 10:04 | NUR ---
DR. ARMAS AT BEDSIDE, REPORTED TO HER EVENTS OF LAST NIGHT: PT RECVD 3 UNITS PRBC, SHE SEES LATEST H/H NO TRANSFUSION ORDER AT THIS TIME BUT TO KEEP H/H EVERY 6HRS WITH STANDING ORDERS FOR TRANSFUSIONS (SEE [facility] NURSING NOTE Q6HRS). PT IS SCHEDULED FOR EGD TODAY AFTER 1PM. ALSO REPORTED TO HER THAT NO HD NURSE SHOWED UP LAST NIGHT SHE CALLS HD NURSE AND STATES PT WILL HAVE HD TODAY.
[2017-05-25 11:17] LABS: BAND % (MANUAL) 1 % (0.0-5.0); LYMPHOCYTES % (MANUAL) 15 % (16-48); MONOCYTES % (MANUAL) 1 % (0-11.0); NEUTROPHILS % (MANUAL) 83 (42-76)
[2017-05-25] MEDS: LEVETIRACETAM (500MG) 500 MG in IV NS 0.9% 100 ML IV SCH ×2 (11:19→23:27)
--- NOTE | 2017-05-25 11:27 | NUR ---
ALBERTO contacted pt's son Scotty Sheehan in regards to scheduling a bioethics meeting per Dr. Temple and HUMZA Klein. Scotty informed ALBERTO he will have to speak with all his brothers in regards to what day and time works best and will contact ALBERTO. ALBERTO gave Scotty her contact information.
[2017-05-25] MEDS: OCTREOTIDE 1,250 MCG in IV NS 0.9% 247.5 ML IV PRN (12:24)
--- NOTE | 2017-05-25 12:41 | NUR ---
GI SHAILA VALENZUELA IN TO EVAL THE PATIENT, STATES THEY WILL DO THE EGD PROCEDURE AT 1300. SHE STATES TO STOP THE IVF D5 1/2 NS DUE TO THIS MORNING CHEST XRAY.
[2017-05-25 13:28] LABS: HEMOGLOBIN 7.9 g/dL (11.5-14.8)
--- NOTE | 2017-05-25 14:31 | NUR ---
BEDSIDE AT EGD COMPLETE, DR. YOON STATES THAT HE GAVE EPI AT BLEEDING SITES. ORDERS TO CONTINUE, OCTREOTIDE AND PROTONIX REGLAN IV Q6HRS X3 DOSES. KEEP PT NPO. HE STATES THAT THE BLEED IS LIKELY DUE TO PORTAL HYPERTENSION.
[2017-05-25] MEDS: diphenhydrAMINE HCL 50 MG/ML VIAL IV PRN (14:58)
--- NOTE | 2017-05-25 15:14 | NUR ---
1ST UNIT INFUSING WITH HD.
--- NOTE | 2017-05-25 15:30 | NUR ---
LEVOPHED TITRATED HIGH 15MCG SBP IS IN THE 60'S AND HEART RATE HIGH 140'S INSTRUCTED HD NURSE TO HALT FLUID REMOVAL AND LET THE BLOOD PRESSURE CATCH UP BEFORE PULLING MORE FLUIDS OUT.
[2017-05-25] MEDS ORDERED: EPINEPHRINE (1:10,000) SYRINGE 1 MG/10 ML DISP.SYRIN ONE (15:35)
--- NOTE | 2017-05-25 16:10 | NUR ---
2ND UNIT COMPLETE; INFUSED WITH HD.
--- NOTE | 2017-05-25 16:37 | NUR ---
HD COMPLETE 2 LITERS OUT
--- NOTE | 2017-05-25 18:09 | NUR ---
DR. ARMAS ORDERS TO RESUME D5 1/2 NS AFTER EGD, SHE IS AWARE THE PT IS ON PROTONIX, OCTREOTIDE AND LEVOPHED GTT.
--- NOTE | 2017-05-25 18:44 | NUR ---
RT NOTE PT IN STABLE. CONDITION. PT REMAINS VENTILATED VIA TRACHEOSTOMY TUBE. SETTINGS PRESCRIBED. ALARMS SET PER PROTOCOL AND AUDIBLE. AMBU BAG AT BED SIDE. NO DISTRESS NOTED. FAMILY AT BED SIDE. PT AWAKE AND ALERT. Addendum: 05/25/17 at 1846 by RIOS ROCHA RT Amended: Links added.
--- NOTE | 2017-05-25 19:30 | NUR ---
RN INITIAL NOTES RECEIVED PT ASLEEP ON BED, EASILY AROUSABLE TO NAME, A/O X 1, NON-VERBAL, ABLE TO NOD AND SIGNAL. ON VENT, AC 14, TV 500, 35% FIO2, PEEP 0, PORTEX 8, SATURATING WELL, NO S/S OF RESP DISTRESS. CURRENTLY AFIB ON THE MONITOR, HR 100-110'S. RIGHT CHEST WALL HD CATH NOTED. GTUBE ON LOW INTERMITTENT SUCTION, SANGUINOUS DRAINAGE NOTED. RIGHT UPPER ARM PICC WITH D5 1/2 NS @ 40MLS/HR, SANDOSTATIN DRIP @ 10MLS/HR, AND PROTONIX DRIP @ 50MLS/HR, LEVOPHED @ 1MCG/MIN, LEFT FOREARM 20G, ALL LINES FLUSHED AND PATENT, NO S/S OF INFILTRATION/INFECTION, DRESSINGS CDI. BED LOW AND LOCKED, SIDERAILS UP, CALL LIGHT WITHIN REACH, BED ALARM ON. WILL MONITOR CLOSELY
--- NOTE | 2017-05-25 20:18 | NUR ---
Received pt on vent support,AC 14,500,35%, 0PEEP, pt stable no sob or distress noted, alarms audible vent plugged into red outlet, will continue monitoring pt per mds orders. Addendum: 05/25/17 at 2021 by JOSEF MORELAND RT Amended: Links added.
--- NOTE | 2017-05-25 21:00 | NUR ---
RN NOTES PT NOTED TO HAVE VOMITED BLOOD, ASPIRATION PRECAUTIONS FOLLOWED. ZOFRAN GIVEN FOR EMESIS. VITALS CURRENTLY WNL
[2017-05-25] MEDS: ONDANSETRON HCL/PF 4 MG/2 ML VIAL IV PRN (21:03)
[2017-05-25] MEDS: MUPIROCIN OINT 2% 22 GM TUBE SCH (21:03)
[2017-05-26] VITALS (128 sets, daily range): BP systolic 42–136; BP diastolic 15–83
[2017-05-26 01:25] LABS: HEMOGLOBIN 8.7 g/dL (11.5-14.8)
--- NOTE | 2017-05-26 02:00 | NUR ---
RN NOTES PT NOTED TO HAVE VOMITED BLOOD AGAIN, ASPIRATION PRECAUTIONS FOLLOWED. ZOFRAN GIVEN FOR EMESIS. VITALS CURRENTLY WNL. GT STILL CONNECTED TO LOW INTERMITTENT WALL SUCTION WITH SANGUINOUS OUTPUT
[2017-05-26] MEDS: ONDANSETRON HCL/PF 4 MG/2 ML VIAL IV PRN ×3 (02:06→20:00)
[2017-05-26] MEDS: IV D5/0.45 NACL 1,000 ML IV PRN (05:14)
[2017-05-26] MEDS: BLOOD SUGAR DIAGNOSTIC 1 EACH STRIP IN SCH ×4 (05:14→23:26)
[2017-05-26] MEDS: PANTOPRAZOLE 80 MG in IV NS 0.9% 500 ML IV PRN ×3 (06:41→23:27)
[2017-05-26 06:47] LABS: HEMOGLOBIN 8.2 g/dL (11.5-14.8)
--- NOTE | 2017-05-26 06:50 | NUR ---
RN CLOSING NOTES PT REMAINS STABLE OF THE MOMENT. ALL DUE MEDS GIVEN, AM CARE PROVIDED. WILL ENDORSE CONNOR TO AM RN
--- NOTE | 2017-05-26 07:33 | NUR ---
INITIAL WRIST CLOSER NOTE RCVD PT AWAKE AND ALERT, UNDERSTAND ETHIOPIAN. AFIB ON TELE. TOLERATING ORDERED VENT SETTINGS. G-TUBE TO LOW INTERMITTENT SUCTION. NO OUPTPUT OBSERVED IN CANISTER, TUBING HAS BRIGHT BLOOD IN IT. PT'S ABDOMINAL AREA APPEARS DISTENDED WITH SOME SKIN TEARS. G-TUBE PLACEMENT VERIFIED BY AUSCULTATION/ASPIRATION. NO GASTRIC CONTENT OBSERVED. IV SITES C/D/I/PATENT. NO S/O INFILTRATION/PHLEBITIS OBSERVED UPON FLUSHING. IVF INFUSING ORDERED. WILL CONTINUE TO MONITOR PT FOR SAFETY AND COMFORT. CALL LIGHT WITHIN REACH. BED IN LOW AND LOCKED POSITION.
--- NOTE | 2017-05-26 08:13 | NUR ---
RT PT RECEIVED TRACHED WITH A PORTEX 8, PT IS ON THE VENT WITH NOTED SETTINGS. PT IS AWAKE AND ALERT. VENT ALARMS ARE SET AND AUDIBLE WITH BVM BY BEDSIDE. CAP COVERER CUFF PRESSURE NOTED. VENT IS PLUGGED INTO RED OUTLET. SX SMALL THICK/THIN YELLOW SECRETIONS. WILL CONTINUE TO MONITOR. Addendum: 05/26/17 at 1117 by LAURA MANRIQUEZ RT Amended: Links added.
[2017-05-26] MEDS: Z GUARD REMEDY 2 OZ OINT TP PRN (08:52)
[2017-05-26] MEDS: MUPIROCIN OINT 2% 22 GM TUBE SCH ×2 (08:52→20:01)
[2017-05-26] MEDS: HYDROGEL DRESSING 90 GM TUBE TP SCH (08:53)
--- NOTE | 2017-05-26 09:31 | NUR ---
FINAL COAT SPRAYER NOTE PT HAD EPISODE OF BLOODY EMESIS BLOOD CLOTS WERE OBSERVED IN EMESIS. TWO LARGE TOWELS WERE SOAKED IN ADDITION TO BLOOD IN CANISTER. PT WAS SUCTIONED ORALLY. PT GIVEN ZOFRAN ORDERED THIS AM FOR C/O NAUSEA.
[2017-05-26] MEDS: LEVETIRACETAM (500MG) 500 MG in IV NS 0.9% 100 ML IV SCH ×2 (11:54→23:27)
[2017-05-26] MEDS: OCTREOTIDE 1,250 MCG in IV NS 0.9% 247.5 ML IV PRN (11:55)
[2017-05-26 12:59] LABS: HEMOGLOBIN 7.1 g/dL (11.5-14.8)
--- NOTE | 2017-05-26 13:11 | NUR ---
PAIRER NOTE SECOND EPISODE OF EMESIS BLOOD NOTED THIS TIME SMALL, PT SUCTIONED. PT DENIES ANY NAUSEA AT THIS TIME. SPOKE WITH SHAILA VALENZUELA FOR CAR INFORMED HER THAT G-TUBE WAS FLUSHED WITH 120 ML WATER, UNABLE TO ASPIRATE SAME AMOUNT. PT STILL CONNECTED TO LOW INTERMITTENT SUCTION. RCVD ORDER FOR ONE UNIT FFP. WILL CONTINUE TO MONITOR PT.
[2017-05-26] MEDS: NOREPINEPHRINE 16 MG in IV D5W 500 ML IV PRN (13:38)
[2017-05-26] MEDS: INSULIN REGULAR, HUMAN 100 UNIT/ML 3 ML VIAL SQ PRN (18:06)
--- NOTE | 2017-05-26 19:20 | NUR ---
SHEETROCK APPLICATOR NOTE PLASMA INFUSED WITHOUT ANY SIGNS OF REACTION, PT REMAINS AFEBRILE, SBP MAINTAINED WITH PRESSORS. SHAILA VALENZUELA INFORMED OF COMPLETION OF PLASMA TRANSFUSION REQUESTED. PT REMAINS A/0 X2, AFIB ON TELE, PT'S SON AT BEDSIDE UPDATED ON PT'S CONDITION. PT CONTINUES TO TOLERATE ORDERED VENT SETTINGS WELL. G-TUBE TO INTERMITTENT LOW SUCTION, BLOODY DRAINAGE OBSERVED AND CHARTED IN FLOWSHEET. IV SITES REMAIN C/D/I/PATENT. IVF INFUSING WITHOUT ANY S/O INFILTRATION/PHLEBITIS. PT'S CARE ENDORSED TO OWNER PROFESSIONAL ENGINEER RN FOR CONTINUITY OF CARE.
--- NOTE | 2017-05-26 19:30 | NUR ---
RN INITIAL NOTES RECEIVED PT AWAKE ON BED, RAKAN AMBROSE AT BEDSIDE. A/O X 1-2, NON-VERBAL, ABLE TO NOD AND SIGNAL. ON VENT, AC 14, TV 500, 35% FIO2, PEEP 0, PORTEX 8, SATURATING WELL, NO S/S OF RESP DISTRESS. CURRENTLY AFIB ON THE MONITOR, HR 100-110'S. RIGHT CHEST WALL HD CATH NOTED. GTUBE ON LOW INTERMITTENT SUCTION, SANGUINOUS DRAINAGE NOTED. RIGHT UPPER ARM PICC WITH D5 1/2 NS @ 40MLS/HR, SANDOSTATIN DRIP @ 10MLS/HR, AND PROTONIX DRIP @ 50MLS/HR, LEVOPHED @ 6MCG/MIN, LEFT FOREARM 20G, ALL LINES FLUSHED AND PATENT, NO S/S OF INFILTRATION/INFECTION, DRESSINGS CDI. BED LOW AND LOCKED, SIDERAILS UP, CALL LIGHT WITHIN REACH, BED ALARM ON. WILL MONITOR CLOSELY
[2017-05-26 20:28] LABS: HEMOGLOBIN 5.6 g/dL (11.5-14.8)
--- NOTE | 2017-05-26 21:26 | NUR ---
RN NOTES 2030 RECEIVED CRITICAL HGB 5.6 AND HCT 16, ATTEMPTED TO CONTACT DR GEORGES ARMAS AND NICOLAS BEST SPINE NURSE (GI) TO NOTIFY RESULTS 2124 RECEIVED ORDERS FROM NICOLAS BEST NP: TRANSFUSE 2 UNITS PRBC, 1 UNIT PLATELET, 1 FFP, STANDING ORDER (IF HGB <7, TRANSFUSE 2 UNITS PRBC; IF HGB < 8, TRANSFUSE 1 UNIT PRBC, CBC Q4H), AND GIVE REGLAN IV STAT
[2017-05-26] MEDS: METOCLOPRAMIDE HCL 10 MG/2 ML VIAL IV SCH (21:41)
--- NOTE | 2017-05-26 21:53 | NUR ---
PATIENT STABLE ON RECEIVED VENT SETTINGS. NO S/S OF SOB. PATIENT HAS BILATERAL CHEST RISE. ALARMS ARE SET AND AUDIBLE THROUGHOUT ICU UNIT. MECHANICAL VENT PLUGGED INTO RED OUTLET. AIRWAY PATENT AND SECURED. WILL CONTINUE TO MONITOR PATIENT THROUGHOUT SHIFT. Addendum: 05/26/17 at 2157 by FREDI YOUSIF RT Amended: Links added.
--- NOTE | 2017-05-26 22:00 | NUR ---
RN NOTES TALKED TO NICOLAS BEST NP ON THE PHONE. RECEIVED NEW ORDER TO CHANGE ZOFRAN 4MG IV Q6H TO A SCHEDULED DOSE. ALSO TO OBTAIN CONSENT FOR EGD TOMORROW. NICOLAS LINTON WILL TRY TO CONTACT DR JYOTI MELÉNDEZ FOR A POSSIBLE HD TONIGHT
[2017-05-26] MEDS ORDERED: ONDANSETRON HCL/PF 4 MG/2 ML VIAL ONE (23:19)
[2017-05-26] MEDS: ONDANSETRON HCL/PF 4 MG/2 ML VIAL IV SCH (23:27)
[2017-05-27] VITALS (148 sets, daily range): BP systolic 51–133; BP diastolic 20–71
[2017-05-27] MEDS: IV D5/0.45 NACL 1,000 ML IV PRN (02:45)
[2017-05-27] MEDS: METOCLOPRAMIDE HCL 10 MG/2 ML VIAL IV SCH ×3 (04:15→20:12)
--- NOTE | 2017-05-27 04:26 | NUR ---
RN NOTES 1 UNIT PLATELET TRANSFUSED AND COMPLETED @ 4021. UNABLE TO "END" TRANSFUSION OPTION IS NOT AVAILABLE. TRANSFUSION WAS VERIFIED BY 2ND RN PRIOR TO STARTING ADMINISTRATION. ALL VITALS STABLE. NO UNTOWARD REACTION Addendum: 05/27/17 at 0439 by ZAID YORK RN VERIFIED THE PLATELET AGAIN WITH 2ND RN MILLICENT
[2017-05-27] MEDS ORDERED: ONDANSETRON HCL/PF 4 MG/2 ML VIAL ONE (05:10)
[2017-05-27] MEDS: BLOOD SUGAR DIAGNOSTIC 1 EACH STRIP IN SCH ×3 (05:15→17:37)
[2017-05-27] MEDS: ONDANSETRON HCL/PF 4 MG/2 ML VIAL IV SCH ×4 (05:16→23:43)
[2017-05-27] MEDS: INSULIN REGULAR, HUMAN 100 UNIT/ML 3 ML VIAL SQ PRN ×3 (05:17→17:42)
--- NOTE | 2017-05-27 06:30 | NUR ---
RN CLOSING NOTES 2ND UNIT PRBC OF 2 UNITS ORDERED IS CURRENTLY TRANSFUSING RIGHT NOW. PATIENT HAD 3 BOWEL MOVEMENTS WITH BLOODY STOOLS. GT TO LOW INTERMITTENT SUCTION HAS 100 MLS SANGUINOUS OUTPUT. LEVO REMAINS TO BE @ 5MCG/MIN. STILL AFIB, HR 100-110'S. ALL OTHER DUE MEDS GIVEN, AM CARE PROVIDED. WILL ENDORSE CONNOR TO AM RN
[2017-05-27] MEDS ORDERED: ANESTHESIA TRAY IN PYXIS 1 EA TRAY MC ONE (07:26)
--- NOTE | 2017-05-27 07:33 | NUR ---
INITIAL PUBLICATIONS DESIGNER NOTE RCVD PT AWAKE AND ALERT, SHOWING NO S/O DISTRESS/PAIN AFIB ON TELE. TOLERATING ORDERED VENT SETTINGS. G-TUBE TO LOW INTERMITTENT SUCTION WITH BLOODY DRAINAGE ON CANISTER. RYLEE PICC C/D/I/PATENT NO S/O INFILTRATION/PHLEBITIS OBSERVED. LEFT HAND #20 FLUSHING WITHOUT RESISTANCE BUT PT REPORTS PAIN. IV SITE DISCONTINUED. LUE NOTED TO BE EDEMATOUS. WILL CONTINUE TO MONITOR PT FOR SAFETY AND COMFORT. CALL LIGHT WITHIN REACH. BED IN LOW AND LOCKED POSITION.
--- NOTE | 2017-05-27 08:10 | NUR ---
CONSUMER EXPERIENCE CONSULTANT NOTE EGD FINISHED MD UNABLE TO LOCATE BLEEDING SITE. DR YOON SPOKE WITH PT'S SON, ARNOL AND DISCUSSED POSSIBLE REFERRAL FOR SURGERY WITH DR. MELÉNDEZ FOR INTERVENTIONAL RADIOLOGY EVAL FOR BLEEDING POSSIBLE ANGIOGRAPH. PT BEING RECOVERED IN ROOM VITAL SIGNS REMAIN STABLE. SECRETIONS BEING SUCTIONED NEEDED.
--- NOTE | 2017-05-27 08:17 | NUR ---
ICU RECOVERY NOTE PT STARTING TO WAKE UP TO SPEECH/TOUCH, VITAL REMAIN STABLE.
--- NOTE | 2017-05-27 08:26 | NUR ---
ICU RECOVERY NOTE PT'S FULLY AWAKE, ABLE TO FOLLOW COMMANDS, VITAL SIGNS REMAIN STABLE. TOLERATING ORDERED VENT SETTINGS WELL.
[2017-05-27] MEDS: HYDROGEL DRESSING 90 GM TUBE TP SCH (08:43)
[2017-05-27] MEDS: Z GUARD REMEDY 2 OZ OINT TP PRN (08:43)
[2017-05-27] MEDS: MUPIROCIN OINT 2% 22 GM TUBE SCH ×2 (08:43→20:13)
[2017-05-27] MEDS: PANTOPRAZOLE 80 MG in IV NS 0.9% 500 ML IV PRN ×2 (08:43→20:12)
[2017-05-27 11:07] LABS: CALCIUM, SERUM 7.2 mg/dL (8.5-10.1); CARBON DIOXIDE 22 mmol/L (21-32); CHLORIDE 111 mmol/L (98-107); CREATININE 1.8 mg/dL (0.6-1.3); GLUCOSE 207 mg/dL (74-106); POTASSIUM 4.2 mmol/L (3.5-5.1); SODIUM SERUM 142 mmol/L (136-145); UREA NITROGEN, BLOOD 44 mg/dL (7-18)
[2017-05-27] MEDS: LEVETIRACETAM (500MG) 500 MG in IV NS 0.9% 100 ML IV SCH ×2 (11:13→23:43)
[2017-05-27] MEDS: OCTREOTIDE 1,250 MCG in IV NS 0.9% 247.5 ML IV PRN (11:16)
[2017-05-27 11:48] LABS: HEMOGLOBIN 5.9 g/dL (11.5-14.8)
--- NOTE | 2017-05-27 12:34 | NUR ---
FOILING MACHINE ADJUSTER NOTE PT RECEIVING DIALYSIS AT THIS TIME, SBP DECREASING, TWO UNITS OF PRBC's ORDERED AND TO BE GIVEN WITH DIALYSIS. WILL F/U WITH BLOOD BANK. VASOPRESSORS BEING TITRATED UP.
--- NOTE | 2017-05-27 14:02 | NUR ---
DIRECTOR VALIDATION NOTE TWO UNITS PRBC's AND ALBUMIN GIVEN DURING DIALYSIS, VASOPRESSORS TITRATED UP. SBP MAINTAINING. DIALYSIS STOPPED AT THIS TIME. WILL CONTINUE TO MONITOR PT. PT REMAINED AFEBRILE POST-TRANSFUSION.
--- NOTE | 2017-05-27 15:01 | NUR ---
LEGAL BILLING COORDINATOR NOTE DR. MELÉNDEZ'S SENIOR TRIAL ATTORNEY, SERA AT BEDSIDE SPEAKING WITH PT'S SON REGARDING SURGICAL OPTIONS. PT'S FAMILY WANT TO PURSUE IR EMBOLIZATION AT THIS TIME. PT NEEDS TO BE TRANSFERRED TO [facility] FOR PROCEDURE. PT'S SON, SYEDA AND ARNOL SPOKE WITH SERA. SYEDA WAS INFORMED THAT PT IS NOT STABLE FOR TRANSFER AT THIS TIME, AND TRANSFERRING PT REQUIRES COORDINATION AMONG BOTH FACILITIES IN ORDER TO TRANSFER PT. CASE MANAGEMENT CONSULT WAS OFFERED, PT AGREED.
[2017-05-27] MEDS: ALBUMIN 25% 25 GM in PREMIX 1 EA IV PRN (15:38)
[2017-05-27] MEDS: NOREPINEPHRINE 16 MG in IV D5W 500 ML IV PRN (15:38)
[2017-05-27 16:23] LABS: BASOPHILS # (AUTO) 0.1 /CMM (0.0-0.2); BASOPHILS % (AUTO) 0.4 % (0.0-2.0); EOSINOPHILS # (AUTO) 0.1 /CMM (0.0-0.7); HEMATOCRIT 22 % (33-45); HEMOGLOBIN 7.6 g/dL (11.5-14.8); LYMPHOCYTES # (AUTO) 1.6 /CMM (0.8-4.8); LYMPHOCYTES % (AUTO) 11.6 % (20.0-44.0); MEAN CORPUSCULAR HEMOGLOBIN 31 PG (26.0-33.0); MEAN CORPUSCULAR HGB CONC 35 g/dl (31.0-36.0); MEAN CORPUSCULAR VOLUME 87 fL (82-100); MONOCYTES # (AUTO) 1.3 /CMM (0.1-1.30); MONOCYTES % (AUTO) 9.4 % (2.0-12.0); NEUTROPHILS # (AUTO) 10.3 /CMM (1.8-8.9); NEUTROPHILS % (AUTO) 77.6 % (43.0-81.0); PLATELET COUNT (AUTO) 82 /CMM (150-450); RDW COEFFICIENT OF VARIATION 15.4 (11.5-15.0); RED BLOOD CELL COUNT(AUTO) 2.46 MIL/uL (4.0-5.2); WHITE BLOOD COUNT (AUTO) 13.4 K/uL (4.3-11.0)
[2017-05-27 17:30] LABS: LYMPHOCYTES % (MANUAL) 14 % (16-48); MONOCYTES % (MANUAL) 6 % (0-11.0); NEUTROPHILS % (MANUAL) 80 (42-76)
--- NOTE | 2017-05-27 19:00 | NUR ---
OVEN EQUIPMENT REPAIRER NOTE PT REMAINS ALERT-ORIENTED, AFIB ON TELE, TOLERATING ORDERED VENT SETTINGS. G-TUBE TO LOW INTERMITTENT SUCTION. RYLEE PICC C/D/I/PATENT. NO S/O INFILTRATION/PHLEBITIS OBSERVED, IVF INFUSING. ONE UNIT PRBC STARTED. PT TOLERATING WELL. PT'S CARE WILL BE ENDORSED TO STORE CUSTODIAN RN FOR CONTINUITY OF CARE. BED IN LOW AND LOCKED POSITION. CALL LIGHT WITHIN REACH. PT'S FAMILY AT BEDSIDE.
--- NOTE | 2017-05-27 21:00 | NUR ---
TELEGRAPH AND TELETYPE OPERATOR - REC'D REPORT FROM DICK RN. REC'D PT. W/LEVOPHED INFUSING AT 13MCG/MIN., KRISSY - STATIN GTT. INFUSING AT 50 MCG/HR (10CC/HR), PROTONIX GTT. INFUSING AT 50 CC/HR (8MG/HR), D5-1/2NS INFUSING AT 40CC/HR & PRBC FINISHING FROM DAYSHIFT. ALL IVF'S INFUSING IN LUE PICC LINE. HEART MONITOR SHOWS AFIB/BBB W/SBP'S MAINTAINING IN THE 90'S-LOW 100'S. PT'S FAMILY LEFT FOR THE EVENING. PT.IS TRACHED & PEGGED. PEG TO LIS. 100CC OF DK. RED BLOOD IS ALREADY IN NEW CONTAINER FOR THIS SHIFT. +ISOLATION FOR MRSA/NARES. RT. C/W HD CATH INTACT. DX DONE TODAY W/1.2L OFF. CONT. POC.
[2017-05-27 23:05] LABS: BASOPHILS # (AUTO) 0.3 /CMM (0.0-0.2); BASOPHILS % (AUTO) 1.8 % (0.0-2.0); EOSINOPHILS # (AUTO) 0.1 /CMM (0.0-0.7); EOSINOPHILS % (AUTO) 0.7 % (0.0-6.0); HEMATOCRIT 23 % (33-45); HEMOGLOBIN 7.9 g/dL (11.5-14.8); LYMPHOCYTES # (AUTO) 2.1 /CMM (0.8-4.8); LYMPHOCYTES % (AUTO) 11.2 % (20.0-44.0); MEAN CORPUSCULAR HEMOGLOBIN 30 PG (26.0-33.0); MEAN CORPUSCULAR HGB CONC 34 g/dl (31.0-36.0); MEAN CORPUSCULAR VOLUME 87 fL (82-100); MONOCYTES # (AUTO) 2.4 /CMM (0.1-1.30); MONOCYTES % (AUTO) 12.5 % (2.0-12.0); NEUTROPHILS # (AUTO) 14.2 /CMM (1.8-8.9); NEUTROPHILS % (AUTO) 73.8 % (43.0-81.0); PLATELET COUNT (AUTO) 106 /CMM (150-450); RED BLOOD CELL COUNT(AUTO) 2.64 MIL/uL (4.0-5.2); WHITE BLOOD COUNT (AUTO) 19.1 K/uL (4.3-11.0)
[2017-05-28] VITALS (97 sets, daily range): BP systolic 70–155; BP diastolic 30–89
[2017-05-28] MEDS: BLOOD SUGAR DIAGNOSTIC 1 EACH STRIP IN SCH ×4 (00:13→17:23)
[2017-05-28] MEDS: INSULIN REGULAR, HUMAN 100 UNIT/ML 3 ML VIAL SQ PRN ×3 (00:13→17:27)
--- NOTE | 2017-05-28 01:15 | NUR ---
PRODUCTION WELDING SUPERVISOR - CBC DRAWN LATE DUE TO TRANSFUSION. H&H IS 7.9/. ONE MORE UNIT OF PRBC'S ORDERED & ADM. AT ONE AM. CONT. POC.
[2017-05-28 01:54] LABS: BAND % (MANUAL) 6 % (0.0-5.0); LYMPHOCYTES % (MANUAL) 11 % (16-48); MONOCYTES % (MANUAL) 4 % (0-11.0); NEUTROPHILS % (MANUAL) 79 (42-76)
--- NOTE | 2017-05-28 04:00 | NUR ---
MORTGAGE ADVISOR - COMPLETE BED BATH ADM. W/A PALM SIZE MELENA STOOL/BRIGHT RED IN COLOR. ORAL, TRACH,VENT,PEG,JAMIE & SKIN/WOUND CARE ADM.
[2017-05-28] MEDS: METOCLOPRAMIDE HCL 10 MG/2 ML VIAL IV SCH ×3 (05:14→20:36)
[2017-05-28] MEDS: ONDANSETRON HCL/PF 4 MG/2 ML VIAL IV SCH ×3 (05:15→17:19)
[2017-05-28 05:19] LABS: BASOPHILS # (AUTO) 0.1 /CMM (0.0-0.2); BASOPHILS % (AUTO) 0.5 % (0.0-2.0); EOSINOPHILS # (AUTO) 0.1 /CMM (0.0-0.7); EOSINOPHILS % (AUTO) 0.6 % (0.0-6.0); HEMATOCRIT 23 % (33-45); LYMPHOCYTES # (AUTO) 1.3 /CMM (0.8-4.8); LYMPHOCYTES % (AUTO) 6.4 % (20.0-44.0); MEAN CORPUSCULAR HEMOGLOBIN 30 PG (26.0-33.0); MEAN CORPUSCULAR HGB CONC 35 g/dl (31.0-36.0); MEAN CORPUSCULAR VOLUME 87 fL (82-100); MONOCYTES # (AUTO) 1.5 /CMM (0.1-1.30); MONOCYTES % (AUTO) 7.6 % (2.0-12.0); NEUTROPHILS # (AUTO) 16.9 /CMM (1.8-8.9); NEUTROPHILS % (AUTO) 84.9 % (43.0-81.0); PLATELET COUNT (AUTO) 85 /CMM (150-450); RDW COEFFICIENT OF VARIATION 14.6 (11.5-15.0); RED BLOOD CELL COUNT(AUTO) 2.63 MIL/uL (4.0-5.2); WHITE BLOOD COUNT (AUTO) 19.9 K/uL (4.3-11.0)
--- NOTE | 2017-05-28 05:20 | NUR ---
MEDICAL DETAIL REPRESENTATIVE -PT'S ACCUCHECK WAS DONE AFTER AM B/W DRAWN & WAS #45. ACCUCHECK REPEATED WITH DIFFERENT FINGER & VALUE WAS #35. ONE AMP OF D50 ADMINISTERED TO PT. WILL RECHECK IN 30 MINS. CONT. POC.
[2017-05-28 05:43] LABS: CALCIUM, SERUM 7.4 mg/dL (8.5-10.1); CARBON DIOXIDE 26 mmol/L (21-32); CHLORIDE 109 mmol/L (98-107); CREATININE 1.7 mg/dL (0.6-1.3); MAGNESIUM 1.5 mg/dL (1.8-2.4); PHOSPHORUS 4.2 mg/dL (2.5-4.9); POTASSIUM 4.1 mmol/L (3.5-5.1); SODIUM SERUM 143 mmol/L (136-145); UREA NITROGEN, BLOOD 31 mg/dL (7-18)
[2017-05-28 05:48] LABS: INR 1.68 (0.87-1.13); PROTHROMBIN TIME 17.6 SECS (9.5-12.7)
[2017-05-28 05:52] LABS: GLUCOSE 48 mg/dL (74-106)
[2017-05-28] MEDS: IV D5/0.45 NACL 1,000 ML IV PRN (06:10)
[2017-05-28] MEDS: PANTOPRAZOLE 80 MG in IV NS 0.9% 500 ML IV PRN ×2 (06:18→16:21)
--- NOTE | 2017-05-28 06:18 | NUR ---
MALE PT INTUBATED ON DR ORDERED VENT SETTINGS. INES WELL, NO S/S OF SOB NOTED. ALARMS SET & AUDIBLE THROUGHOUT ICU UNIT. MECHANICAL VENTILATOR PLUGGED IN TO RED OUTLET. BILATERAL CHEST RISE OBSERVED. WILL CONTINUE TO MONITOR Addendum: 05/28/17 at 0618 by MILADY LEDEZMA RT Amended: Links added.
[2017-05-28 06:22] LABS: BAND % (MANUAL) 2 % (0.0-5.0); LYMPHOCYTES % (MANUAL) 7 % (16-48); MONOCYTES % (MANUAL) 6 % (0-11.0); NEUTROPHILS % (MANUAL) 85 (42-76)
--- NOTE | 2017-05-28 07:15 | NUR ---
PEOPLE GREETER - A PARTIAL BEDBATH WAS ADM. AT 06:45 AM. PT'S DIAPER & CHUX CHANGED W/LIP READING TEACHER ASSIST. PT.DID HAVE LIQUID MELENA STOOL EXPELLED. JAMIE CARE ADM. CONT. POC.
--- NOTE | 2017-05-28 07:45 | NUR ---
ICU/RN - Initial Notes Received pt in bed, trach to mechanical vent with settings as ordered. No s/s or respiratory distress. Pt alert 1-2, reorientation provided. On tele reading Afib 90-100's. GT to low intermittent suction, with sanguineous drainage noted. Pt noted with dark red bloody stool. PICC line RYLEE patent and intact with IVF infusing well. Levophed gtt titrated accordingly. Safety and comfort measures in place. Will continue to monitor pt closely.
[2017-05-28] MEDS: HYDROGEL DRESSING 90 GM TUBE TP SCH (08:45)
[2017-05-28] MEDS: MUPIROCIN OINT 2% 22 GM TUBE SCH ×2 (08:45→20:37)
[2017-05-28 09:07] LABS: BASOPHILS % (AUTO) 0.1 % (0.0-2.0); EOSINOPHILS # (AUTO) 0.2 /CMM (0.0-0.7); HEMATOCRIT 22 % (33-45); HEMOGLOBIN 7.5 g/dL (11.5-14.8); LYMPHOCYTES # (AUTO) 2.2 /CMM (0.8-4.8); LYMPHOCYTES % (AUTO) 12.2 % (20.0-44.0); MEAN CORPUSCULAR HEMOGLOBIN 31 PG (26.0-33.0); MEAN CORPUSCULAR HGB CONC 35 g/dl (31.0-36.0); MEAN CORPUSCULAR VOLUME 89 fL (82-100); MONOCYTES # (AUTO) 1.8 /CMM (0.1-1.30); MONOCYTES % (AUTO) 9.6 % (2.0-12.0); NEUTROPHILS # (AUTO) 14.2 /CMM (1.8-8.9); NEUTROPHILS % (AUTO) 77.1 % (43.0-81.0); PLATELET COUNT (AUTO) 78 /CMM (150-450); RDW COEFFICIENT OF VARIATION 15.3 (11.5-15.0); RED BLOOD CELL COUNT(AUTO) 2.46 MIL/uL (4.0-5.2); WHITE BLOOD COUNT (AUTO) 18.4 K/uL (4.3-11.0)
[2017-05-28] MEDS: NOREPINEPHRINE 16 MG in IV D5W 500 ML IV PRN (09:39)
--- NOTE | 2017-05-28 10:25 | NUR ---
ICU/RN - Notes PRBC transfusion started at this time. Vital signs monitored. Will monitor for any s/s of adverse reactions.
[2017-05-28] MEDS: OCTREOTIDE 1,250 MCG in IV NS 0.9% 247.5 ML IV PRN (10:37)
[2017-05-28] MEDS: LEVETIRACETAM (500MG) 500 MG in IV NS 0.9% 100 ML IV SCH (11:05)
[2017-05-28] MEDS ORDERED: Magnesium 1GM/D5W 100ML PREMIX PIGGYBACK IV ONE (12:00)
[2017-05-28] MEDS ORDERED: Magnesium 1GM/D5W 100ML PREMIX 100 ML IV SCH (12:00)
[2017-05-28] MEDS ORDERED: DESMOPRESSIN 20 MCG in IV NS 0.9% 50 ML IV ONE (12:00)
--- NOTE | 2017-05-28 13:00 | NUR ---
ICU/RN - Notes Transfusion completed with no s/s of adverse reactions. Pt still note with dark red bloody liquid stools.
[2017-05-28 13:59] LABS: BASOPHILS % (AUTO) 0.1 % (0.0-2.0); EOSINOPHILS # (AUTO) 0.3 /CMM (0.0-0.7); EOSINOPHILS % (AUTO) 1.6 % (0.0-6.0); HEMATOCRIT 21 % (33-45); HEMOGLOBIN 7.4 g/dL (11.5-14.8); MEAN CORPUSCULAR HEMOGLOBIN 31 PG (26.0-33.0); MEAN CORPUSCULAR HGB CONC 35 g/dl (31.0-36.0); MEAN CORPUSCULAR VOLUME 89 fL (82-100); MONOCYTES # (AUTO) 1.6 /CMM (0.1-1.30); MONOCYTES % (AUTO) 9.7 % (2.0-12.0); NEUTROPHILS # (AUTO) 12.4 /CMM (1.8-8.9); NEUTROPHILS % (AUTO) 76.6 % (43.0-81.0); PLATELET COUNT (AUTO) 74 /CMM (150-450); RDW COEFFICIENT OF VARIATION 14.8 (11.5-15.0); RED BLOOD CELL COUNT(AUTO) 2.41 MIL/uL (4.0-5.2); WHITE BLOOD COUNT (AUTO) 16.3 K/uL (4.3-11.0)
--- NOTE | 2017-05-28 15:55 | NUR ---
ICU/RN - Notes PRBC transfusion started at this time. Vital signs monitored. Will monitor for any s/s of adverse reactions.
--- NOTE | 2017-05-28 16:00 | NUR ---
ICU/RN - Notes CBC cancelled at this time, as pt is barely starting PRBC transfusion. Will reassess CBC post transfusion.
--- NOTE | 2017-05-28 17:49 | NUR ---
RT NOTE PT REMAINS ON VENT. PORTEX 8 CUFFED TRACH. TRACH MIDLINE AND SECURE. PT AWAKE AND ALERT. SETTINGS PRESCRIBED. ALARMS SET PER PROTOCOL AND AUDIBLE. VENT PLUGGED IN TO RED OUTLET. AMBU BAG AT BED SIDE. NO DISTRESS NOTED. Addendum: 05/28/17 at 1751 by RIOS ROCHA RT Amended: Links added.
--- NOTE | 2017-05-28 18:46 | NUR ---
ICU/RN - Notes PRBC transfusion started at this time. Vital signs monitored. Will monitor for any s/s of adverse reactions. Addendum: 05/28/17 at 1846 by INOCENTE ARRIOLA RN Wrong documentation. PRBC transfusion COMPLETED at this time. NO s/s of adverse reactions.
[2017-05-28 19:00] LABS: BAND % (MANUAL) 2 % (0.0-5.0); EOSINOPHILS % (MANUAL) 2 % (0-4); LYMPHOCYTES % (MANUAL) 10 % (16-48); MONOCYTES % (MANUAL) 7 % (0-11.0); NEUTROPHILS % (MANUAL) 79 (42-76)
[2017-05-28 20:10] LABS: BASOPHILS % (AUTO) 0.3 % (0.0-2.0); EOSINOPHILS # (AUTO) 0.2 /CMM (0.0-0.7); EOSINOPHILS % (AUTO) 1.5 % (0.0-6.0); HEMATOCRIT 22 % (33-45); HEMOGLOBIN 7.7 g/dL (11.5-14.8); LYMPHOCYTES # (AUTO) 1.4 /CMM (0.8-4.8); MEAN CORPUSCULAR HEMOGLOBIN 30 PG (26.0-33.0); MEAN CORPUSCULAR HGB CONC 34 g/dl (31.0-36.0); MEAN CORPUSCULAR VOLUME 86 fL (82-100); MONOCYTES # (AUTO) 1.3 /CMM (0.1-1.30); MONOCYTES % (AUTO) 8.6 % (2.0-12.0); NEUTROPHILS # (AUTO) 12.5 /CMM (1.8-8.9); NEUTROPHILS % (AUTO) 80.6 % (43.0-81.0); PLATELET COUNT (AUTO) 79 /CMM (150-450); RDW COEFFICIENT OF VARIATION 15.1 (11.5-15.0); WHITE BLOOD COUNT (AUTO) 15.4 K/uL (4.3-11.0)
[2017-05-28 21:54] LABS: BAND % (MANUAL) 1 % (0.0-5.0); EOSINOPHILS % (MANUAL) 1 % (0-4); LYMPHOCYTES % (MANUAL) 8 % (16-48); MONOCYTES % (MANUAL) 2 % (0-11.0); NEUTROPHILS % (MANUAL) 88 (42-76)
[2017-05-29] VITALS (103 sets, daily range): BP systolic 75–137; BP diastolic 30–72
[2017-05-29] MEDS: LEVETIRACETAM (500MG) 500 MG in IV NS 0.9% 100 ML IV SCH ×2 (00:40→11:00)
[2017-05-29] MEDS: ONDANSETRON HCL/PF 4 MG/2 ML VIAL IV SCH ×4 (00:41→17:11)
[2017-05-29] MEDS: INSULIN REGULAR, HUMAN 100 UNIT/ML 3 ML VIAL SQ PRN ×4 (00:58→17:16)
[2017-05-29] MEDS: PANTOPRAZOLE 80 MG in IV NS 0.9% 500 ML IV PRN ×3 (01:43→21:30)
[2017-05-29] MEDS: NOREPINEPHRINE 16 MG in IV D5W 500 ML IV PRN ×2 (01:45→16:35)
[2017-05-29 02:30] LABS: BASOPHILS # (AUTO) 0.1 /CMM (0.0-0.2); BASOPHILS % (AUTO) 0.6 % (0.0-2.0); EOSINOPHILS # (AUTO) 0.4 /CMM (0.0-0.7); EOSINOPHILS % (AUTO) 2.1 % (0.0-6.0); HEMATOCRIT 26 % (33-45); HEMOGLOBIN 8.6 g/dL (11.5-14.8); LYMPHOCYTES # (AUTO) 2.1 /CMM (0.8-4.8); LYMPHOCYTES % (AUTO) 11.8 % (20.0-44.0); MEAN CORPUSCULAR HEMOGLOBIN 29 PG (26.0-33.0); MEAN CORPUSCULAR HGB CONC 33 g/dl (31.0-36.0); MEAN CORPUSCULAR VOLUME 88 fL (82-100); MONOCYTES # (AUTO) 1.8 /CMM (0.1-1.30); MONOCYTES % (AUTO) 9.9 % (2.0-12.0); NEUTROPHILS # (AUTO) 13.4 /CMM (1.8-8.9); NEUTROPHILS % (AUTO) 75.6 % (43.0-81.0); PLATELET COUNT (AUTO) 95 /CMM (150-450); RDW COEFFICIENT OF VARIATION 15.6 (11.5-15.0); RED BLOOD CELL COUNT(AUTO) 2.94 MIL/uL (4.0-5.2); WHITE BLOOD COUNT (AUTO) 17.8 K/uL (4.3-11.0)
[2017-05-29 03:32] LABS: BAND % (MANUAL) 2 % (0.0-5.0); LYMPHOCYTES % (MANUAL) 7 % (16-48); MONOCYTES % (MANUAL) 7 % (0-11.0); NEUTROPHILS % (MANUAL) 84 (42-76)
[2017-05-29] MEDS: METOCLOPRAMIDE HCL 10 MG/2 ML VIAL IV SCH ×3 (05:08→21:28)
[2017-05-29] MEDS: diphenhydrAMINE HCL 50 MG/ML VIAL IV PRN ×2 (05:21→21:29)
[2017-05-29] MEDS: BLOOD SUGAR DIAGNOSTIC 1 EACH STRIP IN SCH ×4 (05:27→17:15)
[2017-05-29 05:53] LABS: BASOPHILS # (AUTO) 0.1 /CMM (0.0-0.2); BASOPHILS % (AUTO) 0.5 % (0.0-2.0); EOSINOPHILS # (AUTO) 0.4 /CMM (0.0-0.7); EOSINOPHILS % (AUTO) 2.2 % (0.0-6.0); HEMATOCRIT 24 % (33-45); HEMOGLOBIN 8.4 g/dL (11.5-14.8); LYMPHOCYTES % (AUTO) 11.4 % (20.0-44.0); MEAN CORPUSCULAR HEMOGLOBIN 30 PG (26.0-33.0); MEAN CORPUSCULAR HGB CONC 35 g/dl (31.0-36.0); MEAN CORPUSCULAR VOLUME 87 fL (82-100); MONOCYTES # (AUTO) 1.7 /CMM (0.1-1.30); MONOCYTES % (AUTO) 9.9 % (2.0-12.0); PLATELET COUNT (AUTO) 92 /CMM (150-450); RDW COEFFICIENT OF VARIATION 15.7 (11.5-15.0); RED BLOOD CELL COUNT(AUTO) 2.79 MIL/uL (4.0-5.2); WHITE BLOOD COUNT (AUTO) 17.2 K/uL (4.3-11.0)
[2017-05-29 06:11] LABS: ALANINE AMINOTRANSFERASE 11 U/L (12-78); ALBUMIN 1.5 g/dL (3.4-5.0); ALKALINE PHOSPHATASE 92 U/L (46-116); ASPARTATE AMINOTRANSFERASE 19 U/L (15-37); BILIRUBIN,TOTAL 1.1 mg/dL (0.2-1.0); CALCIUM, SERUM 7.1 mg/dL (8.5-10.1); CARBON DIOXIDE 24 mmol/L (21-32); CHLORIDE 108 mmol/L (98-107); CREATININE 1.7 mg/dL (0.6-1.3); GLUCOSE 121 mg/dL (74-106); MAGNESIUM 1.4 mg/dL (1.8-2.4); PHOSPHORUS 4.5 mg/dL (2.5-4.9); POTASSIUM 4.3 mmol/L (3.5-5.1); SODIUM SERUM 139 mmol/L (136-145); TOTAL PROTEIN, SERUM 3.6 g/dL (6.4-8.2); UREA NITROGEN, BLOOD 34 mg/dL (7-18)
--- NOTE | 2017-05-29 06:22 | NUR ---
MALE PT INTUBATED ON ORDERED VENT SETTINGS. INES WELL, NO S/S OF SOB NOTED. ALARMS SET & AUDIBLE THROUGHOUT ICU UNIT. MECHANICAL VENTILATOR PLUGGED IN TO RED OUTLET. BILATERAL CHEST RISE OBSERVED. WILL CONTINUE TO MONITOR Addendum: 05/29/17 at 06 by MILADY LEDEZMA RT Amended: Links added. Addendum: 05/29/17 at 0623 by MILADY LEDEZMA RT FEMALE NOT MALE
--- NOTE | 2017-05-29 06:30 | NUR ---
TAX REPRESENTATIVE - PT. HAD 3 BOUTS OF MELENA W/BEDBATHS ADM. ALL GTTS INFUSING WELL. AFEBRILE. AFIB CONT. ON HEART MONITOR. NPO. PEG TO LIS W/100CC OF DK RED BLOOD REMOVED. PT. NEEDS CONT. SXING. THICK YELLOW SPUTUM EXPELLED. BENADRYL ADM. AT 5 AM FOR PRURITIS. ONE UNIT OF PRBC'S INFUSING WELL. 6AM H/H IS 8.4/24. CONT. POC. REPORT ENDORSED TO ED JOHNSON RN.
[2017-05-29] MEDS: IV D5/0.45 NACL 1,000 ML IV PRN (07:20)
[2017-05-29] MEDS: OCTREOTIDE 1,250 MCG in IV NS 0.9% 247.5 ML IV PRN (07:23)
--- NOTE | 2017-05-29 07:34 | NUR ---
ICU/RN - Initial Notes Received pt in bed, trach to mechanical vent with settings as ordered. No s/s or respiratory distress. Pt alert x1-2, reorientation provided. On tele reading Afib 90-100's. GT to low intermittent suction, with sanguineous drainage noted. PICC line RYLEE patent and intact with IVF infusing well. Levophed gtt titrated accordingly. Safety and comfort measures in place. Will continue to monitor pt closely.
[2017-05-29] MEDS: HYDROGEL DRESSING 90 GM TUBE TP SCH (08:26)
[2017-05-29] MEDS: MUPIROCIN OINT 2% 22 GM TUBE SCH ×2 (08:26→21:29)
[2017-05-29] MEDS ORDERED: DESMOPRESSIN 20 MCG in IV NS 0.9% 50 ML IV ONE ×4 (11:00)
[2017-05-29] MEDS ORDERED: Magnesium 1GM/D5W 100ML PREMIX 100 ML IV SCH (11:00)
[2017-05-29] MEDS ORDERED: EPOETIN ALFA (20,000 UNIT) 20,000 UNIT/ML VIAL SQ ONE (11:00)
[2017-05-29 12:02] LABS: BASOPHILS % (AUTO) 0.2 % (0.0-2.0); EOSINOPHILS # (AUTO) 0.2 /CMM (0.0-0.7); EOSINOPHILS % (AUTO) 1.3 % (0.0-6.0); LYMPHOCYTES # (AUTO) 1.4 /CMM (0.8-4.8); LYMPHOCYTES % (AUTO) 8.7 % (20.0-44.0); MEAN CORPUSCULAR HEMOGLOBIN 30 PG (26.0-33.0); MEAN CORPUSCULAR HGB CONC 35 g/dl (31.0-36.0); MEAN CORPUSCULAR VOLUME 87 fL (82-100); MONOCYTES # (AUTO) 1.2 /CMM (0.1-1.30); MONOCYTES % (AUTO) 7.7 % (2.0-12.0); NEUTROPHILS # (AUTO) 12.9 /CMM (1.8-8.9); NEUTROPHILS % (AUTO) 82.1 % (43.0-81.0); PLATELET COUNT (AUTO) 88 /CMM (150-450); RDW COEFFICIENT OF VARIATION 16.2 (11.5-15.0); RED BLOOD CELL COUNT(AUTO) 2.32 MIL/uL (4.0-5.2); WHITE BLOOD COUNT (AUTO) 15.7 K/uL (4.3-11.0)
[2017-05-29 12:05] LABS: HEMATOCRIT 20 % (33-45)
[2017-05-29 13:38] LABS: EOSINOPHILS % (MANUAL) 2 % (0-4); LYMPHOCYTES % (MANUAL) 7 % (16-48); MONOCYTES % (MANUAL) 2 % (0-11.0); NEUTROPHILS % (MANUAL) 89 (42-76)
[2017-05-29] MEDS: ALBUMIN 25% 25 GM in PREMIX 1 EA IV PRN (13:46)
--- NOTE | 2017-05-29 13:55 | NUR ---
ICU/RN - Notes Call made to blood bank following up on PRBC unit, per lab not available at this time.
--- NOTE | 2017-05-29 15:15 | NUR ---
ICU/RN - Notes Several phone calls made to blood bank following up on PRBC unit ordered STAT 3 hours ago. Per blood bank, blood is still not available at this time.
--- NOTE | 2017-05-29 15:45 | NUR ---
ICU/RN - Notes Hemodialysis completed with 1800 mL output. Levophed titrated up during hemodialysis to achieve optimal blood pressure during session. Will continue to monitor.
--- NOTE | 2017-05-29 16:00 | NUR ---
ICU/RN - Notes PRBC transfusion started at this time. Vital signs monitored. Will monitor for any s/s of adverse reactions.
--- NOTE | 2017-05-29 18:45 | NUR ---
ICU/RN - Notes Blood transfusion completed with no s/s of adverse reactions.
[2017-05-29 21:37] LABS: BASOPHILS % (AUTO) 0.2 % (0.0-2.0); EOSINOPHILS # (AUTO) 0.3 /CMM (0.0-0.7); EOSINOPHILS % (AUTO) 1.9 % (0.0-6.0); LYMPHOCYTES # (AUTO) 1.4 /CMM (0.8-4.8); LYMPHOCYTES % (AUTO) 7.5 % (20.0-44.0); MEAN CORPUSCULAR HEMOGLOBIN 31 PG (26.0-33.0); MEAN CORPUSCULAR HGB CONC 36 g/dl (31.0-36.0); MEAN CORPUSCULAR VOLUME 87 fL (82-100); MONOCYTES # (AUTO) 1.5 /CMM (0.1-1.30); MONOCYTES % (AUTO) 8.2 % (2.0-12.0); NEUTROPHILS # (AUTO) 14.8 /CMM (1.8-8.9); NEUTROPHILS % (AUTO) 82.2 % (43.0-81.0); PLATELET COUNT (AUTO) 54 /CMM (150-450); RDW COEFFICIENT OF VARIATION 15.4 (11.5-15.0); RED BLOOD CELL COUNT(AUTO) 2.27 MIL/uL (4.0-5.2)
[2017-05-29 21:42] LABS: HEMATOCRIT 20 % (33-45)
[2017-05-29 21:43] LABS: HEMOGLOBIN 7.1 g/dL (11.5-14.8)
[2017-05-30] VITALS (94 sets, daily range): BP systolic 76–147; BP diastolic 37–93
[2017-05-30] MEDS: LEVETIRACETAM (500MG) 500 MG in IV NS 0.9% 100 ML IV SCH ×3 (00:47→23:56)
[2017-05-30] MEDS: ONDANSETRON HCL/PF 4 MG/2 ML VIAL IV SCH ×3 (00:47→11:02)
[2017-05-30] MEDS: INSULIN REGULAR, HUMAN 100 UNIT/ML 3 ML VIAL SQ PRN ×3 (00:56→18:46)
[2017-05-30] MEDS: BLOOD SUGAR DIAGNOSTIC 1 EACH STRIP IN SCH ×5 (01:03→23:55)
[2017-05-30 01:22] LABS: BAND % (MANUAL) 4 % (0.0-5.0); LYMPHOCYTES % (MANUAL) 4 % (16-48); MONOCYTES % (MANUAL) 4 % (0-11.0); NEUTROPHILS % (MANUAL) 88 (42-76)
[2017-05-30 05:24] LABS: ALANINE AMINOTRANSFERASE 13 U/L (12-78); ALBUMIN 1.5 g/dL (3.4-5.0); ALKALINE PHOSPHATASE 76 U/L (46-116); ASPARTATE AMINOTRANSFERASE 29 U/L (15-37); BILIRUBIN,TOTAL 0.9 mg/dL (0.2-1.0); CALCIUM, SERUM 7.1 mg/dL (8.5-10.1); CARBON DIOXIDE 21 mmol/L (21-32); CHLORIDE 108 mmol/L (98-107); CREATININE 1.9 mg/dL (0.6-1.3); GLUCOSE 87 mg/dL (74-106); MAGNESIUM 1.5 mg/dL (1.8-2.4); PHOSPHORUS 4.9 mg/dL (2.5-4.9); POTASSIUM 4.5 mmol/L (3.5-5.1); SODIUM SERUM 138 mmol/L (136-145); TOTAL PROTEIN, SERUM 3.2 g/dL (6.4-8.2); UREA NITROGEN, BLOOD 35 mg/dL (7-18)
--- NOTE | 2017-05-30 05:25 | NUR ---
PT STABLE ON DR ORDERED VENT SETTINGS. INES WELL, NO S/S OF SOB NOTED. ALARMS SET & AUDIBLE THROUGHOUT ICU UNIT. MECHANICAL VENTILATOR PLUGGED IN TO RED OUTLET. RUFINO AT H.O.B. BILATERAL CHEST RISE OBSERVED. WILL CONTINUE TO MONITOR Addendum: 05/30/17 at 0525 by MILADY LEDEZMA RT Amended: Links added.
[2017-05-30 05:31] LABS: BASOPHILS % (AUTO) 0.2 % (0.0-2.0); EOSINOPHILS # (AUTO) 0.5 /CMM (0.0-0.7); EOSINOPHILS % (AUTO) 3.1 % (0.0-6.0); HEMOGLOBIN 7.1 g/dL (11.5-14.8); LYMPHOCYTES # (AUTO) 1.2 /CMM (0.8-4.8); LYMPHOCYTES % (AUTO) 7.5 % (20.0-44.0); MEAN CORPUSCULAR HEMOGLOBIN 31 PG (26.0-33.0); MEAN CORPUSCULAR HGB CONC 35 g/dl (31.0-36.0); MEAN CORPUSCULAR VOLUME 89 fL (82-100); MONOCYTES # (AUTO) 1.4 /CMM (0.1-1.30); NEUTROPHILS # (AUTO) 12.8 /CMM (1.8-8.9); NEUTROPHILS % (AUTO) 80.2 % (43.0-81.0); PLATELET COUNT (AUTO) 57 /CMM (150-450); RDW COEFFICIENT OF VARIATION 15.1 (11.5-15.0); RED BLOOD CELL COUNT(AUTO) 2.27 MIL/uL (4.0-5.2); WHITE BLOOD COUNT (AUTO) 15.9 K/uL (4.3-11.0)
[2017-05-30 06:10] LABS: HEMATOCRIT 20 % (33-45)
[2017-05-30] MEDS: METOCLOPRAMIDE HCL 10 MG/2 ML VIAL IV SCH ×3 (06:16→22:10)
[2017-05-30] MEDS: NOREPINEPHRINE 16 MG in IV D5W 500 ML IV PRN ×2 (06:17→22:10)
--- NOTE | 2017-05-30 06:30 | NUR ---
LAYOUT INSPECTOR - PT.REMAINS ON AC-14,TV-500 & 35% W/O2 SATS @100%. PT'S SON WAS AT BS TILL MN. LUE PICC LINE HAS LEVOPHED INFUSING AT 16 MCG/MIN., D5-1/2NS AT 40CC/HR, PROTONIX GTT. AT 50CC/HR & SANDOSTATIN AT 10CC/HR. ALL PORTS ARE PATENT TO FLUSH. PT.WAS GIVEN 4 BEDBATHS TOTAL FOR MOD. TO LARGE AMTS OF FRESH BLOOD/MELENA STOOLS. PT. WAS TX'D ONE UNIT OF PRBC'S AT 2300. PT.HAS ONE UNIT OF PRBC'S ORDERED AT 06:15 FOR H&H OF 7.06/18. PT. REMAINS DNR STATUS. PEG TO LIS SX HAD 150 CC GASTRIC BLOODY CONTENTS EXPELLED.HEART MONITOR SHOWS UNCONT. AFIB IN THE TEENS & 120'S. CONT. POC. REPORT ENDORSED TO ED JOHNSON RN.
[2017-05-30 06:31] LABS: EOSINOPHILS % (MANUAL) 4 % (0-4); LYMPHOCYTES % (MANUAL) 5 % (16-48); MONOCYTES % (MANUAL) 5 % (0-11.0); NEUTROPHILS % (MANUAL) 86 (42-76)
[2017-05-30] MEDS: PANTOPRAZOLE 80 MG in IV NS 0.9% 500 ML IV PRN ×2 (07:25→16:50)
[2017-05-30] MEDS: OCTREOTIDE 1,250 MCG in IV NS 0.9% 247.5 ML IV PRN (07:25)
--- NOTE | 2017-05-30 07:53 | NUR ---
RT PATIENT REC'D TRACHED ON [facility] VENT WITH SETTINGS SET BY MD INES UMANZOR. VENT ALARMS CHECKED + AUDIBLE. CUFF PRESSURE CHECKED SURVEILLANCE SYSTEMS ENGINEER. SX'D WITH SMALL AMT PALE SEMITHICK SECRETIONS. B/S GILLES. ANNETTEU BAG AT HOB. Addendum: 05/30/17 at 1112 by GRISEL ADHIKARI RT Amended: Links added.
--- NOTE | 2017-05-30 08:19 | NUR ---
ICU/RN - Notes PRBC transfusion started at this time. Vital signs monitored. Will monitor for any s/s of adverse reactions.
[2017-05-30] MEDS: HYDROGEL DRESSING 90 GM TUBE TP SCH (08:24)
[2017-05-30] MEDS: MUPIROCIN OINT 2% 22 GM TUBE SCH ×2 (08:24→22:12)
[2017-05-30] MEDS: diphenhydrAMINE HCL 50 MG/ML VIAL IV PRN (08:29)
[2017-05-30] MEDS: IV D5/0.45 NACL 1,000 ML IV PRN (08:30)
--- NOTE | 2017-05-30 11:35 | NUR ---
ICU/RN - Notes Blood transfusion completed with no s/s of adverse reactions.
--- NOTE | 2017-05-30 13:04 | NUR ---
ICU/RN - Notes Pt complains of nausea with bright red emesis x1 noted. Zofran and Reglan IVP given. Dr Quinones aware.
--- NOTE | 2017-05-30 13:50 | NUR ---
ICU/RN - Notes Follow up with case coordinator Brenna at this time regarding pt's transfer to tertiary facility. Per case coordinator, still awaiting bed at this time. Pt's son Scotty made aware and provided number to case coordinator directly.
[2017-05-30 13:52] LABS: BASOPHILS # (AUTO) 0.1 /CMM (0.0-0.2); BASOPHILS % (AUTO) 0.3 % (0.0-2.0); EOSINOPHILS # (AUTO) 0.2 /CMM (0.0-0.7); EOSINOPHILS % (AUTO) 1.2 % (0.0-6.0); HEMATOCRIT 21 % (33-45); HEMOGLOBIN 7.3 g/dL (11.5-14.8); LYMPHOCYTES # (AUTO) 1.4 /CMM (0.8-4.8); LYMPHOCYTES % (AUTO) 7.6 % (20.0-44.0); MEAN CORPUSCULAR HEMOGLOBIN 30 PG (26.0-33.0); MEAN CORPUSCULAR HGB CONC 34 g/dl (31.0-36.0); MEAN CORPUSCULAR VOLUME 86 fL (82-100); MONOCYTES # (AUTO) 1.5 /CMM (0.1-1.30); MONOCYTES % (AUTO) 8.3 % (2.0-12.0); NEUTROPHILS # (AUTO) 15.5 /CMM (1.8-8.9); NEUTROPHILS % (AUTO) 82.6 % (43.0-81.0); PLATELET COUNT (AUTO) 59 /CMM (150-450); RDW COEFFICIENT OF VARIATION 15.9 (11.5-15.0); RED BLOOD CELL COUNT(AUTO) 2.46 MIL/uL (4.0-5.2); WHITE BLOOD COUNT (AUTO) 18.7 K/uL (4.3-11.0)
--- NOTE | 2017-05-30 15:36 | NUR ---
ICU/RN - Notes PRBC transfusion started at this time. Vital signs monitored. Will monitor for any s/s of adverse reactions.
--- NOTE | 2017-05-30 16:27 | NUR ---
ICU/RN - Notes Pt noted with several episodes of bloody emesis. ~400mL of bright red blood. Ilana Tolentino TIRE MAKER aware and spoke with family at updated on plan of care at bedside. Received orders to stop Zofran and start pt on Phenergran IVP. Will carry out. Addendum: 05/30/17 at 1632 by INOCENTE ARRIOLA RN Pt is awake and alert and able to make need known, despite several episodes of emesis.
[2017-05-30] MEDS ORDERED: PROMETHAZINE HCL 25 MG/ML AMPUL IV PRN (16:30)
--- NOTE | 2017-05-30 18:20 | NUR ---
ICU/RN - Notes Blood transfusion completed with no s/s of adverse reactions.
--- NOTE | 2017-05-30 18:45 | NUR ---
ICU/RN - Notes Pt continues to have bloody emesis. x1 bloody stool. Phenergran IVP given as ordered for n/v. Family at bedside.
[2017-05-30 18:50] LABS: BASOPHILS % (AUTO) 0.1 % (0.0-2.0); EOSINOPHILS # (AUTO) 0.1 /CMM (0.0-0.7); EOSINOPHILS % (AUTO) 0.6 % (0.0-6.0); HEMATOCRIT 22 % (33-45); HEMOGLOBIN 7.9 g/dL (11.5-14.8); LYMPHOCYTES # (AUTO) 1.4 /CMM (0.8-4.8); LYMPHOCYTES % (AUTO) 8.2 % (20.0-44.0); MEAN CORPUSCULAR HEMOGLOBIN 30 PG (26.0-33.0); MEAN CORPUSCULAR HGB CONC 35 g/dl (31.0-36.0); MEAN CORPUSCULAR VOLUME 86 fL (82-100); MONOCYTES # (AUTO) 1.2 /CMM (0.1-1.30); MONOCYTES % (AUTO) 7.3 % (2.0-12.0); NEUTROPHILS % (AUTO) 83.8 % (43.0-81.0); PLATELET COUNT (AUTO) 61 /CMM (150-450); RDW COEFFICIENT OF VARIATION 15.5 (11.5-15.0); WHITE BLOOD COUNT (AUTO) 16.7 K/uL (4.3-11.0)
--- NOTE | 2017-05-30 19:45 | NUR ---
RN INITIAL NOTE RECEIVED PT IN NO ACUTE DISTRESS IN BED. PT IS A/O X 3 AND ABLE TO MOUTH WORDS. PT IS ON O2 VIA MECHANICAL VENT VIA TRACH. TRACH SITE IS CLEAN DRY INTACT AND PATENT WITH O2 SAT @ 100%. PT NOT C/O ANY SOB, DIFFICULTY BREATHING OR PAIN AT THIS TIME. PT HAD X1 BLOODY VOMIT PER AM RN AND MULTIPLE BLOODY STOOLS. PT HAS RYLEE PICC THAT IS CLEAN DRY INTACT AND PATENT. BED IN LOW LOCK POSITION WITH RIALS UP X 2. CALL LIGHT WITHIN REACH AND ALL SAFETY MEASURES ENSURED AND CARRIED OUT. WILL CONTINUE TO MONITOR PT.
[2017-05-30] MEDS ORDERED: IV NS 0.9% 250 ML IV PRN (21:00)
[2017-05-31] VITALS (122 sets, daily range): BP systolic 58–126; BP diastolic 29–83
[2017-05-31 01:27] LABS: BASOPHILS % (AUTO) 0.2 % (0.0-2.0); EOSINOPHILS # (AUTO) 0.1 /CMM (0.0-0.7); EOSINOPHILS % (AUTO) 0.3 % (0.0-6.0); HEMATOCRIT 23 % (33-45); HEMOGLOBIN 8.3 g/dL (11.5-14.8); LYMPHOCYTES # (AUTO) 1.2 /CMM (0.8-4.8); LYMPHOCYTES % (AUTO) 5.5 % (20.0-44.0); MEAN CORPUSCULAR HEMOGLOBIN 31 PG (26.0-33.0); MEAN CORPUSCULAR HGB CONC 36 g/dl (31.0-36.0); MEAN CORPUSCULAR VOLUME 87 fL (82-100); MONOCYTES # (AUTO) 0.9 /CMM (0.1-1.30); MONOCYTES % (AUTO) 4.1 % (2.0-12.0); NEUTROPHILS # (AUTO) 19.1 /CMM (1.8-8.9); NEUTROPHILS % (AUTO) 89.9 % (43.0-81.0); PLATELET COUNT (AUTO) 60 /CMM (150-450); RDW COEFFICIENT OF VARIATION 15.3 (11.5-15.0); RED BLOOD CELL COUNT(AUTO) 2.65 MIL/uL (4.0-5.2); WHITE BLOOD COUNT (AUTO) 21.3 K/uL (4.3-11.0)
[2017-05-31 01:52] LABS: BAND % (MANUAL) 5 % (0.0-5.0); LYMPHOCYTES % (MANUAL) 7 % (16-48); MONOCYTES % (MANUAL) 3 % (0-11.0); NEUTROPHILS % (MANUAL) 85 (42-76)
[2017-05-31] MEDS: PANTOPRAZOLE 80 MG in IV NS 0.9% 500 ML IV PRN ×3 (02:41→20:52)
[2017-05-31] MEDS: METOCLOPRAMIDE HCL 10 MG/2 ML VIAL IV SCH ×3 (05:30→21:03)
[2017-05-31] MEDS: BLOOD SUGAR DIAGNOSTIC 1 EACH STRIP IN SCH ×3 (05:30→18:43)
--- NOTE | 2017-05-31 06:26 | NUR ---
RN CLOSING NOTE PT REMAINS IN NO ACUTE DISTRESS IN BED. PT IS S/P 1 UNIT PRBC WITH HGB 8.3. AWAITING MORNING LABS. PT HAD MULTIPLE BLOODY STOOLS AND X2 BLOODY VOMIT DURING SHIFT. ALL NEEDS MET, ALL ORDERS CARRIED OUT. WILL ENDORSE CARE TO AM RN FOR CONTINUITY OF CARE.
[2017-05-31 07:03] LABS: BASOPHILS # (AUTO) 0.1 /CMM (0.0-0.2); BASOPHILS % (AUTO) 0.3 % (0.0-2.0); EOSINOPHILS # (AUTO) 0.1 /CMM (0.0-0.7); EOSINOPHILS % (AUTO) 0.3 % (0.0-6.0); LYMPHOCYTES % (AUTO) 3.6 % (20.0-44.0); MEAN CORPUSCULAR HEMOGLOBIN 31 PG (26.0-33.0); MEAN CORPUSCULAR HGB CONC 35 g/dl (31.0-36.0); MEAN CORPUSCULAR VOLUME 87 fL (82-100); MONOCYTES # (AUTO) 1.5 /CMM (0.1-1.30); MONOCYTES % (AUTO) 5.4 % (2.0-12.0); NEUTROPHILS # (AUTO) 25.4 /CMM (1.8-8.9); NEUTROPHILS % (AUTO) 90.4 % (43.0-81.0); PLATELET COUNT (AUTO) 55 /CMM (150-450); RDW COEFFICIENT OF VARIATION 15.3 (11.5-15.0); RED BLOOD CELL COUNT(AUTO) 2.24 MIL/uL (4.0-5.2); WHITE BLOOD COUNT (AUTO) 28.1 K/uL (4.3-11.0)
[2017-05-31 07:20] LABS: HEMATOCRIT 20 % (33-45); HEMOGLOBIN 6.9 g/dL (11.5-14.8)
[2017-05-31] MEDS: IV D5/0.45 NACL 1,000 ML IV PRN (07:33)
[2017-05-31 07:45] LABS: CALCIUM, SERUM 7.3 mg/dL (8.5-10.1); CARBON DIOXIDE 15 mmol/L (21-32); CHLORIDE 106 mmol/L (98-107); CREATININE 2.2 mg/dL (0.6-1.3); GLUCOSE 161 mg/dL (74-106); MAGNESIUM 1.4 mg/dL (1.8-2.4); PHOSPHORUS 6.1 mg/dL (2.5-4.9); POTASSIUM 4.5 mmol/L (3.5-5.1); SODIUM SERUM 133 mmol/L (136-145); UREA NITROGEN, BLOOD 40 mg/dL (7-18)
--- NOTE | 2017-05-31 08:12 | NUR ---
PT RECEIVED ON [facility] VENT WITH NOTED SETTING PER MD. VENT ALARMS CHECKED AND AUDIBLE, MATERIAL COORDINATOR DONE. VENT PLUGGED INTO RED OUTLET. AMBUBAG AT BEDSIDE. NO SOB OR RESP DISTRESS NOTED. PT SX'ED AND LAVAGED PRN. TRACH TUBE SECURED AND PATENT. BREATH SOUNDS EQUAL DIMINISHED. PLAN IS TO CONTINUE CURRENT CARE UNDER MD ORDERS AND MONITOR PT FOR CHANGES Addendum: 05/31/17 at 0812 by LIDIA HUMPHREY RT Amended: Links added.
[2017-05-31] MEDS: ALBUMIN 25% 25 GM in PREMIX 1 EA IV PRN (08:23)
[2017-05-31] MEDS: HYDROGEL DRESSING 90 GM TUBE TP SCH (10:07)
[2017-05-31] MEDS: MUPIROCIN OINT 2% 22 GM TUBE SCH ×2 (10:07→21:04)
[2017-05-31] MEDS: OCTREOTIDE 1,250 MCG in IV NS 0.9% 247.5 ML IV PRN (11:13)
[2017-05-31] MEDS: LEVETIRACETAM (500MG) 500 MG in IV NS 0.9% 100 ML IV SCH ×2 (11:54→23:43)
[2017-05-31 12:07] LABS: BAND % (MANUAL) 13 % (0.0-5.0); LYMPHOCYTES % (MANUAL) 3 % (16-48); MONOCYTES % (MANUAL) 5 % (0-11.0); NEUTROPHILS % (MANUAL) 79 (42-76)
[2017-05-31] MEDS ORDERED: Magnesium 1GM/D5W 100ML PREMIX 100 ML IV SCH (12:07)
[2017-05-31] MEDS ORDERED: EPOETIN ALFA (10,000 UNIT) 10,000 UNIT/ML VIAL SQ ONE (12:30)
[2017-05-31] MEDS ORDERED: DESMOPRESSIN 4 MCG/ML AMPUL SQ ONE (12:30)
[2017-05-31] MEDS ORDERED: DIGOXIN INJ 0.5 MG/2 ML AMPUL IV ONE (12:30)
[2017-05-31] MEDS: PHENYLEPHRINE 80 MG in IV D5W 250 ML IV PRN ×3 (12:34→21:39)
[2017-05-31] MEDS: Magnesium 1GM/D5W 100ML PREMIX 100 ML IV SCH ×2 (12:35→14:05)
[2017-05-31 13:09] LABS: HEMOGLOBIN 11.1 g/dL (11.5-14.8)
--- NOTE | 2017-05-31 14:30 | NUR ---
LAWN SERVICE WORKER INITIAL NOTE RECEIVED PT FROM GISELLA RN. PT IN BED, VENT TRACH, A/A/O X2. LUNG SOUNDS DIMINISHED. BOWEL SOUNDS ABSENT. PT ANURIC. PT HAVING WATERY DIARRHEA AND GT CONNECTED TO LIS WITH DARK RED BLOOD IN CANISTER. IV PATENT AND INTACT WITH MULTIPLE MEDICATIONS. FAMILY AT BEDSIDE SPEAKING WITH DR OBANDO REGARDING PROGNOSIS. WILL CONTINUE TO MONITOR.
[2017-05-31] MEDS ORDERED: DDAVP 20 MCG in IV NS 50 ML IV ONE (15:00)
[2017-05-31] MEDS: NOREPINEPHRINE 16 MG in IV D5W 500 ML IV PRN ×2 (15:21→22:10)
--- NOTE | 2017-05-31 16:20 | NUR ---
GRINDING OPERATOR PT CLEANED AND REPOSITIONED FOR COMFORT. PT HAD LOOSE BLOODY STOOL. SACRAL DRESSING CHANGED. ABDOMEN IS HARD AND DISTENDED. WILL CONTINUE TO MONITOR.
--- NOTE | 2017-05-31 17:18 | NUR ---
LITHOGRAPHIC PRESS OPERATOR APPRENTICE RECEIVED PT FROM AM SHIFT AT 0800 PT IS AWAKE ALERT HEMOGLOBIN 6.9 ORDERED 2UNITS OF PRBC STAT, HD STARTED OK TO GIVE BOTH UNITS WITH HD P/MD, AFTER 2ND UNIT GIVEN PT SBP STILL LOW MD DR. HAN AT BEDSIDE ORDERED 2UNITS OF PRBC RAPIC TRANSFUSION WITH HD ALL 4 UNITS GIVEN HEMOGLOBIN ELIZABETH ABOVE 11.0, PT IS ON VENT SBP AT TIMES AT 80S PT IS AWAKE NO DISTRESS, PT HAS LOW CONTINUOUS SUCTIONING FROM GT WITH BLOODY DISCHARGE MD PAWEL BRIAN MD PUT ORDERS ORDERS FOLLOWED, JAMIE CARE DONE 3X PT HAS BLACK BLOODY STOOLS, FAMILY AT BEDSIDE MDS EXPLAINED PT CONDITION IS GUARDED. AT 1430 REPORT GIVEN TO SEVERINO VIERA FOR CONTINUITY OF CARE.
[2017-05-31 18:46] LABS: BASOPHILS # (AUTO) 0.1 /CMM (0.0-0.2); BASOPHILS % (AUTO) 0.4 % (0.0-2.0); EOSINOPHILS # (AUTO) 0.1 /CMM (0.0-0.7); EOSINOPHILS % (AUTO) 0.2 % (0.0-6.0); HEMATOCRIT 27 % (33-45); HEMOGLOBIN 9.5 g/dL (11.5-14.8); LYMPHOCYTES % (AUTO) 4.1 % (20.0-44.0); MEAN CORPUSCULAR HEMOGLOBIN 30 PG (26.0-33.0); MEAN CORPUSCULAR HGB CONC 35 g/dl (31.0-36.0); MEAN CORPUSCULAR VOLUME 86 fL (82-100); MONOCYTES # (AUTO) 0.8 /CMM (0.1-1.30); MONOCYTES % (AUTO) 3.2 % (2.0-12.0); NEUTROPHILS # (AUTO) 23.2 /CMM (1.8-8.9); NEUTROPHILS % (AUTO) 92.1 % (43.0-81.0); RDW COEFFICIENT OF VARIATION 15.3 (11.5-15.0); RED BLOOD CELL COUNT(AUTO) 3.15 MIL/uL (4.0-5.2); WHITE BLOOD COUNT (AUTO) 25.2 K/uL (4.3-11.0)
[2017-05-31 18:49] LABS: PLATELET COUNT (AUTO) 35 /CMM (150-450)
--- NOTE | 2017-05-31 18:50 | NUR ---
ELECTRONIC COURT RECORDER NEW ORDER RECEIVED FOR ATIVAN. PT HAS A DOCUMENTED ALLERGY FOR ATIVAN. FAMILY SAYS SHE HAS HALLUCINATED IN THE PAST. DR ARMAS AWARE AND SAYS OKAY TO USE ATIVAN. WILL CARRY OUT ORDER.
[2017-05-31] MEDS ORDERED: LORAZEPAM INJ 2 MG/ML VIAL IV PRN (19:00)
[2017-05-31] MEDS: LORAZEPAM INJ 2 MG/ML VIAL IV PRN (19:19)
[2017-05-31 19:41] LABS: BAND % (MANUAL) 21 % (0.0-5.0); LYMPHOCYTES % (MANUAL) 6 % (16-48); MONOCYTES % (MANUAL) 10 % (0-11.0); MYELOCYTES % 1 % (0-0); NEUTROPHILS % (MANUAL) 62 (42-76)
--- NOTE | 2017-05-31 21:00 | NUR ---
FIRST LINE PRODUCTION SUPERVISOR PT BP LOW. DR ARMAS CALLED. ORDERS RECEIVED FOR VASOPRESSIN. WILL CONTINUE TO MONITOR.
[2017-05-31] MEDS ORDERED: VASOPRESSIN INJ 20 UNIT/ML VIAL ONE (21:17)
[2017-05-31] MEDS: VASOPRESSIN INJ 50 UNIT in IV D5W 497.5 ML IV PRN (21:23)
[2017-05-31 23:03] LABS: BASOPHILS % (AUTO) 0.3 % (0.0-2.0); EOSINOPHILS % (AUTO) 0.1 % (0.0-6.0); HEMATOCRIT 25 % (33-45); HEMOGLOBIN 8.3 g/dL (11.5-14.8); LYMPHOCYTES # (AUTO) 0.9 /CMM (0.8-4.8); MEAN CORPUSCULAR HEMOGLOBIN 30 PG (26.0-33.0); MEAN CORPUSCULAR HGB CONC 34 g/dl (31.0-36.0); MEAN CORPUSCULAR VOLUME 89 fL (82-100); MONOCYTES # (AUTO) 0.8 /CMM (0.1-1.30); MONOCYTES % (AUTO) 4.2 % (2.0-12.0); NEUTROPHILS # (AUTO) 16.6 /CMM (1.8-8.9); NEUTROPHILS % (AUTO) 90.4 % (43.0-81.0); RDW COEFFICIENT OF VARIATION 16.3 (11.5-15.0); RED BLOOD CELL COUNT(AUTO) 2.74 MIL/uL (4.0-5.2); WHITE BLOOD COUNT (AUTO) 18.4 K/uL (4.3-11.0)
[2017-05-31 23:06] LABS: PLATELET COUNT (AUTO) 36 /CMM (150-450)
[2017-05-31 23:49] LABS: BAND % (MANUAL) 24 % (0.0-5.0); LYMPHOCYTES % (MANUAL) 7 % (16-48); METAMYELOCYTES % 1 % (0-0); MONOCYTES % (MANUAL) 6 % (0-11.0); MYELOCYTES % 1 % (0-0); NEUTROPHILS % (MANUAL) 61 (42-76)
[2017-06-01] VITALS (49 sets, daily range): BP systolic 26–80; BP diastolic 11–65
[2017-06-01] MEDS: INSULIN REGULAR, HUMAN 100 UNIT/ML 3 ML VIAL SQ PRN ×2 (00:02→05:42)
[2017-06-01] MEDS: PHENYLEPHRINE 80 MG in IV D5W 250 ML IV PRN ×3 (01:29→10:21)
[2017-06-01 02:35] LABS: BASOPHILS % (AUTO) 0.2 % (0.0-2.0); EOSINOPHILS % (AUTO) 0.2 % (0.0-6.0); HEMATOCRIT 22 % (33-45); HEMOGLOBIN 7.7 g/dL (11.5-14.8); LYMPHOCYTES # (AUTO) 0.8 /CMM (0.8-4.8); LYMPHOCYTES % (AUTO) 5.4 % (20.0-44.0); MEAN CORPUSCULAR HEMOGLOBIN 31 PG (26.0-33.0); MEAN CORPUSCULAR HGB CONC 34 g/dl (31.0-36.0); MEAN CORPUSCULAR VOLUME 90 fL (82-100); MONOCYTES # (AUTO) 0.4 /CMM (0.1-1.30); MONOCYTES % (AUTO) 2.6 % (2.0-12.0); NEUTROPHILS % (AUTO) 91.6 % (43.0-81.0); RDW COEFFICIENT OF VARIATION 16.7 (11.5-15.0); WHITE BLOOD COUNT (AUTO) 15.3 K/uL (4.3-11.0)
[2017-06-01 02:50] LABS: PLATELET COUNT (AUTO) 31 /CMM (150-450)
[2017-06-01 05:14] LABS: BASOPHILS % (AUTO) 0.2 % (0.0-2.0); EOSINOPHILS % (AUTO) 0.1 % (0.0-6.0); HEMATOCRIT 22 % (33-45); HEMOGLOBIN 7.4 g/dL (11.5-14.8); LYMPHOCYTES # (AUTO) 0.8 /CMM (0.8-4.8); LYMPHOCYTES % (AUTO) 5.5 % (20.0-44.0); MEAN CORPUSCULAR HEMOGLOBIN 30 PG (26.0-33.0); MEAN CORPUSCULAR HGB CONC 34 g/dl (31.0-36.0); MEAN CORPUSCULAR VOLUME 91 fL (82-100); MONOCYTES # (AUTO) 0.3 /CMM (0.1-1.30); MONOCYTES % (AUTO) 1.9 % (2.0-12.0); NEUTROPHILS # (AUTO) 12.7 /CMM (1.8-8.9); NEUTROPHILS % (AUTO) 92.3 % (43.0-81.0); RDW COEFFICIENT OF VARIATION 16.6 (11.5-15.0); RED BLOOD CELL COUNT(AUTO) 2.44 MIL/uL (4.0-5.2); WHITE BLOOD COUNT (AUTO) 13.8 K/uL (4.3-11.0)
[2017-06-01 05:22] LABS: CALCIUM, SERUM 6.9 mg/dL (8.5-10.1); CARBON DIOXIDE 15 mmol/L (21-32); CHLORIDE 100 mmol/L (98-107); CREATININE 1.8 mg/dL (0.6-1.3); GLUCOSE 215 mg/dL (74-106); MAGNESIUM 1.6 mg/dL (1.8-2.4); PHOSPHORUS 5.4 mg/dL (2.5-4.9); POTASSIUM 3.7 mmol/L (3.5-5.1); SODIUM SERUM 127 mmol/L (136-145); UREA NITROGEN, BLOOD 27 mg/dL (7-18)
[2017-06-01] MEDS ORDERED: PANTOPRAZOLE 40 MG VIAL ONE (05:26)
[2017-06-01] MEDS: METOCLOPRAMIDE HCL 10 MG/2 ML VIAL IV SCH ×2 (05:32→12:19)
[2017-06-01] MEDS: BLOOD SUGAR DIAGNOSTIC 1 EACH STRIP IN SCH ×3 (05:32→11:04)
[2017-06-01] MEDS: PANTOPRAZOLE 80 MG in IV NS 0.9% 500 ML IV PRN (05:34)
[2017-06-01 05:40] LABS: PLATELET COUNT (AUTO) 27 /CMM (150-450)
--- NOTE | 2017-06-01 05:40 | NUR ---
RECEIVED ON [facility] VENT WITH NOTED SETTING. TRACH PROPERLY SECURED. VENT PLUGGED INTO RED OUTLET. ALARMS SET AND AUDIBLE. AMBU BAG AT [facility]. NO SOB OR RESP DISTRESS NOTED. PRN SX GIVEN NEEDED. NO ADVERSE REACTIONS/ SOB/ DISTRESS NOTED ALL SHIFT. Addendum: 06/01/17 at 0540 by WENDI CONDON RT Amended: Links added.
[2017-06-01] MEDS: IV D5/0.45 NACL 1,000 ML IV PRN (05:55)
--- NOTE | 2017-06-01 06:00 | NUR ---
IRRIGATING PUMP OPERATOR CRITICAL LABS H/H AND PLT REPORTED TO DR ARMAS. NO NEW ORDERS AT THIS TIME. WILL CONTINUE TO MONITOR.
[2017-06-01 06:19] LABS: BAND % (MANUAL) 6 % (0.0-5.0); LYMPHOCYTES % (MANUAL) 5 % (16-48); METAMYELOCYTES % 2 % (0-0); MYELOCYTES % 3 % (0-0); NEUTROPHILS % (MANUAL) 84 (42-76)
--- NOTE | 2017-06-01 07:00 | NUR ---
ICU INITIAL NOTES RECEIVED PT LETHARGIC. A/O X 0, NON-VERBAL, UNABLE TO RESPOND TO VERBAL AND TACTILE STIMULI, PT IS ON MECH VENT, PORTEX #8 AC 14, TV 500, FO2 35%, PEEP 0, SATING IN 60'S, NO S/S OF RESP DISTRESS. PT IS ON BEDSIDE MONITOR SHOWING CONTROLLED AFIB IN 80'S, SBP IN 60'S, PT HAS RCW HD CATH, DRESSING CLEAN AND DRY. GTUBE ON LIS, DARK BLOOD DRAINAGE NOTED.PT HAS TRUDY PICC, RUNNING D5 1/2 NS @ 40MLS/HR, SANDOSTATIN DRIP @ 10MLS/HR, PROTONIX DRIP @ 50MLS/HR, LEVOPHED @ 40 MCG/MIN,ZAY @300MCG/MIN, VASOPRESSIN @ 0.04U/HR, C/D/I/PATENT, FLUSHING WELL, NO S/S OF INFILTRATION/ INFECTION NOTED AT THIS TIME, PT IS NOTED WITH SKIN ISSUES, ALL WOUND TREATMENTS WILL BE CARRIED OUT, PT HAS GENERALIZED ANASARCA, WEEPING, ISOLATION PRECAUTIONS OBSERVED AT ALL TIMES, ALL SAFETY MEASURES IN PLACE AT ALL TIMES, CALL LIGHT WITHIN EASY REACH, WILL MONITOR PT CLOSELY FOR CHANGES
[2017-06-01] MEDS: VASOPRESSIN INJ 50 UNIT in IV D5W 497.5 ML IV PRN (07:51)
[2017-06-01] MEDS: OCTREOTIDE 1,250 MCG in IV NS 0.9% 247.5 ML IV PRN ×2 (07:52→07:59)
[2017-06-01] MEDS: Z GUARD REMEDY 2 OZ OINT TP PRN (08:13)
[2017-06-01] MEDS: HYDROGEL DRESSING 90 GM TUBE TP SCH (08:13)
[2017-06-01] MEDS: MUPIROCIN OINT 2% 22 GM TUBE SCH (08:14)
--- NOTE | 2017-06-01 08:31 | NUR ---
ICU NOTE DR. HAN MADE ROUNDS, AWARE OF LABS AND RESULTS, ORDERED, ABG, VENT CHANGES, FIO2 INCREASED TO 100%
--- NOTE | 2017-06-01 08:32 | NUR ---
ICU NOTE PT NOTED WITH 300ML DARK BLOOD DRAINAGE FROM GTUBE, BRIGHT RED BLOOD BM NOTED
--- NOTE | 2017-06-01 10:23 | NUR ---
ICU NOTE DR. MELÉNDEZ MADE ROUNDS, AWARE OF ALL LABS AND RESULTS, AWARE OF MAG 1.6, NO NEW ORDERS AT THIS TIME
--- NOTE | 2017-06-01 10:42 | NUR ---
ICU NOTE- [facility] WAS CALLED PER PT REQUESTED, LEFT MESSAGE, WILL CALL BACK WITH ETA, FAMILY INFORMED PT IS UNABLE TO BE TURNED AT THIS TIME, PT IS VERY UNSTABLE, MAXED OUT ON 3 PRESSORS
[2017-06-01] MEDS: LEVETIRACETAM (500MG) 500 MG in IV NS 0.9% 100 ML IV SCH (11:04)
--- NOTE | 2017-06-01 11:04 | NUR ---
ICU NOTE- ALL FAMILY AT BEDSIDE, LEATHER STRIPPING MACHINE OPERATOR IN ROOM FAMILY REFUSED PM MEDICATIONS
[2017-06-01] MEDS ORDERED: Magnesium 1GM/D5W 100ML PREMIX 100 ML IV SCH (11:30)
--- NOTE | 2017-06-01 11:43 | NUR ---
ICU NOTE PER FAMILY REQUEST, PT IS NOT ALLERGIC TO MORPHINE, PER DR. MELÉNDEZ ORDERED 2MG IVP Q2H MORPHINE.
[2017-06-01] MEDS ORDERED: MORPHINE SULFATE INJ 2 MG/ML DISP.SYRIN IV PRN (12:00)
[2017-06-01] MEDS: NOREPINEPHRINE 16 MG in IV D5W 500 ML IV PRN (12:12)
[2017-06-01] MEDS ORDERED: MORPHINE SULFATE INJ 4 MG/ML DISP.SYRIN IV PRN (12:30)
[2017-06-01] MEDS: LORAZEPAM INJ 2 MG/ML VIAL IV PRN (12:33)
--- NOTE | 2017-06-01 12:36 | NUR ---
ICU NOTE- FAMILY REQUESTED FOR ATIVAN AND MORPHINE TO BE GIVEN, MEDICATION GIVEN PER ORDER
--- NOTE | 2017-06-01 13:06 | NUR ---
ICU NOTE- ALL FAMILY AT BEDSIDE, BP 26/17, HR 50 BPM, RR 16, O2 SATURATION 23%. PT STILL MAXED OUT OF 3 PRESSORS. AWARE
--- NOTE | 2017-06-01 13:51 | NUR ---
ICU NOTE- PT IS AGONAL ON MONITOR, UNABLE TO GET BP, FAMILY AT BEDSIDE.
--- NOTE | 2017-06-01 13:58 | NUR ---
RN NOTE PT DNR STATUS ON TRIPLE PRESSORS. FOUND PT ASYSTOLIC, APNEIC, AREFLEXIVE. PRONOUNCED . FAMILY AT BEDSIDE
--- NOTE | 2017-06-01 13:58 | NUR ---
NOTE- PT DNR STATUS, PT IS ON MAXED OUT ON 3 PRESSORS, PT IS ASYSTOLIC, APNEIC, AREFLEXIVE, APICAL PULSE ABSENT, PRONOUNCED BY LAZ CHARGE NURSE, FAMILY AT BEDSIDE. [facility] CALLED, CASE # [id number], NOTIFIED. ORACLE ERP ARCHITECT AWARE.
--- NOTE | 2017-06-01 15:02 | NUR ---
ICU NOTE- FAMILY HAS ALL PT'S BELONGINGS.
--- NOTE | 2017-06-01 16:40 | NUR ---
ICU NOTE- PT CLEANED AND PREPPED, [place] [facility] [place], FAMILY AWARE, ARRANGEMENTS MADE
[2017-06-01] MEDS ORDERED: FAMOTIDINE/PF INJ 20 MG/2 ML VIAL IV SCH (21:00)
== END 2017-06-01 13:58 | disposition expired | DRG 197 ==
LOC: ER 20:08 → ICU 21:57
PROVIDERS: ADMIT Internal Medicine Nephrology; ATTEND Internal Medicine Nephrology
DX: I86.4 Gastric varices (principal); J90 Pleural effusion, not elsewhere classified; K31.6 Fistula of stomach and duodenum; R18.8 Other ascites; I95.9 Hypotension, unspecified; Z99.11 Dependence on respirator [ventilator] status; R57.8 Other shock; R57.1 Hypovolemic shock; J96.11 Chronic respiratory failure with hypoxia; E46 Unspecified protein-calorie malnutrition; I12.0 Hypertensive chronic kidney disease with stage 5 chronic kidney disease or end stage renal disease; N18.6 End stage renal disease; Z66 Do not resuscitate; Z51.5 Encounter for palliative care; L89.159 Pressure ulcer of sacral region, unspecified stage; Z93.0 Tracheostomy status; D69.6 Thrombocytopenia, unspecified; R13.10 Dysphagia, unspecified; E11.22 Type 2 diabetes mellitus with diabetic chronic kidney disease; K21.9 Gastro-esophageal reflux disease without esophagitis; K74.69 Other cirrhosis of liver; Z86.73 Personal history of transient ischemic attack (TIA), and cerebral infarction without residual deficits; Z99.2 Dependence on renal dialysis; Z79.899 Other long term (current) drug therapy; E78.5 Hyperlipidemia, unspecified; D64.9 Anemia, unspecified; G40.909 Epilepsy, unspecified, not intractable, without status epilepticus; Z88.5 Allergy status to narcotic agent; Z88.2 Allergy status to sulfonamides; Z88.0 Allergy status to penicillin; Z88.8 Allergy status to other drugs, medicaments and biological substances; K74.60 Unspecified cirrhosis of liver; K76.6 Portal hypertension; K31.89 Other diseases of stomach and duodenum; I48.91 Unspecified atrial fibrillation; L98.9 Disorder of the skin and subcutaneous tissue, unspecified; M89.9 Disorder of bone, unspecified; I27.20 Pulmonary hypertension, unspecified
CPT/HCPCS: 31720; 36415; 36569; 71010-TC; 80048-TC; 80053-TC; 80076-TC; 82962-TC; 83540-TC; 83690-TC; 83735-TC; 84100-TC; 84484-TC; 85025-TC; 85027-TC; 85730-TC; 86850-TC; 86921-TC; 87081-TC; 90935-TC; 94002-TC; 94003-TC; 94762-TC; 99082-TC; A4216; A4606; A6248; A6402; A7526; A9512; A9560; C9113; J0171; J0885; J1160; J1200; J1815; J1953; J2060; J2270; J2354; J2370; J2405; J2550; J2597; J2704; J2765; J3475; J3480; J3490; J7030; J7040; J7050; J7060; P9016-BL; P9017-BL; P9034-BL; P9047; Z7610